=== PATIENT | male | born 1950 | race Caucasian/White ===

== ENCOUNTER → 2016-06-20 | Outpatient (CLI) | payer MEDICARE, OTHER ==
[2016-06-20 13:42] LABS: Anion Gap 11 mmol/L; Blood Urea Nitrogen 15 mg/dL (9-20); Calcium 9.6 mg/dL (8.4-10.2); Carbon Dioxide 26 mmol/L (22-30); Chloride 105 mmol/L (98-107); Glucose 126 mg/dL (74-99); Iron 72 ug/dL (49-181); Magnesium 1.7 mg/dL (1.6-2.3); Non-African American GFR(MDRD) 51 (>60 ml/min/1.73 sqM); Phosphorous 3.7 mg/dL (2.5-4.5); Potassium 4.4 mmol/L (3.5-5.1); Sodium 142 mmol/L (137-145); Uric Acid 6.7 mg/dL (3.5-8.5)
[2016-06-20 13:48] LABS: CH 29.9; CHCM 35.5; HCT 44.3 % (39.0-53.0); HGB 15.3 gm/dL (13.0-17.5); MCH 29.1 pg (25.0-35.0); MCHC 34.5 g/dL (31.0-37.0); MCV 84.3 fL (80.0-100.0); Mean Platelet Volume 6.8; RBC 5.25 m/uL (4.30-5.90); RDW 14.1 % (11.5-15.5); WBC 6.1 k/uL (3.8-10.6)
[2016-06-20 13:52] LABS: % Iron Saturation 22.6 % (20-50); Total Iron Binding Capacity 318 ug/dL (261-462)
[2016-06-21 12:31] LABS: Mis test requested (Non-blood) Urine Total Protein
== END | disposition home or self-care (01) ==
LOC: LABWHC1 12:36
PROVIDERS: ATTEND Nurse Practitioner Family
DX: N18.3 Chronic kidney disease, stage 3 (moderate) (principal); D64.9 Anemia, unspecified; E21.3 Hyperparathyroidism, unspecified; E55.9 Vitamin D deficiency, unspecified; M10.9 Gout, unspecified; N39.0 Urinary tract infection, site not specified; R80.9 Proteinuria, unspecified
CPT/HCPCS: 36415; 80048; 81050; 82306; 82728; 83540; 83550; 83735; 83970; 84100; 84156; 84550; 85027

== ENCOUNTER → 2016-07-25 | Outpatient (CLI) | payer MEDICARE, OTHER ==
[2016-07-25 19:30] LABS: Non-African American GFR(MDRD) 51 (>60 ml/min/1.73 sqM)
--- NOTE | 2016-07-25 22:13 | MR ---
EXAMINATION TYPE: MR brain wo/w mraneck wo/w con DATE OF EXAM: 07/25/2016 9:22 PM COMPARISON: MRI brain April 20, 2016. CT brain April 18, 2016. Carotid ultrasound April 20. HISTORY: HEADACHES, DIZZY, LOSS OF MEMORY, PROSTATE CA 2010 TECHNIQUE: Multiplanar, multisequence images of the brain and brainstem is performed without and with IV contras t, utilizing 20 mL intravenous MultiHance . MRA imaging of the neck focusing on carotid vessels was p erformed without and with IV contrast, 2-D and 3-D reconstructed images are created on MRI scanner an d reviewed. FINDINGS: Diffusion weighted images demonstrate no evidence of a recent infarct or other diffusion ab normality on current study. There is no worrisome extra-axial fluid collection. There is ventricular and sulcal prominence consistent with mild diffuse cerebral atrophy. Degree of ventricular dilatatio n is out of proportion to degree of sulcal prominence and a normal pressure hydrocephalus is not excl uded the ventricular size is not significantly changed from prior exams. 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 There is occasional focus of T2 hyperintensity seen throughout the w chapis matter bilaterally. Less than 6 small lesions are again identified. Lesions are presumed on basi s of product of chronic small vessel ischemic change in patient of this age. Midline structures demonstrate normal morphology. The craniocervical junction appears within normal limits. Post contrast images demonstrate no abnormal enhancement. The dural venous sinuses appear pa tent. The visualized sinuses are clear and the globes are intact. Increased fluid signal bilateral ma stoid air cells is again seen. IMPRESSION: There is mild diffuse cerebral atrophy and chronic small vessel ischemic change with a mi ld hydrocephalus excluded, no significant change from prior study is seen. Infarct inferior medial ri ght cerebellum is redemonstrated now chronic in age. Bilateral mastoid fluid is also redemonstrated. MRA NECK: There is normal three-vessel origin from the aortic arch. The right common carotid artery shows chai l origin from the right brachiocephalic artery. There is no significant focal plaque or stenosis in v isualized portion of common or internal carotid arteries bilaterally. There is patent external caroti d artery without significant stenosis identified. There is no significant plaque or stenosis left common or internal carotid arteries. No significant s tenosis is seen in patent left external carotid artery. Both internal carotid arteries are seen up to level of [place]. There is dominant right vertebral artery. Vertebral arteries are patent to the basilar junction. IMPRESSION: No significant focal stenosis in common or internal carotid arteries bilaterally. Finding s correlate with recent carotid ultrasound.
== END | disposition home or self-care (01) ==
LOC: RADMRIMAIN 18:42
PROVIDERS: ATTEND Psychiatry & Neurology Pain Medicine
DX: G31.9 Degenerative disease of nervous system, unspecified (principal); I67.82 Cerebral ischemia; I63.9 Cerebral infarction, unspecified
CPT/HCPCS: 82565; 70549; 70553; A9577

== ENCOUNTER → 2016-08-08 | Outpatient (CLI) | payer MEDICARE, OTHER ==
--- NOTE | 2016-08-09 09:02 | NM ---
EXAMINATION TYPE: NM DatScan Brain SPECT DATE OF EXAM: 08/08/2016 2:58 PM COMPARISON: NONE HISTORY: Memory loss TECHNIQUE: 10 drops of Lugol's solution was administered 1 hour prior to injection as a thyroid bloc edward agent. After the administration of 4.5 mCi I-123 Ioflupane DaTscan. Images obtained [address] injection. SPECT images of the brain were acquired with axial and coronal reconstructions. FINDINGS: Distribution of radiotracer is within normal limits. IMPRESSION: NORMAL NUCLEAR MEDICINE DATSCAN.
== END | disposition home or self-care (01) ==
LOC: RADNMMAIN 09:57
PROVIDERS: ATTEND Psychiatry & Neurology Neurology
DX: R41.3 Other amnesia (principal)
CPT/HCPCS: 78607; A9584

== ENCOUNTER 2016-10-04 09:12 | Observation (INO) | payer MEDICARE, OTHER ==
--- NOTE | 2016-10-04 09:24 | ED ---
General Adult HPI - General Chief complaint: Chest Pain Stated complaint: chest pain Time Seen by Provider: 10/04/16 09:17 Source: patient, EMS, RN notes reviewed Mode of arrival: EMS Limitations: no limitations - History of Present Illness Initial comments: Patient is a pleasant 65-year-old male presenting to the emergency department complaining of chest discomfort. Onset was around 4 AM. Symptoms lasted around 30 minutes. Symptoms awoke him from sleep. Symptoms have now resolved. Discomfort was sharp in the left chest. No associated dyspnea, nausea, or diaphoresis. Discomfort was severe. Patient has had similar symptoms previously associated with heart attack. - Related Data Home Medications Medication Instructions Recorded Confirmed Aspirin 81 mg PO DAILY 01/12/15 10/04/16 Kennedy-3 Acid Ethyl Esters [Lovaza] 1 cap PO DAILY 01/12/15 10/04/16 Gabapentin 800 mg PO BID 04/18/16 10/04/16 INSULIN LISPRO (For Pump) [humaLOG 0.01 units SQ-PUMP CONTINUOUS 04/18/16 (For Pump)] Previous Rx's Medication Instructions Recorded Atorvastatin [Lipitor] 40 mg PO HS #30 tab 01/17/15 Isosorbide Mononitrate ER [Imdur] 30 mg PO DAILY #30 tab.er.24h 01/17/15 Losartan [Cozaar] 50 mg PO DAILY #30 tab 01/17/15 Metoprolol Tartrate [Lopressor] 25 mg PO DAILY #30 tab 01/17/15 Nitroglycerin Sl Tabs [Nitrostat] 0.4 mg SUBLINGUAL Q5M PRN #25 tab 01/17/15 Prasugrel [Effient] 10 mg PO DAILY #30 tab 01/17/15 Allergies Allergy/AdvReac Type Severity Reaction Status Date / Time No Known Allergies Allergy Verified 10/04/16 09:54 Review of Systems ROS Statement: Those systems with pertinent positive or pertinent negative responses have been documented in the HPI. ROS Other: All systems not noted in ROS Statement are negative. Constitutional: Denies: fever Eyes: Denies: eye pain ENT: Denies: ear pain Respiratory: Denies: cough, dyspnea Cardiovascular: Reports: chest pain Endocrine: Denies: fatigue Gastrointestinal: Denies: abdominal pain Genitourinary: Denies: dysuria Musculoskeletal: Denies: back pain Skin: Denies: rash Neurological: Denies: weakness Past Medical History Past Medical History: Coronary Artery Disease (CAD), Cancer, Chest Pain / Angina , Diabetes Mellitus, Hyperlipidemia, Hypertension, Myocardial Infarction ([place]), Osteoarthritis (OA), Pneumonia Additional Past Medical History / Comment(s): neuropathy, prostate CA-GOLD IMPLANTS,PSORIASES,KIDNEY STONES, FX VERTEBRE(L3-L4-L5-S1)HAS CHRONIC BACK PAIN Last Myocardial Infarction Date:: 2010 History of Any Multi-Drug Resistant Organisms: None Reported Past Surgical History: Heart Catheterization With Stent Additional Past Surgical History / Comment(s): COLONOCOSPY, LUMBAR EPIDURAL INJ , STRESS TEST FEW MONTHS AGO-WNL, total 4 cardiac stents,juventino cataracts Past Anesthesia/Blood Transfusion Reactions: No Reported Reaction Additional Past Anesthesia/Blood Transfusion Reaction / Comment(s): CLAUSTERPHOBIC Date of Last Stent Placement:: 2010 Past Psychological History: No Psychological Hx Reported Additional Psychological History / Comment(s): PT LIVES AT HOME WITH HIS KWAN IS INDEPENDANT WITH HIS OWN CARE. USED TO WORK FOR [employer]. Smoking Status: Former smoker Past Alcohol Use History: None Reported Additional Past Alcohol Use History / Comment(s): USED TO SMOKE CIGARS Past Drug Use History: None Reported - Past Family History Father Family Medical History: Cancer Additional Family Medical History / Comment(s): BLADDER CANCER Mother Family Medical History: Cancer Additional Family Medical History / Comment(s): UTERINE CANCER General Exam Limitations: no limitations General appearance: alert, in no apparent distress Head exam: Present: atraumatic Eye exam: Present: normal appearance, PERRL ENT exam: Present: normal oropharynx Neck exam: Present: normal inspection Respiratory exam: Present: normal lung sounds bilaterally. Absent: chest wall tenderness Cardiovascular Exam: Present: regular rate, normal rhythm Expanded Peripheral pulses: 2+: Radial (R), Radial (L), Dorsalis Pedis (R), Dorsalis Pedis (L) GI/Abdominal exam: Present: soft. Absent: tenderness Extremities exam: Present: normal inspection. Absent: pedal edema, calf tenderness Neurological exam: Present: alert Psychiatric exam: Present: normal affect, normal mood Skin exam: Absent: rash Course Vital Signs 10/04/16 10/04/16 09:19 10:19 Temperature 98.7 F Pulse Rate 90 84 Respiratory 18 18 Rate Blood Pressure 177/97 150/84 O2 Sat by Pulse 97 97 Oximetry EKG Findings - EKG Comments: EKG Findings:: Normal sinus rhythm and 92. Normal intervals. Normal axis. Inferior Q waves. No acute ST change. Shows artifact in V2. Medical Decision Making - Medical Decision Making Patient reexamined and resting comfortably in bed. Patient symptom-free at this time. Patient and family updated on results and plan. Case was discussed in detail with Dr. Gold, who will admit his patient. - Lab Data Result diagrams: 10/04/16 09:30 10/04/16 09:30 Lab Results 10/04/16 10/04/16 10/04/16 Range/Units 09:30 09:30 09:30 WBC 6.8 (3.8-10.6) k/uL RBC 4.25 L (4.30-5.90) m/uL Hgb 12.7 L (13.0-17.5) gm/dL Hct 37.0 L (39.0-53.0) % MCV 86.9 (80.0-100.0) fL MCH 29.9 (25.0-35.0) pg MCHC 34.4 (31.0-37.0) g/dL RDW 14.2 (11.5-15.5) % Plt Count 228 (150-450) k/uL Neutrophils % 82 % Lymphocytes % 7 % Monocytes % 7 % Eosinophils % 2 % Basophils % 1 % Neutrophils # 5.6 (1.3-7.7) k/uL Lymphocytes # 0.5 L (1.0-4.8) k/uL Monocytes # 0.5 (0-1.0) k/uL Eosinophils # 0.1 (0-0.7) k/uL Basophils # 0.0 (0-0.2) k/uL PT (9.0-12.0) sec INR (<1.1) APTT (22.0-30.0) sec Sodium 138 (137-145) mmol/L Potassium 4.6 (3.5-5.1) mmol/L Chloride 105 (98-107) mmol/L Carbon Dioxide 24 (22-30) mmol/L Anion Gap 9 mmol/L BUN 19 (9-20) mg/dL Creatinine 1.48 H (0.66-1.25) mg/dL Est GFR (MDRD) Af Amer 58 (>60 ml/min/1.73 sqM) Est GFR (MDRD) Non-Af 48 (>60 ml/min/1.73 sqM) Glucose 280 H (74-99) mg/dL Calcium 9.4 (8.4-10.2) mg/dL Magnesium 1.6 (1.6-2.3) mg/dL Total Bilirubin 1.2 (0.2-1.3) mg/dL AST 47 (17-59) U/L ALT 76 H (21-72) U/L Alkaline Phosphatase 227 H (38-126) U/L Total Creatine Kinase 77 (55-170) U/L CK-MB (CK-2) 0.5 (0.0-2.4) ng/mL CK-MB (CK-2) Rel Index 0.6 Troponin I <0.012 (0.000-0.034) ng/mL Total Protein 6.2 L (6.3-8.2) g/dL Albumin 3.4 L (3.5-5.0) g/dL 10/04/16 Range/Units 09:30 WBC (3.8-10.6) k/uL RBC (4.30-5.90) m/uL Hgb (13.0-17.5) gm/dL Hct (39.0-53.0) % MCV (80.0-100.0) fL MCH (25.0-35.0) pg MCHC (31.0-37.0) g/dL RDW (11.5-15.5) % Plt Count (150-450) k/uL Neutrophils % % Lymphocytes % % Monocytes % % Eosinophils % % Basophils % % Neutrophils # (1.3-7.7) k/uL Lymphocytes # (1.0-4.8) k/uL Monocytes # (0-1.0) k/uL Eosinophils # (0-0.7) k/uL Basophils # (0-0.2) k/uL PT 10.1 (9.0-12.0) sec INR 1.0 (<1.1) APTT 23.0 (22.0-30.0) sec Sodium (137-145) mmol/L Potassium (3.5-5.1) mmol/L Chloride (98-107) mmol/L Carbon Dioxide (22-30) mmol/L Anion Gap mmol/L BUN (9-20) mg/dL Creatinine (0.66-1.25) mg/dL Est GFR (MDRD) Af Amer (>60 ml/min/1.73 sqM) Est GFR (MDRD) Non-Af (>60 ml/min/1.73 sqM) Glucose (74-99) mg/dL Calcium (8.4-10.2) mg/dL Magnesium (1.6-2.3) mg/dL Total Bilirubin (0.2-1.3) mg/dL AST (17-59) U/L ALT (21-72) U/L Alkaline Phosphatase (38-126) U/L Total Creatine Kinase (55-170) U/L CK-MB (CK-2) (0.0-2.4) ng/mL CK-MB (CK-2) Rel Index Troponin I (0.000-0.034) ng/mL Total Protein (6.3-8.2) g/dL Albumin (3.5-5.0) g/dL - Radiology Data Radiology results: image reviewed (Chest x-ray shows left lower lobe atelectasis versus pneumonia) Disposition Clinical Impression: Unstable angina pectoris Disposition: ADMITTED IP TO THIS HOSP
[2016-10-04 09:47] LABS: Basophils % (A) 1 %; CH 30.7; CHCM 35.4; Eosinophils # (A) 0.1 k/uL (0-0.7); Eosinophils % (A) 2 %; HDW 3.25; HGB 12.7 gm/dL (13.0-17.5); Luc # (Auto) 0.17; Luc % (Auto) 3; Lymphocytes # (A) 0.5 k/uL (1.0-4.8); Lymphocytes % (A) 7 %; MCH 29.9 pg (25.0-35.0); MCHC 34.4 g/dL (31.0-37.0); MCV 86.9 fL (80.0-100.0); Mean Platelet Volume 6.8; Monocytes # (A) 0.5 k/uL (0-1.0); Monocytes % (A) 7 %; Neutrophils # (A) 5.6 k/uL (1.3-7.7); Neutrophils % (A) 82 %; RBC 4.25 m/uL (4.30-5.90); RDW 14.2 % (11.5-15.5); WBC 6.8 k/uL (3.8-10.6); WBC (Perox) 6.78
[2016-10-04 09:56] LABS: Prothrombin Time 10.1 sec (9.0-12.0)
[2016-10-04 10:00] LABS: Calcium 9.4 mg/dL (8.4-10.2); Magnesium 1.6 mg/dL (1.6-2.3); Potassium 4.6 mmol/L (3.5-5.1); Total Bilirubin 1.2 mg/dL (0.2-1.3); Total Protein 6.2 g/dL (6.3-8.2)
[2016-10-04 10:11] LABS: Creatine Kinase 77 U/L (55-170)
--- NOTE | 2016-10-04 10:20 | XR ---
EXAMINATION TYPE: XR chest 2V DATE OF EXAM: 10/04/2016 10:03 AM COMPARISON: 04/18/2016 INDICATION: Chest pain TECHNIQUE: 2 view chest x-ray FINDINGS: The heart size is normal. The pulmonary vasculature is normal. There is streak opacities at the right base. This present previously. Consider scarring. The lateral projection there is increased density in the retrocardiac region appears to be at the lef t base on the frontal view. Clinical correlation for mild left lower lobe atelectasis or pneumonia is recommended. IMPRESSION: 1. Left lower lobe atelectasis or pneumonia. 2. Suspected scarring right base
[2016-10-04 10:24] LABS: Creatine Kinase MB 0.5 ng/mL (0.0-2.4); Troponin I <0.012 ng/mL (0.000-0.034)
[2016-10-04] MEDS ORDERED: NITROGLYCERIN SL TABS 0.4 MG TAB SUBLINGUAL PRN (10:50)
[2016-10-04] MEDS ORDERED: HEPARIN SODIUM,PORCINE 5,000 UNIT/ML 1 ML VIAL IV ONE (10:50)
[2016-10-04] MEDS ORDERED: HEPARIN SODIUM,PORCINE/D5W PMX 25,000 UNIT in DEXTROSE/WATER 1 500ML.BAG IV SCH (11:00)
[2016-10-04 11:58] LABS: Glucose,Whole Blood 306 mg/dL (75-99)
[2016-10-04 14:14] VITALS: BMI 35.4
[2016-10-04] MEDS ORDERED: INSULIN LISPRO (For Pump) 100 UNIT/ML VIAL SQ-PUMP SCH (14:45)
[2016-10-04] MEDS: NITROGLYCERIN OINT 1 INCH/GM PACKET TOPICAL SCH ×2 (17:03→23:16)
[2016-10-04 17:22] LABS: Creatine Kinase 70 U/L (55-170)
[2016-10-04 17:23] LABS: Glucose,Whole Blood 175 mg/dL (75-99)
[2016-10-04 17:35] LABS: Creatine Kinase MB 0.5 ng/mL (0.0-2.4); Troponin I <0.012 ng/mL (0.000-0.034)
[2016-10-04] MEDS: HEPARIN SODIUM,PORCINE 5,000 UNIT/ML 1 ML VIAL IV PRN (18:20)
[2016-10-04 22:01] LABS: Creatine Kinase 60 U/L (55-170)
[2016-10-04 22:12] LABS: Creatine Kinase MB 0.5 ng/mL (0.0-2.4); Troponin I <0.012 ng/mL (0.000-0.034)
[2016-10-04] MEDS: GABAPENTIN 400 MG CAP PO SCH (23:21)
[2016-10-04] MEDS: ATORVASTATIN 40 MG TAB PO SCH (23:22)
[2016-10-04 23:35] LABS: Glucose,Whole Blood 103 mg/dL (75-99)
[2016-10-05] MEDS: NITROGLYCERIN OINT 1 INCH/GM PACKET TOPICAL SCH (01:30)
[2016-10-05] MEDS: HEPARIN SODIUM,PORCINE 5,000 UNIT/ML 1 ML VIAL IV PRN (04:46)
[2016-10-05 07:00] LABS: Glucose,Whole Blood 95 mg/dL (75-99)
[2016-10-05 07:17] LABS: Mean Platelet Volume 6.7
[2016-10-05 07:27] LABS: Cholesterol 166 mg/dL (<200); HDL Cholesterol 40 mg/dL (40-60); Triglycerides 178 mg/dL (<150)
--- NOTE | 2016-10-05 08:55 | US ---
EXAMINATION TYPE: US gallbladder DATE OF EXAM: 10/05/2016 8:04 AM COMPARISON: NONE CLINICAL HISTORY: 65-year-old male with right upper quadrant and chest pain. TECHNIQUE: Multiple sonographic images of the right upper quadrant are obtained. FINDINGS: [employer] NOTES: Patient of large body habitus, with large abdomen and extensive midline bowel gas causing technical limitations. Liver Length: 19.5 cm Gallbladder Wall: 0.4 cm CBD: 0.3 cm Right Kidney: 12.0 x 4.5 x 5.2 cm Pancreas: Obscured by bowel gas Liver: Left lobe not well seen due to bowel gas shadowing. The liver is enlarged with a echogenic an d heterogeneous appearance with far field attenuation. This secondary limits assessment for focal les ion. Gallbladder: Calculi are present. No abnormal gallbladder distention, wall thickening, or pericholecy stic fluid. Evidence for sonographic Gonzalez's sign: No CBD: Only a small portion is visualized showing normal caliber. Right Kidney: No hydronephrosis. IMPRESSION: 1. Technical limitations as above. 2. Hepatomegaly with changes in liver echotexture suggesting hepatic steatosis. Correlate with LFTs, lipid profile, and patient risk factors. 3. Cholelithiasis without ancillary findings of acute cholecystitis.
[2016-10-05] MEDS: GABAPENTIN 400 MG CAP PO SCH ×2 (08:58→21:00)
[2016-10-05] MEDS: ASPIRIN 325 MG TAB PO SCH (08:58)
[2016-10-05] MEDS ORDERED: PNEUMONIA PROTOCOL UTILIZED 1 EACH MISC PO PRN (11:32)
[2016-10-05] MEDS ORDERED: LEVOFLOXACIN 750MG-D5W PMX 750 MG in DEXTROSE/WATER 1 150ML.BAG IVPB STA (11:59)
[2016-10-05] MEDS: ISOSORBIDE MONONITRATE ER 30 MG TAB.ER.24H PO SCH (12:02)
[2016-10-05] MEDS: METOPROLOL TARTRATE 25 MG TAB PO SCH (12:03)
[2016-10-05] MEDS: LOSARTAN 50 MG TAB PO SCH (12:03)
--- NOTE | 2016-10-05 12:12 | P.CRDCN ---
History of Present Illness Consult date: 10/05/16 History of present illness: This is a 65-year-old gentleman with history of a diffuse coronary artery disease and one multiple stent placements comes here because of left-sided chest pain. History had a recent stress test which showed normal perfusion function. Apparently he woke up around 4:00 in the morning and had severe chest pain on the left side of the chest. Any body movements or coughing would aggravate the pain. As long as patient is still, he doesn't have any chest pain. He is having symptoms of bronchitis and cough for several days. His cardiac enzymes are negative. EKG did not reveal any acute changes. Chest x- ray showed findings consistent with a pneumonia on the left side. His pains appear to be pleuritic and probably noncardiac in nature. His liver enzymes and alkaline phosphatase mildly elevated. However, ultrasound of the gallbladder did not reveal any findings of acute cholecystitis. Most probably these are pleuritic in nature and related to pneumonia. No further cardiac testing is suggested. Review of Systems REVIEW OF SYSTEMS: CONSTITUTIONAL:. Patient is doing well. No complaints of fever or chills EYES: Denies diplopia, blurring of vision EARS, NOSE, MOUTH, THROAT: Denies headaches, denies sore throat. CARDIOVASCULAR: As per HPI RESPIRATORY: As per HPI GASTROINTESTINAL: Denies change in appetite, denies abdominal pain, denies diarrhea GENITOURINARY: Denies hematuria, denies infections. MUSKULOSKELETAL: Denies pain, denies swelling. Denies any cramps or claudication INTEGUMENTARY: Denies rash, denies eczema. NEUROLOGICAL: Denies focal weakness, or visual disturbance. Denies any dizziness or syncope PSYCHIATRIC: Denies anxiety, denies depression. HEMATOLOGIC/LYMPHATIC: Denies any bleeding, denies enlarged lymph nodes. Past Medical History Past Medical History: Coronary Artery Disease (CAD), Cancer, Chest Pain / Angina , CVA/TIA, Diabetes Mellitus, Hyperlipidemia, Hypertension, Myocardial Infarction ([place]), Osteoarthritis (OA), Pneumonia Additional Past Medical History / Comment(s): neuropathy, prostate CA-(GOLD IMPLANTS for prostate CA) ,PSORIASES,KIDNEY STONES, FX VERTEBRE(L3-L4-L5-S1)HAS CHRONIC BACK PAIN...1 stent in 2010 and 3 stents in 2014...stroke April 18, 2016 Last Myocardial Infarction Date:: 2010 History of Any Multi-Drug Resistant Organisms: None Reported Past Surgical History: Heart Catheterization With Stent Additional Past Surgical History / Comment(s): COLONOCOSPY, LUMBAR EPIDURAL INJ , STRESS TEST FEW MONTHS AGO-WNL, total 4 cardiac stents (2010 1 stent and 2014 3 stents),juventino cataracts Past Anesthesia/Blood Transfusion Reactions: No Reported Reaction Additional Past Anesthesia/Blood Transfusion Reaction / Comment(s): CLAUSTERPHOBIC Date of Last Stent Placement:: 2010 Past Psychological History: No Psychological Hx Reported Additional Psychological History / Comment(s): PT LIVES AT HOME WITH HIS KWAN IS INDEPENDANT WITH HIS OWN CARE. 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 Smoking Status: Former smoker Past Alcohol Use History: None Reported Additional Past Alcohol Use History / Comment(s): USED TO SMOKE CIGARS Past Drug Use History: None Reported - Past Family History Father Family Medical History: Cancer Additional Family Medical History / Comment(s): BLADDER CANCER Mother Family Medical History: Cancer Additional Family Medical History / Comment(s): UTERINE CANCER Medications and Allergies Home Medications Medication Instructions Recorded Confirmed Type Aspirin 81 mg PO DAILY 01/12/15 10/04/16 History Offerle-3 Acid Ethyl Esters [Lovaza] 1 cap PO DAILY 01/12/15 10/04/16 History Gabapentin 800 mg PO BID 04/18/16 10/04/16 History INSULIN LISPRO (For Pump) [humaLOG 0.01 units SQ-PUMP CONTINUOUS 04/18/16 History (For Pump)] Allergies Allergy/AdvReac Type Severity Reaction Status Date / Time No Known Allergies Allergy Verified 10/04/16 09:54 Physical Exam Vitals: Vital Signs Temp Pulse Pulse Pulse Resp BP Pulse Ox 10/05/16 08:00 97.7 F 86 18 119/79 93 L 10/05/16 04:00 98 F 89 16 151/76 95 10/05/16 00:00 97.8 F 91 16 138/67 97 10/04/16 20:00 97.8 F 86 16 173/84 95 10/04/16 16:00 98.7 F 77 16 148/65 95 10/04/16 12:35 98.8 F 91 16 147/93 93 L Intake and Output 10/04/16 10/05/16 10/05/16 22:59 06:59 14:59 Intake Total 145.188 279.405 Balance 145.188 279.405 Intake: Intake, IV Titration 145.188 279.405 Amount Heparin Sodium,Porcine/ 145.188 279.405 D5w Pmx 25,000 unit In Dextrose/Water 1 500ml. bag @ 8.81 UNITS/KG/HR 19 .98 mls/hr IV .Q24H [facility] Rx#:[id number] Other: Voiding Method Toilet Toilet # Voids 2 0 GENERAL EXAM: Patient is alert and oriented and doesn't appear to be in any acute distress HEENT: Normocephalic. Normal reaction of pupils, equal size, normal range of extraocular motion. No erythema or exudates in the throat. NECK: No masses, no nuchal rigidity. CHEST: No chest wall deformity. LUNGS: Diffuse rhonchi and wheezing HEART: S1 and S2 normal with no audible mumurs or gallops. Regular rhythm, femorals equal on both sides.. ABDOMEN: No hepatosplenomegaly, normal bowel sounds, no guarding or rigidity. SKIN: No rashes CENTRAL NERVOUS SYSTEM: No focal deficits. EXTREMITIES: No cyanosis, clubbing or edema. Results 10/05/16 07:05 10/04/16 09:30 Cardiac Enzymes 10/04/16 10/04/16 Range/Units 16:36 21:09 CK-MB (CK-2) 0.5 0.5 (0.0-2.4) ng/mL Troponin I <0.012 <0.012 (0.000-0.034) ng/mL Coagulation 10/04/16 10/05/16 Range/Units 16:36 00:28 APTT 27.9 34.5 H (22.0-30.0) sec Lipids 10/05/16 Range/Units 06:59 Triglycerides 178 H (<150) mg/dL Cholesterol 166 (<200) mg/dL HDL Cholesterol 40 (40-60) mg/dL CBC 10/05/16 Range/Units 07:05 Plt Count 237 (150-450) k/uL Current Medications Generic Name Dose Route Start Last Admin Trade Name Freq PRN Reason Stop Dose Admin Aspirin 325 mg 10/05/16 09:00 10/05/16 08:58 Aspirin PO 325 mg DAILY [facility] Administration Atorvastatin Calcium 40 mg 10/04/16 21:00 10/04/16 23:22 Lipitor PO 40 mg HS PA Administration Gabapentin 800 mg 10/04/16 21:00 10/05/16 08:58 Neurontin PO 800 mg BID PA Administration Heparin Sodium (Porcine) 0 unit 10/04/16 10:50 10/05/16 04:46 Heparin IV 4,000 unit Q6HR PRN Administration Low PTT Protocol Heparin Sodium/Dextrose 25,000 500 mls @ 19.98 mls/hr 10/04/16 11:00 04:47 unit/ IV Solution IV 14.46 units/kg/hr .Q24H PA 32.8 mls/hr Protocol Titration 8.81 UNITS/KG/HR Levofloxacin 750 mg/ IV 150 mls @ 100 mls/hr 10/05/16 11:59 Solution IVPB 10/05/16 13:28 ONCE STA Insulin Human Lispro 0.01 unit 10/04/16 14:45 10/04/16 18:02 Humalog (For Pump) SQ-PUMP Not Given CONTINUOUS PA Isosorbide Mononitrate 30 mg 10/05/16 09:00 10/05/16 12:02 Imdur PO 30 mg DAILY PA Administration Levofloxacin 750 mg 10/06/16 12:00 Levaquin PO 10/11/16 12:01 Q24H PA Losartan Potassium 50 mg 10/05/16 09:00 10/05/16 12:03 Cozaar PO 50 mg DAILY PA Administration Metoprolol Tartrate 25 mg 10/05/16 09:00 10/05/16 12:03 Lopressor PO 25 mg DAILY PA Administration Miscellaneous Information 1 each 10/05/16 11:32 Pneumonia Protocol Utilized PO ONCE PRN Per Protocol Nitroglycerin 0.4 mg 10/04/16 10:50 Nitrostat SUBLINGUAL Q5M PRN Chest Pain Sodium Chloride 10 ml 10/04/16 21:00 10/05/16 08:57 Saline Flush IV Not Given BID PA Intake and Output 10/04/16 10/05/16 10/05/16 22:59 06:59 14:59 Intake Total 145.188 279.405 Balance 145.188 279.405 Intake: Intake, IV Titration 145.188 279.405 Amount Heparin Sodium,Porcine/ 145.188 279.405 D5w Pmx 25,000 unit In Dextrose/Water 1 500ml. bag @ 8.81 UNITS/KG/HR 19 .98 mls/hr IV .Q24H [facility] Rx#:[id number] Other: Voiding Method Toilet Toilet # Voids 2 0 10/05/16 07:05 EKG Interpretations (text) Sinus rhythm Assessment and Plan (1) Atypical chest pain Status: Acute (2) Status post coronary artery stent placement Status: Acute (3) CAD (coronary artery disease) Status: Acute Plan: He chest pains appear to be muscular skeletal. Chest x-ray shows evidence of left-sided pneumonia. I would suggest that patient have pulmonary evaluation and antibiotic therapy and symptomatic medical treatment. His recent nuclear stress test showed normal perfusion. No further cardiac workup is suggested at this time.
[2016-10-05 12:16] LABS: Glucose,Whole Blood 68 mg/dL (75-99)
[2016-10-05 12:28] LABS: Glucose,Whole Blood 69 mg/dL (75-99)
[2016-10-05 12:32] LABS: Glucose,Whole Blood 113 mg/dL (75-99)
[2016-10-05 13:13] LABS: Hemoglobin A1C 7.8 % (4.2-6.1)
[2016-10-05] MEDS ORDERED: INSULIN PUMP TARGET GLUCOSE 1 EACH MISC MISCELLANE PRN (13:54)
[2016-10-05] MEDS ORDERED: INSPUCOR MISCELLANE PRN (13:54)
[2016-10-05] MEDS ORDERED: INSULIN PUMP BASAL RATES 1 EACH MISC MISCELLANE PRN (13:54)
[2016-10-05] MEDS ORDERED: INSULIN LISPRO (humaLOG) 300 UNIT/3 ML VIAL SQ PRN (13:54)
[2016-10-05] MEDS ORDERED: INSULIN PUMP ACTIVE INSULIN 1 EACH MISC MISCELLANE PRN (13:54)
--- NOTE | 2016-10-05 15:47 | P.HPIM ---
History of Present Illness H&P Date: 10/05/16 Chief Complaint: Chest pain Patient is a 65-year-old male, patient of Dr. Cedric Gold in the outpatient setting, with medical history significant for coronary artery disease with previous heart catheterizations and stent placements, myocardial infarctions, diabetes mellitus insulin-requiring, hyperlipidemia, hypertension, prostate cancer, chronic back pain, psoriasis, CVA, and previous nicotine dependence. Patient presented to the emergency department with complaints of left sternal chest pain. Patient states that he woke up in the middle of the night with a sharp pain that was different from his previous heart attacks. Patient denies associated symptoms. Patient states that the pain lasted approximately 2 hours. Chest x-ray with evidence of left lower lobe atelectasis or pneumonia. EKG on admission with evidence of a normal sinus rhythm with no acute ST-T elevation or depression. ALT and alkaline phosphatase slightly elevated. C-reactive protein elevated at 163.5. Ultrasound of abdomen with evidence of hepatic steatosis and cholelithiasis without findings of acute cholecystitis. Troponin less than 0.012. Patient was admitted to the observation unit on IV heparin will consult to cardiology service for unstable angina. Cardiology service evaluated patient and suggested that patients chest pain to be more pleuritic and probable noncardiac in nature suspect secondary to pneumonia. No further cardiac testing was ordered. Consult has been requested to Dr. Maldonado for pulmonology service for left lower lobe pneumonia. Upon examination, patient is lying in bed. Patient currently is chest pain- free. Patient complains of mild cough. Denies chills, nausea, vomiting, fevers , abdominal pain, or leg swelling. Patient reports good appetite. Past Medical History Past Medical History: Coronary Artery Disease (CAD), Cancer, Chest Pain / Angina , CVA/TIA, Diabetes Mellitus, Hyperlipidemia, Hypertension, Myocardial Infarction (NH), Osteoarthritis (OA), Pneumonia Additional Past Medical History / Comment(s): neuropathy, prostate CA-([employer] for prostate CA) ,PSORIASES,KIDNEY STONES, FX VERTEBRE(L3-L4-L5-S1)HAS CHRONIC BACK PAIN...1 stent in 2010 and 3 stents in 2014...stroke April 18, 2016 Last Myocardial Infarction Date:: 2010 History of Any Multi-Drug Resistant Organisms: None Reported Past Surgical History: Heart Catheterization With Stent Additional Past Surgical History / Comment(s): COLONOCOSPY, LUMBAR EPIDURAL INJ , STRESS TEST FEW MONTHS AGO-WNL, total 4 cardiac stents (2010 1 stent and 2014 3 stents),juventino cataracts Past Anesthesia/Blood Transfusion Reactions: No Reported Reaction Additional Past Anesthesia/Blood Transfusion Reaction / Comment(s): CLAUSTERPHOBIC Date of Last Stent Placement:: 2010 Past Psychological History: No Psychological Hx Reported Additional Psychological History / Comment(s): PT LIVES AT HOME WITH HIS KWAN IS INDEPENDANT WITH HIS OWN CARE. USED TO WORK FOR [employer]. Smoking Status: Former smoker Past Alcohol Use History: None Reported Additional Past Alcohol Use History / Comment(s): USED TO SMOKE CIGARS Past Drug Use History: None Reported - Past Family History Father Family Medical History: Cancer Additional Family Medical History / Comment(s): BLADDER CANCER Mother Family Medical History: Cancer Additional Family Medical History / Comment(s): UTERINE CANCER Medications and Allergies Home Medications Medication Instructions Recorded Confirmed Type Aspirin 81 mg PO DAILY 01/12/15 10/04/16 History Nickerson-3 Acid Ethyl Esters [Lovaza] 1 cap PO DAILY 01/12/15 10/04/16 History Gabapentin 800 mg PO BID 04/18/16 10/04/16 History INSULIN LISPRO (For Pump) [humaLOG 0.01 units SQ-PUMP CONTINUOUS 04/18/16 History (For Pump)] Allergies Allergy/AdvReac Type Severity Reaction Status Date / Time No Known Allergies Allergy Verified 10/04/16 09:54 Physical Exam Vitals: Vital Signs Temp Pulse Pulse Pulse Resp BP Pulse Ox 10/05/16 12:00 97.9 F 78 16 138/80 90 L 10/05/16 08:00 97.7 F 86 18 119/79 93 L 10/05/16 04:00 98 F 89 16 151/76 95 10/05/16 00:00 97.8 F 91 16 138/67 97 10/04/16 20:00 97.8 F 86 16 173/84 95 10/04/16 16:00 98.7 F 77 16 148/65 95 Intake and Output 10/05/16 10/05/16 10/05/16 06:59 14:59 22:59 Intake Total 279.405 240 Balance 279.405 240 Intake: Intake, IV Titration 279.405 Amount Heparin Sodium,Porcine/ 279.405 D5w Pmx 25,000 unit In Dextrose/Water 1 500ml. bag @ 8.81 UNITS/KG/HR 19 .98 mls/hr IV .Q24H PA Rx#:[id number] Oral 240 Other: Voiding Method Toilet Toilet # Voids 0 GENERAL: Pt awake and alert, well-appearing, well-nourished, and in no acute distress. HEAD: Atraumatic, normocephalic. EYES: Pupils equal and round. Sclera anicteric, conjunctiva are normal. ENT: Oropharynx clear without exudates. Moist mucous membranes. Tongue smooth, pink, no lesions, protrudes in midline. NECK:Supple without lymphadenopathy or JVD. LUNGS: Breath sounds diminished to auscultation bilaterally. No wheezes, rales , or rhonchi. HEART: Heart S1, S2, no S3 or S4. Regular rate and rhythm. No murmurs, rubs or gallops. ABDOMEN: Soft, obese, nontender, nondistended, normoactive bowel sounds. No guarding, no rebound. No masses or organomegaly appreciated. EXTREMITIES: 2+ peripheral pulses. No edema. No calf tenderness. NEUROLOGICAL: Pt oriented x 3. No focal deficits. Strength and sensation grossly intact. PSYCH: Normal mood, normal affect. SKIN: Warm, dry, intact. Normal turgor. No rashes or lesions. Results CBC & Chem 7: 10/05/16 07:05 10/04/16 09:30 Labs: Abnormal Lab Results - Last 24 Hours (Table) 10/04/16 10/04/16 10/05/16 Range/Units 17:18 23:24 00:28 APTT 34.5 H (22.0-30.0) sec POC Glucose (mg/dL) 175 H 103 H (75-99) mg/dL Hemoglobin A1c (4.2-6.1) % C-Reactive Protein (<10.0) mg/L Triglycerides (<150) mg/dL 10/05/16 10/05/16 10/05/16 Range/Units 06:59 06:59 10:53 APTT 33.9 H (22.0-30.0) sec POC Glucose (mg/dL) (75-99) mg/dL Hemoglobin A1c 7.8 H (4.2-6.1) % C-Reactive Protein (<10.0) mg/L Triglycerides 178 H (<150) mg/dL 10/05/16 10/05/16 10/05/16 Range/Units 12:04 12:12 12:16 APTT (22.0-30.0) sec POC Glucose (mg/dL) 68 L 69 L (75-99) mg/dL Hemoglobin A1c (4.2-6.1) % C-Reactive Protein 163.5 H (<10.0) mg/L Triglycerides (<150) mg/dL 10/05/16 Range/Units 12:31 APTT (22.0-30.0) sec POC Glucose (mg/dL) 113 H (75-99) mg/dL Hemoglobin A1c (4.2-6.1) % C-Reactive Protein (<10.0) mg/L Triglycerides (<150) mg/dL Chest x-ray: report reviewed Thrombosis Risk Factor Assmnt - DVT/VTE Prophylaxis DVT/VTE Prophylaxis: Pharmacologic Prophylaxis ordered - Choose All That Apply Any of the Below Risk Factors Present?: Yes Each Factor Represents 1 point: Obesity (BMI >25) Other Risk Factors: Yes Each Risk Factor Represents 2 Points: Age 61-74 years Other congenital or acquired thrombophilia - If yes, enter type in comment: No Thrombosis Risk Factor Assessment Total Risk Factor Score: 3 Thrombosis Risk Factor Assessment Level: Moderate Risk Assessment and Plan Plan: Impression and plan: 1. Chest pain, atypical. Troponin negative 1. EKG without evidence of ischemia. Cardiology is following patient. 2. Left lower lobe pneumonia. Patient has been started on pneumonia protocol. Consult requested for pulmonary service, recommendations pending. 3. Chronic renal failure, stage III. 4. Diabetes mellitus, insulin requiring. Hemoglobin A1c 7.8. Patient has own insulin pump. staff educator consult requested. 5. Elevated ALT and alkaline phosphatase, present on admission, suspect secondary to fatty liver. 6. Cholelithiasis without evidence of acute cholecystitis. 7. Coronary artery disease with history of heart catheterization and stent placement. 8. History of CVA. 9. Hyperlipidemia. 10. Hypertension. 11. History of chronic back pain. 12. History of prostate cancer. 13. History of nicotine dependence. Continue to monitor patient. Continue antibiotics for pneumonia. Will obtain sputum and blood cultures. Continue to follow with cardiology and pulmonology service. Home medications have been reviewed and resumed as appropriate. Repeat CBC, BMP in a.m. The above impression and plan have been discussed and directed by Dr. Gold. Jennifer NATION-Nazario acting as scribe for Dr. Gold.
[2016-10-05 16:49] LABS: Glucose,Whole Blood 90 mg/dL (75-99)
[2016-10-05 19:48] VITALS: RESP 18
[2016-10-05 20:08] LABS: Glucose,Whole Blood 115 mg/dL (75-99)
[2016-10-05] MEDS: INSULIN PUMP MEAL BOLUS 1 UNIT MISC MISCELLANE SCH ×2 (20:53→21:02)
[2016-10-05] MEDS: ATORVASTATIN 40 MG TAB PO SCH (21:00)
[2016-10-06 06:52] LABS: Basophils % (A) 1 %; CH 30.8; CHCM 35.3; Eosinophils # (A) 0.2 k/uL (0-0.7); Eosinophils % (A) 2 %; HCT 37.9 % (39.0-53.0); HDW 3.26; HGB 12.7 gm/dL (13.0-17.5); Luc # (Auto) 0.14; Luc % (Auto) 2; Lymphocytes # (A) 0.5 k/uL (1.0-4.8); Lymphocytes % (A) 7 %; MCH 29.3 pg (25.0-35.0); MCHC 33.4 g/dL (31.0-37.0); MCV 87.6 fL (80.0-100.0); Mean Platelet Volume 6.6; Monocytes # (A) 0.4 k/uL (0-1.0); Monocytes % (A) 5 %; Neutrophils # (A) 5.8 k/uL (1.3-7.7); Neutrophils % (A) 83 %; RBC 4.33 m/uL (4.30-5.90); WBC (Perox) 7.01
[2016-10-06 06:58] LABS: Glucose,Whole Blood 82 mg/dL (75-99)
[2016-10-06 07:48] LABS: ALT 51 U/L (21-72); AST 28 U/L (17-59); Alkaline Phosphatase 225 U/L (38-126); Anion Gap 10 mmol/L; Blood Urea Nitrogen 15 mg/dL (9-20); Calcium 9.6 mg/dL (8.4-10.2); Carbon Dioxide 24 mmol/L (22-30); Chloride 105 mmol/L (98-107); Glucose 76 mg/dL (74-99); Non-African American GFR(MDRD) 53 (>60 ml/min/1.73 sqM); Potassium 4.1 mmol/L (3.5-5.1); Sodium 139 mmol/L (137-145); Total Bilirubin 1.1 mg/dL (0.2-1.3); Total Protein 6.6 g/dL (6.3-8.2)
[2016-10-06] MEDS: GABAPENTIN 400 MG CAP PO SCH (08:15)
[2016-10-06] MEDS: LOSARTAN 50 MG TAB PO SCH (08:15)
[2016-10-06] MEDS: METOPROLOL TARTRATE 25 MG TAB PO SCH (08:15)
[2016-10-06] MEDS: ISOSORBIDE MONONITRATE ER 30 MG TAB.ER.24H PO SCH (08:15)
[2016-10-06] MEDS: ASPIRIN 325 MG TAB PO SCH (08:16)
[2016-10-06] MEDS: INSULIN PUMP MEAL BOLUS 1 UNIT MISC MISCELLANE SCH ×2 (08:16→12:43)
[2016-10-06 08:35] VITALS: BP 131/67; PULSE 105; TEMP 98
[2016-10-06] MEDS ORDERED: LEVOFLOXACIN 750 MG TAB PO SCH (12:00)
[2016-10-06 12:16] LABS: Glucose,Whole Blood 176 mg/dL (75-99)
--- NOTE | 2016-10-06 15:35 | CONS ---
DATE OF CONSULTATION: 10/06/2016 This is a very pleasant 65-year-old gentleman who follows with Dr. Gold as his primary care physician. He has a history of coronary artery disease, prostate cancer, CVA, diabetes mellitus, hyperlipidemia, hypertension. He also has a history of smoking cigars for approximately 20 years, but quit many years ago. He had presented here by ambulance on October 04, 2016 with complaints of chest pain. He was seen and evaluated by Cardiology who felt the pain was atypical. His chest x-ray did reveal some left lower lung atelectasis/infiltrate, and we were consulted for the same. He is seen today in consultation on the observation unit. He is awake and alert, in no acute distress. He really had no significant pneumonia-like symptoms. No fever, chills, night sweats. Nonproductive cough. He is maintaining good O2 saturation in the low 90s on room air. He has been afebrile and no leukocytosis. He currently denies any worsening shortness of breath, cough or congestion. He chest discomfort has subsided. He has been initiated on antibiotics in the form of Levaquin along with being initiated on Levaquin. Past medical history includes coronary artery disease, prostate cancer, hyperlipidemia, hypertension, diabetes mellitus. Past surgical history includes cardiac catheterization with previous stent placements, lumbar epidural injection, cataracts, colonoscopy. SOCIAL HISTORY: The patient has a remote history of cigar smoking. Denies excessive alcohol use or illicit drug use. Allergies are no known allergies. HOME MEDICATIONS: Effient 10 mg daily, Lovaza 1 capsule daily, Nitrostat 0.4 mg sublingual p.r.n., Lopressor 25 mg daily, Cozaar 50 mg daily, Imdur 30 mg daily, Humalog insulin, gabapentin 800 mg b.i.d., Lipitor 40 mg at bedtime, aspirin 81 mg daily. REVIEW OF SYSTEMS: A 14-point review of system was conducted; all negative other than as mentioned in the HPI. On physical exam, he is alert and oriented, in no acute distress. Vital signs reveal blood pressure 147/73, heart rate 91, respirations 16, temperature is 98.8. He is 93% O2 saturation on room air. His head is normocephalic. Sclerae are nonicteric. His neck is supple. Trachea midline. His lungs are clear anteriorly. There are some faint crackles in the left posterior base. His heart is regular, S1, S2. His abdomen is soft, nontender. Bowel sounds are present. There is no significant peripheral edema. No clubbing. No cyanosis. Peripheral pulses are intact. INVESTIGATIONS: Chest x-ray does reveal evidence of a left lower lobe atelectasis. Lab results reveal WBC 7.0, hemoglobin 12.7, platelet count 257,000. Sodium 139, potassium 4.1, chloride 105, CO2 of 24, BUN 15, creatinine is 1.34. His medications are reviewed. IMPRESSION: 1. Atypical left-sided chest pain. 2. Atelectasis of the left lung base, possible tracheobronchitis. 3. History of coronary artery disease with previous stent placement. 4. Hyperlipidemia. 5. Hypertension. 6. Diabetes mellitus. 7. Obesity. 8. History of prostate cancer. PLAN: The patient was seen and evaluated by Dr. Maldonado. His chest x-ray and labs were reviewed. We doubt there is any significant pneumonia but would keep Levaquin empirically until he has completed the course. Otherwise, he could be discharged home from the pulmonary standpoint. He could follow up in our office in 1 to 2 weeks' time and we can repeat a chest x-ray then. He and his are both encouraged to call sooner with any recurrence of symptoms or other questions or concerns.
--- NOTE | 2016-10-10 06:52 | DS ---
DATE OF ADMISSION: 10/04/2016 DATE OF DISCHARGE: 10/06/2016 DISCHARGE DIAGNOSES: 1. Atypical chest pain, rule out acute coronary syndrome, most likely musculoskeletal origin. Cardiology recommended no further workup. 2. Left lower lobe pneumonia. Started on antibiotics. 3. Chronic kidney disease stage III. 4. Diabetes mellitus type 2, insulin dependent. Hemoglobin A1c 7.8. 5. Elevated AST, ALT, alkaline phosphatase secondary to fatty liver. 6. Cholelithiasis without evidence of cholecystitis. 7. Coronary artery disease history with cardiac catheterization, stent placement. 8. History of cerebrovascular accident. No residual weakness. 9. Hypertension. 10. Hyperlipidemia. 11. Chronic back pain. 12. History of prostate cancer. 13. Nicotine dependence history. HOSPITAL COURSE: Mr. Paez is a 65-year-old male with known medical history of multiple medical problems and comorbid conditions who follows with Dr. Cedric Gold as an outpatient was admitted to the hospital with complaints of left sternal chest pain and he woke up in the middle of the night with a sharp pain, which is different from previous heart attacks. Patient denied any associated nausea, vomiting and chest x-ray showed left lower lobe atelectasis and pneumonia. The patient was started on antibiotics. Patient was seen by Cardiology and recommended pulmonary consultation as well and follow on treatment for possible pneumonia. The patient has ( ), ( ). Ultrasound of the abdomen showed hepatic steatosis and cholelithiasis without evidence of acute cholecystitis. Troponin x3 are negative. Cardiology recommended no further workup. Otherwise, the patient's symptoms improved. Patient will be discharged home to complete the antibiotic course. Chest pain is resolved now. Otherwise, patient was advised to follow with Pulmonary as an outpatient. Patient is stable for discharge home. DISCHARGE PHYSICAL EXAMINATION: A 65-year-old male lying on the bed, comfortable, awake, alert and oriented x3. Appears to be in no apparently distress. VITALS: Blood pressure is 131/67, pulse 105, respirations 18, temperature afebrile, pulse ox 93% on room air. LABORATORY DATA: Reviewed. Discharge physical examination done. Discharge medications include: 1. Aspirin 81 mg p.o. daily. 2. [place] 3 fatty acid 1 capsule p.o. daily. 3. Atorvastatin 40 mg p.o. at bedtime. 4. Imdur 30 mg p.o. daily. 5. Cozaar 50 mg p.o. daily. 6. Metoprolol 25 mg p.o. daily. 7. Nitroglycerin sublingual tablet 0.4 mg sublingually q.5 minutes p.r.n. for chest pain. 8. Prasugrel 10 mg p.o. daily. 9. Gabapentin 800 mg p.o. b.i.d. 10. Insulin Lispro Humalog pump. 11. Levofloxacin 750 mg p.o. q.24 hours, 5 more tablets. Activity as tolerated. Heart healthy diet and diabetic diet. Follow with Dr. Cedric Gold in 1 to 2 days. Home with self care. Time taken more than 35 minutes including 18 minutes counseling the patient and coordinating care.
== END 2016-10-06 15:40 | disposition home or self-care (01) ==
LOC: EC 09:12 → 3OBS 10:50
PROVIDERS: ADMIT Family Medicine; ATTEND Family Medicine
DX: R07.89 Other chest pain (principal); J18.9 Pneumonia, unspecified organism; I12.9 Hypertensive chronic kidney disease with stage 1 through stage 4 chronic kidney disease, or unspecified chronic kidney disease; E11.22 Type 2 diabetes mellitus with diabetic chronic kidney disease; N18.3 Chronic kidney disease, stage 3 (moderate); K80.20 Calculus of gallbladder without cholecystitis without obstruction; K76.0 Fatty (change of) liver, not elsewhere classified; I25.10 Atherosclerotic heart disease of native coronary artery without angina pectoris; E78.5 Hyperlipidemia, unspecified; G89.29 Other chronic pain; M54.9 Dorsalgia, unspecified; E66.9 Obesity, unspecified; Z68.35 Body mass index [BMI] 35.0-35.9, adult; I25.2 Old myocardial infarction; M19.90 Unspecified osteoarthritis, unspecified site; E11.40 Type 2 diabetes mellitus with diabetic neuropathy, unspecified; Z79.82 Long term (current) use of aspirin; Z79.4 Long term (current) use of insulin; Z79.899 Other long term (current) drug therapy; Z85.46 Personal history of malignant neoplasm of prostate; Z95.5 Presence of coronary angioplasty implant and graft; Z87.891 Personal history of nicotine dependence; Z96.41 Presence of insulin pump (external) (internal); Z86.73 Personal history of transient ischemic attack (TIA), and cerebral infarction without residual deficits
CPT/HCPCS: 99285; 96376; 36415; 93005; 80061; 80053 ×2; 83036; 82550; 82553; 83735; 84484; 85025 ×2; 85049; 85610; 85730 ×2; 86140; 87040; 87502; 71020; 76705; G0378 ×3; J1644 ×3; J1956; 96365; 96366; 96367

== ENCOUNTER → 2016-11-20 | Outpatient (CLI) | payer MEDICARE, OTHER ==
[2016-11-20 13:52] LABS: Anion Gap 9 mmol/L; Blood Urea Nitrogen 17 mg/dL (9-20); Calcium 9.9 mg/dL (8.4-10.2); Carbon Dioxide 29 mmol/L (22-30); Chloride 102 mmol/L (98-107); Glucose 175 mg/dL (74-99); Non-African American GFR(MDRD) 53 (>60 ml/min/1.73 sqM); Potassium 4.9 mmol/L (3.5-5.1); Sodium 140 mmol/L (137-145)
== END | disposition home or self-care (01) ==
LOC: LABWHC1 13:05
PROVIDERS: ATTEND Nurse Practitioner Family
DX: N18.3 Chronic kidney disease, stage 3 (moderate) (principal)
CPT/HCPCS: 36415; 80048

== ENCOUNTER → 2017-02-13 | Outpatient (CLI) | payer MEDICARE, OTHER ==
[2017-02-13 12:18] LABS: CH 29.5; CHCM 35.3; HCT 38.9 % (39.0-53.0); HDW 3.33; MCH 30.3 pg (25.0-35.0); MCHC 36.1 g/dL (31.0-37.0); MCV 83.8 fL (80.0-100.0); RBC 4.64 m/uL (4.30-5.90); RDW 14.5 % (11.5-15.5); WBC 4.9 k/uL (3.8-10.6)
[2017-02-13 12:35] LABS: Hemoglobin A1C 7.7 % (4.2-6.1)
[2017-02-13 12:53] LABS: Anion Gap 10 mmol/L; Blood Urea Nitrogen 18 mg/dL (9-20); Calcium 9.6 mg/dL (8.4-10.2); Carbon Dioxide 27 mmol/L (22-30); Chloride 104 mmol/L (98-107); Cholesterol 164 mg/dL (<200); Glucose 107 mg/dL (74-99); HDL Cholesterol 30 mg/dL (40-60); Iron 78 ug/dL (49-181); Magnesium 1.7 mg/dL (1.6-2.3); Non-African American GFR(MDRD) 51 (>60 ml/min/1.73 sqM); Phosphorous 3.4 mg/dL (2.5-4.5); Potassium 4.5 mmol/L (3.5-5.1); Sodium 141 mmol/L (137-145); Uric Acid 7.3 mg/dL (3.5-8.5)
[2017-02-13 13:05] LABS: % Iron Saturation 26.2 % (20-50); Total Iron Binding Capacity 298 ug/dL (261-462)
[2017-02-13 13:14] LABS: Appearance,Urine Clear (Clear); Bilirubin,Urine Negative (Negative); Glucose,Urine (UA) Negative (Negative); Ketones,Urine Negative (Negative); Leukocyte Esterase,Urine Negative (Negative); Nitrite,Urine Negative (Negative); PH, Urine 6.5 (5.0-8.0); Protein,Urine Negative (Negative); Specific Gravity,Urine 1.016 (1.001-1.035); UA Billing (MACRO vs. MICRO) CHEM
[2017-02-13 13:20] LABS: Prostate Specific Antigen 0.34 ng/mL (0.00-4.00)
[2017-02-13 17:30] LABS: Urine Creatinine 158.1 mg/dL
== END | disposition home or self-care (01) ==
LOC: LABWHC1 11:40
PROVIDERS: ATTEND Nurse Practitioner Family
DX: C61 Malignant neoplasm of prostate (principal); E11.9 Type 2 diabetes mellitus without complications; I10 Essential (primary) hypertension; N39.0 Urinary tract infection, site not specified; R80.9 Proteinuria, unspecified; D63.1 Anemia in chronic kidney disease; E21.3 Hyperparathyroidism, unspecified; E55.9 Vitamin D deficiency, unspecified; M10.9 Gout, unspecified; N18.3 Chronic kidney disease, stage 3 (moderate)
CPT/HCPCS: 36415; 80048; 80061; 81003; 82043; 82306; 82570; 82728; 83036; 83540; 83550; 83735; 83970; 84100; 84153; 84550; 85027

== ENCOUNTER → 2017-03-05 | Outpatient (CLI) | payer MEDICARE, OTHER ==
--- NOTE | 2017-03-05 15:13 | US ---
EXAMINATION TYPE: US kidneys/renal and bladder DATE OF EXAM: 03/05/2017 COMPARISON: US CLINICAL HISTORY: N18.3 Chronic Kidney Disease Stage 3. EXAM MEASUREMENTS: Right Kidney: 12.0 x 5.1 x 5.0 cm Left Kidney: 11.6 x 5.2 x 4.5 cm Right Kidney: No hydronephrosis or masses seen Left Kidney: No hydronephrosis or masses seen Bladder: wnl Bilateral Jets seen: yes There is no evidence for hydronephrosis at this point in time. No nephrolithiasis is seen. No anastasia s are identified. The urinary bladder is anechoic. Bilateral ureteral jets are seen. IMPRESSION: No distinct abnormality seen.
== END | disposition home or self-care (01) ==
LOC: RADUSWWP 14:40
PROVIDERS: ATTEND Internal Medicine Nephrology
DX: N18.3 Chronic kidney disease, stage 3 (moderate) (principal)
CPT/HCPCS: 76770

== ENCOUNTER 2017-03-14 10:31 | Observation (INO) | payer MEDICARE, OTHER ==
--- NOTE | 2017-03-14 10:51 | ED ---
General Adult HPI - General Chief complaint: Syncope Stated complaint: Hypoglycemia Time Seen by Provider: 03/14/17 10:40 Source: patient, family, EMS, RN notes reviewed Mode of arrival: EMS Limitations: no limitations - History of Present Illness Initial comments: Patient is a pleasant 66-year-old male presenting to the emergency department after an unresponsive episode. Patient was at a neurologist office. Patient sat in the chair and started becoming drowsy. Patient then became unresponsive for a minute or 2. Blood sugar was checked at 52. EMS provided some glucose tablets followed by half amp of D50. Blood sugar did improve. Patient does not recall the episode well. Patient states he feels fine at this point with no complaints. No head injury. No chest pain or dyspnea. Patient does have an insulin pump however is unclear how to turn off the pump. - Related Data Home Medications Medication Instructions Recorded Confirmed Aspirin 81 mg PO DAILY 01/12/15 03/14/17 [place]-3 Acid Ethyl Esters [Lovaza] 1 cap PO DAILY 01/12/15 03/14/17 Gabapentin 400 mg PO BID 04/18/16 03/14/17 INSULIN LISPRO (For Pump) [humaLOG 0.01 units SQ-PUMP CONTINUOUS 04/18/16 (For Pump)] Ergocalciferol (Vitamin D2) 50,000 unit PO MO 03/14/17 03/14/17 [Vitamin D2] HYDROcodone/APAP 7.5-325MG [[place] 1 tab PO Q6HR PRN 03/14/17 03/14/17 7.5-325] Primidone [Mysoline] 150 mg PO HS 03/14/17 03/14/17 rOPINIRole HCL [Requip] 1 mg PO TID 03/14/17 03/14/17 Previous Rx's Medication Instructions Recorded Atorvastatin [Lipitor] 40 mg PO HS #30 tab 01/17/15 Isosorbide Mononitrate ER [Imdur] 30 mg PO DAILY #30 tab.er.24h 01/17/15 Losartan [Cozaar] 50 mg PO DAILY #30 tab 01/17/15 Metoprolol Tartrate [Lopressor] 25 mg PO DAILY #30 tab 01/17/15 Nitroglycerin Sl Tabs [Nitrostat] 0.4 mg SUBLINGUAL Q5M PRN #25 tab 01/17/15 Prasugrel [Effient] 10 mg PO DAILY #30 tab 01/17/15 Allergies Allergy/AdvReac Type Severity Reaction Status Date / Time No Known Allergies Allergy Verified 03/14/17 11:48 Review of Systems ROS Statement: Those systems with pertinent positive or pertinent negative responses have been documented in the HPI. ROS Other: All systems not noted in ROS Statement are negative. Constitutional: Denies: fever Eyes: Denies: eye pain ENT: Denies: ear pain Respiratory: Denies: cough Cardiovascular: Denies: chest pain Endocrine: Denies: fatigue Gastrointestinal: Denies: abdominal pain Genitourinary: Denies: dysuria Musculoskeletal: Denies: back pain Skin: Denies: rash Neurological: Denies: weakness Past Medical History Past Medical History: Coronary Artery Disease (CAD), Cancer, Chest Pain / Angina , CVA/TIA, Diabetes Mellitus, Hyperlipidemia, Hypertension, Myocardial Infarction (GA), Osteoarthritis (OA), Pneumonia Additional Past Medical History / Comment(s): neuropathy, prostate CA-(GOLD IMPLANTS for prostate CA) ,PSORIASES,KIDNEY STONES, FX VERTEBRE(L3-L4-L5-S1)HAS CHRONIC BACK PAIN...1 stent in 2010 and 3 stents in 2014...stroke April 18, 2016 Last Myocardial Infarction Date:: 2010 History of Any Multi-Drug Resistant Organisms: None Reported Past Surgical History: Heart Catheterization With Stent Additional Past Surgical History / Comment(s): COLONOCOSPY, LUMBAR EPIDURAL INJ , STRESS TEST FEW MONTHS AGO-WNL, total 4 cardiac stents (2010 1 stent and 2014 3 stents),juventino cataracts Past Anesthesia/Blood Transfusion Reactions: No Reported Reaction Additional Past Anesthesia/Blood Transfusion Reaction / Comment(s): CLAUSTERPHOBIC Date of Last Stent Placement:: 2010 Past Psychological History: No Psychological Hx Reported Smoking Status: Former smoker Past Alcohol Use History: None Reported Past Drug Use History: None Reported - Past Family History Father Family Medical History: Cancer Additional Family Medical History / Comment(s): BLADDER CANCER Mother Family Medical History: Cancer Additional Family Medical History / Comment(s): UTERINE CANCER General Exam Limitations: no limitations General appearance: alert, in no apparent distress Head exam: Present: atraumatic, normocephalic Eye exam: Present: normal appearance, PERRL, EOMI. Absent: nystagmus ENT exam: Present: normal oropharynx Neck exam: Present: normal inspection Respiratory exam: Present: normal lung sounds bilaterally Cardiovascular Exam: Present: regular rate, normal rhythm GI/Abdominal exam: Present: soft. Absent: tenderness Extremities exam: Present: normal inspection, full ROM Neurological exam: Present: alert, CN II-XII intact. Absent: motor sensory deficit Expanded Patient oriented to: Present: person, place. Absent: time ( states normal response for patient.) Speech: Present: fluid speech Cranial nerves: EOM's Intact: Normal, Facial Sensation: Normal Sensory exam: Upper Extremity Light Touch: Normal, Lower Extremity Light Touch: Normal Motor strength exam: RUE: 5, LUE: 5, RLE: 5, LLE: 5 Psychiatric exam: Present: normal affect, normal mood Skin exam: Present: normal color Course Vital Signs 03/14/17 10:33 Temperature 96.9 F L Pulse Rate 55 L Respiratory 16 Rate Blood Pressure 107/55 O2 Sat by Pulse 97 Oximetry - Reevaluation(s) Reevaluation #1: 03/14/17 11:40 Previous EKG reviewed dated October 052016. 03/14/17 11:42 Patient is turned complain of a mild headache. Family is concerned the patient has had some repetitive questioning regarding the episode. EKG Findings - EKG Comments: EKG Findings:: Sinus bradycardia 55. [place] 196. QRS 88. QT 4:30. QTC 411. Left axis. Inferior Q waves with T wave inversion. Medical Decision Making - Medical Decision Making Patient reexamined and resting comfortably in bed. Case was discussed in detail with Dr. Gold, who will admit his patient. Cardiac enzymes will be rechecked. He does request neurology evaluation. Patient has previously seen Dr. Alford. - Lab Data Result diagrams: 03/14/17 10:53 03/14/17 10:53 Lab Results 03/14/17 03/14/17 03/14/17 Range/Units 10:37 10:53 10:53 WBC 5.3 (3.8-10.6) k/uL RBC 4.86 (4.30-5.90) m/uL Hgb 14.5 (13.0-17.5) gm/dL Hct 42.3 (39.0-53.0) % MCV 86.9 (80.0-100.0) fL MCH 29.7 (25.0-35.0) pg MCHC 34.2 (31.0-37.0) g/dL RDW 14.5 (11.5-15.5) % Plt Count 212 (150-450) k/uL Neutrophils % 77 % Lymphocytes % 12 % Monocytes % 7 % Eosinophils % 2 % Basophils % 1 % Neutrophils # 4.1 (1.3-7.7) k/uL Lymphocytes # 0.6 L (1.0-4.8) k/uL Monocytes # 0.4 (0-1.0) k/uL Eosinophils # 0.1 (0-0.7) k/uL Basophils # 0.0 (0-0.2) k/uL PT (9.0-12.0) sec INR (<1.2) APTT (22.0-30.0) sec Sodium (137-145) mmol/L Potassium (3.5-5.1) mmol/L Chloride (98-107) mmol/L Carbon Dioxide (22-30) mmol/L Anion Gap mmol/L BUN (9-20) mg/dL Creatinine (0.66-1.25) mg/dL Est GFR (MDRD) Af Amer (>60 ml/min/1.73 sqM) Est GFR (MDRD) Non-Af (>60 ml/min/1.73 sqM) Glucose (74-99) mg/dL POC Glucose (mg/dL) 140 H (75-99) mg/dL POC Glu [facility] ID Anne Mcgill Calcium (8.4-10.2) mg/dL Total Bilirubin (0.2-1.3) mg/dL AST (17-59) U/L ALT (21-72) U/L Alkaline Phosphatase (38-126) U/L Total Creatine Kinase 53 L (55-170) U/L CK-MB (CK-2) 0.8 (0.0-2.4) ng/mL CK-MB (CK-2) Rel Index 1.5 Troponin I 0.075 H* (0.000-0.034) ng/mL Total Protein (6.3-8.2) g/dL Albumin (3.5-5.0) g/dL 03/14/17 03/14/17 03/14/17 Range/Units 10:53 10:53 11:20 WBC (3.8-10.6) k/uL RBC (4.30-5.90) m/uL Hgb (13.0-17.5) gm/dL Hct (39.0-53.0) % MCV (80.0-100.0) fL MCH (25.0-35.0) pg MCHC (31.0-37.0) g/dL RDW (11.5-15.5) % Plt Count (150-450) k/uL Neutrophils % % Lymphocytes % % Monocytes % % Eosinophils % % Basophils % % Neutrophils # (1.3-7.7) k/uL Lymphocytes # (1.0-4.8) k/uL Monocytes # (0-1.0) k/uL Eosinophils # (0-0.7) k/uL Basophils # (0-0.2) k/uL PT 10.2 (9.0-12.0) sec INR 1.0 (<1.2) APTT 21.5 L (22.0-30.0) sec Sodium 140 (137-145) mmol/L Potassium 3.9 (3.5-5.1) mmol/L Chloride 107 (98-107) mmol/L Carbon Dioxide 24 (22-30) mmol/L Anion Gap 9 mmol/L BUN 14 (9-20) mg/dL Creatinine 1.29 H (0.66-1.25) mg/dL Est GFR (MDRD) Af Amer >60 (>60 ml/min/1.73 sqM) Est GFR (MDRD) Non-Af 56 (>60 ml/min/1.73 sqM) Glucose 114 H (74-99) mg/dL POC Glucose (mg/dL) 123 H (75-99) mg/dL POC Glu [facility] ID PetitprenAlexaNataly Calcium 9.0 (8.4-10.2) mg/dL Total Bilirubin 0.6 (0.2-1.3) mg/dL AST 20 (17-59) U/L ALT 35 (21-72) U/L Alkaline Phosphatase 94 (38-126) U/L Total Creatine Kinase (55-170) U/L CK-MB (CK-2) (0.0-2.4) ng/mL CK-MB (CK-2) Rel Index Troponin I (0.000-0.034) ng/mL Total Protein 6.0 L (6.3-8.2) g/dL Albumin 3.6 (3.5-5.0) g/dL 03/14/17 Range/Units 12:13 WBC (3.8-10.6) k/uL RBC (4.30-5.90) m/uL Hgb (13.0-17.5) gm/dL Hct (39.0-53.0) % MCV (80.0-100.0) fL MCH (25.0-35.0) pg MCHC (31.0-37.0) g/dL RDW (11.5-15.5) % Plt Count (150-450) k/uL Neutrophils % % Lymphocytes % % Monocytes % % Eosinophils % % Basophils % % Neutrophils # (1.3-7.7) k/uL Lymphocytes # (1.0-4.8) k/uL Monocytes # (0-1.0) k/uL Eosinophils # (0-0.7) k/uL Basophils # (0-0.2) k/uL PT (9.0-12.0) sec INR (<1.2) APTT (22.0-30.0) sec Sodium (137-145) mmol/L Potassium (3.5-5.1) mmol/L Chloride (98-107) mmol/L Carbon Dioxide (22-30) mmol/L Anion Gap mmol/L BUN (9-20) mg/dL Creatinine (0.66-1.25) mg/dL Est GFR (MDRD) Af Amer (>60 ml/min/1.73 sqM) Est GFR (MDRD) Non-Af (>60 ml/min/1.73 sqM) Glucose (74-99) mg/dL POC Glucose (mg/dL) 128 H (75-99) mg/dL POC Glu [facility] ID PadmajaAnne sosa Calcium (8.4-10.2) mg/dL Total Bilirubin (0.2-1.3) mg/dL AST (17-59) U/L ALT (21-72) U/L Alkaline Phosphatase (38-126) U/L Total Creatine Kinase (55-170) U/L CK-MB (CK-2) (0.0-2.4) ng/mL CK-MB (CK-2) Rel Index Troponin I (0.000-0.034) ng/mL Total Protein (6.3-8.2) g/dL Albumin (3.5-5.0) g/dL - Radiology Data Radiology results: report reviewed (Computed tomography scan of the brain shows no acute abnormality. Stable ventriculomegaly.), image reviewed (Interstitial changes, likely chronic. Likely atelectasis.) Disposition Clinical Impression: Syncope Disposition: ADMITTED IP TO THIS [facility] Referrals: Cedric Gold DO [Primary Care Provider] - 1-2 days Decision Time: 12:25
[2017-03-14 11:03] LABS: Glucose,Whole Blood 140 mg/dL (75-99)
[2017-03-14 11:05] LABS: Basophils % (A) 1 %; CH 29.9; CHCM 34.5; Eosinophils # (A) 0.1 k/uL (0-0.7); Eosinophils % (A) 2 %; HCT 42.3 % (39.0-53.0); HDW 3.24; HGB 14.5 gm/dL (13.0-17.5); Luc # (Auto) 0.13; Luc % (Auto) 2; Lymphocytes # (A) 0.6 k/uL (1.0-4.8); Lymphocytes % (A) 12 %; MCH 29.7 pg (25.0-35.0); MCHC 34.2 g/dL (31.0-37.0); MCV 86.9 fL (80.0-100.0); Mean Platelet Volume 6.9; Monocytes # (A) 0.4 k/uL (0-1.0); Monocytes % (A) 7 %; Neutrophils # (A) 4.1 k/uL (1.3-7.7); Neutrophils % (A) 77 %; RBC 4.86 m/uL (4.30-5.90); RDW 14.5 % (11.5-15.5); WBC 5.3 k/uL (3.8-10.6); WBC (Perox) 5.67
[2017-03-14 11:18] LABS: AST 20 U/L (17-59); Alkaline Phosphatase 94 U/L (38-126); Anion Gap 9 mmol/L; Blood Urea Nitrogen 14 mg/dL (9-20); Carbon Dioxide 24 mmol/L (22-30); Chloride 107 mmol/L (98-107); Glucose 114 mg/dL (74-99); Non-African American GFR(MDRD) 56 (>60 ml/min/1.73 sqM); Potassium 3.9 mmol/L (3.5-5.1); Sodium 140 mmol/L (137-145); Total Bilirubin 0.6 mg/dL (0.2-1.3)
[2017-03-14 11:20] LABS: Prothrombin Time 10.2 sec (9.0-12.0)
[2017-03-14 11:23] LABS: Partial Thromboplastin Time 21.5 sec (22.0-30.0)
[2017-03-14 11:23] LABS: Glucose,Whole Blood 123 mg/dL (75-99)
--- NOTE | 2017-03-14 11:25 | XR ---
EXAMINATION TYPE: XR chest 2V DATE OF EXAM: 03/14/2017 COMPARISON: 10/04/2016 HISTORY: 66-year-old male with syncope today TECHNIQUE: AP and lateral views FINDINGS: Heart is upper limits of normal in size. Diffuse interstitial prominence has a chronic appearance. St noé atelectasis at the posterior base on the lateral view. No sneha consolidation or significant pl eural effusion. IMPRESSION: Interstitial changes appear largely chronic, possible bronchitis or chronic asthma. Opacity at the po sterior base has a strandy appearance suggesting atelectasis rather than infiltrate. Clinically corre late.
[2017-03-14 11:35] LABS: ALT 35 U/L (21-72)
[2017-03-14 11:39] LABS: Creatine Kinase MB 0.8 ng/mL (0.0-2.4)
[2017-03-14 11:42] LABS: Troponin I 0.075 ng/mL (0.000-0.034)
--- NOTE | 2017-03-14 12:13 | CT ---
EXAMINATION TYPE: CT brain wo con DATE OF EXAM: 03/14/2017 COMPARISON: 04-18-16 HISTORY: Patient poor historian. Patient does not remember event. Patient had syncopal episode with assist to floor. Patient is repetitive. CT DLP: 867.7 mGycm. Automated Exposure Control for Dose Reduction was Utilized. TECHNIQUE: CT scan of the head is performed without contrast. FINDINGS: There is no acute intracranial hemorrhage, mass effect, or midline shift identified. The ventricles are prominent, compatible with age-related atrophy as there is overall proportionate sulc al and prominence. Slight asymmetry of the temporal horns is unchanged from the prior. No transependy mal edema. The globes are intact and the visualized sinuses are clear. Atherosclerosis is seen of th e intracranial vasculature. Fluid is again seen within the right mastoid air cells and to a lesser de gree within the left mastoid air cells. Cerumen is seen impacted within the left external auditory ca nal. IMPRESSION: 1. No acute intracranial hemorrhage, mass effect, or midline shift is seen. 2. Stable ventriculomegaly is thought to relate to cerebral atrophy as there is no transependymal chace ma and proportionate sulcal prominence. 3. Persistent right and new left mastoid air cell fluid. Again clinical correlation is recommended to evaluate for otomastoiditis. Left external auditory canal cerumen impaction is incidentally noted.
[2017-03-14 12:15] LABS: Glucose,Whole Blood 128 mg/dL (75-99)
[2017-03-14] MEDS ORDERED: NALOXONE 0.4 MG/ML 1 ML VIAL IV PRN (12:26)
[2017-03-14] MEDS: SODIUM CHLORIDE 0.9% 1,000 ML IV SCH (13:13)
[2017-03-14 13:42] LABS: Appearance,Urine Clear (Clear); Bilirubin,Urine Negative (Negative); Glucose,Urine (UA) Trace (Negative); Ketones,Urine Negative (Negative); Leukocyte Esterase,Urine Negative (Negative); Nitrite,Urine Negative (Negative); PH, Urine 5.5 (5.0-8.0); Protein,Urine Trace (Negative); Specific Gravity,Urine 1.019 (1.001-1.035); UA Billing (MACRO vs. MICRO) CHEM
[2017-03-14] MEDS ORDERED: HYDROcodone/APAP 7.5-325MG 1 EACH TAB PO PRN (17:50)
[2017-03-14 17:54] LABS: Glucose,Whole Blood 220 mg/dL (75-99)
[2017-03-14] MEDS ORDERED: INSULIN LISPRO (For Pump) 100 UNIT/ML VIAL SQ-PUMP SCH (18:00)
[2017-03-14 18:22] LABS: Creatine Kinase MB 0.8 ng/mL (0.0-2.4)
[2017-03-14 18:24] LABS: Troponin I 0.056 ng/mL (0.000-0.034)
[2017-03-14] MEDS ORDERED: INSULIN LISPRO (humaLOG) 300 UNIT/3 ML VIAL SQ ONE (18:34)
[2017-03-14] MEDS: GABAPENTIN 400 MG CAP PO SCH (20:44)
[2017-03-14 21:00] LABS: Glucose,Whole Blood 177 mg/dL (75-99)
[2017-03-14] MEDS ORDERED: ATORVASTATIN 40 MG TAB PO SCH (21:00)
[2017-03-14] MEDS ORDERED: PRIMIDONE 50 MG TAB PO SCH (21:00)
[2017-03-14] MEDS: INSULIN LISPRO (humaLOG) 300 UNIT/3 ML VIAL SQ SCH (21:57)
[2017-03-14 23:37] LABS: Creatine Kinase MB 0.7 ng/mL (0.0-2.4)
[2017-03-14 23:46] LABS: Troponin I 0.056 ng/mL (0.000-0.034)
[2017-03-15 06:05] LABS: Glucose,Whole Blood 155 mg/dL (75-99)
[2017-03-15] MEDS: INSULIN LISPRO (humaLOG) 300 UNIT/3 ML VIAL SQ SCH ×3 (06:24→17:19)
--- NOTE | 2017-03-15 06:29 | CONS ---
CONSULTATION DATE OF CONSULTATION: 03/14/2017 CHIEF COMPLAINT: Syncope. HISTORY OF PRESENT ILLNESS: Mr. Paez is a pleasant 66-year-old, male, who is being evaluated by the neurology service per the request of Dr. Cedric Gold for a syncopal spell. The patient was at my clinic earlier this morning being seen for a followup visit for his history of transient ischemic attacks and tremors. While in the waiting room, he developed a subacute onset of drowsiness and then he lost consciousness. The patient was laid on the ground and EMS was called. The patient regained consciousness after approximately 1 minute and was somewhat clammy. When EMS arrived, his Accu-Chek was in the low 50s. He was given D 50, but his Accu-Chek remained in the low 50s. The patient does have history of diabetes and has an insulin pump. He was transferred to the emergency room for further workup and management. A CT scan of the brain was done, which showed generalized atrophy and stable ventriculomegaly. His CBC and urinalysis were normal. His comprehensive metabolic profile showed slightly elevated creatinine at 1.29 and mild hyperglycemia at 140. His insulin pump has been disconnected and he is currently on sliding scale insulin on this admission. At the time of my evaluation, he is lying in his bed and appears to be in no acute distress. He is back to his baseline. PAST MEDICAL HISTORY: Diabetes, dyslipidemia, history of transient ischemic attacks, benign tremors, coronary artery disease, angina, hypertension, arthritis, history of , neuropathy, history of prostate cancer, nephrolithiasis, history of lumbar spine vertebral fractures with chronic low back pain, history of coronary artery stent placement, history of ischemic stroke. SOCIAL HISTORY: The patient is a former smoker. Denies any alcohol or drug use. FAMILY HISTORY: Positive for cancer. HOME MEDICATIONS: Reviewed in the chart. ALLERGIES: No known drug allergies. REVIEW OF SYSTEMS: As mentioned above and otherwise negative. PHYSICAL EXAM: Vital signs show a temperature of 97.3, pulse 69, respirations 16, blood pressure 133/72. GENERAL APPEARANCE: The patient is a mildly obese male, who appears to be in no acute distress. HEENT: Normocephalic, atraumatic, no facial asymmetry is seen. NECK: Supple with no masses felt. CARDIOVASCULAR: Regular rate and rhythm. ABDOMEN: Obese, nontender, nondistended. Extremities showed trace edema with no clubbing seen. Neurological exam the patient is alert aware and oriented x3. Speech and language are normal. No lateralizing weakness is seen. Mild postural tremors are noticed. Sensory exam was normal to light touch in all 4 extremities. No facial asymmetry seen on cranial nerve testing. IMPRESSION: 1. Syncopal spell. 2. Hypoglycemic episode. 3. History of ischemic stroke. 4. Benign familial tremors. RECOMMENDATION: The patient's syncopal episode was due to his hypoglycemic event. The patient is back to his baseline. His CT scan of the brain was reviewed and showed no acute abnormalities. I do recommend adjustment to his insulin pump. No further inpatient neurological workup is needed. I will sign off. If you have any further questions, please feel free to contact me. Thank you for allowing me to participate in the care of your patient. If you have any questions, please feel free to contact me. [place] / [place]: [phone] /
[2017-03-15 06:46] LABS: CH 30.8; CHCM 35.4; HCT 40.7 % (39.0-53.0); HDW 3.12; HGB 13.5 gm/dL (13.0-17.5); MCHC 33.2 g/dL (31.0-37.0); MCV 87.5 fL (80.0-100.0); Mean Platelet Volume 7.8; RBC 4.65 m/uL (4.30-5.90); RDW 15.5 % (11.5-15.5); WBC 5.1 k/uL (3.8-10.6)
[2017-03-15 07:00] LABS: Calcium 9.2 mg/dL (8.4-10.2); Potassium 4.5 mmol/L (3.5-5.1)
[2017-03-15] MEDS ORDERED: PANTOPRAZOLE 40 MG TABLET PO SCH (07:30)
[2017-03-15 08:01] LABS: Hemoglobin A1C 6.8 % (4.2-6.1)
--- NOTE | 2017-03-15 08:47 | P.HPIM ---
History of Present Illness H&P Date: 03/15/17 Chief Complaint: Syncope 66-year-old male who presented to the emergency room on 03/14/2017 for syncope. The patient was at his neurologist office for a follow-up appointment for TIA and was sitting in the waiting room. He began to get drowsy and then went unresponsive. EMS was called. His blood sugar was found to be 52. He was given glucose tablets and an amp of D50 and was transferred to the emergency room for evaluation. The patient has a history of coronary artery disease, CVA/TIA, diabetes mellitus with an insulin pump, hyperlipidemia, hypertension, myocardial infarction, osteoarthritis and pneumonia. The patient states he had his insulin pump on yesterday and was unsure how to turn it off. He does not remember if he ate breakfast in the morning or not. His usual blood sugars at home run over 100 and the patient has not had an episode of hypoglycemia this low. In the emergency room a CT of the brain was completed which did not reveal any acute intracranial hemorrhage, mass effect or midline shift. It did show stable ventriculomegaly. A chest x-ray was completed which showed interstitial changes, mostly chronic, with possible bronchitis or chronic asthma. His vital signs have remained stable. The patient is back to his baseline neurological status. He was admitted to the hospital under the care of Dr. Gold. Dr. Alford, neurology, was consulted. He believes his episode of unresponsiveness was due to hypoglycemia and no further intervention is needed. The patient was seen and examined this morning in rounds with Dr. Gold. His insulin pump is currently off and he is utilizing the [facility] sliding scale protocol for insulin. He states he is feeling well and denies any complaints or concerns. He does not remember the events that took place yesterday at the doctor's office and does not remember if he breakfast in the morning. He denies chest pain or pressure. He denies shortness of breath. He maintaining oxygen saturation greater than 95% room air. He is afebrile. His vital signs have been stable. Review of Systems Those systems with pertinent negative or pertinent positive responses have been documented in the HPI. Past Medical History Past Medical History: Coronary Artery Disease (CAD), Cancer, Chest Pain / Angina , CVA/TIA, Diabetes Mellitus, Hyperlipidemia, Hypertension, Myocardial Infarction ([place]), Osteoarthritis (OA), Pneumonia, Renal Disease, Skin Disorder Additional Past Medical History / Comment(s): IDDM type II-has insulin pump, neuropathy bilateral legs, prostate cancer with gold seeds implanted, CVA with R arm/R leg weakness, chronic low back pain, fx vertebrae L3,4,5 and S1 , nephrolithiasis, Chronic renal disease stage III, psoriasis, mild memory problems but much worse after today's event per family at bedside. Last Myocardial Infarction Date:: 2014 History of Any Multi-Drug Resistant Organisms: None Reported Past Surgical History: Heart Catheterization With Stent Additional Past Surgical History / Comment(s): COLONOCOSPY, LUMBAR EPIDURAL INJ , total 4 cardiac stents (2010 1 stent and 2014 3 stents),juventino cataracts/lens implants, colonoscopy, gold seed implants for prostate cancer. Past Anesthesia/Blood Transfusion Reactions: No Reported Reaction Additional Past Anesthesia/Blood Transfusion Reaction / Comment(s): CLAUSTERPHOBIC Date of Last Stent Placement:: 2010 Smoking Status: Former smoker - Past Family History Father Family Medical History: Cancer Additional Family Medical History / Comment(s): FATHER HAD BLADDER CANCER AND OF THIS IN HIS 40'S Mother Family Medical History: Cancer, Dementia Additional Family Medical History / Comment(s): UTERINE CANCER. Mother of dementia at the age of 89yrs. Medications and Allergies Home Medications Medication Instructions Recorded Confirmed Type Aspirin 81 mg PO DAILY 01/12/15 03/14/17 History [place]-3 Acid Ethyl Esters [Lovaza] 1 cap PO DAILY 01/12/15 03/14/17 History Atorvastatin [Lipitor] 40 mg PO HS #30 tab 01/17/15 03/14/17 Rx Isosorbide Mononitrate ER [Imdur] 30 mg PO DAILY #30 tab.er.24h 01/17/15 Rx Losartan [Cozaar] 50 mg PO DAILY #30 tab 01/17/15 03/14/17 Rx Metoprolol Tartrate [Lopressor] 25 mg PO DAILY #30 tab 01/17/15 03/14/17 Rx Nitroglycerin Sl Tabs [Nitrostat] 0.4 mg SUBLINGUAL Q5M PRN #25 tab 01/17/15 Rx Prasugrel [Effient] 10 mg PO DAILY #30 tab 01/17/15 03/14/17 Rx Gabapentin 400 mg PO BID 04/18/16 03/14/17 History INSULIN LISPRO (For Pump) [humaLOG 0.01 units SQ-PUMP CONTINUOUS 04/18/16 History (For Pump)] Ergocalciferol (Vitamin D2) 50,000 unit PO MO 03/14/17 03/14/17 History [Vitamin D2] HYDROcodone/APAP 7.5-325MG [[place] 1 tab PO Q6HR PRN 03/14/17 03/14/17 History 7.5-325] Primidone [Mysoline] 150 mg PO HS 03/14/17 03/14/17 History rOPINIRole HCL [Requip] 1 mg PO TID 03/14/17 03/14/17 History Allergies Allergy/AdvReac Type Severity Reaction Status Date / Time No Known Allergies Allergy Verified 03/14/17 11:48 Physical Exam Vitals: Vital Signs Temp Pulse Pulse Resp BP BP Pulse Ox 03/15/17 04:00 96.8 F L 62 18 126/77 95 03/15/17 00:00 97.2 F L 62 18 122/66 96 03/14/17 20:00 96.9 F L 61 18 136/70 97 03/14/17 16:00 97.3 F L 69 16 133/72 97 03/14/17 13:37 97.8 F 60 18 120/65 99 03/14/17 13:12 98.3 F 59 L 18 114/64 99 03/14/17 12:10 64 19 125/56 98 03/14/17 10:33 96.9 F L 55 L 16 107/55 97 Intake and Output 03/14/17 03/15/17 03/15/17 22:59 06:59 14:59 Intake Total 240 240 240 Balance 240 240 240 Intake: Intake, IV Titration 240 Amount Sodium Chloride 0.9% 1, 240 000 ml @ 20 mls/hr IV . Q24H [facility] Rx#:[id number] Oral 240 240 Other: Voiding Method Toilet Toilet # Voids 2 1 Weight 112.7 kg GENERAL: Alert and oriented. Appears in no acute distress. Pleasant. Obese RESPIRATORY: Lungs clear bilaterally. No use of accessory muscles. Patient maintaining oxygen saturation greater than 92%. CARDIOVASCULAR: Rhythm regular. S1 and S2 noted. No JVD noted. EXTREMITIES: No edema noted. Palpable pedal pulses +2. ABDOMEN: No distention noted. Abdomen soft and round. Normal active bowel sounds auscultated 4 quadrants. No pain or tenderness noted upon palpation. Results CBC & Chem 7: 03/15/17 06:18 03/15/17 06:18 Labs: Abnormal Lab Results - Last 24 Hours (Table) 03/14/17 03/14/17 03/14/17 Range/Units 10:37 10:53 10:53 Lymphocytes # 0.6 L (1.0-4.8) k/uL APTT (22.0-30.0) sec Creatinine (0.66-1.25) mg/dL Glucose (74-99) mg/dL POC Glucose (mg/dL) 140 H (75-99) mg/dL Hemoglobin A1c (4.2-6.1) % Total Creatine Kinase 53 L (55-170) U/L Troponin I 0.075 H* (0.000-0.034) ng/mL Total Protein (6.3-8.2) g/dL Urine Protein (Negative) Urine Glucose (UA) (Negative) 03/14/17 03/14/17 03/14/17 Range/Units 10:53 10:53 11:20 Lymphocytes # (1.0-4.8) k/uL APTT 21.5 L (22.0-30.0) sec Creatinine 1.29 H (0.66-1.25) mg/dL Glucose 114 H (74-99) mg/dL POC Glucose (mg/dL) 123 H (75-99) mg/dL Hemoglobin A1c (4.2-6.1) % Total Creatine Kinase (55-170) U/L Troponin I (0.000-0.034) ng/mL Total Protein 6.0 L (6.3-8.2) g/dL Urine Protein (Negative) Urine Glucose (UA) (Negative) 03/14/17 03/14/17 03/14/17 Range/Units 12:13 13:20 17:32 Lymphocytes # (1.0-4.8) k/uL APTT (22.0-30.0) sec Creatinine (0.66-1.25) mg/dL Glucose (74-99) mg/dL POC Glucose (mg/dL) 128 H (75-99) mg/dL Hemoglobin A1c (4.2-6.1) % Total Creatine Kinase 50 L (55-170) U/L Troponin I 0.056 H* (0.000-0.034) ng/mL Total Protein (6.3-8.2) g/dL Urine Protein Trace H (Negative) Urine Glucose (UA) Trace H (Negative) 03/14/17 03/14/17 03/14/17 Range/Units 17:48 20:58 22:55 Lymphocytes # (1.0-4.8) k/uL APTT (22.0-30.0) sec Creatinine (0.66-1.25) mg/dL Glucose (74-99) mg/dL POC Glucose (mg/dL) 220 H 177 H (75-99) mg/dL Hemoglobin A1c (4.2-6.1) % Total Creatine Kinase 48 L (55-170) U/L Troponin I 0.056 H* (0.000-0.034) ng/mL Total Protein (6.3-8.2) g/dL Urine Protein (Negative) Urine Glucose (UA) (Negative) 03/15/17 03/15/17 03/15/17 Range/Units 06:02 06:18 06:18 Lymphocytes # (1.0-4.8) k/uL APTT (22.0-30.0) sec Creatinine 1.44 H (0.66-1.25) mg/dL Glucose 163 H (74-99) mg/dL POC Glucose (mg/dL) 155 H (75-99) mg/dL Hemoglobin A1c 6.8 H (4.2-6.1) % Total Creatine Kinase (55-170) U/L Troponin I (0.000-0.034) ng/mL Total Protein (6.3-8.2) g/dL Urine Protein (Negative) Urine Glucose (UA) (Negative) Thrombosis Risk Factor Assmnt - Choose All That Apply Any of the Below Risk Factors Present?: Yes Each Factor Represents 1 point: Obesity (BMI >25) Other Risk Factors: Yes Each Risk Factor Represents 2 Points: Age 61-74 years, Malignancy Other congenital or acquired thrombophilia - If yes, enter type in comment: No Thrombosis Risk Factor Assessment Total Risk Factor Score: 5 Thrombosis Risk Factor Assessment Level: High Risk Assessment and Plan Plan: ASSESSMENT: -Syncopal episode, secondary to hypoglycemia -Hypoglycemia, present on admission, likely due to decreased oral intake and infusion of insulin pump. -Diabetes mellitus, type II, insulin-dependent, patient utilizes insulin pump -History of CVA/TIA -History of coronary artery disease with prior stenting -Essential hypertension PLAN: -Neurology on consult. Appreciate recommendations and input -Resume home meds as appropriate -Monitor labs -GI prophylaxis: Protonix 40 mg IV daily -DVT prophylaxis: Heparin 5000 units subcu every 8 hours -Monitor vital signs and address as appropriate -Monitor capillary blood glucose -Continue sliding scale insulin. Continue to hold patient's insulin pump at this time -Anticipate possible discharge later this afternoon. Per Dr. Gold, he will see the patient next week and adjust his insulin pump. The above impression and plan of care have been discussed and directed by signing physician. Jordyn Pablo, nurse practitioner, acting as scribe for signing physician.
[2017-03-15] MEDS: GABAPENTIN 400 MG CAP PO SCH (08:57)
[2017-03-15] MEDS: HEPARIN SODIUM,PORCINE 5,000 UNIT/ML 1 ML VIAL SQ SCH ×3 (08:59→15:34)
[2017-03-15] MEDS ORDERED: METOPROLOL TARTRATE 25 MG TAB PO SCH (09:00)
[2017-03-15] MEDS ORDERED: ISOSORBIDE MONONITRATE ER 30 MG TAB.ER.24H PO SCH (09:00)
[2017-03-15] MEDS ORDERED: LOSARTAN 50 MG TAB PO SCH (09:00)
[2017-03-15] MEDS ORDERED: ASPIRIN 81 MG PO SCH (09:00)
[2017-03-15 11:59] LABS: Glucose,Whole Blood 187 mg/dL (75-99)
[2017-03-15] MEDS: SODIUM CHLORIDE 0.9% 1,000 ML IV SCH (12:55)
[2017-03-15 15:40] VITALS: BP 119/75; PULSE 69; RESP 18; TEMP 96.8
[2017-03-15 16:58] LABS: Glucose,Whole Blood 188 mg/dL (75-99)
[2017-03-18] MEDS ORDERED: ERGOCALCIFEROL 50,000 UNIT CAP PO SCH (12:00)
== END 2017-03-15 17:41 | disposition home or self-care (01) ==
LOC: EC 10:31 → 6SEL 12:26
PROVIDERS: ADMIT Family Medicine; ATTEND Family Medicine
DX: E11.649 Type 2 diabetes mellitus with hypoglycemia without coma (principal); I12.9 Hypertensive chronic kidney disease with stage 1 through stage 4 chronic kidney disease, or unspecified chronic kidney disease; N18.3 Chronic kidney disease, stage 3 (moderate); G25.0 Essential tremor; I25.119 Atherosclerotic heart disease of native coronary artery with unspecified angina pectoris; E11.22 Type 2 diabetes mellitus with diabetic chronic kidney disease; E11.42 Type 2 diabetes mellitus with diabetic polyneuropathy; L40.9 Psoriasis, unspecified; E78.5 Hyperlipidemia, unspecified; M19.90 Unspecified osteoarthritis, unspecified site; Z95.5 Presence of coronary angioplasty implant and graft; Z96.41 Presence of insulin pump (external) (internal); Z79.02 Long term (current) use of antithrombotics/antiplatelets; Z79.82 Long term (current) use of aspirin; Z79.4 Long term (current) use of insulin; Z79.899 Other long term (current) drug therapy; E66.9 Obesity, unspecified; Z68.25 Body mass index [BMI] 25.0-25.9, adult; Z85.46 Personal history of malignant neoplasm of prostate; I25.2 Old myocardial infarction; Z86.73 Personal history of transient ischemic attack (TIA), and cerebral infarction without residual deficits; Z87.891 Personal history of nicotine dependence; Z87.442 Personal history of urinary calculi
CPT/HCPCS: 99285 ×2; 36415; 94760; 93005; 80053; 80048; 83036; 82550; 82553; 84484; 85025; 85027; 85610; 85730; 81003; 71020; 70450; G0378 ×2

== ENCOUNTER → 2017-05-06 | Outpatient (CLI) | payer MEDICARE, OTHER ==
[2017-05-06 11:19] LABS: ALT 38 U/L (21-72); AST 20 U/L (17-59); Alkaline Phosphatase 119 U/L (38-126); Anion Gap 10 mmol/L; Blood Urea Nitrogen 17 mg/dL (9-20); Calcium 10.2 mg/dL (8.4-10.2); Carbon Dioxide 26 mmol/L (22-30); Chloride 105 mmol/L (98-107); Cholesterol 194 mg/dL (<200); Glucose 121 mg/dL (74-99); HDL Cholesterol 44 mg/dL (40-60); Non-African American GFR(MDRD) 51 (>60 ml/min/1.73 sqM); Potassium 4.1 mmol/L (3.5-5.1); Sodium 141 mmol/L (137-145); Total Bilirubin 0.6 mg/dL (0.2-1.3); Total Protein 6.8 g/dL (6.3-8.2)
[2017-05-06 19:04] LABS: Urine Creatinine 248.3 mg/dL
== END | disposition home or self-care (01) ==
LOC: LABWHC1 10:11
PROVIDERS: ATTEND Internal Medicine Endocrinology, Diabetes & Metabolism
DX: E11.65 Type 2 diabetes mellitus with hyperglycemia (principal)
CPT/HCPCS: 36415; 80053; 80061; 82043; 82570; 83036

== ENCOUNTER → 2017-06-28 | Outpatient (CLI) | payer MEDICARE, OTHER ==
[2017-06-28 10:39] LABS: HCT 41.9 % (39.0-53.0); HGB 14.3 gm/dL (13.0-17.5); MCH 28.4 pg (25.0-35.0); MCHC 34.2 g/dL (31.0-37.0); MCV 83.1 fL (80.0-100.0); Mean Platelet Volume 7.9; Platelet Count 228 k/uL (150-450); RBC 5.05 m/uL (4.30-5.90); RDW 14.9 % (11.5-15.5); WBC 6.6 k/uL (3.8-10.6)
--- NOTE | 2017-06-28 10:49 | XR ---
EXAMINATION TYPE: XR chest 2V DATE OF EXAM: 06/28/2017 COMPARISON: 03/14/2017 HISTORY: History of cardiac stents. Shortness of breath and chest pain. TECHNIQUE: Frontal and lateral views of the chest are obtained. FINDINGS: There is no focal air space opacity, pleural effusion, or pneumothorax seen. The cardiac silhouette size is within normal limits. The osseous structures are intact. There is limited inspir ation on the lateral image creating crowding of pulmonary vasculature. Minimal multilevel degenerativ e changes of the thoracic spine are noted as well as mild acromio clavicular arthropathy. Prominent e picardial fat pad is seen over the ventricular apex. IMPRESSION: No acute cardiopulmonary process.
[2017-06-28 10:56] LABS: Albumin 3.9 g/dL (3.5-5.0); Calcium 9.9 mg/dL (8.4-10.2); Potassium 4.4 mmol/L (3.5-5.1); Total Bilirubin 0.7 mg/dL (0.2-1.3); Total Protein 6.3 g/dL (6.3-8.2)
== END | disposition home or self-care (01) ==
LOC: LABWHC1 10:01
PROVIDERS: ATTEND Internal Medicine Cardiovascular Disease
DX: R06.02 Shortness of breath (principal); N18.3 Chronic kidney disease, stage 3 (moderate)
CPT/HCPCS: 36415; 71046; 80053; 83880; 85027

== ENCOUNTER 2017-07-30 13:07 | Inpatient (IN) | payer MEDICARE, OTHER ==
[2017-07-30] MEDS ORDERED: SODIUM CHLORIDE 0.9% 500 ML IV STA (13:10)
[2017-07-30 13:24] LABS: Glucose,Whole Blood 319 mg/dL (75-99)
--- NOTE | 2017-07-30 13:33 | ED ---
General Adult HPI - General Chief complaint: Syncope Stated complaint: Weakness Time Seen by Provider: 07/30/17 13:10 Source: patient, family, EMS, RN notes reviewed, old records reviewed Mode of arrival: EMS Limitations: no limitations - History of Present Illness Initial comments: This is a 66-year-old male to the ER for evaluation. This patient presents today for evaluation regarding unresponsiveness, altered mental state. Patient is on history of CVA, including memory deficits, history of dementia, left- sided facial droop. There is an EMS state patient droop is worse. Patient is unsure regarding symptoms are what happened, patient was found on ground by family who was confused. - Related Data Home Medications Medication Instructions Recorded Confirmed Aspirin 81 mg PO DAILY 01/12/15 07/30/17 [place]-3 Acid Ethyl Esters [Lovaza] 1 cap PO BID 01/12/15 07/30/17 Gabapentin 800 mg PO BID 04/18/16 07/30/17 HYDROcodone/APAP 7.5-325MG [[place] 1 tab PO Q6HR PRN 03/14/17 07/30/17 7.5-325] Primidone [Mysoline] 150 mg PO HS 03/14/17 07/30/17 Atorvastatin Calcium [Lipitor] 80 mg PO HS 07/30/17 07/30/17 Cyclobenzaprine [Flexeril] 10 mg PO HS PRN 07/30/17 07/30/17 Donepezil [Aricept] 5 mg PO HS 07/30/17 07/30/17 Ergocalciferol [Vitamin D2] 50,000 unit PO GUERRA 07/30/17 07/30/17 INSULIN LISPRO (For Pump) [humaLOG 0.01 units SQ-PUMP CONTINUOUS 07/30/17 (For Pump)] Meclizine [Antivert] 25 mg PO TID PRN 07/30/17 07/30/17 Memantine HCl [Namenda] 10 mg PO BID 07/30/17 07/30/17 rOPINIRole HCL [Requip] 0.25 mg PO HS 07/30/17 07/30/17 rOPINIRole HCL [Requip] 0.5 mg PO QAM 07/30/17 07/30/17 Previous Rx's Medication Instructions Recorded Isosorbide Mononitrate ER [Imdur] 30 mg PO DAILY #30 tab.er.24h 01/17/15 Losartan [Cozaar] 50 mg PO DAILY #30 tab 01/17/15 Metoprolol Tartrate [Lopressor] 25 mg PO DAILY #30 tab 01/17/15 Nitroglycerin Sl Tabs [Nitrostat] 0.4 mg SUBLINGUAL Q5M PRN #25 tab 01/17/15 Prasugrel [Effient] 10 mg PO DAILY #30 tab 01/17/15 Allergies Allergy/AdvReac Type Severity Reaction Status Date / Time No Known Allergies Allergy Verified 07/30/17 14:13 Review of Systems ROS Statement: Those systems with pertinent positive or pertinent negative responses have been documented in the HPI. ROS Other: All systems not noted in ROS Statement are negative. Past Medical History Past Medical History: Coronary Artery Disease (CAD), Cancer, Chest Pain / Angina , CVA/TIA, Diabetes Mellitus, Hyperlipidemia, Hypertension, Myocardial Infarction ([place]), Osteoarthritis (OA), Pneumonia, Renal Disease, Skin Disorder Additional Past Medical History / Comment(s): IDDM type II-has insulin pump, neuropathy bilateral legs, prostate cancer with gold seeds implanted, CVA with R arm/R leg weakness, chronic low back pain, fx vertebrae L3,4,5 and S1 , nephrolithiasis, Chronic renal disease stage III, psoriasis, mild memory problems but much worse after today's event per family at bedside. Last Myocardial Infarction Date:: 2014 History of Any Multi-Drug Resistant Organisms: None Reported Past Surgical History: Heart Catheterization With Stent Additional Past Surgical History / Comment(s): COLONOCOSPY, LUMBAR EPIDURAL INJ , total 4 cardiac stents (2010 1 stent and 2014 3 stents),juventino cataracts/lens implants, colonoscopy, gold seed implants for prostate cancer. Past Anesthesia/Blood Transfusion Reactions: No Reported Reaction Additional Past Anesthesia/Blood Transfusion Reaction / Comment(s): CLAUSTERPHOBIC Date of Last Stent Placement:: 2010 Past Psychological History: No Psychological Hx Reported Smoking Status: Former smoker Past Alcohol Use History: None Reported Past Drug Use History: None Reported - Past Family History Father Family Medical History: Cancer Additional Family Medical History / Comment(s): FATHER HAD BLADDER CANCER AND OF THIS IN HIS 40'S Mother Family Medical History: Cancer, Dementia Additional Family Medical History / Comment(s): UTERINE CANCER. Mother of dementia at the age of 89yrs. General Exam - General Exam Comments Initial Comments: NIH of 1, left facial droop Limitations: no limitations General appearance: alert, in no apparent distress Head exam: Present: atraumatic, normocephalic, normal inspection Eye exam: Present: normal appearance, PERRL, EOMI. Absent: scleral icterus, conjunctival injection, periorbital swelling ENT exam: Present: normal exam, mucous membranes moist Neck exam: Present: normal inspection. Absent: tenderness, meningismus, lymphadenopathy Respiratory exam: Present: normal lung sounds bilaterally. Absent: respiratory distress, wheezes, rales, rhonchi, stridor Cardiovascular Exam: Present: regular rate, normal rhythm, normal heart sounds. Absent: systolic murmur, diastolic murmur, rubs, gallop, clicks GI/Abdominal exam: Present: soft, normal bowel sounds. Absent: distended, tenderness, guarding, rebound, rigid Extremities exam: Present: normal inspection, full ROM, normal capillary refill. Absent: tenderness, pedal edema, joint swelling, calf tenderness Back exam: Present: normal inspection Neurological exam: Present: alert, oriented X3, CN II-XII intact Psychiatric exam: Present: normal affect, normal mood Skin exam: Present: warm, dry, intact, normal color. Absent: rash Course Vital Signs 07/30/17 07/30/17 07/30/17 13:09 13:23 13:38 Temperature 97.7 F Pulse Rate 61 61 60 Respiratory 20 20 16 Rate Blood Pressure 176/85 169/85 171/86 O2 Sat by Pulse 95 96 96 Oximetry - Reevaluation(s) Reevaluation #1: 07/30/17 13:38 History is obtained from family states patient was very confused found on floor Reevaluation #2: 07/30/17 14:58 Patient without further syncopal or seizure-like activity here in the ER EKG Findings - EKG Comments: EKG Findings:: Wound was flavored EKG shows normal sinus rhythm rate of 63, [place] 192, QRS 80, QTC 411 Medical Decision Making - Medical Decision Making 66 male the ER for evaluation of syncopal event, seizure, versus CVA. Patient to be admitted for neurological evaluation and treatment, antiepileptics - Lab Data Result diagrams: 07/30/17 13:25 07/30/17 13:25 Lab Results 07/30/17 07/30/17 07/30/17 Range/Units 13:23 13:25 13:25 WBC 6.1 (3.8-10.6) k/uL RBC 4.41 (4.30-5.90) m/uL Hgb 12.3 L (13.0-17.5) gm/dL Hct 37.7 L (39.0-53.0) % MCV 85.6 (80.0-100.0) fL MCH 27.9 (25.0-35.0) pg MCHC 32.7 (31.0-37.0) g/dL RDW 13.3 (11.5-15.5) % Plt Count 263 (150-450) k/uL Neutrophils % 80 % Lymphocytes % 9 % Monocytes % 6 % Eosinophils % 2 % Basophils % 1 % Neutrophils # 4.9 (1.3-7.7) k/uL Lymphocytes # 0.5 L (1.0-4.8) k/uL Monocytes # 0.4 (0-1.0) k/uL Eosinophils # 0.1 (0-0.7) k/uL Basophils # 0.0 (0-0.2) k/uL PT (9.0-12.0) sec INR (<1.2) APTT (22.0-30.0) sec Sodium (137-145) mmol/L Potassium (3.5-5.1) mmol/L Chloride (98-107) mmol/L Carbon Dioxide (22-30) mmol/L Anion Gap mmol/L BUN (9-20) mg/dL Creatinine (0.66-1.25) mg/dL Est GFR (MDRD) Af Amer (>60 ml/min/1.73 sqM) Est GFR (MDRD) Non-Af (>60 ml/min/1.73 sqM) Glucose (74-99) mg/dL POC Glucose (mg/dL) 319 H (75-99) mg/dL POC Glu Home Health Rn ID Evangelina Dueñas Plasma Lactic Acid Abdirizak (0.7-2.0) mmol/L Calcium (8.4-10.2) mg/dL Phosphorus (2.5-4.5) mg/dL Magnesium (1.6-2.3) mg/dL Total Bilirubin (0.2-1.3) mg/dL AST (17-59) U/L ALT (21-72) U/L Alkaline Phosphatase (38-126) U/L Total Creatine Kinase 60 (55-170) U/L CK-MB (CK-2) 0.8 (0.0-2.4) ng/mL CK-MB (CK-2) Rel Index 1.3 Troponin I <0.012 (0.000-0.034) ng/mL Total Protein (6.3-8.2) g/dL Albumin (3.5-5.0) g/dL 07/30/17 07/30/17 07/30/17 Range/Units 13:25 13:25 13:25 WBC (3.8-10.6) k/uL RBC (4.30-5.90) m/uL Hgb (13.0-17.5) gm/dL Hct (39.0-53.0) % MCV (80.0-100.0) fL MCH (25.0-35.0) pg MCHC (31.0-37.0) g/dL RDW (11.5-15.5) % Plt Count (150-450) k/uL Neutrophils % % Lymphocytes % % Monocytes % % Eosinophils % % Basophils % % Neutrophils # (1.3-7.7) k/uL Lymphocytes # (1.0-4.8) k/uL Monocytes # (0-1.0) k/uL Eosinophils # (0-0.7) k/uL Basophils # (0-0.2) k/uL PT 9.5 (9.0-12.0) sec INR 1.0 (<1.2) APTT 18.2 L (22.0-30.0) sec Sodium 136 L (137-145) mmol/L Potassium 5.5 H (3.5-5.1) mmol/L Chloride 100 (98-107) mmol/L Carbon Dioxide 27 (22-30) mmol/L Anion Gap 9 mmol/L BUN 16 (9-20) mg/dL Creatinine 1.40 H (0.66-1.25) mg/dL Est GFR (MDRD) Af Amer >60 (>60 ml/min/1.73 sqM) Est GFR (MDRD) Non-Af 51 (>60 ml/min/1.73 sqM) Glucose 311 H (74-99) mg/dL POC Glucose (mg/dL) (75-99) mg/dL POC Glu Home Health Rn ID Plasma Lactic Acid Abdirizak 1.4 (0.7-2.0) mmol/L Calcium 9.7 (8.4-10.2) mg/dL Phosphorus 3.1 (2.5-4.5) mg/dL Magnesium 1.8 (1.6-2.3) mg/dL Total Bilirubin 0.7 (0.2-1.3) mg/dL AST 17 (17-59) U/L ALT 29 (21-72) U/L Alkaline Phosphatase 190 H (38-126) U/L Total Creatine Kinase (55-170) U/L CK-MB (CK-2) (0.0-2.4) ng/mL CK-MB (CK-2) Rel Index Troponin I (0.000-0.034) ng/mL Total Protein 6.1 L (6.3-8.2) g/dL Albumin 3.5 (3.5-5.0) g/dL - Radiology Data Radiology results: report reviewed (CT brain negative chest x-ray negative), image reviewed Disposition Clinical Impression: CVA (cerebral vascular accident), Syncope, Seizure Disposition: ADMITTED IP TO THIS [facility] Condition: Fair Referrals: Cedric Gold DO [Primary Care Provider] - 1-2 days
[2017-07-30] MEDS ORDERED: levETIRAcetam IV 1,000 MG in SALINE 1 100ML.BAG IVPB STA (13:39)
[2017-07-30 13:54] LABS: Basophils % (A) 1 %; Eosinophils # (A) 0.1 k/uL (0-0.7); Eosinophils % (A) 2 %; HCT 37.7 % (39.0-53.0); HGB 12.3 gm/dL (13.0-17.5); Lymphocytes # (A) 0.5 k/uL (1.0-4.8); Lymphocytes % (A) 9 %; MCH 27.9 pg (25.0-35.0); MCHC 32.7 g/dL (31.0-37.0); MCV 85.6 fL (80.0-100.0); Mean Platelet Volume 7.1; Monocytes # (A) 0.4 k/uL (0-1.0); Monocytes % (A) 6 %; Neutrophils # (A) 4.9 k/uL (1.3-7.7); Neutrophils % (A) 80 %; Platelet Count 263 k/uL (150-450); RBC 4.41 m/uL (4.30-5.90); RDW 13.3 % (11.5-15.5); WBC 6.1 k/uL (3.8-10.6)
[2017-07-30 13:59] LABS: ALT 29 U/L (21-72); AST 17 U/L (17-59); Albumin 3.5 g/dL (3.5-5.0); Alkaline Phosphatase 190 U/L (38-126); Anion Gap 9 mmol/L; Blood Urea Nitrogen 16 mg/dL (9-20); Calcium 9.7 mg/dL (8.4-10.2); Carbon Dioxide 27 mmol/L (22-30); Chloride 100 mmol/L (98-107); Glucose 311 mg/dL (74-99); Magnesium 1.8 mg/dL (1.6-2.3); Phosphorus 3.1 mg/dL (2.5-4.5); Potassium 5.5 mmol/L (3.5-5.1); Sodium 136 mmol/L (137-145); Total Bilirubin 0.7 mg/dL (0.2-1.3); Total Protein 6.1 g/dL (6.3-8.2)
--- NOTE | 2017-07-30 14:16 | XR ---
EXAMINATION TYPE: XR chest 2V DATE OF EXAM: 07/30/2017 COMPARISON: Chest x-ray June 28, 2017 HISTORY: Weakness. TECHNIQUE: Frontal and lateral views of the chest are obtained. FINDINGS: There is chronic parenchymal change with new central vascular congestion slightly more pro minent at level of left hilum. No large pleural effusion or pneumothorax is seen bilaterally. The ca rdiac silhouette size is stable and upper limits of normal. The osseous structures are intact. IMPRESSION: New central vascular congestion on background of chronic parenchymal change felt present . Finding slightly more prominent left hilar level and developing infiltrate at this level is not ent irely excluded. Consider progress two view chest xray.
[2017-07-30 14:17] LABS: Creatine Kinase 60 U/L (55-170)
[2017-07-30 14:27] LABS: Creatine Kinase MB 0.8 ng/mL (0.0-2.4)
[2017-07-30 14:31] LABS: Troponin I <0.012 ng/mL (0.000-0.034)
[2017-07-30 14:37] LABS: Prothrombin Time 9.5 sec (9.0-12.0)
--- NOTE | 2017-07-30 14:38 | CT ---
EXAMINATION TYPE: CT brain wo con DATE OF EXAM: 07/30/2017 COMPARISON: Prior CT brain 03/06/2017 HISTORY: Weakness CT DLP: 1156 mGycm Automated exposure control for dose reduction was used. Helical acquisition brain FINDINGS: Cerebral vascular calcifications are again noted. There is streak artifact due to patient's dental am algam. No hemorrhage or hydrocephalus. No mass effect or midline shift. The calvarium is intact. Para nasal sinuses and mastoid air cells as visualized are well aerated with the exception of the mastoids on the right. There is some inflammatory change. Periventricular white matter shows low attenuation. IMPRESSION: SIMILAR FINDINGS TO PRIOR EXAM, NO ACUTE ABNORMALITIES EVIDENT. MILD INFLAMMATORY CHANGE IN THE MASTO ID AIR CELLS ON THE RIGHT. AGE-RELATED CHANGES OF ATROPHY AND PROBABLE CHRONIC SMALL VESSEL ISCHEMIA.
[2017-07-30 14:49] LABS: Partial Thromboplastin Time 18.2 sec (22.0-30.0)
[2017-07-30] MEDS ORDERED: ASPIRIN 325 MG TAB PO STA (14:54)
[2017-07-30] MEDS ORDERED: INSULIN REGULAR 100 UNIT/ML VIAL SQ ONE (15:28)
[2017-07-30 15:44] LABS: Glucose,Whole Blood 272 mg/dL (75-99)
[2017-07-30 16:24] LABS: Glucose,Whole Blood 237 mg/dL (75-99)
[2017-07-30] MEDS: SODIUM CHLORIDE 0.9% 1,000 ML IV SCH (17:34)
[2017-07-30 17:43] LABS: Appearance,Urine Clear (Clear); Bilirubin,Urine Negative (Negative); Blood,Urine Negative (Negative); Color,Urine Yellow; Glucose,Urine (UA) 3+ (Negative); Ketones,Urine Negative (Negative); Leukocyte Esterase,Urine Negative (Negative); Nitrite,Urine Negative (Negative); PH, Urine 6.5 (5.0-8.0); Protein,Urine Negative (Negative)
[2017-07-30] MEDS ORDERED: MECLIZINE 25 MG TAB PO PRN (18:22)
[2017-07-30] MEDS ORDERED: CYCLOBENZAPRINE 10 MG TAB PO PRN (18:22)
[2017-07-30] MEDS ORDERED: INSULIN LISPRO (For Pump) 100 UNIT/ML VIAL SQ-PUMP SCH (18:30)
[2017-07-30] MEDS: PRIMIDONE 50 MG TAB PO SCH (20:00)
[2017-07-30] MEDS: HYDROcodone/APAP 7.5-325MG 1 EACH TAB PO PRN (20:00)
[2017-07-30] MEDS: GABAPENTIN 400 MG CAP PO SCH (20:01)
[2017-07-30] MEDS: MEMANTINE 10 MG TAB PO SCH (20:01)
[2017-07-30] MEDS: ATORVASTATIN 80 MG TAB PO SCH (20:01)
[2017-07-30] MEDS: DONEPEZIL 5 MG TAB PO SCH (20:02)
[2017-07-30] MEDS: levETIRAcetam IV 1,000 MG in SALINE 1 100ML.BAG IVPB SCH (20:02)
[2017-07-30 20:54] LABS: Glucose,Whole Blood 325 mg/dL (75-99)
[2017-07-30] MEDS: INSULIN ASPART 100 UNIT/ML 1 ML 10 ML VIAL SQ SCH (21:08)
[2017-07-31] MEDS: SODIUM CHLORIDE 0.9% 1,000 ML IV SCH ×3 (02:05→20:53)
[2017-07-31 05:40] LABS: Hemoglobin A1C 7.4 % (4.0-6.0)
[2017-07-31 06:06] LABS: Glucose,Whole Blood 218 mg/dL (75-99)
[2017-07-31 06:36] LABS: Basophils % (A) 1 %; Eosinophils # (A) 0.1 k/uL (0-0.7); Eosinophils % (A) 3 %; HCT 37.2 % (39.0-53.0); HGB 12.5 gm/dL (13.0-17.5); Lymphocytes # (A) 0.6 k/uL (1.0-4.8); Lymphocytes % (A) 12 %; MCH 27.9 pg (25.0-35.0); MCHC 33.5 g/dL (31.0-37.0); MCV 83.4 fL (80.0-100.0); Monocytes # (A) 0.3 k/uL (0-1.0); Monocytes % (A) 6 %; Neutrophils # (A) 3.7 k/uL (1.3-7.7); Neutrophils % (A) 77 %; Platelet Count 254 k/uL (150-450); Poikilocytosis Slight; RBC 4.46 m/uL (4.30-5.90); RDW 13.3 % (11.5-15.5); WBC 4.9 k/uL (3.8-10.6)
[2017-07-31 06:51] LABS: ALT 29 U/L (21-72); AST 16 U/L (17-59); Albumin 3.2 g/dL (3.5-5.0); Alkaline Phosphatase 166 U/L (38-126); Anion Gap 10 mmol/L; Blood Urea Nitrogen 14 mg/dL (9-20); Calcium 9.1 mg/dL (8.4-10.2); Carbon Dioxide 26 mmol/L (22-30); Chloride 103 mmol/L (98-107); Glucose 222 mg/dL (74-99); Potassium 4.4 mmol/L (3.5-5.1); Sodium 139 mmol/L (137-145); Total Bilirubin 0.5 mg/dL (0.2-1.3); Total Protein 5.7 g/dL (6.3-8.2)
[2017-07-31] MEDS: INSULIN ASPART 100 UNIT/ML 1 ML 10 ML VIAL SQ SCH ×2 (06:59→12:28)
[2017-07-31] MEDS: PANTOPRAZOLE 40 MG TABLET PO SCH (07:00)
[2017-07-31] MEDS: GABAPENTIN 400 MG CAP PO SCH ×2 (10:08→20:52)
[2017-07-31] MEDS: levETIRAcetam IV 1,000 MG in SALINE 1 100ML.BAG IVPB SCH ×2 (10:09→20:52)
[2017-07-31] MEDS: ISOSORBIDE MONONITRATE ER 30 MG TAB.ER.24H PO SCH (10:09)
[2017-07-31] MEDS: METOPROLOL TARTRATE 25 MG TAB PO SCH (10:10)
[2017-07-31] MEDS: MEMANTINE 10 MG TAB PO SCH ×2 (10:10→20:53)
[2017-07-31] MEDS: LOSARTAN 50 MG TAB PO SCH (10:10)
[2017-07-31] MEDS: PRASUGREL 10 MG TAB PO SCH (10:11)
[2017-07-31 11:40] VITALS: BMI 34.8
[2017-07-31 11:45] LABS: Glucose,Whole Blood 263 mg/dL (75-99)
[2017-07-31] MEDS: ASPIRIN 325 MG TAB PO SCH (12:02)
--- NOTE | 2017-07-31 12:06 | P.HPIM ---
History of Present Illness H&P Date: 07/31/17 Chief Complaint: Syncope 66-year-old male who presented to the emergency room with a chief complaint of syncope per the patients . The patient states he was laying on the ground playing with his grandkids and the next thing he remembers was his over him saying he "passed out". Patient states he did not feel lightheaded or dizzy. Denies shortness of breath or cough. Denies chest pain or pressure. The patients states she was calling his name multiple times and he was not responding. When he became arousable, she states he was very confused and she noticed he had a left facial drip. She asked him to raise both of his arms and he was unable to hold his arms out straight in front of him. The patient has a history of coronary artery disease with previous stent placement, CVA, diabetes mellitus with an insulin pump, neuropathy to bilateral lower extremities, prostate cancer, hyperlipidemia, hypertension, myocardial infarction, osteoarthritis, chronic kidney disease, and chronic low back pain. Patient is a former cigarette smoker. Chest x-ray: New central vascular congestion on background of chronic parenchymal changes present. Finding slightly more prominent left hilar level and developing infiltrate at this level was not entirely excluded. CT of the brain: No acute abnormalities identified. Mild inflammatory changes in the mastoid air cells on the right. Age-related changes of atrophy and probable chronic small vessel ischemia. Laboratory data: WBC 6.1. Hemoglobin 12.3. Platelet count 263. Sodium 136. Potassium 5.5. BUN 16. Creatinine 1.40. GFR 51. Glucose 311. Magnesium 1.8. Troponins negative 1 Lactic acid: 1.4 Urinalysis reveals: 3+ glucose, but otherwise unremarkable The patient was admitted to the hospital under the care of Dr. Gold. Consultations were placed to neurology. Review of Systems GENERAL: Patient denies fever. Denies chills. EYES: Denies blurred vision. Denies vision changes. Denies eye pain. EARS, NOSE, MOUTH, & THROAT: Positive for left facial droop, which has resolved. Denies headache. Denies sore throat. Denies ear pain. RESPIRATORY: Denies cough. Denies shortness of breath. Denies sputum production. Denies hemoptysis. CARDIOVASCULAR: Denies chest pain or pressure. Denies palpitations. Denies arrhythmias. GASTROINTESTINAL: Denies abdominal pain. Denies diarrhea. Denies constipation. Denies nausea. Denies vomiting. Denies heartburn. Denies blood in the stool. GENITOURINARY: Denies urinary frequency. Denies burning. Denies dysuria. Denies cloudy urine. Denies blood in the urine. MUSCULOSKELETAL: Denies myalgias. Denies joint swelling. Denies decreased range of motion beyond patients baseline. INTEGUMENTARY: Denies pruitis. Denies rash. PSYCHIATRIC: Denies suicidal or homicial ideations. ENDOCRINE: Denies weight change. Denies polydipsia. Denies polyuria. HEMATOLOGIC: Denies bleeding disorders. Past Medical History Past Medical History: Coronary Artery Disease (CAD), Cancer, Chest Pain / Angina , CVA/TIA, Diabetes Mellitus, Hyperlipidemia, Hypertension, Myocardial Infarction ([place]), Osteoarthritis (OA), Pneumonia, Renal Disease, Skin Disorder Additional Past Medical History / Comment(s): lt hand dominant,IDDM type II-has insulin pump-FILLED 07-29-17, neuropathy bilateral legs, prostate cancer with gold seeds implanted, CVA 04/18/16 with R arm/R leg weakness,lt facial droop, chronic low back pain, fx vertebrae L3,4,5 and S1, nephrolithiasis, Chronic renal disease stage III, psoriasis, mild memory problems but much worse after today's event per family at bedside. Last Myocardial Infarction Date:: 2014 History of Any Multi-Drug Resistant Organisms: None Reported Past Surgical History: Heart Catheterization With Stent Additional Past Surgical History / Comment(s): COLONOCOSPY, LUMBAR EPIDURAL INJ , total 4 cardiac stents (2010 1 stent and 2014 3 stents),juventino cataracts/lens implants, colonoscopy, gold seed implants for prostate cancer. Past Anesthesia/Blood Transfusion Reactions: Motion Sickness Additional Past Anesthesia/Blood Transfusion Reaction / Comment(s): CLAUSTERPHOBIC Date of Last Stent Placement:: 2010 Past Psychological History: No Psychological Hx Reported Additional Psychological History / Comment(s): PT LIVES AT HOME WITH HIS KWAN IS INDEPENDANT WITH HIS OWN CARE. USED TO WORK FOR [employer], no home care services, has insulin pump/glucometer Smoking Status: Former smoker Past Alcohol Use History: None Reported Additional Past Alcohol Use History / Comment(s): STARTED SMOKING AROUND AGE 48( 1998) SMOKE A PIPE OR CIGARS 2-3 times a week but quit 04/2016. Past Drug Use History: None Reported - Past Family History Father Family Medical History: Cancer Additional Family Medical History / Comment(s): FATHER HAD BLADDER CANCER AND OF THIS IN HIS 40'S Mother Family Medical History: Cancer, Dementia Additional Family Medical History / Comment(s): UTERINE CANCER. Mother of dementia at the age of 89yrs. Medications and Allergies Home Medications Medication Instructions Recorded Confirmed Type Aspirin 81 mg PO DAILY 01/12/15 07/30/17 History [place]-3 Acid Ethyl Esters [Lovaza] 1 cap PO BID 01/12/15 07/30/17 History Isosorbide Mononitrate ER [Imdur] 30 mg PO DAILY #30 tab.er.24h 01/17/15 Rx Losartan [Cozaar] 50 mg PO DAILY #30 tab 01/17/15 07/30/17 Rx Metoprolol Tartrate [Lopressor] 25 mg PO DAILY #30 tab 01/17/15 07/30/17 Rx Nitroglycerin Sl Tabs [Nitrostat] 0.4 mg SUBLINGUAL Q5M PRN #25 tab 01/17/15 Rx Prasugrel [Effient] 10 mg PO DAILY #30 tab 01/17/15 07/30/17 Rx Gabapentin 800 mg PO BID 04/18/16 07/30/17 History HYDROcodone/APAP 7.5-325MG [[place] 1 tab PO Q6HR PRN 03/14/17 07/30/17 History 7.5-325] Primidone [Mysoline] 150 mg PO HS 03/14/17 07/30/17 History Atorvastatin Calcium [Lipitor] 80 mg PO HS 07/30/17 07/30/17 History Cyclobenzaprine [Flexeril] 10 mg PO HS PRN 07/30/17 07/30/17 History Donepezil [Aricept] 5 mg PO HS 07/30/17 07/30/17 History Ergocalciferol [Vitamin D2] 50,000 unit PO GUERRA 07/30/17 07/30/17 History INSULIN LISPRO (For Pump) [humaLOG 0.01 units SQ-PUMP CONTINUOUS 07/30/17 History (For Pump)] Meclizine [Antivert] 25 mg PO TID PRN 07/30/17 07/30/17 History Memantine HCl [Namenda] 10 mg PO BID 07/30/17 07/30/17 History rOPINIRole HCL [Requip] 0.25 mg PO HS 07/30/17 07/30/17 History rOPINIRole HCL [Requip] 0.5 mg PO QAM 07/30/17 07/30/17 History Allergies Allergy/AdvReac Type Severity Reaction Status Date / Time No Known Allergies Allergy Verified 07/30/17 14:13 Physical Exam Vitals: Vital Signs Temp Pulse Pulse Resp BP BP Pulse Ox 07/31/17 08:00 97.0 F L 70 17 150/90 95 07/31/17 04:00 98.8 F 70 16 144/92 07/31/17 00:00 98.3 F 66 18 138/80 94 L 07/30/17 21:40 95 07/30/17 20:00 98.5 F 64 18 146/86 95 07/30/17 16:57 62 18 07/30/17 15:55 96.9 F L 62 18 142/79 98 07/30/17 15:25 98 F 65 16 144/73 97 07/30/17 13:38 60 16 171/86 96 07/30/17 13:23 61 20 169/85 96 07/30/17 13:09 97.7 F 61 20 176/85 95 Intake and Output 07/30/17 07/31/17 07/31/17 22:59 06:59 14:59 Intake Total 236 240 Output Total 500 Balance 236 -500 240 Intake: Oral 236 240 Output: Urine 500 Other: Voiding Method Urinal Urinal # Voids 1 2 Weight 110.2 kg GENERAL: This is a 66-year-old male in no apparent distress at the time of examination. Pleasant and cooperative. HEENT: Head is atraumatic, normocephalic. Pupils are equal, round, and reactive to light. Sclerae anicteric. Conjunctivae are clear. Mucus membranes of the mouth are moist. Neck is supple. RESPIRATORY: Clear to ausculation. No wheezes, rales, or rhonchi. No use of accessory muscles. Patient maintaining oxygen saturation greater than 92%. No chest wall tenderness is noted on palpation or with deep breathing. CARDIOVASCULAR: Regular rate and rhythm. S1 and S2 noted. No JVD noted. No S3 or S4 noted. GASTROINTESTINAL: Obese. No distention noted. Abdomen soft and round. Normal active bowel sounds auscultated x 4 quadrants. No pain or tenderness noted upon palpation. INTEGUMENTARY: No cyanosis. No jaundice. No rashes noted. No cellulitis noted. EXTREMITIES: 2+ peripheral pulses. No evidence of peripheral edema. No calf tenderness noted. NEUROLOGIC: Cranial nerves II-XII intact. motor strength equal bilaterally. No obvious deficits noted. PSYCHIATRIC: Awake, alert, and oriented X 3. Appropriate affect. Results CBC & Chem 7: 07/31/17 06:03 07/31/17 06:03 Labs: Abnormal Lab Results - Last 24 Hours (Table) 07/30/17 07/30/17 07/30/17 Range/Units 13:23 13:25 13:25 Hgb 12.3 L (13.0-17.5) gm/dL Hct 37.7 L (39.0-53.0) % Lymphocytes # 0.5 L (1.0-4.8) k/uL APTT (22.0-30.0) sec Sodium 136 L (137-145) mmol/L Potassium 5.5 H (3.5-5.1) mmol/L Creatinine 1.40 H (0.66-1.25) mg/dL Glucose 311 H (74-99) mg/dL POC Glucose (mg/dL) 319 H (75-99) mg/dL Hemoglobin A1c (4.0-6.0) % AST (17-59) U/L Alkaline Phosphatase 190 H (38-126) U/L Total Protein 6.1 L (6.3-8.2) g/dL Albumin (3.5-5.0) g/dL Urine Glucose (UA) (Negative) 07/30/17 07/30/17 07/30/17 Range/Units 13:25 13:25 15:36 Hgb (13.0-17.5) gm/dL Hct (39.0-53.0) % Lymphocytes # (1.0-4.8) k/uL APTT 18.2 L (22.0-30.0) sec Sodium (137-145) mmol/L Potassium (3.5-5.1) mmol/L Creatinine (0.66-1.25) mg/dL Glucose (74-99) mg/dL POC Glucose (mg/dL) 272 H (75-99) mg/dL Hemoglobin A1c 7.4 H (4.0-6.0) % AST (17-59) U/L Alkaline Phosphatase (38-126) U/L Total Protein (6.3-8.2) g/dL Albumin (3.5-5.0) g/dL Urine Glucose (UA) (Negative) 07/30/17 07/30/17 07/30/17 Range/Units 16:21 17:26 20:53 Hgb (13.0-17.5) gm/dL Hct (39.0-53.0) % Lymphocytes # (1.0-4.8) k/uL APTT (22.0-30.0) sec Sodium (137-145) mmol/L Potassium (3.5-5.1) mmol/L Creatinine (0.66-1.25) mg/dL Glucose (74-99) mg/dL POC Glucose (mg/dL) 237 H 325 H (75-99) mg/dL Hemoglobin A1c (4.0-6.0) % AST (17-59) U/L Alkaline Phosphatase (38-126) U/L Total Protein (6.3-8.2) g/dL Albumin (3.5-5.0) g/dL Urine Glucose (UA) 3+ H (Negative) 07/31/17 07/31/17 07/31/17 Range/Units 06:03 06:03 06:05 Hgb 12.5 L (13.0-17.5) gm/dL Hct 37.2 L (39.0-53.0) % Lymphocytes # 0.6 L (1.0-4.8) k/uL APTT (22.0-30.0) sec Sodium (137-145) mmol/L Potassium (3.5-5.1) mmol/L Creatinine 1.32 H (0.66-1.25) mg/dL Glucose 222 H (74-99) mg/dL POC Glucose (mg/dL) 218 H (75-99) mg/dL Hemoglobin A1c (4.0-6.0) % AST 16 L (17-59) U/L Alkaline Phosphatase 166 H (38-126) U/L Total Protein 5.7 L (6.3-8.2) g/dL Albumin 3.2 L (3.5-5.0) g/dL Urine Glucose (UA) (Negative) Microbiology - Last 24 Hours (Table) 07/30/17 17:26 Urine Culture - Preliminary Urine,Clean Catch Thrombosis Risk Factor Assmnt - Choose All That Apply Any of the Below Risk Factors Present?: Yes Each Factor Represents 1 point: Obesity (BMI >25) Other Risk Factors: Yes Each Risk Factor Represents 2 Points: Age 61-74 years, Malignancy Other congenital or acquired thrombophilia - If yes, enter type in comment: No Each Risk Factor Represents 5 Points: Stroke (< 1 month) Thrombosis Risk Factor Assessment Total Risk Factor Score: 10 Thrombosis Risk Factor Assessment Level: High Risk Assessment and Plan Plan: ASSESSMENT: Complaints of passing out, confusion, and left facial droop per , rule out seizure versus TIA History of cerebrovascular accident Diabetes mellitus, type II, utilizing insulin pump, hemoglobin A1c 7.4% Hyperglycemia, related to uncontrolled diabetes mellitus Coronary artery disease with previous myocardial infarction and stent placement in 2010 Chronic kidney disease, stage III, GFR 51 Hyperkalemia, resolved Hypertension Hyperlipidemia Osteoarthritis Obesity: BMI 34.9 History of nicotine dependence, in remission, patient quit smoking cigarettes in 2015 PLAN: Neurology on consult. Await further recommendations and input Continue aspirin and effient Await results of EEG staff educator on consult due to hyperglycemia PT/OT consult Home meds as appropriate Monitor labs GI prophylaxis: Protonix 40 mg PO Daily DVT prophylaxis: Venodyne's to bilateral lower extremities Monitor vital signs and address as appropriate Discharge planning: Patient to return home when stable Further recommendations pending patient's course Anticipate discharge home tomorrow if patient remains stable Nurse practitioner note has been reviewed by physician. Signing provider agrees with the documented findings, assessment, and plan of care.
[2017-07-31] MEDS ORDERED: INSULIN PUMP BASAL RATES 1 EACH MISC MISCELLANE PRN (12:52)
[2017-07-31] MEDS ORDERED: INSPUCOR MISCELLANE PRN (12:52)
[2017-07-31] MEDS ORDERED: INSULIN PUMP TARGET GLUCOSE 1 EACH MISC MISCELLANE PRN (12:52)
[2017-07-31] MEDS ORDERED: INSULIN PUMP ACTIVE INSULIN 1 EACH MISC MISCELLANE PRN (12:52)
[2017-07-31] MEDS ORDERED: INSULIN ASPART 100 UNIT/ML 1 ML 10 ML VIAL SQ PRN (12:52)
[2017-07-31 16:55] LABS: Glucose,Whole Blood 471 mg/dL (75-99)
[2017-07-31] MEDS: INSULIN PUMP MEAL BOLUS 1 UNIT MISC MISCELLANE SCH ×2 (17:03→21:21)
[2017-07-31] MEDS: HYDROcodone/APAP 7.5-325MG 1 EACH TAB PO PRN (18:17)
[2017-07-31 18:25] LABS: Glucose,Whole Blood 138 mg/dL (75-99)
--- NOTE | 2017-07-31 18:59 | EEG ---
ELECTROENCEPHALOGRAM REPORT DATE OF SERVICE: 07/31/2017. REASON FOR TESTING: Syncope. DESCRIPTION OF THE PROCEDURE: This EEG was performed using a 21 channel digital electroencephalograph, following international 10-20 system. DESCRIPTION OF THE RECORDING: From the beginning of the tracing, and with patient's eyes closed, the background rhythm was mostly consisting of 7 Hz theta frequency in the posterior occipital leads. No obvious asymmetry is seen. Photic stimulation was performed with a minimal driving response seen. No pathological waves were elicited. The patient does reach stage II of sleep during the tracing and occasional sleep spindles are seen. Hyperventilation was not performed. No epileptiform discharges were seen. His EKG lead showed a regular rate and rhythm. INTERPRETATION: This asleep and awake EEG is abnormal due to the presence of generalized slowing of the background rhythm, mostly in the theta range. This is consistent with mild encephalopathy. No epileptiform discharges were noticed. The absence of epileptiform discharges does not rule out the diagnosis of epilepsy; therefore, clinical correlation is recommended. [place] / SAHIL: [id number] / PASCUAL
[2017-07-31 20:13] LABS: Cholesterol 133 mg/dL (<200); HDL Cholesterol 27 mg/dL (40-60); LDL Cholesterol,Calculated 67 mg/dL (0-99); Triglycerides 197 mg/dL (<150)
[2017-07-31] MEDS: PRIMIDONE 50 MG TAB PO SCH (20:52)
[2017-07-31] MEDS: DONEPEZIL 5 MG TAB PO SCH (20:53)
[2017-07-31] MEDS: ATORVASTATIN 80 MG TAB PO SCH (20:53)
[2017-07-31 21:23] LABS: Glucose,Whole Blood 78 mg/dL (75-99)
[2017-08-01] MEDS: HYDROcodone/APAP 7.5-325MG 1 EACH TAB PO PRN ×2 (02:42→17:41)
[2017-08-01 06:13] LABS: Glucose,Whole Blood 65 mg/dL (75-99)
[2017-08-01 06:26] LABS: Glucose,Whole Blood 87 mg/dL (75-99)
[2017-08-01 06:32] LABS: Basophils % (A) 1 %; Eosinophils # (A) 0.2 k/uL (0-0.7); Eosinophils % (A) 3 %; HCT 39.1 % (39.0-53.0); Lymphocytes # (A) 0.8 k/uL (1.0-4.8); Lymphocytes % (A) 13 %; MCH 28.6 pg (25.0-35.0); MCHC 33.1 g/dL (31.0-37.0); MCV 86.5 fL (80.0-100.0); Mean Platelet Volume 6.8; Monocytes # (A) 0.4 k/uL (0-1.0); Monocytes % (A) 6 %; Neutrophils % (A) 77 %; Platelet Count 256 k/uL (150-450); RBC 4.53 m/uL (4.30-5.90); RDW 13.6 % (11.5-15.5); WBC 6.5 k/uL (3.8-10.6)
[2017-08-01] MEDS: SODIUM CHLORIDE 0.9% 1,000 ML IV SCH (06:33)
[2017-08-01] MEDS: PANTOPRAZOLE 40 MG TABLET PO SCH (06:36)
[2017-08-01 06:42] LABS: ALT 33 U/L (21-72); AST 19 U/L (17-59); Albumin 3.4 g/dL (3.5-5.0); Alkaline Phosphatase 151 U/L (38-126); Anion Gap 10 mmol/L; Blood Urea Nitrogen 16 mg/dL (9-20); Calcium 9.6 mg/dL (8.4-10.2); Carbon Dioxide 26 mmol/L (22-30); Chloride 105 mmol/L (98-107); Glucose 61 mg/dL (74-99); Potassium 4.3 mmol/L (3.5-5.1); Sodium 141 mmol/L (137-145); Total Bilirubin 0.4 mg/dL (0.2-1.3); Total Protein 5.9 g/dL (6.3-8.2)
[2017-08-01 07:56] LABS: Glucose,Whole Blood 169 mg/dL (75-99)
[2017-08-01] MEDS: INSULIN PUMP MEAL BOLUS 1 UNIT MISC MISCELLANE SCH ×4 (08:47→21:29)
[2017-08-01] MEDS: GABAPENTIN 400 MG CAP PO SCH ×2 (09:15→20:54)
[2017-08-01] MEDS: ISOSORBIDE MONONITRATE ER 30 MG TAB.ER.24H PO SCH (09:15)
[2017-08-01] MEDS: ASPIRIN 325 MG TAB PO SCH (09:15)
[2017-08-01] MEDS: METOPROLOL TARTRATE 25 MG TAB PO SCH (09:16)
[2017-08-01] MEDS: LOSARTAN 50 MG TAB PO SCH (09:16)
[2017-08-01] MEDS: PRASUGREL 10 MG TAB PO SCH (09:18)
[2017-08-01] MEDS: MEMANTINE 10 MG TAB PO SCH ×2 (09:18→20:54)
[2017-08-01] MEDS: levETIRAcetam IV 1,000 MG in SALINE 1 100ML.BAG IVPB SCH ×2 (09:19→20:57)
--- NOTE | 2017-08-01 09:25 | US ---
EXAMINATION TYPE: US carotid duplex BILAT DATE OF EXAM: 08/01/2017 COMPARISON: NONE CLINICAL HISTORY: SYNCOPE. EXAM MEASUREMENTS: RIGHT: Peak Systolic Velocity (PSV) cm/sec ----- Right CCA: 68.3 ----- Right ICA: 68.1 ----- Right ECA: 79.1 ICA/CCA ratio: 1.0 RIGHT: End Diastole cm/sec ----- Right CCA: 10.9 ----- Right ICA: 17.9 ----- Right ECA: 4.9 LEFT: Peak Systolic Velocity (PSV) cm/sec ----- Left CCA: 76.4 ----- Left ICA: 93.7 ----- Left ECA: 62.9 ICA/CCA ratio: 1.0 LEFT: End Diastole cm/sec ----- Left CCA: 76.4 ----- Left ICA: 93. ----- Left ECA: 62.9 VERTEBRALS (direction of flow): Right Vertebral: Antegrade Left Vertebral: Antegrade Rhythm: Normal No significant velocity elevations, mild plaque. IMPRESSION: Mild plaque without hemodynamically significant stenosis. Criteria for Assigning % of Stenosis / Diameter reduction (Estimation based on the indirect measurements of the internal carotid artery velocities (ICA PSV). 1. Normal (no stenosis)=ICA PSV < 125 cm/s: ratio < 2.0: ICA EDV<40 cm/s. 2. Less than 50% stenosis=ICA PSV < 125 cm/s: ratio < 2.0: ICA EDV<40 cm/s. 3. 50 to 69% stenosis=ICA PSV of 125 to 230 cm/s: ration 2.0 ? 4.0: ICA EDV 40-100 cm/s. 4. Greater than 70% stenosis to near occlusion= ICA PSV > 230 cm/s: ratio > 4.0: ICA EDV > 100 cm/s. 5. Near occlusion= ICA PSV velocities may be low or undetectable: variable ratio and ICA EDV. 6. Total occlusion=unable to detect flow.
--- NOTE | 2017-08-01 09:39 | CONS ---
CONSULTATION DATE OF CONSULTATION: 07/31/2017 CHIEF COMPLAINT: Syncope. HISTORY OF PRESENT ILLNESS: Mr. Paez is a pleasant 66-year-old male, who is being evaluated today on 07/31/2017 by the neurology service per the request of Dr. Cedric Gold for a syncopal episode. The patient was brought into [facility] Emergency Room after he was found unconscious by his . The patient remembers that he was playing with his grandson who is 1-year-old. The next thing he remembers is his screaming his name and telling him that he had passed out. The patient does not recall feeling lightheaded or having any chest palpitations prior to the episode. No seizure-like activity was described and he did not have any sphincter incontinence or tongue biting. The patient was at his baseline mentally when he regained consciousness according to his . A CT scan of the brain was done on arrival, which showed generalized atrophy and small-vessel ischemic changes, and this was felt to be unchanged when compared to his 03/06/2017 study. His CBC showed mild anemia with a hemoglobin of 12.5. His urinalysis was normal. His comprehensive metabolic profile showed slightly elevated creatinine at 1.32, hyperglycemia at 222, and slightly reduced protein and albumin at 5.7 and 3.2, respectively. I did review his EEG which showed evidence of mild encephalopathy with no epileptiform discharges seen. At the time of my evaluation, the patient is lying in his bed and appears to be in no acute distress. He denies having any recurrent syncopal or presyncopal symptoms since his arrival. PAST MEDICAL HISTORY: Coronary artery disease, angina, transient ischemic attacks, diabetes, dyslipidemia, hypertension, history of myocardial infarction, osteoarthritis, renal disease, neuropathy, history of prostate cancer, history of stroke, chronic low back pain, benign familial tremor, restless legs syndrome, dementia, dyslipidemia. SOCIAL HISTORY: The patient is a former smoker. He denies any alcohol or drug use. FAMILY HISTORY: Positive for cancer and dementia. HOME MEDICATIONS: Reviewed in the chart. ALLERGIES: No known drug allergies. REVIEW OF SYSTEMS: CONSTITUTIONAL: Negative. EYES: Negative. ENT: Negative. CARDIOVASCULAR: As mentioned above. RESPIRATORY: Positive for shortness of breath. NEUROLOGICAL: As mentioned above. GASTROINTESTINAL: Negative. GENITOURINARY: Positive for history of prostate cancer. PSYCHIATRIC: Positive for history of dementia. DERMATOLOGICAL: Negative. ENDOCRINE: Positive for diabetes. MUSCULOSKELETAL: Positive for chronic low back pain and recurrent joint pain. PHYSICAL EXAM: Vital signs show a temperature of 96.9, pulse 65, respiration 18, blood pressure 116/76. GENERAL APPEARANCE: The patient is a well-developed, elderly male who appears to be in no acute distress. HEENT: Normocephalic, atraumatic, no facial asymmetry is seen. Neck is supple with no masses felt. CARDIOVASCULAR: Regular rate and rhythm. ABDOMEN: Nontender, nondistended. Extremities showed no edema or clubbing. NEUROLOGICAL EXAM: The patient is alert, aware and oriented x3. Speech and language are normal. Strength is 5 minus out of 5 on the right and 5 out of 5 on the left. Sensory exam was normal to light touch in all 4 extremities. No pronator drift is seen. No facial asymmetry is noticed on cranial nerve testing. No seizure-like activity is seen. IMPRESSION: 1. Syncopal spell. 2. Mild encephalopathy. 3. Shortness of breath. 4. Anemia. 5. History of ischemic stroke. 6. Chronic pain syndrome. RECOMMENDATION: The patient did suffer a syncopal episode with no seizure-like activity described. I reviewed his CT scan of the brain which showed no acute findings. The patient appears to be at his baseline at this time. His mild right hemiparesis is chronic and due to his old stroke. Continue aspirin daily, which he is on at home. Continue IV hydration as tolerated. It is unclear if he was having shortness of breath at home as well, but he is currently on oxygen supplementation. Given this, and given his extensive cardiac history, I do recommend a pulmonology and cardiology consultation. I will order a carotid Doppler and a fasting lipid panel. Continue neuro checks. I will continue to follow with you. Further recommendations to follow. Thank you, Dr. Gold for allowing me to participate in the care of your patient. If you have any questions, please feel free to contact me. MMODL / IJN: [id number] /
--- NOTE | 2017-08-01 11:08 | P.CRDCN ---
History of Present Illness Consult date: 08/01/17 Requesting physician: Cedric Gold Consult reason: sycope Chief complaint: Syncope History of present illness: This is a 66-year-old gentleman with history of coronary artery disease and multiple stent placements, he follows with Dr. Pickens in the office. Patient also has history of prior CVA, diabetes, hypertension, hyperlipidemia, psoriasis, prostate CA, chronic back pain. History was obtained from the patient and his who is status post bedside. Apparently the patient was lying on the floor in his living room playing with his grandson , his states she was not in the room, but when she returned to the room and found him to be unresponsive with his head back onto the couch. She did attempt to awake him, shortly thereafter, patient did awake. states that he had drooping on one side of his face and was extremely weak in both of his arms. She does state that he was trying to tell her that he did not want the ambulance called, and some of his speech was gibberish. He did not lose bowel or bladder function. CAT scan of the brain was performed which revealed similar findings to prior exam. No acute abnormalities evident. Chest x-ray reveals new central vascular congestion on the background of chronic parenchymal change. Possible infiltrate. EKG shows a normal sinus rhythm with no acute changes. EEG was performed which revealed abnormality consistent with mild encephalopathy. Carotid Doppler study revealed mild plaque without hemodynamically significant stenosis. Blood pressure 142/80 with a heart rate in the 60s to 70s, 95% on room air. White blood cell count 6.5, hemoglobin 13.0 , platelet count 256. Sodium 141, potassium 4.3, BUN 16, creatinine 1.4. Alk phos 151 this morning. Magnesium 1.8. Troponin 0.012. At the time of my examination this morning, patient feels quite sleepy, he denies any dizziness or lightheadedness at present. According to the , patient has had 3 syncopal episodes and does intermittently complain of dizziness and lightheadedness. Past Medical History Past Medical History: Coronary Artery Disease (CAD), Cancer, Chest Pain / Angina , CVA/TIA, Diabetes Mellitus, Hyperlipidemia, Hypertension, Myocardial Infarction ([place]), Osteoarthritis (OA), Pneumonia, Renal Disease, Skin Disorder Additional Past Medical History / Comment(s): lt hand dominant,IDDM type II-has insulin pump-FILLED 07-29-17, neuropathy bilateral legs, prostate cancer with gold seeds implanted, CVA 04/18/16 with R arm/R leg weakness,lt facial droop, chronic low back pain, fx vertebrae L3,4,5 and S1, nephrolithiasis, Chronic renal disease stage III, psoriasis, mild memory problems but much worse after today's event per family at bedside. Last Myocardial Infarction Date:: 2014 History of Any Multi-Drug Resistant Organisms: None Reported Past Surgical History: Heart Catheterization With Stent Additional Past Surgical History / Comment(s): COLONOCOSPY, LUMBAR EPIDURAL INJ , total 4 cardiac stents (2010 1 stent and 2014 3 stents),juventino cataracts/lens implants, colonoscopy, gold seed implants for prostate cancer. Past Anesthesia/Blood Transfusion Reactions: Motion Sickness Additional Past Anesthesia/Blood Transfusion Reaction / Comment(s): CLAUSTERPHOBIC Date of Last Stent Placement:: 2010 Past Psychological History: No Psychological Hx Reported Additional Psychological History / Comment(s): PT LIVES AT HOME WITH HIS KWAN IS INDEPENDANT WITH HIS OWN CARE. USED TO WORK FOR [employer]drives, no home care services, has insulin pump/glucometer Smoking Status: Former smoker Past Alcohol Use History: None Reported Additional Past Alcohol Use History / Comment(s): STARTED SMOKING AROUND AGE 48( 1998) SMOKE A PIPE OR CIGARS 2-3 times a week but quit 04/2016. Past Drug Use History: None Reported - Past Family History Father Family Medical History: Cancer Additional Family Medical History / Comment(s): FATHER HAD BLADDER CANCER AND OF THIS IN HIS 40'S Mother Family Medical History: Cancer, Dementia Additional Family Medical History / Comment(s): UTERINE CANCER. Mother of dementia at the age of 89yrs. Medications and Allergies Home Medications Medication Instructions Recorded Confirmed Type Aspirin 81 mg PO DAILY 01/12/15 07/30/17 History [place]-3 Acid Ethyl Esters [Lovaza] 1 cap PO BID 01/12/15 07/30/17 History Isosorbide Mononitrate ER [Imdur] 30 mg PO DAILY #30 tab.er.24h 01/17/15 Rx Losartan [Cozaar] 50 mg PO DAILY #30 tab 01/17/15 07/30/17 Rx Metoprolol Tartrate [Lopressor] 25 mg PO DAILY #30 tab 01/17/15 07/30/17 Rx Nitroglycerin Sl Tabs [Nitrostat] 0.4 mg SUBLINGUAL Q5M PRN #25 tab 01/17/15 Rx Prasugrel [Effient] 10 mg PO DAILY #30 tab 01/17/15 07/30/17 Rx Gabapentin 800 mg PO BID 04/18/16 07/30/17 History HYDROcodone/APAP 7.5-325MG [[place] 1 tab PO Q6HR PRN 03/14/17 07/30/17 History 7.5-325] Primidone [Mysoline] 150 mg PO HS 03/14/17 07/30/17 History Atorvastatin Calcium [Lipitor] 80 mg PO HS 07/30/17 07/30/17 History Cyclobenzaprine [Flexeril] 10 mg PO HS PRN 07/30/17 07/30/17 History Donepezil [Aricept] 5 mg PO HS 07/30/17 07/30/17 History Ergocalciferol [Vitamin D2] 50,000 unit PO GUERRA 07/30/17 07/30/17 History INSULIN LISPRO (For Pump) [humaLOG 0.01 units SQ-PUMP CONTINUOUS 07/30/17 History (For Pump)] Meclizine [Antivert] 25 mg PO TID PRN 07/30/17 07/30/17 History Memantine HCl [Namenda] 10 mg PO BID 07/30/17 07/30/17 History rOPINIRole HCL [Requip] 0.25 mg PO HS 07/30/17 07/30/17 History rOPINIRole HCL [Requip] 0.5 mg PO QAM 07/30/17 07/30/17 History Allergies Allergy/AdvReac Type Severity Reaction Status Date / Time No Known Allergies Allergy Verified 07/30/17 14:13 Physical Exam Vitals: Vital Signs Temp Pulse Resp BP Pulse Ox 08/01/17 07:44 96.9 F L 69 18 143/85 95 08/01/17 03:01 98.0 F 70 18 146/92 96 08/01/17 03:00 63 16 08/01/17 00:00 98.1 F 63 16 140/80 98 07/31/17 20:00 97.6 F 63 16 132/72 98 07/31/17 16:00 96.9 F L 65 18 116/76 95 07/31/17 11:30 97.6 F 62 20 136/86 94 L Intake and Output 07/31/17 08/01/17 08/01/17 22:59 06:59 14:59 Intake Total 222 120 Balance 222 120 Intake: Oral 222 120 Other: Voiding Method Toilet Toilet Toilet # Voids 3 4 Weight 110.9 kg PHYSICAL EXAMINATION: HEENT: Head is atraumatic, normocephalic. Pupils equal, round. Neck is supple. There is no elevated jugular venous pressure. HEART EXAMINATION: Heart S1, S2 normal. No murmur or gallop heard. CHEST EXAMINATION: Lungs are clear with diminished air entry to bilateral bases , fine crackles noted to the bases as well. ABDOMEN: Soft, obese, nontender. Bowel sounds are heard. No organomegaly noted. EXTREMITIES: 2+ peripheral pulses with no evidence of peripheral edema and no calf tenderness noted. NEUROLOGIC patient is awake, alert and oriented -3. . Results 08/01/17 05:50 08/01/17 05:50 Cardiac Enzymes 08/01/17 Range/Units 05:50 AST 19 (17-59) U/L Lipids 07/31/17 Range/Units 06:03 Triglycerides 197 H (<150) mg/dL Cholesterol 133 (<200) mg/dL HDL Cholesterol 27 L (40-60) mg/dL CBC 08/01/17 Range/Units 05:50 WBC 6.5 (3.8-10.6) k/uL RBC 4.53 (4.30-5.90) m/uL Hgb 13.0 (13.0-17.5) gm/dL Hct 39.1 (39.0-53.0) % Plt Count 256 (150-450) k/uL Comprehensive Metabolic Panel 08/01/17 Range/Units 05:50 Sodium 141 (137-145) mmol/L Potassium 4.3 (3.5-5.1) mmol/L Chloride 105 (98-107) mmol/L Carbon Dioxide 26 (22-30) mmol/L BUN 16 (9-20) mg/dL Creatinine 1.41 H (0.66-1.25) mg/dL Glucose 61 L (74-99) mg/dL Calcium 9.6 (8.4-10.2) mg/dL AST 19 (17-59) U/L ALT 33 (21-72) U/L Alkaline Phosphatase 151 H (38-126) U/L Total Protein 5.9 L (6.3-8.2) g/dL Albumin 3.4 L (3.5-5.0) g/dL Current Medications Generic Name Dose Route Start Last Admin Trade Name Freq PRN Reason Stop Dose Admin Hydrocodone Bitart/Acetaminophen 1 each 07/30/17 18:22 08/01/17 02:42 [place] 7.5-325 PO 1 each Q6HR PRN Administration Pain Aspirin 325 mg 07/31/17 12:00 08/01/17 09:15 Aspirin PO 325 mg DAILY PA Administration Atorvastatin Calcium 80 mg 07/30/17 21:00 07/31/17 20:53 Lipitor PO 80 mg HS PA Administration Cyclobenzaprine HCl 10 mg 07/30/17 18:22 Flexeril PO HS PRN Muscle Spasm Donepezil HCl 5 mg 07/30/17 21:00 07/31/17 20:53 Aricept PO 5 mg HS PA Administration Gabapentin 800 mg 07/30/17 21:00 08/01/17 09:15 Neurontin PO 800 mg BID PA Administration Levetiracetam 1,000 mg/ IV 100 mls @ 400 mls/hr 07/30/17 21:00 08/01/17 09:19 Solution IVPB 400 mls/hr Q12HR PA Administration Sodium Chloride 1,000 mls @ 100 mls/hr 07/30/17 15:00 08/01/17 06:33 Saline 0.9% IV Not Given .Q10H PA Insulin Aspart 0 unit 07/31/17 12:52 Novolog SQ DAILY PRN Insulin Pump Replacement Isosorbide Mononitrate 30 mg 07/31/17 09:00 08/01/17 09:15 Imdur PO 30 mg DAILY PA Administration Losartan Potassium 50 mg 07/31/17 09:00 08/01/17 09:16 Cozaar PO 50 mg DAILY PA Administration Meclizine HCl 25 mg 07/30/17 18:22 Antivert PO TID PRN Vertigo Memantine 10 mg 07/30/17 21:00 08/01/17 09:18 Namenda PO 10 mg BID PA Administration Metoprolol Tartrate 25 mg 07/31/17 09:00 08/01/17 09:16 Lopressor PO 25 mg DAILY PA Administration Miscellaneous Information 1 each 07/31/17 12:52 Insulin Pump Active Insulin MISCELLANE ACHS PRN Blood Sugar - High Protocol Miscellaneous Information 1 each 07/31/17 12:52 Insulin Pump Basal Rates MISCELLANE Q6HR PRN Blood Sugar - High Protocol Miscellaneous Information 0 unit 07/31/17 12:52 Insulin Pump Correction Bolus MISCELLANE ACHS PRN Blood Sugar - High Protocol Miscellaneous Information 0 unit 07/31/17 17:30 08/01/17 08:47 Insulin Pump Meal Bolus MISCELLANE 3 unit ACHS PA Administration Protocol Miscellaneous Information 1 each 07/31/17 12:52 Insulin Pump Target Glucose MISCELLANE ACHS PRN Blood Sugar - High Protocol Pantoprazole Sodium 40 mg 07/31/17 07:30 08/01/17 06:36 Protonix PO 40 mg AC-[id number] PA Administration Prasugrel 10 mg 07/31/17 09:00 08/01/17 09:18 Effient PO 10 mg DAILY PA Administration Primidone 150 mg 07/30/17 21:00 07/31/17 20:52 Mysoline PO 150 mg HS PA Administration Ropinirole HCl 0.25 mg 07/30/17 21:00 07/31/17 20:53 Requip PO 0.25 mg HS PA Administration Ropinirole HCl 0.5 mg 07/31/17 09:00 08/01/17 09:19 Requip PO 0.5 mg QAM PA Administration Intake and Output 07/31/17 08/01/17 08/01/17 22:59 06:59 14:59 Intake Total 222 120 Balance 222 120 Intake: Oral 222 120 Other: Voiding Method Toilet Toilet Toilet # Voids 3 4 Weight 110.9 kg 08/01/17 05:50 08/01/17 05:50 EKG Interpretations (text) EKG shows a normal sinus rhythm with no acute changes. Assessment and Plan Plan: Assessment and plan #1 syncope, rule out cardiac causes. #2 history of CVA, rule out TIA or seizures. #3 hypertension #4 hyperlipidemia #5 prior history of smoking, patient quit smoking in 2016 #6 diabetes #7 known history of coronary artery disease with multiple stent placements #8 chronic kidney disease stage III Plan We will obtain an echocardiogram with Doppler study from the office which the patient had recently. We will also continue to monitor for any tachycardia or bradycardia arrhythmias. Check orthostatics. Further recommendations to follow. DNP note has been reviewed, I agree with a documented findings and plan of care. Patient was seen and examined.
[2017-08-01 12:02] LABS: Glucose,Whole Blood 139 mg/dL (75-99)
[2017-08-01] MEDS ORDERED: RX INFO: IV CONTRAST WAS GIVEN 1 EACH MISC MISCELLANE PRN (13:46)
--- NOTE | 2017-08-01 14:08 | P.CNPUL ---
History of Present Illness Consult date: 08/01/17 Requesting physician: Cedric Gold Reason for consult: dyspnea Chief complaint: Altered mental status History of present illness: This is a pleasant 66-year-old gentleman who follows with Dr. Gold as his primary care physician. He has a history of coronary artery disease, diabetes mellitus, bilateral neuropathy, prostate cancer with gold seeds implanted, CVA and April 2016 with right arm and right leg weakness, chronic low back pain, hyperlipidemia, hypertension, osteoarthritis, renal disease. He presented to the emergency room 07/30/2017 after being found on the ground by his family. They felt his left-sided facial droop was worse. He also has a history of dementia and appeared even more altered than usual. He has been seen and evaluated by neurology who felt the patient had a syncopal episode and mild encephalopathy. Computed tomography scan of the brain revealed no acute findings. He did have some complaints of shortness of breath and we are consulted for the same. He is seen today in consultation on the selective care unit. He is presently awake and alert. He is maintaining O2 saturations in the mid 90s on room air. He has been hemodynamically stable. Afebrile. No leukocytosis. Admission chest x-ray revealed new central vascular congestion on the background of chronic principal changes. There is also some prominent left hilar developing infiltrate. The patient currently denies any shortness of breath, cough or congestion. His family is present and states he does not appear short of breath to them either. Review of Systems All systems: negative Constitutional: Reports fatigue Past Medical History Past Medical History: Coronary Artery Disease (CAD), Cancer, Chest Pain / Angina , CVA/TIA, Diabetes Mellitus, Hyperlipidemia, Hypertension, Myocardial Infarction ([place]), Osteoarthritis (OA), Pneumonia, Renal Disease, Skin Disorder Additional Past Medical History / Comment(s): lt hand dominant,IDDM type II-has insulin pump-FILLED 07-29-17, neuropathy bilateral legs, prostate cancer with gold seeds implanted, CVA 04/18/16 with R arm/R leg weakness,lt facial droop, chronic low back pain, fx vertebrae L3,4,5 and S1, nephrolithiasis, Chronic renal disease stage III, psoriasis, mild memory problems but much worse after today's event per family at bedside. Last Myocardial Infarction Date:: 2014 History of Any Multi-Drug Resistant Organisms: None Reported Past Surgical History: Heart Catheterization With Stent Additional Past Surgical History / Comment(s): COLONOCOSPY, LUMBAR EPIDURAL INJ , total 4 cardiac stents (2010 1 stent and 2014 3 stents),juventino cataracts/lens implants, colonoscopy, gold seed implants for prostate cancer. Past Anesthesia/Blood Transfusion Reactions: Motion Sickness Additional Past Anesthesia/Blood Transfusion Reaction / Comment(s): CLAUSTERPHOBIC Date of Last Stent Placement:: 2010 Past Psychological History: No Psychological Hx Reported Additional Psychological History / Comment(s): PT LIVES AT HOME WITH HIS KWAN IS INDEPENDANT WITH HIS OWN CARE. USED TO WORK FOR [employer]drives, no home care services, has insulin pump/glucometer Smoking Status: Former smoker Past Alcohol Use History: None Reported Additional Past Alcohol Use History / Comment(s): STARTED SMOKING AROUND AGE 48( 1998) SMOKE A PIPE OR CIGARS 2-3 times a week but quit 04/2016. Past Drug Use History: None Reported - Past Family History Father Family Medical History: Cancer Additional Family Medical History / Comment(s): FATHER HAD BLADDER CANCER AND OF THIS IN HIS 40'S Mother Family Medical History: Cancer, Dementia Additional Family Medical History / Comment(s): UTERINE CANCER. Mother of dementia at the age of 89yrs. Medications and Allergies Home Medications Medication Instructions Recorded Confirmed Type Aspirin 81 mg PO DAILY 01/12/15 07/30/17 History [place]-3 Acid Ethyl Esters [Lovaza] 1 cap PO BID 01/12/15 07/30/17 History Isosorbide Mononitrate ER [Imdur] 30 mg PO DAILY #30 tab.er.24h 01/17/15 Rx Losartan [Cozaar] 50 mg PO DAILY #30 tab 01/17/15 07/30/17 Rx Metoprolol Tartrate [Lopressor] 25 mg PO DAILY #30 tab 01/17/15 07/30/17 Rx Nitroglycerin Sl Tabs [Nitrostat] 0.4 mg SUBLINGUAL Q5M PRN #25 tab 01/17/15 Rx Prasugrel [Effient] 10 mg PO DAILY #30 tab 01/17/15 07/30/17 Rx Gabapentin 800 mg PO BID 04/18/16 07/30/17 History HYDROcodone/APAP 7.5-325MG [[place] 1 tab PO Q6HR PRN 03/14/17 07/30/17 History 7.5-325] Primidone [Mysoline] 150 mg PO HS 03/14/17 07/30/17 History Atorvastatin Calcium [Lipitor] 80 mg PO HS 07/30/17 07/30/17 History Cyclobenzaprine [Flexeril] 10 mg PO HS PRN 07/30/17 07/30/17 History Donepezil [Aricept] 5 mg PO HS 07/30/17 07/30/17 History Ergocalciferol [Vitamin D2] 50,000 unit PO GUERRA 07/30/17 07/30/17 History INSULIN LISPRO (For Pump) [humaLOG 0.01 units SQ-PUMP CONTINUOUS 07/30/17 History (For Pump)] Meclizine [Antivert] 25 mg PO TID PRN 07/30/17 07/30/17 History Memantine HCl [Namenda] 10 mg PO BID 07/30/17 07/30/17 History rOPINIRole HCL [Requip] 0.25 mg PO HS 07/30/17 07/30/17 History rOPINIRole HCL [Requip] 0.5 mg PO QAM 07/30/17 07/30/17 History Allergies Allergy/AdvReac Type Severity Reaction Status Date / Time No Known Allergies Allergy Verified 07/30/17 14:13 Physical Exam Vitals: Vital Signs Temp Pulse Resp BP Pulse Ox 08/01/17 11:46 126/80 08/01/17 11:43 117/74 08/01/17 11:18 96.5 F L 61 16 127/78 94 L 08/01/17 07:44 96.9 F L 69 18 143/85 95 08/01/17 03:01 98.0 F 70 18 146/92 96 08/01/17 03:00 63 16 08/01/17 00:00 98.1 F 63 16 140/80 98 07/31/17 20:00 97.6 F 63 16 132/72 98 07/31/17 16:00 96.9 F L 65 18 116/76 95 Intake and Output 07/31/17 08/01/17 08/01/17 22:59 06:59 14:59 Intake Total 222 120 Balance 222 120 Intake: Oral 222 120 Other: Voiding Method Toilet Toilet Toilet # Voids 3 4 Weight 110.9 kg GENERAL EXAM: Alert, active, comfortable in no apparent distress. HEAD: Normocephalic. EYES: Normal reaction of pupils, equal size. NOSE: Clear with pink turbinates. THROAT: No erythema or exudates. NECK: No masses, no JVD. CHEST: No chest wall deformity. LUNGS: Equal air entry with crackles in the bilateral posterior bases. CVS: S1 and S2 normal with no audible murmur, regular rhythm. ABDOMEN: No hepatosplenomegaly, normal bowel sounds, no guarding or rigidity. SPINE: No scoliosis or deformity SKIN: No rashes CENTRAL NERVOUS SYSTEM: No focal deficits, tone is normal in all 4 extremities. EXTREMITIES: There is no peripheral edema. No clubbing, no cyanosis. Peripheral pulses are intact. Results - Laboratory Findings CBC and BMP: 08/01/17 05:50 08/01/17 05:50 PT/INR, D-dimer PT 9.5 sec (9.0-12.0) 07/30/17 13:25 INR 1.0 (<1.2) 07/30/17 13:25 D-Dimer 0.55 mg/L FEU (<0.60) 08/01/17 11:30 Abnormal lab findings: Abnormal Labs 07/30/17 07/30/17 07/30/17 13:23 13:25 13:25 Hgb 12.3 L Hct 37.7 L Lymphocytes # 0.5 L APTT Sodium 136 L Potassium 5.5 H Creatinine 1.40 H Glucose 311 H POC Glucose (mg/dL) 319 H Hemoglobin A1c AST Alkaline Phosphatase 190 H Total Protein 6.1 L Albumin Triglycerides HDL Cholesterol Urine Glucose (UA) 07/30/17 07/30/17 07/30/17 13:25 13:25 15:36 Hgb Hct Lymphocytes # APTT 18.2 L Sodium Potassium Creatinine Glucose POC Glucose (mg/dL) 272 H Hemoglobin A1c 7.4 H AST Alkaline Phosphatase Total Protein Albumin Triglycerides HDL Cholesterol Urine Glucose (UA) 07/30/17 07/30/17 07/30/17 16:21 17:26 20:53 Hgb Hct Lymphocytes # APTT Sodium Potassium Creatinine Glucose POC Glucose (mg/dL) 237 H 325 H Hemoglobin A1c AST Alkaline Phosphatase Total Protein Albumin Triglycerides HDL Cholesterol Urine Glucose (UA) 3+ H 07/31/17 07/31/17 07/31/17 06:03 06:03 06:03 Hgb 12.5 L Hct 37.2 L Lymphocytes # 0.6 L APTT Sodium Potassium Creatinine 1.32 H Glucose 222 H POC Glucose (mg/dL) Hemoglobin A1c AST 16 L Alkaline Phosphatase 166 H Total Protein 5.7 L Albumin 3.2 L Triglycerides 197 H HDL Cholesterol 27 L Urine Glucose (UA) 07/31/17 07/31/17 07/31/17 06:05 11:42 16:39 Hgb Hct Lymphocytes # APTT Sodium Potassium Creatinine Glucose POC Glucose (mg/dL) 218 H 263 H 471 H Hemoglobin A1c AST Alkaline Phosphatase Total Protein Albumin Triglycerides HDL Cholesterol Urine Glucose (UA) 07/31/17 08/01/17 08/01/17 18:16 05:50 05:50 Hgb Hct Lymphocytes # 0.8 L APTT Sodium Potassium Creatinine 1.41 H Glucose 61 L POC Glucose (mg/dL) 138 H Hemoglobin A1c AST Alkaline Phosphatase 151 H Total Protein 5.9 L Albumin 3.4 L Triglycerides HDL Cholesterol Urine Glucose (UA) 08/01/17 08/01/17 08/01/17 06:03 07:54 11:38 Hgb Hct Lymphocytes # APTT Sodium Potassium Creatinine Glucose POC Glucose (mg/dL) 65 L 169 H 139 H Hemoglobin A1c AST Alkaline Phosphatase Total Protein Albumin Triglycerides HDL Cholesterol Urine Glucose (UA) - Diagnostic Findings Chest x-ray: image reviewed Assessment and Plan Assessment: Impression: #1 Syncopal episode of unclear etiology. #2 Dyspnea with suspected pulmonary hypertension. #3 History of chronic tobacco dependence however quit in 2015. #4 Hypertension. #5 Hyperlipidemia. #6 Diabetes mellitus with peripheral neuropathy. #7 Coronary artery disease with previous stent placements. #8 Chronic kidney disease. #9 Previous history of CVA. Plan: The patient was seen and evaluated by Dr. Gaxiola. His chest x-ray and labs were reviewed. We'll go ahead and order a computed tomography scan of the chest to rule out any significant pulmonary hypertension or any other significant abnormalities. No current pulmonary complaints. He does have a significant smoking history. He would benefit from a follow-up in our office for full pulmonary function testing to evaluate for any chronic obstructive pulmonary disease and make recommendations for her maintenance medications if needed. Add bronchodilators as needed. We will continue to follow and make further recommendations based on his clinical status. I, the cosigning physician, performed a history & physical examination of the patient. Lungs sounds have faint crackles in the bilateral posterior bases. Diminished. Maintaining good O2 saturations in the 90s on room air. I discussed the assessment and plan of care with my nurse practitioner, Vidhi Herrera. I attest to the above note as dictated by her. Time with Patient: Greater than 30
--- NOTE | 2017-08-01 15:35 | P.PN ---
Subjective Progress Note Date: 08/01/17 Principal diagnosis: Syncopal episode Is a pleasant 66-year-old male known to our practice being followed by the neurology service for a syncopal episode. He was brought to [facility] emergency room after being found unconscious by his . He denies having any prodromal symptoms. No seizure-like activity was described, and he had no sphincter incontinence or tongue biting. When he regained consciousness there was no confusion. Computed tomography scan of the brain on arrival showed generalized atrophy and small vessel ischemic disease. There was no acute intracranial abnormality. The study was unchanged from his 03/06/2017 study. He did have some renal insufficiency, hyperglycemia and reduce protein and albumin on his initial blood work. His EEG did show evidence of mild encephalopathy and there were no epileptiform discharges. He denies any similar symptoms since his admission. At the time of my exam he is up and walking around his room in no acute distress. He is being evaluated by cardiology and pulmonology for his known history of pulmonary and cardiac diagnoses. Objective - Vital Signs Vital signs: Vital Signs Temp 96.5 F L 08/01/17 11:18 Pulse 61 08/01/17 11:18 Resp 16 08/01/17 11:18 BP 126/80 08/01/17 11:46 Pulse Ox 94 L 08/01/17 11:18 Intake & Output 07/31/17 08/01/17 08/01/17 18:59 06:59 18:59 Intake Total 1484 342 Balance 1484 342 Weight 110.2 kg 110.9 kg Intake: Intake, IV Titration 800 Amount Sodium Chloride 0.9% 1, 800 000 ml @ 100 mls/hr IV . Q10H [facility] Rx#:[id number] Oral 684 342 Other: Voiding Method Toilet Toilet Toilet # Voids 3 4 - Constitutional General appearance: Present: cooperative, no acute distress - EENT Eyes: Present: EOMI, PERRLA. Absent: abnormal pupil, ptosis ENT: Present: hearing grossly normal - Neck Neck: Present: normal ROM. Absent: rigidity - Respiratory Respiratory: negative: prolonged expiration, prolonged inspiration - Cardiovascular Rhythm: regular - Gastrointestinal General gastrointestinal: Absent: distended, tenderness - Neurologic Neurologic Comment(s): He is alert awake and oriented 3. Speech-language are normal. Strength is 5 minus out of 5 on the right and 5 out of 5 on the left. This is from his previous stroke. There is no sensory deficit in any extremity. There is no pronator drift. There is mild left-sided corner of the mouth droop which is been present since his stroke. No seizure-like activities are seen. - Labs CBC & Chem 7: 08/01/17 05:50 08/01/17 05:50 Labs: Abnormal Lab Results - Last 24 Hours (Table) 07/31/17 07/31/17 07/31/17 Range/Units 06:03 16:39 18:16 Lymphocytes # (1.0-4.8) k/uL Creatinine (0.66-1.25) mg/dL Glucose (74-99) mg/dL POC Glucose (mg/dL) 471 H 138 H (75-99) mg/dL Alkaline Phosphatase (38-126) U/L Total Protein (6.3-8.2) g/dL Albumin (3.5-5.0) g/dL Triglycerides 197 H (<150) mg/dL HDL Cholesterol 27 L (40-60) mg/dL 08/01/17 08/01/17 08/01/17 Range/Units 05:50 05:50 06:03 Lymphocytes # 0.8 L (1.0-4.8) k/uL Creatinine 1.41 H (0.66-1.25) mg/dL Glucose 61 L (74-99) mg/dL POC Glucose (mg/dL) 65 L (75-99) mg/dL Alkaline Phosphatase 151 H (38-126) U/L Total Protein 5.9 L (6.3-8.2) g/dL Albumin 3.4 L (3.5-5.0) g/dL Triglycerides (<150) mg/dL HDL Cholesterol (40-60) mg/dL 08/01/17 08/01/17 Range/Units 07:54 11:38 Lymphocytes # (1.0-4.8) k/uL Creatinine (0.66-1.25) mg/dL Glucose (74-99) mg/dL POC Glucose (mg/dL) 169 H 139 H (75-99) mg/dL Alkaline Phosphatase (38-126) U/L Total Protein (6.3-8.2) g/dL Albumin (3.5-5.0) g/dL Triglycerides (<150) mg/dL HDL Cholesterol (40-60) mg/dL Microbiology - Last 24 Hours (Table) 07/30/17 17:26 Urine Culture - Final Urine,Clean Catch Assessment and Plan (1) Acute metabolic encephalopathy Current Visit: Yes Status: Suspected Code(s): G93.41 - METABOLIC ENCEPHALOPATHY SNOMED Code(s): 92346638 (2) Shortness of breath Current Visit: Yes Status: Chronic Code(s): R06.02 - SHORTNESS OF BREATH SNOMED Code(s): 389546078 (3) Anemia Current Visit: Yes Status: Acute Code(s): D64.9 - ANEMIA, UNSPECIFIED SNOMED Code(s): 523205800 (4) History of stroke Current Visit: Yes Status: Chronic Code(s): Z86.73 - PRSNL HX OF TIA (TIA), AND CEREB INFRC W/O RESID DEFICITS SNOMED Code(s): 895104308 (5) Syncope Current Visit: Yes Status: Resolved Code(s): R55 - SYNCOPE AND COLLAPSE SNOMED Code(s): 021541777 (6) PADMINI (acute kidney injury) Current Visit: No Status: Acute Code(s): N17.9 - ACUTE KIDNEY FAILURE, UNSPECIFIED SNOMED Code(s): 00086179 (7) CAD (coronary artery disease) Current Visit: No Status: Chronic Code(s): I25.10 - ATHSCL HEART DISEASE OF [place] CORONARY ARTERY W/O ANG PCTRS SNOMED Code(s): 61221808 (8) Diabetes Current Visit: No Status: Chronic Code(s): E11.9 - TYPE 2 DIABETES MELLITUS WITHOUT COMPLICATIONS SNOMED Code(s): 45704830 (9) HTN (hypertension) Current Visit: No Status: Chronic Code(s): I10 - ESSENTIAL (PRIMARY) HYPERTENSION SNOMED Code(s): 99492151 (10) Hyperlipemia Current Visit: No Status: Chronic Code(s): E78.5 - HYPERLIPIDEMIA, UNSPECIFIED SNOMED Code(s): 14382075 Plan: The patient did have a syncopal episode. As above the CT of the brain showed no acute intracranial abnormalities. He is back to his baseline neurologically at this time. Continue further workup for his shortness of breath and known cardiovascular disease. His carotid Doppler showed no hemodynamically significant stenosis. Continue to control and normalize renal function, hyperglycemia, and anemia. We can be consulted on as-needed basis for any neurological concerns. Otherwise we'll follow him up in outpatient setting. I have performed a history and physical on the above patient. I have reviewed the above note, and agree.
[2017-08-01 17:20] LABS: Glucose,Whole Blood 96 mg/dL (75-99)
--- NOTE | 2017-08-01 17:35 | CT ---
EXAMINATION TYPE: CT chest w con DATE OF EXAM: 08/01/2017 COMPARISON: NONE HISTORY: Pulmonary hypertension. CT DLP: 811 mGycm Automated exposure control for dose reduction was used. CONTRAST: CT scan of the chest is performed with IV Contrast, patient injected with 80 mL of Visipaque 320. FINDINGS: There is an irregular 4 cm low-density area of masslike consolidation in the left lower lobe in the s uperior segment. There is some patchy mild linear density at the lung bases. There is no pleural effu maryjane. Heart size is normal. There is increased soft tissue density in the subcarinal region. There ar e multiple paratracheal lymph nodes that measure up to 2.3 cm. Thoracic aorta is intact. There is queta e atherosclerotic vascular calcification. There are multiple enlarged bilateral bronchial lymph nodes that measure up to 1.5 cm. I see no bony destructive process.. IMPRESSION: There is mediastinal and bronchial adenopathy. There is low density masslike consolidati on in the superior segment left lower lobe. Tumor is possible. Follow-up is recommended. Mild patchy subsegmental atelectasis at the lung bases. Atherosclerotic vascular disease.
--- NOTE | 2017-08-01 19:02 | P.PN ---
Subjective Progress Note Date: 08/01/17 66-year-old male who presented to the emergency room with a chief complaint of syncope per the patients . The patient states he was laying on the ground playing with his grandkids and the next thing he remembers was his over him saying he "passed out". Patient states he did not feel lightheaded or dizzy. Denies shortness of breath or cough. Denies chest pain or pressure. The patients states she was calling his name multiple times and he was not responding. When he became arousable, she states he was very confused and she noticed he had a left facial drip. She asked him to raise both of his arms and he was unable to hold his arms out straight in front of him. The patient has a history of coronary artery disease with previous stent placement, CVA, diabetes mellitus with an insulin pump, neuropathy to bilateral lower extremities, prostate cancer, hyperlipidemia, hypertension, myocardial infarction, osteoarthritis, chronic kidney disease, and chronic low back pain. Patient is a former cigarette smoker. Chest x-ray: New central vascular congestion on background of chronic parenchymal changes present. Finding slightly more prominent left hilar level and developing infiltrate at this level was not entirely excluded. CT of the brain: No acute abnormalities identified. Mild inflammatory changes in the mastoid air cells on the right. Age-related changes of atrophy and probable chronic small vessel ischemia. Laboratory data: WBC 6.1. Hemoglobin 12.3. Platelet count 263. Sodium 136. Potassium 5.5. BUN 16. Creatinine 1.40. GFR 51. Glucose 311. Magnesium 1.8. Troponins negative 1 Lactic acid: 1.4 Urinalysis reveals: 3+ glucose, but otherwise unremarkable The patient was admitted to the hospital under the care of Dr. Gold. Consultations were placed to neurology. 08/01/2017 Patient was evaluated by neurology yesterday. Patient underwent EEG which did not show evidence of seizure activity but did show evidence of mild encephalopathy. Bilateral carotid Doppler was performed revealing mild plaque without hemodynamically significant stenosis. Cardiology and pulmonary were consulted per neurology yesterday. Patient is currently utilizing his own insulin pump. Facial droop has resolved. Remains on Keppra. Vital signs have been stable. BP 143/85. Afebrile. Objective - Vital Signs Vital signs: Vital Signs Temp 96.5 F L 08/01/17 11:18 Pulse 61 08/01/17 11:18 Resp 16 08/01/17 11:18 BP 126/80 08/01/17 11:46 Pulse Ox 94 L 08/01/17 11:18 Intake & Output 07/31/17 08/01/17 08/01/17 18:59 06:59 18:59 Intake Total 1484 120 Balance 1484 120 Weight 110.2 kg 110.9 kg Intake: Intake, IV Titration 800 Amount Sodium Chloride 0.9% 1, 800 000 ml @ 100 mls/hr IV . Q10H [facility] Rx#:[id number] Oral 684 120 Other: Voiding Method Toilet Toilet Toilet # Voids 3 4 - Exam GENERAL: This is a 66-year-old male in no apparent distress at the time of examination. Pleasant and cooperative. HEENT: Head is atraumatic, normocephalic. Pupils are equal, round, and reactive to light. Sclerae anicteric. Conjunctivae are clear. Mucus membranes of the mouth are moist. Neck is supple. RESPIRATORY: Clear to ausculation. No wheezes, rales, or rhonchi. No use of accessory muscles. Patient maintaining oxygen saturation greater than 92%. No chest wall tenderness is noted on palpation or with deep breathing. CARDIOVASCULAR: Regular rate and rhythm. S1 and S2 noted. No JVD noted. No S3 or S4 noted. GASTROINTESTINAL: Obese. No distention noted. Abdomen soft and round. Normal active bowel sounds auscultated x 4 quadrants. No pain or tenderness noted upon palpation. INTEGUMENTARY: No cyanosis. No jaundice. No rashes noted. No cellulitis noted. EXTREMITIES: 2+ peripheral pulses. No evidence of peripheral edema. No calf tenderness noted. NEUROLOGIC: Cranial nerves II-XII intact. motor strength equal bilaterally. No obvious deficits noted. PSYCHIATRIC: Awake, alert, and oriented X 3. Appropriate affect. - Labs CBC & Chem 7: 08/01/17 05:50 08/01/17 05:50 Labs: Abnormal Lab Results - Last 24 Hours (Table) 07/31/17 07/31/17 07/31/17 Range/Units 06:03 16:39 18:16 Lymphocytes # (1.0-4.8) k/uL Creatinine (0.66-1.25) mg/dL Glucose (74-99) mg/dL POC Glucose (mg/dL) 471 H 138 H (75-99) mg/dL Alkaline Phosphatase (38-126) U/L Total Protein (6.3-8.2) g/dL Albumin (3.5-5.0) g/dL Triglycerides 197 H (<150) mg/dL HDL Cholesterol 27 L (40-60) mg/dL 08/01/17 08/01/17 08/01/17 Range/Units 05:50 05:50 06:03 Lymphocytes # 0.8 L (1.0-4.8) k/uL Creatinine 1.41 H (0.66-1.25) mg/dL Glucose 61 L (74-99) mg/dL POC Glucose (mg/dL) 65 L (75-99) mg/dL Alkaline Phosphatase 151 H (38-126) U/L Total Protein 5.9 L (6.3-8.2) g/dL Albumin 3.4 L (3.5-5.0) g/dL Triglycerides (<150) mg/dL HDL Cholesterol (40-60) mg/dL 08/01/17 08/01/17 Range/Units 07:54 11:38 Lymphocytes # (1.0-4.8) k/uL Creatinine (0.66-1.25) mg/dL Glucose (74-99) mg/dL POC Glucose (mg/dL) 169 H 139 H (75-99) mg/dL Alkaline Phosphatase (38-126) U/L Total Protein (6.3-8.2) g/dL Albumin (3.5-5.0) g/dL Triglycerides (<150) mg/dL HDL Cholesterol (40-60) mg/dL Microbiology - Last 24 Hours (Table) 07/30/17 17:26 Urine Culture - Final Urine,Clean Catch Assessment and Plan Plan: ASSESSMENT: Complaints of passing out, confusion, and left facial droop per , syncopal episode per neurology History of cerebrovascular accident Diabetes mellitus, type II, utilizing insulin pump, hemoglobin A1c 7.4% Hyperglycemia, related to uncontrolled diabetes mellitus Coronary artery disease with previous myocardial infarction and stent placement in 2010 Chronic kidney disease, stage III, GFR 51 Hyperkalemia, resolved Hypertension Hyperlipidemia Osteoarthritis Obesity: BMI 34.9 History of nicotine dependence, in remission, patient quit smoking cigarettes in 2015 PLAN: Neurology on consult. Appreciate recommendations and input Cardiology and pulmonary on consult. 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 Signing provider agrees with the documented findings, assessment, and plan of care.
[2017-08-01] MEDS: PRIMIDONE 50 MG TAB PO SCH (20:54)
[2017-08-01] MEDS: ATORVASTATIN 80 MG TAB PO SCH (20:54)
[2017-08-01] MEDS: DONEPEZIL 5 MG TAB PO SCH (20:54)
[2017-08-01 21:46] LABS: Glucose,Whole Blood 181 mg/dL (75-99)
[2017-08-02] MEDS: HYDROcodone/APAP 7.5-325MG 1 EACH TAB PO PRN (01:31)
[2017-08-02 06:15] LABS: Glucose,Whole Blood 200 mg/dL (75-99)
[2017-08-02] MEDS: PANTOPRAZOLE 40 MG TABLET PO SCH (06:58)
[2017-08-02] MEDS: INSULIN PUMP MEAL BOLUS 1 UNIT MISC MISCELLANE SCH ×2 (07:11→12:57)
[2017-08-02] MEDS: INSULIN ASPART 100 UNIT/ML 1 ML 10 ML VIAL SQ SCH ×2 (07:15→12:06)
[2017-08-02] MEDS: levETIRAcetam IV 1,000 MG in SALINE 1 100ML.BAG IVPB SCH (08:02)
[2017-08-02] MEDS: ASPIRIN 325 MG TAB PO SCH (08:03)
[2017-08-02] MEDS: LOSARTAN 50 MG TAB PO SCH (08:03)
[2017-08-02] MEDS: ISOSORBIDE MONONITRATE ER 30 MG TAB.ER.24H PO SCH (08:03)
[2017-08-02] MEDS: METOPROLOL TARTRATE 25 MG TAB PO SCH (08:03)
[2017-08-02] MEDS: GABAPENTIN 400 MG CAP PO SCH (08:03)
[2017-08-02] MEDS: PRASUGREL 10 MG TAB PO SCH (08:03)
[2017-08-02] MEDS: MEMANTINE 10 MG TAB PO SCH (08:03)
[2017-08-02 11:50] LABS: Glucose,Whole Blood 260 mg/dL (75-99)
--- NOTE | 2017-08-02 12:35 | P.PN ---
Subjective Progress Note Date: 08/02/17 Principal diagnosis: Altered mental status of unclear etiology This is a pleasant 66-year-old gentleman who follows with Dr. Gold as his primary care physician. He has a history of coronary artery disease, diabetes mellitus, bilateral neuropathy, prostate cancer with gold seeds implanted, CVA and April 2016 with right arm and right leg weakness, chronic low back pain, hyperlipidemia, hypertension, osteoarthritis, renal disease. He presented to the emergency room 07/30/2017 after being found on the ground by his family. They felt his left-sided facial droop was worse. He also has a history of dementia and appeared even more altered than usual. He has been seen and evaluated by neurology who felt the patient had a syncopal episode and mild encephalopathy. Computed tomography scan of the brain revealed no acute findings. He did have some complaints of shortness of breath and we are consulted for the same. He is seen today in consultation on the selective care unit. He is presently awake and alert. He is maintaining O2 saturations in the mid 90s on room air. He has been hemodynamically stable. Afebrile. No leukocytosis. Admission chest x-ray revealed new central vascular congestion on the background of chronic principal changes. There is also some prominent left hilar developing infiltrate. The patient currently denies any shortness of breath, cough or congestion. His family is present and states he does not appear short of breath to them either. The patient is seen again today 08/02/2017 in follow-up on the regular medical floor. He is awake and alert in no acute distress. He denies any shortness of breath, cough or congestion. No chills or night sweats. Maintaining good O2 saturations in the mid 90s on room air. He's been afebrile. Hemodynamically stable. Carotid Dopplers revealed mild plaque without hemodynamically significant stenosis. He is anxious to go home. The computed tomography scan of the chest yesterday did reveal evidence of mediastinal and bronchial adenopathy. There is a low-density mass like consolidation in the superior segment of the left lower lobe. Objective - Vital Signs Vital signs: Vital Signs Temp 97.8 F 08/02/17 09:08 Pulse 67 08/02/17 09:08 Resp 16 08/02/17 09:08 BP 134/79 08/02/17 09:08 Pulse Ox 96 08/02/17 09:08 Intake & Output 08/01/17 08/02/17 08/02/17 18:59 06:59 18:59 Intake Total 822 340 240 Balance 822 340 240 Weight 109.9 kg Intake: Intake, IV Titration 100 Amount levETIRAcetam IV 1,000 mg 100 In Saline 1 100ml.bag @ 400 mls/hr IVPB Q12HR [facility] Rx#:[id number] Oral 822 240 240 Other: Voiding Method Toilet Toilet Toilet # Voids 2 1 - Exam GENERAL EXAM: Alert, active, comfortable in no apparent distress. HEAD: Normocephalic. EYES: Normal reaction of pupils, equal size. NOSE: Clear with pink turbinates. THROAT: No erythema or exudates. NECK: No masses, no JVD. CHEST: No chest wall deformity. LUNGS: Equal air entry with crackles in the left posterior base. CVS: S1 and S2 normal with no audible murmur, regular rhythm. ABDOMEN: No hepatosplenomegaly, normal bowel sounds, no guarding or rigidity. SPINE: No scoliosis or deformity SKIN: No rashes CENTRAL NERVOUS SYSTEM: No focal deficits, tone is normal in all 4 extremities. EXTREMITIES: There is no peripheral edema. No clubbing, no cyanosis. Peripheral pulses are intact. - Labs CBC & Chem 7: 08/01/17 05:50 08/01/17 05:50 Labs: Abnormal Lab Results - Last 24 Hours (Table) 08/01/17 08/02/17 08/02/17 Range/Units 21:15 06:12 11:32 POC Glucose (mg/dL) 181 H 200 H 260 H (75-99) mg/dL Assessment and Plan Assessment: Impression: #1 Syncopal episode of unclear etiology. #2 Dyspnea with suspected pulmonary hypertension. Chest x-ray revealed some left hilar fullness. Computed tomography scan revealed mediastinal and bronchial adenopathy. There is a low-density masslike consolidation in the superior segment of the left lower lobe. Malignancy is not excluded. #3 History of chronic tobacco dependence however quit in 2016. #4 Hypertension. #5 Hyperlipidemia. #6 Diabetes mellitus with peripheral neuropathy. #7 Coronary artery disease with previous stent placements. #8 Chronic kidney disease. #9 Previous history of CVA. Plan: The patient was seen and evaluated by Dr. Gaxiola. His computed tomography scan was reviewed. There is concern regarding possible malignancy of the masslike consolidation in the superior segment left lower lobe. The patient has no pulmonary complaints. No hemoptysis. He is cleared for discharge from the pulmonary standpoint. We did discuss the need for follow-up in the outpatient setting including PET scan and possible bronchoscopy with biopsy. The patient and his are agreeable for an outpatient workup. He does have a significant smoking history. He would benefit from a follow-up in our office for full pulmonary function testing to evaluate for any chronic obstructive pulmonary disease and make recommendations for her maintenance medications if needed. We will continue to follow and make further recommendations based on his clinical status. I, the cosigning physician, performed a history & physical examination of the patient. Lungs sounds have faint crackles in the bilateral posterior bases, more so on the left. Diminished. Maintaining good O2 saturations in the 90s on room air. I discussed the assessment and plan of care with my nurse practitioner, Vidhi Herrera. I attest to the above note as dictated by her.
--- NOTE | 2017-08-02 13:54 | P.PN ---
Subjective Progress Note Date: 08/02/17 Mr. Paez is a pleasant 66-year-old male who follows regularly with Dr. Pickens in the office. He is seen and examined today on the surgical floor. he denies any symptoms of chest pain, shortness of breath, dizziness, palpitations, nausea, vomiting or diaphoresis. Telemetry tracings have been unremarkable. CT of the chest was done yesterday reveals mediastinal and bronchial adenopathy with low density mass-like consolidation in left lower lobe , follow-up recommended. Pulmonary was consulted and outpatient work-up is recommended. Objective - Vital Signs Vital signs: Vital Signs Temp 97.8 F 08/02/17 09:08 Pulse 67 08/02/17 09:08 Resp 16 08/02/17 09:08 BP 134/79 08/02/17 09:08 Pulse Ox 96 08/02/17 09:08 Intake & Output 08/01/17 08/02/17 08/02/17 18:59 06:59 18:59 Intake Total 822 340 240 Balance 822 340 240 Weight 109.9 kg Intake: Intake, IV Titration 100 Amount levETIRAcetam IV 1,000 mg 100 In Saline 1 100ml.bag @ 400 mls/hr IVPB Q12HR [facility] Rx#:[id number] Oral 822 240 240 Other: Voiding Method Toilet Toilet Toilet # Voids 2 1 - Exam Blood pressure 134/79 heart rate 67 afebrile GENERAL: Well-appearing, well-nourished and in no acute distress. NECK: Supple without JVD or thyromegaly. LUNGS: Breath sounds clear to auscultation bilaterally. Diminished. Respirations equal and unlabored. No wheezes, rales or rhonchi. HEART: Regular rate and rhythm without murmurs, rubs or gallops. S1 and S2 heard. EXTREMITIES: Normal range of motion, no edema. No clubbing or cyanosis. Peripheral pulses intact and strong. - Labs CBC & Chem 7: 08/01/17 05:50 08/01/17 05:50 Labs: Abnormal Lab Results - Last 24 Hours (Table) 08/01/17 08/02/17 08/02/17 Range/Units 21:15 06:12 11:32 POC Glucose (mg/dL) 181 H 200 H 260 H (75-99) mg/dL Assessment and Plan Assessment: ASSESSMENT 1. Syncope, cardiac etiology unlikely at this point. No evidence of arrhythmia. 2. History of CVA 3. Hypertension 4. Dyslipidemia 5. Known history of coronary artery disease with multiple stent placements per Dr. Pickens 6. Diabetes mellitus 7. Chronic kidney disease stage III 8. History of tobacco abuse, quit in 2016 9. Dementia PLAN Telemetry tracings have been unremarkable there is no evidence of arrhythmia. From a cardiac perspective he is stable no further cardiac workup indicated at this time. Continue with medical management. Follow-up appointment with Dr. Pickens in 2-3 weeks after discharge. Nurse Practitioner note has been reviewed, I agree with a documented findings and plan of care. Patient was seen and examined.
[2017-08-02 15:13] VITALS: BP 119/86; PULSE 74; RESP 18; TEMP 97.3
--- NOTE | 2017-08-02 15:55 | DS ---
DISCHARGE SUMMARY DATE OF ADMISSION: 07/30/2017. DISCHARGE DATE: 08/02/2017. ADMISSION DIAGNOSES: 1. Acute syncope with left facial droop, rule out seizure versus transient ischemic attack. 2. History of cerebrovascular accident. 3. Diabetes mellitus type 2. 4. Altered mental status. 5. Hyperglycemia without acidosis and uncontrolled diabetes. 6. Coronary artery disease with previous myocardial infarction. 7. Hyperkalemia. 8. Hypertension. 9. Hyperlipidemia. DISCHARGE DIAGNOSES: 1. Acute syncope, cerebrovascular accident is ruled out, possible transient ischemic attack. 2. Seizure disorder is ruled out. 3. Diabetes mellitus type 2, using insulin pump with uncontrolled, clinically improved now. 4. Coronary artery disease. 5. Hyperkalemia, resolved. 6. Hypertension. 7. Hyperlipidemia. 8. Mediastinitis and bronchial lymphadenopathy. 9. Left lower lobe lung mass. BRIEF HISTORY: This patient this was a 66-year-old male patient who presented to the ED with a complaint of syncope. Most of the history was provided by the patient's , who found the patient lying on the ground. The patient just remembers his telling him that he had passed out. He denied feeling lightheaded or dizzy. According to the patient, when patient was arousable he was very confused. He did have some facial droop and was unable to hold his arm out straight in front of him. PAST MEDICAL HISTORY: 1. Coronary artery disease. 2. History of CVA/TIA. 3. Diabetes mellitus on insulin pump. 4. Hypertension. 5. Hyperlipidemia. 6. Osteoarthritis. 7. Chronic kidney disease stage 3. HOME MEDICATIONS: 1. Aspirin 81 mg daily. 2. Lovaza 1 capsule b.i.d. 3. Imdur 30 mg daily. 4. Losartan 50 mg daily. 5. Metoprolol 25 mg daily. 6. Effient 10 mg daily. 7. Neurontin 800 mg b.i.d. 8. Sterling 1 tab q.6 hours p.r.n. 9. Mysoline 150 mg q.h.s. 10.Lipitor 80 mg q.h.s. 11.Flexeril 10 mg q.h.s. p.r.n. 12.Aricept 5 mg p.o. q.h.s. 13.Vitamin D 50,000 units monthly. 14.Insulin lispro 0.01 units subcu per insulin pump. 15.Antivert 25 mg p.o. t.i.d. 16.Namenda 10 mg b.i.d. 17.Requip 0.25 mg p.o. q.h.s. and 0.5 mg p.o. q.a.m. PHYSICAL EXAMINATION: On admission, patient was alert and oriented to place and person, in no acute distress. Vital signs at the time of admission: Temperature 97.9, pulse 61, respiration 20, blood pressure 176/85, O2 saturation 95%. HEENT: Atraumatic, normocephalic. Pupils equal and reactive to light. Extraocular movements intact. Buccal mucosa moist. NECK: Supple. No goiter or lymphadenopathy. JVD is negative. No carotid bruit heard. LUNGS: Clear to auscultate. No rales, rhonchi, or wheezes. Heart was regular rate and rhythm without any murmurs or gallop rhythm. ABDOMEN: Soft, obese, nontender, nondistended. Bowel sounds positive. EXTREMITIES: No edema or clubbing or cyanosis. Pulses were palpable 2+. NEUROLOGICAL EXAMINATION: Cranial nerves 2-12 grossly intact. No gross motor or sensory deficit. The patient was alert and oriented x2. PSYCHIATRIC EXAMINATION: Patient had an appropriate affect and mood, appropriate judgment. LABS ON ADMISSION: CBC: White blood count of 4.9, hemoglobin 12.5, hematocrit 37.2, and platelet count of 254. Chemical profile: Sodium 139, potassium 4.4, chloride 103, bicarb 26, BUN 14, creatinine 1.3, glucose 222. BRIEF HOSPITAL COURSE: The patient was admitted to telemetry. The patient was started on IV fluids, strict I's and O's, renal and electrolyte monitoring. The patient was started on neuro checks. Neurology consultation was done. Patient was recommended to undergo EEG, which did show encephalopathy but no seizure activity. The patient did have a consult the simulation educator for more for improved hyperglycemia control. Cardiology and also pulmonary consultation was done. Patient had a CT scan done which was unremarkable, but a chest x-ray did show some vascular congestion and also pulmonary hypertension and the patient was seen by Pulmonary. CT scan of the chest was ordered to rule out significant pulmonary hypertension. Patient also underwent carotid Doppler studies and this study was unremarkable. CT of the chest was ordered by Pulmonary Medicine, which did show mediastinal and bronchial adenopathy with masslike consolidation in the superior segment of the left lower lobe, possible tumor. Pulmonary recommended further workup with PET scan as an outpatient and no further workup in the hospital. Cardiology did not feel any need for any cardiology testing and was recommended to continue all current medications. He was then discharged home in a stable condition with a plan to continue all current medications. Follow up with Cardiology and Pulmonary and Neurology Service as an outpatient. DISCHARGE MEDICATIONS: 1. Aspirin 81 mg p.o. daily. 2. Lovaza 1 capsule b.i.d. 3. Imdur 30 mg daily. 4. Losartan 50 mg daily. 5. Metoprolol 50 25 mg daily. 6. Nitroglycerin sublingual 0.4 mg tablet q.5 p.r.n. 7. Effient 10 mg daily. 8. Neurontin 800 mg b.i.d. 9. Sterling 7.5 mg 1 q.6 hours p.r.n. 10.Mysoline 150 mg q.h.s. 11.Requip 0.25 mg q.h.s. 12.Insulin pump per recommendation. 13.Vitamin D2 04527 units p.o. every Saturday. 14.Requip 0.5 mg p.o. q.a.m. and 0.25 mg q.h.s. 15.Namenda 10 mg q.h.s. 16.Flexeril 10 mg q.h.s. p.r.n. 17.Lipitor 80 mg p.o. q.h.s. 18.Aricept 5 mg p.o. q.h.s. 19.Meclizine 25 mg p.o. t.i.d. p.r.n. 20.The patient was started on IV Keppra while in the hospital for suspicion of seizure which was ruled out and will not continue Keppra upon discharge. Further recommendations after patient sees Neurology as an outpatient. MMODL / IJN: [id number] /
== END 2017-08-02 15:50 | disposition home or self-care (01) | DRG 69 ==
LOC: EC 13:07 → 6SEL 14:55 → 3SUR 08-02 08:43
PROVIDERS: ADMIT Family Medicine; ATTEND Family Medicine
DX: G45.9 Transient cerebral ischemic attack, unspecified (principal); J98.51 Mediastinitis; G93.41 Metabolic encephalopathy; N17.9 Acute kidney failure, unspecified; I69.951 Hemiplegia and hemiparesis following unspecified cerebrovascular disease affecting right dominant side; E11.22 Type 2 diabetes mellitus with diabetic chronic kidney disease; E11.42 Type 2 diabetes mellitus with diabetic polyneuropathy; I27.20 Pulmonary hypertension, unspecified; E11.65 Type 2 diabetes mellitus with hyperglycemia; E87.5 Hyperkalemia; F03.90 Unspecified dementia, unspecified severity, without behavioral disturbance, psychotic disturbance, mood disturbance, and anxiety; N18.3 Chronic kidney disease, stage 3 (moderate); D64.9 Anemia, unspecified; E66.9 Obesity, unspecified; E78.5 Hyperlipidemia, unspecified; F17.201 Nicotine dependence, unspecified, in remission; R29.701 NIHSS score 1; F40.240 Claustrophobia; G25.0 Essential tremor; G25.81 Restless legs syndrome; G89.4 Chronic pain syndrome; I12.9 Hypertensive chronic kidney disease with stage 1 through stage 4 chronic kidney disease, or unspecified chronic kidney disease; I25.10 Atherosclerotic heart disease of native coronary artery without angina pectoris; I25.2 Old myocardial infarction; M19.90 Unspecified osteoarthritis, unspecified site; L40.9 Psoriasis, unspecified; M54.5 Low back pain; R06.00 Dyspnea, unspecified; R91.8 Other nonspecific abnormal finding of lung field; R59.0 Localized enlarged lymph nodes; Z68.34 Body mass index [BMI] 34.0-34.9, adult; Z79.4 Long term (current) use of insulin; Z79.82 Long term (current) use of aspirin; Z79.899 Other long term (current) drug therapy; Z96.41 Presence of insulin pump (external) (internal); Z95.5 Presence of coronary angioplasty implant and graft; Z85.46 Personal history of malignant neoplasm of prostate
CPT/HCPCS: 36415; 70450; 71046; 71260; 80053; 80061; 81003; 82550; 82553; 83036; 83605; 83735; 83880; 84100; 84484; 85025; 85379; 85610; 85730; 87086; 93005; 93880; 94760; 95819; 96361; 96374; 99285

== ENCOUNTER 2017-08-09 12:08 | Observation (INO) | payer MEDICARE, OTHER ==
[2017-08-09 12:39] LABS: Glucose,Whole Blood 198 mg/dL (75-99)
[2017-08-09 14:41] LABS: Basophils # (A) 0.1 k/uL (0-0.2); Basophils % (A) 1 %; Eosinophils # (A) 0.1 k/uL (0-0.7); Eosinophils % (A) 2 %; HCT 38.2 % (39.0-53.0); HGB 12.7 gm/dL (13.0-17.5); Lymphocytes # (A) 0.5 k/uL (1.0-4.8); Lymphocytes % (A) 8 %; MCH 28.6 pg (25.0-35.0); MCHC 33.3 g/dL (31.0-37.0); Mean Platelet Volume 7.3; Monocytes # (A) 0.4 k/uL (0-1.0); Monocytes % (A) 6 %; Neutrophils % (A) 82 %; Platelet Count 227 k/uL (150-450); RBC 4.44 m/uL (4.30-5.90)
[2017-08-09 14:48] LABS: ALT 30 U/L (21-72); AST 19 U/L (17-59); Albumin 3.3 g/dL (3.5-5.0); Alkaline Phosphatase 139 U/L (38-126); Anion Gap 13 mmol/L; Blood Urea Nitrogen 14 mg/dL (9-20); Calcium 9.2 mg/dL (8.4-10.2); Carbon Dioxide 25 mmol/L (22-30); Chloride 103 mmol/L (98-107); Glucose 191 mg/dL (74-99); Potassium 4.6 mmol/L (3.5-5.1); Sodium 141 mmol/L (137-145); Total Bilirubin 0.5 mg/dL (0.2-1.3); Total Protein 5.7 g/dL (6.3-8.2)
--- NOTE | 2017-08-09 14:55 | ED ---
General Adult HPI - General Chief complaint: Seizure Stated complaint: Syncope Time Seen by Provider: 08/09/17 13:35 Source: patient, family, EMS, RN notes reviewed, old records reviewed Mode of arrival: EMS Limitations: no limitations - History of Present Illness Initial comments: Chief complaint and history of present illness this is a 66-year-old male brought emergency room and also from his doctor's office. While the doctor's office for follow-up after having had a TIA and seizures one week ago the patient had a seizure in the office. Last approximately 1 minute. Reported to be tonic-clonic by . patient's reports postictal phase of being fatigued afterwards. At this time the patient reports he feels great. No focal or lateralizing findings no headache. This past week patient did well at home. He's been on primidone 50 mg 3 times a day since his last seizure. He has had history of TIAs and CVAs in the past. - Related Data Home Medications Medication Instructions Recorded Confirmed Aspirin 81 mg PO DAILY 01/12/15 08/09/17 [place]-3 Acid Ethyl Esters [Lovaza] 1 cap PO BID 01/12/15 08/09/17 Gabapentin 800 mg PO BID 04/18/16 08/09/17 HYDROcodone/APAP 7.5-325MG [[place] 1 tab PO BID PRN 03/14/17 08/09/17 7.5-325] Primidone [Mysoline] 150 mg PO HS 03/14/17 08/09/17 Atorvastatin Calcium [Lipitor] 80 mg PO HS 07/30/17 08/09/17 Cyclobenzaprine [Flexeril] 10 mg PO HS PRN 07/30/17 08/09/17 Donepezil [Aricept] 5 mg PO HS 07/30/17 08/09/17 Ergocalciferol [Vitamin D2 50,000 unit PO MO 07/30/17 08/09/17 (DRISDOL)] INSULIN LISPRO (For Pump) [humaLOG See Protocol SQ-PUMP CONTINUOUS 07/30/17 (For Pump)] Meclizine [Antivert] 25 mg PO DAILY PRN 07/30/17 08/09/17 Memantine HCl [Namenda] 10 mg PO BID 07/30/17 08/09/17 rOPINIRole HCL [Requip] 0.25 mg PO HS 07/30/17 08/09/17 rOPINIRole HCL [Requip] 0.5 mg PO QAM 07/30/17 08/09/17 Previous Rx's Medication Instructions Recorded Isosorbide Mononitrate ER [Imdur] 30 mg PO DAILY #30 tab.er.24h 01/17/15 Losartan [Cozaar] 50 mg PO DAILY #30 tab 01/17/15 Metoprolol Tartrate [Lopressor] 25 mg PO DAILY #30 tab 01/17/15 Nitroglycerin Sl Tabs [Nitrostat] 0.4 mg SUBLINGUAL Q5M PRN #25 tab 01/17/15 Prasugrel [Effient] 10 mg PO DAILY #30 tab 01/17/15 Allergies Allergy/AdvReac Type Severity Reaction Status Date / Time No Known Allergies Allergy Verified 08/09/17 12:36 Review of Systems ROS Statement: Those systems with pertinent positive or pertinent negative responses have been documented in the HPI. review of systems currently no complaint of visual acuity changes no headache no stiff neck no chest pain or palpitations no shortness of breath no GI/ problems currently no neuro deficits. All systems were reviewed. Past medical problems significant for TIAs, CVAs, angina, diabetes mellitus, hyperlipidemia, hypertension, previous LA, osteoarthritis, pneumonia, chronic renal disease and skin disorder. Patient has an insulin pump. Surgeries colonoscopy at heart catheterization. Seizure disorder recently diagnosed approximately 8 days ago. Currently not a smoker denies drinking. Denies ever having had heavy alcohol use. ROS Other: All systems not noted in ROS Statement are negative. Past Medical History Past Medical History: Coronary Artery Disease (CAD), Cancer, Chest Pain / Angina , CVA/TIA, Diabetes Mellitus, Hyperlipidemia, Hypertension, Myocardial Infarction (LA), Osteoarthritis (OA), Pneumonia, Renal Disease, Skin Disorder Additional Past Medical History / Comment(s): -has insulin pump-FILLED 07-29-17, neuropathy bilateral legs, prostate cancer with gold seeds implanted, CVA with R arm/R leg weakness,lt facial droop, chronic low back pain, fx vertebrae L3,4,5 and S1, nephrolithiasis, Chronic renal disease stage III, psoriasis, mild memory problems Last Myocardial Infarction Date:: 2014 History of Any Multi-Drug Resistant Organisms: None Reported Past Surgical History: Heart Catheterization With Stent Additional Past Surgical History / Comment(s): COLONOCOSPY, LUMBAR EPIDURAL INJ , total 4 cardiac stents (2010 1 stent and 2014 3 stents),juventino cataracts/lens implants, colonoscopy, gold seed implants for prostate cancer. Past Anesthesia/Blood Transfusion Reactions: Motion Sickness Additional Past Anesthesia/Blood Transfusion Reaction / Comment(s): CLAUSTERPHOBIC Date of Last Stent Placement:: 2010 Past Psychological History: No Psychological Hx Reported Smoking Status: Former smoker Past Alcohol Use History: None Reported Past Drug Use History: None Reported - Past Family History Father Family Medical History: Cancer Additional Family Medical History / Comment(s): FATHER HAD BLADDER CANCER AND OF THIS IN HIS 40'S Mother Family Medical History: Cancer, Dementia Additional Family Medical History / Comment(s): UTERINE CANCER. Mother of dementia at the age of 89yrs. General Exam - General Exam Comments Initial Comments: General: The patient is awake and alert, in no distress, and does not appear acutely ill. patient arrived via EMS after having had a seizure lasted 1 minute and his doctor's office. Witnessed by and his . Vital signs shows temperature 97.5 pulse 55 respiratory rate 18 pulse ox 97% on 2 L blood pressure 100/57. The patient is on metoprolol. And multiple other medications. Eye: Pupils are equal, round and reactive to light, extra-ocular movements are intact ; there is normal conjunctiva bilaterally. No signs of icterus. history of cataract surgery as well. Ears, nose, mouth and throat: There are moist mucous membranes and no oral lesions. Neck: The neck is supple, there is no tenderness , no carotid bruit. Thyroid not enlarged. Cardiovascular: bradycardic heart rate, 55. Patient is on metoprolol.. No murmur, rub or gallop is appreciated. Respiratory: Lungs are clear to auscultation, respirations are non-labored, breath sounds are equal. No wheezes, stridor, rales, or rhonchi. Gastrointestinal: Soft, non-distended, non-tender abdomen without masses or organomegaly noted. There is no rebound or guarding present. No CVA tenderness. Bowel sounds are unremarkable. Back: There is no tenderness to palpation in the midline. There is no obvious deformity. No rashes noted. Musculoskeletal: Normal ROM, no tenderness, mild peripheral edema. There is no calf tenderness or swelling. Sensation intact. Pulses equal bilaterally 2+. Neurological: CN II-XII intact, There are no obvious motor or sensory deficits. Coordination appears grossly intact. Speech is normal.no focal or lateralizing findings Skin: Skin is warm and dry and no rashes or lesions are noted. Psychiatric: Cooperative, appropriate mood & affect, normal judgment. Limitations: no limitations Course Vital Signs 08/09/17 08/09/17 08/09/17 12:24 12:57 13:33 Temperature 97.5 F L Pulse Rate 57 L 64 55 L Respiratory 18 18 18 Rate Blood Pressure 97/55 116/54 100/57 O2 Sat by Pulse 94 L 98 97 Oximetry 08/09/17 08/09/17 15:00 15:39 Temperature Pulse Rate 60 55 L Respiratory 18 18 Rate Blood Pressure 105/76 113/65 O2 Sat by Pulse 99 98 Oximetry EKG Findings - EKG Comments: EKG Findings:: EKG was done and reviewed at 1221 showing sinus bradycardia rate 56 evidence of old inferior infarct , age undetermined. Rate 56 [place] interval 204 QRS [address] Erwin Medical Decision Making - Medical Decision Making Patient presents emergency room with his after having had a seizure at his doctor's office. He is there for recheck after having had seizures 10 days ago. at which time he spent 3 days a hospital. He was placed on primidone 50 mg 3 times a day at that time.he sees Dr. barclay vital signs stable. EKG showed bradycardic heart rate of 56. The patient's white count 6 hemoglobin 13 hematocrit 38. Potassium 4.6 BUN 14 creatinine 1.2 GFR greater than 60. Glucose 191. the case discussed Dr. Gusman, on-call for Dr. Gold. Patient be admitted to her service for further evaluation for breakthrough seizures. - Lab Data Result diagrams: 08/09/17 12:57 08/09/17 12:57 Lab Results 08/09/17 08/09/17 08/09/17 Range/Units 12:23 12:57 12:57 WBC 6.0 (3.8-10.6) k/uL RBC 4.44 (4.30-5.90) m/uL Hgb 12.7 L (13.0-17.5) gm/dL Hct 38.2 L (39.0-53.0) % MCV 86.0 (80.0-100.0) fL MCH 28.6 (25.0-35.0) pg MCHC 33.3 (31.0-37.0) g/dL RDW 14.0 (11.5-15.5) % Plt Count 227 (150-450) k/uL Neutrophils % 82 % Lymphocytes % 8 % Monocytes % 6 % Eosinophils % 2 % Basophils % 1 % Neutrophils # 5.0 (1.3-7.7) k/uL Lymphocytes # 0.5 L (1.0-4.8) k/uL Monocytes # 0.4 (0-1.0) k/uL Eosinophils # 0.1 (0-0.7) k/uL Basophils # 0.1 (0-0.2) k/uL Sodium 141 (137-145) mmol/L Potassium 4.6 (3.5-5.1) mmol/L Chloride 103 (98-107) mmol/L Carbon Dioxide 25 (22-30) mmol/L Anion Gap 13 mmol/L BUN 14 (9-20) mg/dL Creatinine 1.20 (0.66-1.25) mg/dL Est GFR (MDRD) Af Amer >60 (>60 ml/min/1.73 sqM) Est GFR (MDRD) Non-Af >60 (>60 ml/min/1.73 sqM) Glucose 191 H (74-99) mg/dL POC Glucose (mg/dL) 198 H (75-99) mg/dL POC Glu Hoe Worker ID Sendy Rodriguez Calcium 9.2 (8.4-10.2) mg/dL Total Bilirubin 0.5 (0.2-1.3) mg/dL AST 19 (17-59) U/L ALT 30 (21-72) U/L Alkaline Phosphatase 139 H (38-126) U/L Total Protein 5.7 L (6.3-8.2) g/dL Albumin 3.3 L (3.5-5.0) g/dL 08/09/17 Range/Units 15:14 WBC (3.8-10.6) k/uL RBC (4.30-5.90) m/uL Hgb (13.0-17.5) gm/dL Hct (39.0-53.0) % MCV (80.0-100.0) fL MCH (25.0-35.0) pg MCHC (31.0-37.0) g/dL RDW (11.5-15.5) % Plt Count (150-450) k/uL Neutrophils % % Lymphocytes % % Monocytes % % Eosinophils % % Basophils % % Neutrophils # (1.3-7.7) k/uL Lymphocytes # (1.0-4.8) k/uL Monocytes # (0-1.0) k/uL Eosinophils # (0-0.7) k/uL Basophils # (0-0.2) k/uL Sodium (137-145) mmol/L Potassium (3.5-5.1) mmol/L Chloride (98-107) mmol/L Carbon Dioxide (22-30) mmol/L Anion Gap mmol/L BUN (9-20) mg/dL Creatinine (0.66-1.25) mg/dL Est GFR (MDRD) Af Amer (>60 ml/min/1.73 sqM) Est GFR (MDRD) Non-Af (>60 ml/min/1.73 sqM) Glucose (74-99) mg/dL POC Glucose (mg/dL) 205 H (75-99) mg/dL POC Glu Hoe Worker ID Keke Lion Calcium (8.4-10.2) mg/dL Total Bilirubin (0.2-1.3) mg/dL AST (17-59) U/L ALT (21-72) U/L Alkaline Phosphatase (38-126) U/L Total Protein (6.3-8.2) g/dL Albumin (3.5-5.0) g/dL Disposition Clinical Impression: Breakthrough seizure Disposition: ADMITTED IP TO THIS HOSP Condition: Fair Instructions: Recurrent Seizures in Adults (ED) Referrals: Cedric Gold DO [Primary Care Provider] - 1-2 days
[2017-08-09 15:21] LABS: Glucose,Whole Blood 205 mg/dL (75-99)
[2017-08-09] MEDS ORDERED: NALOXONE 0.4 MG/ML 1 ML VIAL IV PRN (16:12)
[2017-08-09] MEDS ORDERED: CYCLOBENZAPRINE 10 MG TAB PO PRN (16:17)
[2017-08-09] MEDS ORDERED: MECLIZINE 25 MG TAB PO PRN (16:17)
[2017-08-09] MEDS: INSULIN ASPART 100 UNIT/ML 1 ML 10 ML VIAL SQ SCH ×2 (18:19→21:11)
[2017-08-09] MEDS: SODIUM CHLORIDE 0.9% 1,000 ML IV SCH (18:22)
--- NOTE | 2017-08-09 20:24 | HP ---
HISTORY AND PHYSICAL CHIEF COMPLAINT: Seizure disorder. HISTORY OF PRESENT ILLNESS: This 66-year-old gentleman with a past medical history of multiple medical problems, being followed by Dr. Gold in the outpatient setting, had multiple episodes of syncope. The patient was recently admitted to [facility] with possible seizure versus TIA. Patient also has history of CVA, diabetes mellitus, CAD and myocardial infarction. There is no history of any fever, rigor or chills. No history of headache, loss of consciousness, seizures. PAST MEDICAL HISTORY: 1. History of CAD. 2. History of CVA, TIA. 3. Diabetes mellitus. 4. Hypertension. 5. Hyperlipidemia. 6. History of myocardial infarction. HOME MEDICATIONS: 1. Namenda 10 mg p.o. b.i.d. 2. Aricept 5 mg at bedtime. 3. Requip 0.5 mg each morning and 0.25 mg at bedtime. 4. Mysoline 150 mg at bedtime. 5. Antivert 25 mg daily p.r.n. 6. Drisdol 50,000 p.o. Saturday. 7. Flexeril 10 mg at bedtime p.r.n. 8. Lovaza 1 capsule p.o. b.i.d. 9. Nitrostat 0.4 mg sublingually p.r.n. 10.Lopressor 25 mg p.o. daily. 11.Imdur 30 mg p.o. daily. 12.[place] 7.5 b.i.d. p.r.n. 13.Effient 10 mg p.o. daily. 14.Cozaar 50 mg p.o. daily. 15.Lispro. Accu-Cheks before meals and at bedtime. 16.Gabapentin 800 mg p.o. b.i.d. 17.Lipitor 80 mg at bedtime. 18.Aspirin 81 mg p.o. daily. ALLERGIES: NONE. FAMILY HISTORY: History of bladder cancer in the family. SOCIAL HISTORY: Previous history of smoking. Occasional alcohol intake. REVIEW OF SYSTEMS: ENT: Diminished hearing. Diminished vision. CARDIOVASCULAR SYSTEM: No angina, palpitations. RESPIRATORY SYSTEM: As mentioned earlier. GI: No nausea, vomiting. : No dysuria or retention. NERVOUS SYSTEM: No numbness, weakness. ALLERGY/IMMUNOLOGY: No asthma, hayfever. MUSCULOSKELETAL: As mentioned earlier. HEMATOLOGY/ONCOLOGY: No history of anemia. ENDOCRINE: Diabetes mellitus. CONSTITUTIONAL: As mentioned earlier. DERMATOLOGY: Negative. RHEUMATOLOGY: Negative. PSYCHIATRY: As mentioned earlier. PHYSICAL EXAMINATION: Patient is alert, oriented x3. Pulse 86, blood pressure 142/81, respiration 18, temperature 97.6, pulse ox 96% on 2 L. HEENT: Conjunctivae normal. Oral mucosa moist. NECK: No jugular venous distention. No carotid bruit. No lymph node enlargement. CARDIOVASCULAR SYSTEM: S1, S2 muffled. No S3. No S4. RESPIRATORY SYSTEM: Breath sounds diminished at the bases. A few sac rhonchi. No crackles. ABDOMEN: Soft, non-tender. No mass palpable. LEGS: No edema. No swelling. NERVOUS SYSTEM: Higher functions as mentioned earlier. Moves all 4 limbs. No focal motor or sensory deficit. LYMPHATICS: No lymph node palpable in neck, axillae or groin. SKIN: No ulcer, rash, bleeding. LABS: WBC 6, hemoglobin 12.7. ASSESSMENT: 1. Generalized tonic-clonic seizures for evaluation. 2. Diabetes mellitus, type 2. 3. History of cerebrovascular accident, transient ischemic attack. 4. History of coronary artery disease, stent. 5. Hypertension. 6. Hyperlipidemia. 7. History of myocardial infarction. 8. History of pneumonia. 9. History of diabetes mellitus, type 2, on insulin pump. 10.History of bilateral peripheral neuropathy. 11.History of degenerative joint disease. 12.History of nephrolithiasis. 13.History of chronic kidney disease, stage III. 14.History of claustrophobia. RECOMMENDATIONS AND DISCUSSION: In this 66-year-old gentleman who presented with multiple complex medical issues, we will monitor the patient closely, continue the current medications, continue with symptomatic treatment. I would recommend continuing to monitor. Otherwise, telemetry. Resume the home medications. IV fluids. I would also recommend orthopedic evaluation. The overall prognosis is guarded because of the multiple complex medical issues. Further recommendations to follow. MMODL / IJN: [id number] /
[2017-08-09 20:35] LABS: Glucose,Whole Blood 307 mg/dL (75-99)
[2017-08-09] MEDS: MEMANTINE 10 MG TAB PO SCH (20:58)
[2017-08-09] MEDS: GABAPENTIN 400 MG CAP PO SCH (20:58)
[2017-08-09] MEDS: HEPARIN SODIUM,PORCINE 5,000 UNIT/ML 1 ML VIAL SQ SCH (20:58)
[2017-08-09] MEDS: HYDROcodone/APAP 7.5-325MG 1 EACH TAB PO PRN (21:00)
[2017-08-09] MEDS ORDERED: DONEPEZIL 5 MG TAB PO SCH (21:00)
[2017-08-09] MEDS ORDERED: ATORVASTATIN 80 MG TAB PO SCH (21:00)
[2017-08-09] MEDS ORDERED: PRIMIDONE 50 MG TAB PO SCH (21:00)
[2017-08-10 07:02] LABS: Glucose,Whole Blood 231 mg/dL (75-99)
[2017-08-10] MEDS: HEPARIN SODIUM,PORCINE 5,000 UNIT/ML 1 ML VIAL SQ SCH (07:35)
[2017-08-10] MEDS: MEMANTINE 10 MG TAB PO SCH (07:37)
[2017-08-10] MEDS: GABAPENTIN 400 MG CAP PO SCH (07:37)
[2017-08-10] MEDS: HYDROcodone/APAP 7.5-325MG 1 EACH TAB PO PRN (07:37)
[2017-08-10] MEDS: INSULIN ASPART 100 UNIT/ML 1 ML 10 ML VIAL SQ SCH ×2 (07:38→12:52)
[2017-08-10 07:49] LABS: Basophils # (A) 0.1 k/uL (0-0.2); Basophils % (A) 1 %; Eosinophils # (A) 0.1 k/uL (0-0.7); Eosinophils % (A) 2 %; HCT 38.6 % (39.0-53.0); HGB 12.8 gm/dL (13.0-17.5); Lymphocytes # (A) 0.7 k/uL (1.0-4.8); Lymphocytes % (A) 13 %; MCH 27.9 pg (25.0-35.0); MCHC 33.1 g/dL (31.0-37.0); MCV 84.3 fL (80.0-100.0); Mean Platelet Volume 7.2; Monocytes # (A) 0.4 k/uL (0-1.0); Monocytes % (A) 7 %; Neutrophils # (A) 3.6 k/uL (1.3-7.7); Neutrophils % (A) 74 %; Platelet Count 219 k/uL (150-450); RBC 4.58 m/uL (4.30-5.90); RDW 13.8 % (11.5-15.5); WBC 4.9 k/uL (3.8-10.6)
[2017-08-10 08:23] LABS: Anion Gap 11 mmol/L; Blood Urea Nitrogen 16 mg/dL (9-20); Calcium 9.4 mg/dL (8.4-10.2); Carbon Dioxide 24 mmol/L (22-30); Chloride 103 mmol/L (98-107); Glucose 226 mg/dL (74-99); Potassium 4.6 mmol/L (3.5-5.1); Sodium 138 mmol/L (137-145)
[2017-08-10] MEDS ORDERED: METOPROLOL TARTRATE 25 MG TAB PO SCH (09:00)
[2017-08-10] MEDS ORDERED: ASPIRIN 81 MG PO SCH (09:00)
[2017-08-10] MEDS ORDERED: PRASUGREL 10 MG TAB PO SCH (09:00)
[2017-08-10] MEDS ORDERED: ISOSORBIDE MONONITRATE ER 30 MG TAB.ER.24H PO SCH (09:00)
[2017-08-10] MEDS ORDERED: LOSARTAN 50 MG TAB PO SCH (09:00)
[2017-08-10 11:31] LABS: Glucose,Whole Blood 253 mg/dL (75-99)
[2017-08-10] MEDS ORDERED: ACETAMINOPHEN TAB 325 MG TAB PO PRN (12:01)
--- NOTE | 2017-08-10 15:28 | P.CNNES ---
History of Present Illness Consult date: 08/10/17 Requesting physician: Cedric Gold Reason for Consult: Seizure History of Present Illness: Patient is a pleasant 66-year-old male who is being evaluated by the neurology service on 08/10/2017 per the request of Dr. Cedric Gold for seizures. Patient was seen in the hospital approximately 2 weeks ago with syncopal episode/TIA. Patient had a workup done including a CT of the brain which was negative for any contributing etiology. Patient had an EEG done which was normal. Patient does have history of CVA, diabetes mellitus, CAD, and myocardial infarction. Patient was in the office with Dr. Gold is a follow-up hospital visit, and had a seizure in the office. There were no focal or lateralizing symptoms. Patient denies speech or swallow difficulty. Patient was sent to [facility] for further evaluation. Vitals were stable on admission. There were no critical labs found on admission. At the time of my evaluation, patient is resting comfortably in bed and appears to be in no acute distress. Review of Systems REVIEW OF SYSTEMS: Otherwise unremarkable and noncontributory. Past Medical History Past Medical History: Coronary Artery Disease (CAD), Cancer, Chest Pain / Angina , CVA/TIA, Diabetes Mellitus, Hyperlipidemia, Hypertension, Myocardial Infarction ([place]), Osteoarthritis (OA), Pneumonia, Renal Disease, Skin Disorder Additional Past Medical History / Comment(s): -has insulin pump-FILLED 07-29-17, neuropathy bilateral legs, prostate cancer with gold seeds implanted, CVA with R arm/R leg weakness,lt facial droop, chronic low back pain, fx vertebrae L3,4,5 and S1, nephrolithiasis, Chronic renal disease stage III, psoriasis, mild memory problems Last Myocardial Infarction Date:: 2014 History of Any Multi-Drug Resistant Organisms: None Reported Past Surgical History: Heart Catheterization With Stent Additional Past Surgical History / Comment(s): COLONOCOSPY, LUMBAR EPIDURAL INJ , total 4 cardiac stents (2010 1 stent and 2014 3 stents),juventino cataracts/lens implants, colonoscopy, gold seed implants for prostate cancer. Past Anesthesia/Blood Transfusion Reactions: Motion Sickness Additional Past Anesthesia/Blood Transfusion Reaction / Comment(s): CLAUSTERPHOBIC Date of Last Stent Placement:: 2010 Smoking Status: Former smoker - Past Family History Father Family Medical History: Cancer Additional Family Medical History / Comment(s): FATHER HAD BLADDER CANCER AND OF THIS IN HIS 40'S Mother Family Medical History: Cancer, Dementia Additional Family Medical History / Comment(s): UTERINE CANCER. Mother of dementia at the age of 89yrs. Medications and Allergies Home Medications Medication Instructions Recorded Confirmed Type Aspirin 81 mg PO DAILY 01/12/15 08/09/17 History [place]-3 Acid Ethyl Esters [Lovaza] 1 cap PO BID 01/12/15 08/09/17 History Isosorbide Mononitrate ER [Imdur] 30 mg PO DAILY #30 tab.er.24h 01/17/15 Rx Losartan [Cozaar] 50 mg PO DAILY #30 tab 01/17/15 08/09/17 Rx Metoprolol Tartrate [Lopressor] 25 mg PO DAILY #30 tab 01/17/15 08/09/17 Rx Nitroglycerin Sl Tabs [Nitrostat] 0.4 mg SUBLINGUAL Q5M PRN #25 tab 01/17/15 Rx Prasugrel [Effient] 10 mg PO DAILY #30 tab 01/17/15 08/09/17 Rx Gabapentin 800 mg PO BID 04/18/16 08/09/17 History HYDROcodone/APAP 7.5-325MG [[place] 1 tab PO BID PRN 03/14/17 08/09/17 History 7.5-325] Primidone [Mysoline] 150 mg PO HS 03/14/17 08/09/17 History Atorvastatin Calcium [Lipitor] 80 mg PO HS 07/30/17 08/09/17 History Cyclobenzaprine [Flexeril] 10 mg PO HS PRN 07/30/17 08/09/17 History Donepezil [Aricept] 5 mg PO HS 07/30/17 08/09/17 History Ergocalciferol [Vitamin D2 50,000 unit PO MO 07/30/17 08/09/17 History (DRISDOL)] INSULIN LISPRO (For Pump) [humaLOG See Protocol SQ-PUMP CONTINUOUS 07/30/17 History (For Pump)] Meclizine [Antivert] 25 mg PO DAILY PRN 07/30/17 08/09/17 History Memantine HCl [Namenda] 10 mg PO BID 07/30/17 08/09/17 History rOPINIRole HCL [Requip] 0.25 mg PO HS 07/30/17 08/09/17 History rOPINIRole HCL [Requip] 0.5 mg PO QAM 07/30/17 08/09/17 History Allergies Allergy/AdvReac Type Severity Reaction Status Date / Time No Known Allergies Allergy Verified 08/09/17 12:36 Physical Examination - Vital Signs Vital Signs: Vital Signs Temp Pulse Pulse Pulse Resp BP BP 08/10/17 12:00 97.5 F L 65 18 136/76 08/10/17 08:00 97.9 F 67 16 151/85 08/10/17 04:00 98.0 F 68 16 152/80 08/09/17 23:42 97.5 F L 80 16 132/88 08/09/17 23:08 73 17 08/09/17 20:00 76 17 08/09/17 19:52 98.0 F 77 17 129/64 08/09/17 17:44 97.6 F 67 18 142/81 08/09/17 17:03 98.3 F 65 18 121/69 08/09/17 15:39 55 L 18 113/65 Pulse Ox 08/10/17 12:00 94 L 08/10/17 08:00 93 L 08/10/17 04:00 95 08/09/17 23:42 95 08/09/17 23:08 08/09/17 20:00 08/09/17 19:52 98 08/09/17 17:44 96 08/09/17 17:03 98 08/09/17 15:39 98 Intake and Output 08/10/17 08/10/17 08/10/17 06:59 14:59 22:59 Other: Voiding Method Toilet Toilet Urinal Urinal # Voids 3 PHYSICAL EXAM: GENERAL APPEARANCE: Patient is a well-developed, male who appears to be in no acute distress. HEENT: Normocephalic, atraumatic, no facial asymmetry is seen. Neck is supple with no masses felt. CARDIOVASCULAR: Regular rate and rhythm. ABDOMEN: Nontender, nondistended. EXTREMITIES: Show no edema or clubbing. NEUROLOGICAL EXAM: Patient is awake, alert, and oriented 3. Speech and language are normal. Strength is 5-/5 in right upper extremity and full in all other extremities. Sensory exam to light touch is normal in all 4 extremities. No facial asymmetry is seen on cranial nerve testing. No tremors or seizure- like activity noted. Results - Laboratory Findings CBC and BMP: 08/10/17 06:21 08/10/17 06:21 Abnormal Lab Findings: Abnormal Labs 08/09/17 08/09/17 08/09/17 12:23 12:57 12:57 Hgb 12.7 L Hct 38.2 L Lymphocytes # 0.5 L Glucose 191 H POC Glucose (mg/dL) 198 H Alkaline Phosphatase 139 H Total Protein 5.7 L Albumin 3.3 L 08/09/17 08/09/17 08/10/17 15:14 20:34 06:21 Hgb 12.8 L Hct 38.6 L Lymphocytes # 0.7 L Glucose POC Glucose (mg/dL) 205 H 307 H Alkaline Phosphatase Total Protein Albumin 08/10/17 08/10/17 08/10/17 06:21 07:00 11:29 Hgb Hct Lymphocytes # Glucose 226 H POC Glucose (mg/dL) 231 H 253 H Alkaline Phosphatase Total Protein Albumin Assessment and Plan Plan: Impression: 1. Seizure disorder 2. Diabetes mellitus 3. CAD 4. Hypertension Recommendation: Patient did suffer a witnessed tonic-clonic seizure. After interviewing the patient and the , it sounds as if patient may have had few episodes of seizure activity at home. Patient had an EEG done and results are pending. I don't believe this is his first seizure, so I will place him on antiepileptic medication. I will start him on Trileptal 300 mg twice a day for 7 days and then 600 mg twice a day. He is to follow up in the office for repeat EEG in 2-3 weeks. It will be decided in the office setting whether patient needs a 72 hour EEG done in the home setting. Patient is reminded under [place] law, there is no driving or operating heavy machinery for a period of 6 months of being seizure-free. Patient is stable from a neurological standpoint for discharge. I performed an examination of the patient and discussed the management with the TOOLING MECHANIC. I have reviewed the TOOLING MECHANIC notes and agree with the findings and plan of care.
[2017-08-10 16:12] VITALS: BP 99/57; PULSE 59; RESP 16; TEMP 98
[2017-08-10] MEDS: SODIUM CHLORIDE 0.9% 1,000 ML IV SCH (16:33)
[2017-08-10] MEDS ORDERED: OXcarbazepine 300 MG TAB PO SCH (21:00)
--- NOTE | 2017-08-10 23:16 | DS ---
DISCHARGE SUMMARY DATE OF SERVICE: 08/10/2017. FINAL DIAGNOSES: 1. Generalized tonic-clonic seizures, improved. 2. Diabetes type 2. 3. History of cerebrovascular accident/transient ischemic attack. 4. History of coronary artery disease stent. 5. Hypertension. 6. Hyperlipidemia. 7. History of myocardial infarction. 8. History of pneumonia. 9. History of diabetes mellitus type 2 on insulin pump. 10.Bilateral peripheral neuropathy. 11.History of degenerative joint disease. 12.History of nephrolithiasis. 13.History of chronic kidney stage 3. 14.History of claustrophobia. DISCHARGE DISPOSITION: The patient is being discharged in stable condition with guarded prognosis. HISTORY OF PRESENT ILLNESS: This 63-year-old gentleman admitted with past medical history of multiple complex medical history, admitted with generalized tonic-clonic seizures. The patient was evaluated by Neurology and Neurology started the patient on Trileptal 300 mg twice daily, 7 days and then to be increased to 600 mg p.o. b.i.d. twice a day. So the patient is being discharged in stable with guarded prognosis. PHYSICAL EXAMINATION: Vital signs stable. Cardiovascular: S1, S2. Abdomen soft, nontender. Nervous system: No focal deficits. DISCHARGE ADVICE AND MEDICATIONS: 1. Diet is cardiac diet. 2. Activity limited until followup. 3. Follow up with Dr. Gold in 1 to 2 days. 4. Followup with Dr. Alford in 1 week. MEDICATIONS ARE: 1. Aspirin 81 mg daily. 2. Lipitor 80 mg q.h.s. 3. Flexeril 10 mg q.h.s. p.r.n. 4. Aricept 5 mg q.h.s. 5. Vitamin D2 50,000 daily. 6. Gabapentin 800 mg p.o. b.i.d. 7. [place] 7.5 b.i.d. p.r.n. 8. Insulin scale. 9. Imdur ER 30 mg p.o. daily. 10.Cozaar 50 mg p.o. daily. 11.Antivert 25 mg p.o. daily. 12.Namenda 10 mg p.o. b.i.d. 13.Lopressor 25 mg p.o. daily. 14.Nitrostat 0.4 mg p.r.n. 15.[place]-3 fatty acids 1 p.o. b.i.d. 16.Trileptal 300 mg p.o. b.i.d. to be adjusted in the outpatient setting. 17.Effient 10 mg p.o. daily. 18.Mysoline 150 mg q.h.s. 19.Requip 0.25 mg q.h.s. 20.Requip 0.5 mg q.a.m. Once again, the patient is being discharged in stable condition with guarded prognosis. MMODL / IJN: [id number] /
--- NOTE | 2017-08-11 14:21 | EEG ---
ELECTROENCEPHALOGRAM REPORT DATE OF SERVICE: 08/10/2017. REASON FOR TESTING: Syncope. DESCRIPTION OF THE PROCEDURE: This EEG was performed using a 21 channel digital electroencephalograph, following international 10-20 system. DESCRIPTION OF THE RECORDING: From the beginning of the tracing, with patient's eyes closed, the background rhythm was mostly consisting of 8 Hz alpha frequency in the posterior occipital leads. No obvious asymmetry is seen. Photic stimulation was performed with a minimal driving response seen. No pathological waves were elicited. Hyperventilation was not performed. The patient remains awake throughout the tracing. No epileptiform discharges were seen. Rare lead artifacts are seen. His EKG lead showed a regular rate and rhythm. INTERPRETATION: This awake EEG can be considered within normal limits. There is no asymmetry seen. No epileptiform discharges were noticed. The absence of epileptiform discharges does not rule out the diagnosis of epilepsy, therefore clinical correlation is recommended. MMSTEVIEL / IJRitu: [id number] /
[2017-08-12] MEDS ORDERED: ERGOCALCIFEROL 50,000 UNIT CAP PO SCH (12:00)
== END 2017-08-10 16:33 | disposition home or self-care (01) ==
LOC: EC 12:08 → 3OBS 16:12
PROVIDERS: ADMIT Internal Medicine; ATTEND Internal Medicine
DX: G40.409 Other generalized epilepsy and epileptic syndromes, not intractable, without status epilepticus (principal); E11.22 Type 2 diabetes mellitus with diabetic chronic kidney disease; I12.9 Hypertensive chronic kidney disease with stage 1 through stage 4 chronic kidney disease, or unspecified chronic kidney disease; N18.3 Chronic kidney disease, stage 3 (moderate); E11.42 Type 2 diabetes mellitus with diabetic polyneuropathy; G62.9 Polyneuropathy, unspecified; I69.351 Hemiplegia and hemiparesis following cerebral infarction affecting right dominant side; I69.392 Facial weakness following cerebral infarction; E78.5 Hyperlipidemia, unspecified; I25.2 Old myocardial infarction; M19.90 Unspecified osteoarthritis, unspecified site; I25.10 Atherosclerotic heart disease of native coronary artery without angina pectoris; C61 Malignant neoplasm of prostate; M54.5 Low back pain; G89.29 Other chronic pain; R41.3 Other amnesia; L40.9 Psoriasis, unspecified; F40.240 Claustrophobia; Z79.82 Long term (current) use of aspirin; Z79.899 Other long term (current) drug therapy; Z79.4 Long term (current) use of insulin; Z87.01 Personal history of pneumonia (recurrent); Z96.41 Presence of insulin pump (external) (internal); Z87.442 Personal history of urinary calculi; Z95.5 Presence of coronary angioplasty implant and graft; Z87.891 Personal history of nicotine dependence; Z80.52 Family history of malignant neoplasm of bladder; Z80.49 Family history of malignant neoplasm of other genital organs; Z81.8 Family history of other mental and behavioral disorders
CPT/HCPCS: 99285; 96372 ×2; 36415; 95819; 93005; 80053; 80048; 85025 ×2; G0378 ×2; J1644 ×2

== ENCOUNTER → 2017-08-12 | Outpatient (CLI) | payer MEDICARE, OTHER ==
[2017-08-12 17:00] LABS: Basophils # (A) 0.1 k/uL (0-0.2); Basophils % (A) 1 %; Eosinophils # (A) 0.1 k/uL (0-0.7); Eosinophils % (A) 1 %; HCT 41.8 % (39.0-53.0); HGB 13.7 gm/dL (13.0-17.5); Lymphocytes # (A) 0.8 k/uL (1.0-4.8); Lymphocytes % (A) 10 %; MCH 27.7 pg (25.0-35.0); MCHC 32.9 g/dL (31.0-37.0); MCV 84.1 fL (80.0-100.0); Mean Platelet Volume 6.9; Monocytes # (A) 0.5 k/uL (0-1.0); Monocytes % (A) 7 %; Neutrophils % (A) 79 %; Platelet Count 254 k/uL (150-450); Poikilocytosis Slight; RBC 4.96 m/uL (4.30-5.90); RDW 13.8 % (11.5-15.5); WBC 7.5 k/uL (3.8-10.6)
[2017-08-12 17:10] LABS: ALT 43 U/L (21-72); AST 30 U/L (17-59); Albumin 4.1 g/dL (3.5-5.0); Alkaline Phosphatase 156 U/L (38-126); Anion Gap 11 mmol/L; Blood Urea Nitrogen 16 mg/dL (9-20); Calcium 9.8 mg/dL (8.4-10.2); Carbon Dioxide 30 mmol/L (22-30); Chloride 101 mmol/L (98-107); Glucose 185 mg/dL (74-99); Sodium 142 mmol/L (137-145); Total Bilirubin 0.6 mg/dL (0.2-1.3); Total Protein 6.8 g/dL (6.3-8.2)
== END | disposition home or self-care (01) ==
LOC: LABWHC1 16:21
PROVIDERS: ATTEND Hospitalist
DX: R56.9 Unspecified convulsions (principal)
CPT/HCPCS: 36415; 80053; 85025

== ENCOUNTER 2017-08-22 14:30 | Inpatient (IN) | payer MEDICARE, OTHER ==
[2017-08-22] MEDS ORDERED: PIPERACILLIN-TAZOBACTAM 3.375 GM in DEXTROSE/WATER 1 50ML.BAG IVPB STA (14:36)
[2017-08-22] MEDS ORDERED: ACETAMINOPHEN TAB 500 MG TAB PO STA (14:43)
[2017-08-22 14:45] LABS: Glucose,Whole Blood 107 mg/dL (75-99)
--- NOTE | 2017-08-22 14:50 | ED ---
Altered Mental Status HPI - General Stated Complaint: ADRIANNA Time Seen by Provider: 08/22/17 14:32 Source: patient, EMS Mode of arrival: EMS Limitations: altered mental status - History of Present Illness Initial Comments: 6 years old male came in with a high fever of 102.7 fever chills cough and bringing up some phlegm there is a question of firm mental status change overnight interacted with him he was appropriate for prior when the EMS staff and the nursing staff was speaking with him he was not oriented to time place and person EMS staff noticed that his sugars appropriate to 100 and pulse rate was 1:30 in the history of CVA they found him shaking high fever and tachycardia. He denies any headache no neck stiffness denies any chest pain, he has a shortness of breath, no abdominal pain no frequency urgency dysuria no new neurological deficits - Related Data Home Medications Medication Instructions Recorded Confirmed Aspirin 81 mg PO DAILY 01/12/15 08/22/17 [place]-3 Acid Ethyl Esters [Lovaza] 1 gm PO BID 01/12/15 08/22/17 Gabapentin 800 mg PO BID 04/18/16 08/22/17 HYDROcodone/APAP 7.5-325MG [[place] 1 tab PO TID PRN 03/14/17 08/22/17 7.5-325] Primidone [Mysoline] 150 mg PO HS 03/14/17 08/22/17 Atorvastatin Calcium [Lipitor] 80 mg PO HS 07/30/17 08/22/17 Cyclobenzaprine [Flexeril] 10 mg PO HS PRN 07/30/17 08/22/17 Donepezil [Aricept] 5 mg PO HS 07/30/17 08/22/17 Ergocalciferol [Vitamin D2 50,000 unit PO GUERRA 07/30/17 08/22/17 (DRISDOL)] INSULIN LISPRO (For Pump) [humaLOG See Protocol SQ-PUMP CONTINUOUS 07/30/1702/01 (For Pump)] Meclizine [Antivert] 25 mg PO TID PRN 07/30/17 08/22/17 Memantine HCl [Namenda] 10 mg PO BID 07/30/17 08/22/17 rOPINIRole HCL [Requip] 0.25 mg PO HS 07/30/17 08/22/17 rOPINIRole HCL [Requip] 0.5 mg PO QAM 07/30/17 08/22/17 Previous Rx's Medication Instructions Recorded Isosorbide Mononitrate ER [Imdur] 30 mg PO DAILY #30 tab.er.24h 01/17/15 Losartan [Cozaar] 50 mg PO DAILY #30 tab 01/17/15 Metoprolol Tartrate [Lopressor] 25 mg PO DAILY #30 tab 01/17/15 Nitroglycerin Sl Tabs [Nitrostat] 0.4 mg SUBLINGUAL Q5M PRN #25 tab 01/17/15 Prasugrel [Effient] 10 mg PO DAILY #30 tab 01/17/15 OXcarbazepine [Trileptal] 300 mg PO BID #60 tab 08/10/17 Allergies Allergy/AdvReac Type Severity Reaction Status Date / Time No Known Allergies Allergy Verified 08/22/17 15:25 Review of Systems ROS Statement: Those systems with pertinent positive or pertinent negative responses have been documented in the HPI. ROS Other: All systems not noted in ROS Statement are negative. Past Medical History Past Medical History: Coronary Artery Disease (CAD), Cancer, Chest Pain / Angina , CVA/TIA, Diabetes Mellitus, Hyperlipidemia, Hypertension, Myocardial Infarction ([place]), Osteoarthritis (OA), Pneumonia, Renal Disease, Skin Disorder Additional Past Medical History / Comment(s): -has insulin pump-FILLED 07-29-17, neuropathy bilateral legs, prostate cancer with gold seeds implanted, CVA with R arm/R leg weakness,lt facial droop, chronic low back pain, fx vertebrae L3,4,5 and S1, nephrolithiasis, Chronic renal disease stage III, psoriasis, mild memory problems Last Myocardial Infarction Date:: 2014 History of Any Multi-Drug Resistant Organisms: None Reported Past Surgical History: Heart Catheterization With Stent Additional Past Surgical History / Comment(s): COLONOCOSPY, LUMBAR EPIDURAL INJ , total 4 cardiac stents (2010 1 stent and 2014 3 stents),juventino cataracts/lens implants, colonoscopy, gold seed implants for prostate cancer. Past Anesthesia/Blood Transfusion Reactions: Motion Sickness Additional Past Anesthesia/Blood Transfusion Reaction / Comment(s): CLAUSTERPHOBIC Date of Last Stent Placement:: 2010 Past Psychological History: No Psychological Hx Reported Smoking Status: Former smoker Past Alcohol Use History: None Reported Past Drug Use History: None Reported - Past Family History Father Family Medical History: Cancer Additional Family Medical History / Comment(s): FATHER HAD BLADDER CANCER AND OF THIS IN HIS 40'S Mother Family Medical History: Cancer, Dementia Additional Family Medical History / Comment(s): UTERINE CANCER. Mother of dementia at the age of 89yrs. General Exam Limitations: altered mental status Course Vital Signs 08/22/17 08/22/17 08/22/17 14:43 15:15 15:43 Temperature 102.7 F H 102.1 F H Pulse Rate 130 H 129 H 114 H Respiratory 16 16 20 Rate Blood Pressure 111/63 111/63 O2 Sat by Pulse 92 L 95 95 Oximetry EKG is a sinus tachycardia ventricular rate is 132 TN interval is 156 QRS duration is 80 QT/QTc is 24/477 review of this EKG does not reveal any ST elevation Medical Decision Making - Lab Data Result diagrams: 08/22/17 14:45 08/22/17 14:45 Lab Results 08/22/17 08/22/17 08/22/17 Range/Units 14:41 14:45 14:45 WBC 8.9 (3.8-10.6) k/uL RBC 5.42 (4.30-5.90) m/uL Hgb 15.6 (13.0-17.5) gm/dL Hct 44.3 (39.0-53.0) % MCV 81.8 (80.0-100.0) fL MCH 28.7 (25.0-35.0) pg MCHC 35.1 (31.0-37.0) g/dL RDW 14.7 (11.5-15.5) % Plt Count 219 (150-450) k/uL Neutrophils % 86 % Lymphocytes % 7 % Monocytes % 2 % Eosinophils % 2 % Basophils % 1 % Neutrophils # 7.7 (1.3-7.7) k/uL Lymphocytes # 0.7 L (1.0-4.8) k/uL Monocytes # 0.2 (0-1.0) k/uL Eosinophils # 0.2 (0-0.7) k/uL Basophils # 0.1 (0-0.2) k/uL Poikilocytosis Slight PT (9.0-12.0) sec INR (<1.2) APTT (22.0-30.0) sec Sodium 143 (137-145) mmol/L Potassium 4.8 (3.5-5.1) mmol/L Chloride 104 (98-107) mmol/L Carbon Dioxide 26 (22-30) mmol/L Anion Gap 13 mmol/L BUN 16 (9-20) mg/dL Creatinine 1.20 (0.66-1.25) mg/dL Est GFR (CKD-EPI)AfAm 73 (>60 ml/min/1.73 sqM) Est GFR (CKD-EPI)NonAf 63 (>60 ml/min/1.73 sqM) Glucose 107 H (74-99) mg/dL POC Glucose (mg/dL) 107 H (75-99) mg/dL POC Glu Med Dir CANDACE WeeksEnedina ojeda Plasma Lactic Acid Abdirizak (0.7-2.0) mmol/L Calcium 9.9 (8.4-10.2) mg/dL Total Bilirubin 0.6 (0.2-1.3) mg/dL AST 27 (17-59) U/L ALT 45 (21-72) U/L Alkaline Phosphatase 164 H (38-126) U/L Troponin I (0.000-0.034) ng/mL Total Protein 7.2 (6.3-8.2) g/dL Albumin 4.2 (3.5-5.0) g/dL Urine Color Urine Appearance (Clear) Urine pH (5.0-8.0) Ur Specific [place] (1.001-1.035) Urine Protein (Negative) Urine Glucose (UA) (Negative) Urine Ketones (Negative) Urine Blood (Negative) Urine Nitrite (Negative) Urine Bilirubin (Negative) Urine Urobilinogen (<2.0) mg/dL Ur Leukocyte Esterase (Negative) 08/22/17 08/22/17 08/22/17 Range/Units 14:45 14:45 14:45 WBC (3.8-10.6) k/uL RBC (4.30-5.90) m/uL Hgb (13.0-17.5) gm/dL Hct (39.0-53.0) % MCV (80.0-100.0) fL MCH (25.0-35.0) pg MCHC (31.0-37.0) g/dL RDW (11.5-15.5) % Plt Count (150-450) k/uL Neutrophils % % Lymphocytes % % Monocytes % % Eosinophils % % Basophils % % Neutrophils # (1.3-7.7) k/uL Lymphocytes # (1.0-4.8) k/uL Monocytes # (0-1.0) k/uL Eosinophils # (0-0.7) k/uL Basophils # (0-0.2) k/uL Poikilocytosis PT 9.8 (9.0-12.0) sec INR 1.0 (<1.2) APTT 19.9 L (22.0-30.0) sec Sodium (137-145) mmol/L Potassium (3.5-5.1) mmol/L Chloride (98-107) mmol/L Carbon Dioxide (22-30) mmol/L Anion Gap mmol/L BUN (9-20) mg/dL Creatinine (0.66-1.25) mg/dL Est GFR (CKD-EPI)AfAm (>60 ml/min/1.73 sqM) Est GFR (CKD-EPI)NonAf (>60 ml/min/1.73 sqM) Glucose (74-99) mg/dL POC Glucose (mg/dL) (75-99) mg/dL POC Glu Med Dir ID Plasma Lactic Acid Abdirizak 2.3 H* (0.7-2.0) mmol/L Calcium (8.4-10.2) mg/dL Total Bilirubin (0.2-1.3) mg/dL AST (17-59) U/L ALT (21-72) U/L Alkaline Phosphatase (38-126) U/L Troponin I <0.012 (0.000-0.034) ng/mL Total Protein (6.3-8.2) g/dL Albumin (3.5-5.0) g/dL Urine Color Urine Appearance (Clear) Urine pH (5.0-8.0) Ur Specific [place] (1.001-1.035) Urine Protein (Negative) Urine Glucose (UA) (Negative) Urine Ketones (Negative) Urine Blood (Negative) Urine Nitrite (Negative) Urine Bilirubin (Negative) Urine Urobilinogen (<2.0) mg/dL Ur Leukocyte Esterase (Negative) 08/22/17 Range/Units 15:23 WBC (3.8-10.6) k/uL RBC (4.30-5.90) m/uL Hgb (13.0-17.5) gm/dL Hct (39.0-53.0) % MCV (80.0-100.0) fL MCH (25.0-35.0) pg MCHC (31.0-37.0) g/dL RDW (11.5-15.5) % Plt Count (150-450) k/uL Neutrophils % % Lymphocytes % % Monocytes % % Eosinophils % % Basophils % % Neutrophils # (1.3-7.7) k/uL Lymphocytes # (1.0-4.8) k/uL Monocytes # (0-1.0) k/uL Eosinophils # (0-0.7) k/uL Basophils # (0-0.2) k/uL Poikilocytosis PT (9.0-12.0) sec INR (<1.2) APTT (22.0-30.0) sec Sodium (137-145) mmol/L Potassium (3.5-5.1) mmol/L Chloride (98-107) mmol/L Carbon Dioxide (22-30) mmol/L Anion Gap mmol/L BUN (9-20) mg/dL Creatinine (0.66-1.25) mg/dL Est GFR (CKD-EPI)AfAm (>60 ml/min/1.73 sqM) Est GFR (CKD-EPI)NonAf (>60 ml/min/1.73 sqM) Glucose (74-99) mg/dL POC Glucose (mg/dL) (75-99) mg/dL POC Glu Med Dir ID Plasma Lactic Acid Abdirizak (0.7-2.0) mmol/L Calcium (8.4-10.2) mg/dL Total Bilirubin (0.2-1.3) mg/dL AST (17-59) U/L ALT (21-72) U/L Alkaline Phosphatase (38-126) U/L Troponin I (0.000-0.034) ng/mL Total Protein (6.3-8.2) g/dL Albumin (3.5-5.0) g/dL Urine Color Yellow Urine Appearance Clear (Clear) Urine pH 5.5 (5.0-8.0) Ur Specific [place] 1.014 (1.001-1.035) Urine Protein Negative (Negative) Urine Glucose (UA) Negative (Negative) Urine Ketones Negative (Negative) Urine Blood Negative (Negative) Urine Nitrite Negative (Negative) Urine Bilirubin Negative (Negative) Urine Urobilinogen <2.0 (<2.0) mg/dL Ur Leukocyte Esterase Negative (Negative) Critical Care Time Total Critical Care Time: 30 Critical Care Time: Patient came in with a fever of 103, heart rate was around 132 he had some confusion, he was treated according to the sepsis protocol he was given broad- spectrum antibiotic. She was given 2.5 L of normal saline blood cultures urine cultures were drawn along with a lactate lactate is abnormal consulted infectious disease specialist admit him under Dr. Gold at term in now selective care at this point urine is unremarkable CBC, his metabolic panel is also unremarkable lactate is elevated with the fluid antibiotic resuscitation his heart rate has settled down now he is little over 100 And 132 when he came in, study EKG was done which confirms sinus tachycardia there was no ST elevation troponin was drawn as well which was unremarkable head CT B done since he has a history of CVA and now difficult question of seizure disorder we will consult neurology as well Disposition Clinical Impression: Sepsis, Tachycardia, Fever Disposition: ADMITTED IP TO THIS HOSP Referrals: Cedric Gold DO [Primary Care Provider] - 1-2 days
[2017-08-22 15:04] LABS: Basophils # (A) 0.1 k/uL (0-0.2); Basophils % (A) 1 %; Eosinophils # (A) 0.2 k/uL (0-0.7); Eosinophils % (A) 2 %; HCT 44.3 % (39.0-53.0); HGB 15.6 gm/dL (13.0-17.5); Lymphocytes # (A) 0.7 k/uL (1.0-4.8); Lymphocytes % (A) 7 %; MCH 28.7 pg (25.0-35.0); MCHC 35.1 g/dL (31.0-37.0); MCV 81.8 fL (80.0-100.0); Mean Platelet Volume 6.7; Monocytes # (A) 0.2 k/uL (0-1.0); Monocytes % (A) 2 %; Neutrophils # (A) 7.7 k/uL (1.3-7.7); Neutrophils % (A) 86 %; Platelet Count 219 k/uL (150-450); Poikilocytosis Slight; RBC 5.42 m/uL (4.30-5.90); RDW 14.7 % (11.5-15.5); WBC 8.9 k/uL (3.8-10.6)
[2017-08-22] MEDS: SODIUM CHLORIDE 0.9% 500 ML IV SCH ×5 (15:04→16:44)
[2017-08-22 15:09] LABS: Albumin 4.2 g/dL (3.5-5.0); Calcium 9.9 mg/dL (8.4-10.2); Potassium 4.8 mmol/L (3.5-5.1); Total Bilirubin 0.6 mg/dL (0.2-1.3); Total Protein 7.2 g/dL (6.3-8.2)
[2017-08-22 15:26] LABS: Prothrombin Time 9.8 sec (9.0-12.0)
[2017-08-22 15:30] LABS: Partial Thromboplastin Time 19.9 sec (22.0-30.0)
[2017-08-22] MEDS ORDERED: NALOXONE 0.4 MG/ML 1 ML VIAL IV PRN (15:33)
[2017-08-22] MEDS ORDERED: ONDANSETRON 4 MG/2 ML VIAL IVP PRN (15:33)
[2017-08-22] MEDS ORDERED: MORPHINE SULFATE 4 MG/ML SYRINGE IV PRN (15:33)
[2017-08-22 15:35] LABS: Appearance,Urine Clear (Clear); Bilirubin,Urine Negative (Negative); Blood,Urine Negative (Negative); Color,Urine Yellow; Glucose,Urine (UA) Negative (Negative); Ketones,Urine Negative (Negative); Leukocyte Esterase,Urine Negative (Negative); Nitrite,Urine Negative (Negative); PH, Urine 5.5 (5.0-8.0); Protein,Urine Negative (Negative); Specific Gravity,Urine 1.014 (1.001-1.035); Urobilinogen,Urine <2.0 mg/dL (<2.0)
[2017-08-22] MEDS ORDERED: HYDROcodone/APAP 7.5-325MG 1 EACH TAB PO PRN (15:43)
[2017-08-22] MEDS ORDERED: CYCLOBENZAPRINE 10 MG TAB PO PRN (15:43)
[2017-08-22] MEDS ORDERED: MECLIZINE 25 MG TAB PO PRN (15:43)
[2017-08-22] MEDS ORDERED: NITROGLYCERIN SL TABS 0.4 MG TAB SUBLINGUAL PRN (15:43)
--- NOTE | 2017-08-22 15:44 | XR ---
EXAMINATION TYPE: XR chest 2V DATE OF EXAM: 08/22/2017 COMPARISON: Prior chest x-ray 07/30/[address] 08/01/2017 HISTORY: Fever, cough and shortness of breath TECHNIQUE: Frontal and lateral views of the chest are obtained. FINDINGS: There is no significant interval change. Retrocardiac density, perihilar increased density is again noted. There is no pneumothorax or pleural effusion. Heart size is stable. Mediastinum agai n appears prominent as does the hilar regions. Patient is rotated and there are overlying cardiac jorge ds. IMPRESSION: Mediastinal and hilar adenopathy, there may be retrocardiac mass as noted on prior exam. Follow-up chest CT May benefit. Correlate for possible metastatic disease.
[2017-08-22] MEDS ORDERED: MORPHINE SULFATE 4 MG/ML SYRINGE IVP STA (15:46)
[2017-08-22] MEDS ORDERED: ONDANSETRON 4 MG/2 ML VIAL IVP STA (15:46)
[2017-08-22] MEDS: SODIUM CHLORIDE 0.9% 1,000 ML IV SCH ×2 (16:42→22:12)
--- NOTE | 2017-08-22 16:51 | CT ---
EXAMINATION TYPE: CT brain wo con DATE OF EXAM: 08/22/2017 COMPARISON: 07/30/2017 INDICATION: Altered mental status. DLP: 1171 mGycm, Automated exposure control for dose reduction was used. CONTRAST: None CT of the brain is performed utilizing 3 mm thick sections through the posterior fossa and 3 mm thick sections through the remaining calvarium. Study is performed within 24 hours of arrival to the hosp [facility]. No abnormal hyperdensity is present to suggest an acute intracranial hemorrhage. No mass lesion is evident. No acute infarcts are evident. There is some periventricular white matter hypodensity, likely on the basis of chronic white matter ischemic changes Ventricles and sulci are prominent for the patient age. Paranasal sinuses and mastoid air cells within the [id number] are clear. IMPRESSIONS: 1. Normal CT Brain
[2017-08-22 18:28] LABS: Glucose,Whole Blood 74 mg/dL (75-99)
[2017-08-22] MEDS: ACETAMINOPHEN TAB 325 MG TAB PO PRN (20:14)
[2017-08-22] MEDS ORDERED: LORazepam 2 MG/ML INJ IV STA (20:18)
[2017-08-22] MEDS: OMEGA ACID ETHYL ESTERS PO SCH (20:39)
[2017-08-22] MEDS: DONEPEZIL 5 MG TAB PO SCH (20:41)
[2017-08-22] MEDS: ATORVASTATIN 80 MG TAB PO SCH (20:41)
[2017-08-22] MEDS: PRIMIDONE 50 MG TAB PO SCH (20:42)
[2017-08-22] MEDS: MEMANTINE 5 MG TAB PO SCH (20:42)
[2017-08-22] MEDS: OXcarbazepine 300 MG TAB PO SCH (20:42)
[2017-08-22] MEDS: GABAPENTIN 400 MG CAP PO SCH (20:42)
[2017-08-22 20:48] LABS: Glucose,Whole Blood 131 mg/dL (75-99)
[2017-08-22] MEDS: INSULIN ASPART 100 UNIT/ML 1 ML 10 ML VIAL SQ SCH (20:49)
--- NOTE | 2017-08-22 21:46 | P.CNNES ---
History of Present Illness Consult date: 08/22/17 Reason for Consult: Patient admitted with altered mental status and seizure history. History of Present Illness: This patient is a 66-year-old right-handed white male who was brought into the emergency room today with altered mental status and fever. According to his was at bedside he was noted recently is having a seizure about 2 weeks ago. He was started on Trileptal as primary anticonvulsant treatment. Apparently a week ago his dose was reduced to 300 mg twice a day due to some side effects. Today he was showing signs of increased confusion and sepsis. According to the this afternoon he began having tremors involving his entire body. He was brought into the emergency room where he had a fever and temperature of 102.7. He did not have any signs of headache or meningitis in the ER. Patient was seen in the ER by Dr. Rodriguez. He did order a computed tomography scan of the brain which was done today and is reported normal CT brain. Patient was admitted to hospital for further evaluation. Blood and urine cultures were drawn and are pending at this time. Apparently the patient had new onset of seizure 2 weeks ago and has no previous history of such. It is possible that his tremors may be related to sepsis as well. The patient was examined on the medical floor and is able to answer simple questions. He does have some tremor-like activity involving his left upper extremity. He is able to speak throughout the entire interview and does not appear to be postictal at this time. We have asked for a stat Trileptal level to be done this evening. He is to continue on his current dose of Trileptal 300 mg twice a day. Patient does have a history of stroke and diabetes in the past. His previous stroke left him with some residual right-sided weakness. He has had multiple EEGs done in the past which were normal the most recent being done on 08/10/2017. Patient will have a repeat EEG done tomorrow for further assessment. We did recommend a small dose of Ativan for this patient which did ease up some of his tremulousness. We have discussed this patient's finding in detail with the patient's at bedside. All of her questions were answered. We will continue close monitoring and will need to obtain his EEG tomorrow as well as his Trileptal level to make further adjustments. Neurology is now been consulted for further evaluation and recommendations. Review of Systems Constitutional: Denies chills, Denies fever Eyes: denies blurred vision, denies pain Ears, nose, mouth and throat: Denies headache, Denies sore throat Cardiovascular: Denies chest pain, Denies shortness of breath Respiratory: Denies cough Gastrointestinal: Denies abdominal pain, Denies diarrhea, Denies nausea, Denies vomiting Musculoskeletal: Denies myalgias Integumentary: Denies pruritus, Denies rash Neurological: Denies numbness, Denies weakness Psychiatric: Denies anxiety, Denies depression Endocrine: Denies fatigue, Denies weight change Past Medical History Past Medical History: Coronary Artery Disease (CAD), Cancer, Chest Pain / Angina , CVA/TIA, Diabetes Mellitus, Hyperlipidemia, Hypertension, Myocardial Infarction ([place]), Osteoarthritis (OA), Pneumonia, Renal Disease, Skin Disorder Additional Past Medical History / Comment(s): -has insulin pump-FILLED 07-29-17, neuropathy bilateral legs, prostate cancer 2010 with gold seeds implanted, CVA 04/18/16 with R arm/R leg weakness,lt facial droop, chronic low back pain, fx vertebrae L3,4,5 and S1, nephrolithiasis, Chronic renal disease stage III, psoriasis, mild memory problems, seizure-hospitalized about 1 week ago Last Myocardial Infarction Date:: 2014 History of Any Multi-Drug Resistant Organisms: None Reported Past Surgical History: Heart Catheterization With Stent Additional Past Surgical History / Comment(s): COLONOCOSPY, LUMBAR EPIDURAL INJ , total 4 cardiac stents (2010 1 stent and 2014 3 stents),juventino cataracts/lens implants, colonoscopy, gold seed implants for prostate cancer. Past Anesthesia/Blood Transfusion Reactions: Motion Sickness Additional Past Anesthesia/Blood Transfusion Reaction / Comment(s): CLAUSTERPHOBIC Date of Last Stent Placement:: 2014 Past Psychological History: No Psychological Hx Reported Additional Psychological History / Comment(s): PT LIVES AT HOME WITH HIS KWAN IS INDEPENDANT WITH HIS OWN CARE. USED TO WORK FOR [employer]., no home care services, has insulin pump/glucometer Smoking Status: Former smoker Past Alcohol Use History: None Reported Additional Past Alcohol Use History / Comment(s): STARTED SMOKING AROUND AGE 48( 1998) SMOKE A PIPE OR CIGARS 2-3 times a week but quit 04/2016. Past Drug Use History: None Reported - Past Family History Father Family Medical History: Cancer Additional Family Medical History / Comment(s): FATHER HAD BLADDER CANCER AND OF THIS IN HIS 40'S Mother Family Medical History: Cancer, Dementia Additional Family Medical History / Comment(s): UTERINE CANCER. Mother of dementia at the age of 89yrs. Medications and Allergies Home Medications Medication Instructions Recorded Confirmed Type Aspirin 81 mg PO DAILY 01/12/15 08/22/17 History [place]-3 Acid Ethyl Esters [Lovaza] 1 gm PO BID 01/12/15 08/22/17 History Isosorbide Mononitrate ER [Imdur] 30 mg PO DAILY #30 tab.er.24h 01/17/15 Rx Losartan [Cozaar] 50 mg PO DAILY #30 tab 01/17/15 08/22/17 Rx Metoprolol Tartrate [Lopressor] 25 mg PO DAILY #30 tab 01/17/15 08/22/17 Rx Nitroglycerin Sl Tabs [Nitrostat] 0.4 mg SUBLINGUAL Q5M PRN #25 tab 01/17/1502/01 Rx Prasugrel [Effient] 10 mg PO DAILY #30 tab 01/17/15 08/22/17 Rx Gabapentin 800 mg PO BID 04/18/16 08/22/17 History HYDROcodone/APAP 7.5-325MG [[place] 1 tab PO TID PRN 03/14/17 08/22/17 History 7.5-325] Primidone [Mysoline] 150 mg PO HS 03/14/17 08/22/17 History Atorvastatin Calcium [Lipitor] 80 mg PO HS 07/30/17 08/22/17 History Cyclobenzaprine [Flexeril] 10 mg PO HS PRN 07/30/17 08/22/17 History Donepezil [Aricept] 5 mg PO HS 07/30/17 08/22/17 History Ergocalciferol [Vitamin D2 50,000 unit PO GUERRA 07/30/17 08/22/17 History (DRISDOL)] INSULIN LISPRO (For Pump) [humaLOG See Protocol SQ-PUMP CONTINUOUS 07/30/1702/01 History (For Pump)] Meclizine [Antivert] 25 mg PO TID PRN 07/30/17 08/22/17 History Memantine HCl [Namenda] 10 mg PO BID 07/30/17 08/22/17 History rOPINIRole HCL [Requip] 0.25 mg PO HS 07/30/17 08/22/17 History rOPINIRole HCL [Requip] 0.5 mg PO QAM 07/30/17 08/22/17 History OXcarbazepine [Trileptal] 300 mg PO BID #60 tab 08/10/17 08/22/17 Rx Allergies Allergy/AdvReac Type Severity Reaction Status Date / Time No Known Allergies Allergy Verified 08/22/17 15:25 Physical Examination - Vital Signs Vital Signs: Vital Signs Temp Pulse Pulse Resp BP BP Pulse Ox 08/22/17 18:10 100.2 F H 116 H 20 154/72 95 08/22/17 17:45 101 F H 108 H 16 104/64 95 08/22/17 16:02 114 H 16 157/94 95 08/22/17 15:43 102.1 F H 114 H 20 111/63 95 08/22/17 15:15 129 H 16 111/63 95 08/22/17 14:43 102.7 F H 130 H 16 92 L Intake and Output 08/22/17 08/22/17 08/22/17 06:59 14:59 22:59 Other: # Voids 1 # Bowel Movements 0 Weight 104.326 kg 104.326 kg Patient Weight 08/23/17 06:59 Weight 104.326 kg - Constitutional General appearance: average body habitus, cooperative - EENT EENT: PERRL, mucous membranes moist - Respiratory Respiratory: lungs clear, normal breath sounds - Cardiovascular Cardiovascular: regular rate, normal S1, normal S2 Extremities: no peripheral edema bilaterally - Gastrointestinal Gastrointestinal: normoactive bowel sounds - Integumentary Integumentary: normal - Neurologic Cranial nerve examination: PERRL, EOMI, VFF, V1/V2/V3 grossly intact, face symmetric, tongue midline, intact gag reflex, intact corneal reflex, normal palatal elevation Speech examination: intact Sensorimotor examination: intact Motor examination - right side: 4/5: biceps, triceps, wrist flexion, wrist extension, 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, hip flexors, knee extensors, dorsiflexion, toe extension (EHL) , plantarflexion Motor examination - left side: 4/5: biceps, triceps, wrist flexion, wrist extension, 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, hip flexors, knee extensors, dorsiflexion, toe extension (EHL) , plantarflexion Detailed sensory examination: intact Reflex and gait examination: intact Reflexes: 1+: ankle, bicep, knee, tricep - Musculoskeletal Musculoskeletal: no pain - Psychiatric Psychiatric: mood/affect appropriate, cooperative Results - Laboratory Findings CBC and BMP: 08/22/17 14:45 08/22/17 14:45 Abnormal Lab Findings: Abnormal Labs 08/22/17 08/22/17 08/22/17 14:41 14:45 14:45 Lymphocytes # 0.7 L APTT Glucose 107 H POC Glucose (mg/dL) 107 H Plasma Lactic Acid Abdirizak Alkaline Phosphatase 164 H 08/22/17 08/22/17 08/22/17 14:45 14:45 18:23 Lymphocytes # APTT 19.9 L Glucose POC Glucose (mg/dL) 74 L Plasma Lactic Acid Abdirizak 2.3 H* Alkaline Phosphatase 08/22/17 08/22/17 18:36 20:45 Lymphocytes # APTT Glucose POC Glucose (mg/dL) 131 H Plasma Lactic Acid Abdirizak 2.2 H* Alkaline Phosphatase Assessment and Plan (1) Fever Current Visit: Yes Status: Acute Code(s): R50.9 - FEVER, UNSPECIFIED SNOMED Code(s): 397881314 (2) Sepsis Current Visit: Yes Status: Acute Code(s): A41.9 - SEPSIS, UNSPECIFIED ORGANISM SNOMED Code(s): 89161345 (3) Seizure Current Visit: No Status: Acute Code(s): R56.9 - UNSPECIFIED CONVULSIONS SNOMED Code(s): 86795170 (4) CAD (coronary artery disease) Current Visit: No Status: Chronic Code(s): I25.10 - ATHSCL HEART DISEASE OF [place] CORONARY ARTERY W/O ANG PCTRS SNOMED Code(s): 30932015 Plan: This patient is a 66-year-old male who was admitted to hospital with altered mental status and fever. He was brought into the emergency room where his temperature was 102.7. He was sent for a computed tomography scan of the brain which was normal. He was having twitching mostly involving his upper extremities since late this afternoon. He has a history of seizure disorder and is currently on Trileptal 300 milligrams twice a day. A stat Trileptal level was ordered and is still pending this evening. The patient is able to talk during his in tire examination today even though he is having tremulousness. He is being evaluated for sepsis and fever at this time and is to be seen by infectious disease. We will await their further recommendations. At this time we will obtain a EEG tomorrow and will adjust his Trileptal level as needed. Patient is to be placed on Ativan when necessary for any seizure-like events during this admission. Would recommend seizure precautions for this patient. Case was discussed at length with the patient's at bedside. All of her questions were answered to the best of our ability. We will continue close monitoring of the patient during this admission. His overall prognosis at this time remains guarded. Time with Patient: Greater than 30
[2017-08-23 05:43] LABS: Glucose,Whole Blood 155 mg/dL (75-99)
[2017-08-23] MEDS: SODIUM CHLORIDE 0.9% 1,000 ML IV SCH ×3 (05:59→20:34)
[2017-08-23] MEDS: guaiFENesin 600 MG TABLET.ER PO PRN (06:42)
[2017-08-23] MEDS: INSULIN ASPART 100 UNIT/ML 1 ML 10 ML VIAL SQ SCH ×4 (06:43→20:55)
[2017-08-23 06:51] LABS: Albumin 3.1 g/dL (3.5-5.0); Calcium 8.4 mg/dL (8.4-10.2); Potassium 4.7 mmol/L (3.5-5.1); Total Bilirubin 0.9 mg/dL (0.2-1.3); Total Protein 5.4 g/dL (6.3-8.2)
[2017-08-23 07:06] LABS: Basophils % (A) 0 %; Eosinophils % (A) 0 %; HCT 36.2 % (39.0-53.0); Lymphocytes # (A) 0.5 k/uL (1.0-4.8); Lymphocytes % (A) 4 %; MCH 28.4 pg (25.0-35.0); MCHC 34.2 g/dL (31.0-37.0); MCV 82.9 fL (80.0-100.0); Mean Platelet Volume 7.3; Monocytes # (A) 0.4 k/uL (0-1.0); Monocytes % (A) 4 %; Neutrophils # (A) 9.6 k/uL (1.3-7.7); Neutrophils % (A) 91 %; Platelet Count 201 k/uL (150-450); RBC 4.36 m/uL (4.30-5.90); RDW 14.8 % (11.5-15.5); WBC 10.6 k/uL (3.8-10.6)
[2017-08-23 07:39] LABS: HGB 12.4 gm/dL (13.0-17.5)
[2017-08-23] MEDS: ASPIRIN 81 MG PO SCH (09:50)
[2017-08-23] MEDS: GABAPENTIN 400 MG CAP PO SCH ×2 (09:50→20:55)
[2017-08-23] MEDS: METOPROLOL TARTRATE 25 MG TAB PO SCH (09:51)
[2017-08-23] MEDS: LOSARTAN 50 MG TAB PO SCH (09:51)
[2017-08-23] MEDS: ISOSORBIDE MONONITRATE ER 30 MG TAB.ER.24H PO SCH (09:51)
[2017-08-23] MEDS: OXcarbazepine 300 MG TAB PO SCH ×2 (09:51→20:56)
[2017-08-23] MEDS: MEMANTINE 5 MG TAB PO SCH ×2 (09:51→20:56)
[2017-08-23] MEDS: PRASUGREL 10 MG TAB PO SCH (09:53)
[2017-08-23] MEDS: OMEGA ACID ETHYL ESTERS PO SCH ×2 (09:56→20:56)
[2017-08-23] MEDS: PIPERACILLIN-TAZOBACTAM 3.375 GM in DEXTROSE/WATER 1 50ML.BAG IVPB SCH ×2 (09:56→18:32)
[2017-08-23] MEDS ORDERED: MORPHINE ORAL SOLN 10 MG/5 ML CUP PO PRN (11:14)
[2017-08-23 11:16] LABS: Glucose,Whole Blood 174 mg/dL (75-99)
[2017-08-23] MEDS ORDERED: VANCOMYCIN IV PER PHARMACY 1 EACH MISC MISCELLANE PRN (13:29)
[2017-08-23] MEDS ORDERED: VANCOMYCIN 2,000 MG in SODIUM CHLORIDE 0.9% 500 ML IVPB ONE (14:00)
--- NOTE | 2017-08-23 14:39 | P.HPIM ---
History of Present Illness H&P Date: 08/23/17 Chief Complaint: altered mental status, fever 66-year-old male who presented to the emergency room via EMS for altered mental status and fever. The patient has a history of seizures and takes Trileptal. He was seen by his primary care physician, Dr. Gold, approximately one week ago and his dose of Trileptal was decreased to once a day at that time. Apparently the patient started having tremor-like movements of his entire body and had fevers at home of almost 103. Denies shortness of breath. Denies chest pain or pressure. Denies nausea or vomiting. Denies vision changes. 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 Patient is a former cigarette smoker. Chest x-ray: mediastinal and hilar adenopathy, there may be retrocardiac mass as noted on prior exam. Correlate for possible metastatic disease. The patient did undergo a CT of the chest in July 2017 during hospitalization which revealed mediastinal and bronchial adenopathy. There is low density masslike consolidation in the superior segment left lower lobe. Tumor is possible. the patient was followed by pulmonology during that hospitalization and recommended further workup outpatient including PET scan and possible bronchoscopy. It is unknown if the patient followed up with pulmonology for further workup at this point. CT of the brain: negative for an acute process. EKG: sinus tachycardia. Rate 132. Laboratory data: WBC 8.9. Hemoglobin 15.6. Platelet count 219. sodium 143. Potassium 4.8. BUN 16. Current and 1.20. Glucose 107. Troponin negative 1. lactic acid 2.3 testing for influenza A and B was negative Urinalysis: unremarkable The patient was admitted to the hospital under the care of Dr. Gold. Consultations were placed to neurology, pulmonary, and infectious disease. Review of Systems GENERAL: Positive for fever and chills EYES: Denies blurred vision. Denies vision changes. Denies eye pain. EARS, NOSE, MOUTH, & THROAT: Denies headache. Denies sore throat. Denies ear pain. RESPIRATORY: Denies cough. Denies shortness of breath. Denies sputum production. Denies hemoptysis. CARDIOVASCULAR: Denies chest pain or pressure. Denies palpitations. Denies arrhythmias. GASTROINTESTINAL: Denies abdominal pain. Denies diarrhea. Denies constipation. Denies nausea. Denies vomiting. Denies heartburn. Denies blood in the stool. GENITOURINARY: Denies urinary frequency. Denies burning. Denies dysuria. Denies cloudy urine. Denies blood in the urine. MUSCULOSKELETAL: Denies myalgias. Denies joint swelling. Denies decreased range of motion beyond patients baseline. INTEGUMENTARY: Denies pruitis. Denies rash. PSYCHIATRIC: Denies suicidal or homicial ideations. NEUROLOGICAL: Denies numbness. Positive for seizures. Positive for tremors and spastic movements of right upper arm. ENDOCRINE: Denies weight change. Denies polydipsia. Denies polyuria. HEMATOLOGIC: Denies bleeding disorders. 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 Past Anesthesia/Blood Transfusion Reactions: Motion Sickness Additional Past Anesthesia/Blood Transfusion Reaction / Comment(s): CLAUSTERPHOBIC Date of Last Stent Placement:: 2014 Past Psychological History: No Psychological Hx Reported Additional Psychological History / Comment(s): PT LIVES AT HOME WITH HIS KWAN IS INDEPENDANT WITH HIS OWN CARE. 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 Past Drug Use History: None Reported - Past Family History Father Family Medical History: Cancer Additional Family Medical History / Comment(s): FATHER HAD BLADDER CANCER AND OF THIS IN HIS 40'S Mother Family Medical History: Cancer, Dementia Additional Family Medical History / Comment(s): UTERINE CANCER. Mother of dementia at the age of 89yrs. Medications and Allergies Home Medications Medication Instructions Recorded Confirmed Type Aspirin 81 mg PO DAILY 01/12/15 08/22/17 History [place]-3 Acid Ethyl Esters [Lovaza] 1 gm PO BID 01/12/15 08/22/17 History Isosorbide Mononitrate ER [Imdur] 30 mg PO DAILY #30 tab.er.24h 01/17/15 Rx Losartan [Cozaar] 50 mg PO DAILY #30 tab 01/17/15 08/22/17 Rx Metoprolol Tartrate [Lopressor] 25 mg PO DAILY #30 tab 01/17/15 08/22/17 Rx Nitroglycerin Sl Tabs [Nitrostat] 0.4 mg SUBLINGUAL Q5M PRN #25 tab 01/17/1502/01 Rx Prasugrel [Effient] 10 mg PO DAILY #30 tab 01/17/15 08/22/17 Rx Gabapentin 800 mg PO BID 04/18/16 08/22/17 History HYDROcodone/APAP 7.5-325MG [[place] 1 tab PO TID PRN 03/14/17 08/22/17 History 7.5-325] Primidone [Mysoline] 150 mg PO HS 03/14/17 08/22/17 History Atorvastatin Calcium [Lipitor] 80 mg PO HS 07/30/17 08/22/17 History Cyclobenzaprine [Flexeril] 10 mg PO HS PRN 07/30/17 08/22/17 History Donepezil [Aricept] 5 mg PO HS 07/30/17 08/22/17 History Ergocalciferol [Vitamin D2 50,000 unit PO GUERRA 07/30/17 08/22/17 History (DRISDOL)] INSULIN LISPRO (For Pump) [humaLOG See Protocol SQ-PUMP CONTINUOUS 07/30/1702/01 History (For Pump)] Meclizine [Antivert] 25 mg PO TID PRN 07/30/17 08/22/17 History Memantine HCl [Namenda] 10 mg PO BID 07/30/17 08/22/17 History rOPINIRole HCL [Requip] 0.25 mg PO HS 07/30/17 08/22/17 History rOPINIRole HCL [Requip] 0.5 mg PO QAM 07/30/17 08/22/17 History OXcarbazepine [Trileptal] 300 mg PO BID #60 tab 08/10/17 08/22/17 Rx Allergies Allergy/AdvReac Type Severity Reaction Status Date / Time No Known Allergies Allergy Verified 08/22/17 15:25 Physical Exam Vitals: Vital Signs Temp Pulse Pulse Resp BP BP Pulse Ox 08/23/17 08:15 98 F 95 16 174/80 97 08/23/17 04:00 98.8 F 103 H 20 134/76 93 L 08/23/17 00:00 100.0 F H 120 H 20 135/86 94 L 08/22/17 21:30 98.9 F 111/70 08/22/17 21:00 102.1 F H 08/22/17 20:30 101.0 F H 08/22/17 20:00 102.7 F H 116 H 20 133/69 93 L 08/22/17 18:10 100.2 F H 116 H 20 154/72 95 08/22/17 17:45 101 F H 108 H 16 104/64 95 08/22/17 16:02 114 H 16 157/94 95 08/22/17 15:43 102.1 F H 114 H 20 111/63 95 08/22/17 15:15 129 H 16 111/63 95 08/22/17 14:43 102.7 F H 130 H 16 92 L Intake and Output 08/22/17 08/23/17 08/23/17 22:59 06:59 14:59 Intake Total 1200 240 Balance 1200 240 Intake: Intake, IV Titration 1200 Amount Sodium Chloride 0.9% 1, 1200 000 ml @ 150 mls/hr IV . Q6H40M [facility] Rx#:[id number] Oral 240 Other: Voiding Method Diaper Diaper Incontinent Incontinent # Voids 1 2 # Bowel Movements 0 Weight 104.326 kg 116 kg GENERAL: This is a 66-year-old male who appears lethargic and slightly diaphoretic, but arouses easily to verbal stimuli. HEENT: Head is atraumatic, normocephalic. Pupils are equal, round, and reactive to light. Sclerae anicteric. Conjunctivae are clear. Mucus membranes of the mouth are moist. Neck is supple. RESPIRATORY: Diminished throughout. Rales present to bilateral bases. Patient maintaining oxygen saturation greater than 92% on 4 L nasal cannula. No chest wall tenderness is noted on palpation or with deep breathing. CARDIOVASCULAR: Tachycardic. S1 and S2 noted. No systolic or diastolic murmur auscultated. No JVD noted. No S3 or S4 noted. GASTROINTESTINAL: Obese. No distention noted. Abdomen soft and round. Normal active bowel sounds auscultated x 4 quadrants. No pain or tenderness noted upon palpation. INTEGUMENTARY: No cyanosis. No jaundice. No rashes noted. No cellulitis noted. EXTREMITIES: 1+ peripheral pulses. 1-2+ bilateral lower extremity edema. No calf tenderness noted. NEUROLOGIC: Cranial nerves II-XII intact. residual right-sided weakness secondary to previous CVA. Spastic jerking movements noted to right upper extremity. PSYCHIATRIC: Oriented X 3. Appropriate affect. Intact judgement and insight. Results CBC & Chem 7: 08/23/17 05:53 08/23/17 05:53 Labs: Abnormal Lab Results - Last 24 Hours (Table) 08/22/17 08/22/17 08/22/17 Range/Units 14:41 14:45 14:45 Hgb (13.0-17.5) gm/dL Hct (39.0-53.0) % Neutrophils # (1.3-7.7) k/uL Lymphocytes # 0.7 L (1.0-4.8) k/uL APTT (22.0-30.0) sec Creatinine (0.66-1.25) mg/dL Glucose 107 H (74-99) mg/dL POC Glucose (mg/dL) 107 H (75-99) mg/dL Plasma Lactic Acid Abdirizak (0.7-2.0) mmol/L AST (17-59) U/L Alkaline Phosphatase 164 H (38-126) U/L Total Protein (6.3-8.2) g/dL Albumin (3.5-5.0) g/dL 08/22/17 08/22/17 08/22/17 Range/Units 14:45 14:45 18:23 Hgb (13.0-17.5) gm/dL Hct (39.0-53.0) % Neutrophils # (1.3-7.7) k/uL Lymphocytes # (1.0-4.8) k/uL APTT 19.9 L (22.0-30.0) sec Creatinine (0.66-1.25) mg/dL Glucose (74-99) mg/dL POC Glucose (mg/dL) 74 L (75-99) mg/dL Plasma Lactic Acid Abdirizak 2.3 H* (0.7-2.0) mmol/L AST (17-59) U/L Alkaline Phosphatase (38-126) U/L Total Protein (6.3-8.2) g/dL Albumin (3.5-5.0) g/dL 08/22/17 08/22/17 08/23/17 Range/Units 18:36 20:45 05:40 Hgb (13.0-17.5) gm/dL Hct (39.0-53.0) % Neutrophils # (1.3-7.7) k/uL Lymphocytes # (1.0-4.8) k/uL APTT (22.0-30.0) sec Creatinine (0.66-1.25) mg/dL Glucose (74-99) mg/dL POC Glucose (mg/dL) 131 H 155 H (75-99) mg/dL Plasma Lactic Acid Abdirizak 2.2 H* (0.7-2.0) mmol/L AST (17-59) U/L Alkaline Phosphatase (38-126) U/L Total Protein (6.3-8.2) g/dL Albumin (3.5-5.0) g/dL 08/23/17 08/23/17 Range/Units 05:53 05:53 Hgb 12.4 L D (13.0-17.5) gm/dL Hct 36.2 L (39.0-53.0) % Neutrophils # 9.6 H (1.3-7.7) k/uL Lymphocytes # 0.5 L (1.0-4.8) k/uL APTT (22.0-30.0) sec Creatinine 1.40 H (0.66-1.25) mg/dL Glucose 153 H (74-99) mg/dL POC Glucose (mg/dL) (75-99) mg/dL Plasma Lactic Acid Abdirizak (0.7-2.0) mmol/L AST 16 L (17-59) U/L Alkaline Phosphatase (38-126) U/L Total Protein 5.4 L (6.3-8.2) g/dL Albumin 3.1 L (3.5-5.0) g/dL Microbiology - Last 24 Hours (Table) 08/22/17 15:23 Urine Culture - Preliminary Urine,Catheterized Thrombosis Risk Factor Assmnt - Choose All That Apply Any of the Below Risk Factors Present?: Yes Each Factor Represents 1 point: Medical pt on bed rest Other Risk Factors: Yes Each Risk Factor Represents 2 Points: Age 61-74 years Other congenital or acquired thrombophilia - If yes, enter type in comment: No Thrombosis Risk Factor Assessment Total Risk Factor Score: 3 Thrombosis Risk Factor Assessment Level: Moderate Risk Assessment and Plan Plan: ASSESSMENT: Sepsis, present on admission, source unknown, cultures pending at this time Spastic movements/twitching involving mostly the right upper extremity, rule out seizure activity, may be secondary to sepsis Mediastinal and hilar adenopathy with possible retrocardiac mass, Rule out metastatic disease Diabetes mellitus, type II, utilizing insulin pump at home History of 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 Appreciate recommendations and input EEG ordered. Await results Await results of Trileptal level Maintain seizure precautions Pulmonology on consult. Appreciate recommendations and input Infectious disease on consult. Appreciate recommendations and input Will begin Zosyn every 8 hours until evaluated by infectious disease Tylenol when necessary for fevers Continue IV fluids at 150 mL an hour Obtain hemoglobin A1c Capillary blood glucose accu-checks AC/HS NovoLog sliding scale insulin coverage AC/HS Patient may use his insulin pump once he is more awake and cognitive Await results of cultures Home meds as appropriate Monitor labs GI prophylaxis: Protonix 40 mg PO Daily DVT prophylaxis: Heparin 5000 units subcu every 8 hours Monitor vital signs and address as appropriate Discharge planning: Patient to return home when stable. Patient lives with . Will re-evaluate closer to discharge Further recommendations pending patient's course Nurse practitioner note has been reviewed by physician. Signing provider agrees with the documented findings, assessment, and plan of care.
[2017-08-23] MEDS: ACETAMINOPHEN TAB 325 MG TAB PO PRN (15:20)
[2017-08-23] MEDS: HEPARIN SODIUM,PORCINE 5,000 UNIT/ML 1 ML VIAL SQ SCH (15:21)
[2017-08-23 16:05] LABS: Hemoglobin A1C 7.7 % (4.0-6.0)
[2017-08-23 16:30] LABS: Glucose,Whole Blood 183 mg/dL (75-99)
--- NOTE | 2017-08-23 16:42 | P.CNPUL ---
History of Present Illness Consult date: 08/23/17 Reason for consult: dyspnea, pneumonia History of present illness: I am seeing this 66-year-old female patient regarding fever and concern of a left lung pneumonia. The story is somewhat complicated. The patient was hospitalized approximately a month ago and he apparently had seizure-like activity and he was started on Trileptal. Unfortunately his condition was getting worse and the patient was getting progressively more weak and lethargic and over the past 24 hours started having entire body shakes and fevers with a temperature as high as 103. He was also having some congested cough without any sputum production. For that reason the patient was brought back to the hospital. During this current hospital stay, the patient was already has been evaluated by neurology and the recommendations was to continue the Trileptal an EEG is in progress. From the pulmonary standpoint, I reviewed the chest x-ray and there is left perihilar fullness and left basilar infiltrate. Going back to the previous x-ray and previous CAT scan of the chest from 08/01/2017, the patient had an irregular 4 cm low-density masslike consolidation of the left lower lobe and the superior segment. There was also some patchy medley new density in the left and the right lung base. There was also scattered mediastinal lymphadenopathy. In fact her multiple paratracheal lymph nodes visioning up to 2.3 cm in size. There is also multiple enlarged bilateral bronchial lymph nodes measuring up to 1.5 cm in size. Tumor/malignancy was considered although no further intervention was done and the patient was discharged home antibiotics to be followed up on outpatient basis. In fact he had a follow-up today to see us at the pulmonary clinic on outpatient basis. I reviewed the current chest x-ray and there is obvious changes and left perihilar and the left lower lobe area. For that reason the patient was started on antibiotics pressure with his ongoing fever and currently is on a combination of Zosyn and vancomycin and addition to bronchodilators around the clock. He is less lethargic. His mentation is improved. No focal logical deficits. Normal speech. White cell count is not elevated. He has chronic renal failure with a baseline creatinine of 1.4 which has remained essentially unchanged. Lactic acid level was up at 2.3 at time of admission and currently is down to 1.4. Review of Systems GENERAL: Positive for fever and chills EYES: Denies blurred vision. Denies vision changes. Denies eye pain. EARS, NOSE, MOUTH, & THROAT: Denies headache. Denies sore throat. Denies ear pain. RESPIRATORY: Patient has a congested cough. Denies shortness of breath. Denies sputum production. Denies hemoptysis. CARDIOVASCULAR: Denies chest pain or pressure. Denies palpitations. Denies arrhythmias. GASTROINTESTINAL: Denies abdominal pain. Denies diarrhea. Denies constipation. Denies nausea. Denies vomiting. Denies heartburn. Denies blood in the stool. GENITOURINARY: Denies urinary frequency. Denies burning. Denies dysuria. Denies cloudy urine. Denies blood in the urine. MUSCULOSKELETAL: Denies myalgias. Denies joint swelling. Denies decreased range of motion beyond patients baseline. INTEGUMENTARY: Denies pruitis. Denies rash. PSYCHIATRIC: Denies suicidal or homicial ideations. NEUROLOGICAL: Denies numbness. Positive for seizures. Positive for tremors and spastic movements of right upper arm. ENDOCRINE: Denies weight change. Denies polydipsia. Denies polyuria. HEMATOLOGIC: Denies bleeding disorders. 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 Past Anesthesia/Blood Transfusion Reactions: Motion Sickness Additional Past Anesthesia/Blood Transfusion Reaction / Comment(s): CLAUSTERPHOBIC Date of Last Stent Placement:: 2014 Past Psychological History: No Psychological Hx Reported Additional Psychological History / Comment(s): PT LIVES AT HOME WITH HIS KWAN IS INDEPENDANT WITH HIS OWN CARE. USED TO WORK FOR [employer] no home care services, has insulin pump/glucometer Smoking Status: Former smoker Past Alcohol Use History: None Reported Additional Past Alcohol Use History / Comment(s): STARTED SMOKING AROUND AGE 48( 1998) SMOKE A PIPE OR CIGARS 2-3 times a week but quit 04/2016. Past Drug Use History: None Reported - Past Family History Father Family Medical History: Cancer Additional Family Medical History / Comment(s): FATHER HAD BLADDER CANCER AND OF THIS IN HIS 40'S Mother Family Medical History: Cancer, Dementia Additional Family Medical History / Comment(s): UTERINE CANCER. Mother of dementia at the age of 89yrs. Medications and Allergies Home Medications Medication Instructions Recorded Confirmed Type Aspirin 81 mg PO DAILY 01/12/15 08/22/[address]-3 Acid Ethyl Esters [Lovaza] 1 gm PO BID 01/12/15 08/22/17 History Isosorbide Mononitrate ER [Imdur] 30 mg PO DAILY #30 tab.er.24h 01/17/15 Rx Losartan [Cozaar] 50 mg PO DAILY #30 tab 01/17/15 08/22/17 Rx Metoprolol Tartrate [Lopressor] 25 mg PO DAILY #30 tab 01/17/15 08/22/17 Rx Nitroglycerin Sl Tabs [Nitrostat] 0.4 mg SUBLINGUAL Q5M PRN #25 tab 01/17/1502/01 Rx Prasugrel [Effient] 10 mg PO DAILY #30 tab 01/17/15 08/22/17 Rx Gabapentin 800 mg PO BID 04/18/16 08/22/17 History HYDROcodone/APAP 7.5-325MG [Dixie 1 tab PO TID PRN 03/14/17 08/22/17 History 7.5-325] Primidone [Mysoline] 150 mg PO HS 03/14/17 08/22/17 History Atorvastatin Calcium [Lipitor] 80 mg PO HS 07/30/17 08/22/17 History Cyclobenzaprine [Flexeril] 10 mg PO HS PRN 07/30/17 08/22/17 History Donepezil [Aricept] 5 mg PO HS 07/30/17 08/22/17 History Ergocalciferol [Vitamin D2 50,000 unit PO GUERRA 07/30/17 08/22/17 History (DRISDOL)] INSULIN LISPRO (For Pump) [humaLOG See Protocol SQ-PUMP CONTINUOUS 07/30/1702/01 History (For Pump)] Meclizine [Antivert] 25 mg PO TID PRN 07/30/17 08/22/17 History Memantine HCl [Namenda] 10 mg PO BID 07/30/17 08/22/17 History rOPINIRole HCL [Requip] 0.25 mg PO HS 07/30/17 08/22/17 History rOPINIRole HCL [Requip] 0.5 mg PO QAM 07/30/17 08/22/17 History OXcarbazepine [Trileptal] 300 mg PO BID #60 tab 08/10/17 08/22/17 Rx Allergies Allergy/AdvReac Type Severity Reaction Status Date / Time No Known Allergies Allergy Verified 08/22/17 15:25 Physical Exam Vitals: Vital Signs Temp Pulse Pulse Resp BP BP Pulse Ox 08/23/17 08:15 98 F 95 16 174/80 97 08/23/17 04:00 98.8 F 103 H 20 134/76 93 L 08/23/17 00:00 100.0 F H 120 H 20 135/86 94 L 08/22/17 21:30 98.9 F 111/70 08/22/17 21:00 102.1 F H 08/22/17 20:30 101.0 F H 08/22/17 20:00 102.7 F H 116 H 20 133/69 93 L 08/22/17 18:10 100.2 F H 116 H 20 154/72 95 08/22/17 17:45 101 F H 108 H 16 104/64 95 Intake and Output 08/23/17 08/23/17 08/23/17 06:59 14:59 22:59 Intake Total 1200 480 Output Total 800 Balance 1200 -320 Intake: Intake, IV Titration 1200 Amount Sodium Chloride 0.9% 1, 1200 000 ml @ 150 mls/hr IV . Q6H40M [facility] Rx#:[id number] Oral 480 Output: Urine 800 Other: Voiding Method Diaper Incontinent # Voids 2 Weight 116 kg GENERAL EXAM: Alert, active, comfortable in no apparent distress. HEAD: Normocephalic. EYES: Normal reaction of pupils, equal size. NOSE: Clear with pink turbinates. THROAT: No erythema or exudates. NECK: No masses, no JVD. CHEST: No chest wall deformity. LUNGS: Equal air entry with crackles in the bilateral posterior bases. CVS: S1 and S2 normal with no audible murmur, regular rhythm. ABDOMEN: No hepatosplenomegaly, normal bowel sounds, no guarding or rigidity. SPINE: No scoliosis or deformity SKIN: No rashes CENTRAL NERVOUS SYSTEM: No focal deficits, tone is normal in all 4 extremities. EXTREMITIES: There is no peripheral edema. No clubbing, no cyanosis. Peripheral pulses are intact. Results - Laboratory Findings CBC and BMP: 08/23/17 05:53 08/23/17 05:53 PT/INR, D-dimer PT 9.8 sec (9.0-12.0) 08/22/17 14:45 INR 1.0 (<1.2) 08/22/17 14:45 Abnormal lab findings: Abnormal Labs 08/22/17 08/22/17 08/22/17 14:41 14:45 14:45 Hgb Hct Neutrophils # Lymphocytes # 0.7 L APTT Creatinine Glucose 107 H POC Glucose (mg/dL) 107 H Plasma Lactic Acid Abdirizak AST Alkaline Phosphatase 164 H Total Protein Albumin 08/22/17 08/22/17 08/22/17 14:45 14:45 18:23 Hgb Hct Neutrophils # Lymphocytes # APTT 19.9 L Creatinine Glucose POC Glucose (mg/dL) 74 L Plasma Lactic Acid Abdirizak 2.3 H* AST Alkaline Phosphatase Total Protein Albumin 08/22/17 08/22/17 08/23/17 18:36 20:45 05:40 Hgb Hct Neutrophils # Lymphocytes # APTT Creatinine Glucose POC Glucose (mg/dL) 131 H 155 H Plasma Lactic Acid Abdirizak 2.2 H* AST Alkaline Phosphatase Total Protein Albumin 08/23/17 08/23/17 08/23/17 05:53 05:53 11:10 Hgb 12.4 L D Hct 36.2 L Neutrophils # 9.6 H Lymphocytes # 0.5 L APTT Creatinine 1.40 H Glucose 153 H POC Glucose (mg/dL) 174 H Plasma Lactic Acid Abdirizak AST 16 L Alkaline Phosphatase Total Protein 5.4 L Albumin 3.1 L - Diagnostic Findings Chest x-ray: image reviewed Assessment and Plan Plan: Assessment 1 acute febrile episode with altered mentation, likely infection/septic in nature currently under investigation. Currently hemodynamically stable and the patient is afebrile without any significant leukocytosis. Obviously there is a concern of a left perihilar/lower lobe pneumonia based on the chest x-ray findings 2 recent evaluation for a left lung pneumonia as the patient is a masslike consolidation in the severe several of the left lower lobe in addition to nonspecific mediastinal lymphadenopathy. Malignancy cannot be completely excluded 3 seizure disorder currently on Trileptal 4 hypertension 5 hyperlipidemia 6 diabetes mellitus with peripheral neuropathy 7 chronic renal failure stage III kidney disease 8 coronary artery disease with previous coronary intervention and stenting 9 prostate cancer with previous radiation therapy/brachytherapy/radiation seeds 10 previous history of CVA 11 peripheral neuropathy 12 degenerative disc disease 13 obesity with a BMI of 36.7 Plan Agree on the current antibiotic coverage. Cover the patient accommodation of Zosyn and vancomycin. Monitor fever pattern. Monitor cultures. Monitor the chest x-ray progression. May consider repeating the CAT scan of the chest if no clearing of the left perihilar/lower lobe consolidation. Neurology to complete the workup including a repeat EEG. Recommendations are to continue the Trileptal for now. CAT scan of the brain is negative. Outpatient medication of been all resumed. We'll continue to follow.
--- NOTE | 2017-08-23 16:45 | CONS ---
CONSULTATION DATE OF SERVICE: 08/23/2017 REASON FOR CONSULTATION: Sepsis and bacteremia. HISTORY OF PRESENT ILLNESS: The patient is a 66-year-old male brought into the ER at [facility] yesterday afternoon with the chief complaints of difficulty in breathing and mental status changes. Apparently the patient was noted to have a fever of 102.7 degrees Fahrenheit and the patient had chills and cough. Patient did say his symptoms have been going on for almost a week. Initially they started with mostly a cough that has gradually increased in intensity and is productive of some yellow to brown sputum but no hemoptysis. The patient denies having significant chest pain. Denies any difficulty swallowing. No nausea, no vomiting and no significant URI symptoms. No abdominal pain. No diarrhea. No swelling or redness of his extremities. With these symptoms, the patient was seen in the ER. On presentation he had a fever of 102.7. The patient was tachycardic, heart rate of 116, and tachypneic, breathing around 20 breaths per minute. However no significant hypertension was noticed. Workup in the ER included a CBC; however, his white count was 8.9, repeated 10.6. The patient did have a UA that was negative. Influenza serology was negative. The patient had a chest x- ray which showed mediastinal and hilar adenopathy, maybe a retrocardiac mass as noted on a prior exam. The patient did have blood cultures drawn. He was admitted to the hospital and started on Zosyn. With the blood cultures coming back positive, Infectious Disease was consulted for further recommendations regarding antibiotic therapy. REVIEW OF SYSTEMS: CONSTITUTIONAL: Positive for weakness along with a fever. EYES: No complaint. ENT: No complaint. RESPIRATORY: As per HPI. CARDIOVASCULAR: No complaint. GENITOURINARY: No complaint. GASTROINTESTINAL: No complaint. MUSCULOSKELETAL: No complaint. INTEGUMENTARY: No complaint. PSYCHOLOGICAL: As per HPI. INTEGUMENTARY: No complaint. NEUROLOGICAL: No complaint. PAST MEDICAL HISTORY: 1. Coronary artery disease. 2. CVA, TIA. 3. Diabetes mellitus. 4. Hypertension. 5. Hyperlipidemia. 6. PR. 7. Renal insufficiency. 8. Pneumonia. PAST SURGICAL HISTORY: 1. PTCA with stent. 2. Colonoscopy. 3. Lumbar epidural injections. SOCIAL HISTORY: He did have significant smoking; quit back in April 2016. No drinking or drug use. FAMILY HISTORY: Father with history of bladder cancer. Mother with history of uterine cancer and dementia. ALLERGIES: NO KNOWN DRUG ALLERGIES. CURRENT MEDICATIONS: 1. Requip. 2. Mysoline. 3. Piperacillin tazobactam. 4. Protonix. 5. Trileptal. 6. Zofran. 7. Nitrostat. 8. Narcan. 9. Morphine sulfate. 10.Lopressor. 11.Namenda. 12.Antivert. 13.Imdur. 14.NovoLog. 15.Heparin. 16.Mucinex. 17.Vitamin D2. 18.Aricept. 19.Flexeril. 20.Lipitor. 21.Aspirin. 22.Sunset. 23.Tylenol. PHYSICAL EXAMINATION: Blood pressure is 174/80 with a pulse of 95, temperature of 98. He is 97% on 4 L nasal cannula. General description is an elderly male lying in bed in no distress. No tachypnea or accessory muscle respiration use. HEENT examination shows slight pallor. No scleral icterus. Oral mucosa is dry. No pharyngeal erythema or thrush. NECK: Trachea is central. There is no thyromegaly. LUNGS: Unlabored breathing with some coarse breath sounds in the bases. No wheeze. HEART: S1, S2. Regular rate and rhythm. ABDOMEN: Soft. There is no tenderness. No organomegaly. EXTREMITIES: No edema of feet. SKIN EXAMINATION: No rash or mass palpable. Neurologically patient is awake, alert, oriented x2. Mood and affect normal. LABS: Hemoglobin is 12.4, white count of 10.6, BUN of 17, creatinine 1.40. Lactic acid elevated at 2.2. Electrolytes have been normal. Liver enzymes are normal. Urine was negative. Influenza serology was negative. Chest x-ray with a retrocardiac opacity. DIAGNOSTIC IMPRESSION AND PLAN: Patient admitted to hospital with sepsis in a patient who did have a fever of 102 degrees Fahrenheit. The patient did have a congested cough, bringing up some sputum with evidence of left retrocardiac opacity, likely suspicious for pneumonia, now with evidence of Gram-positive bacteremia. It could be either a streptococcus pneumonia the likely cause of pneumonia or an MRSA community-associated that is not entirely excluded. There is no clear history of any nausea or vomiting or suspicion for an aspiration pneumonia, and the patient has no other clinical focus of infection. His abdomen was soft on clinical examination; no evidence of any cellulitis or joint swelling. The patient did have evidence of lactic acidosis on admission and some borderline kidney function. That will put him at high risk of toxicity from many of the antibiotics being currently considered for treatment of his underlying infection and sepsis. PLAN: 1. Blood cultures will be repeated to make sure there is no evidence of any persistent bacteremia. 2. Vancomycin b.i.d., Pharmacy to dose; target of 15, while watching his kidney function very closely. 3. Zosyn to be continued while waiting for the final ID of this pathogen. 4. Depending upon the clinical response as well as cultures, will adjust the medication further if needed. Thank you for this consultation. Will follow this patient along with you. MMODL / IJN: [id number] /
[2017-08-23 20:47] LABS: Glucose,Whole Blood 200 mg/dL (75-99)
[2017-08-23] MEDS: ATORVASTATIN 80 MG TAB PO SCH (20:55)
[2017-08-23] MEDS: DONEPEZIL 5 MG TAB PO SCH (20:55)
[2017-08-23] MEDS: PRIMIDONE 50 MG TAB PO SCH (20:57)
--- NOTE | 2017-08-23 21:43 | P.PN ---
Subjective Progress Note Date: 08/23/17 This patient is a 66-year-old male who was admitted to Hospital with symptoms of altered mental status and fever. He has a history of underlying seizure disorder for which he has been taking Trileptal. He was having increasing symptoms of tremor and questionable seizure activity yesterday on examination. We have recommended a EEG test to be completed today for further evaluation. His Trileptal level is still pending from the laboratory. He was 6. In seeing severe tremulousness with a high-grade fever at home 103F. He denied any episode of loss of consciousness with these episodes of tremulousness. He underwent a computed tomography scan of the chest in July 2017 which revealed mediastinal adenopathy. He is being evaluated for this by pulmonary medicine and was recommended to have a PET scan done. He did undergo a computed tomography scan of the brain yesterday on admission which was normal with no acute process identified. At this time we would recommend for him to complete his EEG which will be reviewed. He is afebrile today and will continue on current antibiotics. Patient is doing much better today in terms of his alertness and able to follow simple commands. Patient was seen by infectious disease and is being treated for suspicion of pneumonia. Sputum culture revealed gram-positive bacteremia. Patient has been placed on vancomycin with close monitoring of his kidney function. Zosyn is to be continued at this time as well. Overall the patient is showing improvement in his mental status. He has had no further tremors suggesting his initial presentation was a febrile illness producing the tremulousness that was noted yesterday on initial evaluation. Patient underwent a routine EEG today which was reviewed and fails to reveal any evidence for epileptiform discharges. Patient is being evaluated for left lung pneumonia and masslike consolidation and mediastinal lymphadenopathy. Pulmonary medicine has seen the patient and malignancy cannot be completely excluded. Patient has had no witnessed seizure activity since admission to the hospital. His Trileptal level is still pending from the laboratory. We will continue to monitor his progress closely during this admission. Objective - Vital Signs Vital signs: Vital Signs Temp 98 F 08/23/17 08:15 Pulse 95 08/23/17 08:15 Resp 16 08/23/17 08:15 BP 174/80 08/23/17 08:15 Pulse Ox 97 08/23/17 08:15 Intake & Output 08/22/17 08/23/17 08/23/17 18:59 06:59 18:59 Intake Total 1200 480 Output Total 800 Balance 1200 -320 Weight 104.326 kg 116 kg Intake: Intake, IV Titration 1200 Amount Sodium Chloride 0.9% 1, 1200 000 ml @ 150 mls/hr IV . Q6H40M [facility] Rx#:[id number] Oral 480 Output: Urine 800 Other: Voiding Method Diaper Incontinent # Voids 1 2 # Bowel Movements 0 - Exam Physical examination: PHYSICAL EXAMINATION: Patient is resting comfortably in bed. VITAL SIGNS: Blood pressure is [174/80]. Heart rate is [95]. Respiration is [16] . Temperature is [98.0]. HEENT: Head is atraumatic, neck is supple, there were no carotid bruits. CHEST: Lungs are clear to auscultation and percussion. CARDIAC: S1, S2 normal rate and rhythm. There is no murmur. ABDOMEN: Soft and nontender. Bowel sounds are present. EXTREMITIES: There is no pedal edema. Peripheral pulses are present. Neurological examination: Patient's neurological examination is unchanged from yesterday. Patient is more awake and alert today. He is following simple commands. He has no evidence of any body tremors or tremulousness as was noted yesterday. His neurological examination is nonfocal. - Labs CBC & Chem 7: 08/23/17 05:53 08/23/17 05:53 Labs: Abnormal Lab Results - Last 24 Hours (Table) 08/22/17 08/22/17 08/22/17 Range/Units 18:23 18:36 20:45 Hgb (13.0-17.5) gm/dL Hct (39.0-53.0) % Neutrophils # (1.3-7.7) k/uL Lymphocytes # (1.0-4.8) k/uL Creatinine (0.66-1.25) mg/dL Glucose (74-99) mg/dL POC Glucose (mg/dL) 74 L 131 H (75-99) mg/dL Plasma Lactic Acid Abdirizak 2.2 H* (0.7-2.0) mmol/L AST (17-59) U/L Total Protein (6.3-8.2) g/dL Albumin (3.5-5.0) g/dL 08/23/17 08/23/17 08/23/17 Range/Units 05:40 05:53 05:53 Hgb 12.4 L D (13.0-17.5) gm/dL Hct 36.2 L (39.0-53.0) % Neutrophils # 9.6 H (1.3-7.7) k/uL Lymphocytes # 0.5 L (1.0-4.8) k/uL Creatinine 1.40 H (0.66-1.25) mg/dL Glucose 153 H (74-99) mg/dL POC Glucose (mg/dL) 155 H (75-99) mg/dL Plasma Lactic Acid Abdirizak (0.7-2.0) mmol/L AST 16 L (17-59) U/L Total Protein 5.4 L (6.3-8.2) g/dL Albumin 3.1 L (3.5-5.0) g/dL 08/23/17 Range/Units 11:10 Hgb (13.0-17.5) gm/dL Hct (39.0-53.0) % Neutrophils # (1.3-7.7) k/uL Lymphocytes # (1.0-4.8) k/uL Creatinine (0.66-1.25) mg/dL Glucose (74-99) mg/dL POC Glucose (mg/dL) 174 H (75-99) mg/dL Plasma Lactic Acid Abdirizak (0.7-2.0) mmol/L AST (17-59) U/L Total Protein (6.3-8.2) g/dL Albumin (3.5-5.0) g/dL Microbiology - Last 24 Hours (Table) 08/22/17 14:45 Blood Culture Gram Stain - Preliminary Blood 08/22/17 14:45 Blood Culture - Final Blood 08/22/17 15:23 Urine Culture - Preliminary Urine,Catheterized Assessment and Plan (1) Fever Current Visit: Yes Status: Acute Code(s): R50.9 - FEVER, UNSPECIFIED SNOMED Code(s): 111444543 (2) Sepsis Current Visit: Yes Status: Acute Code(s): A41.9 - SEPSIS, UNSPECIFIED ORGANISM SNOMED Code(s): 67454689 (3) Seizure Current Visit: No Status: Acute Code(s): R56.9 - UNSPECIFIED CONVULSIONS SNOMED Code(s): 82511473 (4) CAD (coronary artery disease) Current Visit: No Status: Chronic Code(s): I25.10 - ATHSCL HEART DISEASE OF [place] CORONARY ARTERY W/O ANG PCTRS SNOMED Code(s): 17456910 Plan: This patient is a 66-year-old male admitted with altered mental status and fever. He was found to have evidence of pneumonia and is been treated by infectious disease. He was having evidence of tremors yesterday suggesting possibility of seizures versus septic picture producing tremulousness. He underwent a computed tomography scan of the brain which was negative for any acute changes. He underwent a routine EEG today which is reviewed and is moderately slow with no evidence of any epileptiform discharges. The patient's mental status is much improved today. He has had no further twitching or muscle jerking. We are still awaiting his Trileptal blood level to return from the laboratory. We will continue to follow his progress closely during this admission. His overall prognosis at this time remains guarded.
[2017-08-24] MEDS: LORazepam 2 MG/ML INJ IV PRN (00:29)
[2017-08-24] MEDS: SODIUM CHLORIDE 0.9% 1,000 ML IV SCH ×4 (02:30→20:57)
[2017-08-24] MEDS: VANCOMYCIN 2,000 MG in SODIUM CHLORIDE 0.9% 500 ML IVPB SCH (05:21)
[2017-08-24 05:42] LABS: Glucose,Whole Blood 166 mg/dL (75-99)
[2017-08-24] MEDS: IPRATROPIUM-ALBUTEROL 3 ML NEB INHALATION PRN ×4 (05:50→20:17)
[2017-08-24] MEDS: INSULIN ASPART 100 UNIT/ML 1 ML 10 ML VIAL SQ SCH ×4 (06:38→20:36)
[2017-08-24] MEDS: PANTOPRAZOLE 40 MG TABLET PO SCH (06:39)
[2017-08-24 07:01] LABS: Calcium 8.7 mg/dL (8.4-10.2); Potassium 4.3 mmol/L (3.5-5.1)
[2017-08-24] MEDS: HEPARIN SODIUM,PORCINE 5,000 UNIT/ML 1 ML VIAL SQ SCH ×4 (08:18→23:20)
[2017-08-24] MEDS: ASPIRIN 81 MG PO SCH (08:19)
[2017-08-24] MEDS: PRASUGREL 10 MG TAB PO SCH (08:19)
[2017-08-24] MEDS: LOSARTAN 50 MG TAB PO SCH (08:19)
[2017-08-24] MEDS: ISOSORBIDE MONONITRATE ER 30 MG TAB.ER.24H PO SCH (08:19)
[2017-08-24] MEDS: MEMANTINE 5 MG TAB PO SCH ×2 (08:21→20:38)
[2017-08-24] MEDS: GABAPENTIN 400 MG CAP PO SCH ×2 (08:21→20:38)
[2017-08-24] MEDS: METOPROLOL TARTRATE 25 MG TAB PO SCH (08:22)
[2017-08-24] MEDS: OMEGA ACID ETHYL ESTERS PO SCH ×2 (08:23→20:38)
[2017-08-24] MEDS: OXcarbazepine 300 MG TAB PO SCH ×2 (08:23→20:38)
[2017-08-24] MEDS: PIPERACILLIN-TAZOBACTAM 3.375 GM in DEXTROSE/WATER 1 50ML.BAG IVPB SCH ×4 (08:27→23:20)
--- NOTE | 2017-08-24 11:42 | EEG ---
ELECTROENCEPHALOGRAM REPORT DATE OF EE08/23/2017 ELECTROENCEPHALOGRAPHIC EXAMINATION REPORT: INDICATION FOR EXAMINATION: This patient is a 66-year-old male with history of seizure disorder. Patient admitted now with fever and tremors. EEG to rule out seizure disorder. AGE: 66. EEG FINDINGS: A routine 21-channel awake digital EEG recording was accomplished utilizing the 10-20 international system with bipolar and referential montages. The background activity in the most alert resting state consists of a low to medium amplitude, poorly developed and poorly sustained 5-6 Hz activity over the posterior head regions. This posterior rhythm attenuates minimally to eye opening. There is a small amount of low amplitude 18-20 Hz beta activity seen maximally over the anterior head regions. Muscle and movement artifact was observed on a few occasions during the tracing. Hyperventilation was not performed. Photic stimulation at flash frequencies of 2-30 Hz produced a minimal occipital driving response. No epileptiform discharges were seen. IMPRESSION: This EEG is moderately abnormal in a diffuse fashion due to slowing of the EEG background. The EEG failed to reveal any focal, lateralized, or epileptiform abnormalities. Clinical correlation is recommended. MMODL / IJN: [id number] /
[2017-08-24 11:46] LABS: Glucose,Whole Blood 171 mg/dL (75-99)
--- NOTE | 2017-08-24 12:28 | XR ---
EXAMINATION TYPE: XR chest 1V portable DATE OF EXAM: 08/24/2017 CLINICAL HISTORY: Difficulty breathing progress study. TECHNIQUE: Single AP portable upright view of the chest is obtained. COMPARISON: Chest x-ray from [address] chest August 01, 2017 FINDINGS: There is persistent left infrahilar opacity. There is new right medial basilar opacity. Ab normal thoracic adenopathy noted on recent CT bilateral hilar and subcarinal regions. No large pleura l effusion or pneumothorax is present. Somewhat low lung volumes redemonstrated. Cardiac silhouette s ize is stable and within normal limits. Osseous structures are intact. IMPRESSION: Persistent left perihilar/infrahilar infiltrate. New right medial basilar infiltrate and/ or atelectasis. Background abnormal thoracic adenopathy noted on CT.
--- NOTE | 2017-08-24 15:11 | P.PN ---
Subjective Progress Note Date: 08/24/17 This patient is a 66-year-old male who was admitted to Hospital with symptoms of altered mental status and fever. He has a history of underlying seizure disorder for which he has been taking Trileptal. He was having increasing symptoms of tremor and questionable seizure activity yesterday on examination. We have recommended a EEG test to be completed today for further evaluation. His Trileptal level is still pending from the laboratory. He was 6. In seeing severe tremulousness with a high-grade fever at home 103F. He denied any episode of loss of consciousness with these episodes of tremulousness. He underwent a computed tomography scan of the chest in July 2017 which revealed mediastinal adenopathy. He is being evaluated for this by pulmonary medicine and was recommended to have a PET scan done. He did undergo a computed tomography scan of the brain yesterday on admission which was normal with no acute process identified. At this time we would recommend for him to complete his EEG which will be reviewed. He is afebrile today and will continue on current antibiotics. Patient is doing much better today in terms of his alertness and able to follow simple commands. Patient was seen by infectious disease and is being treated for suspicion of pneumonia. Sputum culture revealed gram-positive bacteremia. Patient has been placed on vancomycin with close monitoring of his kidney function. Zosyn is to be continued at this time as well. Overall the patient is showing improvement in his mental status. He has had no further tremors suggesting his initial presentation was a febrile illness producing the tremulousness that was noted yesterday on initial evaluation. Patient underwent a routine EEG today which was reviewed and fails to reveal any evidence for epileptiform discharges. Patient is being evaluated for left lung pneumonia and masslike consolidation and mediastinal lymphadenopathy. Pulmonary medicine has seen the patient and malignancy cannot be completely excluded. Patient has had no witnessed seizure activity since admission to the hospital. His Trileptal level is still pending from the laboratory. We checked again today with the laboratory and the results are still pending. There is sent out test. Patient apparently was slightly fatigued and tired this afternoon. He did not eat much of his lunch. is at bedside and states he has not had any further tremors or seizure- like activity. We will continue to monitor his progress closely during this admission. Objective - Vital Signs Vital signs: Vital Signs Temp 97.7 F 08/24/17 08:00 Pulse 96 08/24/17 12:07 Resp 18 08/24/17 12:00 BP 130/57 08/24/17 12:00 Pulse Ox 92 L 08/24/17 12:00 Intake & Output 08/23/17 08/24/17 08/24/17 18:59 06:59 18:59 Intake Total 2470 477 Output Total 800 Balance 1670 477 Weight 123 kg Intake: Intake, IV Titration 1750 Amount Piperacillin-Tazobactam 3 50 .375 gm In Dextrose/Water 1 50ml.bag @ 12.5 mls/hr IVPB Q8HR PA Rx#: [id number] Sodium Chloride 0.9% 1, 1200 000 ml @ 150 mls/hr IV . Q6H40M PA Rx#:[id number] Vancomycin 2,000 mg In 500 Sodium Chloride 0.9% 500 ml @ 167 mls/hr IVPB Q24H PA Rx#:[id number] Oral 720 477 Output: Urine 800 Other: Voiding Method Diaper Diaper Urinal Incontinent Incontinent # Voids 3 3 - Exam Physical examination: PHYSICAL EXAMINATION: Patient is resting comfortably in bed. VITAL SIGNS: Blood pressure is [1:30/57]. Heart rate is [84]. Respiration is [18 ]. Temperature is [97.7]. HEENT: Head is atraumatic, neck is supple, there were no carotid bruits. CHEST: Lungs are clear to auscultation and percussion. CARDIAC: S1, S2 normal rate and rhythm. There is no murmur. ABDOMEN: Soft and nontender. Bowel sounds are present. EXTREMITIES: There is no pedal edema. Peripheral pulses are present. Neurological examination: Patient's neurological examination is unchanged from yesterday. Patient is sleeping this afternoon in bed and is not in any acute distress. He is following simple commands. He has no evidence of any body tremors or tremulousness as was noted yesterday. His neurological examination is nonfocal. - Labs CBC & Chem 7: 08/23/17 05:53 08/24/17 05:45 Labs: Abnormal Lab Results - Last 24 Hours (Table) 08/23/17 08/23/17 08/23/17 Range/Units 05:53 16:06 20:41 Creatinine (0.66-1.25) mg/dL Glucose (74-99) mg/dL POC Glucose (mg/dL) 183 H 200 H (75-99) mg/dL Hemoglobin A1c 7.7 H (4.0-6.0) % 08/24/17 08/24/17 08/24/17 Range/Units 05:40 05:45 11:36 Creatinine 1.37 H (0.66-1.25) mg/dL Glucose 160 H (74-99) mg/dL POC Glucose (mg/dL) 166 H 171 H (75-99) mg/dL Hemoglobin A1c (4.0-6.0) % Microbiology - Last 24 Hours (Table) 08/22/17 12:30 Gram Stain - Preliminary Sputum 08/22/17 15:23 Urine Culture - Final Urine,Catheterized 08/22/17 14:45 Blood Culture Gram Stain - Preliminary Blood 08/22/17 14:45 Blood Culture - Final Blood Assessment and Plan (1) Fever Current Visit: Yes Status: Acute Code(s): R50.9 - FEVER, UNSPECIFIED SNOMED Code(s): 357724559 (2) Sepsis Current Visit: Yes Status: Acute Code(s): A41.9 - SEPSIS, UNSPECIFIED ORGANISM SNOMED Code(s): 18262157 (3) Seizure Current Visit: No Status: Acute Code(s): R56.9 - UNSPECIFIED CONVULSIONS SNOMED Code(s): 73275647 (4) CAD (coronary artery disease) Current Visit: No Status: Chronic Code(s): I25.10 - ATHSCL HEART DISEASE OF [place] CORONARY ARTERY W/O ANG PCTRS SNOMED Code(s): 50759956 Plan: This patient is a 66-year-old male admitted with altered mental status and fever. He was found to have evidence of pneumonia and is been treated by infectious disease. He was having evidence of tremors yesterday suggesting possibility of seizures versus septic picture producing tremulousness. He underwent a computed tomography scan of the brain which was negative for any acute changes. He underwent a routine EEG today which is reviewed and is moderately slow with no evidence of any epileptiform discharges. The patient's mental status is much improved today. He has had no further twitching or muscle jerking. We are still awaiting his Trileptal blood level to return from the laboratory. We checked again with the laboratory this morning and it is still pending. Patient has not had any active seizure like events. He is being treated for his pneumonia and pulmonary medicine has been consulted and there recommendations are appreciated. We will continue to follow his progress closely during this admission. His overall prognosis at this time remains guarded.
--- NOTE | 2017-08-24 15:24 | P.PN ---
Subjective Progress Note Date: 08/24/17 On 08/24/2017 the patient is being seen for a follow-up. He has a congested cough. He is also short of breath even at rest. He is bronchospastic and wheezy. The patient had a rough night throughout the night with respiratory distress. His mentation is appropriate however is very shaky and weak and he has lost and coordination. For example is having difficulties holding his nebulizer To continue the breathing treatments. 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 He has increased tremors yet there are no seizure activity noted. I repeated the chest x-ray and there is persistent left perihilar infiltrate along with a new right medial basilar infiltrate/ atelectasis. There is also left hilar prominence. The patient was febrile throughout the night yesterday and currently is afebrile. He is currently on a combination of IV Zosyn and vancomycin. The patient is also on DuoNeb neb last 2 minutes [id number]. We'll go ahead and add Solu-Medrol as the patient was found to be significantly bronchospastic and wheezy on today's evaluation. Objective - Vital Signs Vital signs: Vital Signs Temp 97.7 F 08/24/17 08:00 Pulse 96 08/24/17 12:07 Resp 18 08/24/17 12:00 BP 130/57 08/24/17 12:00 Pulse Ox 92 L 08/24/17 12:00 Intake & Output 08/23/17 08/24/17 08/24/17 18:59 06:59 18:59 Intake Total 2470 477 Output Total 800 Balance 1670 477 Weight 123 kg Intake: Intake, IV Titration 1750 Amount Piperacillin-Tazobactam 3 50 .375 gm In Dextrose/Water 1 50ml.bag @ 12.5 mls/hr IVPB Q8HR PA Rx#: [id number] Sodium Chloride 0.9% 1, 1200 000 ml @ 150 mls/hr IV . Q6H40M PA Rx#:[id number] Vancomycin 2,000 mg In 500 Sodium Chloride 0.9% 500 ml @ 167 mls/hr IVPB Q24H PA Rx#:[id number] Oral 720 477 Output: Urine 800 Other: Voiding Method Diaper Diaper Urinal Incontinent Incontinent # Voids 3 3 - Exam GENERAL EXAM: Alert, active, comfortable in no apparent distress. HEAD: Normocephalic. EYES: Normal reaction of pupils, equal size. NOSE: Clear with pink turbinates. THROAT: No erythema or exudates. NECK: No masses, no JVD. CHEST: No chest wall deformity. LUNGS: Equal air entry with crackles in the bilateral posterior bases. The patient is also bronchospastic and has prolonged expiratory phase of breathing and scattered expiratory wheezes throughout the lung irizarry bilaterally. CVS: S1 and S2 normal with no audible murmur, regular rhythm. ABDOMEN: No hepatosplenomegaly, normal bowel sounds, no guarding or rigidity. SPINE: No scoliosis or deformity SKIN: No rashes CENTRAL NERVOUS SYSTEM: No focal deficits, tone is normal in all 4 extremities. EXTREMITIES: There is no peripheral edema. No clubbing, no cyanosis. Peripheral pulses are intact. - Labs CBC & Chem 7: 08/23/17 05:53 08/24/17 05:45 Labs: Abnormal Lab Results - Last 24 Hours (Table) 08/23/17 08/23/17 08/23/17 Range/Units 05:53 16:06 20:41 Creatinine (0.66-1.25) mg/dL Glucose (74-99) mg/dL POC Glucose (mg/dL) 183 H 200 H (75-99) mg/dL Hemoglobin A1c 7.7 H (4.0-6.0) % 08/24/17 08/24/17 08/24/17 Range/Units 05:40 05:45 11:36 Creatinine 1.37 H (0.66-1.25) mg/dL Glucose 160 H (74-99) mg/dL POC Glucose (mg/dL) 166 H 171 H (75-99) mg/dL Hemoglobin A1c (4.0-6.0) % Microbiology - Last 24 Hours (Table) 08/22/17 12:30 Gram Stain - Preliminary Sputum 08/22/17 15:23 Urine Culture - Final Urine,Catheterized 08/22/17 14:45 Blood Culture Gram Stain - Preliminary Blood 08/22/17 14:45 Blood Culture - Final Blood Assessment and Plan Plan: Assessment 1 acute febrile episode with altered mentation, likely infection/septic in nature currently under investigation. Currently hemodynamically stable and the patient is afebrile without any significant leukocytosis. Obviously there is a concern of a left perihilar/lower lobe pneumonia based on the chest x-ray findings. The chest x-ray from 08/24/2017 shows no major improvement in the left perihilar infiltrate and there is a new right basilar/atelectasis/ pneumonia noted. The patient is afebrile the patient is currently on a combination of Zosyn and vancomycin. He is more bronchospastic and wheezy on today's evaluation. 2 recent evaluation for a left lung pneumonia as the patient is a masslike consolidation in the severe several of the left lower lobe in addition to nonspecific mediastinal lymphadenopathy. Malignancy cannot be completely excluded 3 seizure disorder currently on Trileptal 4 hypertension 5 hyperlipidemia 6 diabetes mellitus with peripheral neuropathy 7 chronic renal failure stage III kidney disease 8 coronary artery disease with previous coronary intervention and stenting 9 prostate cancer with previous radiation therapy/brachytherapy/radiation seeds 10 previous history of CVA 11 peripheral neuropathy 12 degenerative disc disease 13 obesity with a BMI of 36.7 Plan Continue the current antibiotic coverage. Add IV Solu Medrol 60 mg every 6 hours. Continue bronchodilators. Repeat chest x-ray in the morning. Cultures are all negative. We are going to consider repeating the CAT scan of the chest if no improvement in his condition with the next 24-48 hours.
[2017-08-24 16:59] LABS: Glucose,Whole Blood 211 mg/dL (75-99)
[2017-08-24] MEDS: methylPREDNISolone SOD SUCCI 125 MG/2 ML VIAL IV SCH ×2 (18:02→23:22)
[2017-08-24] MEDS: ACETAMINOPHEN TAB 325 MG TAB PO PRN (19:39)
[2017-08-24 20:30] LABS: Glucose,Whole Blood 196 mg/dL (75-99)
[2017-08-24] MEDS: DONEPEZIL 5 MG TAB PO SCH (20:37)
[2017-08-24] MEDS: ATORVASTATIN 80 MG TAB PO SCH (20:37)
[2017-08-24] MEDS: PRIMIDONE 50 MG TAB PO SCH (20:39)
--- NOTE | 2017-08-24 21:22 | P.PN ---
Subjective Progress Note Date: 08/24/17 Principal diagnosis: Left lung pneumonia 66-year-old male who presented to the emergency room via EMS for altered mental status and fever. The patient has a history of seizures and takes Trileptal. He was seen by his primary care physician, Dr. Gold, approximately one week ago and his dose of Trileptal was decreased to once a day at that time. Apparently the patient started having tremor-like movements of his entire body and had fevers at home of almost 103. Denies shortness of breath. Denies chest pain or pressure. Denies nausea or vomiting. Denies vision changes. 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 Patient is a former cigarette smoker. Chest x-ray: mediastinal and hilar adenopathy, there may be retrocardiac mass as noted on prior exam. Correlate for possible metastatic disease. The patient did undergo a CT of the chest in July 2017 during hospitalization which revealed mediastinal and bronchial adenopathy. There is low density masslike consolidation in the superior segment left lower lobe. Tumor is possible. the patient was followed by pulmonology during that hospitalization and recommended further workup outpatient including PET scan and possible bronchoscopy. It is unknown if the patient followed up with pulmonology for further workup at this point. On 08/24/2017 Patient still having congested cough and shortness of breath. No commerce of chest pain. Chest x-ray showed persistent left periHilar and infrahilar infiltrate and new right basilar infiltrate. Patient is being continued on antibiotics no cough vancomycin and Zosyn. Also on IV steroids and breathing treatments. Pulmonary is following. No nausea vomiting or abdominal pain. All other review of systems negative for the above Active Medications Acetaminophen (Tylenol Tab) 650 mg PO Q6HR PRN PRN Reason: Mild Pain or Fever > 100.5 Last Admin: 08/24/17 19:39 Dose: 650 mg Hydrocodone Bitart/Acetaminophen (Sekiu 7.5-325) 1 each PO TID PRN PRN Reason: Pain Albuterol/Ipratropium (Duoneb 0.5 Mg-3 Mg/3 Ml Soln) 3 ml INHALATION RT-Q4H PRN PRN Reason: Shortness Of Breath Last Admin: 08/24/17 20:17 Dose: 3 ml Aspirin (Aspirin) 81 mg PO DAILY [facility] Last Admin: 08/24/17 08:19 Dose: 81 mg Atorvastatin Calcium (Lipitor) 80 mg PO HS [facility] Last Admin: 08/24/17 20:37 Dose: 80 mg Cyclobenzaprine HCl (Flexeril) 10 mg PO HS PRN PRN Reason: Muscle Spasm Donepezil HCl (Aricept) 5 mg PO HS [facility] Last Admin: 08/24/17 20:37 Dose: 5 mg Ergocalciferol (Vitamin D2) 50,000 unit PO GUERRA [facility] Gabapentin (Neurontin) 800 mg PO BID [facility] Last Admin: 08/24/17 20:38 Dose: 800 mg Guaifenesin (Mucinex) 600 mg PO Q12HR PRN PRN Reason: Congestion Last Admin: 08/23/17 06:42 Dose: 600 mg Heparin Sodium (Porcine) (Heparin) 5,000 unit SQ Q8HR [facility] Last Admin: 08/24/17 16:08 Dose: 5,000 unit Sodium Chloride (Saline 0.9%) 1,000 mls @ 150 mls/hr IV .Q6H40M [facility] Last Admin: 08/24/17 20:57 Dose: Not Given Piperacillin/Tazobactam/ (Dextrose 3.375 gm/ IV Solution) 50 mls @ 12.5 mls/hr IVPB Q8HR [facility] Last Admin: 08/24/17 16:07 Dose: 12.5 mls/hr Vancomycin HCl 2,000 mg/ (Sodium Chloride) 500 mls @ 167 mls/hr IVPB Q24H [facility] Last Admin: 08/24/17 05:21 Dose: 167 mls/hr Insulin Aspart (Novolog) 0 unit SQ ACHS PA PRN Reason: Protocol Last Admin: 08/24/17 20:36 Dose: 3 unit Isosorbide Mononitrate (Imdur) 30 mg PO DAILY [facility] Last Admin: 08/24/17 08:19 Dose: 30 mg Lorazepam (Ativan) 0.5 mg IV Q3HR PRN PRN Reason: Anxiety Last Admin: 08/24/17 00:29 Dose: 0.5 mg Losartan Potassium (Cozaar) 50 mg PO DAILY [facility] Last Admin: 08/24/17 08:19 Dose: 50 mg Meclizine HCl (Antivert) 25 mg PO TID PRN PRN Reason: Vertigo Memantine (Namenda) 10 mg PO BID [facility] Last Admin: 08/24/17 20:38 Dose: 10 mg Methylprednisolone Sodium Succinate (Solu-Medrol) 60 mg IV Q6HR [facility] Last Admin: 08/24/17 18:02 Dose: 60 mg Metoprolol Tartrate (Lopressor) 25 mg PO DAILY [facility] Last Admin: 08/24/17 08:22 Dose: 25 mg Morphine Sulfate (Morphine Oral Madhavi 2mg/Ml) 12 mg PO Q4HR PRN PRN Reason: Severe Pain Naloxone HCl (Narcan) 0.2 mg IV Q2M PRN PRN Reason: Opioid Reversal Nitroglycerin (Nitrostat) 0.4 mg SUBLINGUAL Q5M PRN PRN Reason: Chest Pain [place]-3 Acid Ethyl (Esters [Lovaza]) 1 gm PO BID [facility] Last Admin: 08/24/17 20:38 Dose: Not Given Ondansetron HCl (Zofran) 4 mg IVP Q8HR PRN PRN Reason: Nausea And Vomiting Oxcarbazepine (Trileptal) 300 mg PO BID [facility] Last Admin: 08/24/17 20:38 Dose: 300 mg Pantoprazole Sodium (Protonix) 40 mg PO AC-[id number] [facility] Last Admin: 08/24/17 06:39 Dose: 40 mg Prasugrel (Effient) 10 mg PO DAILY [facility] Last Admin: 08/24/17 08:19 Dose: 10 mg Primidone (Mysoline) 150 mg PO [facility] Last Admin: 08/24/17 20:39 Dose: 150 mg Ropinirole HCl (Requip) 0.25 mg PO HS [facility] Last Admin: 08/24/17 20:39 Dose: 0.25 mg Ropinirole HCl (Requip) 0.5 mg PO QAM [facility] Last Admin: 08/24/17 08:22 Dose: 0.5 mg Objective - Vital Signs Vital signs: Vital Signs Temp 98 F 08/24/17 16:00 Pulse 88 08/24/17 20:33 Resp 18 08/24/17 16:00 BP 156/77 08/24/17 16:00 Pulse Ox 95 08/24/17 16:01 Intake & Output 08/24/17 08/24/17 08/25/17 06:59 18:59 07:59 Intake Total 2334 Output Total 850 Balance 1484 Weight 123 kg Intake: Intake, IV Titration 1317 Amount Piperacillin-Tazobactam 3 100 .375 gm In Dextrose/Water 1 50ml.bag @ 12.5 mls/hr IVPB Q8HR PA Rx#: [id number] Sodium Chloride 0.9% 1, 1050 000 ml @ 150 mls/hr IV . Q6H40M PA Rx#:[id number] Vancomycin 2,000 mg In 167 Sodium Chloride 0.9% 500 ml @ 167 mls/hr IVPB Q24H PA Rx#:[id number] Oral 1017 Output: Urine 850 Other: Voiding Method Diaper Urinal Incontinent # Voids 2 - Exam GENERAL: This is a 66-year-old male who appears lethargic but awake and alert and follows commands HEENT eyes reactive to light. Sclerae anicteric. Conjunctivae are clear. Mucus membranes of the mouth are moist. Neck is supple. RESPIRATORY: Diminished throughout. Prolonged expiratory phase and wheezing. Rhonchi present. No chest wall tenderness is noted on palpation or with deep breathing. CARDIOVASCULAR: Tachycardic. S1 and S2 noted. No systolic or diastolic murmur auscultated. No JVD noted. No S3 or S4 noted. GASTROINTESTINAL: Obese. No distention noted. Abdomen soft and round. Normal active bowel sounds auscultated x 4 quadrants. No pain or tenderness noted upon palpation. INTEGUMENTARY: No cyanosis. No jaundice. No rashes noted. No cellulitis noted. EXTREMITIES: 1+ peripheral pulses. 1-2+ bilateral lower extremity edema. No calf tenderness noted. NEUROLOGIC: Cranial nerves II-XII intact. residual right-sided weakness secondary to previous CVA. Spastic jerking movements noted to right upper extremity. PSYCHIATRIC: Could not be assessed completely - Labs CBC & Chem 7: 08/23/17 05:53 08/24/17 05:45 Labs: Abnormal Lab Results - Last 24 Hours (Table) 08/23/17 08/24/17 08/24/17 Range/Units 20:41 05:40 05:45 Creatinine 1.37 H (0.66-1.25) mg/dL Glucose 160 H (74-99) mg/dL POC Glucose (mg/dL) 200 H 166 H (75-99) mg/dL 08/24/17 08/24/17 08/24/17 Range/Units 11:36 16:56 20:22 Creatinine (0.66-1.25) mg/dL Glucose (74-99) mg/dL POC Glucose (mg/dL) 171 H 211 H 196 H (75-99) mg/dL Microbiology - Last 24 Hours (Table) 08/23/17 15:36 Blood Culture - Preliminary Blood No Growth after 24 hours 08/22/17 12:30 Gram Stain - Preliminary Sputum 08/22/17 15:23 Urine Culture - Final Urine,Catheterized 08/22/17 14:45 Blood Culture Gram Stain - Preliminary Blood Assessment and Plan Assessment: Acute febrile illness with possible sepsis likely due to left perihilar infiltrate/pneumonia Acute bronchospasm Sepsis, present on admission, exact source unknown, cultures pending at this time Spastic movements/twitching involving mostly the right upper extremity, rule out seizure activity, may be secondary to sepsis Mediastinal and hilar adenopathy with possible retrocardiac mass, Rule out metastatic disease Diabetes mellitus, type II, utilizing insulin pump at home. HB A1c 7.7 History of CVA in 2016 with residual right-sided weakness Coronary artery disease with previous stent placement 4 Essential hypertension Hyperlipidemia Chronic kidney disease, stage III History of prostate cancer History of nicotine dependence, in remission Obesity: BMI 36.7 PLAN: Patient will be continued on antibiotics in the form of Zosyn and vancomycin. Continue with breathing treatments and IV Solu-Medrol has been added. Continue with Trileptal. Neurology and pulmonary is following. EEG report is pending. We will decrease IV fluids to 75 mL per hour. Continue with the current management. GI and DVT prophylaxis. Follow-up culture reports. Further recommendations based on the clinical course Time with Patient: Greater than 30
[2017-08-25] MEDS: VANCOMYCIN 2,000 MG in SODIUM CHLORIDE 0.9% 500 ML IVPB SCH (05:14)
[2017-08-25 05:57] LABS: Glucose,Whole Blood 266 mg/dL (75-99)
[2017-08-25] MEDS: INSULIN ASPART 100 UNIT/ML 1 ML 10 ML VIAL SQ SCH ×4 (06:19→21:24)
[2017-08-25] MEDS: methylPREDNISolone SOD SUCCI 125 MG/2 ML VIAL IV SCH ×4 (06:20→23:02)
[2017-08-25] MEDS: PANTOPRAZOLE 40 MG TABLET PO SCH (06:22)
[2017-08-25 06:59] LABS: Calcium 9.5 mg/dL (8.4-10.2); Potassium 4.8 mmol/L (3.5-5.1)
--- NOTE | 2017-08-25 07:38 | XR ---
EXAMINATION TYPE: XR chest 1V DATE OF EXAM: 08/25/2017 CLINICAL HISTORY: Difficulty breathing and pneumonia progress study. TECHNIQUE: Single AP portable frontal view of the chest is obtained. COMPARISON: Chest x-ray from one day earlier and older studies FINDINGS: There is persistent left hilar opacity. There is persistent right medial basilar opacity. Abnormal thoracic adenopathy noted on recent CT bilateral hilar and subcarinal regions. No large pleu ral effusion or pneumothorax is present. Somewhat low lung volumes redemonstrated. Cardiac silhouette size is stable and within normal limits. Overlying EKG wires are present. Osseous structures are int act. IMPRESSION: Persistent left perihilar infiltrate. Persistent right medial basilar infiltrate and/or a telectasis. Background abnormal thoracic adenopathy noted. No new infiltrate is present. No significa nt change from one day earlier.
[2017-08-25] MEDS: IPRATROPIUM-ALBUTEROL 3 ML NEB INHALATION PRN ×4 (07:59→19:47)
[2017-08-25] MEDS: HEPARIN SODIUM,PORCINE 5,000 UNIT/ML 1 ML VIAL SQ SCH ×3 (07:59→23:02)
[2017-08-25] MEDS: PIPERACILLIN-TAZOBACTAM 3.375 GM in DEXTROSE/WATER 1 50ML.BAG IVPB SCH ×3 (07:59→23:02)
[2017-08-25] MEDS: GABAPENTIN 400 MG CAP PO SCH ×2 (08:01→21:24)
[2017-08-25] MEDS: ASPIRIN 81 MG PO SCH (08:01)
[2017-08-25] MEDS: ISOSORBIDE MONONITRATE ER 30 MG TAB.ER.24H PO SCH (08:01)
[2017-08-25] MEDS: MEMANTINE 5 MG TAB PO SCH ×2 (08:01→21:25)
[2017-08-25] MEDS: METOPROLOL TARTRATE 25 MG TAB PO SCH (08:02)
[2017-08-25] MEDS: PRASUGREL 10 MG TAB PO SCH (08:02)
[2017-08-25] MEDS: OXcarbazepine 300 MG TAB PO SCH ×2 (08:03→21:25)
[2017-08-25] MEDS: LOSARTAN 50 MG TAB PO SCH (08:03)
[2017-08-25] MEDS: OMEGA ACID ETHYL ESTERS PO SCH ×2 (08:04→21:26)
[2017-08-25] MEDS ORDERED: ERGOCALCIFEROL 50,000 UNIT CAP PO SCH (09:00)
[2017-08-25] MEDS: SODIUM CHLORIDE 0.9% 1,000 ML IV SCH ×2 (12:21→23:02)
[2017-08-25 12:27] LABS: Glucose,Whole Blood 326 mg/dL (75-99)
--- NOTE | 2017-08-25 15:07 | P.PN ---
Subjective Progress Note Date: 08/25/17 On 08/24/2017 the patient is being seen for a follow-up. He has a congested cough. He is also short of breath even at rest. He is bronchospastic and wheezy. The patient had a rough night throughout the night with respiratory distress. His mentation is appropriate however is very shaky and weak and he has lost and coordination. For example is having difficulties holding his nebulizer To continue the breathing treatments. He is also having difficulties in grabbing pediatric assistant send feeding himself. He has increased tremors yet there are no seizure activity noted. I repeated the chest x-ray and there is persistent left perihilar infiltrate along with a new right medial basilar infiltrate/ atelectasis. There is also left hilar prominence. The patient was febrile throughout the night yesterday and currently is afebrile. He is currently on a combination of IV Zosyn and vancomycin. The patient is also on DuoNeb neb last 2 minutes [id number]. We'll go ahead and add Solu-Medrol as the patient was found to be significantly bronchospastic and wheezy on today's evaluation. On 08/25/2017, the patient is much improved compared to yesterday. He looks much more alert and awake and communicating. His tremors have subsided. His strength is improved. He has congested cough with limited amount of sputum production. No hemoptysis no pleurisy. No chest pain. No fever or chills. The blood culture was positive for group D non-enterococcus strep which is sensitive to penicillins. I do have this patient on a combination of Zosyn and vancomycin. The patient is also on DuoNeb the right treatment around-the- clock. The patient on IV Solu-Medrol. The patient has persistent left perihilar infiltrate on today's chest x-ray. There is also persistent right middle basilar infiltrate that needs to be followed up very closely. The patient's white cell count is not elevated. The patient has no leukocytosis. The patient is doing well. All of the electrodes are within normal limits. Creatinine stable at 1.3. Lactic acid level was down to 1.4. Objective - Vital Signs Vital signs: Vital Signs Temp 97.6 F 08/25/17 12:00 Pulse 82 08/25/17 12:00 Resp 18 03/11/18 12:00 BP 133/79 08/25/17 12:00 Pulse Ox 90 L 08/25/17 12:00 Intake & Output 08/24/17 08/25/17 08/25/17 17:59 06:59 18:59 Intake Total 230 Output Total 300 Balance -70 Weight Intake: Intake, IV Titration Amount Piperacillin-Tazobactam 3 .375 gm In Dextrose/Water 1 50ml.bag @ 12.5 mls/hr IVPB Q8HR PA Rx#: [id number] Sodium Chloride 0.9% 1, 000 ml @ 75 mls/hr IV . [id number] PA Rx#:[id number] Vancomycin 2,000 mg In Sodium Chloride 0.9% 500 ml @ 167 mls/hr IVPB Q24H PA Rx#:[id number] Oral 230 Output: Urine 300 Other: Voiding Method Urinal Incontinent # Voids - Exam GENERAL EXAM: Alert, active, comfortable in no apparent distress. HEAD: Normocephalic. EYES: Normal reaction of pupils, equal size. NOSE: Clear with pink turbinates. THROAT: No erythema or exudates. NECK: No masses, no JVD. CHEST: No chest wall deformity. LUNGS: Equal air entry with crackles in the bilateral posterior bases. The patient is also bronchospastic and has prolonged expiratory phase of breathing and scattered expiratory wheezes throughout the lung irizarry bilaterally. CVS: S1 and S2 normal with no audible murmur, regular rhythm. ABDOMEN: No hepatosplenomegaly, normal bowel sounds, no guarding or rigidity. SPINE: No scoliosis or deformity SKIN: No rashes CENTRAL NERVOUS SYSTEM: No focal deficits, tone is normal in all 4 extremities. EXTREMITIES: There is no peripheral edema. No clubbing, no cyanosis. Peripheral pulses are intact. - Labs CBC & Chem 7: 08/23/17 05:53 08/25/17 05:48 Labs: Abnormal Lab Results - Last 24 Hours (Table) 08/24/17 08/24/17 08/25/17 Range/Units 16:56 20:22 05:48 Creatinine 1.30 H (0.66-1.25) mg/dL Glucose 294 H (74-99) mg/dL POC Glucose (mg/dL) 211 H 196 H (75-99) mg/dL 08/25/17 08/25/17 Range/Units 05:50 12:09 Creatinine (0.66-1.25) mg/dL Glucose (74-99) mg/dL POC Glucose (mg/dL) 266 H 326 H (75-99) mg/dL Microbiology - Last 24 Hours (Table) 08/22/17 12:30 Gram Stain - Final Sputum Sputum Culture - Final 08/22/17 14:45 Blood Culture Gram Stain - Final Blood Blood Culture - Final Group D Not Enterococcus 08/23/17 15:36 Blood Culture - Preliminary Blood No Growth after 24 hours Assessment and Plan Plan: Assessment 1 acute sepsis with streptococcal group D, not enterococcal microorganism. Source most probably a pneumonia as the patient has perihilar infiltrate on the left on bibasilar pulmonary infiltration. Fever subsided. Lactic acid normalized. Mental status also improved and the patient is much more alert and awake on today's evaluation. Note that group D streptococcal infection is most commonly associated with endocarditis and other considerations would include urine checked infection, and less likely possibilities would include meningitis and peritonitis and arthritis. Another possibility would be bowel infection with strep bovis association with colon cancer and gastrointestinal malignancies. The lungs are not a common source of this type of an infection. My recommendation is to do an echocardiogram to rule out endocarditis and subsequently patient may need a colonoscopy if this has not been done recently. 2 recent evaluation for a left lung pneumonia as the patient is a masslike consolidation in the severe several of the left lower lobe in addition to nonspecific mediastinal lymphadenopathy. Malignancy cannot be completely excluded 3 seizure disorder currently on Trileptal 4 hypertension 5 hyperlipidemia 6 diabetes mellitus with peripheral neuropathy 7 chronic renal failure stage III kidney disease 8 coronary artery disease with previous coronary intervention and stenting 9 prostate cancer with previous radiation therapy/brachytherapy/radiation seeds 10 previous history of CVA 11 peripheral neuropathy 12 degenerative disc disease 13 obesity with a BMI of 36.7 Plan Continue the current antibiotic coverage. Continue Zosyn and vancomycin. Continue IV Solu-Medrol and taper the patient to prednisone as of tomorrow. Subsequent follow-up with repeated chest x-rays. We'll ultimately need a follow -up CAT scan to further characterize the left perihilar and left lower lobe masslike consolidation. I'm very happy with the patient's progress. As part of further workup for group D non-enterococcal infection, the patient will need in echocardiogram to rule out endocarditis and subsequently a colonoscopy to rule out any gastrointestinal malignancy. Clinically much improved. We'll continue to follow.
[2017-08-25 17:13] LABS: Glucose,Whole Blood 346 mg/dL (75-99)
[2017-08-25 20:53] LABS: Glucose,Whole Blood 343 mg/dL (75-99)
[2017-08-25] MEDS: ATORVASTATIN 80 MG TAB PO SCH (21:24)
[2017-08-25] MEDS: DONEPEZIL 5 MG TAB PO SCH (21:24)
[2017-08-25] MEDS: PRIMIDONE 50 MG TAB PO SCH (21:25)
[2017-08-25] MEDS: guaiFENesin 600 MG TABLET.ER PO PRN (22:06)
[2017-08-25 23:40] LABS: Glucose,Whole Blood 339 mg/dL (75-99)
[2017-08-25] MEDS: LORazepam 2 MG/ML INJ IV PRN (23:48)
--- NOTE | 2017-08-26 00:14 | P.PN ---
Subjective Progress Note Date: 08/25/17 Principal diagnosis: Left lung pneumonia 66-year-old male who presented to the emergency room via EMS for altered mental status and fever. The patient has a history of seizures and takes Trileptal. He was seen by his primary care physician, Dr. Gold, approximately one week ago and his dose of Trileptal was decreased to once a day at that time. Apparently the patient started having tremor-like movements of his entire body and had fevers at home of almost 103. Denies shortness of breath. Denies chest pain or pressure. Denies nausea or vomiting. Denies vision changes. 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 Patient is a former cigarette smoker. Chest x-ray: mediastinal and hilar adenopathy, there may be retrocardiac mass as noted on prior exam. Correlate for possible metastatic disease. The patient did undergo a CT of the chest in July 2017 during hospitalization which revealed mediastinal and bronchial adenopathy. There is low density masslike consolidation in the superior segment left lower lobe. Tumor is possible. the patient was followed by pulmonology during that hospitalization and recommended further workup outpatient including PET scan and possible bronchoscopy. It is unknown if the patient followed up with pulmonology for further workup at this point. On 08/24/2017 Patient still having congested cough and shortness of breath. No commerce of chest pain. Chest x-ray showed persistent left periHilar and infrahilar infiltrate and new right basilar infiltrate. Patient is being continued on antibiotics no cough vancomycin and Zosyn. Also on IV steroids and breathing treatments. Pulmonary is following. No nausea vomiting or abdominal pain. 08/25/2017 Patient is more awake and alert today and is able to communicate. Conduced to have wet cough. No complaints of chest pain. No fever no chills. Ex line blood cultures positive for group D non-enterococcus strep Patient is being continued on Zosyn and vancomycin. Creatinine 1.3 Chest x-ray today showed persistent left hilar infiltrate. Persistent right, basilar, medial infiltrate and atelectasis No other acute overnight issues. Active Medications Acetaminophen (Tylenol Tab) 650 mg PO Q6HR PRN PRN Reason: Mild Pain or Fever > 100.5 Last Admin: 08/24/17 19:39 Dose: 650 mg Hydrocodone Bitart/Acetaminophen ([place] 7.5-325) 1 each PO TID PRN PRN Reason: Pain Albuterol/Ipratropium (Duoneb 0.5 Mg-3 Mg/3 Ml Soln) 3 ml INHALATION RT-Q4H PRN PRN Reason: Shortness Of Breath Last Admin: 08/25/17 19:47 Dose: 3 ml Aspirin (Aspirin) 81 mg PO DAILY [facility] Last Admin: 08/25/17 08:01 Dose: 81 mg Atorvastatin Calcium (Lipitor) 80 mg PO HS [facility] Last Admin: 08/25/17 21:24 Dose: 80 mg Cyclobenzaprine HCl (Flexeril) 10 mg PO HS PRN PRN Reason: Muscle Spasm Donepezil HCl (Aricept) 5 mg PO HS [facility] Last Admin: 08/25/17 21:24 Dose: 5 mg Ergocalciferol (Vitamin D2) 50,000 unit PO GUERRA [facility] Last Admin: 08/25/17 08:03 Dose: 50,000 unit Gabapentin (Neurontin) 800 mg PO BID [facility] Last Admin: 08/25/17 21:24 Dose: 800 mg Guaifenesin (Mucinex) 600 mg PO Q12HR PRN PRN Reason: Congestion Last Admin: 08/25/17 22:06 Dose: 600 mg Heparin Sodium (Porcine) (Heparin) 5,000 unit SQ Q8HR [facility] Last Admin: 08/25/17 23:02 Dose: 5,000 unit Sodium Chloride (Saline 0.9%) 1,000 mls @ 75 mls/hr IV .[id number] [facility] Last Admin: 08/25/17 23:02 Dose: 75 mls/hr Piperacillin/Tazobactam/ (Dextrose 3.375 gm/ IV Solution) 50 mls @ 12.5 mls/hr IVPB Q8HR [facility] Last Admin: 08/25/17 23:02 Dose: 12.5 mls/hr Insulin Aspart (Novolog) 0 unit SQ ACHS PA PRN Reason: Protocol Last Admin: 08/25/17 21:24 Dose: 8 unit Isosorbide Mononitrate (Imdur) 30 mg PO DAILY [facility] Last Admin: 08/25/17 08:01 Dose: 30 mg Lorazepam (Ativan) 0.5 mg IV Q3HR PRN PRN Reason: Anxiety Last Admin: 08/25/17 23:48 Dose: 0.5 mg Losartan Potassium (Cozaar) 50 mg PO DAILY [facility] Last Admin: 08/25/17 08:03 Dose: 50 mg Meclizine HCl (Antivert) 25 mg PO TID PRN PRN Reason: Vertigo Memantine (Namenda) 10 mg PO BID [facility] Last Admin: 08/25/17 21:25 Dose: 10 mg Methylprednisolone Sodium Succinate (Solu-Medrol) 60 mg IV Q6HR [facility] Last Admin: 08/25/17 23:02 Dose: 60 mg Metoprolol Tartrate (Lopressor) 25 mg PO DAILY [facility] Last Admin: 08/25/17 08:02 Dose: 25 mg Morphine Sulfate (Morphine Oral Madhavi 2mg/Ml) 12 mg PO Q4HR PRN PRN Reason: Severe Pain Naloxone HCl (Narcan) 0.2 mg IV Q2M PRN PRN Reason: Opioid Reversal Nitroglycerin (Nitrostat) 0.4 mg SUBLINGUAL Q5M PRN PRN Reason: Chest Pain [place]-3 Acid Ethyl (Esters [Lovaza]) 1 gm PO BID [facility] Last Admin: 08/25/17 21:26 Dose: Not Given Ondansetron HCl (Zofran) 4 mg IVP Q8HR PRN PRN Reason: Nausea And Vomiting Oxcarbazepine (Trileptal) 300 mg PO BID [facility] Last Admin: 08/25/17 21:25 Dose: 300 mg Pantoprazole Sodium (Protonix) 40 mg PO AC-BRKFST [facility] Last Admin: 08/25/17 06:22 Dose: 40 mg Prasugrel (Effient) 10 mg PO DAILY [facility] Last Admin: 08/25/17 08:02 Dose: 10 mg Primidone (Mysoline) 150 mg PO HS [facility] Last Admin: 08/25/17 21:25 Dose: 150 mg Ropinirole HCl (Requip) 0.25 mg PO HS [facility] Last Admin: 08/25/17 21:25 Dose: 0.25 mg Ropinirole HCl (Requip) 0.5 mg PO QAM [facility] Last Admin: 08/25/17 08:02 Dose: 0.5 mg All other review of systems negative for the above Objective - Vital Signs Vital signs: Vital Signs Temp 97.6 F 08/25/17 16:00 Pulse 80 08/25/17 20:02 Resp 18 08/25/17 16:00 BP 132/66 08/25/17 16:00 Pulse Ox 90 L 08/25/17 16:00 Intake & Output 08/25/17 08/25/17 08/26/17 06:59 18:59 06:59 Intake Total 460 Output Total 300 Balance 160 Weight Intake: Intake, IV Titration Amount Piperacillin-Tazobactam 3 .375 gm In Dextrose/Water 1 50ml.bag @ 12.5 mls/hr IVPB Q8HR PA Rx#: [id number] Oral 460 Output: Urine 300 Other: Voiding Method Urinal Incontinent # Voids 3 - Exam GENERAL: This is a 66-year-old male who appears lethargic but awake and alert and follows commands HEENT eyes reactive to light. Sclerae anicteric. Conjunctivae are clear. Mucus membranes of the mouth are moist. Neck is supple. RESPIRATORY: Diminished throughout. Prolonged expiratory phase and wheezing. Rhonchi present. No chest wall tenderness is noted on palpation or with deep breathing. CARDIOVASCULAR: Tachycardic. S1 and S2 noted. No systolic or diastolic murmur auscultated. No JVD noted. No S3 or S4 noted. GASTROINTESTINAL: Obese. No distention noted. Abdomen soft and round. Normal active bowel sounds auscultated x 4 quadrants. No pain or tenderness noted upon palpation. INTEGUMENTARY: No cyanosis. No jaundice. No rashes noted. No cellulitis noted. EXTREMITIES: 1+ peripheral pulses. 1-2+ bilateral lower extremity edema. No calf tenderness noted. NEUROLOGIC: Cranial nerves II-XII intact. residual right-sided weakness secondary to previous CVA. Spastic jerking movements noted to right upper extremity. PSYCHIATRIC: Could not be assessed completely - Labs CBC & Chem 7: 08/23/17 05:53 08/25/17 05:48 Labs: Abnormal Lab Results - Last 24 Hours (Table) 08/25/17 08/25/17 08/25/17 Range/Units 05:48 05:50 12:09 Creatinine 1.30 H (0.66-1.25) mg/dL Glucose 294 H (74-99) mg/dL POC Glucose (mg/dL) 266 H 326 H (75-99) mg/dL 08/25/17 08/25/17 Range/Units 17:08 20:33 Creatinine (0.66-1.25) mg/dL Glucose (74-99) mg/dL POC Glucose (mg/dL) 346 H 343 H (75-99) mg/dL Microbiology - Last 24 Hours (Table) 08/23/17 15:36 Blood Culture - Preliminary Blood No Growth after 48 hours 08/22/17 12:30 Gram Stain - Final Sputum Sputum Culture - Final 08/22/17 14:45 Blood Culture Gram Stain - Final Blood Blood Culture - Final Group D Not Enterococcus Assessment and Plan Assessment: Acute febrile illness with possible sepsis likely due to left perihilar infiltrate/pneumonia Acute bronchospasm Group D enterococcus septicemia Sepsis, present on admission Spastic movements/twitching involving mostly the right upper extremity, rule out seizure activity, may be secondary to sepsis Mediastinal and hilar adenopathy with possible retrocardiac mass, Rule out metastatic disease Diabetes mellitus, type II, utilizing insulin pump at home. HB A1c 7.7 History of CVA in 2016 with residual right-sided weakness Coronary artery disease with previous stent placement 4 Essential hypertension Hyperlipidemia Chronic kidney disease, stage III History of prostate cancer History of nicotine dependence, in remission Obesity: BMI 36.7 PLAN: Patient will be continued on antibiotics in the form of Zosyn and vancomycin. Continue with breathing treatments and IV Solu-Medrol has been added. Continue with Trileptal. Neurology and pulmonary is following. EEG report is pending. CT chest to further evaluate left perihilar infiltrates. And also workup for group D enterococcus bacteremia including 2-D echo and colonoscopy for any GI malignancy. Continue with the current management. GI and DVT prophylaxis. Follow-up culture reports. Further recommendations based on the clinical course Prognosis is guarded with multiple medical problems and comorbid conditions. Time with Patient: Greater than 30
--- NOTE | 2017-08-26 05:14 | PN ---
PROGRESS NOTE DATE OF SERVICE: 08/25/2017. REASON FOR FOLLOWUP: 1. Pneumonia. 2. Positive blood culture. INTERVAL HISTORY: The patient is afebrile. He seems to be breathing more comfortably. He continues to have a cough but not bringing up any sputum. No chest pain. No nausea, no vomiting and no abdominal pain and no diarrhea. EXAMINATION: Blood pressure 132/66 with a pulse of 75, temperature of 97.6. He is 90% on 2 L nasal cannula. General description is an elderly male lying in bed in no distress. Respiratory system unlabored breathing, decreased breath sounds in the bases with no wheeze. Heart S1, S2. Regular rate and rhythm. ABDOMEN: Soft, no tenderness. LABS: BUN of 17, creatinine is 1.30. Blood culture with group D Enterococcus, which is pathogen sensitive. Blood culture repeat has been negative so far. DIAGNOSTIC IMPRESSION AND PLAN: Patient admitted to the hospital with sepsis, mostly respiratory symptoms and likely a component of pneumonia with sputum showing the usual respiratory tomeka. Blood culture with group D Enterococcus and the patient currently with no gastrointestinal symptoms. His urine is negative. We will go ahead and obtain a CT abdominal pelvis with oral contrast tomorrow to make sure no evidence of any GI source. Keep the patient on Zosyn has a to discontinue the vancomycin. MMODL / IJN: [id number] /
[2017-08-26] MEDS: PANTOPRAZOLE 40 MG TABLET PO SCH (06:18)
[2017-08-26] MEDS: methylPREDNISolone SOD SUCCI 125 MG/2 ML VIAL IV SCH ×4 (06:19→23:06)
[2017-08-26] MEDS: IPRATROPIUM-ALBUTEROL 3 ML NEB INHALATION PRN ×5 (06:22→23:56)
[2017-08-26 06:47] LABS: Calcium 9.3 mg/dL (8.4-10.2); Potassium 4.7 mmol/L (3.5-5.1)
[2017-08-26 06:51] LABS: Glucose,Whole Blood 390 mg/dL (75-99)
[2017-08-26] MEDS ORDERED: INSULIN REGULAR BOLUS (FROM DRIP BAG) IV ONE (07:00)
[2017-08-26] MEDS: INSULIN ASPART 100 UNIT/ML 1 ML 10 ML VIAL SQ SCH (07:03)
[2017-08-26] MEDS ORDERED: INSULIN ASPART 100 UNIT/ML 1 ML 10 ML VIAL SQ SCH (07:30)
[2017-08-26] MEDS: INSULIN REGULAR 100 UNIT in SODIUM CHLORIDE 0.9% 100 ML IV SCH (07:57)
[2017-08-26] MEDS: GABAPENTIN 400 MG CAP PO SCH ×2 (08:11→21:17)
[2017-08-26] MEDS: HEPARIN SODIUM,PORCINE 5,000 UNIT/ML 1 ML VIAL SQ SCH ×3 (08:11→23:06)
[2017-08-26] MEDS: ASPIRIN 81 MG PO SCH (08:11)
[2017-08-26] MEDS: LOSARTAN 50 MG TAB PO SCH (08:12)
[2017-08-26] MEDS: ISOSORBIDE MONONITRATE ER 30 MG TAB.ER.24H PO SCH (08:12)
[2017-08-26] MEDS: MEMANTINE 5 MG TAB PO SCH ×2 (08:12→21:17)
[2017-08-26] MEDS: OXcarbazepine 300 MG TAB PO SCH ×2 (08:13→21:17)
[2017-08-26] MEDS: METOPROLOL TARTRATE 25 MG TAB PO SCH (08:13)
[2017-08-26] MEDS: PRASUGREL 10 MG TAB PO SCH (08:13)
[2017-08-26] MEDS: OMEGA ACID ETHYL ESTERS PO SCH ×2 (08:16→21:17)
[2017-08-26 09:06] LABS: Glucose,Whole Blood 305 mg/dL (75-99)
[2017-08-26] MEDS ORDERED: RX INFO: IV CONTRAST WAS GIVEN 1 EACH MISC MISCELLANE PRN (09:33)
--- NOTE | 2017-08-26 09:39 | P.PN ---
Subjective Progress Note Date: 08/26/17 66-year-old male who presented to the emergency room via EMS for altered mental status and fever. The patient has a history of seizures and takes Trileptal. He was seen by his primary care physician, Dr. Gold, approximately one week ago and his dose of Trileptal was decreased to once a day at that time. Apparently the patient started having tremor-like movements of his entire body and had fevers at home of almost 103. Denies shortness of breath. Denies chest pain or pressure. Denies nausea or vomiting. Denies vision changes. 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 Patient is a former cigarette smoker. Chest x-ray: mediastinal and hilar adenopathy, there may be retrocardiac mass as noted on prior exam. Correlate for possible metastatic disease. The patient did undergo a CT of the chest in July 2017 during hospitalization which revealed mediastinal and bronchial adenopathy. There is low density masslike consolidation in the superior segment left lower lobe. Tumor is possible. the patient was followed by pulmonology during that hospitalization and recommended further workup outpatient including PET scan and possible bronchoscopy. It is unknown if the patient followed up with pulmonology for further workup at this point. CT of the brain: negative for an acute process. EKG: sinus tachycardia. Rate 132. Laboratory data: WBC 8.9. Hemoglobin 15.6. Platelet count 219. sodium 143. Potassium 4.8. BUN 16. Current and 1.20. Glucose 107. Troponin negative 1. lactic acid 2.3 testing for influenza A and B was negative Urinalysis: unremarkable The patient was admitted to the hospital under the care of Dr. Gold. Consultations were placed to neurology, pulmonary, and infectious disease. 08/24/2017-Notes per covering provider Patient still having congested cough and shortness of breath. No commerce of chest pain. Chest x-ray showed persistent left periHilar and infrahilar infiltrate and new right basilar infiltrate. Patient is being continued on antibiotics no cough vancomycin and Zosyn. Also on IV steroids and breathing treatments. Pulmonary is following. No nausea vomiting or abdominal pain. 08/25/2017-Notes per covering provider Patient is more awake and alert today and is able to communicate. Conduced to have wet cough. No complaints of chest pain. No fever no chills. Ex line blood cultures positive for group D non-enterococcus strep Patient is being continued on Zosyn and vancomycin. Creatinine 1.3 Chest x-ray today showed persistent left hilar infiltrate. Persistent right, basilar, medial infiltrate and atelectasis No other acute overnight issues. 08/26/2017 Patient seen and examined at the bedside on rounds with Dr. Gold. Patient appears very short of breath this morning. Patient states he was just walking to the bathroom. He does state he gets very short of breath with minimal activity. Infectious disease remains on consult. Blood cultures positive for group D not enterococcus. Repeat cultures are negative thus far. Sputum culture reveals normal respiratory tomeka. Patient was started on IV steroids per pulmonary. His blood sugars have been elevated in the high 300s. Patient to start on an insulin drip this morning. Objective - Vital Signs Vital signs: Vital Signs Temp 98.6 F 08/26/17 04:00 Pulse 103 H 08/26/17 06:30 Resp 18 08/26/17 04:00 BP 148/93 08/26/17 04:00 Pulse Ox 90 L 08/26/17 04:00 Intake & Output 08/25/17 08/26/17 08/26/17 18:59 06:59 18:59 Intake Total 460 600 202.843 Output Total 300 400 100 Balance 160 200 102.843 Weight 112.6 kg Intake: IV 600 0.9+ 600 Intake, IV Titration 22.843 Amount Insulin Regular 100 unit 22.843 In Sodium Chloride 0.9% 100 ml @ Titrate IV .Q0M [facility] Rx#:[id number] Oral 460 180 Output: Urine 300 400 100 Other: Voiding Method Urinal Urinal Incontinent Incontinent # Voids 3 # Bowel Movements 1 - Exam GENERAL: This is a 66-year-old male who appears short of breath at the time of examination. HEENT: Head is atraumatic, normocephalic. Pupils are equal, round, and reactive to light. Sclerae anicteric. Conjunctivae are clear. Mucus membranes of the mouth are moist. Neck is supple. RESPIRATORY: Diminished throughout with mild expiratory wheezing and scattered rhonchi. Rales present to bilateral bases. congested cough present. No sputum production.Patient maintaining oxygen saturation greater than 92% on 2 L nasal cannula. No chest wall tenderness is noted on palpation or with deep breathing. CARDIOVASCULAR: Tachycardic. S1 and S2 noted. No systolic or diastolic murmur auscultated. No JVD noted. No S3 or S4 noted. GASTROINTESTINAL: Obese. No distention noted. Abdomen soft and round. Normal active bowel sounds auscultated x 4 quadrants. No pain or tenderness noted upon palpation. INTEGUMENTARY: No cyanosis. No jaundice. No rashes noted. No cellulitis noted. EXTREMITIES: 1+ peripheral pulses. 1+ bilateral lower extremity edema. No calf tenderness noted. NEUROLOGIC: Cranial nerves II-XII intact. residual right-sided weakness secondary to previous CVA. PSYCHIATRIC: Oriented X 2-3. Appropriate affect. - Labs CBC & Chem 7: 08/23/17 05:53 08/26/17 05:28 Labs: Abnormal Lab Results - Last 24 Hours (Table) 08/25/17 08/25/17 08/25/17 Range/Units 12:09 17:08 20:33 BUN (9-20) mg/dL Creatinine (0.66-1.25) mg/dL Glucose (74-99) mg/dL POC Glucose (mg/dL) 326 H 346 H 343 H (75-99) mg/dL 08/25/17 08/26/17 08/26/17 Range/Units 23:37 05:28 06:14 BUN 24 H (9-20) mg/dL Creatinine 1.35 H (0.66-1.25) mg/dL Glucose 352 H (74-99) mg/dL POC Glucose (mg/dL) 339 H 390 H (75-99) mg/dL 08/26/17 Range/Units 08:37 BUN (9-20) mg/dL Creatinine (0.66-1.25) mg/dL Glucose (74-99) mg/dL POC Glucose (mg/dL) 305 H (75-99) mg/dL Microbiology - Last 24 Hours (Table) 08/23/17 15:36 Blood Culture - Preliminary Blood No Growth after 48 hours 08/22/17 12:30 Gram Stain - Final Sputum Sputum Culture - Final Assessment and Plan Plan: ASSESSMENT: Sepsis, present on admission, with streptococcal group D, not enterococcal microorganism Pneumonia, CXR reveals left perihilar infiltrate and right medial basilar infiltrate and/or alectasis, sputum negative Spastic movements/twitching involving mostly the right upper extremity, EEG negative for seizure activity, may be secondary to sepsis Mediastinal and hilar adenopathy with possible retrocardiac mass, Rule out metastatic disease Diabetes mellitus, type II, utilizing insulin pump at home History of 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 Appreciate recommendations and input Pulmonology on consult. Appreciate recommendations and input Patient to follow with pulmonary regarding possible loeft lower masslike consolidation continue IV steroids. Taper per pulmonary echocardiogram ordered. Await results Infectious disease on consult. Appreciate recommendations and input obtain CT of the abdomen and pelvis with oral contrast per infectious disease recommendations begin insulin drip for hyperglycemia Home meds as appropriate Monitor labs GI prophylaxis: Protonix 40 mg PO Daily DVT prophylaxis: Heparin 5000 units subcu every 8 hours Monitor vital signs and address as appropriate Discharge planning: anticipate ECF versus inpatient rehab at the time of discharge. Will consult Dr. Coyne to evaluate for possible inpatient rehab Further recommendations pending patient's course Nurse practitioner note has been reviewed by physician. Signing provider agrees with the documented findings, assessment, and plan of care.
[2017-08-26 09:52] LABS: Glucose,Whole Blood 326 mg/dL (75-99)
[2017-08-26] MEDS: SODIUM CHLORIDE 0.9% 1,000 ML IV SCH ×4 (09:59→21:25)
[2017-08-26 10:04] LABS: Glucose,Whole Blood 275 mg/dL (75-99)
[2017-08-26] MEDS: PIPERACILLIN-TAZOBACTAM 3.375 GM in DEXTROSE/WATER 1 50ML.BAG IVPB SCH (10:28)
[2017-08-26 10:49] LABS: Glucose,Whole Blood 240 mg/dL (75-99)
--- NOTE | 2017-08-26 11:17 | P.CONS ---
History of Present Illness - Chief Complaint Medical debility - History of Present Illness I had there to see patient for inpatient rehab consultation with regard to medical debility. He was admitted to [facility] August 22 with mental status change fever and sepsis. Seen by Dr. Francisco Almeida for known seizure. Seen by Dr. Reyes for left-sided pneumonia. Head CT negative. chest x-ray with persistent left perihilar and right medial basilar infiltrate. PT and OT prescribed. Previous functional history as elicited from patient and : 66 left-handed white male who is lives in one floor home with . Retired. does cooking, laundry, driving. Patient dependent with standing shower, gait with roller walker. Note that he has not driven for 2 weeks due to recent seizure. History smoking in the remote past but doesn't smoke or drink. Dr. Gold his PMD. Family medical history of cancer in father. Review of Systems Review of systems: ENT: Denies sneezes or discharge. Eyes: Denies discharge or photophobia. Cardiac: Denies chest pain or palpitation. Pulmonary: Mild shortness of breath. Gastrointestinal: Denies nausea, emesis, constipation, diarrhea. Genitourinary: Denies discharge or frequency. Musculoskeletal: Denies muscle or bone aches. Neurologic: Unsteadiness with standing, underlying weakness. Endocrine: Denies shakes or sweats. Oncology: Denies cancers. Dermatologic: Denies rash, itching, pruritus. ALLERGY/immunology: Denies sneezes, rashes. Past Medical History Past Medical History: Coronary Artery Disease (CAD), Cancer, Chest Pain / Angina , CVA/TIA, Diabetes Mellitus, Hyperlipidemia, Hypertension, Myocardial Infarction (VA), Osteoarthritis (OA), Pneumonia, Renal Disease, Skin Disorder Additional Past Medical History / Comment(s): Diabetes mellitus currently on insulin pump, seizure disorder, peripheral neuropathy, prostate cancer treated by radiation therapy, CVA back in April 2016 with right-sided weakness and facial droop, chronic back pain, L3 L4 L5 and S1 lumbosacral disease/fractures, nephrolithiasis, chronic renal failure, hypertension, hyperlipidemia, coronary artery disease Last Myocardial Infarction Date:: 2014 History of Any Multi-Drug Resistant Organisms: None Reported Past Surgical History: Heart Catheterization With Stent Additional Past Surgical History / Comment(s): COLONOCOSPY, LUMBAR EPIDURAL INJ , total 4 cardiac stents (2011 1 stent and 2014 3 stents),juventino cataracts/lens implants, colonoscopy, gold seed implants for prostate cancer. Past Anesthesia/Blood Transfusion Reactions: Motion Sickness Additional Past Anesthesia/Blood Transfusion Reaction / Comm: CLAUSTERPHOBIC Date of Last Stent Placement:: 2014 Past Psychological History: No Psychological Hx Reported Additional Psychological History / Comment(s): PT LIVES AT HOME WITH HIS KWAN IS INDEPENDANT WITH HIS OWN CARE. USED TO WORK FOR [employer] no home care services, has insulin pump/glucometer Smoking Status: Former smoker Past Alcohol Use History: None Reported Additional Past Alcohol Use History / Comment(s): STARTED SMOKING AROUND AGE 48( 1998) SMOKE A PIPE OR CIGARS 2-3 times a week but quit 04/2016. Past Drug Use History: None Reported - Past Family History Father Family Medical History: Cancer Additional Family Medical History / Comment(s): FATHER HAD BLADDER CANCER AND OF THIS IN HIS 40'S Mother Family Medical History: Cancer, Dementia Additional Family Medical History / Comment(s): UTERINE CANCER. Mother of dementia at the age of 89yrs. Medications and Allergies Home Medications Medication Instructions Recorded Confirmed Type Aspirin 81 mg PO DAILY 01/12/15 08/22/17 History [place]-3 Acid Ethyl Esters [Lovaza] 1 gm PO BID 01/12/15 08/22/17 History Isosorbide Mononitrate ER [Imdur] 30 mg PO DAILY #30 tab.er.24h 01/17/15 Rx Losartan [Cozaar] 50 mg PO DAILY #30 tab 01/17/15 08/22/17 Rx Metoprolol Tartrate [Lopressor] 25 mg PO DAILY #30 tab 01/17/15 08/22/17 Rx Nitroglycerin Sl Tabs [Nitrostat] 0.4 mg SUBLINGUAL Q5M PRN #25 tab 01/17/1502/01 Rx Prasugrel [Effient] 10 mg PO DAILY #30 tab 01/17/15 08/22/17 Rx Gabapentin 800 mg PO BID 04/18/16 08/22/17 History HYDROcodone/APAP 7.5-325MG [[place] 1 tab PO TID PRN 03/14/17 08/22/17 History 7.5-325] Primidone [Mysoline] 150 mg PO HS 03/14/17 08/22/17 History Atorvastatin Calcium [Lipitor] 80 mg PO HS 07/30/17 08/22/17 History Cyclobenzaprine [Flexeril] 10 mg PO HS PRN 07/30/17 08/22/17 History Donepezil [Aricept] 5 mg PO HS 07/30/17 08/22/17 History Ergocalciferol [Vitamin D2 50,000 unit PO GUERRA 07/30/17 08/22/17 History (DRISDOL)] INSULIN LISPRO (For Pump) [humaLOG See Protocol SQ-PUMP CONTINUOUS 07/30/1702/01 History (For Pump)] Meclizine [Antivert] 25 mg PO TID PRN 07/30/17 08/22/17 History Memantine HCl [Namenda] 10 mg PO BID 07/30/17 08/22/17 History rOPINIRole HCL [Requip] 0.25 mg PO HS 07/30/17 08/22/17 History rOPINIRole HCL [Requip] 0.5 mg PO QAM 07/30/17 08/22/17 History OXcarbazepine [Trileptal] 300 mg PO BID #60 tab 08/10/17 08/22/17 Rx Allergies Allergy/AdvReac Type Severity Reaction Status Date / Time No Known Allergies Allergy Verified 08/22/17 15:25 Physical Exam Vitals: Vital Signs Temp Pulse Pulse Resp BP Pulse Ox 08/26/17 08:00 96.7 F L 89 18 149/83 90 L 08/26/17 06:30 103 H 08/26/17 06:22 99 08/26/17 04:00 98.6 F 99 18 148/93 90 L 08/26/17 00:00 98.0 F 91 18 141/89 90 L 08/25/17 20:02 80 08/25/17 20:00 98.0 F 99 18 147/79 90 L 08/25/17 19:47 78 08/25/17 16:01 86 08/25/17 16:00 97.6 F 75 18 132/66 90 L 08/25/17 15:46 84 08/25/17 12:00 97.6 F 82 18 133/79 90 L 08/25/17 11:44 88 08/25/17 11:33 86 Intake and Output 08/25/17 08/26/17 08/26/17 22:59 06:59 14:59 Intake Total 230 600 231.409 Output Total 400 100 Balance 230 200 131.409 Intake: IV 600 0.9+ 600 Intake, IV Titration 51.409 Amount Insulin Regular 100 unit 51.409 In Sodium Chloride 0.9% 100 ml @ Titrate IV .Q0M [facility] Rx#:[id number] Oral 230 180 Output: Urine 400 100 Other: Voiding Method Urinal Urinal Incontinent Incontinent # Voids 3 # Bowel Movements 1 Weight 112.6 kg Skin: Good color, texture, turgor. General: Overweight build and comfortable appearance. Head: Normocephalic, atraumatic. Eyes: Symmetric. Pupils equal round. Ears: Symmetric. Hearing within normal limits. Mouth: Clear. Neck: Supple. Carotid without bruit. Cardiac: Regular rate and rhythm. Lungs: Clear anteriorly and posteriorly. Abdomen: Soft active nontender. Overweight. Extremities: Normal tone. Overweight. Neurological: Mental status: Alert, cooperative, pleasant. Cranial nerves: Symmetric facial tone and trapezius. Motor: Active movement all 4 limbs. Sensation: Intact throughout. DTRs: Symmetric and equal throughout. Mobility: Sits and stands with standby to 5% minimal assistance. Results CBC & Chem 7: 08/23/17 05:53 08/26/17 05:28 Labs: Abnormal Lab Results - Last 24 Hours (Table) 08/25/17 08/25/17 08/25/17 Range/Units 12:09 17:08 20:33 BUN (9-20) mg/dL Creatinine (0.66-1.25) mg/dL Glucose (74-99) mg/dL POC Glucose (mg/dL) 326 H 346 H 343 H (75-99) mg/dL 08/25/17 08/26/17 08/26/17 Range/Units 23:37 05:28 06:14 BUN 24 H (9-20) mg/dL Creatinine 1.35 H (0.66-1.25) mg/dL Glucose 352 H (74-99) mg/dL POC Glucose (mg/dL) 339 H 390 H (75-99) mg/dL 08/26/17 08/26/17 08/26/17 Range/Units 08:37 09:30 10:01 BUN (9-20) mg/dL Creatinine (0.66-1.25) mg/dL Glucose (74-99) mg/dL POC Glucose (mg/dL) 305 H 326 H 275 H (75-99) mg/dL 08/26/17 Range/Units 10:33 BUN (9-20) mg/dL Creatinine (0.66-1.25) mg/dL Glucose (74-99) mg/dL POC Glucose (mg/dL) 240 H (75-99) mg/dL Microbiology - Last 24 Hours (Table) 08/23/17 15:36 Blood Culture - Preliminary Blood No Growth after 48 hours 08/22/17 12:30 Gram Stain - Final Sputum Sputum Culture - Final Chest x-ray: report reviewed (Persistent left perihilar and right medial basilar infiltrate.) CT Scan - head: report reviewed (Negative.) Assessment and Plan (1) Sepsis Current Visit: Yes Status: Acute Code(s): A41.9 - SEPSIS, UNSPECIFIED ORGANISM SNOMED Code(s): 16688704 Plan: Impression: 1. Medical debility. 2. Pneumonia with sepsis. 3. Recent seizure disorder. 4. Coronary disease with history of angina and VA. 5. History of stroke. 6. Diabetes. 7. Hypertension. 8. Dyslipidemia. 9. History of cancer. Constant plan: At this time PT and OT ordered. We'll follow therapies with yourself. Hopefully current problem quite quickly and patient would have quick functional return. We will follow closely with yourself.
[2017-08-26] MEDS: IOHEXOL 350 MG/ML 25 ML BOTTLE (ORAL USE) PO PRN ×2 (11:26→12:33)
[2017-08-26 12:09] LABS: Glucose,Whole Blood 172 mg/dL (75-99)
--- NOTE | 2017-08-26 12:37 | ECHOF ---
Referral Reason:possible endocarditis MEASUREMENTS -------- HEIGHT: 182.9 cm WEIGHT: 112.5 kg BP: 148/93 IVSd: 1.3 cm (0.6 - 1.1) LVIDd: 4.2 cm (3.9 - 5.3) LVPWd: 1.5 cm (0.6 - 1.1) IVSs: 1.7 cm LVIDs: 1.8 cm LVPWs: 1.9 cm Ao Diam: 3.3 cm (2.0 - 3.7) AV Cusp: 1.7 cm (1.5 - 2.6) LA Diam: 4.0 cm (2.7 - 3.8) MV EXCURSION: 15.618 mm (> 18.000) MV EF SLOPE: 70 mm/s (70 - 150) EPSS: 0.4 cm MV E Morgan: 0.97 m/s MV DecT: 286 ms MV A Morgan: 0.89 m/s MV E/A Ratio: 1.09 RAP: 5.00 mmHg RVSP: 11.42 mmHg FINDINGS -------- Sinus rhythm. This was a technically difficult study with suboptimal views. The left ventricular size is normal. There is moderate concentric left ventricular hypertrophy. O verall left ventricular systolic function is normal with, an EF between 55 - 60 %. The right ventricle is normal in size and function. The left atrium is normal in size. The right atrium is normal in size. Aortic valve is trileaflet and is mildly thickened. The mitral valve leaflets are mildly thickened. Mild mitral regurgitation is present. Mild tricuspid regurgitation present. The right ventricular systolic pressure, as measured by Doppl er, is 11.42mmHg. Pulmonic valve appears structurally normal. The aortic root size is normal. Normal inferior vena cava with normal inspiratory collapse consistent with estimated right atrial pre ssure of 5 mmHg. The pericardium is normal. CONCLUSIONS -------- 1. Sinus rhythm. 2. This was a technically difficult study with suboptimal views. 3. The left ventricular size is normal. 4. There is moderate concentric left ventricular hypertrophy. 5. Overall left ventricular systolic function is normal with, an EF between 55 - 60 %. 6. The right ventricle is normal in size and function. 7. The left atrium is normal in size. 8. The right atrium is normal in size. 9. Lumason used 10. Aortic valve is trileaflet and is mildly thickened. 11. The mitral valve leaflets are mildly thickened. 12. Mild mitral regurgitation is present. 13. Mild tricuspid regurgitation present. 14. The right ventricular systolic pressure, as measured by Doppler, is 11.42mmHg. 15. Pulmonic valve appears structurally normal. 16. The aortic root size is normal. 17. Normal inferior vena cava with normal inspiratory collapse consistent with estimated right atrial pressure of 5 mmHg. 18. The pericardium is normal. SCIENTIFIC DIVER: Sybil Dove RDCS
--- NOTE | 2017-08-26 14:10 | CT ---
EXAMINATION TYPE: CT abdomen pelvis wo con DATE OF EXAM: 08/26/2017 COMPARISON: Chest 08/01/2017 HISTORY: 66-year-old male Streptococcal group D infection, rule out GI origin. CT DLP: 1214.9 mGycm. Automated exposure control for dose reduction was used. TECHNIQUE: Contiguous axial scanning of the abdomen and pelvis without IV contrast. Coronal and sagit noy reconstructions performed. FINDINGS: Heart normal size without pericardial effusion. Coronary vessel calcifications are present in remarka ble for coronary artery disease. New trace to small pleural effusions and new patchy consolidation in the visualized lower lobes. Noncontrast appearance of the liver, adrenal glands, and atrophic pancreas show no gross abnormality. Hilar splenules are present. There is mild splenomegaly at 15.3 cm craniocaudal, axial image 68. Mild bilateral perinephric fat stranding likely senescent change. Multiple small calculi are present in the nondistended gallbladder. Mild atherosclerotic calcifications within the abdominal aorta. Soft tissue stranding in the subcutaneous fat of the anterior abdomen on either side suggesting subcu taneous injections. No dilated small bowel, free fluid, or free air. No mesenteric or retroperitoneal lymphadenopathy. Oral contrast progressed to the distal third small bowel. There is mild stool burden. No pericolonic inflammatory change. Circumferential bladder wall thickening. Brachytherapy seeds in the prostate gland which measures 4.5 cm wide. No abnormal fluid collection in the pelvis or pelvic lymphadenopathy seen. Bones: Bilateral L5 pars defects with grade 1, nearly grade 2 anterolisthesis at L5-S1. Severe disc/endplate degenerative change and facet arthropathy from L3 through S1 levels. No osseous destructive process. IMPRESSION: 1. New trace to small pleural effusions with patchy infiltrates in the visualized lower lobes suspic ious for pneumonia. 2. No abnormal bowel wall thickening or obstructive changes. 3. Splenomegaly (15.3 cm). Clinically correlate. 4. Circumferential bladder wall thickening could represent cystitis, chronic bladder wall hypertroph y, or posttreatment change. Brachytherapy seeds are present in the prostate. 5. Cholelithiasis. 6. L5 pars defects with grade 1, nearly grade 2 anterolisthesis at L5-S1 along with advanced degener ative changes lower lumbar spine.
--- NOTE | 2017-08-26 14:26 | P.PN ---
Subjective Progress Note Date: 08/26/17 Principal diagnosis: Acute sepsis with Streptococcus group D On 08/24/2017 the patient is being seen for a follow-up. He has a congested cough. He is also short of breath even at rest. He is bronchospastic and wheezy. The patient had a rough night throughout the night with respiratory distress. His mentation is appropriate however is very shaky and weak and he has lost and coordination. For example is having difficulties holding his nebulizer To continue the breathing treatments. 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 He has increased tremors yet there are no seizure activity noted. I repeated the chest x-ray and there is persistent left perihilar infiltrate along with a new right medial basilar infiltrate/ atelectasis. There is also left hilar prominence. The patient was febrile throughout the night yesterday and currently is afebrile. He is currently on a combination of IV Zosyn and vancomycin. The patient is also on DuoNeb neb last 2 minutes [id number]. We'll go ahead and add Solu-Medrol as the patient was found to be significantly bronchospastic and wheezy on today's evaluation. On 08/25/2017, the patient is much improved compared to yesterday. He looks much more alert and awake and communicating. His tremors have subsided. His strength is improved. He has congested cough with limited amount of sputum production. No hemoptysis no pleurisy. No chest pain. No fever or chills. The blood culture was positive for group D non-enterococcus strep which is sensitive to penicillins. I do have this patient on a combination of Zosyn and vancomycin. The patient is also on DuoNeb the right treatment around-the- clock. The patient on IV Solu-Medrol. The patient has persistent left perihilar infiltrate on today's chest x-ray. There is also persistent right middle basilar infiltrate that needs to be followed up very closely. The patient's white cell count is not elevated. The patient has no leukocytosis. The patient is doing well. All of the electrodes are within normal limits. Creatinine stable at 1.3. Lactic acid level was down to 1.4. Patient was reevaluated today on 08/26/2017, feeling much better, breathing a lot easier, he is already ambulating, and he is being considered for rehab. Patient has been on a combination of Zosyn and vancomycin. Patient remains on bronchodilators, still being followed by infectious disease on consultation. Chest x-ray from yesterday showed left perihilar infiltrate and right medial basilar infiltrate and atelectasis. Objective - Vital Signs Vital signs: Vital Signs Temp 96.9 F L 08/26/17 12:00 Pulse 86 08/26/17 12:00 Resp 18 08/26/17 12:00 BP 143/71 08/26/17 12:00 Pulse Ox 91 L 08/26/17 12:00 Intake & Output 08/25/17 08/26/17 08/26/17 18:59 06:59 18:59 Intake Total 460 600 242.317 Output Total 300 400 100 Balance 160 200 142.317 Weight 112.6 kg Intake: IV 600 0.9+ 600 Intake, IV Titration 62.317 Amount Insulin Regular 100 unit 62.317 In Sodium Chloride 0.9% 100 ml @ Titrate IV .Q0M [facility], [facility]–1983 Rx#:[id number] Oral 460 180 Output: Urine 300 400 100 Other: Voiding Method Urinal Urinal Incontinent Incontinent # Voids 3 # Bowel Movements 1 - Exam GENERAL EXAM: Alert, active, comfortable in no apparent distress. HEAD: Normocephalic. EYES: Normal reaction of pupils, equal size. NOSE: Clear with pink turbinates. THROAT: No erythema or exudates. NECK: No masses, no JVD. CHEST: No chest wall deformity. LUNGS: Equal air entry with crackles in the bilateral posterior bases. The patient is also bronchospastic and has prolonged expiratory phase of breathing and scattered expiratory wheezes throughout the lung irizarry bilaterally. CVS: S1 and S2 normal with no audible murmur, regular rhythm. ABDOMEN: No hepatosplenomegaly, normal bowel sounds, no guarding or rigidity. SPINE: No scoliosis or deformity SKIN: No rashes CENTRAL NERVOUS SYSTEM: No focal deficits, tone is normal in all 4 extremities. EXTREMITIES: There is no peripheral edema. No clubbing, no cyanosis. Peripheral pulses are intact. - Labs CBC & Chem 7: 08/23/17 05:53 08/26/17 05:28 Labs: Abnormal Lab Results - Last 24 Hours (Table) 08/25/17 08/25/17 08/25/17 Range/Units 17:08 20:33 23:37 BUN (9-20) mg/dL Creatinine (0.66-1.25) mg/dL Glucose (74-99) mg/dL POC Glucose (mg/dL) 346 H 343 H 339 H (75-99) mg/dL 08/26/17 08/26/17 08/26/17 Range/Units 05:28 06:14 08:37 BUN 24 H (9-20) mg/dL Creatinine 1.35 H (0.66-1.25) mg/dL Glucose 352 H (74-99) mg/dL POC Glucose (mg/dL) 390 H 305 H (75-99) mg/dL 08/26/17 08/26/17 08/26/17 Range/Units 09:30 10:01 10:33 BUN (9-20) mg/dL Creatinine (0.66-1.25) mg/dL Glucose (74-99) mg/dL POC Glucose (mg/dL) 326 H 275 H 240 H (75-99) mg/dL 08/26/17 Range/Units 12:03 BUN (9-20) mg/dL Creatinine (0.66-1.25) mg/dL Glucose (74-99) mg/dL POC Glucose (mg/dL) 172 H (75-99) mg/dL Microbiology - Last 24 Hours (Table) 08/23/17 15:36 Blood Culture - Preliminary Blood No Growth after 48 hours 08/22/17 12:30 Gram Stain - Final Sputum Sputum Culture - Final Assessment and Plan Assessment: 1 acute sepsis with streptococcal group D, not enterococcal microorganism. Source most probably a pneumonia as the patient has perihilar infiltrate on the left on bibasilar pulmonary infiltration. Fever subsided. Lactic acid normalized. Mental status also improved and the patient is much more alert and awake on today's evaluation. Note that group D streptococcal infection is most commonly associated with endocarditis and other considerations would include urine checked infection, and less likely possibilities would include meningitis and peritonitis and arthritis. Another possibility would be bowel infection with strep bovis association with colon cancer and gastrointestinal malignancies. The lungs are not a common source of this type of an infection. My recommendation is to do an echocardiogram to rule out endocarditis and subsequently patient may need a colonoscopy if this has not been done recently. 2 recent evaluation for a left lung pneumonia as the patient is a masslike consolidation in the severe several of the left lower lobe in addition to nonspecific mediastinal lymphadenopathy. Malignancy cannot be completely excluded 3 seizure disorder currently on Trileptal 4 hypertension 5 hyperlipidemia 6 diabetes mellitus with peripheral neuropathy 7 chronic renal failure stage III kidney disease 8 coronary artery disease with previous coronary intervention and stenting 9 prostate cancer with previous radiation therapy/brachytherapy/radiation seeds 10 previous history of CVA 11 peripheral neuropathy 12 degenerative disc disease 13 obesity with a BMI of 36.7 Recommendation: Continue present antibiotics coverage, continue IV Solu-Medrol, switched to prednisone orally and taper, patient is progressing clinically well , agree with rehab referral. Echocardiogram is pending, continue to follow Time with Patient: Less than 30
[2017-08-26 14:50] LABS: Glucose,Whole Blood 174 mg/dL (75-99)
[2017-08-26] MEDS: AMOXIC-POT CLAV 875-125MG 1 EACH TAB PO SCH ×2 (15:08→21:17)
[2017-08-26 17:11] LABS: Glucose,Whole Blood 193 mg/dL (75-99)
[2017-08-26 19:54] LABS: Glucose,Whole Blood 294 mg/dL (75-99)
[2017-08-26 21:15] LABS: Glucose,Whole Blood 291 mg/dL (75-99)
[2017-08-26] MEDS: ATORVASTATIN 80 MG TAB PO SCH (21:17)
[2017-08-26] MEDS: PRIMIDONE 50 MG TAB PO SCH (21:17)
[2017-08-26] MEDS: DONEPEZIL 5 MG TAB PO SCH (21:17)
--- NOTE | 2017-08-26 22:16 | P.PN ---
Subjective Progress Note Date: 08/26/17 This patient is a 66-year-old male who was admitted to Hospital with symptoms of altered mental status and fever. He has a history of underlying seizure disorder for which he has been taking Trileptal. He was having increasing symptoms of tremor and questionable seizure activity yesterday on examination. We have recommended a EEG test to be completed today for further evaluation. His Trileptal level is still pending from the laboratory. He was 6. In seeing severe tremulousness with a high-grade fever at home 103F. He denied any episode of loss of consciousness with these episodes of tremulousness. He underwent a computed tomography scan of the chest in July 2017 which revealed mediastinal adenopathy. He is being evaluated for this by pulmonary medicine and was recommended to have a PET scan done. He did undergo a computed tomography scan of the brain yesterday on admission which was normal with no acute process identified. At this time we would recommend for him to complete his EEG which will be reviewed. He is afebrile today and will continue on current antibiotics. Patient is doing much better today in terms of his alertness and able to follow simple commands. Patient was seen by infectious disease and is being treated for suspicion of pneumonia. Sputum culture revealed gram-positive bacteremia. Patient has been placed on vancomycin with close monitoring of his kidney function. Zosyn is to be continued at this time as well. Overall the patient is showing improvement in his mental status. He has had no further tremors suggesting his initial presentation was a febrile illness producing the tremulousness that was noted yesterday on initial evaluation. Patient underwent a routine EEG today which was reviewed and fails to reveal any evidence for epileptiform discharges. Patient is being evaluated for left lung pneumonia and masslike consolidation and mediastinal lymphadenopathy. Pulmonary medicine has seen the patient and malignancy cannot be completely excluded. Patient has had no witnessed seizure activity since admission to the hospital. His Trileptal level was completed on 08/23/2017 and it does come back therapeutic at 23.3. Patient is to continue on his current dose of Trileptal. As noted his EEG failed to reveal any focal epileptiform discharges. Patient was evaluated for possible inpatient rehab placement by Dr. Coyne. Patient apparently was slightly fatigued and tired this afternoon. He did not eat much of his lunch. is at bedside and states he has not had any further tremors or seizure-like activity. We will continue to monitor his progress closely during this admission. Objective - Vital Signs Vital signs: Vital Signs Temp 96.0 F L 08/26/17 15:47 Pulse 80 08/26/17 15:47 Resp 18 08/26/17 15:47 BP 135/77 08/26/17 15:47 Pulse Ox 95 08/26/17 15:47 Intake & Output 08/25/17 08/26/17 08/26/17 18:59 06:59 18:59 Intake Total 460 600 424.958 Output Total 300 400 100 Balance 160 200 324.958 Weight 112.6 kg Intake: IV 600 160 0.9+ 600 160 Intake, IV Titration 84.958 Amount Insulin Regular 100 unit 84.958 In Sodium Chloride 0.9% 100 ml @ Titrate IV .Q0M [facility] Rx#:[id number] Oral 460 180 Output: Urine 300 400 100 Other: Voiding Method Urinal Urinal Incontinent Incontinent # Voids 3 # Bowel Movements 1 - Exam Physical examination: PHYSICAL EXAMINATION: Patient is resting comfortably in bed. VITAL SIGNS: Blood pressure is [135/77]. Heart rate is [80]. Respiration is [18] . Temperature is [96.0]. HEENT: Head is atraumatic, neck is supple, there were no carotid bruits. CHEST: Lungs are clear to auscultation and percussion. CARDIAC: S1, S2 normal rate and rhythm. There is no murmur. ABDOMEN: Soft and nontender. Bowel sounds are present. EXTREMITIES: There is no pedal edema. Peripheral pulses are present. Neurological examination: Patient's neurological examination is unchanged from yesterday. Patient is more awake today. He is following simple commands. He has no evidence of any body tremors or tremulousness on examination today. His neurological examination is nonfocal. - Labs CBC & Chem 7: 08/23/17 05:53 08/26/17 05:28 Labs: Abnormal Lab Results - Last 24 Hours (Table) 08/25/17 08/25/17 08/26/17 Range/Units 20:33 23:37 05:28 BUN 24 H (9-20) mg/dL Creatinine 1.35 H (0.66-1.25) mg/dL Glucose 352 H (74-99) mg/dL POC Glucose (mg/dL) 343 H 339 H (75-99) mg/dL 08/26/17 08/26/17 08/26/17 Range/Units 06:14 08:37 09:30 BUN (9-20) mg/dL Creatinine (0.66-1.25) mg/dL Glucose (74-99) mg/dL POC Glucose (mg/dL) 390 H 305 H 326 H (75-99) mg/dL 08/26/17 08/26/17 08/26/17 Range/Units 10:01 10:33 12:03 BUN (9-20) mg/dL Creatinine (0.66-1.25) mg/dL Glucose (74-99) mg/dL POC Glucose (mg/dL) 275 H 240 H 172 H (75-99) mg/dL 08/26/17 08/26/17 Range/Units 14:47 16:50 BUN (9-20) mg/dL Creatinine (0.66-1.25) mg/dL Glucose (74-99) mg/dL POC Glucose (mg/dL) 174 H 193 H (75-99) mg/dL Microbiology - Last 24 Hours (Table) 08/23/17 15:36 Blood Culture - Preliminary Blood No Growth after 48 hours Assessment and Plan (1) Fever Current Visit: Yes Status: Acute Code(s): R50.9 - FEVER, UNSPECIFIED SNOMED Code(s): 318479576 (2) Sepsis Current Visit: Yes Status: Acute Code(s): A41.9 - SEPSIS, UNSPECIFIED ORGANISM SNOMED Code(s): 29358931 (3) Seizure Current Visit: No Status: Acute Code(s): R56.9 - UNSPECIFIED CONVULSIONS SNOMED Code(s): 67706085 (4) CAD (coronary artery disease) Current Visit: No Status: Chronic Code(s): I25.10 - ATHSCL HEART DISEASE OF [place] CORONARY ARTERY W/O ANG PCTRS SNOMED Code(s): 09466504 Plan: This patient is a 66-year-old male being evaluated for question of body tremors and history of seizure disorder. Patient is currently on Trileptal. His Trileptal level did come back therapeutic at 23.3. His EEG was moderately slow with no epileptiform discharges seen. Patient is being evaluated for inpatient rehab. He is being followed closely by infectious disease as he has positive blood cultures for group D non-enterococcus strep. We'll await further recommendations from infectious disease. His blood sugars also have been elevated and he may require insulin drip. Neurologically he remains intact. We reviewed the results of his EEG and Trileptal blood levels with the patient and his at bedside today. They're updated on all of his neurological findings. His overall prognosis at this time remains guarded.
[2017-08-26 23:15] LABS: Glucose,Whole Blood 275 mg/dL (75-99)
--- NOTE | 2017-08-26 23:15 | PN ---
PROGRESS NOTE DATE OF SERVICE: 08/26/2017 REASON FOR FOLLOWUP: 1. Pneumonia. 2. Bacteremia. INTERVAL HISTORY: The patient is afebrile. He seems to be breathing slightly comfortably. He did have some cough but not bringing up any sputum. No chest pain. No abdominal pain. No diarrhea. PHYSICAL EXAMINATION: Blood pressure is 135/77 with a pulse of 80, temperature of 96. He is 95% on 3 L nasal cannula. General description is an elderly male lying in bed in no distress. RESPIRATORY SYSTEM: Unlabored breathing with decreased intensity of breath sounds. Occasional wheeze. HEART: S1, S2. Regular rate and rhythm. No loud murmur. ABDOMEN: Soft. No tenderness. LABS: Hemoglobin 12.4, white count 10.6. No BUN or creatinine has been today. DIAGNOSTIC IMPRESSION AND PLAN: Patient admitted to hospital with features suspicious for pneumonia. So far sputum has been negative for any resistant pathogen. Blood culture with group D Not Enterococcus, ampicillin-sensitive negative. CT of abdomen and pelvis was done to rule out any intraabdominal pathology came back negative. In view of no IV access, antibiotic has been transitioned to oral Augmentin. That will be continued while she is continue supportive care. MMODL / IJN: [id number] /
[2017-08-27 01:13] LABS: Glucose,Whole Blood 226 mg/dL (75-99)
[2017-08-27 03:18] LABS: Glucose,Whole Blood 180 mg/dL (75-99)
[2017-08-27] MEDS: IPRATROPIUM-ALBUTEROL 3 ML NEB INHALATION PRN ×5 (03:59→21:25)
[2017-08-27] MEDS: INSULIN REGULAR 100 UNIT in SODIUM CHLORIDE 0.9% 100 ML IV SCH (04:58)
[2017-08-27 05:19] LABS: Glucose,Whole Blood 158 mg/dL (75-99)
[2017-08-27] MEDS: methylPREDNISolone SOD SUCCI 125 MG/2 ML VIAL IV SCH ×3 (06:13→16:57)
[2017-08-27 06:31] LABS: Basophils % (A) 0 %; Eosinophils % (A) 0 %; HCT 33.7 % (39.0-53.0); HGB 11.4 gm/dL (13.0-17.5); Lymphocytes # (A) 0.2 k/uL (1.0-4.8); Lymphocytes % (A) 3 %; MCHC 33.9 g/dL (31.0-37.0); MCV 82.5 fL (80.0-100.0); Monocytes # (A) 0.4 k/uL (0-1.0); Monocytes % (A) 4 %; Neutrophils # (A) 8.8 k/uL (1.3-7.7); Neutrophils % (A) 92 %; Platelet Count 237 k/uL (150-450); RBC 4.09 m/uL (4.30-5.90); RDW 14.5 % (11.5-15.5); WBC 9.5 k/uL (3.8-10.6)
[2017-08-27] MEDS: PANTOPRAZOLE 40 MG TABLET PO SCH (06:52)
[2017-08-27 06:57] LABS: Albumin 3.3 g/dL (3.5-5.0); Calcium 9.4 mg/dL (8.4-10.2); Potassium 4.5 mmol/L (3.5-5.1); Total Bilirubin 0.4 mg/dL (0.2-1.3); Total Protein 5.9 g/dL (6.3-8.2)
[2017-08-27 07:05] LABS: Glucose,Whole Blood 176 mg/dL (75-99)
[2017-08-27] MEDS: LOSARTAN 50 MG TAB PO SCH (08:28)
[2017-08-27] MEDS: AMOXIC-POT CLAV 875-125MG 1 EACH TAB PO SCH ×2 (08:29→21:05)
[2017-08-27] MEDS: PRASUGREL 10 MG TAB PO SCH (08:29)
[2017-08-27] MEDS: ISOSORBIDE MONONITRATE ER 30 MG TAB.ER.24H PO SCH (08:29)
[2017-08-27] MEDS: HEPARIN SODIUM,PORCINE 5,000 UNIT/ML 1 ML VIAL SQ SCH ×2 (08:29→16:56)
[2017-08-27] MEDS: ASPIRIN 81 MG PO SCH (08:29)
[2017-08-27] MEDS: MEMANTINE 5 MG TAB PO SCH ×2 (08:29→21:05)
[2017-08-27] MEDS: GABAPENTIN 400 MG CAP PO SCH ×2 (08:29→21:05)
[2017-08-27] MEDS: OXcarbazepine 300 MG TAB PO SCH ×2 (08:30→21:06)
[2017-08-27] MEDS: METOPROLOL TARTRATE 25 MG TAB PO SCH (08:30)
[2017-08-27] MEDS: OMEGA ACID ETHYL ESTERS PO SCH (08:30)
[2017-08-27] MEDS ORDERED: INSPUCOR MISCELLANE PRN (09:13)
[2017-08-27] MEDS ORDERED: INSULIN PUMP ACTIVE INSULIN 1 EACH MISC MISCELLANE PRN (09:13)
[2017-08-27] MEDS ORDERED: INSULIN ASPART 100 UNIT/ML 1 ML 10 ML VIAL SQ PRN (09:13)
[2017-08-27] MEDS ORDERED: INSULIN PUMP TARGET GLUCOSE 1 EACH MISC MISCELLANE PRN (09:13)
[2017-08-27] MEDS ORDERED: INSULIN PUMP BASAL RATES 1 EACH MISC MISCELLANE PRN (09:13)
--- NOTE | 2017-08-27 09:17 | P.PN ---
Subjective Progress Note Date: 08/27/17 66-year-old male who presented to the emergency room via EMS for altered mental status and fever. The patient has a history of seizures and takes Trileptal. He was seen by his primary care physician, Dr. Gold, approximately one week ago and his dose of Trileptal was decreased to once a day at that time. Apparently the patient started having tremor-like movements of his entire body and had fevers at home of almost 103. Denies shortness of breath. Denies chest pain or pressure. Denies nausea or vomiting. Denies vision changes. 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 Patient is a former cigarette smoker. Chest x-ray: mediastinal and hilar adenopathy, there may be retrocardiac mass as noted on prior exam. Correlate for possible metastatic disease. The patient did undergo a CT of the chest in July 2017 during hospitalization which revealed mediastinal and bronchial adenopathy. There is low density masslike consolidation in the superior segment left lower lobe. Tumor is possible. the patient was followed by pulmonology during that hospitalization and recommended further workup outpatient including PET scan and possible bronchoscopy. It is unknown if the patient followed up with pulmonology for further workup at this point. CT of the brain: negative for an acute process. EKG: sinus tachycardia. Rate 132. Laboratory data: WBC 8.9. Hemoglobin 15.6. Platelet count 219. sodium 143. Potassium 4.8. BUN 16. Current and 1.20. Glucose 107. Troponin negative 1. lactic acid 2.3 testing for influenza A and B was negative Urinalysis: unremarkable The patient was admitted to the hospital under the care of Dr. Gold. Consultations were placed to neurology, pulmonary, and infectious disease. 08/24/2017-Notes per covering provider Patient still having congested cough and shortness of breath. No commerce of chest pain. Chest x-ray showed persistent left periHilar and infrahilar infiltrate and new right basilar infiltrate. Patient is being continued on antibiotics no cough vancomycin and Zosyn. Also on IV steroids and breathing treatments. Pulmonary is following. No nausea vomiting or abdominal pain. 08/25/2017-Notes per covering provider Patient is more awake and alert today and is able to communicate. Conduced to have wet cough. No complaints of chest pain. No fever no chills. Ex line blood cultures positive for group D non-enterococcus strep Patient is being continued on Zosyn and vancomycin. Creatinine 1.3 Chest x-ray today showed persistent left hilar infiltrate. Persistent right, basilar, medial infiltrate and atelectasis No other acute overnight issues. 08/26/2017 Patient seen and examined at the bedside on rounds with Dr. Gold. Patient appears very short of breath this morning. Patient states he was just walking to the bathroom. He does state he gets very short of breath with minimal activity. Infectious disease remains on consult. Blood cultures positive for group D not enterococcus. Repeat cultures are negative thus far. Sputum culture reveals normal respiratory tomeka. Patient was started on IV steroids per pulmonary. His blood sugars have been elevated in the high 300s. Patient to start on an insulin drip this morning. 08/27/2017 Patient seen and examined at the bedside on rounds with Dr. Gold. Patient is awake and alert. Breathing seems less labored today. he remains on 3 L nasal cannula. Patient denies shortness of breath at rest. positive dyspnea upon exertion. No further spastic movements or tremor activity. Trileptal level was within therapeutic range. Patient was started on insulin drip yesterday secondary to hyperglycemia. blood sugars are currently running 158-226. repeat blood cultures are negative at the 72 hour sudha. Patient remains on Augmentin. patient underwent echocardiogram revealing ejection fraction between 55 and 60% , mild mitral regurgitation, mild tricuspid regurgitation, and mildly thickened aortic valve and mitral valve. patient underwent CT of the abdomen and pelvis with oral contrast which revealed new trace to small pleural effusions with patchy infiltrates in the lower lobe suspicious for pneumonia, no abnormal bowel wall thickening or obstructive changes, splenomegaly, circumferential bladder wall thickening could represent cystitis, chronic bladder wall hypertrophy, or posttreatment changes, brachytherapy seeds noted in the prostate , cholelithiasis, L5 pars defects with grade 1, nearly grade 2 anteriolisthesis at L5 to S1 along with advanced degenerative changes of the lower lumbar spine. Dr. Coyne was consulted yesterday for possible inpatient rehab, which is patients first choice. [facility] is patients second choice. Objective - Vital Signs Vital signs: Vital Signs Temp 97.0 F L 08/27/17 04:00 Pulse 92 08/27/17 07:47 Resp 20 08/27/17 04:00 BP 155/83 08/27/17 04:00 Pulse Ox 91 L 08/27/17 07:37 Intake & Output 08/26/17 08/27/17 08/27/17 18:59 06:59 18:59 Intake Total 424.958 184.223 240 Output Total 100 Balance 324.958 184.223 240 Weight 113.2 kg Intake: IV 160 160 0.9+ 160 160 Intake, IV Titration 84.958 24.223 Amount Insulin Regular 100 unit 84.958 24.223 In Sodium Chloride 0.9% 100 ml @ Titrate IV .Q0M [facility] Rx#:[id number] Oral 180 240 Output: Urine 100 Other: Voiding Method Toilet Urinal - Exam GENERAL: This is a 66-year-old male who in no acute distress at the time of examination.pleasant and cooperative HEENT: Head is atraumatic, normocephalic. Pupils are equal, round, and reactive to light. Sclerae anicteric. Conjunctivae are clear. Mucus membranes of the mouth are moist. Neck is supple. RESPIRATORY: Diminished throughout with mild expiratory wheezing. frequent coughing noted. No sputum production.Patient maintaining oxygen saturation greater than 92% on 3 L nasal cannula. No chest wall tenderness is noted on palpation or with deep breathing. CARDIOVASCULAR: S1 and S2 noted. No systolic or diastolic murmur auscultated. No JVD noted. No S3 or S4 noted. GASTROINTESTINAL: Obese. No distention noted. Abdomen soft and round. Normal active bowel sounds auscultated x 4 quadrants. No pain or tenderness noted upon palpation. INTEGUMENTARY: No cyanosis. No jaundice. No rashes noted. No cellulitis noted. EXTREMITIES: 1+ peripheral pulses. 1+ bilateral lower extremity edema. No calf tenderness noted. NEUROLOGIC: Cranial nerves II-XII intact. residual right-sided weakness secondary to previous CVA. PSYCHIATRIC: Oriented X 2-3. Appropriate affect. - Labs CBC & Chem 7: 08/27/17 06:03 08/27/17 06:03 Labs: Abnormal Lab Results - Last 24 Hours (Table) 08/26/17 08/26/17 08/26/17 Range/Units 08:37 09:30 10:01 RBC (4.30-5.90) m/uL Hgb (13.0-17.5) gm/dL Hct (39.0-53.0) % Neutrophils # (1.3-7.7) k/uL Lymphocytes # (1.0-4.8) k/uL BUN (9-20) mg/dL Glucose (74-99) mg/dL POC Glucose (mg/dL) 305 H 326 H 275 H (75-99) mg/dL Total Protein (6.3-8.2) g/dL Albumin (3.5-5.0) g/dL 08/26/17 08/26/17 08/26/17 Range/Units 10:33 12:03 14:47 RBC (4.30-5.90) m/uL Hgb (13.0-17.5) gm/dL Hct (39.0-53.0) % Neutrophils # (1.3-7.7) k/uL Lymphocytes # (1.0-4.8) k/uL BUN (9-20) mg/dL Glucose (74-99) mg/dL POC Glucose (mg/dL) 240 H 172 H 174 H (75-99) mg/dL Total Protein (6.3-8.2) g/dL Albumin (3.5-5.0) g/dL 08/26/17 08/26/17 08/26/17 Range/Units 16:50 19:19 21:14 RBC (4.30-5.90) m/uL Hgb (13.0-17.5) gm/dL Hct (39.0-53.0) % Neutrophils # (1.3-7.7) k/uL Lymphocytes # (1.0-4.8) k/uL BUN (9-20) mg/dL Glucose (74-99) mg/dL POC Glucose (mg/dL) 193 H 294 H 291 H (75-99) mg/dL Total Protein (6.3-8.2) g/dL Albumin (3.5-5.0) g/dL 08/26/17 08/27/17 08/27/17 Range/Units 23:04 01:01 03:05 RBC (4.30-5.90) m/uL Hgb (13.0-17.5) gm/dL Hct (39.0-53.0) % Neutrophils # (1.3-7.7) k/uL Lymphocytes # (1.0-4.8) k/uL BUN (9-20) mg/dL Glucose (74-99) mg/dL POC Glucose (mg/dL) 275 H 226 H 180 H (75-99) mg/dL Total Protein (6.3-8.2) g/dL Albumin (3.5-5.0) g/dL 08/27/17 08/27/17 08/27/17 Range/Units 05:06 06:03 06:03 RBC 4.09 L (4.30-5.90) m/uL Hgb 11.4 L (13.0-17.5) gm/dL Hct 33.7 L (39.0-53.0) % Neutrophils # 8.8 H (1.3-7.7) k/uL Lymphocytes # 0.2 L (1.0-4.8) k/uL BUN 30 H (9-20) mg/dL Glucose 181 H (74-99) mg/dL POC Glucose (mg/dL) 158 H (75-99) mg/dL Total Protein 5.9 L (6.3-8.2) g/dL Albumin 3.3 L (3.5-5.0) g/dL 08/27/17 Range/Units 06:53 RBC (4.30-5.90) m/uL Hgb (13.0-17.5) gm/dL Hct (39.0-53.0) % Neutrophils # (1.3-7.7) k/uL Lymphocytes # (1.0-4.8) k/uL BUN (9-20) mg/dL Glucose (74-99) mg/dL POC Glucose (mg/dL) 176 H (75-99) mg/dL Total Protein (6.3-8.2) g/dL Albumin (3.5-5.0) g/dL Microbiology - Last 24 Hours (Table) 08/26/17 19:08 Gram Stain - Preliminary Sputum Sputum Culture - Preliminary 08/23/17 15:36 Blood Culture - Preliminary Blood No Growth after 72 hours Assessment and Plan Plan: ASSESSMENT: Sepsis, present on admission, with streptococcal group D, not enterococcal microorganism Pneumonia, CXR reveals left perihilar infiltrate and right medial basilar infiltrate and/or alectasis, sputum negative Spastic movements/twitching involving mostly the right upper extremity, EEG negative for seizure activity, may be secondary to sepsis, resolved Mediastinal and hilar adenopathy with possible retrocardiac mass, Rule out metastatic disease Diabetes mellitus, type II, utilizing insulin pump at home History of 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 Appreciate recommendations and input Patient's Trileptal levels were within therapeutic range. continue current dose Pulmonology on consult. Appreciate recommendations and input Await recommendations from pulmonary regarding possible left lower masslike consolidation Continue IV steroids. Taper per pulmonary Infectious disease on consult. Appreciate recommendations and input Continue Augmentin Continue insulin drip. May transition to insulin pump if patients brings up from home today Home meds as appropriate Monitor labs GI prophylaxis: Protonix 40 mg PO Daily DVT prophylaxis: Heparin 5000 units subcu every 8 hours Monitor vital signs and address as appropriate Discharge planning: patient's first choice is like [facility] for inpatient rehab. Second choice is [facility] for subacute rehab Further recommendations pending patient's course Anticipate discharge within the next 48 hours to ECF or inpatient rehab Nurse practitioner note has been reviewed by physician. Signing provider agrees with the documented findings, assessment, and plan of care.
[2017-08-27 09:19] LABS: Glucose,Whole Blood 272 mg/dL (75-99)
[2017-08-27 11:47] LABS: Glucose,Whole Blood 256 mg/dL (75-99)
--- NOTE | 2017-08-27 11:49 | P.PN ---
Subjective Progress Note Date: 08/27/17 Principal diagnosis: Acute sepsis with Streptococcus group D On 08/24/2017 the patient is being seen for a follow-up. He has a congested cough. He is also short of breath even at rest. He is bronchospastic and wheezy. The patient had a rough night throughout the night with respiratory distress. His mentation is appropriate however is very shaky and weak and he has lost and coordination. For example is having difficulties holding his nebulizer To continue the breathing treatments. 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 He has increased tremors yet there are no seizure activity noted. I repeated the chest x-ray and there is persistent left perihilar infiltrate along with a new right medial basilar infiltrate/ atelectasis. There is also left hilar prominence. The patient was febrile throughout the night yesterday and currently is afebrile. He is currently on a combination of IV Zosyn and vancomycin. The patient is also on DuoNeb neb last 2 minutes [id number]. We'll go ahead and add Solu-Medrol as the patient was found to be significantly bronchospastic and wheezy on today's evaluation. On 08/25/2017, the patient is much improved compared to yesterday. He looks much more alert and awake and communicating. His tremors have subsided. His strength is improved. He has congested cough with limited amount of sputum production. No hemoptysis no pleurisy. No chest pain. No fever or chills. The blood culture was positive for group D non-enterococcus strep which is sensitive to penicillins. I do have this patient on a combination of Zosyn and vancomycin. The patient is also on DuoNeb the right treatment around-the- clock. The patient on IV Solu-Medrol. The patient has persistent left perihilar infiltrate on today's chest x-ray. There is also persistent right middle basilar infiltrate that needs to be followed up very closely. The patient's white cell count is not elevated. The patient has no leukocytosis. The patient is doing well. All of the electrodes are within normal limits. Creatinine stable at 1.3. Lactic acid level was down to 1.4. Patient was reevaluated today on 08/26/2017, feeling much better, breathing a lot easier, he is already ambulating, and he is being considered for rehab. Patient has been on a combination of Zosyn and vancomycin. Patient remains on bronchodilators, still being followed by infectious disease on consultation. Chest x-ray from yesterday showed left perihilar infiltrate and right medial basilar infiltrate and atelectasis. The patient is seen again today 08/27/2017 in follow-up in the selective care unit. He is awake and alert in no acute distress. He denies any worsening shortness of breath, cough or congestion. He is dyspneic on minimal exertion. He is afebrile. Maintaining O2 saturations in the 90s on 3 L/m per nasal cannula. White count 9.5. Hemoglobin 11.4. Creatinine 1.20. He remains on IV Solu-Medrol, bronchodilators and Augmentin. Objective - Vital Signs Vital signs: Vital Signs Temp 96.0 F L 08/27/17 08:00 Pulse 84 08/27/17 11:17 Resp 20 08/27/17 08:00 BP 146/44 08/27/17 08:00 Pulse Ox 90 L 08/27/17 08:00 Intake & Output 08/26/17 08/27/17 08/27/17 18:59 06:59 18:59 Intake Total 424.958 184.223 240 Output Total 100 Balance 324.958 184.223 240 Weight 113.2 kg Intake: IV 160 160 0.9+ 160 160 Intake, IV Titration 84.958 24.223 Amount Insulin Regular 100 unit 84.958 24.223 In Sodium Chloride 0.9% 100 ml @ Titrate IV .Q0M [facility] Rx#:[id number] Oral 180 240 Output: Urine 100 Other: Voiding Method Toilet Urinal # Voids 2 - Exam GENERAL EXAM: Obese. Alert, active, comfortable in no apparent distress. HEAD: Normocephalic. EYES: Normal reaction of pupils, equal size. NOSE: Clear with pink turbinates. THROAT: No erythema or exudates. NECK: No masses, no JVD. CHEST: No chest wall deformity. LUNGS: Equal air entry with crackles in the bilateral posterior bases. The patient has prolonged expiratory phase of breathing and scattered expiratory wheezes throughout the lung irizarry bilaterally. CVS: S1 and S2 normal with no audible murmur, regular rhythm. ABDOMEN: No hepatosplenomegaly, normal bowel sounds, no guarding or rigidity. SPINE: No scoliosis or deformity SKIN: No rashes CENTRAL NERVOUS SYSTEM: No focal deficits, tone is normal in all 4 extremities. EXTREMITIES: There is no peripheral edema. No clubbing, no cyanosis. Peripheral pulses are intact. - Labs CBC & Chem 7: 08/27/17 06:03 08/27/17 06:03 Labs: Abnormal Lab Results - Last 24 Hours (Table) 08/26/17 08/26/17 08/26/17 Range/Units 12:03 14:47 16:50 RBC (4.30-5.90) m/uL Hgb (13.0-17.5) gm/dL Hct (39.0-53.0) % Neutrophils # (1.3-7.7) k/uL Lymphocytes # (1.0-4.8) k/uL BUN (9-20) mg/dL Glucose (74-99) mg/dL POC Glucose (mg/dL) 172 H 174 H 193 H (75-99) mg/dL Total Protein (6.3-8.2) g/dL Albumin (3.5-5.0) g/dL 08/26/17 08/26/17 08/26/17 Range/Units 19:19 21:14 23:04 RBC (4.30-5.90) m/uL Hgb (13.0-17.5) gm/dL Hct (39.0-53.0) % Neutrophils # (1.3-7.7) k/uL Lymphocytes # (1.0-4.8) k/uL BUN (9-20) mg/dL Glucose (74-99) mg/dL POC Glucose (mg/dL) 294 H 291 H 275 H (75-99) mg/dL Total Protein (6.3-8.2) g/dL Albumin (3.5-5.0) g/dL 08/27/17 08/27/17 08/27/17 Range/Units 01:01 03:05 05:06 RBC (4.30-5.90) m/uL Hgb (13.0-17.5) gm/dL Hct (39.0-53.0) % Neutrophils # (1.3-7.7) k/uL Lymphocytes # (1.0-4.8) k/uL BUN (9-20) mg/dL Glucose (74-99) mg/dL POC Glucose (mg/dL) 226 H 180 H 158 H (75-99) mg/dL Total Protein (6.3-8.2) g/dL Albumin (3.5-5.0) g/dL 08/27/17 08/27/17 08/27/17 Range/Units 06:03 06:03 06:53 RBC 4.09 L (4.30-5.90) m/uL Hgb 11.4 L (13.0-17.5) gm/dL Hct 33.7 L (39.0-53.0) % Neutrophils # 8.8 H (1.3-7.7) k/uL Lymphocytes # 0.2 L (1.0-4.8) k/uL BUN 30 H (9-20) mg/dL Glucose 181 H (74-99) mg/dL POC Glucose (mg/dL) 176 H (75-99) mg/dL Total Protein 5.9 L (6.3-8.2) g/dL Albumin 3.3 L (3.5-5.0) g/dL 08/27/17 Range/Units 08:58 RBC (4.30-5.90) m/uL Hgb (13.0-17.5) gm/dL Hct (39.0-53.0) % Neutrophils # (1.3-7.7) k/uL Lymphocytes # (1.0-4.8) k/uL BUN (9-20) mg/dL Glucose (74-99) mg/dL POC Glucose (mg/dL) 272 H (75-99) mg/dL Total Protein (6.3-8.2) g/dL Albumin (3.5-5.0) g/dL Microbiology - Last 24 Hours (Table) 08/26/17 19:08 Gram Stain - Preliminary Sputum Sputum Culture - Preliminary 08/23/17 15:36 Blood Culture - Preliminary Blood No Growth after 72 hours Assessment and Plan Assessment: Impression: 1 acute sepsis with streptococcal group D, not enterococcal microorganism. Source most probably a pneumonia as the patient has perihilar infiltrate on the left on bibasilar pulmonary infiltration. Fever subsided. Lactic acid normalized. Mental status also improved and the patient is much more alert and awake on today's evaluation. Note that group D streptococcal infection is most commonly associated with endocarditis and other considerations would include urine checked infection, and less likely possibilities would include meningitis and peritonitis and arthritis. Another possibility would be bowel infection with strep bovis association with colon cancer and gastrointestinal malignancies. The lungs are not a common source of this type of an infection. Echocardiogram did not reveal any evidence of endocarditis. Patient may need a colonoscopy if this has not been done recently. Computed tomography scan of the abdomen revealed no abnormal bowel wall thickening or obstructive changes. 2 recent evaluation for a left lung pneumonia as the patient is a masslike consolidation in the severe several of the left lower lobe in addition to nonspecific mediastinal lymphadenopathy. Malignancy cannot be completely excluded 3 seizure disorder currently on Trileptal 4 hypertension 5 hyperlipidemia 6 diabetes mellitus with peripheral neuropathy 7 chronic renal failure stage III kidney disease 8 coronary artery disease with previous coronary intervention and stenting 9 prostate cancer with previous radiation therapy/brachytherapy/radiation seeds 10 previous history of CVA 11 peripheral neuropathy 12 degenerative disc disease 13 obesity with a BMI of 36.7 Recommendation: The patient was seen and evaluated by Dr. Gaxiola. He is improving from the pulmonary standpoint. Will continue with IV Solu-Medrol for another 24 hours. Continue bronchodilators. Continue antibiotics. We'll increase his activity as tolerated. The plan is for subacute rehabilitation at [facility] versus inpatient rehabilitation at [facility]. We'll continue to follow. I, the cosigning physician, performed a history & physical examination of the patient. Lungs sounds have bilateral end expiratory wheeze. Faint crackles in the posterior bases.. Maintaining good O2 saturations in the 90s on 3 L/m per nasal cannula. I discussed the assessment and plan of care with my nurse practitioner, Vidhi Herrera. I attest to the above note as dictated by her.
[2017-08-27] MEDS: INSULIN PUMP MEAL BOLUS 1 UNIT MISC MISCELLANE SCH ×3 (12:06→21:45)
--- NOTE | 2017-08-27 13:52 | CDI ---
Last Revision, May 2017 Documentation Clarification Form Date: 08/27/17 3613 From: Mitra Torres RN, CCDS Admit Date: 08/22/2017 3:33:00 PM Patient Name: Narayan Paez Visit Number: [id number] ATTENTION: The Clinical Documentation Specialists (CDI) and [facility] Coding Staff appreciate your assistance in clarifying documentation. Please respond to the clarification below the line at the bottom and electronically sign. The CDI & [facility] Coding staff will review the response and follow-up if needed. Please note: Queries are made part of the Legal Health Record. If you have any questions, please contact the author of this message via ITS. Dr. Cedric Gold/ Jo Pablo CNP Altered mental status was documented in the medical record several times and requires further specificity. Patient history/risk factors: Tremor like movements of body at home with fever of 1003, CAD, DM, neuropathy, Hx of CVA with right sided weakness, HTN, CKD Clinical Indicators: 08/22 Neurology progress note: Today he was showing signs of increased confusion and sepsis 08/24 Attending Progress Note: "1 acute febrile episode with altered mentation, likely infection/septic in nature currently under investigation." Labs: Hgb 12.4/11.4, creatinine 1.4/1.37/1.3/1.35/1.2 CXR:"Persistent left perihilar infiltrate. Persistent right medial basilar infiltrate and/or atelectasis. Background abnormal thoracic adenopathy noted. No new infiltrate is present. No significant change from one day earlier." CT Brain:- Blood cultures: + group D streptococcus Treatment: Zosyn 3.375 gm IVPB, IVF Bolus, po Tylenol In your professional opinion, please clarify the etiology of the altered mental status, if known. Encephalopathy (specify Type and Underlying Medical Illness) Dementia (if know, specify Type and if with/without Behavioral Disturbance) Other condition (please specify) Unable to determine Please continue to document in your progress notes and discharge summary in order to capture severity of illness and risk of mortality. Include clinical findings that support your diagnosis. MTDD
--- NOTE | 2017-08-27 15:40 | PN ---
PROGRESS NOTE DATE OF SERVICE: 08/27/2017. REASON FOR FOLLOWUP: 1. Pneumonia. 2. Bacteremia. INTERVAL HISTORY: The patient is afebrile. He is complaining of shortness of breath. He has very minimal cough not bringing up any sputum. No chest pain. No abdominal pain. No diarrhea. EXAMINATION: Blood pressure 129/68 with a pulse of 74. Temperature 96.9. He is 93% on 3 L nasal cannula. General description is an elderly male lying in bed in no distress. Respiratory system: Unlabored breathing with decreased breath sounds in the base, with some occasional wheeze. Heart S1, S2 regular rate and rhythm. No murmur. ABDOMEN: Soft, no tenderness. Extremities: Some trace edema of feet. LABS: Hemoglobin 11.4, white count 9.5 with a BUN of 30, creatinine is 1.20. Blood culture repeat has been negative. Sputum is so far negative. DIAGNOSTIC IMPRESSION AND PLAN: 1. Patient with pneumonia admitted to the hospital with sepsis. Initial sputum was negative for resistant pathogen because of loss of IV antibiotic has been switched to the Augmentin will be continued for another 7 to 10 days. 2. Patient with a positive blood culture with group D Enterococcus. Urine was negative. not show any inflammation. was not clear when the last time the patient did have a colonoscopy. He will benefit from a screening colonoscopy in the outpatient setting to make sure no other source of his bacteremia and no evidence of any malignancy. MMODL / IJN: [id number] /
[2017-08-27 16:48] LABS: Glucose,Whole Blood 296 mg/dL (75-99)
[2017-08-27] MEDS: SODIUM CHLORIDE 0.9% 1,000 ML IV SCH (17:06)
[2017-08-27 20:38] LABS: Glucose,Whole Blood 258 mg/dL (75-99)
[2017-08-27] MEDS: DONEPEZIL 5 MG TAB PO SCH (21:05)
[2017-08-27] MEDS: ATORVASTATIN 80 MG TAB PO SCH (21:05)
[2017-08-27] MEDS: PRIMIDONE 50 MG TAB PO SCH (21:06)
--- NOTE | 2017-08-27 21:46 | P.PN ---
Subjective Progress Note Date: 08/27/17 This patient is a 66-year-old male who was admitted to Hospital with symptoms of altered mental status and fever. He has a history of underlying seizure disorder for which he has been taking Trileptal. He was having increasing symptoms of tremor and questionable seizure activity yesterday on examination. We have recommended a EEG test to be completed today for further evaluation. His Trileptal level is still pending from the laboratory. He was 6. In seeing severe tremulousness with a high-grade fever at home 103F. He denied any episode of loss of consciousness with these episodes of tremulousness. He underwent a computed tomography scan of the chest in July 2017 which revealed mediastinal adenopathy. He is being evaluated for this by pulmonary medicine and was recommended to have a PET scan done. He did undergo a computed tomography scan of the brain yesterday on admission which was normal with no acute process identified. At this time we would recommend for him to complete his EEG which will be reviewed. He is afebrile today and will continue on current antibiotics. Patient is doing much better today in terms of his alertness and able to follow simple commands. Patient was seen by infectious disease and is being treated for suspicion of pneumonia. Sputum culture revealed gram-positive bacteremia. Patient has been placed on vancomycin with close monitoring of his kidney function. Zosyn is to be continued at this time as well. Overall the patient is showing improvement in his mental status. He has had no further tremors suggesting his initial presentation was a febrile illness producing the tremulousness that was noted yesterday on initial evaluation. Patient underwent a routine EEG today which was reviewed and fails to reveal any evidence for epileptiform discharges. Patient is being evaluated for left lung pneumonia and masslike consolidation and mediastinal lymphadenopathy. Pulmonary medicine has seen the patient and malignancy cannot be completely excluded. Patient has had no witnessed seizure activity since admission to the hospital. His Trileptal level was completed on 08/23/2017 and it does come back therapeutic at 23.3. Patient is to continue on his current dose of Trileptal. As noted his EEG failed to reveal any focal epileptiform discharges. Patient was evaluated for possible inpatient rehab placement by Dr. Coyne. Infectious disease continues to follow the patient closely. He has positive blood cultures for group D enterococcus. He is being considered for possible colonoscopy procedure. Patient's breathing has shown slight improvement today. We will continue to monitor his progress closely during this admission. Objective - Vital Signs Vital signs: Vital Signs Temp 97.0 F L 08/27/17 15:41 Pulse 90 08/27/17 17:02 Resp 18 08/27/17 15:41 BP 157/95 08/27/17 15:41 Pulse Ox 96 08/27/17 15:41 Intake & Output 08/26/17 08/27/17 08/27/17 18:59 06:59 18:59 Intake Total 424.958 184.223 840 Output Total 100 Balance 324.958 184.223 840 Weight 113.2 kg Intake: IV 160 160 0.9+ 160 160 Intake, IV Titration 84.958 24.223 Amount Insulin Regular 100 unit 84.958 24.223 In Sodium Chloride 0.9% 100 ml @ Titrate IV .Q0M [facility], [facility] Rx#:[id number] Oral 180 840 Output: Urine 100 Other: Voiding Method Toilet Urinal # Voids 3 - Exam Physical examination: PHYSICAL EXAMINATION: Patient is resting comfortably in bed. VITAL SIGNS: Blood pressure is [157/95]. Heart rate is [77]. Respiration is [18] . Temperature is [97.0]. HEENT: Head is atraumatic, neck is supple, there were no carotid bruits. CHEST: Lungs are clear to auscultation and percussion. CARDIAC: S1, S2 normal rate and rhythm. There is no murmur. ABDOMEN: Soft and nontender. Bowel sounds are present. EXTREMITIES: There is no pedal edema. Peripheral pulses are present. Neurological examination: Patient's neurological examination is unchanged from yesterday. Patient is more awake today. He is following simple commands. He has no evidence of any body tremors or tremulousness on examination today. His neurological examination is nonfocal. - Labs CBC & Chem 7: 08/27/17 06:03 08/27/17 06:03 Labs: Abnormal Lab Results - Last 24 Hours (Table) 08/26/17 08/26/17 08/26/17 Range/Units 19:19 21:14 23:04 RBC (4.30-5.90) m/uL Hgb (13.0-17.5) gm/dL Hct (39.0-53.0) % Neutrophils # (1.3-7.7) k/uL Lymphocytes # (1.0-4.8) k/uL BUN (9-20) mg/dL Glucose (74-99) mg/dL POC Glucose (mg/dL) 294 H 291 H 275 H (75-99) mg/dL Total Protein (6.3-8.2) g/dL Albumin (3.5-5.0) g/dL 08/27/17 08/27/17 08/27/17 Range/Units 01:01 03:05 05:06 RBC (4.30-5.90) m/uL Hgb (13.0-17.5) gm/dL Hct (39.0-53.0) % Neutrophils # (1.3-7.7) k/uL Lymphocytes # (1.0-4.8) k/uL BUN (9-20) mg/dL Glucose (74-99) mg/dL POC Glucose (mg/dL) 226 H 180 H 158 H (75-99) mg/dL Total Protein (6.3-8.2) g/dL Albumin (3.5-5.0) g/dL 08/27/17 08/27/17 08/27/17 Range/Units 06:03 06:03 06:53 RBC 4.09 L (4.30-5.90) m/uL Hgb 11.4 L (13.0-17.5) gm/dL Hct 33.7 L (39.0-53.0) % Neutrophils # 8.8 H (1.3-7.7) k/uL Lymphocytes # 0.2 L (1.0-4.8) k/uL BUN 30 H (9-20) mg/dL Glucose 181 H (74-99) mg/dL POC Glucose (mg/dL) 176 H (75-99) mg/dL Total Protein 5.9 L (6.3-8.2) g/dL Albumin 3.3 L (3.5-5.0) g/dL 08/27/17 08/27/17 08/27/17 Range/Units 08:58 11:41 16:39 RBC (4.30-5.90) m/uL Hgb (13.0-17.5) gm/dL Hct (39.0-53.0) % Neutrophils # (1.3-7.7) k/uL Lymphocytes # (1.0-4.8) k/uL BUN (9-20) mg/dL Glucose (74-99) mg/dL POC Glucose (mg/dL) 272 H 256 H 296 H (75-99) mg/dL Total Protein (6.3-8.2) g/dL Albumin (3.5-5.0) g/dL Microbiology - Last 24 Hours (Table) 08/23/17 15:36 Blood Culture - Preliminary Blood No Growth after 96 hours 08/26/17 19:08 Gram Stain - Preliminary Sputum Sputum Culture - Preliminary Assessment and Plan (1) Fever Current Visit: Yes Status: Acute Code(s): R50.9 - FEVER, UNSPECIFIED SNOMED Code(s): 332364624 (2) Sepsis Current Visit: Yes Status: Acute Code(s): A41.9 - SEPSIS, UNSPECIFIED ORGANISM SNOMED Code(s): 98914559 (3) Seizure Current Visit: No Status: Acute Code(s): R56.9 - UNSPECIFIED CONVULSIONS SNOMED Code(s): 78191142 (4) CAD (coronary artery disease) Current Visit: No Status: Chronic Code(s): I25.10 - ATHSCL HEART DISEASE OF [place] CORONARY ARTERY W/O ANG PCTRS SNOMED Code(s): 37641381 Plan: This patient is a 66-year-old male who is being evaluated for pneumonia and bacteremia. Patient has positive blood cultures for group D enterococcus. Infectious disease is monitoring his condition very closely. Patient has a known history of underlying seizure disorder and is currently on Trileptal. Trileptal level is therapeutic. He has had no further episodes of tremors or seizure-like activity. His routine EEG failed to reveal any seizure focus. Patient is being considered for possible inpatient rehab versus ECF placement. We will await further recommendations from Dr. Coyne. His overall prognosis at this time remains guarded.
[2017-08-28] MEDS: IPRATROPIUM-ALBUTEROL 3 ML NEB INHALATION PRN ×6 (00:13→20:31)
[2017-08-28] MEDS: HEPARIN SODIUM,PORCINE 5,000 UNIT/ML 1 ML VIAL SQ SCH ×3 (00:15→15:00)
[2017-08-28] MEDS: methylPREDNISolone SOD SUCCI 125 MG/2 ML VIAL IV SCH ×3 (00:15→12:18)
[2017-08-28] MEDS: OMEGA ACID ETHYL ESTERS PO SCH ×2 (05:13→08:37)
[2017-08-28 05:55] LABS: Glucose,Whole Blood 206 mg/dL (75-99)
[2017-08-28] MEDS: PANTOPRAZOLE 40 MG TABLET PO SCH (06:21)
[2017-08-28 06:53] LABS: Basophils % (A) 0 %; Eosinophils % (A) 0 %; HCT 35.3 % (39.0-53.0); HGB 11.9 gm/dL (13.0-17.5); Lymphocytes # (A) 0.3 k/uL (1.0-4.8); Lymphocytes % (A) 3 %; MCH 28.3 pg (25.0-35.0); MCHC 33.7 g/dL (31.0-37.0); MCV 83.9 fL (80.0-100.0); Mean Platelet Volume 7.2; Monocytes # (A) 0.4 k/uL (0-1.0); Monocytes % (A) 4 %; Neutrophils # (A) 8.9 k/uL (1.3-7.7); Neutrophils % (A) 91 %; Platelet Count 239 k/uL (150-450); RDW 14.5 % (11.5-15.5); WBC 9.7 k/uL (3.8-10.6)
[2017-08-28 07:00] LABS: Albumin 3.6 g/dL (3.5-5.0); Calcium 9.4 mg/dL (8.4-10.2); Potassium 4.7 mmol/L (3.5-5.1); Total Bilirubin 0.4 mg/dL (0.2-1.3); Total Protein 6.2 g/dL (6.3-8.2)
[2017-08-28] MEDS: INSULIN PUMP MEAL BOLUS 1 UNIT MISC MISCELLANE SCH ×4 (08:29→22:10)
[2017-08-28] MEDS: AMOXIC-POT CLAV 875-125MG 1 EACH TAB PO SCH ×2 (08:35→22:09)
[2017-08-28] MEDS: ASPIRIN 81 MG PO SCH (08:36)
[2017-08-28] MEDS: LOSARTAN 50 MG TAB PO SCH (08:36)
[2017-08-28] MEDS: ISOSORBIDE MONONITRATE ER 30 MG TAB.ER.24H PO SCH (08:36)
[2017-08-28] MEDS: GABAPENTIN 400 MG CAP PO SCH ×2 (08:36→22:10)
[2017-08-28] MEDS: MEMANTINE 10 MG TAB PO SCH ×2 (08:37→22:11)
[2017-08-28] MEDS: METOPROLOL TARTRATE 25 MG TAB PO SCH (08:37)
[2017-08-28] MEDS: PRASUGREL 10 MG TAB PO SCH (08:38)
[2017-08-28] MEDS: OXcarbazepine 300 MG TAB PO SCH ×2 (08:38→22:12)
[2017-08-28 11:50] LABS: Glucose,Whole Blood 193 mg/dL (75-99)
--- NOTE | 2017-08-28 13:56 | PN ---
PROGRESS NOTE DATE OF SERVICE: 08/28/2017 REASON FOR FOLLOWUP: 1. Pneumonia. 2. Bacteremia. INTERVAL HISTORY: The patient is afebrile, he is breathing comfortably on room air. He was able to get up and walk around. Has very minimal cough, which is dry in nature. No abdominal pain. No nausea, vomiting and no diarrhea. PHYSICAL EXAMINATION: Blood pressure is 158/95 with a pulse of 78, temperature of 98.1. He is 95% on 3 L nasal cannula. General description is an elderly male, up in the bed in no distress. RESPIRATORY SYSTEM: Unlabored breathing with decreased breath sounds at the base, no wheeze. HEART: S1, S2. Regular rate and rhythm. ABDOMEN: Soft, no tenderness. LABS: Hemoglobin 11.9, white count of 9.7 with a BUN of 29, creatinine 1.28. Blood culture repeat has been negative. Sputum is so far negative. DIAGNOSTIC IMPRESSION AND PLAN: Patient in the hospital with sepsis, source is likely pneumonia, sputum has been usual respiratory tomeka, likely community-acquired pathogen. Currently on oral Augmentin. Continue for about a week. Should cover his positive blood cultures, the source of that bacteremia is not very clear. The question of possible contamination versus a GI source and may benefit in the outpatient setting with a colonoscopy. All his questions were answered. Continue supportive care. MMODL / IJN: [id number] /
--- NOTE | 2017-08-28 14:04 | P.PN ---
Subjective Progress Note Date: 08/28/17 Principal diagnosis: Acute sepsis with Streptococcus group D On 08/24/2017 the patient is being seen for a follow-up. He has a congested cough. He is also short of breath even at rest. He is bronchospastic and wheezy. The patient had a rough night throughout the night with respiratory distress. His mentation is appropriate however is very shaky and weak and he has lost and coordination. For example is having difficulties holding his nebulizer To continue the breathing treatments. 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 He has increased tremors yet there are no seizure activity noted. I repeated the chest x-ray and there is persistent left perihilar infiltrate along with a new right medial basilar infiltrate/ atelectasis. There is also left hilar prominence. The patient was febrile throughout the night yesterday and currently is afebrile. He is currently on a combination of IV Zosyn and vancomycin. The patient is also on DuoNeb neb last 2 minutes [id number]. We'll go ahead and add Solu-Medrol as the patient was found to be significantly bronchospastic and wheezy on today's evaluation. On 08/25/2017, the patient is much improved compared to yesterday. He looks much more alert and awake and communicating. His tremors have subsided. His strength is improved. He has congested cough with limited amount of sputum production. No hemoptysis no pleurisy. No chest pain. No fever or chills. The blood culture was positive for group D non-enterococcus strep which is sensitive to penicillins. I do have this patient on a combination of Zosyn and vancomycin. The patient is also on DuoNeb the right treatment around-the- clock. The patient on IV Solu-Medrol. The patient has persistent left perihilar infiltrate on today's chest x-ray. There is also persistent right middle basilar infiltrate that needs to be followed up very closely. The patient's white cell count is not elevated. The patient has no leukocytosis. The patient is doing well. All of the electrodes are within normal limits. Creatinine stable at 1.3. Lactic acid level was down to 1.4. Patient was reevaluated today on 08/26/2017, feeling much better, breathing a lot easier, he is already ambulating, and he is being considered for rehab. Patient has been on a combination of Zosyn and vancomycin. Patient remains on bronchodilators, still being followed by infectious disease on consultation. Chest x-ray from yesterday showed left perihilar infiltrate and right medial basilar infiltrate and atelectasis. Reevaluated today on 08/28/2017, continues to do well, patient is being considered for discharge, from our perspective the patient could be discharged, however he will need final clearance by infectious disease on the case, and he was definitely need to have follow-up in our office regarding his abnormal chest x-ray. I read the note by the infectious disease specialist on the case, he already switched him to Augmentin for Streptococcus the infection. And bacteremia. Objective - Vital Signs Vital signs: Vital Signs Temp 98.0 F 08/28/17 12:00 Pulse 68 08/28/17 12:19 Resp 16 08/28/17 12:00 BP 139/75 08/28/17 12:00 Pulse Ox 96 08/28/17 12:00 Intake & Output 08/27/17 08/28/17 08/28/17 18:59 06:59 18:59 Intake Total 840 360 Balance 840 360 Weight 109 kg Intake: Oral 840 360 Other: Voiding Method Toilet Urinal # Voids 3 1 - Exam GENERAL EXAM: Alert, active, comfortable in no apparent distress. HEAD: Normocephalic. EYES: Normal reaction of pupils, equal size. NOSE: Clear with pink turbinates. THROAT: No erythema or exudates. NECK: No masses, no JVD. CHEST: No chest wall deformity. LUNGS: Equal air entry no crackles nor rhonchi no wheezes. CVS: S1 and S2 normal with no audible murmur, regular rhythm. ABDOMEN: No hepatosplenomegaly, normal bowel sounds, no guarding or rigidity. SPINE: No scoliosis or deformity SKIN: No rashes CENTRAL NERVOUS SYSTEM: No focal deficits, tone is normal in all 4 extremities. EXTREMITIES: There is no peripheral edema. No clubbing, no cyanosis. Peripheral pulses are intact. - Labs CBC & Chem 7: 08/28/17 06:20 08/28/17 06:20 Labs: Abnormal Lab Results - Last 24 Hours (Table) 08/27/17 08/27/17 08/28/17 Range/Units 16:39 20:37 05:53 RBC (4.30-5.90) m/uL Hgb (13.0-17.5) gm/dL Hct (39.0-53.0) % Neutrophils # (1.3-7.7) k/uL Lymphocytes # (1.0-4.8) k/uL BUN (9-20) mg/dL Creatinine (0.66-1.25) mg/dL Glucose (74-99) mg/dL POC Glucose (mg/dL) 296 H 258 H 206 H (75-99) mg/dL Total Protein (6.3-8.2) g/dL 08/28/17 08/28/17 08/28/17 Range/Units 06:20 06:20 11:38 RBC 4.20 L (4.30-5.90) m/uL Hgb 11.9 L (13.0-17.5) gm/dL Hct 35.3 L (39.0-53.0) % Neutrophils # 8.9 H (1.3-7.7) k/uL Lymphocytes # 0.3 L (1.0-4.8) k/uL BUN 29 H (9-20) mg/dL Creatinine 1.28 H (0.66-1.25) mg/dL Glucose 224 H (74-99) mg/dL POC Glucose (mg/dL) 193 H (75-99) mg/dL Total Protein 6.2 L (6.3-8.2) g/dL Microbiology - Last 24 Hours (Table) 08/23/17 15:36 Blood Culture - Preliminary Blood No Growth after 96 hours Assessment and Plan Assessment: 1 acute sepsis with streptococcal group D, not enterococcal microorganism. Source most probably a pneumonia as the patient has perihilar infiltrate on the left on bibasilar pulmonary infiltration. Fever subsided. Lactic acid normalized. Mental status also improved and the patient is much more alert and awake on today's evaluation. Note that group D streptococcal infection is most commonly associated with endocarditis and other considerations would include urine checked infection, and less likely possibilities would include meningitis and peritonitis and arthritis. Another possibility would be bowel infection with strep bovis association with colon cancer and gastrointestinal malignancies. The lungs are not a common source of this type of an infection. My recommendation is to do an echocardiogram to rule out endocarditis and subsequently patient may need a colonoscopy if this has not been done recently. 2 recent evaluation for a left lung pneumonia as the patient is a masslike consolidation in the severe several of the left lower lobe in addition to nonspecific mediastinal lymphadenopathy. Malignancy cannot be completely excluded 3 seizure disorder currently on Trileptal 4 hypertension 5 hyperlipidemia 6 diabetes mellitus with peripheral neuropathy 7 chronic renal failure stage III kidney disease 8 coronary artery disease with previous coronary intervention and stenting 9 prostate cancer with previous radiation therapy/brachytherapy/radiation seeds 10 previous history of CVA 11 peripheral neuropathy 12 degenerative disc disease 13 obesity with a BMI of 36.7 Recommendation: Cleared by pulmonary for discharge planning, follow-up with Dr. Reyes on outpatient basis. Time with Patient: Less than 30
[2017-08-28] MEDS: SODIUM CHLORIDE 0.9% 1,000 ML IV SCH (15:00)
--- NOTE | 2017-08-28 17:11 | PN ---
PROGRESS NOTE DATE OF SERVICE: 08/28/2017 I am covering for Dr. Gold. This 66-year-old gentleman with a past medical history of multiple medical problems was admitted with bilateral pneumonia as well as possible sepsis. The patient is still having shortness of breath and the patient also had a fever. The patient's CT scan showed adenopathy. The patient is on broad-spectrum IV antibiotics. Infectious Disease as well as Pulmonary are following the patient closely. The patient still has some cough at this time. Strep D sepsis is suspected. A 2D echo with Doppler was done which shows ejection fraction about 55% to 60% with mild valvular abnormalities. Past medical history reviewed. REVIEW OF SYSTEMS: CARDIOVASCULAR SYSTEM: As mentioned earlier. RESPIRATORY SYSTEM: As mentioned earlier. GI: No nausea, vomiting. : No dysuria or retention. NERVOUS SYSTEM: No numbness, weakness. CURRENT MEDICATIONS: Current medications are reviewed and include: 1. Tylenol 650 q.6 p.r.n. [address] [place] 7.5 t.i.d. p.r.n. 3. DuoNeb q.i.d. and p.r.n. 4. Augmentin 875 mg p.o. b.i.d. 5. Aspirin 81 mg daily. 6. Lipitor 80 mg at bedtime. 7. Flexeril 10 mg at bedtime. 8. Aricept 5 mg at bedtime. 9. Vitamin D2. 10.Neurontin. 11.Mucinex. 12.Heparin. 13.Imdur. 14.Ativan. 15.Cozaar. Namenda. 16.Solu-Medrol 60 IV q.6. 17.Lopressor 25 mg p.o. daily. 18.Insulin pump. PHYSICAL EXAMINATION: Patient is alert, oriented x3. Pulse is 71, blood pressure 152/71, respiration 16, temperature 98.2, pulse ox 93% on 3 L. HEENT: Conjunctivae normal. Oral mucosa moist. NECK: No jugular venous distention. No carotid bruit. No lymph node enlargement. CARDIOVASCULAR SYSTEM: S1, S2 muffled. No S3. No S4. RESPIRATORY SYSTEM: Breath sounds diminished at the bases. A few scattered rhonchi and expiratory wheezing and crackles. ABDOMEN: Soft, nontender. No mass palpable. LEGS: No edema. No swelling. NERVOUS SYSTEM: No focal deficit. LABS: WBC 9.7, hemoglobin 11.9, creatinine 1.28. ASSESSMENT: 1. Multilobar pneumonia with bibasilar and left perihilar areas with acute sepsis, strep group D, not enterococcus bacteremia, and sepsis. 2. Spastic and twitching movements of the right upper extremity. 3. Mediastinal hilar lymphadenopathy on the CT scan. 4. Diabetes mellitus, type 2. 5. History of cerebrovascular accident in 2016. 6. History of coronary artery disease and stent placement. 7. Hypertension. 8. Hyperlipidemia. 9. Chronic kidney disease, stage III. 10.History of prostate cancer. 11.History of nicotine dependence. 12.Obesity with body mass index of 36.7. 13.Metabolic encephalopathy secondary to sepsis and change in mental status, improving. RECOMMENDATIONS AND DISCUSSION: In this 66-year-old gentleman who presented with multiple complex medical issues, we will monitor the patient closely, continue the current medications, continue symptomatic treatment, continue with broad-spectrum IV antibiotics. Continue with the bronchodilators. Otherwise, I would also recommend tapering the steroids today and closely follow with Pulmonary and Infectious Disease. The repeat cultures are negative at this time. The prognosis is guarded. Discussed with the patient, who understands and agrees. Further recommendations to follow. MMODL / IJN: [id number] /
[2017-08-28 17:18] LABS: Glucose,Whole Blood 213 mg/dL (75-99)
[2017-08-28 21:06] LABS: Glucose,Whole Blood 246 mg/dL (75-99)
[2017-08-28] MEDS: ATORVASTATIN 80 MG TAB PO SCH (22:09)
[2017-08-28] MEDS: DONEPEZIL 5 MG TAB PO SCH (22:10)
[2017-08-28] MEDS: PRIMIDONE 50 MG TAB PO SCH (22:12)
[2017-08-29] MEDS: HEPARIN SODIUM,PORCINE 5,000 UNIT/ML 1 ML VIAL SQ SCH ×3 (00:44→15:43)
[2017-08-29] MEDS: methylPREDNISolone SOD SUCCI 40 MG/ML 1 ML VIAL IV SCH ×3 (00:44→15:43)
[2017-08-29] MEDS: OMEGA ACID ETHYL ESTERS PO SCH ×2 (00:45→09:12)
[2017-08-29 05:51] LABS: Glucose,Whole Blood 94 mg/dL (75-99)
[2017-08-29 06:29] LABS: Basophils % (A) 0 %; Eosinophils % (A) 0 %; HCT 35.7 % (39.0-53.0); HGB 12.1 gm/dL (13.0-17.5); Lymphocytes # (A) 0.6 k/uL (1.0-4.8); Lymphocytes % (A) 8 %; MCH 27.9 pg (25.0-35.0); MCHC 33.8 g/dL (31.0-37.0); MCV 82.3 fL (80.0-100.0); Mean Platelet Volume 6.9; Monocytes # (A) 0.4 k/uL (0-1.0); Monocytes % (A) 5 %; Neutrophils # (A) 6.8 k/uL (1.3-7.7); Neutrophils % (A) 85 %; Platelet Count 230 k/uL (150-450); RBC 4.34 m/uL (4.30-5.90); RDW 14.6 % (11.5-15.5)
[2017-08-29] MEDS: PANTOPRAZOLE 40 MG TABLET PO SCH (06:43)
[2017-08-29 06:47] LABS: Albumin 3.4 g/dL (3.5-5.0); Calcium 9.4 mg/dL (8.4-10.2); Total Bilirubin 0.4 mg/dL (0.2-1.3); Total Protein 5.9 g/dL (6.3-8.2)
[2017-08-29] MEDS: IPRATROPIUM-ALBUTEROL 3 ML NEB INHALATION PRN ×2 (08:02→12:05)
[2017-08-29] MEDS: INSULIN PUMP MEAL BOLUS 1 UNIT MISC MISCELLANE SCH ×3 (09:02→17:19)
[2017-08-29] MEDS: ASPIRIN 81 MG PO SCH (09:03)
[2017-08-29] MEDS: ISOSORBIDE MONONITRATE ER 30 MG TAB.ER.24H PO SCH (09:03)
[2017-08-29] MEDS: AMOXIC-POT CLAV 875-125MG 1 EACH TAB PO SCH (09:03)
[2017-08-29] MEDS: GABAPENTIN 400 MG CAP PO SCH (09:03)
[2017-08-29] MEDS: MEMANTINE 10 MG TAB PO SCH (09:04)
[2017-08-29] MEDS: METOPROLOL TARTRATE 25 MG TAB PO SCH (09:04)
[2017-08-29] MEDS: PRASUGREL 10 MG TAB PO SCH (09:05)
[2017-08-29] MEDS: OXcarbazepine 300 MG TAB PO SCH (09:05)
[2017-08-29] MEDS: LOSARTAN 50 MG TAB PO SCH (10:15)
[2017-08-29 11:06] VITALS: RESP 20; TEMP 97.1
--- NOTE | 2017-08-29 11:51 | P.PN ---
Subjective Progress Note Date: 08/29/17 Principal diagnosis: Acute sepsis with Streptococcus group D On 08/24/2017 the patient is being seen for a follow-up. He has a congested cough. He is also short of breath even at rest. He is bronchospastic and wheezy. The patient had a rough night throughout the night with respiratory distress. His mentation is appropriate however is very shaky and weak and he has lost and coordination. For example is having difficulties holding his nebulizer To continue the breathing treatments. 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 He has increased tremors yet there are no seizure activity noted. I repeated the chest x-ray and there is persistent left perihilar infiltrate along with a new right medial basilar infiltrate/ atelectasis. There is also left hilar prominence. The patient was febrile throughout the night yesterday and currently is afebrile. He is currently on a combination of IV Zosyn and vancomycin. The patient is also on DuoNeb neb last 2 minutes [id number]. We'll go ahead and add Solu-Medrol as the patient was found to be significantly bronchospastic and wheezy on today's evaluation. On 08/25/2017, the patient is much improved compared to yesterday. He looks much more alert and awake and communicating. His tremors have subsided. His strength is improved. He has congested cough with limited amount of sputum production. No hemoptysis no pleurisy. No chest pain. No fever or chills. The blood culture was positive for group D non-enterococcus strep which is sensitive to penicillins. I do have this patient on a combination of Zosyn and vancomycin. The patient is also on DuoNeb the right treatment around-the- clock. The patient on IV Solu-Medrol. The patient has persistent left perihilar infiltrate on today's chest x-ray. There is also persistent right middle basilar infiltrate that needs to be followed up very closely. The patient's white cell count is not elevated. The patient has no leukocytosis. The patient is doing well. All of the electrodes are within normal limits. Creatinine stable at 1.3. Lactic acid level was down to 1.4. Patient was reevaluated today on 08/26/2017, feeling much better, breathing a lot easier, he is already ambulating, and he is being considered for rehab. Patient has been on a combination of Zosyn and vancomycin. Patient remains on bronchodilators, still being followed by infectious disease on consultation. Chest x-ray from yesterday showed left perihilar infiltrate and right medial basilar infiltrate and atelectasis. Reevaluated today on 08/28/2017, continues to do well, patient is being considered for discharge, from our perspective the patient could be discharged, however he will need final clearance by infectious disease on the case, and he was definitely need to have follow-up in our office regarding his abnormal chest x-ray. I read the note by the infectious disease specialist on the case, he already switched him to Augmentin for Streptococcus the infection. And bacteremia. Patient was reevaluated today on 08/29/2017, patient continues to do well, O2 saturations are marginal, but the patient is asymptomatic. O2 sat is 88% on room air, hence the patient will likely benefit from having home O2 on discharge. He was cleared for discharge today, patient will need to be kept on oral antibiotics for his streptococcal infection. And I believe he was already cleared by infectious disease to go home on Augmentin or go to a rehab facility on Augmentin. Patient denies any cough no wheezing no shortness of breath no chest pain no fever no chills no hemoptysis. Objective - Vital Signs Vital signs: Vital Signs Temp 97.1 F L 08/29/17 11:04 Pulse 75 08/29/17 11:04 Resp 20 08/29/17 11:04 BP 173/84 08/29/17 11:04 Pulse Ox 91 L 08/29/17 11:04 Intake & Output 08/28/17 08/29/17 08/29/17 18:59 06:59 18:59 Intake Total 600 340 Output Total 100 Balance 600 -100 340 Weight 109.1 kg Intake: IV 100 ferric gluconate 100 Oral 600 240 Output: Urine 100 Other: Voiding Method Toilet Toilet Urinal Urinal # Voids 1 1 - Exam GENERAL EXAM: Alert, active, comfortable in no apparent distress. HEAD: Normocephalic. EYES: Normal reaction of pupils, equal size. NOSE: Clear with pink turbinates. THROAT: No erythema or exudates. NECK: No masses, no JVD. CHEST: No chest wall deformity. LUNGS: Equal air entry no crackles nor rhonchi no wheezes. CVS: S1 and S2 normal with no audible murmur, regular rhythm. ABDOMEN: No hepatosplenomegaly, normal bowel sounds, no guarding or rigidity. SPINE: No scoliosis or deformity SKIN: No rashes CENTRAL NERVOUS SYSTEM: No focal deficits, tone is normal in all 4 extremities. EXTREMITIES: There is no peripheral edema. No clubbing, no cyanosis. Peripheral pulses are intact. - Labs CBC & Chem 7: 08/29/17 05:40 08/29/17 05:40 Labs: Abnormal Lab Results - Last 24 Hours (Table) 08/28/17 08/28/17 08/28/17 Range/Units 11:38 16:25 21:04 Hgb (13.0-17.5) gm/dL Hct (39.0-53.0) % Lymphocytes # (1.0-4.8) k/uL BUN (9-20) mg/dL Glucose (74-99) mg/dL POC Glucose (mg/dL) 193 H 213 H 246 H (75-99) mg/dL ALT (21-72) U/L Total Protein (6.3-8.2) g/dL Albumin (3.5-5.0) g/dL 08/29/17 08/29/17 Range/Units 05:40 05:40 Hgb 12.1 L (13.0-17.5) gm/dL Hct 35.7 L (39.0-53.0) % Lymphocytes # 0.6 L (1.0-4.8) k/uL BUN 29 H (9-20) mg/dL Glucose 101 H (74-99) mg/dL POC Glucose (mg/dL) (75-99) mg/dL ALT 91 H (21-72) U/L Total Protein 5.9 L (6.3-8.2) g/dL Albumin 3.4 L (3.5-5.0) g/dL Microbiology - Last 24 Hours (Table) 08/26/17 19:08 Gram Stain - Final Sputum Sputum Culture - Final 08/23/17 15:36 Blood Culture - Preliminary Blood No Growth after 120 hours Assessment and Plan Assessment: 1 acute sepsis with streptococcal group D, 2 recent evaluation for a left lung pneumonia as the patient is a masslike consolidation in the severe several of the left lower lobe in addition to nonspecific mediastinal lymphadenopathy. Malignancy cannot be completely excluded, but felt to be less likely, granted the patient will need to have follow-up on outpatient basis. 3 seizure disorder currently on Trileptal 4 hypertension 5 hyperlipidemia 6 diabetes mellitus with peripheral neuropathy 7 chronic renal failure stage III kidney disease 8 coronary artery disease with previous coronary intervention and stenting 9 prostate cancer with previous radiation therapy/brachytherapy/radiation seeds 10 previous history of CVA 11 peripheral neuropathy 12 degenerative disc disease 13 obesity with a BMI of 36.7 Recommendation: Cleared by pulmonary for discharge planning, on Augmentin follow -up with Dr. Reyes on outpatient basis. Time with Patient: Less than 30
[2017-08-29 12:14] LABS: Glucose,Whole Blood 78 mg/dL (75-99)
[2017-08-29 13:19] VITALS: BMI 34.4
[2017-08-29] MEDS: SODIUM CHLORIDE 0.9% 1,000 ML IV SCH (15:43)
--- NOTE | 2017-08-29 16:21 | PN ---
PROGRESS NOTE DATE OF SERVICE: 08/29/2017 REASON FOR FOLLOW UP: 1. Pneumonia. 2. Streptococcus bacteremia. INTERVAL HISTORY: The patient is afebrile. He is breathing comfortably. He did have a cough but not bringing up any sputum. No chest pain. No abdominal pain. No diarrhea. PHYSICAL EXAMINATION: Blood pressure 173/84 with a pulse of 75, temperature 97.1. He is 91% on 2 L nasal cannula. General description is an elderly male up in the bed in no distress. RESPIRATORY SYSTEM: Unlabored breathing. Decreased intensity of breath sounds. No wheeze. HEART: S1, S2. Regular rate and rhythm. ABDOMEN: Soft. No tenderness. LABS: Hemoglobin 12.1, white count 8.0, BUN of 29, creatinine 1.25. DIAGNOSTIC IMPRESSION AND PLAN: 1. Patient admitted to hospital with sepsis. Source is likely pneumonia. Patient did show overall improvement. Sputum has been negative for any resistant pathogen. Currently on oral Augmentin. That will continue for about a week to finish a course of therapy. 2. Patient did have a group B not enterococcus bacteremia. Source questionably abdominal. He will benefit from a colonoscopy in the outpatient setting. CT of abdomen and pelvis during this admission was negative. MMODL / IJN: [id number] /
[2017-08-29 16:22] VITALS: BP 138/78; PULSE 69
[2017-08-29 16:45] LABS: Glucose,Whole Blood 97 mg/dL (75-99)
--- NOTE | 2017-08-29 20:08 | P.PN ---
Subjective Progress Note Date: 08/29/17 This patient is a 66-year-old male who was admitted to Hospital with symptoms of altered mental status and fever. He has a history of underlying seizure disorder for which he has been taking Trileptal. He was having increasing symptoms of tremor and questionable seizure activity yesterday on examination. We have recommended a EEG test to be completed today for further evaluation. His Trileptal level is still pending from the laboratory. He was 6. In seeing severe tremulousness with a high-grade fever at home 103F. He denied any episode of loss of consciousness with these episodes of tremulousness. He underwent a computed tomography scan of the chest in July 2017 which revealed mediastinal adenopathy. He is being evaluated for this by pulmonary medicine and was recommended to have a PET scan done. He did undergo a computed tomography scan of the brain yesterday on admission which was normal with no acute process identified. At this time we would recommend for him to complete his EEG which will be reviewed. He is afebrile today and will continue on current antibiotics. Patient is doing much better today in terms of his alertness and able to follow simple commands. Patient was seen by infectious disease and is being treated for suspicion of pneumonia. Sputum culture revealed gram-positive bacteremia. Patient has been placed on vancomycin with close monitoring of his kidney function. Zosyn is to be continued at this time as well. Overall the patient is showing improvement in his mental status. He has had no further tremors suggesting his initial presentation was a febrile illness producing the tremulousness that was noted yesterday on initial evaluation. Patient underwent a routine EEG today which was reviewed and fails to reveal any evidence for epileptiform discharges. Patient is being evaluated for left lung pneumonia and masslike consolidation and mediastinal lymphadenopathy. Pulmonary medicine has seen the patient and malignancy cannot be completely excluded. Patient has had no witnessed seizure activity since admission to the hospital. His Trileptal level was completed on 08/23/2017 and it does come back therapeutic at 23.3. Patient is to continue on his current dose of Trileptal. As noted his EEG failed to reveal any focal epileptiform discharges. Patient was evaluated for possible inpatient rehab placement by Dr. Coyne. Infectious disease continues to follow the patient closely. He has positive blood cultures for group D enterococcus. He is being considered for possible colonoscopy procedure as an outpatient. Patient's breathing has shown slight improvement today. We will continue to monitor his progress closely during this admission. The patient is being considered for discharge home later today. Objective - Vital Signs Vital signs: Vital Signs Temp 97.1 F L 08/29/17 16:00 Pulse 69 08/29/17 16:00 Resp 20 08/29/17 16:00 BP 138/78 08/29/17 16:00 Pulse Ox 95 08/29/17 16:00 Intake & Output 08/28/17 08/29/17 08/29/17 18:59 06:59 18:59 Intake Total 600 940 Output Total 100 Balance 600 -100 940 Weight 109.1 kg 109.1 kg Intake: IV 100 ferric gluconate 100 Oral 600 840 Output: Urine 100 Other: Voiding Method Toilet Toilet Urinal Urinal # Voids 1 1 1 # Bowel Movements 1 - Exam Physical examination: PHYSICAL EXAMINATION: Patient is resting comfortably in bed. VITAL SIGNS: Blood pressure is [138/78]. Heart rate is [69]. Respiration is [18] . Temperature is [97.1]. HEENT: Head is atraumatic, neck is supple, there were no carotid bruits. CHEST: Lungs are clear to auscultation and percussion. CARDIAC: S1, S2 normal rate and rhythm. There is no murmur. ABDOMEN: Soft and nontender. Bowel sounds are present. EXTREMITIES: There is no pedal edema. Peripheral pulses are present. Neurological examination: Patient's neurological examination is unchanged from yesterday. Patient is more awake today. He is following simple commands. He has no evidence of any body tremors or tremulousness on examination today. His neurological examination is nonfocal. - Labs CBC & Chem 7: 08/29/17 05:40 08/29/17 05:40 Labs: Abnormal Lab Results - Last 24 Hours (Table) 08/28/17 08/29/17 08/29/17 Range/Units 21:04 05:40 05:40 Hgb 12.1 L (13.0-17.5) gm/dL Hct 35.7 L (39.0-53.0) % Lymphocytes # 0.6 L (1.0-4.8) k/uL BUN 29 H (9-20) mg/dL Glucose 101 H (74-99) mg/dL POC Glucose (mg/dL) 246 H (75-99) mg/dL ALT 91 H (21-72) U/L Total Protein 5.9 L (6.3-8.2) g/dL Albumin 3.4 L (3.5-5.0) g/dL Microbiology - Last 24 Hours (Table) 08/23/17 15:36 Blood Culture - Final Blood No Growth after 144 hours 08/26/17 19:08 Gram Stain - Final Sputum Sputum Culture - Final Assessment and Plan (1) Fever Status: Acute Code(s): R50.9 - FEVER, UNSPECIFIED SNOMED Code(s): 035097881 (2) Sepsis Status: Acute Code(s): A41.9 - SEPSIS, UNSPECIFIED ORGANISM SNOMED Code(s): 34478287 (3) Seizure Status: Acute Code(s): R56.9 - UNSPECIFIED CONVULSIONS SNOMED Code(s): 83601414 (4) CAD (coronary artery disease) Status: Chronic Code(s): I25.10 - ATHSCL HEART DISEASE OF [place] CORONARY ARTERY W/O ANG PCTRS SNOMED Code(s): 91715503 Plan: This patient is a 66-year-old male who is being evaluated for pneumonia and bacteremia. Patient has positive blood cultures for group D enterococcus. Infectious disease is monitoring his condition very closely. Patient has a known history of underlying seizure disorder and is currently on Trileptal. Trileptal level is therapeutic. He has had no further episodes of tremors or seizure-like activity. His routine EEG failed to reveal any seizure focus. Patient is being considered for possible inpatient rehab versus ECF placement. We will await further recommendations from Dr. Coyne. The patient is being considered for discharge later today. Neurological exam remains unchanged from yesterday. His overall prognosis at this time remains guarded.
--- NOTE | 2017-08-29 21:57 | DS ---
DISCHARGE SUMMARY FINAL DIAGNOSES: 1. Multilobar pneumonia with bibasilar and left perihilar areas with acute sepsis with streptococcus group D, not enterococcus bacteremia, and sepsis. 2. Spastic and twitching movement of the right upper extremity, improved. 3. Mediastinal and hilar lymphadenopathy on the CT scan. 4. Diabetes mellitus, type 2. 5. History of cerebrovascular accident in 2016. 6. History of coronary artery disease and stent placement. 7. Hypertension. 8. Hyperlipidemia. 9. Chronic kidney disease, stage III. 10.History of prostate cancer. 11.History of nicotine dependence. 12.Obesity with body mass index of 36.7. 13.Metabolic encephalopathy secondary to sepsis and change in mental status, improving. DISCHARGE DISPOSITION: The patient will be discharged in stable condition with guarded prognosis. Total time taken 35 minutes. Discharge cleared by multiple consultants. I recommend close followup with Pulmonary as well as Dr. Gold in the outpatient setting. HISTORY OF PRESENT ILLNESS: This 66-year-old gentleman with a past medical history of multiple medical problems was admitted with multilobar pneumonia, treated with antibiotics and bronchodilators. Pulmonary saw the patient. Patient improved significantly. Patient also had mediastinal and hilar lymphadenopathy. Dr. Gaxiola recommended outpatient followup with probably a repeat CT scan once the patient is improved. On exam, vitals are stable. CARDIOVASCULAR SYSTEM: S1, S2 muffled. RESPIRATORY SYSTEM: Diffuse rhonchi. ABDOMEN: Soft. NERVOUS SYSTEM: No focal deficit. DISCHARGE ADVICE AND MEDICATIONS: 1. Diet is cardiac. 2. Activity limited until followup. 3. Follow up with Dr. Gold in 2 to 3 days. 4. Follow up with Dr. Gaxiola as advised. 5. Follow up with Dr. Goldsmith as advised. 6. Home care is also being arranged. 7. Albuterol inhaler 2 puffs q.4 p.r.n. 8. Augmentin 875 mg b.i.d. p.o. b.i.d. for 1 week. 9. Aspirin 81 mg p.o. daily. 10.Lipitor 80 mg at bedtime. 11.Flexeril 10 mg at bedtime p.r.n. 12.Aricept 5 mg at bedtime. 13.Vitamin D2 50,000 p.o. Saturday. 14.Gabapentin 800 mg p.o. b.i.d. 15.Mucinex 600 mg p.o. b.i.d. 16.[place] 7.5 t.i.d. p.r.n. 17.Insulin pump. 18.Imdur ER 30 mg p.o. daily. 19.Cozaar 50 mg p.o. daily. 20.Antivert 25 mg t.i.d. p.r.n. 21.Namenda 10 mg b.i.d. p.r.n. 22.Lopressor 25 mg p.o. daily. 23.Nitrostat 0.4 sublingually p.r.n. 24.[place]-3 fatty acids 1 gram p.o. b.i.d. 25.Trileptal 300 mg p.o. b.i.d. 26.Protonix 40 mg b.i.d. 27.Effient 10 mg p.o. daily. 28.Prednisone taper: 40 mg daily for 3 days; 30 mg daily for 3 days; 20 mg daily for 3 days; 10 mg daily for 3 days; and then discontinue. 29.Mysoline 150 mg at bedtime. 30.Requip 0.25 mg at bedtime. 31.Requip 0.5 mg each morning. Once again, the patient will be discharged in stable condition with guarded prognosis. MMODL / IJN: [id number] /
== END 2017-08-29 18:41 | disposition home health service (06) | DRG 871 ==
LOC: EC 14:30 → 6SEL 15:33
PROVIDERS: ADMIT Family Medicine; ATTEND Family Medicine
DX: A41.81 Sepsis due to Enterococcus (principal); G93.41 Metabolic encephalopathy; E11.22 Type 2 diabetes mellitus with diabetic chronic kidney disease; J18.9 Pneumonia, unspecified organism; E87.2 Acidosis; E11.42 Type 2 diabetes mellitus with diabetic polyneuropathy; N18.3 Chronic kidney disease, stage 3 (moderate); I69.351 Hemiplegia and hemiparesis following cerebral infarction affecting right dominant side; E66.9 Obesity, unspecified; E78.5 Hyperlipidemia, unspecified; F41.9 Anxiety disorder, unspecified; G40.909 Epilepsy, unspecified, not intractable, without status epilepticus; I12.9 Hypertensive chronic kidney disease with stage 1 through stage 4 chronic kidney disease, or unspecified chronic kidney disease; I25.10 Atherosclerotic heart disease of native coronary artery without angina pectoris; I25.2 Old myocardial infarction; J98.01 Acute bronchospasm; R65.20 Severe sepsis without septic shock; Z79.4 Long term (current) use of insulin; Z79.82 Long term (current) use of aspirin; Z79.899 Other long term (current) drug therapy; Z80.52 Family history of malignant neoplasm of bladder; Z85.46 Personal history of malignant neoplasm of prostate; Z87.442 Personal history of urinary calculi; Z87.891 Personal history of nicotine dependence; Z92.3 Personal history of irradiation; Z95.5 Presence of coronary angioplasty implant and graft; Z96.1 Presence of intraocular lens; Z96.41 Presence of insulin pump (external) (internal); R59.0 Localized enlarged lymph nodes
CPT/HCPCS: 36415; 51701; 70450; 71045; 71046; 74176; 80048; 80053; 80183; 81003; 83036; 83605; 84484; 85025; 85610; 85730; 87040; 87070; 87077; 87086; 87186; 87205; 87502; 93005; 93306; 94640; 94760; 95819; 96365; 96366; 96375; 99291

== ENCOUNTER 2017-09-09 10:13 | Emergency (ER) | payer MEDICARE, OTHER ==
[2017-09-09] MEDS ORDERED: SODIUM CHLORIDE 0.9% 1,000 ML IV ONE (10:28)
--- NOTE | 2017-09-09 10:32 | ED ---
Altered Mental Status HPI - General Chief Complaint: Altered Mental Status Stated Complaint: Poss Seizure, Poss Altered Time Seen by Provider: 09/09/17 10:18 Source: patient, EMS Mode of arrival: EMS Limitations: no limitations - History of Present Illness Initial Comments: This 66-year-old white male presents after he apparently had a seizure. This apparently was witnessed per at home. He was brought in via EMS. There apparently was a strong smell of gas at home. He had altered mental status which seemed to improve upon EMS taking him to the ER. He does not remember what happened. He feels fine at this time. She does have a history of seizures. He apparently takes Trileptal and his dose was increased recently but the did not give him the increased dose. There has been no fevers or chills. He was just discharged from the hospital approximately 10-11 days ago after being admitted for pneumonia. He states that his breathing has improved at this time. He denies any current shortness of breath or chest pain. There' s been no fevers or chills. He denies any other complaints or modifying factors. The later does show up and states that she had witnessed the seizure at home. He apparently was unconscious and his eyes rolled back but he did not have any significant twitching. She relates that he was on Trileptal 300 mg twice a day and this was increased to 600 mg twice a day. She felt as though he was experiencing some side effects of the medication including some left leg weakness and Dr. Gold decreased his Trileptal back to 300 twice a day. She is to follow-up with the neurologist this week for further dosing recommendations. She also relates that he is to follow-up with his public relations counselor tomorrow. - Related Data Home Medications Medication Instructions Recorded Confirmed Aspirin 81 mg PO DAILY 01/12/15 09/09/17 Winthrop-3 Acid Ethyl Esters [Lovaza] 1 gm PO BID 01/12/15 09/09/17 Gabapentin 800 mg PO BID 04/18/16 09/09/17 HYDROcodone/APAP 7.5-325MG [Jewett 1 tab PO TID PRN 03/14/17 09/09/17 7.5-325] Primidone [Mysoline] 150 mg PO HS 03/14/17 09/09/17 Atorvastatin Calcium [Lipitor] 80 mg PO HS 07/30/17 09/09/17 Cyclobenzaprine [Flexeril] 10 mg PO HS PRN 07/30/17 09/09/17 Donepezil [Aricept] 5 mg PO HS 07/30/17 09/09/17 Ergocalciferol [Vitamin D2 50,000 unit PO GUERRA 07/30/17 09/09/17 (DRISDOL)] INSULIN LISPRO (For Pump) [humaLOG See Protocol SQ-PUMP CONTINUOUS 07/30/17 (For Pump)] Meclizine [Antivert] 25 mg PO TID PRN 07/30/17 09/09/17 Memantine HCl [Namenda] 10 mg PO BID 07/30/17 09/09/17 rOPINIRole HCL [Requip] 0.25 mg PO HS 07/30/17 09/09/17 rOPINIRole HCL [Requip] 0.5 mg PO QAM 07/30/17 09/09/17 Albuterol Sulfate [Proair Hfa] 2 puff INHALATION RT-QID 09/09/17 09/09/17 Previous Rx's Medication Instructions Recorded Isosorbide Mononitrate ER [Imdur] 30 mg PO DAILY #30 tab.er.24h 01/17/15 Losartan [Cozaar] 50 mg PO DAILY #30 tab 01/17/15 Metoprolol Tartrate [Lopressor] 25 mg PO DAILY #30 tab 01/17/15 Nitroglycerin Sl Tabs [Nitrostat] 0.4 mg SUBLINGUAL Q5M PRN #25 tab 01/17/15 Prasugrel [Effient] 10 mg PO DAILY #30 tab 01/17/15 OXcarbazepine [Trileptal] 300 mg PO BID #60 tab 08/10/17 Pantoprazole [Protonix] 40 mg PO AC-BRKFST #30 tablet.dr 08/29/17 guaiFENesin [Mucinex] 600 mg PO Q12HR PRN tablet.er 08/29/17 Allergies Allergy/AdvReac Type Severity Reaction Status Date / Time No Known Allergies Allergy Verified 09/09/17 11:21 Review of Systems ROS Statement: Those systems with pertinent positive or pertinent negative responses have been documented in the HPI. ROS Other: All systems not noted in ROS Statement are negative. 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 Past Anesthesia/Blood Transfusion Reactions: Motion Sickness Additional Past Anesthesia/Blood Transfusion Reaction / Comment(s): CLAUSTERPHOBIC Date of Last Stent Placement:: 2014 Past Psychological History: No Psychological Hx Reported Smoking Status: Former smoker Past Alcohol Use History: None Reported Past Drug Use History: None Reported - Past Family History Father Family Medical History: Cancer Additional Family Medical History / Comment(s): FATHER HAD BLADDER CANCER AND OF THIS IN HIS 40'S Mother Family Medical History: Cancer, Dementia Additional Family Medical History / Comment(s): UTERINE CANCER. Mother of dementia at the age of 89yrs. General Exam - General Exam Comments Initial Comments: GENERAL: The patient is well nourished and well hydrated. VITAL SIGNS: Heart rate, blood pressure, respiratory rate reviewed as recorded in nurse's notes. EYES: Pupils are round and reactive. Extraocular movements are intact. No conjunctival / lid redness or swelling. ENT: No external evidence of injury, swelling, or ecchymosis. Airway is patent. Throat is clear. NECK: Nontender. No swelling or evidence of injury. No subcutaneous emphysema. Trachea is midline. No thyroid mass. HEART: Regular rate and rhythm. Good peripheral pulses. LUNGS/CHEST: Breath sounds clear and equal bilaterally. No rales, rhonchi, or wheezes. No ecchymosis, subcutaneous emphysema, or tenderness. ABDOMEN: Abdomen soft without tenderness. No palpable masses or organomegaly. No peritoneal signs. No abdominal wall swelling or ecchymosis. EXTREMITIES: No extremity tenderness. Normal muscle tone and function. No thoracolumbar tenderness. NEUROLOGIC: Sensation is grossly intact. Cranial nerve exam reveals face is symmetrical, tongue is midline, speech is clear. SKIN: No abrasions or ecchymosis is noted. No induration or masses noted. PSYCHIATRIC: Alert and oriented. Appropriate behavior and judgment. Limitations: no limitations Course Vital Signs 09/09/17 10:17 Temperature 97.0 F L Pulse Rate 79 Respiratory 16 Rate Blood Pressure 111/55 O2 Sat by Pulse 94 L Oximetry Medical Decision Making - Medical Decision Making The patient was seen and examined. All diagnostics were reviewed. EKG shows a normal sinus rhythm at a rate of 73. There is some minimal T-wave inversions in 3 and aVF. There is no ST elevation. The [place] intervals 184, QRS duration is 84, and the QTc interval is 409. An IV is established and the patient is mildly hydrated. The patient had a chest x-ray which did show some evidence of some left hilar mass versus lymphadenopathy. Old records were reviewed and it appears that this is known per previous computed tomography scan on recent hospital admission. There is no evidence of current pneumonia. His lungs are clear on recheck. There is no current difficulty in breathing or signs of respiratory compromise. The laboratories reviewed and does show a glucose elevated at 218 with a mild anemia and mild renal insufficiency. He is feeling well on recheck and feels well enough to be discharged home. It is not felt as though he would require admission at this time and subsequently discharge. It is felt as though he should have close follow-up with his neurologist in public relations counselor and primary care physician and this is discussed with patient and . - Lab Data Result diagrams: 09/09/17 11:01 09/09/17 10:50 Lab Results 09/09/17 09/09/17 09/09/17 Range/Units 10:50 10:50 10:50 WBC (3.8-10.6) k/uL RBC (4.30-5.90) m/uL Hgb (13.0-17.5) gm/dL Hct (39.0-53.0) % MCV (80.0-100.0) fL MCH (25.0-35.0) pg MCHC (31.0-37.0) g/dL RDW (11.5-15.5) % Plt Count (150-450) k/uL Neutrophils % % Lymphocytes % % Monocytes % % Eosinophils % % Basophils % % Neutrophils # (1.3-7.7) k/uL Lymphocytes # (1.0-4.8) k/uL Monocytes # (0-1.0) k/uL Eosinophils # (0-0.7) k/uL Basophils # (0-0.2) k/uL PT 9.7 (9.0-12.0) sec INR 1.0 (<1.2) APTT 19.0 L (22.0-30.0) sec Carbon Monoxide, Quant (<10.0) % Sodium 142 (137-145) mmol/L Potassium 4.4 (3.5-5.1) mmol/L Chloride 106 (98-107) mmol/L Carbon Dioxide 24 (22-30) mmol/L Anion Gap 12 mmol/L BUN 23 H (9-20) mg/dL Creatinine 1.30 H (0.66-1.25) mg/dL Est GFR (CKD-EPI)AfAm 66 (>60 ml/min/1.73 sqM) Est GFR (CKD-EPI)NonAf 57 (>60 ml/min/1.73 sqM) Glucose 218 H (74-99) mg/dL Calcium 9.3 (8.4-10.2) mg/dL Total Bilirubin 0.7 (0.2-1.3) mg/dL AST 19 (17-59) U/L ALT 47 (21-72) U/L Alkaline Phosphatase 109 (38-126) U/L Total Creatine Kinase 24 L (55-170) U/L CK-MB (CK-2) 0.6 (0.0-2.4) ng/mL CK-MB (CK-2) Rel Index 2.5 Troponin I 0.021 (0.000-0.034) ng/mL Total Protein 5.3 L (6.3-8.2) g/dL Albumin 3.1 L (3.5-5.0) g/dL 09/09/17 09/09/17 Range/Units 10:50 11:01 WBC 8.1 (3.8-10.6) k/uL RBC 4.48 (4.30-5.90) m/uL Hgb 12.2 L (13.0-17.5) gm/dL Hct 38.7 L (39.0-53.0) % MCV 86.3 (80.0-100.0) fL MCH 27.3 (25.0-35.0) pg MCHC 31.6 (31.0-37.0) g/dL RDW 15.5 (11.5-15.5) % Plt Count 207 (150-450) k/uL Neutrophils % 89 % Lymphocytes % 5 % Monocytes % 5 % Eosinophils % 0 % Basophils % 0 % Neutrophils # 7.2 (1.3-7.7) k/uL Lymphocytes # 0.4 L (1.0-4.8) k/uL Monocytes # 0.4 (0-1.0) k/uL Eosinophils # 0.0 (0-0.7) k/uL Basophils # 0.0 (0-0.2) k/uL PT (9.0-12.0) sec INR (<1.2) APTT (22.0-30.0) sec Carbon Monoxide, Quant 3.5 (<10.0) % Sodium (137-145) mmol/L Potassium (3.5-5.1) mmol/L Chloride (98-107) mmol/L Carbon Dioxide (22-30) mmol/L Anion Gap mmol/L BUN (9-20) mg/dL Creatinine (0.66-1.25) mg/dL Est GFR (CKD-EPI)AfAm (>60 ml/min/1.73 sqM) Est GFR (CKD-EPI)NonAf (>60 ml/min/1.73 sqM) Glucose (74-99) mg/dL Calcium (8.4-10.2) mg/dL Total Bilirubin (0.2-1.3) mg/dL AST (17-59) U/L ALT (21-72) U/L Alkaline Phosphatase (38-126) U/L Total Creatine Kinase (55-170) U/L CK-MB (CK-2) (0.0-2.4) ng/mL CK-MB (CK-2) Rel Index Troponin I (0.000-0.034) ng/mL Total Protein (6.3-8.2) g/dL Albumin (3.5-5.0) g/dL Disposition Clinical Impression: Altered mental status, Seizure, Anemia, Renal insufficiency, Hyperglycemia, Lymphadenopathy Disposition: HOME SELF-CARE Condition: Good Instructions: Recurrent Seizures in Adults (ED) Additional Instructions: Please follow-up with your public relations counselor and your neurologist as soon as possible. Referrals: Cedric Gold DO [Primary Care Provider] - 1-2 days Time of Disposition: 12:43
[2017-09-09 11:22] LABS: Prothrombin Time 9.7 sec (9.0-12.0)
[2017-09-09 11:24] LABS: Albumin 3.1 g/dL (3.5-5.0); Calcium 9.3 mg/dL (8.4-10.2); Potassium 4.4 mmol/L (3.5-5.1); Total Bilirubin 0.7 mg/dL (0.2-1.3); Total Protein 5.3 g/dL (6.3-8.2)
[2017-09-09 11:25] LABS: Basophils % (A) 0 %; Eosinophils % (A) 0 %; HCT 38.7 % (39.0-53.0); HGB 12.2 gm/dL (13.0-17.5); Lymphocytes # (A) 0.4 k/uL (1.0-4.8); Lymphocytes % (A) 5 %; MCH 27.3 pg (25.0-35.0); MCHC 31.6 g/dL (31.0-37.0); MCV 86.3 fL (80.0-100.0); Mean Platelet Volume 7.5; Monocytes # (A) 0.4 k/uL (0-1.0); Monocytes % (A) 5 %; Neutrophils # (A) 7.2 k/uL (1.3-7.7); Neutrophils % (A) 89 %; Platelet Count 207 k/uL (150-450); RBC 4.48 m/uL (4.30-5.90); RDW 15.5 % (11.5-15.5); WBC 8.1 k/uL (3.8-10.6)
--- NOTE | 2017-09-09 11:47 | XR ---
EXAMINATION TYPE: XR chest 2V DATE OF EXAM: 09/09/2017 COMPARISON: Chest x-ray August 25, 2017 and older studies. Chest CT August 01, 2017. HISTORY: Altered mental status and weakness. TECHNIQUE: Frontal and lateral views of the chest are obtained. FINDINGS: There is persistent right medial basilar opacity. There is stable left hilar opacity. No n ew focal airspace opacity is evident bilaterally. No large pleural effusion or pneumothorax is seen b ilaterally. The cardiac silhouette size remains within normal limits. The osseous structures are in tact. IMPRESSION: Right medial basilar opacity extending to hilum favors adenopathy with adjacent atelectas is. Left hilar opacity correlates to adenopathy and posterior mid lung mass. Underlying neoplasm susp ected. Consider bronchoscopy or PET/CT to further evaluate.
[2017-09-09 11:53] LABS: Creatine Kinase MB 0.6 ng/mL (0.0-2.4); Troponin I 0.021 ng/mL (0.000-0.034)
[2017-09-09 13:44] VITALS: BP 132/83; PULSE 69; RESP 18; TEMP 97.8
== END 2017-09-09 13:44 | disposition home or self-care (01) ==
LOC: EC 10:13
DX: R41.82 Altered mental status, unspecified (principal); G40.909 Epilepsy, unspecified, not intractable, without status epilepticus; D64.9 Anemia, unspecified; R59.1 Generalized enlarged lymph nodes; I12.9 Hypertensive chronic kidney disease with stage 1 through stage 4 chronic kidney disease, or unspecified chronic kidney disease; N18.9 Chronic kidney disease, unspecified; E11.22 Type 2 diabetes mellitus with diabetic chronic kidney disease; I25.2 Old myocardial infarction; E11.65 Type 2 diabetes mellitus with hyperglycemia; E11.40 Type 2 diabetes mellitus with diabetic neuropathy, unspecified; I25.10 Atherosclerotic heart disease of native coronary artery without angina pectoris; E78.5 Hyperlipidemia, unspecified; M19.90 Unspecified osteoarthritis, unspecified site; Z86.73 Personal history of transient ischemic attack (TIA), and cerebral infarction without residual deficits; Z95.5 Presence of coronary angioplasty implant and graft; Z96.41 Presence of insulin pump (external) (internal); Z79.4 Long term (current) use of insulin; Z79.82 Long term (current) use of aspirin; Z79.899 Other long term (current) drug therapy; Z87.891 Personal history of nicotine dependence
CPT/HCPCS: 36415; 71046; 80053; 82375; 82550; 82553; 84484; 85025; 85610; 85730; 87040; 93005; 99285

== ENCOUNTER → 2017-09-18 | Outpatient (CLI) | payer MEDICARE, OTHER | END | disposition home or self-care (01) | LOC: LABWHC1 09:30 | PROVIDERS: ATTEND Psychiatry & Neurology Pain Medicine | DX: G40.909 Epilepsy, unspecified, not intractable, without status epilepticus (principal) | CPT/HCPCS: 36415; 80183 ==

== ENCOUNTER → 2017-10-22 | Outpatient (CLI) | payer MEDICARE, OTHER ==
--- NOTE | 2017-10-23 07:46 | CT ---
EXAMINATION TYPE: CT chest w con DATE OF EXAM: 10/22/2017 COMPARISON: Chest x-ray October 17, 2017. CT chest October 01, 2017. Older CT August 01, 2017. HISTORY: Recent bilateral pneumonia. CT DLP: 788 mGycm Automated exposure control for dose reduction was used. CONTRAST: CT scan of the chest is performed with IV Contrast, patient injected with 80 mL of Isovue M300. FINDINGS: LUNGS: There is continued but diminishing prominence masslike nodular and linear consolidation at sup erior aspect left lower lobe which is slightly more nodular in the superior aspect axial image 23, th is continues to diminish in size from older CTs. Maximal measurements are 15 x 6 mm on current study axial image 23. There are additional areas of linear and nodular scarring and/or atelectasis in both lower lungs redemonstrated, for reference anterolateral right lung axial image 35 -- 9 x 6 mm area is not significantly changed from last 2 studies. For reference 7 x 5 mm nodular of density just superi or to this axial image 30 is not significant change from prior 2 studies. While findings are favored postinflammatory, consider PET/CT to exclude malignancy. No new suspicious nodules or masses are present. Improving right basilar consolidation is also noted. No pleural effusion or pneumothorax is present bilaterally. Mild central peribronchial wall thickeni ng is noted. MEDIASTINUM: There are persistent abnormal thoracic lymph nodes including bilateral hilar and mediast inal lymph nodes. Multiple enlarged lymph nodes are present, for reference a prevascular lymph node m easures 1.3 x 1.2 cm axial image 22. For reference a right paratracheal lymph node measures 1.6 x 1.3 cm axial image 12. No cardiomegaly is seen. No pericardial effusion is seen. Moderate to severe c oronary artery calcification is present which is noted marker for coronary artery disease. OTHER: Small degree of bilateral gynecomastia is redemonstrated. Dependent small gallstones and gallbladder are again seen. There is splenule in splenic hilum. There is moderate multilevel spurring in the thoracic spine. IMPRESSION: Improving but not resolved bilateral lower lung consolidation with some nodular componen ts that have been present without significant change from August 01, 2017 CT. Persistent thoracic a denopathy. I do favor postinflammatory etiology however given abnormal lymph nodes with persistent no dularity, would advise PET/CT to exclude malignancy.
== END | disposition home or self-care (01) ==
LOC: RADCTMAIN 17:55
PROVIDERS: ATTEND Internal Medicine Critical Care Medicine
DX: J18.1 Lobar pneumonia, unspecified organism (principal)
CPT/HCPCS: 82565; 84520; 71260; 36415 ×2; Q9967

== ENCOUNTER → 2017-10-23 | Outpatient (CLI) | payer MEDICARE, OTHER ==
[2017-10-23 14:49] LABS: HCT 40.1 % (39.0-53.0); HGB 13.5 gm/dL (13.0-17.5); MCH 28.5 pg (25.0-35.0); MCHC 33.5 g/dL (31.0-37.0); Mean Platelet Volume 7.5; Platelet Count 211 k/uL (150-450); RBC 4.72 m/uL (4.30-5.90); RDW 15.6 % (11.5-15.5); WBC 5.9 k/uL (3.8-10.6)
[2017-10-23 14:54] LABS: Appearance,Urine Clear (Clear); Bilirubin,Urine Negative (Negative); Blood,Urine Negative (Negative); Color,Urine Yellow; Glucose,Urine (UA) Negative (Negative); Ketones,Urine Negative (Negative); Leukocyte Esterase,Urine Negative (Negative); Nitrite,Urine Negative (Negative); PH, Urine 5.5 (5.0-8.0); Protein,Urine Trace (Negative); Specific Gravity,Urine 1.025 (1.001-1.035)
[2017-10-23 15:09] LABS: Calcium 9.6 mg/dL (8.4-10.2); Magnesium 1.6 mg/dL (1.6-2.3); Phosphorus 4.5 mg/dL (2.5-4.5); Potassium 4.9 mmol/L (3.5-5.1); Uric Acid 4.5 mg/dL (3.5-8.5)
[2017-10-23 19:12] LABS: Parathyroid Hormone Intact 30.3 pg/mL (14.0-72.0)
[2017-10-23 19:25] LABS: Iron Saturation 23.29 (15.00-50.00)
[2017-10-23 19:35] LABS: Vitamin D 25 Hydroxy 36.1 ng/mL (30.0-100.0)
[2017-10-23 22:14] LABS: Hemoglobin A1C 7.7 % (4.0-6.0)
== END | disposition home or self-care (01) ==
LOC: LABWHC1 14:23
PROVIDERS: ATTEND Nurse Practitioner Family
DX: E11.22 Type 2 diabetes mellitus with diabetic chronic kidney disease (principal); N18.3 Chronic kidney disease, stage 3 (moderate); D64.9 Anemia, unspecified; M10.9 Gout, unspecified
CPT/HCPCS: 36415; 80048; 81003; 82043; 82306; 82570; 82728; 83036; 83540; 83550; 83735; 83970; 84100; 84550; 85027

== ENCOUNTER → 2017-11-06 | Outpatient (CLI) | payer MEDICARE, OTHER ==
--- NOTE | 2017-11-06 09:26 | US ---
EXAMINATION TYPE: US kidneys/renal and bladder DATE OF EXAM: 11/06/2017 COMPARISON: 03/05/2017 CLINICAL HISTORY: N18.3 Chronic kidney stage 3. EXAM MEASUREMENTS: Right Kidney: 12.1 x 5.3 x 6.1 cm Left Kidney: 11.7 x 5.4 x 5.8 cm Post Void Residual Volume: 29.1 mL Pre void volume: 37.8 Right Kidney: No hydronephrosis or masses seen Left Kidney: No hydronephrosis or masses seen Bladder: mildly distended, patient very uncomfortable Bilateral Jets seen: Yes Normal Post Void Residual: No There is no evidence for hydronephrosis at this point in time. No nephrolithiasis is seen. No anastasia s are identified. Bilateral ureteral jets are seen. IMPRESSION: No significant abnormality seen. Urinary bladder is poorly distended.
[2017-11-06 09:53] LABS: HGB 12.8 gm/dL (13.0-17.5); MCHC 34.7 g/dL (31.0-37.0); MCV 83.5 fL (80.0-100.0); Mean Platelet Volume 6.7; Platelet Count 185 k/uL (150-450); Poikilocytosis Slight; RBC 4.42 m/uL (4.30-5.90); WBC 4.6 k/uL (3.8-10.6)
[2017-11-06 10:01] LABS: Appearance,Urine Clear (Clear); Bilirubin,Urine Negative (Negative); Blood,Urine Negative (Negative); Color,Urine Light Yellow; Glucose,Urine (UA) 3+ (Negative); Ketones,Urine Negative (Negative); Leukocyte Esterase,Urine Negative (Negative); Nitrite,Urine Negative (Negative); PH, Urine 5.5 (5.0-8.0); Protein,Urine Negative (Negative); Specific Gravity,Urine 1.008 (1.001-1.035); Urobilinogen,Urine <2.0 mg/dL (<2.0)
[2017-11-06 10:26] LABS: Calcium 9.3 mg/dL (8.4-10.2); Magnesium 1.5 mg/dL (1.6-2.3); Phosphorus 3.5 mg/dL (2.5-4.5); Potassium 4.2 mmol/L (3.5-5.1); Uric Acid 5.9 mg/dL (3.5-8.5)
[2017-11-06 16:15] LABS: Iron Saturation 32.98 (15.00-50.00)
== END | disposition home or self-care (01) ==
LOC: RADUSWWP 08:54
PROVIDERS: ATTEND Internal Medicine Nephrology
DX: N18.3 Chronic kidney disease, stage 3 (moderate) (principal); N39.0 Urinary tract infection, site not specified; R80.9 Proteinuria, unspecified; M10.9 Gout, unspecified; D63.1 Anemia in chronic kidney disease
CPT/HCPCS: 36415; 76770; 80048; 81003; 82043; 82570; 82728; 83540; 83550; 83735; 84100; 84550; 85027

== ENCOUNTER → 2018-01-08 | Outpatient (CLI) | payer MEDICARE, OTHER ==
[2018-01-08 11:40] LABS: Albumin 3.8 g/dL (3.5-5.0); Calcium 9.4 mg/dL (8.4-10.2); Magnesium 1.7 mg/dL (1.6-2.3); Phosphorus 3.8 mg/dL (2.5-4.5); Potassium 4.6 mmol/L (3.5-5.1); Total Bilirubin 0.3 mg/dL (0.2-1.3); Total Protein 5.9 g/dL (6.3-8.2); Uric Acid 6.8 mg/dL (3.5-8.5)
[2018-01-08 12:18] LABS: HCT 38.9 % (39.0-53.0); HGB 13.1 gm/dL (13.0-17.5); MCH 28.6 pg (25.0-35.0); MCHC 33.6 g/dL (31.0-37.0); MCV 85.2 fL (80.0-100.0); Platelet Count 202 k/uL (150-450); Poikilocytosis Slight; RBC 4.57 m/uL (4.30-5.90); RDW 15.5 % (11.5-15.5); WBC 5.6 k/uL (3.8-10.6)
[2018-01-08 14:15] LABS: Appearance,Urine Clear (Clear); Bilirubin,Urine Negative (Negative); Blood,Urine Negative (Negative); Color,Urine Yellow; Glucose,Urine (UA) Negative (Negative); Ketones,Urine Negative (Negative); Leukocyte Esterase,Urine Negative (Negative); Nitrite,Urine Negative (Negative); PH, Urine 6.5 (5.0-8.0); Protein,Urine Trace (Negative); Specific Gravity,Urine 1.021 (1.001-1.035)
[2018-01-08 16:03] LABS: Iron Saturation 19.58 (15.00-50.00)
[2018-01-08 16:20] LABS: Vitamin D 25 Hydroxy 52.4 ng/mL (30.0-100.0)
[2018-01-08 16:30] LABS: Parathyroid Hormone Intact 48.2 pg/mL (14.0-72.0)
[2018-01-08 20:15] LABS: Hemoglobin A1C 6.6 % (4.0-6.0)
== END | disposition home or self-care (01) ==
LOC: LABWHC1 10:23
PROVIDERS: ATTEND Internal Medicine Endocrinology, Diabetes & Metabolism
DX: N39.0 Urinary tract infection, site not specified (principal); R80.9 Proteinuria, unspecified; M10.9 Gout, unspecified; D63.1 Anemia in chronic kidney disease; N18.3 Chronic kidney disease, stage 3 (moderate); E83.42 Hypomagnesemia; E11.65 Type 2 diabetes mellitus with hyperglycemia; E11.22 Type 2 diabetes mellitus with diabetic chronic kidney disease
CPT/HCPCS: 36415; 80053; 80061; 81003; 82043; 82306; 82570; 82728; 83036; 83540; 83550; 83735; 83970; 84100; 84550; 85027

== ENCOUNTER → 2018-01-24 | Outpatient (CLI) | payer MEDICARE, OTHER | END | disposition home or self-care (01) | LOC: LABWHC1 09:56 | PROVIDERS: ATTEND Internal Medicine Endocrinology, Diabetes & Metabolism | DX: E11.65 Type 2 diabetes mellitus with hyperglycemia (principal) | CPT/HCPCS: 36415; 82947; 84681 ==

== ENCOUNTER 2018-02-20 13:31 | Emergency (ER) | payer MEDICARE, OTHER ==
[2018-02-20 13:40] LABS: Glucose,Whole Blood 76 mg/dL (75-99)
--- NOTE | 2018-02-20 13:43 | ED ---
General Adult HPI - General Chief complaint: Syncope Stated complaint: SYNCOPAL EPISODE Time Seen by Provider: 02/20/18 13:37 Source: patient, EMS, RN notes reviewed, old records reviewed Mode of arrival: EMS Limitations: no limitations - History of Present Illness Initial comments: This is a 67-year-old male the ER for evaluation. Patient does say for evaluation of syncope. Patient had syncopal event prior to arrival. Patient is diabetic and insulin therapy. Patient does admit to decreased appetite throughout the day, was sitting down to dinner tonight before he did pass out. Family denies any seizure-like activity, no trauma or injury from fall - Related Data Home Medications Medication Instructions Recorded Confirmed Aspirin 81 mg PO DAILY 01/12/15 02/20/18 Gabapentin 800 mg PO BID 04/18/16 02/20/18 HYDROcodone/APAP 7.5-325MG [[place] 1 tab PO DAILY PRN 03/14/17 02/20/18 7.5-325] Primidone [Mysoline] 150 mg PO HS 03/14/17 02/20/18 Atorvastatin Calcium [Lipitor] 80 mg PO HS 07/30/17 09/30/17 Cyclobenzaprine [Flexeril] 10 mg PO HS PRN 07/30/17 02/20/18 Donepezil [Aricept] 10 mg PO HS 07/30/17 02/20/18 Ergocalciferol [Vitamin D2 50,000 unit PO MO 07/30/17 02/20/18 (DRISDOL)] INSULIN LISPRO (For Pump) [humaLOG See Protocol SQ-PUMP CONTINUOUS 07/30/1712/02 (For Pump)] Meclizine [Antivert] 25 mg PO TID PRN 07/30/17 02/20/18 Memantine HCl [Namenda] 10 mg PO BID 07/30/17 02/20/18 rOPINIRole HCL [Requip] 0.25 mg PO TID 07/30/17 02/20/18 Escitalopram [Lexapro] 10 mg PO DAILY 02/20/18 02/20/18 Lactulose 10 gm PO DAILY PRN 02/20/18 02/20/18 Magnesium Oxide [Mag-Oxide] 400 mg PO DAILY 02/20/18 02/20/18 Torsemide [Demadex] 5 mg PO TUTHSA 02/20/18 02/20/18 Previous Rx's Medication Instructions Recorded Isosorbide Mononitrate ER [Imdur] 30 mg PO DAILY #30 tab.er.24h 01/17/15 Losartan [Cozaar] 50 mg PO DAILY #30 tab 01/17/15 Metoprolol Tartrate [Lopressor] 25 mg PO DAILY #30 tab 01/17/15 Nitroglycerin Sl Tabs [Nitrostat] 0.4 mg SUBLINGUAL Q5M PRN #25 tab 01/17/15 Prasugrel [Effient] 10 mg PO DAILY #30 tab 01/17/15 OXcarbazepine [Trileptal] 300 mg PO BID #60 tab 08/10/17 Allergies Allergy/AdvReac Type Severity Reaction Status Date / Time No Known Allergies Allergy Verified 02/20/18 13:55 Review of Systems ROS Statement: Those systems with pertinent positive or pertinent negative responses have been documented in the HPI. ROS Other: All systems not noted in ROS Statement are negative. 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 Past Anesthesia/Blood Transfusion Reactions: Motion Sickness Additional Past Anesthesia/Blood Transfusion Reaction / Comment(s): CLAUSTERPHOBIC Date of Last Stent Placement:: 2014 Past Psychological History: No Psychological Hx Reported Smoking Status: Former smoker Past Alcohol Use History: None Reported Past Drug Use History: None Reported - Past Family History Father Family Medical History: Cancer Additional Family Medical History / Comment(s): FATHER HAD BLADDER CANCER AND OF THIS IN HIS 40'S Mother Family Medical History: Cancer, Dementia Additional Family Medical History / Comment(s): UTERINE CANCER. Mother of dementia at the age of 89yrs. General Exam Limitations: no limitations General appearance: alert, in no apparent distress Head exam: Present: atraumatic, normocephalic, normal inspection Eye exam: Present: normal appearance, PERRL, EOMI. Absent: scleral icterus, conjunctival injection, periorbital swelling ENT exam: Present: normal exam, mucous membranes moist Neck exam: Present: normal inspection. Absent: tenderness, meningismus, lymphadenopathy Respiratory exam: Present: normal lung sounds bilaterally. Absent: respiratory distress, wheezes, rales, rhonchi, stridor Cardiovascular Exam: Present: regular rate, normal rhythm, normal heart sounds. Absent: systolic murmur, diastolic murmur, rubs, gallop, clicks GI/Abdominal exam: Present: soft, normal bowel sounds. Absent: distended, tenderness, guarding, rebound, rigid Extremities exam: Present: normal inspection, full ROM, normal capillary refill. Absent: tenderness, pedal edema, joint swelling, calf tenderness Back exam: Present: normal inspection Neurological exam: Present: alert, oriented X3, CN II-XII intact Psychiatric exam: Present: normal affect, normal mood Skin exam: Present: warm, dry, intact, normal color. Absent: rash Course Vital Signs 02/20/18 02/20/18 02/20/18 13:33 15:46 16:42 Temperature 97.0 F L 98.0 F Pulse Rate 63 51 L 53 L Respiratory 16 18 18 Rate Blood Pressure 102/60 105/59 119/65 O2 Sat by Pulse 100 96 98 Oximetry 02/20/18 17:19 Temperature 98 F Pulse Rate 56 L Respiratory 18 Rate Blood Pressure 124/58 O2 Sat by Pulse 98 Oximetry EKG Findings - EKG Comments: EKG Findings:: EKG shows sinus bradycardia rate 52, pO2 of 4, QRS 86, QTc 396 Medical Decision Making - Medical Decision Making 67 male having syncopal event at restaurant. Patient hypoglycemic event is on insulin pump. Patient received resuscitated with IV fluid, symptoms improved and resolved. Patient can be discharged home - Lab Data Result diagrams: 02/20/18 14:12 02/20/18 14:12 Lab Results 02/20/18 02/20/18 02/20/18 Range/Units 13:35 14:12 14:12 WBC 8.3 (3.8-10.6) k/uL RBC 4.80 (4.30-5.90) m/uL Hgb 13.6 (13.0-17.5) gm/dL Hct 40.4 (39.0-53.0) % MCV 84.2 (80.0-100.0) fL MCH 28.3 (25.0-35.0) pg MCHC 33.6 (31.0-37.0) g/dL RDW 15.2 (11.5-15.5) % Plt Count 218 (150-450) k/uL Neutrophils % 79 % Lymphocytes % 11 % Monocytes % 6 % Eosinophils % 2 % Basophils % 1 % Neutrophils # 6.6 (1.3-7.7) k/uL Lymphocytes # 0.9 L (1.0-4.8) k/uL Monocytes # 0.5 (0-1.0) k/uL Eosinophils # 0.2 (0-0.7) k/uL Basophils # 0.1 (0-0.2) k/uL PT (9.0-12.0) sec INR (<1.2) APTT (22.0-30.0) sec D-Dimer (<0.60) mg/L FEU Sodium (137-145) mmol/L Potassium (3.5-5.1) mmol/L Chloride (98-107) mmol/L Carbon Dioxide (22-30) mmol/L Anion Gap mmol/L BUN (9-20) mg/dL Creatinine (0.66-1.25) mg/dL Est GFR (CKD-EPI)AfAm (>60 ml/min/1.73 sqM) Est GFR (CKD-EPI)NonAf (>60 ml/min/1.73 sqM) Glucose (74-99) mg/dL POC Glucose (mg/dL) 76 (75-99) mg/dL POC Glu Lease Broker ID WaldoJocelin muñoz Calcium (8.4-10.2) mg/dL Magnesium (1.6-2.3) mg/dL Total Bilirubin (0.2-1.3) mg/dL AST (17-59) U/L ALT (21-72) U/L Alkaline Phosphatase (38-126) U/L Total Creatine Kinase 37 L (55-170) U/L CK-MB (CK-2) 0.7 (0.0-2.4) ng/mL CK-MB (CK-2) Rel Index 1.9 Troponin I <0.012 (0.000-0.034) ng/mL Total Protein (6.3-8.2) g/dL Albumin (3.5-5.0) g/dL Urine Color Urine Appearance (Clear) Urine pH (5.0-8.0) Ur Specific Sargent (1.001-1.035) Urine Protein (Negative) Urine Glucose (UA) (Negative) Urine Ketones (Negative) Urine Blood (Negative) Urine Nitrite (Negative) Urine Bilirubin (Negative) Urine Urobilinogen (<2.0) mg/dL Ur Leukocyte Esterase (Negative) 02/20/18 02/20/18 02/20/18 Range/Units 14:12 14:12 14:54 WBC (3.8-10.6) k/uL RBC (4.30-5.90) m/uL Hgb (13.0-17.5) gm/dL Hct (39.0-53.0) % MCV (80.0-100.0) fL MCH (25.0-35.0) pg MCHC (31.0-37.0) g/dL RDW (11.5-15.5) % Plt Count (150-450) k/uL Neutrophils % % Lymphocytes % % Monocytes % % Eosinophils % % Basophils % % Neutrophils # (1.3-7.7) k/uL Lymphocytes # (1.0-4.8) k/uL Monocytes # (0-1.0) k/uL Eosinophils # (0-0.7) k/uL Basophils # (0-0.2) k/uL PT 9.8 (9.0-12.0) sec INR 1.0 (<1.2) APTT 20.7 L (22.0-30.0) sec D-Dimer 0.26 (<0.60) mg/L FEU Sodium 142 (137-145) mmol/L Potassium 4.2 (3.5-5.1) mmol/L Chloride 107 (98-107) mmol/L Carbon Dioxide 28 (22-30) mmol/L Anion Gap 7 mmol/L BUN 19 (9-20) mg/dL Creatinine 1.42 H (0.66-1.25) mg/dL Est GFR (CKD-EPI)AfAm 59 (>60 ml/min/1.73 sqM) Est GFR (CKD-EPI)NonAf 51 (>60 ml/min/1.73 sqM) Glucose 94 (74-99) mg/dL POC Glucose (mg/dL) 226 H (75-99) mg/dL POC Glu Lease Broker ID Jocelin Alvarado Calcium 9.4 (8.4-10.2) mg/dL Magnesium 1.7 (1.6-2.3) mg/dL Total Bilirubin 0.4 (0.2-1.3) mg/dL AST 21 (17-59) U/L ALT 33 (21-72) U/L Alkaline Phosphatase 110 (38-126) U/L Total Creatine Kinase (55-170) U/L CK-MB (CK-2) (0.0-2.4) ng/mL CK-MB (CK-2) Rel Index Troponin I (0.000-0.034) ng/mL Total Protein 6.1 L (6.3-8.2) g/dL Albumin 3.7 (3.5-5.0) g/dL Urine Color Urine Appearance (Clear) Urine pH (5.0-8.0) Ur Specific Sargent (1.001-1.035) Urine Protein (Negative) Urine Glucose (UA) (Negative) Urine Ketones (Negative) Urine Blood (Negative) Urine Nitrite (Negative) Urine Bilirubin (Negative) Urine Urobilinogen (<2.0) mg/dL Ur Leukocyte Esterase (Negative) 02/20/18 Range/Units 16:40 WBC (3.8-10.6) k/uL RBC (4.30-5.90) m/uL Hgb (13.0-17.5) gm/dL Hct (39.0-53.0) % MCV (80.0-100.0) fL MCH (25.0-35.0) pg MCHC (31.0-37.0) g/dL RDW (11.5-15.5) % Plt Count (150-450) k/uL Neutrophils % % Lymphocytes % % Monocytes % % Eosinophils % % Basophils % % Neutrophils # (1.3-7.7) k/uL Lymphocytes # (1.0-4.8) k/uL Monocytes # (0-1.0) k/uL Eosinophils # (0-0.7) k/uL Basophils # (0-0.2) k/uL PT (9.0-12.0) sec INR (<1.2) APTT (22.0-30.0) sec D-Dimer (<0.60) mg/L FEU Sodium (137-145) mmol/L Potassium (3.5-5.1) mmol/L Chloride (98-107) mmol/L Carbon Dioxide (22-30) mmol/L Anion Gap mmol/L BUN (9-20) mg/dL Creatinine (0.66-1.25) mg/dL Est GFR (CKD-EPI)AfAm (>60 ml/min/1.73 sqM) Est GFR (CKD-EPI)NonAf (>60 ml/min/1.73 sqM) Glucose (74-99) mg/dL POC Glucose (mg/dL) (75-99) mg/dL POC Glu Lease Broker ID Calcium (8.4-10.2) mg/dL Magnesium (1.6-2.3) mg/dL Total Bilirubin (0.2-1.3) mg/dL AST (17-59) U/L ALT (21-72) U/L Alkaline Phosphatase (38-126) U/L Total Creatine Kinase (55-170) U/L CK-MB (CK-2) (0.0-2.4) ng/mL CK-MB (CK-2) Rel Index Troponin I (0.000-0.034) ng/mL Total Protein (6.3-8.2) g/dL Albumin (3.5-5.0) g/dL Urine Color Yellow Urine Appearance Clear (Clear) Urine pH 5.0 (5.0-8.0) Ur Specific Sargent 1.009 (1.001-1.035) Urine Protein Negative (Negative) Urine Glucose (UA) Negative (Negative) Urine Ketones Negative (Negative) Urine Blood Negative (Negative) Urine Nitrite Negative (Negative) Urine Bilirubin Negative (Negative) Urine Urobilinogen <2.0 (<2.0) mg/dL Ur Leukocyte Esterase Negative (Negative) Disposition Clinical Impression: Vasovagal syncope, Hypoglycemia Disposition: HOME SELF-CARE Condition: Good Instructions: Hypoglycemia in a Person with Diabetes (ED) Is patient prescribed a controlled substance at d/c from ED?: No Referrals: Cedric Gold DO [Primary Care Provider] - 1-2 days
[2018-02-20] MEDS ORDERED: SODIUM CHLORIDE 0.9% 1,000 ML IV STA (14:05)
[2018-02-20] MEDS ORDERED: SODIUM CHLORIDE 0.9% 500 ML IV STA (14:05)
[2018-02-20] MEDS ORDERED: DEXTROSE 50%-WATER 50 ML SYRINGE IVP STA (14:19)
[2018-02-20 14:32] LABS: Basophils # (A) 0.1 k/uL (0-0.2); Basophils % (A) 1 %; Eosinophils # (A) 0.2 k/uL (0-0.7); Eosinophils % (A) 2 %; HCT 40.4 % (39.0-53.0); HGB 13.6 gm/dL (13.0-17.5); Lymphocytes # (A) 0.9 k/uL (1.0-4.8); Lymphocytes % (A) 11 %; MCH 28.3 pg (25.0-35.0); MCHC 33.6 g/dL (31.0-37.0); MCV 84.2 fL (80.0-100.0); Mean Platelet Volume 6.9; Monocytes # (A) 0.5 k/uL (0-1.0); Monocytes % (A) 6 %; Neutrophils # (A) 6.6 k/uL (1.3-7.7); Neutrophils % (A) 79 %; Platelet Count 218 k/uL (150-450); RDW 15.2 % (11.5-15.5); WBC 8.3 k/uL (3.8-10.6)
[2018-02-20 14:44] LABS: Albumin 3.7 g/dL (3.5-5.0); Calcium 9.4 mg/dL (8.4-10.2); Magnesium 1.7 mg/dL (1.6-2.3); Potassium 4.2 mmol/L (3.5-5.1); Total Bilirubin 0.4 mg/dL (0.2-1.3); Total Protein 6.1 g/dL (6.3-8.2)
[2018-02-20 15:02] LABS: D-Dimer 0.26 mg/L FEU (<0.60); Prothrombin Time 9.8 sec (9.0-12.0)
[2018-02-20 15:03] LABS: Partial Thromboplastin Time 20.7 sec (22.0-30.0)
[2018-02-20 15:06] LABS: Creatine Kinase 37 U/L (55-170)
[2018-02-20 15:17] LABS: Creatine Kinase MB 0.7 ng/mL (0.0-2.4); Troponin I <0.012 ng/mL (0.000-0.034)
[2018-02-20 15:20] LABS: Glucose,Whole Blood 226 mg/dL (75-99)
[2018-02-20 15:47] VITALS: RESP 18
[2018-02-20 17:20] VITALS: BP 124/58; PULSE 56; TEMP 98
[2018-02-20 17:21] LABS: Appearance,Urine Clear (Clear); Bilirubin,Urine Negative (Negative); Blood,Urine Negative (Negative); Color,Urine Yellow; Glucose,Urine (UA) Negative (Negative); Ketones,Urine Negative (Negative); Leukocyte Esterase,Urine Negative (Negative); Nitrite,Urine Negative (Negative); Protein,Urine Negative (Negative); Specific Gravity,Urine 1.009 (1.001-1.035); Urobilinogen,Urine <2.0 mg/dL (<2.0)
== END 2018-02-20 17:19 | disposition home or self-care (01) ==
LOC: EC 13:31
DX: E11.649 Type 2 diabetes mellitus with hypoglycemia without coma (principal); R55 Syncope and collapse; I25.10 Atherosclerotic heart disease of native coronary artery without angina pectoris; E78.5 Hyperlipidemia, unspecified; I12.9 Hypertensive chronic kidney disease with stage 1 through stage 4 chronic kidney disease, or unspecified chronic kidney disease; E11.22 Type 2 diabetes mellitus with diabetic chronic kidney disease; N18.9 Chronic kidney disease, unspecified; I25.2 Old myocardial infarction; G40.909 Epilepsy, unspecified, not intractable, without status epilepticus; E11.42 Type 2 diabetes mellitus with diabetic polyneuropathy; Z86.73 Personal history of transient ischemic attack (TIA), and cerebral infarction without residual deficits; Z85.46 Personal history of malignant neoplasm of prostate; Z95.5 Presence of coronary angioplasty implant and graft; Z87.891 Personal history of nicotine dependence; Z79.82 Long term (current) use of aspirin; Z79.4 Long term (current) use of insulin; Z79.899 Other long term (current) drug therapy
CPT/HCPCS: 36415; 80053; 81003; 82550; 82553; 83735; 84484; 85025; 85379; 85610; 85730; 93005; 96361; 96374; 99285

== ENCOUNTER → 2018-04-01 | Outpatient (CLI) | payer MEDICARE, OTHER | LOC: LABWHC1 10:13 | PROVIDERS: ATTEND Psychiatry & Neurology Pain Medicine | DX: G40.909 Epilepsy, unspecified, not intractable, without status epilepticus (principal) | CPT/HCPCS: 36415; 80183 ==

== ENCOUNTER → 2018-04-28 | Outpatient (CLI) | payer MEDICARE, OTHER ==
--- NOTE | 2018-04-28 17:08 | CT ---
EXAMINATION TYPE: CT chest w con DATE OF EXAM: 04/28/2018 COMPARISON: 10/22/2017 HISTORY: Pneumonia follow-up. CT DLP: 597.6 mGycm, Automated exposure control for dose reduction was used. CONTRAST: Performed injected with 80 mL of Isovue M300. TECHNIQUE: Axial images were obtained at 5 mm thick sections. Reconstructed images are reviewed on [employer] computer in the coronal plane. FINDINGS: Portion of the thyroid visualized is normal. There are multiple peripheral small nodules. This would include a 0.8 cm nodule along the periphery o f the left upper lobe. Series 4 image 13 a 0.6 cm nodule within the posterior periphery right upper l obe. Series 4 image 16. Some thickening along the posterior left midlung. Series 4 image 24. 0.9 cm n odule right lower lobe. Series 4 image 33. A 0.7 cm Nodule within the right middle lobe. Series 4 harjit ge 36. A 0.7 cm peripheral nodule within the lingula. Series 4 image 39. A 0.6 cm nodule slightly mor e superior. Series 4 image 37. A peripheral right lower lobe nodule measuring 0.6 cm. Series 4 image 41. These nodules are present previously and appear stable. There are are multiple enlarged mediastinal and hilar lymph nodes present. Reference nodules would i nclude a 1.2 cm lymph node at the level of the aortic arch. Image 20. A medial aortopulmonic window l ymph node measuring 1.0 cm. Image 21. Pretracheal lymph node measuring 1.1 cm. Image 22. Right hilar adenopathy measuring 1.2 cm. Image 27. There is also soft tissue density extending through the right infrahilar region through the subcarinal region and into the left infrahilar region as well. This cou ld be related to multiple small confluent lymph nodes. This finding was present previously. The right paratracheal lymph node near the superior mediastinum to the right of the trachea currently measures 2.5 x 1.9 cm which is increased from 1.6 x 1.3 cm. Ascending aorta diameter at the level of the main pulmonary artery is 3.1 cm. The main pulmonary art diego diameter at the bifurcation is 3.[address] sections are obtained through the upper abdomen. Gallstones are present. IMPRESSIONS: 1. Enlarging mediastinal lymphadenopathy. Additional smaller lymphadenopathy and/or soft tissue mass extends through the subcarinal region and into the infrahilar regions bilaterally. Findings appear to be worsening and enlarging comparison study of 10/22/2017. Workup for neoplasm is recommended. Differe ntial diagnosis could include other etiologies such as sarcoidosis, lymphoma, Castleman's disease. A Yellow level critical message alert has been initiated for Monse Reyes via the [facility] Critical Results System on 04/28/2018 5:06 PM. This message alert has been sent to Monse Reyes via the preferences provided by the clinician for the receipt of Radiology Critical Findings. Fixetudeag e ID [id number].
== END ==
LOC: RADCTMAIN 10:55
PROVIDERS: ATTEND Internal Medicine Critical Care Medicine
DX: R59.0 Localized enlarged lymph nodes (principal)
CPT/HCPCS: 82565; 84520; 71260; 36415; Q9967

== ENCOUNTER → 2018-05-10 | Outpatient (CLI) | payer MEDICARE, OTHER ==
--- NOTE | 2018-05-10 14:09 | PE ---
EXAMINATION TYPE: PET CT fusion skull to thigh DATE OF EXAM: 05/10/2018 COMPARISON: Chest CT April 28, 2018 and older CTs HISTORY: Solitary pulmonary nodule , history of prostate cancer with radiation treatment 2010. Rece nt abnormal CT. TECHNIQUE: Following the intravenous administration of 13.81 mCi of F-18 FDG, whole body images are performed from the skull base to the midthigh. Images are reviewed on the computer in the coronal, a xial, and sagittal planes. Reconstructed rotating images are created on independent workstation and reviewed on the computer. A noncontrast CT is performed in conjunction with the PET scan. SCAN: Initial Scan FINDINGS: SKULL BASE AND NECK: No suspicious areas of hypermetabolic uptake are present. CHEST, MEDIASTINUM, AND HILAR REGION: Correlating to most recent CT there are scattered nodules and a reas of nodular consolidation bilaterally including involvement of the periphery. For reference there is 6 mm peripheral right middle lobe nodule axial image 107 not significantly changed from prior monalisa dies that is ametabolic. There is a metabolic 8mm central right lung nodule axial image 102 not signi ficantly changed back through August 01, 2017 CT. There is however suspicious thoracic adenopathy with prominent hypermetabolic lymph nodes seen throug hout the mediastinum. There is hypermetabolic right paratracheal lymph node measuring 1.5 x 1.2 cm ax ial image 72 redemonstrated, max SUV is 4.38. There is hypermetabolic suspect slightly enlarged but i ll-defined prevascular lymph node axial image 89 with max SUV of 3.95. There are additional enlarged slightly hypermetabolic right hilar lymph nodes and slightly more prominent hypermetabolic subcarinal lymph node axial image 101 with max SUV 3.46. Prominent enlarged lymph nodes have been present back through August 01, 2017 CT. ABDOMEN AND PELVIS: No areas of suspicious hypermetabolic uptake in the abdomen or pelvis are clearly seen. OSSEOUS STRUCTURES: No suspicious hypermetabolic uptake is seen in osseous structures. OTHER CT: Visualized brain parenchyma shows ventricular and sulcal prominence consistent with diffuse cerebral atrophy. There is 1.6 cm mucous retention cyst or polyp in the posterior inferior right maxillary sinus. There is mild to moderate calcified plaque at bilateral carotid bulbs. There is coronary artery calcification is seen which is noted marker for coronary artery disease. Small degree of bilateral gynecomastia is present. Dependent small calcified gallstones are seen in gallbladder. Brachytherapy seeds in prostate gland are noted. IMPRESSION: No suspicious hypermetabolic uptake is seen in scattered subcentimeter pulmonary nodules, I see no obvious change in size from initial CT August 01, 2017. There are persistent enlarged mediastinal and right hilar lymph nodes with mild abnormal hypermetabol ic uptake. Given stability from August 01, 2017 postinflammatory etiology would be favored. Cannot entirely exclude neoplasm. Consider sampling and/or continued imaging monitoring.
== END ==
LOC: RADPETMAIN 10:26
PROVIDERS: ATTEND Internal Medicine Critical Care Medicine
DX: R91.1 Solitary pulmonary nodule (principal)
CPT/HCPCS: 78815; A9552

== ENCOUNTER 2018-07-28 15:58 | Emergency (ER) | payer MEDICARE, OTHER ==
[2018-07-28 16:23] VITALS: TEMP 98.6
--- NOTE | 2018-07-28 17:43 | ED ---
General Adult HPI - General Source: patient, family, RN notes reviewed, old records reviewed Mode of arrival: ambulatory Limitations: no limitations <Alexander Weiss - Last Filed: 07/28/18 19:25> <Clay Weeks - Last Filed: 07/28/18 19:32> - General Chief complaint: Extremity Injury, Lower Stated complaint: Rt ankle injury, fall-Dr sent Time Seen by Provider: 07/28/18 17:09 - History of Present Illness Initial comments: 67-year-old male patient with past medical history of coronary artery disease, diabetes, hypertension presents to ED with 1 week of right ankle pain. Pt is on blood thinners. Patient reports that he fell out of bed approximately one week ago while sleeping, suffered a minor trauma to his right ankle. Patient has had right ankle pain since. Patient has continued ambulatory. Patient unsure if he had trauma to head or neck. Patient denies any loss of consciousness. Patient denies any other injuries. Patient denies other complaints. Systemic: Pt denies fatigue, fever/chills, rash. Pt denies weakness, night sweats, weight loss. Neuro: Pt denies headache, visual disturbances, syncope or pre-syncope. HEENT: Pt denies ocular discharge or irritation, otalgia, rhinorrhea, pharyngitis or notable lymphadenopathy. Cardiopulmonary: Pt denies chest pain, SOB, heart palpitations, dyspnea on exertion. Abdominal/GI: Pt denies abdominal pain, n/v/d. : Pt denies dysuria, burning w/ urination, frequency/urgency. Denies new onset urinary or bowel incontinence. MSK: Pt denies loss of strength or function in extremities. Neuro: Pt denies new onset weakness, paresthesias. (Alexander Weiss) - Related Data Home Medications Medication Instructions Recorded Confirmed Aspirin 81 mg PO DAILY 01/12/15 02/20/18 Gabapentin 800 mg PO BID 04/18/16 02/20/18 HYDROcodone/APAP 7.5-325MG [Dixie 1 tab PO DAILY PRN 03/14/17 02/20/18 7.5-325] Primidone [Mysoline] 150 mg PO HS 03/14/17 02/20/18 Atorvastatin Calcium [Lipitor] 80 mg PO HS 07/30/17 09/30/17 Cyclobenzaprine [Flexeril] 10 mg PO HS PRN 07/30/17 02/20/18 Donepezil [Aricept] 10 mg PO HS 07/30/17 02/20/18 Ergocalciferol [Vitamin D2 50,000 unit PO MO 07/30/17 02/20/18 (DRISDOL)] INSULIN LISPRO (For Pump) [humaLOG See Protocol SQ-PUMP CONTINUOUS 07/30/1712/02 (For Pump)] Meclizine [Antivert] 25 mg PO TID PRN 07/30/17 02/20/18 Memantine HCl [Namenda] 10 mg PO BID 07/30/17 02/20/18 rOPINIRole HCL [Requip] 0.25 mg PO TID 07/30/17 02/20/18 Escitalopram [Lexapro] 10 mg PO DAILY 02/20/18 02/20/18 Lactulose 10 gm PO DAILY PRN 02/20/18 02/20/18 Magnesium Oxide [Mag-Oxide] 400 mg PO DAILY 02/20/18 02/20/18 Torsemide [Demadex] 5 mg PO TUTHSA 02/20/18 02/20/18 Previous Rx's Medication Instructions Recorded Isosorbide Mononitrate ER [Imdur] 30 mg PO DAILY #30 tab.er.24h 01/17/15 Losartan [Cozaar] 50 mg PO DAILY #30 tab 01/17/15 Metoprolol Tartrate [Lopressor] 25 mg PO DAILY #30 tab 01/17/15 Nitroglycerin Sl Tabs [Nitrostat] 0.4 mg SUBLINGUAL Q5M PRN #25 tab 01/17/15 Prasugrel [Effient] 10 mg PO DAILY #30 tab 01/17/15 OXcarbazepine [Trileptal] 300 mg PO BID #60 tab 08/10/17 Allergies Allergy/AdvReac Type Severity Reaction Status Date / Time No Known Allergies Allergy Verified 07/28/18 16:20 Review of Systems ROS Other: All systems not noted in ROS Statement are negative. <Alexander Weiss - Last Filed: 07/28/18 19:25> ROS Other: All systems not noted in ROS Statement are negative. <Clay Weeks - Last Filed: 07/28/18 19:32> ROS Statement: Those systems with pertinent positive or pertinent negative responses have been documented in the HPI. 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 Past Anesthesia/Blood Transfusion Reactions: Motion Sickness Additional Past Anesthesia/Blood Transfusion Reaction / Comment(s): CLAUSTERPHOBIC Date of Last Stent Placement:: 2014 Past Psychological History: No Psychological Hx Reported Smoking Status: Former smoker Past Alcohol Use History: None Reported Past Drug Use History: None Reported - Past Family History Father Family Medical History: Cancer Additional Family Medical History / Comment(s): FATHER HAD BLADDER CANCER AND OF THIS IN HIS 40'S Mother Family Medical History: Cancer, Dementia Additional Family Medical History / Comment(s): UTERINE CANCER. Mother of dementia at the age of 89yrs. <Alexander Weiss - Last Filed: 07/28/18 19:25> General Exam Limitations: no limitations <Alexander Weiss - Last Filed: 07/28/18 19:25> <Clay Weeks - Last Filed: 07/28/18 19:32> - General Exam Comments Initial Comments: Constitutional: NAD, AOX3, Pt has pleasant affect. HEENT: NC/AT, trachea midline, neck supple, no lymphadenopathy. Posterior pharynx non erythematous, without exudates. External ears appear normal, without discharge. Mucous membranes moist. Eyes PERRLA, EOM intact. There is no scleral icterus. No pallor noted. Cardiopulmonary: RRR, no murmurs, rubs or gallops, no JVD noted. Lungs CTAB in anterior and posterior irizarry. No peripheral edema. Abdominal exam: Abdomen soft and non-distended. Abdomen non-tender to palpation in all 4 quadrants. Bowel sounds active in LLQ. No hepatosplenomegaly. No ecchymosis Neuro: CN II-XII intact. No nuchal rigidity. MSK: R ankle mildly tender to palpation. No erythema, or ecchymosis. No posterior calf tenderness bilaterally, homans sign negative bilaterally. Posterior tibialis and radial pulse +2 bilaterally. Sensation intact in upper and lower extremities. Full active ROM in upper and lower extremities, 5/5 stregnth. (Alexander Weiss) Course <Alexander Weiss - Last Filed: 07/28/18 19:25> <Clay Weeks - Last Filed: 07/28/18 19:32> Vital Signs 07/28/18 16:20 Temperature 98.6 F Pulse Rate 67 Respiratory 18 Rate Blood Pressure 160/79 O2 Sat by Pulse 94 L Oximetry - Reevaluation(s) Reevaluation #1: 07/28/18 19:32 PA supervision: I proceeded [id number] evaluation the patient did discuss findings with him. Patient does have pain but no evidence of fracture review the imaging. I do agree with the assessment and plan. (Clay Weeks) Medical Decision Making <Alexander Weiss - Last Filed: 07/28/18 19:25> <Clay Weeks - Last Filed: 07/28/18 19:32> - Medical Decision Making 67-year-old male patient with past medical history of coronary artery disease, diabetes, hypertension presents to ED with 1 week of right ankle pain. Pt is on blood thinners. Patient reports that he fell out of bed approximately one week ago while sleeping, suffered a minor trauma to his right ankle. Patient has had right ankle pain since. Patient has continued ambulatory. Patient unsure if he had trauma to head or neck. Patient denies any loss of consciousness. Patient denies any other injuries. Patient denies other complaints. Pt VSS, afebrile. Physical exam displayed: R ankle mildly tender to palpation. No erythema, or ecchymosis. No posterior calf tenderness bilaterally, homans sign negative bilaterally. Posterior tibialis and radial pulse +2 bilaterally. Sensation intact in upper and lower extremities. Full active ROM in upper and lower extremities, 5/5 stregnth. CN II-XII intact. No nuchal rigidity. CT of brain and cervical spine not displaying any acute process. Plain film did not display any acute process. Patient findings explained to patient. Patient placed in a postop walking boot. Patient to follow up with primary care provider tomorrow. Patient to return to ED if new signs symptoms or condition worsens in anyway. Case discussed in depth with Dr. Weeks. (Alexander Weiss) Disposition Is patient prescribed a controlled substance at d/c from ED?: No Time of Disposition: 19:27 <Alexander Weiss - Last Filed: 07/28/18 19:25> <Clay Weeks - Last Filed: 07/28/18 19:32> Clinical Impression: Ankle sprain Disposition: HOME SELF-CARE Condition: Stable Instructions (If sedation given, give patient instructions): Ankle Sprain (ED) Additional Instructions: Patient to adhere to previously discussed treatment plan and will take medication(s) as directed. Patient to follow up with PCP in 1-2 days. Patient to return to ED if symptoms do not improve. Referrals: Cedric Gold DO [Primary Care Provider] - 1-2 days
--- NOTE | 2018-07-28 17:56 | XR ---
PROCEDURE: XR ankle complete RT - 3V DATE AND TIME: 07/28/2018 5:21 PM CLINICAL INDICATION: PHH; Pain TECHNIQUE: Department protocol COMPARISON: None FINDINGS: There is no fracture or malalignment. The soft tissues are unremarkable. IMPRESSION: NO ACUTE PROCESS.
[2018-07-28] MEDS ORDERED: DIPH,PERTUS(ACELL)TETVAC-LF 0.5 ML VIAL IM ONE (18:48)
--- NOTE | 2018-07-28 19:05 | CT ---
EXAMINATION TYPE: CT brain cspine wo con DATE OF EXAM: 07/28/2018 COMPARISON: 09/30/2017 HISTORY: Multiple falls in the past week CT DLP: 1680.3 mGycm Automated exposure control for dose reduction was used. TECHNIQUE: CT scan of the head and cervical spine are performed without contrast. FINDINGS: There is no acute intracranial hemorrhage, mass effect, or midline shift identified. The ventricles and sulci are within normal limits in size. The globes are intact and the visualized sin uses are clear. Cervical spine is visualized in its entirety from C1 through upper thoracic levels and demonstrates s atisfactory alignment without evidence of acute fracture or dislocation. Multilevel moderate marked c ervical spondylosis changes are noted. Prevertebral soft tissue appears within normal limits. The C 1-C2 articulation is unremarkable. Incidental finding: Mild superior mediastinal adenopathy noted. This was noted at the time of PET/CT 05/10/2018. IMPRESSION: 1. There is no acute fracture or dislocation evident in the cervical spine. 2. No acute intracranial hemorrhage, mass effect, or midline shift is seen.
[2018-07-28 19:51] VITALS: BP 178/82; PULSE 64; RESP 16
== END 2018-07-28 19:49 | disposition home or self-care (01) ==
LOC: EC 15:58
DX: S93.401A Sprain of unspecified ligament of right ankle, initial encounter (principal); E78.5 Hyperlipidemia, unspecified; I12.9 Hypertensive chronic kidney disease with stage 1 through stage 4 chronic kidney disease, or unspecified chronic kidney disease; I25.119 Atherosclerotic heart disease of native coronary artery with unspecified angina pectoris; N18.9 Chronic kidney disease, unspecified; E11.22 Type 2 diabetes mellitus with diabetic chronic kidney disease; E11.42 Type 2 diabetes mellitus with diabetic polyneuropathy; G40.909 Epilepsy, unspecified, not intractable, without status epilepticus; M19.90 Unspecified osteoarthritis, unspecified site; I25.2 Old myocardial infarction; Z87.891 Personal history of nicotine dependence; Z79.4 Long term (current) use of insulin; Z79.82 Long term (current) use of aspirin; Z79.899 Other long term (current) drug therapy; Z96.41 Presence of insulin pump (external) (internal); Z85.46 Personal history of malignant neoplasm of prostate; Z95.5 Presence of coronary angioplasty implant and graft; Z92.3 Personal history of irradiation; Z96.0 Presence of urogenital implants; Z86.73 Personal history of transient ischemic attack (TIA), and cerebral infarction without residual deficits; Z23 Encounter for immunization; W06.XXXA Fall from bed, initial encounter; Y92.009 Unspecified place in unspecified non-institutional (private) residence as the place of occurrence of the external cause
CPT/HCPCS: 70450; 72125; 90471; 90715; 99284

== ENCOUNTER → 2018-09-16 | Outpatient (CLI) | payer MEDICARE ==
[2018-09-16 17:11] LABS: Albumin 4.4 g/dL (3.80-4.90); Albumin/Globulin Ratio 2.59 (1.60-3.17); Anion Gap 7.5 mmol/L (4.00-12.00); Calcium 9.5 mg/dL (8.7-10.3); Carbon Dioxide 29.5 mmol/L (21.6-31.8); Globulin 1.7 g/dL (1.6-3.3); LDL Cholesterol,Calculated 86.8 mg/dL (0.0-131.0); Potassium 4.4 mmol/L (3.5-5.5); Total Bilirubin 0.4 mg/dL (0.2-1.2); Total Protein 6.1 g/dL (6.2-8.2); VLDL Calculation 50.2 mg/dL (5.00-40.00)
[2018-09-16 20:30] LABS: Hemoglobin A1C 6.8 % (4.0-6.0)
== END ==
LOC: LABWHC1 11:26
PROVIDERS: ATTEND Internal Medicine Endocrinology, Diabetes & Metabolism
DX: E11.65 Type 2 diabetes mellitus with hyperglycemia (principal)
CPT/HCPCS: 36415; 80053; 80061; 82043; 82570; 83036; 84443

== ENCOUNTER → 2018-10-28 | Outpatient (CLI) | payer MEDICARE ==
--- NOTE | 2018-10-28 13:59 | CT ---
EXAMINATION TYPE: CT chest w con DATE OF EXAM: 10/28/2018 COMPARISON: 04/28/2018 and 10/22/2017 and 08/01/2009 HISTORY: 67-year-old male Cough, pneumonia TECHNIQUE: Contiguous axial scanning of the chest after the administration of 80 mL of Isovue 300. C oronal/sagittal reconstructions performed. CT DLP: 625.3mGycm. Automatic exposure control utilized for a dose reduction. FINDINGS: Heart normal size without pericardial effusion. Extensive coronary vessel calcifications are present. Aorta normal caliber with conventional branching anatomy. Redemonstrated mediastinal, bilateral hilar, bilateral bronchial lymphadenopathy. Lymphadenopathy mikey sures up to 2.5 cm right paratracheal region, 1.3 cm AP window, 1.6 cm and hilum, 2.3 cm subcarinal. While there has been slight overall progression from 08/01/2017, there has been no significant change from 04/28/2018. Some thickening of the central bronchovascular bundles to the lower lobes and scattered nodularity. M uch of the nodularity is located along the fissures and subpleural regions measuring up to 9 mm. No definite new nodules are significant progression in size of nodules. No consolidation or pleural effusion. Visualized upper abdomen shows cholelithiasis and hilar splenules. Bones: Cervical spondylosis. Moderate degenerative disc disease lower thoracic spine. IMPRESSION: 1. Mediastinal and hilar lymphadenopathy measuring up to 2.5 cm. This shows very minimal progression from 08/01/2017 but stable appearance from 04/28/2018. 2. Numerous scattered pulmonary nodules measuring up to 9 mm are unchanged from 10/22/2017. The majorit y of these are located along the fissures or in the subpleural region which corresponds to a perilymp hatic distribution. Sarcoidosis is high in the differential especially given the stable thickening al lois the lower lobe bronchovascular bundles. Consider establishing a diagnosis with transbronchial bio psy of a lymph node. 3. Overall indolent course makes neoplasm less likely. Neoplasm could be fully excluded if a tissue diagnosis was obtained. 4. CAD.
== END | disposition home or self-care (01) ==
LOC: RADCTMAIN 12:29
PROVIDERS: ATTEND Internal Medicine Critical Care Medicine
DX: I25.10 Atherosclerotic heart disease of native coronary artery without angina pectoris (principal); R59.0 Localized enlarged lymph nodes; R91.8 Other nonspecific abnormal finding of lung field
CPT/HCPCS: 82565; 84520; 71260; 36415; Q9967

== ENCOUNTER → 2018-11-21 | Outpatient (CLI) | payer MEDICARE ==
--- NOTE | 2018-11-21 14:53 | XR ---
EXAMINATION TYPE: XR chest 2V DATE OF EXAM: 11/21/2018 COMPARISON: CT chest dated 10/28/2018 HISTORY: Shortness of breath on exertion. Prior CA with cardiac stents. Possible vertebral fracture t hat is chronic and lumbar stenosis. TECHNIQUE: Frontal and lateral views of the chest are obtained. FINDINGS: There is no focal air space opacity, pleural effusion, or pneumothorax seen. The known bhagat bcentimeter multiple bilateral pulmonary nodules and mediastinal adenopathy are better visualized on CT with mediastinal prominence noted on radiograph. The cardiac silhouette size is within normal limi ts. Mild multilevel degenerative changes of the thoracic spine are seen. The osseous structures are intact. IMPRESSION: No acute cardiopulmonary process. Mediastinal prominence relates to the known hilar gunner opathy. The known bilateral subcentimeter pulmonary nodules are better evaluated with CT and not well seen radiographically.
[2018-11-21 15:04] LABS: HCT 44.5 % (39.0-53.0); HGB 14.8 gm/dL (13.0-17.5); MCHC 33.3 g/dL (31.0-37.0); MCV 87.2 fL (80.0-100.0); Mean Platelet Volume 7.1; Platelet Count 229 k/uL (150-450); RBC 5.11 m/uL (4.30-5.90); RDW 14.9 % (11.5-15.5)
[2018-11-21 15:10] LABS: Appearance,Urine Clear (Clear); Bilirubin,Urine Negative (Negative); Blood,Urine Negative (Negative); Color,Urine Yellow; Glucose,Urine (UA) Negative (Negative); Ketones,Urine Negative (Negative); Leukocyte Esterase,Urine Negative (Negative); Nitrite,Urine Negative (Negative); PH, Urine 5.5 (5.0-8.0); Protein,Urine Trace (Negative); Specific Gravity,Urine 1.034 (1.001-1.035)
[2018-11-21 15:13] LABS: INR 0.9 (<1.2); Prothrombin Time 9.7 sec (9.0-12.0)
[2018-11-21 15:15] LABS: Calcium 9.7 mg/dL (8.4-10.2); Potassium 4.9 mmol/L (3.5-5.1)
[2018-11-21 15:44] LABS: Partial Thromboplastin Time 21.1 sec (22.0-30.0)
== END | disposition home or self-care (01) ==
LOC: LABPAT 13:58
PROVIDERS: ATTEND Orthopaedic Surgery Orthopaedic Surgery of the Spine
DX: Z01.818 Encounter for other preprocedural examination (principal); M48.061 Spinal stenosis, lumbar region without neurogenic claudication; R91.8 Other nonspecific abnormal finding of lung field; R59.0 Localized enlarged lymph nodes; Z01.812 Encounter for preprocedural laboratory examination
CPT/HCPCS: 71046; 80048; 81003; 85027; 85610; 85730; 87070

== ENCOUNTER 2018-12-01 10:45 | Inpatient (IN) | payer MEDICARE ==
[~2018-12-01 10:45] MED LIST: BACITRACIN 50,000 UNIT, POLYMYXIN B 500,000 UNIT in SODIUM CHLORIDE 0.9% IRRIGATIO 1,00... IRRIGATION ONE; DEXAMETHASONE SOD PHOSPHATE 10 MG/ML 1 ML VIAL IV ONE; MIDAZOLAM 2 MG/2 ML VIAL IV PRN; ONDANSETRON 4 MG/2 ML VIAL IVP ONE; ceFAZolin 3 GM in SODIUM CHLORIDE 0.9% 100 ML IVPB ONE
[2018-12-01] MEDS ORDERED: LIDOCAINE 1% 20 ML VIAL (10MG/ML) FOR IV START INTRADERMA ONE (12:00)
[2018-12-01] MEDS: LACTATED RINGERS 1,000 ML IV SCH (12:28)
[2018-12-01 12:40] LABS: Glucose,Whole Blood 87 mg/dL (75-99)
[2018-12-01] MEDS ORDERED: MIDAZOLAM 2 MG/2 ML VIAL ONE (13:34)
[2018-12-01] MEDS ORDERED: ROCURONIUM BROMIDE 10 MG/ML 10 ML VIAL IV ONE (13:34)
[2018-12-01] MEDS ORDERED: FUROSEMIDE 10 MG/ML 2 ML VIAL ONE (13:34)
[2018-12-01] MEDS ORDERED: GLYCOPYRROLATE 0.2 MG/ML 2 ML VIAL ONE (13:34)
[2018-12-01] MEDS ORDERED: ePHEDrine SULFATE/0.9% NACL/PF 50 MG/5 ML SYRINGE IV ONE (13:34)
[2018-12-01] MEDS ORDERED: fentaNYL (PF) 50 MCG/ML 2 ML AMP ONE (13:34)
[2018-12-01] MEDS ORDERED: LIDOCAINE 1% INJ 10MG/ML (20 ML MDV) ONE (13:34)
[2018-12-01] MEDS ORDERED: PHENYLEPHRINE-0.9% NACL SYG 1 MG/10 ML SYRINGE ONE (13:34)
[2018-12-01] MEDS ORDERED: HYDROmorphone (PF) 1 MG/ML ONE (13:34)
[2018-12-01] MEDS ORDERED: PROPOFOL 10 MG/ML 20 ML VIAL IV ONE (13:34)
[2018-12-01] MEDS ORDERED: LIDOCAINE 0.5%-EPI 1:200,000 50 ML VIAL SQ ONE (14:34)
[2018-12-01] MEDS ORDERED: THROMBIN (BOVINE) 5,000 UNIT VIAL TOPICAL ONE (15:01)
[2018-12-01] MEDS ORDERED: GELATIN SPONGE,ABSORB (LARGE) 1 EACH SPONGE TOPICAL ONE (15:02)
[2018-12-01 16:08] LABS: Glucose,Whole Blood 95 mg/dL (75-99)
[2018-12-01] MEDS ORDERED: LACTATED RINGERS 1,000 ML IV ONE ×2 (16:44→18:16)
[2018-12-01] MEDS ORDERED: MAGNESIUM HYDROXIDE 2,400 MG/10 ML CUP PO PRN (18:43)
[2018-12-01] MEDS ORDERED: HYDROmorphone 0.5 MG/0.5 ML SYRINGE IVP PRN (18:43)
[2018-12-01] MEDS ORDERED: BENZOCAINE/MENTHOL LOZENG 1 EACH LOZENGE MUCOUS MEM PRN (18:43)
[2018-12-01] MEDS ORDERED: HYDROcodone/APAP 5-325MG 1 EACH TAB PO PRN (18:44)
[2018-12-01] MEDS ORDERED: ONDANSETRON 4 MG/2 ML VIAL IVP PRN (18:44)
[2018-12-01] MEDS ORDERED: CYCLOBENZAPRINE 10 MG TAB PO PRN (18:46)
[2018-12-01] MEDS ORDERED: FUROSEMIDE 10 MG TAB PO PRN (18:46)
[2018-12-01] MEDS ORDERED: MECLIZINE 25 MG TAB PO PRN (18:46)
[2018-12-01] MEDS ORDERED: NITROGLYCERIN SL TABS 0.4 MG TAB SUBLINGUAL PRN (18:46)
[2018-12-01] MEDS ORDERED: LACTULOSE 20 GM/30 ML CUP PO PRN (18:46)
[2018-12-01] MEDS ORDERED: INSULIN LISPRO (For Pump) 100 UNIT/ML VIAL SQ-PUMP SCH (19:00)
[2018-12-01] MEDS ORDERED: ERGOCALCIFEROL 50,000 UNIT CAP PO SCH (19:00)
--- NOTE | 2018-12-01 19:05 | P.OP ---
Date of Procedure: 12/01/18 Preoperative Diagnosis: Spondylolisthesis L5-S1, spinal stenosis L3 4 L4 5 L5-S1, degenerative disc disease L3 4 L4 5 L5-S1, lower extremity radiculopathy, low back pain, lower extremity weakness, Postoperative Diagnosis: Same Anesthesia: GETA Pathology: none sent Condition: stable Disposition: PACU Description of Procedure: DESCRIPTION OF PROCEDURE(S): BRIEF OPERATIVE NOTE Preoperative Diagnosis: Spondylolisthesis L5-S1, spinal stenosis L3 4 L4 5 L5- S1, degenerative disc disease L3 4 L4 5 L5-S1, lower extremity radiculopathy, low back pain, lower extremity weakness Postoperative Diagnosis: Procedure: Laminectomy and decompression with bilateral foraminotomy L3 4 L4 5 L5-S1 Minimally invasive Posterior lateral decompression and fusion L3 4 L4 5 L5-S1 Minimally invasive Transforaminal lumbar interbody fusion for a 360 fusion L4 5 L5-S1 Discectomy for decompression L4 5 L5-S1 Placement of interbody graft L4 5 L5-S1 Reduction of spondylolisthesis L5-S1 Local autogenous bone grafting Harvesting of bone marrow aspirate from the pedicle and vertebral body of L 3 Use of Cell Saver Use of bone graft extenders Surgeon: Dr. Black Director Television: David Martinez is present throughout the entire the case persistence during positioning, dissection, exposure, visualization, and all crucial elements of the case as well as closure. Anesthesia: General anesthesia Estimated blood loss: Approximately 300 mL with 126 given back through Cell Saver Complications: None apparent Components implanted: K2M minimally invasive [place] pedicle screw system with use of 8 screws measuring 6.5 mm diameter with 2 rods and 2 Aleucian PEEK as well as one large Ostroamp and sponge and 15 mL of DBX bone fibers to supplemental local autogenous bone graft cages Disposition: To recovery room in good stable condition. OPERATIVE INDICATIONS The patient has had long-standing issues in their lower back and lower extremities. He has multiple medical issues including diabetes hypertension history of stroke with renal disease and residual right sided weakness. The patient was having worsening symptoms in his back and having decreased ability to mobilize and ambulate. He was having worsening mobility and was having more problems with regular ambulation and had use of walkers for assistance. He had been found to have severe disc degeneration with spondylolisthesis and spinal stenosis at his lumbar spine which were well with his low back and lower show any symptoms. He is not having any benefit despite aggressive conservative treatment. The patient has been through conservative treatment. We discussed various treatment options including surgery, and the patient wishes to proceed with surgery We discussed the risk, patient's alternatives and benefits of surgery including but not limited to, risk of bleeding risk of infection, risk of need for further surgery, risk of decreased, loss of motion, muscle function, malunion nonunion, hardware failure, nerve damage, paralysis, heart attack, blindness and . OPERATIVE SUMMARY After discussing all the risks, patient alternatives and benefits at length, the patient elected to proceed with surgical intervention, signed informed consent, and presented for their procedure. The patient was seen and examined in the preoperative holding area and the surgical site was marked. The patient was given antibiotics and brought to the operating room. The patient was sedated and intubated by anesthesia in standard fashion. The patient was positioned on to the operating room table in a prone position on the appropriate frame which was well-padded and well molded. We were careful to pad any bony prominences and pressure points. We were careful to maintain the patient's cervical spine and good neutral alignment and position throughout. The patient was prepped and draped in a normal standard fashion. An appropriate timeout and keystone protocol performed. We were able to proceed with the surgery. The local wound area was infiltrated with local anesthetic. I was able utilize C-arm guidance to establish appropriate position over the pedicles bilaterally at the appropriate levels at L3 L4 L5 and S1. With the appropriate levels confirmed was able to make small stab incisions over the appropriate pedicle sites bilaterally. Utilizing C-arm in his house able to establish a Jamshidi needle over the lateral aspect of the pedicle and advanced the trocar into the pedicle being careful not to breech superiorly inferiorly medially or laterally. Position was confirmed regularly with AP and lateral images on C-arm. I was able to establish the trocar into the pedicle appropriately into the posterior aspect of the vertebral body bilaterally at the appropriate levels at L3 L4 L5 and S1 bilaterally. This was done at each of the pedicle positions and each of the vertebrae. At L3 on the right specifically I was able to withdraw approximately 25 mL of bone marrow aspirate to be used and supplementation for the bone autograft and allograft. I was able place the guidewire into the trocar and into the vertebral body appropriately under C-arm guidance. Dissection was taken down over the wire to the appropriate starting position for the screw placed. The appropriate length screw was chosen, threaded over the guidewire and screwed appropriately into the pedicle and vertebral body under C-arm guidance in excellent alignment and position with good bony purchase. This is done at each of the screw sites at the appropriate levels bilaterally at L3 4 5 and S1. With the screws intact I extended the incision to connect the screw hole sites on the left side. I dissected down to establish access over the pars and lamina to the base of the spinous process. I was able to expose the facet joint. The capsule the facet was taken down and showed some facet arthrosis at the joint. I was able to use a combination of curettes and Kerrison rongeurs and a high- speed drill to take down the facet joint and do a facetectomy. Partial laminectomy was also performed. I was able get excellent foraminal decompression and central decompression with undermining across midline to perform a laminectomy centrally and contralaterally. As able get good central decompression. The ligamentum flavum was taken down to further decompress centrally and at bilateral neural foramen. I was able to expose the disc space and visualize the traversing nerve root. Note was made of some disc protrusion at the level causing further compression of the nerve root. I was able to establish a annulotomy at the appropriate level protecting soft tissue and neural structures. Note was made of some disc desiccation at the disc. I performed a complete discectomy with accommodation of curettes and rasps and scrapers. He had severe disc degeneration and essentially complete disc height loss and I was able to open up the space appropriately. There was very little disc material remaining at the inner body space. I was able to create space and prepare the endplates appropriately. I was able get good endplate preparation at the disc space. I sized for the appropriate size interbody spacer protecting the soft tissue and neural structures. The wound was copiously irrigated and suctioned dry. There is no evidence of any dural tear or leak. I was able to pack the disc space with local autogenous bone graft as well as a small amount of bone graft which was also placed into the interbody cage itself. Protecting the soft tissue structures and neural structures I was able place the interbody cage in good alignment and good position with good fit and fill at the interbody space. His issues was confirmed with C-arm guidance. This was done first at L5-S1 and then at L4 5. At L3 4 I decided to forego the interbody placement. I was able to perform a laminectomy decompression with foraminotomy at L3 4. I was still able perform posterior lateral fusion at L3 4. Good hemostasis maintained. There is no evidence of any dural tear or leak. The wound was irrigated and suctioned dry. With the hardware intact, intraoperative C-arm imaging was again taken which showed good alignment and position of the hardware at the appropriate levels from L3 to S1. We were then able to measure, contour and place the rods and appropriate hardware bilaterally. I was able to place capcrews, tighten them down, and torque them with the torque screwdriver appropriately. I had good reduction of the listhesis of L 5 S1. With this intact I was able to place the local autogenous bone graft with additional bone graft enhancer as necessary into the posterior lateral gutters over the decorticated transverse processes. The remainder of the bone graft was placed over the facet joint on the contralateral side after taking down the facet joint capsule. With the bone graft intact, a stable construct, and good decompression at the appropriate levels, we were able to proceed with closure. Good hemostasis was maintained. There is no evidence of dural tear or leak. The fascia was closed for a watertight closure. he subcuticular tissue was closed with absorbable suture. The wound was cleaned and dried and dressed with the appropriate dressing. The drapes were broken down. The patient was gently rolled back onto their hospital bed being careful to maintain their cervical spine and good neutral alignment and position. They were woken up by anesthesia, extubated, and brought to the recovery room in good stable condition. The patient will be admitted to the hospital for appropriate postoperative care, medical management and monitoring. We will continue to follow them closely about the postoperative course.
[2018-12-01] MEDS: HYDROmorphone 0.5 MG/0.5 ML SYRINGE IVP PRN ×4 (19:15→19:55)
[2018-12-01 19:28] LABS: Glucose,Whole Blood 78 mg/dL (75-99)
[2018-12-01 20:26] LABS: Glucose,Whole Blood 79 mg/dL (75-99)
--- NOTE | 2018-12-01 22:24 | FL ---
EXAMINATION TYPE: FL guidance operating room, XR lumbar spine 1V DATE OF EXAM: 12/01/2018 CLINICAL HISTORY: Low back pain. TECHNIQUE: Fluoroscopy. X-ray lumbar spine one view. COMPARISON: None. FINDINGS: Fluoroscopic guidance was provided during minimally invasive low back surgical procedure p erformed by Dr. Black. A total of 2 minutes 30 seconds of fluoroscopic time was utilized during the procedure and 4 spot intraoperative images are acquired. Intraoperative images acquired show placement of bilateral intrapedicular screws and rods from L3 thr ough S1 level. IMPRESSION: As Above.
[2018-12-01] MEDS: INSULIN ASPART (NovoLOG) 100 UNIT/ML VIAL SQ SCH (23:23)
[2018-12-01] MEDS: DONEPEZIL 10 MG TAB PO SCH (23:26)
[2018-12-01] MEDS: GABAPENTIN 400 MG CAP PO SCH (23:26)
[2018-12-01] MEDS: MEMANTINE 10 MG TAB PO SCH (23:26)
[2018-12-01] MEDS: ATORVASTATIN 80 MG TAB PO SCH (23:28)
[2018-12-01] MEDS: PRIMIDONE 250 MG TAB PO SCH (23:28)
[2018-12-01] MEDS: SODIUM CHLORIDE 0.9% 1,000 ML IV SCH (23:28)
[2018-12-01] MEDS: OXcarbazepine 300 MG TAB PO SCH (23:29)
[2018-12-01 23:32] LABS: Glucose,Whole Blood 84 mg/dL (75-99)
[2018-12-02] MEDS: HYDROmorphone 1 MG/ML 1 ML SYRINGE IVP PRN ×5 (00:52→22:03)
[2018-12-02] MEDS: ceFAZolin 3 GM in SODIUM CHLORIDE 0.9% 100 ML IVPB SCH ×2 (01:15→07:40)
[2018-12-02] MEDS: LACTATED RINGERS 1,000 ML IV SCH (02:01)
[2018-12-02 02:19] LABS: Glucose,Whole Blood 128 mg/dL (75-99)
[2018-12-02] MEDS: HYDROcodone/APAP 7.5-325MG 1 EACH TAB PO PRN ×3 (03:24→14:56)
[2018-12-02 07:12] LABS: Glucose,Whole Blood 195 mg/dL (75-99)
[2018-12-02] MEDS: ISOSORBIDE MONONITRATE ER 30 MG TAB.ER.24H PO SCH (07:39)
[2018-12-02] MEDS: SENNOSIDES-DOCUSATE SODIUM 1 EACH TAB PO SCH (07:39)
[2018-12-02] MEDS: PRASUGREL 10 MG TAB PO SCH (07:39)
[2018-12-02] MEDS: LOSARTAN 50 MG TAB PO SCH (07:39)
[2018-12-02] MEDS: MEMANTINE 10 MG TAB PO SCH ×2 (07:40→22:03)
[2018-12-02] MEDS: ASPIRIN 81 MG PO SCH (07:40)
[2018-12-02] MEDS: GABAPENTIN 400 MG CAP PO SCH ×2 (07:40→22:03)
[2018-12-02] MEDS: METOPROLOL TARTRATE 25 MG TAB PO SCH (07:40)
[2018-12-02] MEDS: INSULIN ASPART (NovoLOG) 100 UNIT/ML VIAL SQ SCH ×4 (07:40→20:39)
[2018-12-02] MEDS: MAGNESIUM OXIDE 400 MG TAB PO SCH (07:40)
[2018-12-02] MEDS: OXcarbazepine 300 MG TAB PO SCH ×2 (07:41→22:03)
[2018-12-02] MEDS: ESCITALOPRAM 10 MG TAB PO SCH (07:41)
[2018-12-02 07:59] LABS: Basophils % (A) 0 %; Eosinophils % (A) 0 %; HCT 38.8 % (39.0-53.0); HGB 12.8 gm/dL (13.0-17.5); Lymphocytes # (A) 0.4 k/uL (1.0-4.8); Lymphocytes % (A) 4 %; MCH 28.6 pg (25.0-35.0); MCV 86.5 fL (80.0-100.0); Mean Platelet Volume 7.8; Monocytes # (A) 0.6 k/uL (0-1.0); Monocytes % (A) 6 %; Neutrophils # (A) 8.6 k/uL (1.3-7.7); Neutrophils % (A) 89 %; Platelet Count 169 k/uL (150-450); RBC 4.48 m/uL (4.30-5.90); RDW 15.7 % (11.5-15.5); WBC 9.6 k/uL (3.8-10.6)
[2018-12-02 08:12] LABS: Calcium 8.4 mg/dL (8.4-10.2); Potassium 5.5 mmol/L (3.5-5.1)
[2018-12-02 12:10] LABS: Glucose,Whole Blood 273 mg/dL (75-99)
--- NOTE | 2018-12-02 12:30 | P.PN ---
Progress Note - Text Progress Note Date: 12/02/18 Orthopedic Spine Patient is a pleasant 68-year-old male who is seen and examined at the bedside following posterior lateral decompression and fusion performed yesterday. Patient states they are doing ok postsurgically. He has been able to transfer to the bedside chair with the assistance of therapy. He is currently eating. He does continue to have pain at the surgical sites. He is also experienced some pain in the right lower extremity. He has not been performing any active ambulation postoperatively. Currently does not complain of nausea, vomiting, fever, or chills. Patient states pain has been adequately controlled. Hernandez catheter continues to be intact. He did have some increased postoperative bleeding over the evening which was controlled with reinforcement of dressing. Patient has a history of hypertension, hyperlipidemia, diabetes type 1, unsteady gait, and prostate cancer. Physical Exam Lumbar Fusion: Status post surgical day number 1 Patient is awake, alert, and oriented 3 Vital signs stable Good chest excursion with deep inspiration and expiration Dorsiflexion, plantarflexion, and extensor hallucis longus positive sustained bilaterally No signs or symptoms of DVT; no calf pain; pneumatic cuffs intact bilateral lower extremities Dressing is is removed during physical examination Incision sites do not show any evidence of significant erythema, no sign of purulent discharge, and no sign of infection Dressing is reapplied with nonstick Telfa and Tegaderm Hernandez catheter intact Neurovascularly intact bilaterally lower extremities Assessment: L3-4, L4-5, and L5-S1 minimally invasive posterior lateral decompression and fusion with transforaminal lumbar interbody fusion at L4-5 and L5-S1 Low back pain Right lower extremity radiculopathy Lumbar and lumbosacral degenerative disc disease L5-S1 spondylolisthesis History of hypertension, hyperlipidemia, diabetes type 1, unsteady gait, and prostate cancer Plan: 1. Ambulate as tolerated; work with Physical Therapy to increase mobilization 2. Continue pain control with IV and oral medications 3. Dressing changed to Telfa and Tegaderm 4. We will plan to discontinue Hernandez catheter day 5. Patient may use a cooling machine with pad at his lumbar spine for comfort support as needed 6. Medical management can continue to manage patient for patient's other medical conditions including hypertension, hyperlipidemia, and diabetes type 1. 7. We will continue to follow the patient closely; we discussed based on the patient's progress over the last couple days, we'll plan for discharge home or a plan for discharge to a rehabilitation facility prior to returning home postoperatively 8. Patient can follow-up with David Ray PA-C or Dr. Jersey Black at [facility] in 2-3 weeks following discharge
[2018-12-02 15:29] LABS: Hemoglobin A1C 7.4 % (4.0-6.0)
[2018-12-02 16:46] LABS: Glucose,Whole Blood 341 mg/dL (75-99)
[2018-12-02 20:21] LABS: Glucose,Whole Blood 306 mg/dL (75-99)
[2018-12-02] MEDS: SODIUM CHLORIDE 0.9% 1,000 ML IV SCH ×3 (20:40→22:10)
[2018-12-02] MEDS: INSULIN DETEMIR (LEVEMIR) 100 UNIT/ML SYR SQ SCH (21:50)
[2018-12-02 21:58] LABS: Glucose,Whole Blood 295 mg/dL (75-99)
[2018-12-02] MEDS: ATORVASTATIN 80 MG TAB PO SCH (22:03)
[2018-12-02] MEDS: PRIMIDONE 250 MG TAB PO SCH (22:03)
[2018-12-02] MEDS: DONEPEZIL 10 MG TAB PO SCH (22:03)
--- NOTE | 2018-12-02 23:13 | CONS ---
CONSULTATION DATE OF SERVICE: 12/02/2018 I am covering for Dr. Gold. REASON FOR CONSULTATION: Advice regarding hypertension and hyperlipidemia requested by Dr. Black. HISTORY OF PRESENT ILLNESS: This 68-year-old gentleman with a past medical history of CVA, TIA, diabetes, hypertension, myocardial infarction, history of pneumonia, history of diabetes on insulin pump, being followed by Dr. Gold in the outpatient setting underwent laminectomy decompression, bilateral foraminectomy L3-4, L4-5, L5-S1 by Dr. Black. The patient is complaining of some pain. Otherwise, there is no history of fever, rigors or chills. No history of headache, loss of consciousness, chest pain, palpitations at this time. PAST MEDICAL HISTORY: CAD, history of chest pain, CVA, TIA, diabetes type 2, hypertension, hyperlipidemia, myocardial infarction, DJD, history pneumonia, history of insulin pump. MEDICATIONS: Prior to admission include home medications are: 1. Requip 0.5 mg p.o. b.i.d. 2. Demadex 5 mg daily p.r.n. 3. Mysoline 250 mg q.h.s. 4. Effient 10 mg p.o. daily. 5. Trileptal 300 mg p.o. b.i.d. 6. Nitrostat 0.4 mg p.r.n. 7. Lopressor 25 mg p.o. daily. 8. Namenda 10 mg p.o. b.i.d. 9. Antivert 25 mg p.o. t.i.d. p.r.n. 10.Magnesium oxide 400 mg p.o. daily. 11.Cozaar 50 mg p.o. daily. 12.Lactulose 10 mg p.o. daily p.r.n. 13.Lispro scale. 14.Crawford 7.5 p.o. b.i.d. 15.Gabapentin 400 mg p.o. b.i.d. 16.Lexapro 10 mg p.o. daily. 17.Drisdol 50,000 p.o. Saturday. 18.Aricept 10 mg p.o. q.h.s. 19.Flexeril 10 mg p.o. q.h.s. p.r.n. 20.Lipitor 80 mg q.h.s. 21.Aspirin 81 mg p.o. daily. ALLERGIES: None. FAMILY HISTORY: History of cancer in the family. SOCIAL HISTORY: Previous history of smoking. No history of current smoking. No alcohol intake. REVIEW OF SYSTEMS: ENT: No diminished vision. No diminished hearing. Cardiovascular: No angina or palpitations. Respiration: No cough or hemoptysis. GI no nausea or vomiting. no dysuria. Nervous System: As mentioned earlier. ALLERGIES/IMMUNOLOGY: No asthma or hayfever. MUSCULOSKELETAL: As mentioned earlier. HEMATOLOGY/ONCOLOGY: No history of anemia. ENDOCRINE: Diabetes. CONSTITUTIONAL: As mentioned earlier. DERMATOLOGY: Negative. RHEUMATOLOGY: Negative. PSYCHIATRY: As mentioned earlier. PHYSICAL EXAMINATION: Alert and oriented x3. The pulse is 90, blood pressure 122/78, respirations 18, temperature 97.4, pulse ox 94% on 2 L. HEENT: Conjunctivae normal. Oral mucosa moist. NECK is no jugular venous distention. No carotid bruit. No lymph node enlargement. CARDIOVASCULAR: S1, S2 muffled. RESPIRATORY: Breath sounds diminished in the bases. No rhonchi. No crackles. ABDOMEN: Soft, nontender. No mass palpable. Legs are no edema. No swelling. NERVOUS SYSTEM: Higher functions as mentioned earlier. Moves all 4 limbs. No focal motor or sensory deficits. LYMPHATICS: No lymph nodes palpable in the neck, axillae or groin. SKIN: No ulcer, rash or bleeding. JOINTS: No active deforming arthropathy. BACK: Status post surgery. LAB INVESTIGATION: At this time shows WBC 9.2, hemoglobin 12.8, sodium 130, potassium 5.2, creatinine is 1.94. Hemoglobin 7.4. ASSESSMENT: 1. Status post laminectomy decompression, bilateral foraminectomy, L3-4, L4-5, L5-S1 for severe spondylolisthesis and spinal stenosis. 2. Mild hyperkalemia. 3. Increased creatinine with chronic kidney stage 3 possibly. 4. Diabetes mellitus type 2 on insulin pump. 5. History of coronary artery disease/stent. 6. History of cerebrovascular accident/ transient ischemic attack. 7. Hypertension. 8. Hyperlipidemia. 9. History of myocardial infarction. 10.History of degenerative joint disease. 11.History of insulin pump. 12.History of seizure disorder. 13.History of peripheral neuropathy. 14.History of prostate cancer with radiation. 15.History of CVI. 16.History of degenerative joint disease. 17.History of hypertension. 18.History of motion sickness. 19.History of claustrophobia. 20.FULL CODE. RECOMMENDATIONS AND DISCUSSION: In this 68-year-old gentleman who presented with multiple complex medical issues. We will monitor the patient closely, continue the current medications, management and symptomatic treatment. Otherwise, resume the home medications. We will repeat potassium tomorrow. Low-potassium diet and if the potassium is elevated, Kayexalate may be given. Otherwise pain medications. DVT prophylaxis. Incentive spirometry. We will follow the patient closely. The prognosis guarded and I would also recommend the patient to follow with Dr. Cedric Gold in the outpatient setting after discharge. We will follow the patient closely with you. Thank you Dr. Black for the consultation. MMSTEVIEL / PRITIN: [id number] /
[2018-12-03] MEDS: HYDROcodone/APAP 7.5-325MG 1 EACH TAB PO PRN (01:54)
[2018-12-03] MEDS: LACTATED RINGERS 1,000 ML IV SCH (02:34)
[2018-12-03] MEDS: HYDROmorphone 1 MG/ML 1 ML SYRINGE IVP PRN ×4 (04:09→21:08)
[2018-12-03 07:00] LABS: Glucose,Whole Blood 303 mg/dL (75-99)
[2018-12-03] MEDS: SENNOSIDES-DOCUSATE SODIUM 1 EACH TAB PO SCH (07:20)
[2018-12-03] MEDS: MEMANTINE 10 MG TAB PO SCH ×2 (07:20→21:09)
[2018-12-03] MEDS: INSULIN ASPART (NovoLOG) 100 UNIT/ML VIAL SQ SCH ×6 (07:20→21:10)
[2018-12-03] MEDS: GABAPENTIN 400 MG CAP PO SCH ×2 (07:20→21:09)
[2018-12-03] MEDS: LOSARTAN 50 MG TAB PO SCH (07:20)
[2018-12-03] MEDS: OXcarbazepine 300 MG TAB PO SCH ×2 (07:21→21:09)
[2018-12-03] MEDS: MAGNESIUM OXIDE 400 MG TAB PO SCH (07:21)
[2018-12-03] MEDS: METOPROLOL TARTRATE 25 MG TAB PO SCH (07:21)
[2018-12-03] MEDS: ISOSORBIDE MONONITRATE ER 30 MG TAB.ER.24H PO SCH (07:21)
[2018-12-03] MEDS: PRASUGREL 10 MG TAB PO SCH (07:21)
[2018-12-03] MEDS: ESCITALOPRAM 10 MG TAB PO SCH (07:21)
[2018-12-03] MEDS: ASPIRIN 81 MG PO SCH (07:21)
[2018-12-03 08:37] LABS: Calcium 8.6 mg/dL (8.4-10.2); Potassium 4.7 mmol/L (3.5-5.1)
[2018-12-03 11:23] LABS: Glucose,Whole Blood 299 mg/dL (75-99)
[2018-12-03] MEDS ORDERED: INSULIN NPH 300 UNIT/3 ML VIAL SQ SCH (12:30)
--- NOTE | 2018-12-03 13:48 | P.PN ---
Progress Note - Text Progress Note Date: 12/03/18 Orthopedic Spine: Patient is a pleasant 68-year-old male who is seen and examined at the bedside following posterior lateral decompression and fusion performed yesterday. Patient states they are doing ok postsurgically. He continues to progress slowly postoperatively. He has been able to transfer to the bedside chair with the assistance of therapy. He has not been able to ambulate. He is requiring 4 person assist. He does continue to have pain at the surgical sites. He is also experienced some pain in the right lower extremity. He has not been performing any active ambulation postoperatively. Currently does not complain of nausea, vomiting, fever, or chills. Patient states pain has been adequately controlled. Hernandez catheter has been discontinued. He is been eating and voiding without difficulty. Patient has a history of hypertension, hyperlipidemia, diabetes type 1, unsteady gait, and prostate cancer. He has been seen by case management. We'll plan for discharge to [facility] rehabilitation facility at the time of discharge. Physical Exam Lumbar Fusion: Status post surgical day number 2 Patient is awake, alert, and oriented 3 Vital signs stable Good chest excursion with deep inspiration and expiration Abdomen is soft nontender Dorsiflexion, plantarflexion, and extensor hallucis longus positive sustained bilaterally No signs or symptoms of DVT; no calf pain; pneumatic cuffs intact bilateral lower extremities Dressing with nonstick Telfa and Tegaderm is intact Hernandez catheter has been discontinued Neurovascularly intact bilaterally lower extremities Assessment: L3-4, L4-5, and L5-S1 minimally invasive posterior lateral decompression and fusion with transforaminal lumbar interbody fusion at L4-5 and L5-S1 Low back pain Right lower extremity radiculopathy Lumbar and lumbosacral degenerative disc disease L5-S1 spondylolisthesis History of hypertension, hyperlipidemia, diabetes type 1, unsteady gait, and prostate cancer Plan: 1. Ambulate as tolerated; work with Physical Therapy to increase mobilization 2. Continue pain control with IV and oral medications 3. Dressing to remain intact with Telfa and Tegaderm 4. Patient may use a cooling machine with pad at his lumbar spine for comfort support as needed 5. He is encouraged to use his incentive spirometer 6. Medical management can continue to manage patient for patient's other medica l conditions including hypertension, hyperlipidemia, and diabetes type 1. 7. We will continue to follow the patient closely; patient has been progressing slowly postoperatively and we will plan for discharge to [facility] at the time of discharge most likely in the next 2-3 days 8. Patient can follow-up with David Ray PA-C or Dr. Jersey Black at [facility] in 2-3 weeks following discharge
[2018-12-03 16:17] LABS: Glucose,Whole Blood 286 mg/dL (75-99)
--- NOTE | 2018-12-03 18:13 | PN ---
PROGRESS NOTE DATE OF SERVICE: 12/03/2018. This 68-year-old gentleman who was admitted after back surgery is being closely monitored. The patient is slightly drowsy. Patient complains of generalized weakness and tiredness. PT/OT evaluated the patient for possibly ECF rehab. No chest pain. No palpitations. No fever. Orthopedics surgery is following the patient closely. PHYSICAL EXAM: Alert and oriented x3. Pulse 90, blood pressure 173/92, respirations 16, temperature 97.4, pulse ox 97% on 2 L. HEENT is conjunctivae normal. Neck is no jugular venous distention. CARDIOVASCULAR: S1, S2 muffled. RESPIRATIONS: Breath sounds diminished in the bases. Bilateral scattered rhonchi and crackles. ABDOMEN is soft, nontender. No mass palpable. LEGS: No edema. No swelling. BACK: Status post surgery. LAB STUDIES: Sodium 138. Creatinine is 1.59. ASSESSMENT: 1. Status post laminectomy decompression, bilateral foraminotomy L3-4, L4-5, L5-S1 for severe spondylosis and spinal stenosis. 2. Mild hyperkalemia. 3. Increased creatinine with chronic kidney stage 3 possibly. 4. Diabetes type 2 on Insulin pump. 5. History of coronary artery disease/ stent. 6. History of cerebrovascular accident, transient ischemic attack. 7. Hypertension. 8. Hyperlipidemia. 9. History of myocardial infarction. 10.History of degenerative joint disease. 11.History of insulin pump. 12.History of seizure disorder. 13.History of peripheral neuropathy. 14.History of prostate cancer with radiation. 15.History of cerebrovascular accident. 16.History of degenerative joint disease. 17.History of hypertension. 18.History of motion sickness. 19.History of claustrophobia. 20.FULL CODE. RECOMMENDATIONS AND DISCUSSION: Recommend to continue current medications, continue with monitoring, management and symptomatic treatment. Otherwise, at this time, we will monitor the patient closely. I would recommend long-acting insulin plus mealtime insulin plus scale because the feels like the patient is unable to manage the insulin pump at this time. We will continue to monitor. PT/OT evaluation, possible ECF rehab. Otherwise continue closely with Orthopedic surgery. Further recommendations to follow. MMODL / IJN: [id number] /
[2018-12-03 20:13] LABS: Glucose,Whole Blood 262 mg/dL (75-99)
[2018-12-03] MEDS: DONEPEZIL 10 MG TAB PO SCH (21:09)
[2018-12-03] MEDS: ATORVASTATIN 80 MG TAB PO SCH (21:09)
[2018-12-03] MEDS: INSULIN DETEMIR (LEVEMIR) 100 UNIT/ML SYR SQ SCH (21:09)
[2018-12-03] MEDS: PRIMIDONE 250 MG TAB PO SCH (21:10)
[2018-12-03] MEDS: SODIUM CHLORIDE 0.9% 1,000 ML IV SCH (21:10)
[2018-12-04] MEDS: SODIUM CHLORIDE 0.9% 1,000 ML IV SCH ×2 (01:36→17:05)
[2018-12-04] MEDS: HYDROmorphone 1 MG/ML 1 ML SYRINGE IVP PRN ×2 (01:37→05:58)
[2018-12-04] MEDS: HYDROcodone/APAP 7.5-325MG 1 EACH TAB PO PRN ×5 (03:45→23:30)
[2018-12-04] MEDS: LACTATED RINGERS 1,000 ML IV SCH (04:16)
[2018-12-04 06:53] LABS: Glucose,Whole Blood 209 mg/dL (75-99)
[2018-12-04] MEDS: GABAPENTIN 400 MG CAP PO SCH ×2 (07:19→21:09)
[2018-12-04] MEDS: PRASUGREL 10 MG TAB PO SCH (07:19)
[2018-12-04] MEDS: ASPIRIN 81 MG PO SCH (07:20)
[2018-12-04] MEDS: METOPROLOL TARTRATE 25 MG TAB PO SCH (07:20)
[2018-12-04] MEDS: MEMANTINE 10 MG TAB PO SCH ×2 (07:20→21:10)
[2018-12-04] MEDS: LOSARTAN 50 MG TAB PO SCH (07:20)
[2018-12-04] MEDS: MAGNESIUM OXIDE 400 MG TAB PO SCH (07:21)
[2018-12-04] MEDS: SENNOSIDES-DOCUSATE SODIUM 1 EACH TAB PO SCH (07:21)
[2018-12-04] MEDS: OXcarbazepine 300 MG TAB PO SCH ×2 (07:22→21:10)
[2018-12-04] MEDS: ESCITALOPRAM 10 MG TAB PO SCH (07:22)
[2018-12-04] MEDS: ISOSORBIDE MONONITRATE ER 30 MG TAB.ER.24H PO SCH (07:24)
[2018-12-04] MEDS: INSULIN ASPART (NovoLOG) 100 UNIT/ML VIAL SQ SCH ×7 (07:24→21:09)
--- NOTE | 2018-12-04 08:43 | P.PN ---
Progress Note - Text Progress Note Date: 12/04/18 Postoperative day #3 Patient is seen and examined today at bedside. The patient has some pain around the surgical site as expected but he says that his coming along somewhat. Pain is being controlled with medication. He denies nausea or vomiting. He says he is having great difficulty moving around. He has not yet had a bowel movement. He says he is passing gas. He denies any abdominal pain. He is tolerating his oral diet. He says he did get up with physical therapy yesterday. Physical Exam Afebrile with stable vital signs Abdomen is soft nontender. Chest has good excursion deep and space expiration The incision site is clean he had initial bloody drainage but this seems to be slowing down quite well. There is no active bleeding today.. No erythema there is no purulence. Extremities have not had neurologic change from prior to surgery. he has sustained dorsal flexion plantar flexion and EHL intact. Calves and thighs were soft nontender without evidence of DVT. Assessment/Plan Postoperative day #3 status post decompression and fusion L3 4 L4 5 L5-S1 for his spinal stenosis with degenerative disc disease and lower extremity radiculopathy and weakness Patient is progressing somewhat slowlyas expected from the surgery. he is having very difficult time preoperatively where he had very limited ambulation and severe deconditioning. Certainly this is affecting his recovery as he is doing quite slowly now. I tried to encourage him to perform further movement even while in bed with his arms and legs as I think this can help him in his overall energy level and motivation to move. We will continue to increase the patient's mobilization with therapy. ho pefully he will continue to mobilize and start to try to sit up on his own which she is still not yet doing. He should have his stool softeners for his encourage bowel movements We will continue pain control with oral or IV medications. We'll continue to follow patient closely. Hopefully he'll be okay for [facility] or [facility].
[2018-12-04 11:36] LABS: Glucose,Whole Blood 217 mg/dL (75-99)
--- NOTE | 2018-12-04 13:26 | PN ---
PROGRESS NOTE DATE OF SERVICE: 12/04/2018 This 68-year-old gentleman who was admitted after laminectomy and decompression, still has lot of pain. Patient also has significant difficulties in walking. Patient also slightly drowsy as well. PT, OT evaluating the patient, possible ECF rehab is also considered. Blood sugars are slightly elevated. No chest pain. No palpitations. No fever. PHYSICAL EXAMINATION: On exam, alert and oriented x3 the pulse is 98, blood pressure 190/123, improved to 141/81, respiration 20, temperature 97.9, pulse ox 97% on room air. HEENT: Conjunctivae nonicteric. NECK: No jugular venous distention. CARDIOVASCULAR: S1, S2 muffled. RESPIRATORY: Breath sounds diminished at the bases. A few scattered rhonchi and crackles. ABDOMEN: Soft, nontender. No mass palpable. LEGS: No edema. NERVOUS SYSTEM: Mild diffuse weakness. EXAMINATION OF BACK: Status post surgery. LAB INVESTIGATIONS: Accu-Cheks noted. Otherwise, WBC 9.6, hemoglobin 12.8, sodium 135, potassium 4.7. Creatinine is 1.59. ASSESSMENT: 1. Status post laminectomy and decompression, bilateral foraminotomy L3-4, L4-5, L5-S1 for severe spondylosis and spinal stenosis. 2. Mild hyperkalemia. 3. Increased creatinine with chronic kidney stage 3 possibly. 4. Diabetes type 2 on insulin pump. 5. History of coronary artery disease, stent. 6. History of cerebrovascular accident, transient ischemic attack. 7. Hypertension. 8. Hyperlipidemia. 9. History of myocardial infarction. 10.History of degenerative joint disease. 11.History of insulin pump. 12.History of seizure disorder. 13.History of peripheral neuropathy. 14.History of prostate cancer with radiation. 15.History of cerebrovascular accident. 16.History of degenerative joint disease. 17.History of hypertension. 18.History of motion sickness. 19.History of claustrophobia. 20.FULL CODE. RECOMMENDATIONS AND DISCUSSION: Recommend to continue the current medications, continue with monitoring and symptomatic treatment. Otherwise at this time I would recommend continue with incentive spirometry. Increase Lantus to 30 units at night and continue to monitor. Otherwise PT, OT evaluation and possibly ECF rehab. Closely follow with Orthopedic Surgery. Further recommendations to follow. MMODL / IJN: [id number] /
[2018-12-04 14:20] VITALS: BMI 37.3
[2018-12-04 16:31] LABS: Glucose,Whole Blood 214 mg/dL (75-99)
[2018-12-04 19:46] LABS: Glucose,Whole Blood 244 mg/dL (75-99)
[2018-12-04] MEDS ORDERED: INSULIN DETEMIR (LEVEMIR) 100 UNIT/ML SYR SQ SCH (21:00)
[2018-12-04] MEDS: ATORVASTATIN 80 MG TAB PO SCH (21:09)
[2018-12-04] MEDS: DONEPEZIL 10 MG TAB PO SCH (21:09)
[2018-12-04] MEDS: PRIMIDONE 250 MG TAB PO SCH (21:10)
[2018-12-05] MEDS: HYDROcodone/APAP 7.5-325MG 1 EACH TAB PO PRN ×2 (03:21→08:00)
[2018-12-05] MEDS: SODIUM CHLORIDE 0.9% 1,000 ML IV SCH (03:47)
[2018-12-05] MEDS: LACTATED RINGERS 1,000 ML IV SCH (04:59)
[2018-12-05 06:57] LABS: Glucose,Whole Blood 182 mg/dL (75-99)
[2018-12-05] MEDS: INSULIN ASPART (NovoLOG) 100 UNIT/ML VIAL SQ SCH ×7 (07:57→21:03)
[2018-12-05] MEDS: PRASUGREL 10 MG TAB PO SCH (07:58)
[2018-12-05] MEDS: OXcarbazepine 300 MG TAB PO SCH ×2 (07:59→21:07)
[2018-12-05] MEDS: MEMANTINE 10 MG TAB PO SCH ×2 (07:59→21:06)
[2018-12-05] MEDS: ASPIRIN 81 MG PO SCH (07:59)
[2018-12-05] MEDS: MAGNESIUM OXIDE 400 MG TAB PO SCH (07:59)
[2018-12-05] MEDS: METOPROLOL TARTRATE 25 MG TAB PO SCH ×2 (08:00→21:06)
[2018-12-05] MEDS: SENNOSIDES-DOCUSATE SODIUM 1 EACH TAB PO SCH (08:00)
[2018-12-05] MEDS: GABAPENTIN 400 MG CAP PO SCH ×2 (08:00→21:06)
[2018-12-05] MEDS: ESCITALOPRAM 10 MG TAB PO SCH (08:00)
[2018-12-05] MEDS: LOSARTAN 50 MG TAB PO SCH (08:00)
[2018-12-05] MEDS: ISOSORBIDE MONONITRATE ER 30 MG TAB.ER.24H PO SCH (08:03)
--- NOTE | 2018-12-05 08:34 | P.PN ---
Progress Note - Text Progress Note Date: 12/05/18 Orthopedic Spine: Patient is a pleasant 68-year-old male who is seen and examined at the bedside following posterior lateral decompression and fusion performed Saturday. Patient states they are doing ok postsurgically. He continues to progress significantly slowly postoperatively. He has been able to transfer to the bedside chair with the assistance of therapy. He still has not been able to ambulate. He is requiring 4 person assist. He does continue to have pain at the surgical sites. He continues to require IV and oral pain medications. He states his pain ranges from 5/10 up to 8/10. He has not been performing any active ambulation postoperatively. Currently does not complain of nausea, vomiting, fever, or chills. Patient states pain has been adequately controlled. Hernandez catheter has been discontinued. He is been eating and voiding without difficulty. Patient has a history of hypertension, hyperlipidemia, diabetes type 1, unsteady gait, and prostate cancer. He has been seen by case management. We'll plan for discharge to [facility] rehabilitation facility at the time of discharge. Physical Exam Lumbar Fusion: Status post surgical day number 4 Patient is awake, alert, and oriented 3 Vital signs stable Good chest excursion with deep inspiration and expiration Abdomen is soft nontender Dorsiflexion, plantarflexion, and extensor hallucis longus positive sustained bilaterally No signs or symptoms of DVT; no calf pain; pneumatic cuffs intact bilateral lower extremities Dressing is removed during physical examination; no active drainage; no obvious sign of infection; no dehiscence Dressing is reapplied with nonstick Telfa and Tegaderm is intact Hernandez catheter has been discontinued Neurovascularly intact bilaterally lower extremities Assessment: L3-4, L4-5, and L5-S1 minimally invasive posterior lateral decompression and fusion with transforaminal lumbar interbody fusion at L4-5 and L5-S1 Low back pain Right lower extremity radiculopathy Lumbar and lumbosacral degenerative disc disease L5-S1 spondylolisthesis History of hypertension, hyperlipidemia, diabetes type 1, unsteady gait, and prostate cancer Deconditioning Plan: 1. Ambulate as tolerated; work with Physical Therapy to increase mobilization 2. Continue pain control with IV and oral medications; we'll plan to wean the patient off of IV pain medications in anticipation for discharge to rehabilitation as early as tomorrow, 12/06/2018 3. Dressing has been removed and replaced with Telfa and Tegaderm 4. Patient may use a cooling machine with pad at his lumbar spine for comfort support as needed 5. He is encouraged to continue using his incentive spirometer 6. Medical management can continue to manage patient for patient's other medical conditions including hypertension, hyperlipidemia, and diabetes type 1; patient will need clearance from medical standpoint prior to discharge 7. We will continue to follow the patient closely; patient has been progressing slowly postoperatively and we will plan for discharge to [facility] at the time of discharge most likely 12/06/2018, or 12/08/2018 8. Patient can follow-up with David Ray PA-C or Dr. Jersey Black at [facility] in 2-3 weeks following discharge
[2018-12-05 11:44] LABS: Glucose,Whole Blood 261 mg/dL (75-99)
[2018-12-05] MEDS ORDERED: hydrALAZINE HCL 20 MG/ML 1 ML VIAL IVP PRN (13:01)
[2018-12-05] MEDS: HEPARIN SODIUM,PORCINE 5,000 UNIT/ML 1 ML VIAL SQ SCH ×2 (13:20→21:10)
--- NOTE | 2018-12-05 14:05 | PN ---
PROGRESS NOTE DATE OF SERVICE: 12/05/2018 This 68-year-old gentleman who was admitted after laminectomy and decompression, also has significant gait dysfunction. Patient also has severe pain also. The patient also has some change in mental status. Patient is slightly more confused at this time, especially towards the evening according to the staff. Orthopedics is following the patient closely. PAST MEDICAL HISTORY: Reviewed. REVIEW OF SYSTEMS: CARDIOVASCULAR SYSTEM: No angina. RESPIRATORY SYSTEM: Occasional cough. GI: No nausea. : No dysuria. NERVOUS SYSTEM: No numbness or weakness. MEDICATIONS: Current medications are reviewed include medications are: 1. Wickett 5 mg q.4 p.r.n. 2. Wickett 7.5 q.4 p.r.n. 3. Aspirin 81 mg daily. 4. Lipitor. 5. Cepacol. 6. Flexeril 10 mg p.r.n. 7. Aricept 10 mg p.o. q.h.s. 8. Lexapro 10 mg daily. 9. Lasix 10 mg p.o. daily. 10.Neurontin 400 mg p.o. b.i.d. 11.Dilaudid p.r.n. 0.5 and 1 mg. 12.NovoLog scale. 13.Levemir 35 units subcu q.h.s. 14.Imdur. 15.Cephulac. 16.Cozaar. 17.Milk of magnesia. 18.Magnesium oxide. 19.Antivert. 20.Namenda. 21.Lopressor 25 mg. 22.Nitrostat 0.4 sublingual p.r.n. 23.Zofran 4 mg p.r.n. 24.Trileptal 300 mg p.o. b.i.d. 25.Effient 10 mg p.o. daily. 26.Mysoline 250 mg q.h.s. 27.Requip 0.5 mg b.i.d. 28.Senokot S one p.o. daily. PHYSICAL EXAMINATION: Patient is arousable, oriented x3. Pulse is 80, blood pressure is 195/100, respiration 18, temperature 97.8, pulse ox 94% on 2 L. HEENT: Conjunctivae normal. Oral mucosa moist. Neck is no jugular venous distention. No carotid bruit. No lymph node enlargement. CARDIOVASCULAR: S1, S2 muffled. RESPIRATORY: Breath sounds diminished at the bases. A few rhonchi. No crackles. ABDOMEN: Soft, nontender. LEGS: No edema. No swelling. NERVOUS SYSTEM: No focal deficits. EXAMINATION OF THE BACK: Status post surgery. LAB INVESTIGATIONS: Lab investigations are at this time shows Accu-Cheks 182, 261. Creatinine is 1.59. Other labs are reviewed. ASSESSMENT: 1. Status post laminectomy and decompression, bilateral foraminotomy, L3-4, L4-5, L5- S1 for severe spondylosis and spinal stenosis. 2. Mild hyperkalemia. 3. Increased creatinine with chronic kidney disease stage 3 possibly. 4. Diabetes mellitus type 2 was on insulin pump, currently on insulin. The patient unable to self manage at this time. 5. Change in mental status possible acute delirium, medication induced, multifactorial. 6. History of coronary artery disease, stent. 7. History of cerebrovascular accident, transient ischemic attack. 8. Hypertension. 9. Hyperlipidemia. 10.History of myocardial infarction. 11.History of degenerative joint disease. 12.History of seizure disorder. 13.History of peripheral neuropathy. 14.History of prostate cancer with radiation. 15.History of cerebrovascular accident. 16.History of degenerative joint disease. 17.History of hypertension. 18.History of motion sickness. 19.History of claustrophobia. 20.FULL CODE. RECOMMENDATIONS AND DISCUSSION: In this 68-year-old gentleman who presented with multiple complex medical issues, we will monitor the patient closely. Continue the current medications, continue symptomatic treatment. At this time I recommend hold the pain medications. Otherwise, I would recommend resume the rest of medications and DVT prophylaxis. Closely follow with Orthopedic Surgery. Incentive spirometry. Possible ECF rehab. Guarded prognosis. Further recommendations to follow. See orders for details. MMODL / IJN: [id number] /
[2018-12-05] MEDS: ACETAMINOPHEN TAB 325 MG TAB PO PRN ×2 (14:24→21:10)
[2018-12-05] MEDS: cloNIDine HCL 0.1 MG TAB PO PRN (14:52)
[2018-12-05 17:06] LABS: Glucose,Whole Blood 213 mg/dL (75-99)
[2018-12-05 20:34] LABS: Glucose,Whole Blood 196 mg/dL (75-99)
[2018-12-05] MEDS: INSULIN DETEMIR (LEVEMIR) 100 UNIT/ML SYR SQ SCH (21:04)
[2018-12-05] MEDS: DONEPEZIL 10 MG TAB PO SCH (21:06)
[2018-12-05] MEDS: ATORVASTATIN 80 MG TAB PO SCH (21:06)
[2018-12-05] MEDS: PRIMIDONE 250 MG TAB PO SCH (21:07)
[2018-12-06] MEDS: cloNIDine HCL 0.1 MG TAB PO PRN ×3 (02:11→20:39)
[2018-12-06] MEDS: ACETAMINOPHEN TAB 325 MG TAB PO PRN ×3 (02:11→18:57)
[2018-12-06 06:44] LABS: Glucose,Whole Blood 152 mg/dL (75-99)
[2018-12-06] MEDS: INSULIN ASPART (NovoLOG) 100 UNIT/ML VIAL SQ SCH ×7 (07:02→20:38)
[2018-12-06 07:29] LABS: Basophils % (A) 1 %; Eosinophils # (A) 0.1 k/uL (0-0.7); Eosinophils % (A) 2 %; HCT 35.3 % (39.0-53.0); HGB 11.7 gm/dL (13.0-17.5); Lymphocytes # (A) 0.4 k/uL (1.0-4.8); Lymphocytes % (A) 6 %; MCH 28.5 pg (25.0-35.0); MCHC 33.1 g/dL (31.0-37.0); Monocytes # (A) 0.5 k/uL (0-1.0); Monocytes % (A) 8 %; Neutrophils # (A) 5.1 k/uL (1.3-7.7); Neutrophils % (A) 80 %; Platelet Count 229 k/uL (150-450); RBC 4.11 m/uL (4.30-5.90); RDW 14.9 % (11.5-15.5); WBC 6.3 k/uL (3.8-10.6)
[2018-12-06] MEDS: HEPARIN SODIUM,PORCINE 5,000 UNIT/ML 1 ML VIAL SQ SCH ×2 (07:33→20:39)
[2018-12-06 07:34] LABS: Calcium 9.3 mg/dL (8.4-10.2); Potassium 4.2 mmol/L (3.5-5.1)
[2018-12-06] MEDS: MEMANTINE 10 MG TAB PO SCH ×2 (07:34→20:39)
[2018-12-06] MEDS: GABAPENTIN 400 MG CAP PO SCH ×2 (07:34→20:39)
[2018-12-06] MEDS: SENNOSIDES-DOCUSATE SODIUM 1 EACH TAB PO SCH (07:34)
[2018-12-06] MEDS: MAGNESIUM OXIDE 400 MG TAB PO SCH (07:34)
[2018-12-06] MEDS: ASPIRIN 81 MG PO SCH (07:34)
[2018-12-06] MEDS: LOSARTAN 50 MG TAB PO SCH (07:34)
[2018-12-06] MEDS: ISOSORBIDE MONONITRATE ER 30 MG TAB.ER.24H PO SCH (07:34)
[2018-12-06] MEDS: OXcarbazepine 300 MG TAB PO SCH ×2 (07:35→20:40)
[2018-12-06] MEDS: PRASUGREL 10 MG TAB PO SCH (07:35)
[2018-12-06] MEDS: METOPROLOL TARTRATE 25 MG TAB PO SCH ×2 (07:35→20:39)
[2018-12-06] MEDS: ESCITALOPRAM 10 MG TAB PO SCH (07:35)
--- NOTE | 2018-12-06 11:25 | P.PN ---
Progress Note - Text Progress Note Date: 12/06/18 Orthopedic Spine: Patient is a pleasant 68-year-old male who is seen and examined at the bedside following posterior lateral decompression and fusion performed Saturday. Patient states they are doing ok postsurgically. He continues to progress significantly slowly postoperatively. He has been able to transfer to the bedside chair with the assistance of therapy. He still has not been able to ambulate. He is requiring 4 person assist. He does continue to have pain at the surgical sites. He continues to be significantly drowsy. IV narcotics have been discontinued. Oral narcotics are currently on hold. Currently patient is using Tylenol for pain control. He is also experiencing some delirium. He states his pain ranges from 5/10 up to 8/10. He has not been performing any active ambulation postoperatively. Currently does not complain of nausea, vomiting, fever, or chills. Patient states pain has been adequately controlled. Hernandez catheter has been discontinued. He is been eating and voiding without difficulty. Patient has a history of hypertension, hyperlipidemia, diabetes type 1, unsteady gait, and prostate cancer. He has been seen by case management. We'll plan for discharge to [facility] at the time of discharge. Physical Exam Lumbar Fusion: Status post surgical day number 5 Patient is significantly drowsy and difficult to keep engage in conversation Vital signs stable Good chest excursion with deep inspiration and expiration Abdomen is soft nontender Dorsiflexion, plantarflexion, and extensor hallucis longus positive sustained bilaterally No signs or symptoms of DVT; no calf pain; pneumatic cuffs intact bilateral lower extremities Dressing is removed during physical examination; no active drainage; no obvious sign of infection; no dehiscence Dressing is reapplied with nonstick Telfa and Tegaderm is intact Hernandez catheter has been discontinued Neurovascularly intact bilaterally lower extremities Assessment: L3-4, L4-5, and L5-S1 minimally invasive posterior lateral decompression and fusion with transforaminal lumbar interbody fusion at L4-5 and L5-S1 Low back pain Right lower extremity radiculopathy Lumbar and lumbosacral degenerative disc disease L5-S1 spondylolisthesis History of hypertension, hyperlipidemia, diabetes type 1, unsteady gait, and prostate cancer Deconditioning Delirium Difficult to arouse; lethargy Plan: 1. Ambulate as tolerated; work with Physical Therapy to increase mobilization 2. Continue pain control with Tylenol; currently discontinued IV narcotic pain medications per oral pain medications on hold due to his lethargic state and delirium 3. Dressing to remain intact with with Telfa and Tegaderm 4. Patient may use a cooling machine with pad at his lumbar spine for comfort support as needed 5. He is again encouraged to continue using his incentive spirometer 6. Medical management can continue to manage patient for patient's other medical conditions including delirium, hypertension, hyperlipidemia, and diabetes type 1; patient will need clearance from medical standpoint prior to discharge 7. We will continue to follow the patient closely; patient needs to progress sl owly postoperatively. Since being seen and examined yesterday he has been experiencing some delirium. He is also significantly lethargic and difficult to arouse. We have discontinued some of his narcotic pain medications and her holding his oral pain medications. He will need rehabilitation at discharge. We will plan to discharge to [facility] at the time of discharge most likely 12/08/2018, once cleared by medicine 8. Patient can follow-up with David Ray PA-C or Dr. Jersey Black at [facility] in 2-3 weeks following discharge
[2018-12-06 11:30] LABS: Glucose,Whole Blood 188 mg/dL (75-99)
[2018-12-06] MEDS: LACTULOSE 20 GM/30 ML CUP PO SCH ×2 (12:18→22:19)
--- NOTE | 2018-12-06 16:03 | PN ---
PROGRESS NOTE DATE OF SERVICE: 12/06/2018. This 68-year-old gentleman who was admitted after laminectomy decompression is being closely monitored. No chest pain. No palpitations. No fever. The patient is extremely drowsy at this time. The pain medication has been downgraded to Tylenol. PT/OT evaluation, possible ECF rehab. EXAM: Alert and oriented x2. Pulse 74, blood pressure 136/88, respirations 16, temperature 98.9, pulse ox 98% on room air. HEENT is conjunctivae are normal. NECK: No jugular venous distention. CARDIOVASCULAR: S1, S2 muffled. RESPIRATIONS: Breath sounds diminished in the bases. A few scattered rhonchi and crackles. ABDOMEN is soft, nontender. LEGS are no edema. No swelling. CENTRAL NERVOUS SYSTEM: No focal deficits. BACK: Status post surgery. LABS: WBC 6.2, hemoglobin 11.7, glucose 151, 188. ASSESSMENT: 1. Status post laminectomy decompression, bilateral foraminotomies, L3-4, L4-5, L5-S1 with severe spondylosis and spinal stenosis. 2. Mild hyperkalemia. 3. Increased creatinine with chronic kidney stage 3 possibly. 4. Diabetes type 2 on insulin pump, currently on insulin. The patient unable to self manage at this time. 5. Change in mental status with possible acute delirium, medication induced, multifactorial. 6. History of coronary artery disease/ stent. 7. History of cerebrovascular accident, transient ischemic attack. 8. Hypertension. 9. History of hyperlipidemia. 10.History of myocardial infarction. 11.History of degenerative joint disease. 12.History of seizure disorder. 13.History of peripheral neuropathy. 14.Prostate cancer with radiation. 15.History of cerebrovascular accident. 16.History of degenerative joint disease. 17.History of hypertension. 18.History of motion sickness. 19.History of claustrophobia. 20.Constipation. 21.FULL CODE. RECOMMENDATIONS AND DISCUSSION: Recommend to continue current medications, management and symptomatic treatment. Otherwise, at this time, I recommend lactulose and also cut down the narcotics at this time. We will continue to monitor. We will also check Neurontin levels at this time. Avoid IV pain medications. Closely follow with surgery. Further recommendations to follow. MMODL / IJN: [id number] /
[2018-12-06] MEDS: MULTIVITAMINS, THERA 1 EACH TAB PO SCH (16:05)
[2018-12-06 16:34] LABS: Glucose,Whole Blood 126 mg/dL (75-99)
[2018-12-06 20:24] LABS: Glucose,Whole Blood 167 mg/dL (75-99)
[2018-12-06] MEDS: ATORVASTATIN 80 MG TAB PO SCH (20:39)
[2018-12-06] MEDS: INSULIN DETEMIR (LEVEMIR) 100 UNIT/ML SYR SQ SCH (20:39)
[2018-12-06] MEDS: DONEPEZIL 10 MG TAB PO SCH (20:39)
[2018-12-06] MEDS: PRIMIDONE 250 MG TAB PO SCH (20:40)
[2018-12-07] MEDS: ACETAMINOPHEN TAB 325 MG TAB PO PRN ×2 (01:26→18:56)
[2018-12-07] MEDS: cloNIDine HCL 0.1 MG TAB PO PRN ×2 (04:06→18:56)
[2018-12-07 06:41] LABS: Glucose,Whole Blood 189 mg/dL (75-99)
[2018-12-07] MEDS: INSULIN ASPART (NovoLOG) 100 UNIT/ML VIAL SQ SCH ×7 (07:36→20:35)
[2018-12-07] MEDS: ASPIRIN 81 MG PO SCH (07:36)
[2018-12-07] MEDS: PRASUGREL 10 MG TAB PO SCH (07:37)
[2018-12-07] MEDS: ISOSORBIDE MONONITRATE ER 30 MG TAB.ER.24H PO SCH (07:37)
[2018-12-07] MEDS: MULTIVITAMINS, THERA 1 EACH TAB PO SCH (07:37)
[2018-12-07] MEDS: GABAPENTIN 400 MG CAP PO SCH (07:37)
[2018-12-07] MEDS: MAGNESIUM OXIDE 400 MG TAB PO SCH (07:37)
[2018-12-07] MEDS: METOPROLOL TARTRATE 25 MG TAB PO SCH ×2 (07:37→20:32)
[2018-12-07] MEDS: SENNOSIDES-DOCUSATE SODIUM 1 EACH TAB PO SCH (07:38)
[2018-12-07] MEDS: THIAMINE 100 MG TAB PO SCH (07:38)
[2018-12-07] MEDS: HEPARIN SODIUM,PORCINE 5,000 UNIT/ML 1 ML VIAL SQ SCH ×2 (07:38→20:35)
[2018-12-07] MEDS: MEMANTINE 10 MG TAB PO SCH ×2 (07:38→20:32)
[2018-12-07] MEDS: LOSARTAN 50 MG TAB PO SCH (07:38)
[2018-12-07] MEDS: FOLIC ACID 1 MG TAB PO SCH (07:38)
[2018-12-07] MEDS: OXcarbazepine 300 MG TAB PO SCH ×2 (07:39→20:32)
--- NOTE | 2018-12-07 09:34 | P.PN ---
Progress Note - Text Progress Note Date: 12/07/18 Postoperative day #6 Patient is seen and examined today at bedside. The patient has some pain around the surgical site as expected. Pain is being controlled with medication. He still gets quite tired when taking his medications and medicine service is looking into this. He feels that his back and his legs are doing better since his surgery and he has made some progress but he is still quite limited in his overall ability to mobilize. Physical Exam Afebrile with stable vital signs Abdomen is soft nontender. Chest has good excursion deep and space expiration The incision site is clean dry and intact. No erythema there is no purulence. There is no active drainage. Appears to be healing appropriately. Extremities have not had neurologic change from prior to surgery. He has improved motion in his lower extremities with sustained dorsal flexion plantar flexion the EHL intact. Calves and thighs were soft nontender without evidence of DVT. Assessment/Plan Postoperative day #6 status post minimally invasive decompression fusion L3 4 L4 5 L5-S1 for his spinal stenosis with lower extremity radiculopathy and back pain Generalized Deconditioning Patient is progressing somewhat slowly from the surgery. This is primarily due to his overall status with generalized deconditioning. Patient has a number of medical issues which are being followed closely with medicine service and he may need some adjustment of his medicine to make him less groggy after his medications. I think this could have some benefit for his mobilization and ability to participate in and therapy We will continue to increase the patient's mobilization with therapy. He should be okay for transfer to [facility] or rehab tomorrow. We will continue pain control with oral or IV medications. We'll continue to follow patient closely.
[2018-12-07 11:49] LABS: Glucose,Whole Blood 221 mg/dL (75-99)
[2018-12-07 16:54] LABS: Glucose,Whole Blood 134 mg/dL (75-99)
[2018-12-07 20:12] LABS: Glucose,Whole Blood 243 mg/dL (75-99)
--- NOTE | 2018-12-07 20:28 | PN ---
PROGRESS NOTE DATE OF SERVICE: 12/07/2018. This 68-year-old gentleman with a past medical history of multiple medical problems, admitted after laminectomy. The patient is still complaining of some back pain. Patient still has some change in mental status. The patient on multiple medications also as outpatient also. No chest pain. No palpitations. No fever. EXAM: Alert and oriented x2. Pulse 75. Blood pressure 130/70. Respiration 18, temperature 98.2, pulse ox 98% on 2 L. HEENT: Conjunctivae normal. NECK: No jugular venous distention. CARDIOVASCULAR: S1, S2 muffled. RESPIRATORY: Breath sounds diminished in the bases. Scattered rhonchi and crackles. ABDOMEN is soft. Nontender. LEGS: No edema. No swelling. CENTRAL NERVOUS SYSTEM: No focal deficits. LAB STUDIES: WBC 6.5, hemoglobin 11.7. Accu-Cheks 221. Creatinine is 1.11. ASSESSMENT: 1. Status post laminectomy decompression, bilateral foraminotomies, L3-4, L4-5, L5-S1 for severe spondylosis and spinal stenosis. 2. Mild hyperkalemia improved. 3. Increased creatinine with chronic kidney stage 3, possibly as a baseline. 4. Diabetes type 2 on insulin pump, currently on insulin. The patient unable to self medicated at this time. 5. Change in mental status possible acute delirium, medication induced multifactorial improving. 6. History of coronary artery disease stent. 7. History of cerebrovascular accident, transient ischemic attack. 8. Hypertension. 9. History of hyperlipidemia. 10.History of myocardial infarction. 11.History of degenerative joint disease. 12.History of seizure disorder. 13.History of peripheral neuropathy. 14.History of prostate cancer with radiation. 15.History of cerebrovascular accident. 16.History of degenerative joint disease. 17.History of hypertension. 18.History of motion sickness. 19.History of claustrophobia. 20.History of constipation. 21.FULL CODE. RECOMMENDATIONS AND DISCUSSION: In this 68-year-old gentleman who presented with multiple medical problems, we will monitor the patient closely. Continue the current medications, management and symptomatic treatment. Otherwise, at this time, I would recommend to adjust medications. PT/OT evaluation, possible ECF rehab. Discussed with the family. Further recommendations to follow. MMODL / IJN: [id number] /
[2018-12-07] MEDS: GABAPENTIN 100 MG CAP PO SCH (20:32)
[2018-12-07] MEDS: PRIMIDONE 250 MG TAB PO SCH (20:32)
[2018-12-07] MEDS: DONEPEZIL 10 MG TAB PO SCH (20:32)
[2018-12-07] MEDS: ATORVASTATIN 80 MG TAB PO SCH (20:32)
[2018-12-07] MEDS: INSULIN DETEMIR (LEVEMIR) 100 UNIT/ML SYR SQ SCH (20:44)
[2018-12-08] MEDS: ACETAMINOPHEN TAB 325 MG TAB PO PRN ×2 (00:23→05:28)
[2018-12-08] MEDS: cloNIDine HCL 0.1 MG TAB PO PRN ×2 (00:24→05:28)
[2018-12-08 06:58] LABS: Glucose,Whole Blood 151 mg/dL (75-99)
[2018-12-08] MEDS: PRASUGREL 10 MG TAB PO SCH (07:35)
[2018-12-08] MEDS: LOSARTAN 50 MG TAB PO SCH (07:35)
[2018-12-08] MEDS: ISOSORBIDE MONONITRATE ER 30 MG TAB.ER.24H PO SCH (07:37)
[2018-12-08] MEDS: MEMANTINE 10 MG TAB PO SCH (07:37)
[2018-12-08] MEDS: GABAPENTIN 100 MG CAP PO SCH (07:37)
[2018-12-08] MEDS: METOPROLOL TARTRATE 25 MG TAB PO SCH (07:37)
[2018-12-08] MEDS: MAGNESIUM OXIDE 400 MG TAB PO SCH (07:38)
[2018-12-08] MEDS: OXcarbazepine 300 MG TAB PO SCH (07:38)
[2018-12-08] MEDS: SENNOSIDES-DOCUSATE SODIUM 1 EACH TAB PO SCH (07:38)
[2018-12-08] MEDS: ASPIRIN 81 MG PO SCH (07:38)
[2018-12-08] MEDS: INSULIN ASPART (NovoLOG) 100 UNIT/ML VIAL SQ SCH ×4 (07:43→11:49)
[2018-12-08] MEDS: HEPARIN SODIUM,PORCINE 5,000 UNIT/ML 1 ML VIAL SQ SCH (07:44)
[2018-12-08 07:56] VITALS: BP 177/92; PULSE 80; RESP 16; TEMP 98.6
--- NOTE | 2018-12-08 08:49 | P.DS ---
Providers Date of admission: 12/01/18 11:18 Expected date of discharge: 12/08/18 Attending physician: Turner Black Consults: 12/01/18 18:44 Consult Physician Routine Consulting Provider: Evangelina Tripp Consult Reason/Comments: Medical management Do you want consulting provider notified?: Yes Primary care physician: Cedric Gold - Discharge Diagnosis(es) (1) Low back pain Current Visit: Yes Status: Acute (2) Radiculopathy with lower extremity symptoms Current Visit: Yes Status: Acute (3) Lumbar degenerative disc disease Current Visit: Yes Status: Acute (4) Lower extremity weakness Current Visit: Yes Status: Acute (5) Muscular deconditioning Current Visit: Yes Status: Acute (6) Diabetes mellitus type 1 Current Visit: Yes Status: Acute (7) History of prostate cancer Current Visit: Yes Status: Acute (8) Unsteady gait Current Visit: Yes Status: Acute (9) S/P lumbar fusion Current Visit: Yes Status: Acute (10) HTN (hypertension) Current Visit: No Status: Chronic (11) Hyperlipemia Current Visit: No Status: Chronic Hospital Course: This is a pleasant 68-year-old male who presented with lumbar spinal canal stenosis and degenerative disc disease at L3-4, L4-5, and L5-S1, low back pain with lower extremity radiculopathy and weakness, and L5-S1 spondylolisthesis who failed outpatient conservative therapy. He was admitted for an L3-4, L4-5, and L5-S1 minimally invasive posterior lateral decompression and fusion. Patient has been progressing significantly slowly postoperatively. He is known have significant deconditioning prior to surgical intervention. During his admission he has been experiencing some delirium and lethargy postoperatively. His IV and oral narcotic pain medications have been discontinued and his gabapentin dosing has been reduced. He has had some improvement in his alertness and orientation but does continue to fall sleep rather easily with conversation. Patient does feel he is ready for discharge today. He is eager to be discharged from the hospital. His pain continues to be present most significantly in the surgical sites but is controlled. He has been receiving Tylenol 650 mg 1 tab every 6 hours for pain control. He continues to be seen and examined by medicine who have been monitoring his medications. Patient does have a significant medical history which includes hypertension, hyperlipidemia, diabetes type 1, unsteady gait, and prostate cancer. Patient will be cleared for discharge once cleared by medicine. Condition on day of discharge is stable. Patient will be discharged to [facility]. Patient was cleared preoperatively for surgery by Dr. Gold. Patient currently denies any nausea, vomiting, fever, or chills. Patient is eating and voiding freely without difficulty. He has been able to have a bowel movement. Dressing remains clean, dry, intact at the surgical sites. Patient does not have to have a dressing intact over the surgical sites at this time. He may shower without a dressing intact. Patient should keep Steri-Strips intact and allow them to fall off naturally. Patient should refrain from driving until at least after their first follow-up appointment in the office. Patient should avoid excessive bending, lifting, and twisting; no lifting greater than 10 pounds. Given his difficulty with some delirium and lethargy postoperatively, narcotic pain medications have been discontinued. Pain has been controlled with Tylenol 650 mg. We will not plan to prescribe any narcotic pain medications at discharge. Given his significant medical history, we'll plan for medicine to complete his med rec prior to discharge to [facility]. Patient is clear for discharge from an orthopedic spine standpoint once cleared by medicine. Physical Exam on day of discharge: Status post surgical day number 7 Patient is more alert this morning and is able to actively engage in conversation Vital signs stable Good chest excursion with deep inspiration and expiration Abdomen is soft nontender Dorsiflexion, plantarflexion, and extensor hallucis longus positive sustained bilaterally No signs or symptoms of DVT; no calf pain; pneumatic cuffs intact bilateral lower extremities Dressing is clean, dry, and intact; no active drainage; no obvious sign of infection; no dehiscence Dressing remains intact with nonstick Telfa and Tegaderm is intact Hernandez catheter has been discontinued Neurovascularly intact bilaterally lower extremities Procedures: L3-4, L4-5, and L5-S1 minimally invasive posterior lateral decompression and fusion Patient Condition at Discharge: Stable Plan - Discharge Summary Discharge Rx Participant: No New Discharge Prescriptions: No Action Aspirin 81 mg PO DAILY Isosorbide Mononitrate ER [Imdur] 30 mg PO DAILY #30 tab.er.24h Losartan [Cozaar] 50 mg PO DAILY #30 tab Metoprolol Tartrate [Lopressor] 25 mg PO DAILY #30 tab Nitroglycerin Sl Tabs [Nitrostat] 0.4 mg SUBLINGUAL Q5M PRN #25 tab PRN Reason: Chest Pain Prasugrel [Effient] 10 mg PO DAILY #30 tab Gabapentin 400 mg PO BID rOPINIRole HCL [Requip] 0.5 mg PO BID INSULIN LISPRO (For Pump) [humaLOG (For Pump)] See Protocol SQ-PUMP CONTINUOUS Ergocalciferol [Vitamin D2 (DRISDOL)] 50,000 unit PO MO Memantine HCl [Namenda] 10 mg PO BID Cyclobenzaprine [Flexeril] 10 mg PO HS PRN PRN Reason: Muscle Spasm Atorvastatin Calcium [Lipitor] 80 mg PO HS Meclizine [Antivert] 25 mg PO TID PRN PRN Reason: Vertigo OXcarbazepine [Trileptal] 300 mg PO BID #60 tab Escitalopram [Lexapro] 10 mg PO DAILY Lactulose 10 gm PO DAILY PRN PRN Reason: Constipation Torsemide [Demadex] 5 mg PO DAILY PRN PRN Reason: Edema HYDROcodone/APAP 7.5-325MG [Whiting 7.5-325] 1 tab PO BID Magnesium Oxide 400 mg PO DAILY Primidone [Mysoline] 250 mg PO HS Donepezil HCl [Aricept] 10 mg PO HS Discharge Medication List Aspirin 81 mg PO DAILY 01/12/15 [History] Isosorbide Mononitrate ER [Imdur] 30 mg PO DAILY #30 tab.er.24h 01/17/15 [Rx] Losartan [Cozaar] 50 mg PO DAILY #30 tab 01/17/15 [Rx] Metoprolol Tartrate [Lopressor] 25 mg PO DAILY #30 tab 01/17/15 [Rx] Nitroglycerin Sl Tabs [Nitrostat] 0.4 mg SUBLINGUAL Q5M PRN #25 tab 01/17/15 [Rx] Prasugrel [Effient] 10 mg PO DAILY #30 tab 01/17/15 [Rx] Gabapentin 400 mg PO BID 04/18/16 [History] Atorvastatin Calcium [Lipitor] 80 mg PO HS 07/30/17 [History] Cyclobenzaprine [Flexeril] 10 mg PO HS PRN 07/30/17 [History] Ergocalciferol [Vitamin D2 (DRISDOL)] 50,000 unit PO MO 07/30/17 [History] INSULIN LISPRO (For Pump) [humaLOG (For Pump)] See Protocol SQ-PUMP CONTINUOUS 07/30/17 [History] Meclizine [Antivert] 25 mg PO TID PRN 07/30/17 [History] Memantine HCl [Namenda] 10 mg PO BID 07/30/17 [History] rOPINIRole HCL [Requip] 0.5 mg PO BID 07/30/17 [History] OXcarbazepine [Trileptal] 300 mg PO BID #60 tab 08/10/17 [Rx] Escitalopram [Lexapro] 10 mg PO DAILY 02/20/18 [History] Lactulose 10 gm PO DAILY PRN 02/20/18 [History] Torsemide [Demadex] 5 mg PO DAILY PRN 02/20/18 [History] HYDROcodone/APAP 7.5-325MG [Whiting 7.5-325] 1 tab PO BID 11/20/18 [History] Donepezil HCl [Aricept] 10 mg PO HS 12/01/18 [History] Magnesium Oxide 400 mg PO DAILY 12/01/18 [History] Primidone [Mysoline] 250 mg PO HS 12/01/18 [History] Follow up Appointment(s)/Referral(s): Cedric Gold DO [Primary Care Provider] - 1 Week David Ray PAC [PHYSICIAN MEDICAL PRACTICE ADMINISTRATOR] - 2 Weeks (Patient may follow-up with David Ray PA-C or Dr. Jersey Black at [facility] in 2-3 weeks following discharge. ) Activity/Diet/Wound Care/Special Instructions: 1. Patient may shower with with incision uncovered 2. Patient may use dry dressing over incision for comfort 3. Patient should keep Steri-Strips intact and allow them to fall off naturally. 4. Patient should refrain from driving until at least after their first follow- up appointment in the office. 5. Patient should avoid excessive bending, twisting, and lifting; no lifting greater than 10 pounds 6. Take medications as prescribed 7. Do not soak in tub Discharge Disposition: TRANSFER TO SNF/ECF
[2018-12-08 11:29] LABS: Glucose,Whole Blood 179 mg/dL (75-99)
[2018-12-08] MEDS: MULTIVITAMINS, THERA 1 EACH TAB PO SCH (11:45)
[2018-12-08] MEDS: FOLIC ACID 1 MG TAB PO SCH (11:46)
[2018-12-08] MEDS: THIAMINE 100 MG TAB PO SCH (11:46)
--- NOTE | 2018-12-08 12:08 | PN ---
PROGRESS NOTE DATE OF SERVICE: 12/08/2018 This 68-year-old gentleman with a past medical history of multiple medical problems had laminectomy and decompression. The patient postoperatively had significant issues with sedation. The patient is on multiple medication also. In the outpatient setting, Dr. Gold is following the patient as a primary physician and also patient is also seeing Dr. Alford for neurology issues and adjustment of medications. The patient also had multiple lab abnormalities, which is stable at this time. Another issue was diabetes mellitus, which the patient is being managed by pump at home, but apparently the patient is unable to manage it and the patient's family helps him to manage the diabetes. We started the patient on long-acting and short-acting boluses with some control which needs to be continued at the [facility] at this time. PAST MEDICAL HISTORY: Reviewed. REVIEW OF SYSTEMS: CARDIOVASCULAR SYSTEM: No angina. RESPIRATORY SYSTEM: As mentioned earlier. GI: As mentioned earlier. : No dysuria. NERVOUS SYSTEM: No numbness or weakness. MEDICATIONS: Current medications are reviewed and include: Tylenol, [place], aspirin, Lipitor, Cepacol, Catapres, Flexeril, Aricept, vitamin D2, folic acid, Lasix, Neurontin, heparin, Apresoline, Dilaudid, NovoLog. Levemir, Imdur, Cephulac, milk of magnesia, Antivert, Namenda, Lopressor, multivitamins, Zofran, Trileptal, Effient, Mysoline, Requip, Senokot-S, vitamin B1. The doses are reviewed. PHYSICAL EXAM: The patient is alert and oriented x3. Pulse 80, blood pressure 177/92, respirations 16, temperature 98.6, pulse ox 94% on room air. HEENT: Conjunctivae normal. Oral mucosa moist. NECK: No jugular venous distention. No carotid bruit. No lymph node enlargement. CARDIOVASCULAR: S1, S2 muffled. RESPIRATORY: Breath sounds diminished at the bases. A few scattered rhonchi and crackles. ABDOMEN: Soft, nontender. EXAMINATION OF BACK: Status post surgery. LEGS: No edema, no swelling. NERVOUS SYSTEM: Higher functions as mentioned earlier. Moves all 4 limbs. No focal deficits. LYMPHATICS: No lymphadenopathy of the neck, axillae or groin. SKIN: No ulcer, rash or bleeding. JOINTS: No active deforming arthropathy. LABS: The labs are WBC 6.3, hemoglobin 11.7. ASSESSMENT: 1. Status post laminectomy and decompression, bilateral foraminotomy, L3-4, L4- 5, L5- S1 for severe spondylosis and spinal stenosis. 2. Mild hyperkalemia, improved. 3. Increased creatinine with chronic kidney disease stage , possible as a baseline. 4. Diabetes mellitus type 2 on insulin pump, currently on insulin. The patient unable to self medicate and monitor at this time. 5. Change in mental status, possible acute delirium, medication induced, multifactorial improved. 6. History of coronary artery disease/stent. 7. History of cerebrovascular accident, transient ischemic attack. 8. Hypertension. 9. Hyperlipidemia. 10.History of myocardial infarction. 11.History of degenerative joint disease. 12.History of seizure disorder. 13.History of peripheral neuropathy. 14.History of prostate cancer with radiation. 15.History of cerebrovascular accident. 16.History of degenerative joint disease. 17.History hypertension. 18.History of motion sickness. 19.History of claustrophobia. 20.History of constipation. 21.FULL CODE. RECOMMENDATION: In this 68-year-old gentleman who presented with multiple complex medical issues. I would recommend to continue current medication. I would recommend close follow up with Dr. Gold after discharge from [facility]. The following medications are recommended in the F. Medications are: 1. Antivert 25 mg p.o. t.i.d. p.r.n. 2. Aspirin 81 mg p.o. daily. 3. Demadex 5 mg p.o. daily p.r.n. 4. Flexeril 10 mg q.h.s. p.r.n., hold if the patient drowsy. 5. Lactulose 10 grams daily p.r.n. 6. Lipitor 80 mg q.h.s. 7. Magnesium oxide 400 mg p.o. daily. 8. Namenda 10 mg p.o. b.i.d. 9. Vitamin D2; 50,000 p.o. Saturday. 10.Aricept 10 mg q.h.s. 11.Cozaar 50 mg p.o. daily. 12.Effient 10 mg p.o. daily. 13.Folic acid 1 mg p.o. daily. 14.Heparin 5,000 subcu b.i.d. until the patient is more ambulant. 15.Imdur 30 mg p.o. daily. 16.Levemir 35 units subcu q.h.s., to be adjusted according to the blood sugar . 17.Lopressor 25 mg p.o. b.i.d. 18.Milk of magnesia 2.4 grams daily p.r.n. 19.Multivitamins 1 p.o. daily. 20.Mysoline 250 mg p.o. q.h.s. 21.Neurontin 200 mg p.o. b.i.d. 22.Nitrostat 0.4 sublingual q.5 p.r.n. for pain. 23.[place] 5 mg q.4 p.r.n., hold if the patient is even slightly drowsy. 24.Accu-Cheks a.c. and at bedtime, NovoLog scale to be continued. 25.NovoLog 5 units a.c. t.i.d., hold if Accu-Cheks less than 120 plus scale. 26.Requip 0.5 mg p.o. b.i.d., hold if the patient drowsy. 27.Senokot-S 1 p.o. daily. 28.Trileptal 300 mg p.o. b.i.d., hold if the patient drowsy. 29.Tylenol 650 q.6 p.r.n. 30.Vitamin B1, 100 mg p.o. daily. [place] / PRITIN: [id number] / MTDD
--- NOTE | 2018-12-08 13:15 | CDI ---
Documentation Clarification Form Date: 12/08/2018 12:19:46 PM From: Barbra Hernandez RN CCDS Admit Date: 12/01/2018 11:18:00 AM Patient Name: Narayan Paez Visit Number: [id number] Discharge Date: ATTENTION: The Clinical Documentation Specialists (CDI) and [facility] Coding Staff appreciate your assistance in clarifying documentation. Please respond to the clarification below the line at the bottom and electronically sign. The CDI & [facility] Coding staff will review the response and follow-up if needed. Please note: Queries are made part of the Legal Health Record. If you have any questions, please contact the author of this message via ITS. Dr. Evangelina Tripp MD Delirium and Lethargy postoperatively, narcotic pain medications have been discontinued. In the Discharge Summary. History/Risk Factors: 68 year old male presents to [facility] for elective spinal surgery. Medical history of CAD, TIA, DM2; HTN , Clinical Indicators: Per the medical record the patient also has some change in mental status. Vital Signs: 177/88 77 98% 20 96% 2L Other Clinical Indicators: Treatment: Iv pain mediations were discontinued and Gabapentin has been reduced. Then Narcotic pain medications were discontinued and Tylenol was used as pain control. In your professional opinion, can you further specify the diagnosis oAcute Toxic Encephalopathy due to pain medications? oOther, please specify oUnable to determine (Last Revision: September 2017) None. see progress note MTDD
== END 2018-12-08 14:56 | DRG 454 ==
LOC: 2ORMAIN 11:18 → 4SSUR 19:05
PROVIDERS: ADMIT Orthopaedic Surgery Orthopaedic Surgery of the Spine; ATTEND Orthopaedic Surgery Orthopaedic Surgery of the Spine
PROC: 0SG0071 Fusion of Lumbar Vertebral Joint with Autologous Tissue Substitute, Posterior Approach, Posterior Column, Open Approach (ICD-10-PCS; 2018-12-01)
PROC: 0ST20ZZ Resection of Lumbar Vertebral Disc, Open Approach (ICD-10-PCS; 2018-12-01)
PROC: 0ST40ZZ Resection of Lumbosacral Disc, Open Approach (ICD-10-PCS; 2018-12-01)
PROC: 0SG30AJ Fusion of Lumbosacral Joint with Interbody Fusion Device, Posterior Approach, Anterior Column, Open Approach (ICD-10-PCS; 2018-12-01)
PROC: 0SG3071 Fusion of Lumbosacral Joint with Autologous Tissue Substitute, Posterior Approach, Posterior Column, Open Approach (ICD-10-PCS; 2018-12-01)
PROC: 00NY0ZZ Release Lumbar Spinal Cord, Open Approach (ICD-10-PCS; 2018-12-01)
PROC: 07DS3ZZ Extraction of Vertebral Bone Marrow, Percutaneous Approach (ICD-10-PCS; 2018-12-01)
PROC: 30233N0 Transfusion of Autologous Red Blood Cells into Peripheral Vein, Percutaneous Approach (ICD-10-PCS; 2018-12-01)
PROC: 0SG00AJ Fusion of Lumbar Vertebral Joint with Interbody Fusion Device, Posterior Approach, Anterior Column, Open Approach (ICD-10-PCS; principal; 2018-12-01 12:30)
DX: M48.061 Spinal stenosis, lumbar region without neurogenic claudication (principal); I69.351 Hemiplegia and hemiparesis following cerebral infarction affecting right dominant side; E10.22 Type 1 diabetes mellitus with diabetic chronic kidney disease; E10.42 Type 1 diabetes mellitus with diabetic polyneuropathy; M41.9 Scoliosis, unspecified; E87.5 Hyperkalemia; M51.16 Intervertebral disc disorders with radiculopathy, lumbar region; M43.17 Spondylolisthesis, lumbosacral region; M51.17 Intervertebral disc disorders with radiculopathy, lumbosacral region; M43.16 Spondylolisthesis, lumbar region; E78.5 Hyperlipidemia, unspecified; F40.240 Claustrophobia; G40.909 Epilepsy, unspecified, not intractable, without status epilepticus; I12.9 Hypertensive chronic kidney disease with stage 1 through stage 4 chronic kidney disease, or unspecified chronic kidney disease; I25.10 Atherosclerotic heart disease of native coronary artery without angina pectoris; I25.2 Old myocardial infarction; K59.00 Constipation, unspecified; N18.3 Chronic kidney disease, stage 3 (moderate); R26.81 Unsteadiness on feet; E78.00 Pure hypercholesterolemia, unspecified; R41.0 Disorientation, unspecified; T50.905A Adverse effect of unspecified drugs, medicaments and biological substances, initial encounter; E66.9 Obesity, unspecified; Z68.37 Body mass index [BMI] 37.0-37.9, adult; Z96.41 Presence of insulin pump (external) (internal); Z92.3 Personal history of irradiation; Z79.4 Long term (current) use of insulin; Z79.82 Long term (current) use of aspirin; Z79.899 Other long term (current) drug therapy; Z85.46 Personal history of malignant neoplasm of prostate; Z87.01 Personal history of pneumonia (recurrent); Z87.891 Personal history of nicotine dependence; Z95.5 Presence of coronary angioplasty implant and graft; Z80.9 Family history of malignant neoplasm, unspecified; Z83.3 Family history of diabetes mellitus; Z82.49 Family history of ischemic heart disease and other diseases of the circulatory system
CPT/HCPCS: 72020; 80048; 80171; 80183; 83036; 85025; 86850; 86900; 86901

== ENCOUNTER 2019-01-06 13:14 | Inpatient (IN) | payer MEDICARE ==
--- NOTE | 2019-01-06 13:23 | ED ---
Syncope HPI - General Stated Complaint: poss STEMI Time Seen by Provider: 01/06/19 13:14 Source: patient, RN notes reviewed - History of Present Illness Initial Comments: This is a 68-year-old male history of multiple medical issues including a recent back surgery with rehab who states he was eating lunch and then began to feel lightheaded with some visual changes and he passed out and awoke when the Ambulance was there he apparently became very diaphoretic pale unresponsive he denies any chest pain or palpitations or other symptoms. He did have an adequate Accu-Chek per paramedics. He was given IV fluids son in route he does feel improved he states. No other modifying factors at this time MD Complaint: almost passed out - Related Data Home Medications Medication Instructions Recorded Confirmed Aspirin 81 mg PO DAILY 01/12/15 01/06/19 Atorvastatin Calcium [Lipitor] 80 mg PO HS 07/30/17 01/06/19 Ergocalciferol [Vitamin D2 50,000 unit PO MO 07/30/17 01/06/19 (DRISDOL)] Memantine HCl [Namenda] 10 mg PO BID 07/30/17 01/06/19 Lactulose 10 gm PO DAILY PRN 02/20/18 01/06/19 Torsemide [Demadex] 5 mg PO DAILY PRN 02/20/18 01/06/19 Magnesium Oxide 400 mg PO DAILY 12/01/18 01/06/19 Escitalopram [Lexapro] 10 mg PO DAILY 01/06/19 01/06/19 Folic Acid 1 mg PO DAILY@1500 01/06/19 01/06/19 Gabapentin [Neurontin] 400 mg PO BID 01/06/19 01/06/19 HYDROcodone/APAP 5-325MG [[place] 1 tab PO Q4HR PRN 01/06/19 01/06/19 5-325] INSULIN LISPRO (For Pump) [humaLOG See Protocol SQ-PUMP CONTINUOUS 01/06/19 01/06/19 (For Pump)] Thiamine [Vitamin B-1] 100 mg PO DAILY@1500 01/06/19 01/06/19 rOPINIRole HCL [Requip] 0.25 mg PO BID 01/06/19 01/06/19 Previous Rx's Medication Instructions Recorded Isosorbide Mononitrate ER [Imdur] 30 mg PO DAILY #30 tab.er.24h 01/17/15 Losartan [Cozaar] 50 mg PO DAILY #30 tab 01/17/15 Nitroglycerin Sl Tabs [Nitrostat] 0.4 mg SUBLINGUAL Q5M PRN #25 tab 01/17/15 Prasugrel [Effient] 10 mg PO DAILY #30 tab 01/17/15 Donepezil [Aricept] 10 mg PO HS tab 12/08/18 Metoprolol Tartrate [Lopressor] 25 mg PO BID tab 12/08/18 OXcarbazepine [Trileptal] 300 mg PO BID #10 tab 12/08/18 Primidone [Mysoline] 250 mg PO HS #5 tab 12/08/18 Allergies Allergy/AdvReac Type Severity Reaction Status Date / Time No Known Allergies Allergy Verified 01/06/19 13:55 Review of Systems ROS Statement: Those systems with pertinent positive or pertinent negative responses have been documented in the HPI. ROS Other: All systems not noted in ROS Statement are negative. 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 Past Anesthesia/Blood Transfusion Reactions: Motion Sickness Additional Past Anesthesia/Blood Transfusion Reaction / Comment(s): CLAUSTERPHOBIC Date of Last Stent Placement:: 2014 Past Psychological History: No Psychological Hx Reported Additional Psychological History / Comment(s): PT LIVES AT HOME WITH HIS KWAN IS INDEPENDANT WITH HIS OWN CARE. USED TO WORK FOR [employer]., no home care services, has insulin pump/glucometer Smoking Status: Former smoker Past Alcohol Use History: None Reported Additional Past Alcohol Use History / Comment(s): STARTED SMOKING AROUND AGE 48(1998) SMOKE A PIPE OR CIGARS 2-3 times a week but quit 04/2016. Past Drug Use History: None Reported - Past Family History Father Family Medical History: Cancer Additional Family Medical History / Comment(s): FATHER HAD BLADDER CANCER AND OF THIS IN HIS 40'S Mother Family Medical History: Cancer, Dementia Additional Family Medical History / Comment(s): UTERINE CANCER. Mother of dementia at the age of 89yrs. General Exam - General Exam Comments Initial Comments: This is a well-developed well-nourished awake alert oriented 3 male General appearance: alert, in no apparent distress Head exam: Present: atraumatic, normocephalic, normal inspection Eye exam: Present: normal appearance, PERRL, EOMI. Absent: scleral icterus, conjunctival injection, periorbital swelling ENT exam: Present: normal exam, mucous membranes moist Neck exam: Present: normal inspection. Absent: tenderness, meningismus, lymphadenopathy Respiratory exam: Present: normal lung sounds bilaterally. Absent: respiratory distress, wheezes, rales, rhonchi, stridor Cardiovascular Exam: Present: regular rate, normal rhythm, normal heart sounds. Absent: systolic murmur, diastolic murmur, rubs, gallop, clicks GI/Abdominal exam: Present: soft, normal bowel sounds. Absent: distended, tenderness, guarding, rebound, rigid Extremities exam: Present: normal inspection, full ROM, normal capillary refill. Absent: tenderness, pedal edema, joint swelling, calf tenderness Back exam: Present: normal inspection Neurological exam: Present: alert, oriented X3, CN II-XII intact Psychiatric exam: Present: normal affect, normal mood Skin exam: Present: warm, dry, intact, pallor. Absent: rash Course Vital Signs 01/06/19 01/06/19 01/06/19 13:30 14:30 15:57 Temperature 98.1 F Pulse Rate 59 L 69 71 Respiratory 16 18 18 Rate Blood Pressure 126/60 128/68 148/77 O2 Sat by Pulse 96 98 98 Oximetry - Reevaluation(s) Reevaluation #1: 01/06/19 16:42 Reevaluation patient reveals in the awake alert oriented history he does not have any recall of the events prior to his arrival here. Per family he did have the episode he became pale and somewhat diaphoretic and unresponsive. EKG Findings - EKG Results: EKG: interpreted by GAUDENCIO, sinus rhythm (Says bradycardia 19042 QRS latter day 86 QT since QTC of/400 nonspecific inferior changes.) Medical Decision Making - Medical Decision Making The patient will be admitted for evaluation syncope. She demonstrates no evidence of neurological deficits. - Lab Data Result diagrams: 01/06/19 14:10 01/06/19 13:20 Lab Results 01/06/19 01/06/19 01/06/19 Range/Units 13:20 13:20 13:42 WBC (3.8-10.6) k/uL RBC (4.30-5.90) m/uL Hgb (13.0-17.5) gm/dL Hct (39.0-53.0) % MCV (80.0-100.0) fL MCH (25.0-35.0) pg MCHC (31.0-37.0) g/dL RDW (11.5-15.5) % Plt Count (150-450) k/uL Neutrophils % % Lymphocytes % % Monocytes % % Eosinophils % % Basophils % % Neutrophils # (1.3-7.7) k/uL Lymphocytes # (1.0-4.8) k/uL Monocytes # (0-1.0) k/uL Eosinophils # (0-0.7) k/uL Basophils # (0-0.2) k/uL Sodium 139 (137-145) mmol/L Potassium 4.4 (3.5-5.1) mmol/L Chloride 107 (98-107) mmol/L Carbon Dioxide 23 (22-30) mmol/L Anion Gap 9 mmol/L BUN 19 (9-20) mg/dL Creatinine 1.17 (0.66-1.25) mg/dL Est GFR (CKD-EPI)AfAm 74 (>60 ml/min/1.73 sqM) Est GFR (CKD-EPI)NonAf 64 (>60 ml/min/1.73 sqM) Glucose 139 H (74-99) mg/dL POC Glucose (mg/dL) 140 H (75-99) mg/dL POC Glu Sap Hana Architect ID Calcium 9.3 (8.4-10.2) mg/dL Magnesium 1.8 (1.6-2.3) mg/dL Total Bilirubin 0.5 (0.2-1.3) mg/dL AST 32 (17-59) U/L ALT 32 (21-72) U/L Alkaline Phosphatase 154 H (38-126) U/L Creatine Kinase 50 L (55-170) U/L Troponin I <0.012 (0.000-0.034) ng/mL NT-Pro-B Natriuret Pep pg/mL Total Protein 6.3 (6.3-8.2) g/dL Albumin 3.9 (3.5-5.0) g/dL 01/06/19 01/06/19 Range/Units 14:08 14:10 WBC 7.7 (3.8-10.6) k/uL RBC 4.26 L (4.30-5.90) m/uL Hgb 12.5 L (13.0-17.5) gm/dL Hct 37.0 L (39.0-53.0) % MCV 86.8 (80.0-100.0) fL MCH 29.2 (25.0-35.0) pg MCHC 33.7 (31.0-37.0) g/dL RDW 15.3 (11.5-15.5) % Plt Count 178 (150-450) k/uL Neutrophils % 85 % Lymphocytes % 6 % Monocytes % 6 % Eosinophils % 1 % Basophils % 0 % Neutrophils # 6.6 (1.3-7.7) k/uL Lymphocytes # 0.4 L (1.0-4.8) k/uL Monocytes # 0.5 (0-1.0) k/uL Eosinophils # 0.1 (0-0.7) k/uL Basophils # 0.0 (0-0.2) k/uL Sodium (137-145) mmol/L Potassium (3.5-5.1) mmol/L Chloride (98-107) mmol/L Carbon Dioxide (22-30) mmol/L Anion Gap mmol/L BUN (9-20) mg/dL Creatinine (0.66-1.25) mg/dL Est GFR (CKD-EPI)AfAm (>60 ml/min/1.73 sqM) Est GFR (CKD-EPI)NonAf (>60 ml/min/1.73 sqM) Glucose (74-99) mg/dL POC Glucose (mg/dL) (75-99) mg/dL POC Glu Sap Hana Architect ID Calcium (8.4-10.2) mg/dL Magnesium (1.6-2.3) mg/dL Total Bilirubin (0.2-1.3) mg/dL AST (17-59) U/L ALT (21-72) U/L Alkaline Phosphatase (38-126) U/L Creatine Kinase (55-170) U/L Troponin I (0.000-0.034) ng/mL NT-Pro-B Natriuret Pep 100 pg/mL Total Protein (6.3-8.2) g/dL Albumin (3.5-5.0) g/dL - Radiology Data Radiology results: report reviewed (I did review the imaging and report no acute findings.), image reviewed Disposition Clinical Impression: Syncope Disposition: ADMITTED IP TO THIS [facility] Condition: Fair Referrals: Cedric Gold DO [Primary Care Provider] - 1-2 days
[2019-01-06 13:43] LABS: Glucose,Whole Blood 140 mg/dL (75-99)
[2019-01-06 14:15] LABS: Albumin 3.9 g/dL (3.5-5.0); Calcium 9.3 mg/dL (8.4-10.2); Magnesium 1.8 mg/dL (1.6-2.3); Potassium 4.4 mmol/L (3.5-5.1); Total Bilirubin 0.5 mg/dL (0.2-1.3); Total Protein 6.3 g/dL (6.3-8.2)
--- NOTE | 2019-01-06 14:30 | XR ---
EXAMINATION TYPE: XR chest 1V portable DATE OF EXAM: 01/06/2019 Comparison: 09/30/2017 Clinical History: 68-year-old male with pain Findings: Heart mildly enlarged. Mild interstitial prominence. No consolidation or sizable effusion. Impression: 1. Mild cardiomegaly. 2. Chronic-appearing changes, possible bronchitis/asthma. No acute process otherwise seen.
[2019-01-06 15:01] LABS: Basophils % (A) 0 %; Eosinophils # (A) 0.1 k/uL (0-0.7); Eosinophils % (A) 1 %; HGB 12.5 gm/dL (13.0-17.5); Lymphocytes # (A) 0.4 k/uL (1.0-4.8); Lymphocytes % (A) 6 %; MCH 29.2 pg (25.0-35.0); MCHC 33.7 g/dL (31.0-37.0); MCV 86.8 fL (80.0-100.0); Mean Platelet Volume 6.9; Monocytes # (A) 0.5 k/uL (0-1.0); Monocytes % (A) 6 %; Neutrophils # (A) 6.6 k/uL (1.3-7.7); Neutrophils % (A) 85 %; Platelet Count 178 k/uL (150-450); RBC 4.26 m/uL (4.30-5.90); RDW 15.3 % (11.5-15.5); WBC 7.7 k/uL (3.8-10.6)
[2019-01-06] MEDS ORDERED: NALOXONE 0.4 MG/ML 1 ML VIAL IV PRN (16:45)
[2019-01-06] MEDS ORDERED: HYDROcodone/APAP 5-325MG 1 EACH TAB PO PRN (16:48)
[2019-01-06] MEDS ORDERED: NITROGLYCERIN SL TABS 0.4 MG TAB SUBLINGUAL PRN (16:48)
[2019-01-06] MEDS ORDERED: LACTULOSE 20 GM/30 ML CUP PO PRN (16:48)
[2019-01-06] MEDS ORDERED: TORSEMIDE 20 MG TAB PO PRN (16:48)
[2019-01-06] MEDS: INSULIN ASPART (NovoLOG) 100 UNIT/ML VIAL SQ SCH ×2 (17:50→22:44)
[2019-01-06 17:51] LABS: Glucose,Whole Blood 207 mg/dL (75-99)
--- NOTE | 2019-01-06 19:16 | P.CNNES ---
History of Present Illness Consult date: 01/06/19 Requesting physician: Clay Weeks Reason for Consult: Syncope Chief complaint: Possible seizure History of Present Illness: This is a 68 LH male h/o vascular dementia and possible seizure disorder who sees Dr. Dozier in outpatient neurology. In fact, he had an outpatient follow- up appointment with him today, but earlier in the day he had an episode when he suddenly felt warm and then lost consciousness. Family saw that his eyes were open but was staring blankly into space. He did not have any tonic-clonic or myoclonic activity, tongue biting or post-ictal confusion. He did have urinary i ncontinence. He has had numerous episodes of syncope vs seizure worked up in the past with MRI Brain and EEG. He is on 3 AEDs (OXC 300mg po bid, GBP 400mg po bid, primidone 250mg po qhs), though it is unclear if all of them are primarily used for seizure prevention. states that his OXC was once dosed at 600mg po bid that caused side effects, so it was gradually lowered to 300mg po bid. There were other recent adjustments of his other meds such as metoprolol and ropinirole as well. states that he did have tonic-clonic activity in the past, but not recently. He has urinary incontinence with some but not all of his episodes. He denies antecedent visual, auditory, olfactory, gustatory or visceral aura or prodrome. No tan vu. No repetitive behavior suspicious for automatism. He had one EEG back in 09/2017 that was obtained in the setting of AMS and was read as normal. He denies any current side effects with his AED regimen. He did recently undergo back surgery. Family recalls the surgeon putting in 8 screws at L3, L4 and L5. Patient c/o posterolateral numbness in the RLE. He did follow up with his surgeon who reportedly told him a nerve might have been touched during surgery and that he should expect the RLE neuro symptoms to resolve eventually. No other postoperative complications. Otherwise, the surgery itself was a huge success as his pain went from 12/10 to 0/10. Review of Systems I have performed a 14-point organ ROS with patient; pertinents are as per HPI. 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 Past Anesthesia/Blood Transfusion Reactions: Motion Sickness Additional Past Anesthesia/Blood Transfusion Reaction / Comment(s): CLAUSTERPHOBIC Date of Last Stent Placement:: 2014 Past Psychological History: No Psychological Hx Reported Additional Psychological History / Comment(s): PT LIVES AT HOME WITH HIS KWAN IS INDEPENDANT WITH HIS OWN CARE. USED TO WORK FOR [employer] no home care services, has insulin pump/glucometer Smoking Status: Former smoker Past Alcohol Use History: None Reported Additional Past Alcohol Use History / Comment(s): STARTED SMOKING AROUND AGE 48(1998) SMOKE A PIPE OR CIGARS 2-3 times a week but quit 04/2016. Past Drug Use History: None Reported - Past Family History Father Family Medical History: Cancer Additional Family Medical History / Comment(s): FATHER HAD BLADDER CANCER AND OF THIS IN HIS 40'S Mother Family Medical History: Cancer, Dementia Additional Family Medical History / Comment(s): UTERINE CANCER. Mother of dementia at the age of 89yrs. Medications and Allergies Home Medications Medication Instructions Recorded Confirmed Type Aspirin 81 mg PO DAILY 01/12/15 01/06/19 History Isosorbide Mononitrate ER [Imdur] 30 mg PO DAILY #30 tab.er.24h 01/17/15 01/06/19 Rx Losartan [Cozaar] 50 mg PO DAILY #30 tab 01/17/15 01/06/19 Rx Nitroglycerin Sl Tabs [Nitrostat] 0.4 mg SUBLINGUAL Q5M PRN #25 tab 01/17/15 01/06/19 Rx Prasugrel [Effient] 10 mg PO DAILY #30 tab 01/17/15 01/06/19 Rx Atorvastatin Calcium [Lipitor] 80 mg PO HS 07/30/17 01/06/19 History Ergocalciferol [Vitamin D2 50,000 unit PO MO 07/30/17 01/06/19 History (DRISDOL)] Memantine HCl [Namenda] 10 mg PO BID 07/30/17 01/06/19 History Lactulose 10 gm PO DAILY PRN 02/20/18 01/06/19 History Torsemide [Demadex] 5 mg PO DAILY PRN 02/20/18 01/06/19 History Magnesium Oxide 400 mg PO DAILY 12/01/18 01/06/19 History Donepezil [Aricept] 10 mg PO HS tab 12/08/18 01/06/19 Rx Metoprolol Tartrate [Lopressor] 25 mg PO BID tab 12/08/18 01/06/19 Rx OXcarbazepine [Trileptal] 300 mg PO BID #10 tab 12/08/18 01/06/19 Rx Primidone [Mysoline] 250 mg PO HS #5 tab 12/08/18 01/06/19 Rx Escitalopram [Lexapro] 10 mg PO DAILY 01/06/19 01/06/19 History Folic Acid 1 mg PO DAILY@1500 01/06/19 01/06/19 History Gabapentin [Neurontin] 400 mg PO BID 01/06/19 01/06/19 History HYDROcodone/APAP 5-325MG [[place] 1 tab PO Q4HR PRN 01/06/19 01/06/19 History 5-325] INSULIN LISPRO (For Pump) [humaLOG See Protocol SQ-PUMP CONTINUOUS 01/06/19 01/06/19 History (For Pump)] Thiamine [Vitamin B-1] 100 mg PO DAILY@1500 01/06/19 01/06/19 History rOPINIRole HCL [Requip] 0.25 mg PO BID 01/06/19 01/06/19 History Allergies Allergy/AdvReac Type Severity Reaction Status Date / Time No Known Allergies Allergy Verified 01/06/19 13:55 Physical Examination - Vital Signs Vital Signs: Vital Signs Temp Pulse Resp BP Pulse Ox 01/06/19 18:43 74 19 109/54 97 01/06/19 15:57 71 18 148/77 98 01/06/19 14:30 69 18 128/68 98 01/06/19 13:30 98.1 F 59 L 16 126/60 96 Intake and Output 01/06/19 01/06/19 01/06/19 06:59 14:59 22:59 Other: Weight 99.79 kg Gen NAD Pleasant and cooperative HEENT NCAT Sclera without icterus O/P clear Neck Supple No carotid bruit Cor RRR no m/r/g Lungs CTAB Abd Soft NTND +BS Ext Warm to touch No edema Neuro MS A+Ox2 Normal fluency Able to follow all commands Some perseveration with phonemic but not semantic paraphasia no echolalia or echopraxia, word salad or neologism CN PERRL VFF no APD EOMI no nystagmus or KATIE No facial asymmetry Masseter's symmetric Hearing intact to normal voice bilaterally Speech not dysarthric Equal elevation of palate Tongue midline Sym shrug and SCM bilaterally Motor Normal bulk/tone No pronator or tremors Strength 5/5 sym throughout Sens Diminished to posterior RLE to LT/temp SLR negative bilaterally No neglect or extinction Coord No dysmetria on FTN bilaterally Some sensory ataxia on HTS on the right DTRs 2+/4 sym throughout Toes downgoing bilaterally No clonus at achilles Gait Deferred Results - Laboratory Findings CBC and BMP: 01/06/19 14:10 01/06/19 13:20 Abnormal Lab Findings: Abnormal Labs 01/06/19 01/06/19 01/06/19 13:20 13:42 14:10 RBC 4.26 L Hgb 12.5 L Hct 37.0 L Lymphocytes # 0.4 L Glucose 139 H POC Glucose (mg/dL) 140 H Alkaline Phosphatase 154 H Creatine Kinase 50 L 01/06/19 17:45 RBC Hgb Hct Lymphocytes # Glucose POC Glucose (mg/dL) 207 H Alkaline Phosphatase Creatine Kinase - Diagnostic Findings Additional findings: EEG 10/02/17. No EPD. CT Head and C-spine wo ru 07/28/18. Nil acute. No ICH. No bony fracture. I have reviewed neuroimages myself. Assessment and Plan Assessment: Syncopal episode with elements concerning for complex partial seizure Vascular dementia, which can confound overall clinical symptoms/picture RLE numbness s/p lumbar surgery Plan: -Send AED levels -Check EEG -Patient reportedly already had MRI Brain as outpatient as part of his seizure work-up; will not repeat -CT Head wo cont from 07/2018 reviewed -Seizure precautions -He does not drive. Same common sense applies to engaging in any activity that may endanger patient and/or others should he have recurrent seizure activity. Patient voices understanding -Follow up with surgery for post-op care of his lumbar spine and other neuro concerns related to the above -d/w patient and family in detail. All questions answered. Thank you for this consultation. Please call with ?. Time with Patient: Greater than 30 (Time spent in direct patient care, greater than 50% of which was spent in [id number] counseling and coordination of care: 70 minutes.)
[2019-01-06 20:46] LABS: Appearance,Urine Clear (Clear); Bilirubin,Urine Negative (Negative); Blood,Urine Negative (Negative); Color,Urine Yellow; Glucose,Urine (UA) Negative (Negative); Ketones,Urine Negative (Negative); Leukocyte Esterase,Urine Negative (Negative); Nitrite,Urine Negative (Negative); PH, Urine 5.5 (5.0-8.0); Protein,Urine Negative (Negative); Specific Gravity,Urine 1.027 (1.001-1.035); Urobilinogen,Urine <2.0 mg/dL (<2.0)
[2019-01-06 22:00] LABS: Glucose,Whole Blood 136 mg/dL (75-99)
[2019-01-06] MEDS: METOPROLOL TARTRATE 25 MG TAB PO SCH (22:13)
[2019-01-06] MEDS: ATORVASTATIN 80 MG TAB PO SCH (22:13)
[2019-01-06] MEDS: MEMANTINE 5 MG TAB PO SCH (22:14)
[2019-01-06] MEDS: DONEPEZIL 10 MG TAB PO SCH (22:14)
[2019-01-06] MEDS: OXcarbazepine 300 MG TAB PO SCH (22:14)
[2019-01-06] MEDS: GABAPENTIN 400 MG CAP PO SCH (22:14)
[2019-01-06] MEDS: PRIMIDONE 250 MG TAB PO SCH (22:15)
[2019-01-06] MEDS: SODIUM CHLORIDE 0.9% 1,000 ML IV SCH (22:44)
[2019-01-07 06:37] LABS: Glucose,Whole Blood 163 mg/dL (75-99)
[2019-01-07] MEDS: INSULIN ASPART (NovoLOG) 100 UNIT/ML VIAL SQ SCH ×4 (06:46→21:50)
[2019-01-07 07:46] LABS: Basophils % (A) 0 %; Eosinophils # (A) 0.1 k/uL (0-0.7); Eosinophils % (A) 1 %; HCT 37.3 % (39.0-53.0); HGB 12.4 gm/dL (13.0-17.5); Lymphocytes # (A) 0.6 k/uL (1.0-4.8); Lymphocytes % (A) 9 %; MCH 29.1 pg (25.0-35.0); MCHC 33.2 g/dL (31.0-37.0); MCV 87.9 fL (80.0-100.0); Mean Platelet Volume 7.1; Monocytes # (A) 0.4 k/uL (0-1.0); Monocytes % (A) 6 %; Neutrophils # (A) 4.8 k/uL (1.3-7.7); Neutrophils % (A) 81 %; Platelet Count 179 k/uL (150-450); RBC 4.25 m/uL (4.30-5.90); RDW 15.1 % (11.5-15.5)
[2019-01-07 07:54] LABS: Calcium 9.3 mg/dL (8.4-10.2); Potassium 4.4 mmol/L (3.5-5.1)
[2019-01-07] MEDS: MEMANTINE 5 MG TAB PO SCH ×2 (08:35→20:37)
[2019-01-07] MEDS: LOSARTAN 50 MG TAB PO SCH (08:35)
[2019-01-07] MEDS: ASPIRIN 81 MG PO SCH (08:35)
[2019-01-07] MEDS: MAGNESIUM OXIDE 400 MG TAB PO SCH (08:35)
[2019-01-07] MEDS: GABAPENTIN 400 MG CAP PO SCH ×2 (08:35→20:38)
[2019-01-07] MEDS: ISOSORBIDE MONONITRATE ER 30 MG TAB.ER.24H PO SCH (08:35)
[2019-01-07] MEDS: THIAMINE 100 MG TAB PO SCH (08:35)
[2019-01-07] MEDS: METOPROLOL TARTRATE 25 MG TAB PO SCH ×2 (08:35→20:37)
[2019-01-07] MEDS: PRASUGREL 10 MG TAB PO SCH (08:35)
[2019-01-07] MEDS: OXcarbazepine 300 MG TAB PO SCH ×2 (08:35→20:38)
[2019-01-07] MEDS: ESCITALOPRAM 10 MG TAB PO SCH (08:35)
[2019-01-07] MEDS: FOLIC ACID 1 MG TAB PO SCH (08:35)
--- NOTE | 2019-01-07 10:30 | P.PN ---
Subjective Progress Note Date: 01/07/19 Principal diagnosis: Syncope, possible seizure No acute events O/N. Cardiology consult. No recurrent syncopal episode. EEG and TTE pending. Patient without new neuro c/o. Objective - Vital Signs Vital signs: Vital Signs Temp 98.1 F 01/07/19 08:30 Pulse 83 01/07/19 08:30 Resp 16 01/07/19 08:30 BP 152/94 01/07/19 08:30 Pulse Ox 94 L 01/07/19 08:30 Intake & Output 01/06/19 01/07/19 01/07/19 18:59 06:59 18:59 Intake Total 800 360 Balance 800 360 Weight 99.79 kg 112.7 kg Intake: Oral 800 360 Other: Voiding Method Toilet # Voids 1 - Exam Gen NAD Pleasant and cooperative MS A+Ox2 Normal fluency Able to follow all commands CN PERRL VFF no APD EOMI no nystagmus or KATIE No facial asymmetry Masseter's symmetric Hearing intact to normal voice bilaterally Speech not dysarthric Equal elevation of palate Tongue midline Sym shrug and SCM bilaterally Motor Normal bulk/tone No pronator or tremors Strength 5/5 sym throughout Sens Diminished to posterior RLE to LT/temp SLR negative bilaterally Coord Sensory ataxia on HTS on the right DTRs 2+/4 sym throughout Gait Deferred - Labs CBC & Chem 7: 01/07/19 07:02 01/07/19 07:02 Labs: Abnormal Lab Results - Last 24 Hours (Table) 01/06/19 01/06/19 01/06/19 Range/Units 13:20 13:42 14:10 RBC 4.26 L (4.30-5.90) m/uL Hgb 12.5 L (13.0-17.5) gm/dL Hct 37.0 L (39.0-53.0) % Lymphocytes # 0.4 L (1.0-4.8) k/uL Glucose 139 H (74-99) mg/dL POC Glucose (mg/dL) 140 H (75-99) mg/dL Alkaline Phosphatase 154 H (38-126) U/L Creatine Kinase 50 L (55-170) U/L 01/06/19 01/06/19 01/07/19 Range/Units 17:45 21:59 06:36 RBC (4.30-5.90) m/uL Hgb (13.0-17.5) gm/dL Hct (39.0-53.0) % Lymphocytes # (1.0-4.8) k/uL Glucose (74-99) mg/dL POC Glucose (mg/dL) 207 H 136 H 163 H (75-99) mg/dL Alkaline Phosphatase (38-126) U/L Creatine Kinase (55-170) U/L 01/07/19 01/07/19 Range/Units 07:02 07:02 RBC 4.25 L (4.30-5.90) m/uL Hgb 12.4 L (13.0-17.5) gm/dL Hct 37.3 L (39.0-53.0) % Lymphocytes # 0.6 L (1.0-4.8) k/uL Glucose 158 H (74-99) mg/dL POC Glucose (mg/dL) (75-99) mg/dL Alkaline Phosphatase (38-126) U/L Creatine Kinase (55-170) U/L Assessment and Plan Assessment: Syncopal episode with elements concerning for complex partial seizure Vascular dementia, which can confound overall clinical symptoms/picture RLE numbness s/p lumbar surgery Plan: -AED levels sent and are pending -Check EEG that will be done later today -Patient reportedly already had MRI Brain as outpatient as part of his seizure work-up; will not repeat -CT Head wo cont from 07/2018 reviewed -Seizure precautions -He does not drive. Same common sense applies to engaging in any activity that may endanger patient and/or others should he have recurrent seizure activity. Patient voices understanding -Follow up with surgery for post-op care of his lumbar spine and other neuro concerns related to the above -d/w patient in detail. All questions answered. Thank you again for this consultation. Please call with ?. Time with Patient: Less than 30 (Time spent in direct patient care, greater than 50% of which was spent in [id number] counseling and coordination of care: 25 minutes)
--- NOTE | 2019-01-07 10:31 | CONS ---
CONSULTATION CHIEF COMPLAINT: Syncope. Narayan is a 68-year-old gentleman with history of coronary artery disease, status post prior multivessel angioplasty, CVA, hypertension, dyslipidemia, diabetes, chronic back pain and CA prostate, who presents to hospital having had transient loss of consciousness. The patient states that he was sitting in a chair, became unresponsive and it is unclear if he also had seizures. The patient carries a history of seizure disorder and is on medications for the same. His daughter found that he was unresponsive, called EMS. By then he woke up and did not have any further episodes of loss of consciousness. At the time of my evaluation this morning, he is appearing comfortable at rest and did not have any further syncopal event and did not have significant tachy or bradyarrhythmias. PAST MEDICAL HISTORY: Significant for diabetes, neuropathy, chronic back pain, insulin-requiring diabetes, CAD, cataract surgery, colonoscopy, CA prostate. MEDICATIONS: Medications include aspirin, Lovaza, Imdur, Cozaar, Lopressor, Effient, hydrocodone, Mysoline, Lipitor, Flexeril, Aricept, insulin, Antivert, Namenda, and Requip. ALLERGIES: There are no known drug allergies. FAMILY HISTORY: Family history is negative for premature coronary artery disease. SOCIAL HISTORY: Social history is negative for current smoking, EtOH abuse, or drug abuse. REVIEW OF SYSTEMS: HEENT is unremarkable. CARDIAC: As described above. RESPIRATORY: As described above. GI: Negative. GENITOURINARY: Negative. ALLERGY/IMMUNOLOGY: Negative. SKIN: Negative. MUSCULOSKELETAL: Significant for arthritis. PSYCHOSOCIAL: Negative. ENDOCRINE: Negative. DERM: Negative. CONSTITUTIONAL: Negative. ONCOLOGICAL: Negative. GL ACCOUNTANT: Significant for syncope. PHYSICAL EXAMINATION: On exam, comfortable at rest. Vital signs are stable. There is no jugular venous distention. Carotid upstroke is normal. There is no bruit. Chest exam reveals good air entry bilaterally. Heart exam reveals first and second heart sounds. No gallop. Abdomen is soft, nontender. Examination of extremities did not reveal any edema. Peripheral pulses are palpable. GL ACCOUNTANT exam did not reveal focal neurological deficits. LABS: Labs showed that the hemoglobin is 12.4, potassium is 4.4. Creatinine is 1.2. EKG shows sinus bradycardia. ASSESSMENT: 1. Syncope probably due to underlying seizure disorder. 2. Coronary artery disease, status post prior multivessel angioplasty. 3. Hypertension. 4. Dyslipidemia. 5. Diabetes. PLAN: I will obtain a 2D echo to evaluate his LV function. Watch him on telemetry to rule out significant tachybrady arrhythmias. No further cardiac workup is needed at this time. [place] / SAHIL: [id number] /
[2019-01-07] MEDS: SODIUM CHLORIDE 0.9% 1,000 ML IV SCH (10:51)
[2019-01-07 12:04] LABS: Glucose,Whole Blood 225 mg/dL (75-99)
--- NOTE | 2019-01-07 16:13 | EEG ---
ELECTROENCEPHALOGRAM REPORT DATE OF TESTING: January 07, 2019. CLINICAL PROBLEM: Recurrent episodes of syncope versus seizure. The patient is on multiple anticonvulsants. MEDICATIONS: Demadex, thiamin, Requip, primidone, oxcarbazepine, gabapentin, Effient, metoprolol, Aricept, Namenda, Cozaar, lactulose, insulin, acetaminophen, Lexapro, vitamin D, isosorbide dinitrate, atorvastatin, aspirin. TYPE OF RECORDING: Bedside tracing using the 10-20 international electrode placement system. No sedation was given prior to the beginning of this recording. FINDINGS: At the beginning of this recording, there is generalized delta slowing. Shortly thereafter, there is spontaneous self arousal followed by appearance of a symmetric alpha rhythm posteriorly that attenuates on eye opening and returns upon eye closure. There are scattered EKG as well as EMG artifacts. Photic stimulation elicits a symmetric driving response. Hyperventilation is not performed in this recording. No definitive sleep architecture is seen. There is no background asymmetry, ictal, or interictal patterns appreciated. IMPRESSION: This is a normal awake/drowsy electroencephalogram without background asymmetry or epileptiform discharges. Clinical correlation is advised. [place] / PRITIN: [id number] / MTDD
[2019-01-07 16:56] LABS: Glucose,Whole Blood 163 mg/dL (75-99)
[2019-01-07] MEDS ORDERED: ACETAMINOPHEN TAB 500 MG TAB PO PRN (20:35)
[2019-01-07] MEDS: PRIMIDONE 250 MG TAB PO SCH (20:36)
[2019-01-07] MEDS: ATORVASTATIN 80 MG TAB PO SCH (20:36)
[2019-01-07] MEDS: DONEPEZIL 10 MG TAB PO SCH (20:37)
[2019-01-07 20:45] LABS: Glucose,Whole Blood 217 mg/dL (75-99)
--- NOTE | 2019-01-07 22:11 | P.HPIM ---
History of Present Illness H&P Date: 01/07/19 Mr. Hernandez is a pleasant 68-year-old white male who was admitted to the hospital after developing a syncopal episode he states his with family and daughter after dinner where they saw him sitting in a chair and apparently syncopal episode. He was out for approximately 2 minutes with the family called 911 and is subsequently transported to the hospital patient states she was very tired afterwards and developed urinary incontinence during this episode. He's had multiple problems with syncope in the past she's had seizure problems in the past seen by Dr. Alford of neurology. He's had previous CVA. Currently he denies any shortness of breath or chest pains denies any palpitations denies any dizziness. He's been having multiple orthopedic problems stemming from his lower extremities and his previous back surgery which included a stay at inpatient rehab. Review of Systems GENERAL: Patient denies fever. Denies chills. EYES: Denies blurred vision. Denies vision changes. Denies eye pain. EARS, NOSE, MOUTH, & THROAT: Denies headache. Denies sore throat. Denies ear pain. RESPIRATORY: Denies cough. Denies shortness of breath. Denies sputum production. Denies hemoptysis. CARDIOVASCULAR: Denies chest pain or pressure. Denies palpitations. Denies ar rhythmias. GASTROINTESTINAL: Denies abdominal pain. Denies diarrhea. Denies constipation. Denies nausea. Denies vomiting. Denies heartburn. Denies blood in the stool. GENITOURINARY: Denies urinary frequency. Denies burning. Denies dysuria. Denies cloudy urine. Denies blood in the urine. MUSCULOSKELETAL: Denies myalgias. Denies joint swelling. Denies decreased range of motion beyond patients baseline. INTEGUMENTARY: Denies pruitis. Denies rash. PSYCHIATRIC: Denies suicidal or homicial ideations. ENDOCRINE: Denies weight change. Denies polydipsia. Denies polyuria. HEMATOLOGIC: Denies bleeding disorders. Past Medical History Past Medical History: Coronary Artery Disease (CAD), Cancer, Chest Pain / Angina, CVA/TIA, Dementia, Diabetes Mellitus, Hyperlipidemia, Hypertension, Myocardial Infarction (AR), Osteoarthritis (OA), Pneumonia, Renal Disease, Skin Disorder Additional Past Medical History / Comment(s): Diabetes mellitus currently on insulin pump, seizure disorder, peripheral neuropathy, prostate cancer treated by radiation therapy, CVA back in April 2016 with right-sided weakness and facial droop, chronic back pain, L3 L4 L5 and S1 lumbosacral disease/fractures, nephrolithiasis, chronic renal failure, hypertension, hyperlipidemia, coronary artery disease Last Myocardial Infarction Date:: 2014 History of Any Multi-Drug Resistant Organisms: None Reported Past Surgical History: Back Surgery, Heart Catheterization With Stent Additional Past Surgical History / Comment(s): COLONOCOSPY, LUMBAR EPIDURAL INJ, total 4 cardiac stents (2010 1 stent and 2014 3 stents),juventino cataracts/lens implants, colonoscopy, gold seed implants for prostate cancer. back surgery (11/2018) Past Anesthesia/Blood Transfusion Reactions: Motion Sickness Additional Past Anesthesia/Blood Transfusion Reaction / Comment(s): CLAUSTERPHOBIC Date of Last Stent Placement:: 2014 Past Psychological History: No Psychological Hx Reported, Depression Additional Psychological History / Comment(s): PT LIVES AT HOME WITH HIS KWAN IS INDEPENDANT WITH HIS OWN CARE. USED TO WORK FOR [employer] no home care services, has insulin pump/glucometer Smoking Status: Former smoker Past Alcohol Use History: None Reported Additional Past Alcohol Use History / Comment(s): STARTED SMOKING AROUND AGE 48(1998) SMOKE A PIPE OR CIGARS 2-3 times a week but quit 04/2016. Past Drug Use History: None Reported - Past Family History Father Family Medical History: Cancer Additional Family Medical History / Comment(s): FATHER HAD BLADDER CANCER AND OF THIS IN HIS 40'S Mother Family Medical History: Cancer, Dementia Additional Family Medical History / Comment(s): UTERINE CANCER. Mother of dementia at the age of 89yrs. Medications and Allergies Home Medications Medication Instructions Recorded Confirmed Type Aspirin 81 mg PO DAILY 01/12/15 01/06/19 History Isosorbide Mononitrate ER [Imdur] 30 mg PO DAILY #30 tab.er.24h 01/17/15 01/06/19 Rx Losartan [Cozaar] 50 mg PO DAILY #30 tab 01/17/15 01/06/19 Rx Nitroglycerin Sl Tabs [Nitrostat] 0.4 mg SUBLINGUAL Q5M PRN #25 tab 01/17/15 01/06/19 Rx Prasugrel [Effient] 10 mg PO DAILY #30 tab 01/17/15 01/06/19 Rx Atorvastatin Calcium [Lipitor] 80 mg PO HS 07/30/17 01/06/19 History Ergocalciferol [Vitamin D2 50,000 unit PO MO 07/30/17 01/06/19 History (DRISDOL)] Memantine HCl [Namenda] 10 mg PO BID 07/30/17 01/06/19 History Lactulose 10 gm PO DAILY PRN 02/20/18 01/06/19 History Torsemide [Demadex] 5 mg PO DAILY PRN 02/20/18 01/06/19 History Magnesium Oxide 400 mg PO DAILY 12/01/18 01/06/19 History Donepezil [Aricept] 10 mg PO HS tab 12/08/18 01/06/19 Rx Metoprolol Tartrate [Lopressor] 25 mg PO BID tab 12/08/18 01/06/19 Rx OXcarbazepine [Trileptal] 300 mg PO BID #10 tab 12/08/18 01/06/19 Rx Primidone [Mysoline] 250 mg PO HS #5 tab 12/08/18 01/06/19 Rx Escitalopram [Lexapro] 10 mg PO DAILY 01/06/19 01/06/19 History Folic Acid 1 mg PO DAILY@1500 01/06/19 01/06/19 History Gabapentin [Neurontin] 400 mg PO BID 01/06/19 01/06/19 History HYDROcodone/APAP 5-325MG [[place] 1 tab PO Q4HR PRN 01/06/19 01/06/19 History 5-325] INSULIN LISPRO (For Pump) [humaLOG See Protocol SQ-PUMP CONTINUOUS 01/06/19 01/06/19 History (For Pump)] Thiamine [Vitamin B-1] 100 mg PO DAILY@1500 01/06/19 01/06/19 History rOPINIRole HCL [Requip] 0.25 mg PO BID 01/06/19 01/06/19 History Allergies Allergy/AdvReac Type Severity Reaction Status Date / Time No Known Allergies Allergy Verified 01/06/19 13:55 Physical Exam Osteopathic Statement: *. No significant issues noted on an osteopathic structural exam other than those noted in the History and Physical/Consult. Vitals: Vital Signs Temp Pulse Resp BP Pulse Ox 01/07/19 15:11 97.9 F 61 20 120/72 97 01/07/19 12:00 60 20 120/77 97 01/07/19 08:30 98.1 F 83 16 152/94 94 L 01/07/19 03:48 62 17 01/07/19 03:46 62 17 145/80 95 01/07/19 00:00 65 18 01/06/19 23:58 65 18 180/80 98 Intake and Output 01/07/19 01/07/19 01/07/19 06:59 14:59 22:59 Intake Total 400 720 360 Balance 400 720 360 Intake: Oral 400 720 360 Other: Voiding Method Toilet # Voids 1 2 Weight 112.7 kg GENERAL: This is a -year-old in no apparent distress at the time of examination. Pleasant and cooperative. HEENT: Head is atraumatic, normocephalic. Pupils are equal, round, and reactive to light. Sclerae anicteric. Conjunctivae are clear. Mucus membranes of the mouth are moist. Neck is supple. RESPIRATORY: Clear to auscultation. No wheezes, rales, or rhonchi. No use of accessory muscles. Patient maintaining oxygen saturation greater than 92%. No chest wall tenderness is noted on palpation or with deep breathing. CARDIOVASCULAR: Regular rate and rhythm. S1 and S2 noted. No systolic or diastolic murmur auscultated. No JVD noted. No S3 or S4 noted. GASTROINTESTINAL: No distention noted. Abdomen soft and round. Normal active bowel sounds auscultated x 4 quadrants. No pain or tenderness noted upon palpa tion. INTEGUMENTARY: No cyanosis. No jaundice. No rashes noted. No cellulitis noted. EXTREMITIES: 2+ peripheral pulses. No evidence of peripheral edema. No calf tenderness noted. NEUROLOGIC: Cranial nerves II-XII intact. PSYCHIATRIC: Awake, alert, and oriented X 3. Appropriate affect. Intact judgem ent and insight. Results CBC & Chem 7: 01/07/19 07:02 01/07/19 07:02 Labs: Abnormal Lab Results - Last 24 Hours (Table) 01/06/19 01/07/19 01/07/19 Range/Units 21:59 06:36 07:02 RBC 4.25 L (4.30-5.90) m/uL Hgb 12.4 L (13.0-17.5) gm/dL Hct 37.3 L (39.0-53.0) % Lymphocytes # 0.6 L (1.0-4.8) k/uL Glucose (74-99) mg/dL POC Glucose (mg/dL) 136 H 163 H (75-99) mg/dL 01/07/19 01/07/19 01/07/19 Range/Units 07:02 11:57 16:53 RBC (4.30-5.90) m/uL Hgb (13.0-17.5) gm/dL Hct (39.0-53.0) % Lymphocytes # (1.0-4.8) k/uL Glucose 158 H (74-99) mg/dL POC Glucose (mg/dL) 225 H 163 H (75-99) mg/dL 01/07/19 Range/Units 20:44 RBC (4.30-5.90) m/uL Hgb (13.0-17.5) gm/dL Hct (39.0-53.0) % Lymphocytes # (1.0-4.8) k/uL Glucose (74-99) mg/dL POC Glucose (mg/dL) 217 H (75-99) mg/dL Thrombosis Risk Factor Assmnt - Choose All That Apply Each Factor Represents 1 point: History of prior major surgery (<1month) Each Risk Factor Represents 2 Points: Age 61-74 years, Major surgery Each Risk Factor Represents 5 Points: Major surgery lasting over 3 hours Thrombosis Risk Factor Assessment Total Risk Factor Score: 10 Thrombosis Risk Factor Assessment Level: High Risk Assessment and Plan (1) Syncope Current Visit: Yes Status: Acute Code(s): R55 - SYNCOPE AND COLLAPSE SNOMED Code(s): 734833056 (2) Altered mental status Current Visit: No Status: Acute Code(s): R41.82 - ALTERED MENTAL STATUS, UNSPECIFIED SNOMED Code(s): 302269518 (3) Breakthrough seizure Current Visit: No Status: Acute Code(s): G40.919 - EPILEPSY, UNSP, INTRACTABLE, WITHOUT STATUS EPILEPTICUS SNOMED Code(s): 659395892 (4) CVA (cerebral vascular accident) Current Visit: No Status: Chronic Code(s): I63.9 - CEREBRAL INFARCTION, UNSPECIFIED SNOMED Code(s): 528676165 (5) CAD (coronary artery disease) Current Visit: No Status: Chronic Code(s): I25.10 - ATHSCL HEART DISEASE OF [place] CORONARY ARTERY W/O ANG PCTRS SNOMED Code(s): 68642575 (6) Diabetes Current Visit: No Status: Chronic Code(s): E11.9 - TYPE 2 DIABETES MELLITUS WITHOUT COMPLICATIONS SNOMED Code(s): 90901339 (7) HTN (hypertension) Current Visit: No Status: Chronic Code(s): I10 - ESSENTIAL (PRIMARY) HYPERTENSION SNOMED Code(s): 92558356 (8) Hyperlipemia Current Visit: No Status: Chronic Code(s): E78.5 - HYPERLIPIDEMIA, UNSPECIFIED SNOMED Code(s): 54791283 Plan: Patient will be admitted to the hospital also spine nerve neurology Dr. Callejas on the case. Full seizure workup. The workup in progress continue to follow patient's cardiovascular diabetes treatment.
[2019-01-08 06:19] LABS: Glucose,Whole Blood 172 mg/dL (75-99)
[2019-01-08] MEDS: INSULIN ASPART (NovoLOG) 100 UNIT/ML VIAL SQ SCH ×2 (06:53→12:16)
[2019-01-08 08:16] VITALS: RESP 20; TEMP 97.9
[2019-01-08] MEDS: FOLIC ACID 1 MG TAB PO SCH (09:11)
[2019-01-08] MEDS: MEMANTINE 5 MG TAB PO SCH (09:11)
[2019-01-08] MEDS: PRASUGREL 10 MG TAB PO SCH (09:11)
[2019-01-08] MEDS: OXcarbazepine 300 MG TAB PO SCH (09:12)
[2019-01-08] MEDS: ESCITALOPRAM 10 MG TAB PO SCH (09:12)
[2019-01-08] MEDS: LOSARTAN 50 MG TAB PO SCH (09:12)
[2019-01-08] MEDS: GABAPENTIN 400 MG CAP PO SCH (09:12)
[2019-01-08] MEDS: ISOSORBIDE MONONITRATE ER 30 MG TAB.ER.24H PO SCH (09:12)
[2019-01-08] MEDS: MAGNESIUM OXIDE 400 MG TAB PO SCH (09:12)
[2019-01-08] MEDS: THIAMINE 100 MG TAB PO SCH (09:12)
[2019-01-08] MEDS: ASPIRIN 81 MG PO SCH (09:12)
[2019-01-08] MEDS: METOPROLOL TARTRATE 25 MG TAB PO SCH (09:12)
--- NOTE | 2019-01-08 11:17 | ECHOF ---
Referral Reason:syncope MEASUREMENTS -------- HEIGHT: 177.8 cm WEIGHT: 112.5 kg BP: 145/80 RVIDd: 3.8 cm (< 3.3) IVSd: 1.6 cm (0.6 - 1.1) LVIDd: 3.8 cm (3.9 - 5.3) LVPWd: 1.5 cm (0.6 - 1.1) IVSs: 2.1 cm LVIDs: 2.0 cm LVPWs: 2.1 cm LAESV Index (A-L): 13.91 ml/m Ao Diam: 3.3 cm (2.0 - 3.7) AV Cusp: 1.4 cm (1.5 - 2.6) LA Diam: 3.8 cm (2.7 - 3.8) MV EXCURSION: 11.714 mm (> 18.000) MV EF SLOPE: 69 mm/s (70 - 150) EPSS: 0.6 cm MV E Omrgan: 0.94 m/s MV DecT: 201 ms MV A Morgan: 0.84 m/s MV E/A Ratio: 1.12 RAP: 5.00 mmHg RVSP: 11.33 mmHg FINDINGS -------- Sinus rhythm. This was a technically difficult study with suboptimal apical views. The left ventricular size is normal. There is moderate concentric left ventricular hypertrophy. O verall left ventricular systolic function is normal with, an EF between 55 - 60 %. The diastolic fi lling pattern is normal for the age of the patient 15.73. The right ventricle is normal in size. Normal LA size by volume 22+/-6 ml/m2. The right atrial size is normal. 5.0mg of Lumason was utilized for enhancement of images Interatrial and interventricular septum intact. There is mild aortic valve sclerosis. There is no evidence of aortic regurgitation. There is no e vidence of aortic stenosis. No mitral regurgitation. Mild tricuspid regurgitation present. There is no evidence of pulmonary hypertension. The right v entricular systolic pressure, as measured by Doppler, is 11.33mmHg. There is no pulmonic regurgitation present. The aortic root size is normal. IVC Not well visulized. Echo free space represents a pericardial fat pad. There is no pericardial effusion. CONCLUSIONS -------- 1. Sinus rhythm. 2. This was a technically difficult study with suboptimal apical views. 3. The left ventricular size is normal. 4. There is moderate concentric left ventricular hypertrophy. 5. Overall left ventricular systolic function is normal with, an EF between 55 - 60 %. 6. The diastolic filling pattern is normal for the age of the patient 15.73 7. The right ventricle is normal in size. 8. Normal LA size by volume 22+/-6 ml/m2. 9. The right atrial size is normal. 10. 5.0mg of Lumason was utilized for enhancement of images 11. Interatrial and interventricular septum intact. 12. There is mild aortic valve sclerosis. 13. There is no evidence of aortic regurgitation. 14. There is no evidence of aortic stenosis. 15. No mitral regurgitation. 16. Mild tricuspid regurgitation present. 17. There is no evidence of pulmonary hypertension. 18. The right ventricular systolic pressure, as measured by Doppler, is 11.33mmHg. 19. There is no pulmonic regurgitation present. 20. The aortic root size is normal. 21. IVC Not well visulized. 22. Echo free space represents a pericardial fat pad. 23. There is no pericardial effusion. FLOOR POLISHER: Laura Xie [facility]
[2019-01-08 12:01] VITALS: BP 143/82; PULSE 64
[2019-01-08 12:30] LABS: Glucose,Whole Blood 185 mg/dL (75-99)
--- NOTE | 2019-01-08 15:00 | P.PN ---
Subjective Progress Note Date: 01/08/19 This is a 60-year-old gentleman with known history of coronary artery disease status post multivessel angioplasty, CVA, hypertension, hyperlipidemia, diabetes, chronic back pain, cancer the prostate, who presents to the hospital after having a transient loss of consciousness. His daughter found him to be unresponsive and for this reason EMS was called. The patient was seen in consultation yesterday by Dr. Mendoza. Echocardiogram with Doppler study was performed which revealed a normal left ventricular systolic function. Blood pressure 142/80 with a heart rate in the 60s, 90% on room air. No tachycardia or bradycardia arrhythmias have been noted on the monitor. Objective - Vital Signs Vital signs: Vital Signs Temp 97.9 F 01/08/19 08:00 Pulse 64 01/08/19 11:56 Resp 20 01/08/19 11:56 BP 143/82 01/08/19 11:56 Pulse Ox 98 01/08/19 11:56 Intake & Output 01/07/19 01/08/19 01/08/19 18:59 06:59 18:59 Intake Total 1080 300 200 Balance 1080 300 200 Weight 110.9 kg Intake: Oral 1080 300 200 Other: # Voids 2 3 1 - Exam PHYSICAL EXAMINATION: GENERAL: 80-year-old gentleman in no acute distress at the time of my examination HEENT: Head is atraumatic, normocephalic. Pupils equal, round. Sclera anicteric. Conjunctiva are clear. Mucous membranes of the mouth are moist. Neck is supple. There is no elevated jugular venous pressure.] bruit is heard. HEART EXAMINATION: Heart S1, S2 normal. No murmur or gallop heard. CHEST EXAMINATION: Lungs are clear to auscultation and precussion. No chest wall tenderness is noted on palpation or with deep breathing. ABDOMEN: Soft, nontender. Bowel sounds are heard. No organomegaly noted. EXTREMITIES: 2+ peripheral pulses with no evidence of peripheral edema and no calf tenderness noted. NEUROLOGIC patient is awake, alert and oriented 3 . . - Labs CBC & Chem 7: 01/07/19 07:02 01/07/19 07:02 Labs: Abnormal Lab Results - Last 24 Hours (Table) 01/07/19 01/07/19 01/08/19 Range/Units 16:53 20:44 06:17 POC Glucose (mg/dL) 163 H 217 H 172 H (75-99) mg/dL 01/08/19 Range/Units 12:05 POC Glucose (mg/dL) 185 H (75-99) mg/dL Assessment and Plan Plan: Assessment and plan #1 syncope, likely secondary to underlying seizure disorder. No evidence of any tachycardia or bradycardia arrhythmias. #2 coronary artery disease with prior multivessel stenting #3 hyperlipidemia #4 hypertension #5 diabetes Echo cardiac gram with Doppler study was performed which revealed a normal left ventricular systolic function. From cardiology's perspective, if no difficulty in neurologic results to suggest syncope remain recommend patient have an event monitor on discharge. DNP note has been reviewed, I agree with a documented findings and plan of care. Patient was seen and examined.
--- NOTE | 2019-01-08 22:16 | P.DS ---
Providers Date of admission: 01/06/19 16:45 Expected date of discharge: 01/08/19 Attending physician: Cedric Gold Consults: 01/06/19 16:46 Consult Physician Routine Consulting Provider: Omkar Mendoza Consult Reason/Comments: Syncope Do you want consulting provider notified?: Yes 01/06/19 16:47 Consult Physician Routine Consulting Provider: Shae Callejas Consult Reason/Comments: Syncope Do you want consulting provider notified?: Yes Primary care physician: Cedric Gold - Discharge Diagnosis(es) (1) Syncope Status: Acute (2) Altered mental status Status: Acute (3) Breakthrough seizure Status: Acute (4) CVA (cerebral vascular accident) Status: Chronic (5) CAD (coronary artery disease) Status: Chronic (6) Diabetes Status: Chronic (7) HTN (hypertension) Status: Chronic (8) Hyperlipemia Status: Chronic Hospital Course: Status post 68-year-old white male who is admitted for partial complex seizure breakthrough. He currently follows with Dr. Alford for this condition. He was admitted and worked up by neurology. 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 He'll continue his home medications as outlined follow-ups as outlined Patient Condition at Discharge: Stable Plan - Discharge Summary Discharge Rx Participant: No New Discharge Prescriptions: Continue Aspirin 81 mg PO DAILY Isosorbide Mononitrate ER [Imdur] 30 mg PO DAILY #30 tab.er.24h Losartan [Cozaar] 50 mg PO DAILY #30 tab Nitroglycerin Sl Tabs [Nitrostat] 0.4 mg SUBLINGUAL Q5M PRN #25 tab PRN Reason: Chest Pain Prasugrel [Effient] 10 mg PO DAILY #30 tab Ergocalciferol [Vitamin D2 (DRISDOL)] 50,000 unit PO MO Memantine HCl [Namenda] 10 mg PO BID Atorvastatin Calcium [Lipitor] 80 mg PO HS Lactulose 10 gm PO DAILY PRN PRN Reason: Constipation Torsemide [Demadex] 5 mg PO DAILY PRN PRN Reason: Edema Magnesium Oxide 400 mg PO DAILY Donepezil [Aricept] 10 mg PO HS tab Metoprolol Tartrate [Lopressor] 25 mg PO BID tab Primidone [Mysoline] 250 mg PO HS #5 tab OXcarbazepine [Trileptal] 300 mg PO BID #10 tab INSULIN LISPRO (For Pump) [humaLOG (For Pump)] See Protocol SQ-PUMP CONTINUO US rOPINIRole HCL [Requip] 0.25 mg PO BID Thiamine [Vitamin B-1] 100 mg PO DAILY@1500 HYDROcodone/APAP 5-325MG [[place] 5-325] 1 tab PO Q4HR PRN PRN Reason: Moderate Pain Gabapentin [Neurontin] 400 mg PO BID Escitalopram [Lexapro] 10 mg PO DAILY Folic Acid 1 mg PO DAILY@1500 Discharge Medication List Aspirin 81 mg PO DAILY 01/12/15 [History] Isosorbide Mononitrate ER [Imdur] 30 mg PO DAILY #30 tab.er.24h 01/17/15 [Rx] Losartan [Cozaar] 50 mg PO DAILY #30 tab 01/17/15 [Rx] Nitroglycerin Sl Tabs [Nitrostat] 0.4 mg SUBLINGUAL Q5M PRN #25 tab 01/17/15 [Rx] Prasugrel [Effient] 10 mg PO DAILY #30 tab 01/17/15 [Rx] Atorvastatin Calcium [Lipitor] 80 mg PO HS 07/30/17 [History] Ergocalciferol [Vitamin D2 (DRISDOL)] 50,000 unit PO MO 07/30/17 [History] Memantine HCl [Namenda] 10 mg PO BID 07/30/17 [History] Lactulose 10 gm PO DAILY PRN 02/20/18 [History] Torsemide [Demadex] 5 mg PO DAILY PRN 02/20/18 [History] Magnesium Oxide 400 mg PO DAILY 12/01/18 [History] Donepezil [Aricept] 10 mg PO HS tab 12/08/18 [Rx] Metoprolol Tartrate [Lopressor] 25 mg PO BID tab 12/08/18 [Rx] OXcarbazepine [Trileptal] 300 mg PO BID #10 tab 12/08/18 [Rx] Primidone [Mysoline] 250 mg PO HS #5 tab 12/08/18 [Rx] Escitalopram [Lexapro] 10 mg PO DAILY 01/06/19 [History] Folic Acid 1 mg PO DAILY@1500 01/06/19 [History] Gabapentin [Neurontin] 400 mg PO BID 01/06/19 [History] HYDROcodone/APAP 5-325MG [[place] 5-325] 1 tab PO Q4HR PRN 01/06/19 [History] INSULIN LISPRO (For Pump) [humaLOG (For Pump)] See Protocol SQ-PUMP CONTINUOUS 01/06/19 [History] Thiamine [Vitamin B-1] 100 mg PO DAILY@1500 01/06/19 [History] rOPINIRole HCL [Requip] 0.25 mg PO BID 01/06/19 [History] Follow up Appointment(s)/Referral(s): Turner Black DO [Doctor of Osteopathic Medicine] - 01/27/19 1:45 pm (Please keep previous follow up appointment with Dr. Black.) Cedric Gold DO [Primary Care Provider] - 01/15/19 10:40 am [facility], [NON-STAFF] - Glo Alford MD [Family Provider] - 01/16/19 3:30 pm Mili Russo MD [STAFF PHYSICIAN] - 3 Days Mary Pickens MD [STAFF PHYSICIAN] - 01/19/19 4:00 pm Patient Instructions/Handouts: Heart Healthy Diet (DC), Syncope (DC), Epilepsy (DC) Activity/Diet/Wound Care/Special Instructions: Neurology and cardiology cleared for discharge. EEG sent to PCP and Dr. Alford. Seizure precautions No driving Discharge Disposition: HOME WITH HOME HEALTH SERVICES
[2019-01-12] MEDS ORDERED: ERGOCALCIFEROL 50,000 UNIT CAP PO SCH (09:00)
== END 2019-01-08 13:33 | disposition home health service (06) | DRG 101 ==
LOC: EC 13:14 → 3SCARD 16:45
PROVIDERS: ADMIT Family Medicine; ATTEND Family Medicine
DX: G40.209 Localization-related (focal) (partial) symptomatic epilepsy and epileptic syndromes with complex partial seizures, not intractable, without status epilepticus (principal); E11.42 Type 2 diabetes mellitus with diabetic polyneuropathy; F01.50 Vascular dementia, unspecified severity, without behavioral disturbance, psychotic disturbance, mood disturbance, and anxiety; E78.5 Hyperlipidemia, unspecified; I12.9 Hypertensive chronic kidney disease with stage 1 through stage 4 chronic kidney disease, or unspecified chronic kidney disease; I25.10 Atherosclerotic heart disease of native coronary artery without angina pectoris; I25.2 Old myocardial infarction; R32 Unspecified urinary incontinence; G89.29 Other chronic pain; M19.90 Unspecified osteoarthritis, unspecified site; M54.9 Dorsalgia, unspecified; R20.0 Anesthesia of skin; Z79.02 Long term (current) use of antithrombotics/antiplatelets; Z79.4 Long term (current) use of insulin; Z79.82 Long term (current) use of aspirin; Z79.899 Other long term (current) drug therapy; Z96.41 Presence of insulin pump (external) (internal); Z95.5 Presence of coronary angioplasty implant and graft; Z87.891 Personal history of nicotine dependence; Z87.442 Personal history of urinary calculi; Z86.73 Personal history of transient ischemic attack (TIA), and cerebral infarction without residual deficits; Z85.46 Personal history of malignant neoplasm of prostate; Z98.42 Cataract extraction status, left eye; Z98.41 Cataract extraction status, right eye; Z96.1 Presence of intraocular lens; Z80.52 Family history of malignant neoplasm of bladder; Z82.0 Family history of epilepsy and other diseases of the nervous system
CPT/HCPCS: 36415; 71045; 80048; 80053; 80183; 80188; 81003; 82550; 83735; 83880; 84484; 85025; 93005; 93306; 95819; 99285

== ENCOUNTER 2019-04-06 08:53 | Day surgery (SDC) | payer MEDICARE ==
[~2019-04-06 08:53] MED LIST changes: -BACITRACIN 50,000 UNIT, POLYMYXIN B 500,000 UNIT in SODIUM CHLORIDE 0.9% IRRIGATIO 1,00... IRRIGATION ONE; -DEXAMETHASONE SOD PHOSPHATE 10 MG/ML 1 ML VIAL IV ONE; -MIDAZOLAM 2 MG/2 ML VIAL IV PRN; -ONDANSETRON 4 MG/2 ML VIAL IVP ONE; +SODIUM CHLORIDE 0.9% 1,000 ML IV SCH; -ceFAZolin 3 GM in SODIUM CHLORIDE 0.9% 100 ML IVPB ONE
[2019-04-06 09:29] LABS: Glucose,Whole Blood 109 mg/dL (75-99)
[2019-04-06 09:31] VITALS: RESP 16; TEMP 97.9
[2019-04-06] MEDS ORDERED: SODIUM CHLORIDE 0.9% 500 ML 500 ML IV ONE (09:40)
[2019-04-06 11:01] VITALS: BP 132/87; PULSE 62
--- NOTE | 2019-04-06 18:28 | P.PCN ---
Preoperative Diagnosis: Diagnosis Recurrent syncope Twelve-lead ECG shows sinus rhythm normal RI narrow QRS normal ST segments and T waves no epsilon waves Tilt table test per protocol Baseline blood pressure 127/61 mmHg pulse rate in the 50s Patient was tilted upright at an angle of 70. Patient's blood pressure remained stable for the next 12-14 minutes. He remained asymptomatic. He was unable to tolerate standing because of the back surgeries had before He cannot stand for a prolonged period of time Impression Normal twelve-lead ECG Normal heart rate and blood pressure response to upright tilting for 12 minutes Patient cannot stand for longer than 12 minutes on the tilt table
== END 2019-04-06 11:17 | disposition home or self-care (01) ==
LOC: CATHEP 08:53
PROVIDERS: ATTEND Internal Medicine Clinical Cardiac Electrophysiology
DX: R55 Syncope and collapse (principal)
CPT/HCPCS: 93660

== ENCOUNTER 2019-04-30 09:33 | Emergency (ER) | payer MEDICARE ==
[2019-04-30] MEDS ORDERED: SODIUM CHLORIDE 0.9% 500 ML 500 ML IV STA (10:10)
[2019-04-30 10:15] LABS: Glucose,Whole Blood 82 mg/dL (75-99)
[2019-04-30] MEDS ORDERED: ASPIRIN 81 MG PO STA (10:20)
--- NOTE | 2019-04-30 10:20 | ED ---
General Adult HPI - General Chief complaint: Neuro Symptoms/Deficit Stated complaint: L Side Weakness Time Seen by Provider: 04/30/19 09:42 Source: patient, family Mode of arrival: wheelchair Limitations: no limitations - History of Present Illness Initial comments: Dictation was produced using [employer] dictation software. please excuse any grammatical, word or spelling errors. Chief Complaint: 68-year-old male brought in by for concerns of strokelike symptoms. History of Present Illness: A 68-year-old male he has past medical history of CVA, dyslipidemia and diabetes. Is brought in by for approximately 20 h ours of strokelike symptoms. Patient was observed to have left upper stranding weakness and left lower extremity weakness since yesterday at approximately 3 PM. Patient has a history of stroke prompting to bring patient to the emergency department today. Patient states that yesterday and today he felt like her left leg is weaker than usual. Patient has history of stroke with residual right-sided facial droop. Patient has at baseline intermittent episodes of altered mental status. He had an episode yesterday. Patient denies any numbness to her paresthesias to the extremities. reports that patient is currently at baseline. The ROS documented in this emergency department record has been reviewed and confirmed by me. Those systems with pertinent positive or negative responses have been documented in the HPI. All other systems are other negative and/or noncontributory. PHYSICAL EXAM: General Impression: Alert and oriented x3, not in acute distress HEENT: Normocephalic atraumatic, extra-ocular movements intact, pupils equal and reactive to light bilaterally, mucous membranes moist. Cardiovascular: Heart regular rate and rhythm, S1&S2 audible, no murmurs, rubs or gallops Chest: Lungs clear to auscultation bilaterally, no rhonchi, no wheeze, no rales Abdomen: Bowel sounds present, abdomen soft, non-tender, non-distended, no organomegaly Musculoskeletal: Pulses present and equal in all extremities, no peripheral edema Motor: no focal deficits noted Neurological: CN II-XII grossly intact, no focal motor or sensory deficits noted, no ataxia, no aphasia, no dysarthria Skin: Intact with no visualized rashes Psych: Normal affect and mood ED course: 68-year-old male with multiple comorbidities presents today with ongoing strokelike symptoms that appear to be episodic since yesterday at approximately 3 PM. Patient has history of stroke with residual right-sided facial droop. NIH upon initial arrival was 14 facial droop however patient chronically has his. His delta NIH is 0. Patient is not a candidate for TPA given duration of symptoms and normal delta NIH. Our facility. Patient was given aspirin for concerns of transient ischemic attack. Vital signs upon arrival are within acceptable limits.Laboratory evaluation obtained. CBC, coag panel, metabolic panel is unremarkable. Chest x-ray is not acute. Computed tomography scan of the brain shows findings suggestive of hydrocephalus or history was obtained from the patient and family member. He has been showing signs of ataxia, urinary incontinence and confusion. Local presentation is con [facility] for normal pressure hydrocephalus. Discussed with family these findings. We'll plan outpatient strip to [facility] for neurosurgical evaluation. Discussed patient case Dr. [facility] was willing to accept ER to ER transfer. EKG interpretation: Ventricular rate 60, normal sinus rhythm,. Interval 90, care is 86, QTC 408. No PA prolongation, no QTC prolongation, no ST or T-wave changes noted. EKG compared to 04/06/2019 showing no changes. Overall, this EKG is unremarkable - Related Data Home Medications Medication Instructions Recorded Confirmed Aspirin 81 mg PO DAILY 01/12/15 04/06/19 Atorvastatin Calcium [Lipitor] 80 mg PO HS 07/30/17 04/06/19 Ergocalciferol [Vitamin D2 50,000 unit PO MO 07/30/17 04/06/19 (DRISDOL)] Memantine HCl [Namenda] 10 mg PO BID 07/30/17 04/06/19 Lactulose 10 gm PO DAILY PRN 02/20/18 04/06/19 Torsemide [Demadex] 5 mg PO DAILY PRN 02/20/18 04/06/19 Magnesium Oxide 400 mg PO DAILY 12/01/18 04/06/19 Escitalopram [Lexapro] 10 mg PO QAM 01/06/19 04/06/19 Folic Acid 1 mg PO DAILY@1500 01/06/19 04/06/19 Gabapentin [Neurontin] 400 mg PO BID 01/06/19 04/06/19 HYDROcodone/APAP 5-325MG [[place] 1 tab PO Q4HR PRN 01/06/19 04/06/19 5-325] INSULIN LISPRO (For Pump) [humaLOG See Protocol SQ-PUMP CONTINUOUS 01/06/19 04/06/19 (For Pump)] Thiamine [Vitamin B-1] 100 mg PO DAILY@1500 01/06/19 04/06/19 rOPINIRole HCL [Requip] 0.25 mg PO BID 01/06/19 04/06/19 Isosorbide Mononitrate ER [Imdur] 30 mg PO QAM 04/02/19 04/06/19 Losartan [Cozaar] 50 mg PO QAM 04/02/19 04/06/19 Prasugrel [Effient] 10 mg PO QAM 04/02/19 04/06/19 Previous Rx's Medication Instructions Recorded Nitroglycerin Sl Tabs [Nitrostat] 0.4 mg SUBLINGUAL Q5M PRN #25 tab 01/17/15 Donepezil [Aricept] 10 mg PO HS tab 12/08/18 Metoprolol Tartrate [Lopressor] 25 mg PO BID tab 12/08/18 OXcarbazepine [Trileptal] 300 mg PO BID #10 tab 12/08/18 Primidone [Mysoline] 250 mg PO HS #5 tab 12/08/18 Allergies Allergy/AdvReac Type Severity Reaction Status Date / Time No Known Allergies Allergy Verified 04/30/19 09:36 Review of Systems ROS Statement: Those systems with pertinent positive or pertinent negative responses have been documented in the HPI. ROS Other: All systems not noted in ROS Statement are negative. Past Medical History Past Medical History: Coronary Artery Disease (CAD), Cancer, Chest Pain / Angina, CVA/TIA, Dementia, Diabetes Mellitus, Hyperlipidemia, Hypertension, Myocardial Infarction ([place]), Osteoarthritis (OA), Pneumonia, Renal Disease, Skin Disorder Additional Past Medical History / Comment(s): SEE DR BLEVINS'S NOTE FOR CARDIAC HX. HX OF SYNCOPAL EPISODES OF UNKNOWN CAUSE. Diabetes mellitus currently on insulin pump. SHORT TERM MEMORY LOSS. 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 COLONOCOSPY, LUMBAR EPIDURAL INJ, total 4 cardiac stents (2010 1 stent and 2014 3 stents),ju[place]ino cataracts/lens implants, colonoscopy, gold seed implants for prostate cancer. back surgery (11/2018) Past Anesthesia/Blood Transfusion Reactions: Motion Sickness Additional Past Anesthesia/Blood Transfusion Reaction / Comment(s): CLAUSTROPHOBIC Date of Last Stent Placement:: 2014 Past Psychological History: No Psychological Hx Reported, Depression Smoking Status: Former smoker Past Alcohol Use History: None Reported Past Drug Use History: None Reported - Past Family History Father Family Medical History: Cancer Additional Family Medical History / Comment(s): FATHER HAD BLADDER CANCER AND OF THIS IN HIS 40'S Mother Family Medical History: Cancer, Dementia Additional Family Medical History / Comment(s): UTERINE CANCER. Mother of dementia at the age of 89yrs. General Exam Limitations: no limitations Course Vital Signs 04/30/19 04/30/19 09:36 09:50 Temperature 97.9 F 98.2 F Pulse Rate 58 L 60 Respiratory 18 18 Rate Blood Pressure 120/84 130/97 O2 Sat by Pulse 96 97 Oximetry Medical Decision Making - Lab Data Result diagrams: 04/30/19 10:10 04/30/19 10:10 Lab Results 04/30/19 04/30/19 04/30/19 Range/Units 10:10 10:10 10:10 WBC 6.5 (3.8-10.6) k/uL RBC 4.89 (4.30-5.90) m/uL Hgb 14.6 (13.0-17.5) gm/dL Hct 43.4 (39.0-53.0) % MCV 88.7 (80.0-100.0) fL MCH 29.8 (25.0-35.0) pg MCHC 33.6 (31.0-37.0) g/dL RDW 14.7 (11.5-15.5) % Plt Count 224 (150-450) k/uL Neutrophils % 76 % Lymphocytes % 10 % Monocytes % 7 % Eosinophils % 2 % Basophils % 2 % Neutrophils # 4.9 (1.3-7.7) k/uL Lymphocytes # 0.6 L (1.0-4.8) k/uL Monocytes # 0.5 (0-1.0) k/uL Eosinophils # 0.1 (0-0.7) k/uL Basophils # 0.2 (0-0.2) k/uL PT 9.9 (9.0-12.0) sec INR 0.9 (<1.2) APTT 24.3 (22.0-30.0) sec Sodium 142 (137-145) mmol/L Potassium 4.4 (3.5-5.1) mmol/L Chloride 105 (98-107) mmol/L Carbon Dioxide 29 (22-30) mmol/L Anion Gap 8 mmol/L BUN 15 (9-20) mg/dL Creatinine 1.55 H (0.66-1.25) mg/dL Est GFR (CKD-EPI)AfAm 52 (>60 ml/min/1.73 sqM) Est GFR (CKD-EPI)NonAf 45 (>60 ml/min/1.73 sqM) Glucose 82 (74-99) mg/dL POC Glucose (mg/dL) (75-99) mg/dL POC Glu Occupancy Specialist ID Calcium 9.8 (8.4-10.2) mg/dL Total Bilirubin 0.4 (0.2-1.3) mg/dL AST 25 (17-59) U/L ALT 34 (21-72) U/L Alkaline Phosphatase 158 H (38-126) U/L Troponin I (0.000-0.034) ng/mL Total Protein 7.0 (6.3-8.2) g/dL Albumin 4.2 (3.5-5.0) g/dL 04/30/19 04/30/19 Range/Units 10:10 10:14 WBC (3.8-10.6) k/uL RBC (4.30-5.90) m/uL Hgb (13.0-17.5) gm/dL Hct (39.0-53.0) % MCV (80.0-100.0) fL MCH (25.0-35.0) pg MCHC (31.0-37.0) g/dL RDW (11.5-15.5) % Plt Count (150-450) k/uL Neutrophils % % Lymphocytes % % Monocytes % % Eosinophils % % Basophils % % Neutrophils # (1.3-7.7) k/uL Lymphocytes # (1.0-4.8) k/uL Monocytes # (0-1.0) k/uL Eosinophils # (0-0.7) k/uL Basophils # (0-0.2) k/uL PT (9.0-12.0) sec INR (<1.2) APTT (22.0-30.0) sec Sodium (137-145) mmol/L Potassium (3.5-5.1) mmol/L Chloride (98-107) mmol/L Carbon Dioxide (22-30) mmol/L Anion Gap mmol/L BUN (9-20) mg/dL Creatinine (0.66-1.25) mg/dL Est GFR (CKD-EPI)AfAm (>60 ml/min/1.73 sqM) Est GFR (CKD-EPI)NonAf (>60 ml/min/1.73 sqM) Glucose (74-99) mg/dL POC Glucose (mg/dL) 82 (75-99) mg/dL POC Glu Occupancy Specialist ID Daniel Brower Calcium (8.4-10.2) mg/dL Total Bilirubin (0.2-1.3) mg/dL AST (17-59) U/L ALT (21-72) U/L Alkaline Phosphatase (38-126) U/L Troponin I <0.012 (0.000-0.034) ng/mL Total Protein (6.3-8.2) g/dL Albumin (3.5-5.0) g/dL Disposition Clinical Impression: Hydrocephalus Disposition: OTHER INSTITUTION NOT DEFINED Condition: Good Referrals: Cedric Gold DO [Primary Care Provider] - 1-2 days Time of Disposition: 11:27 - Out of Hospital Transfer - Req. Specs Out of Hospital Transfer - Requested Specifics: Other Emergency Center ([facility])
[2019-04-30 10:33] LABS: Basophils # (A) 0.2 k/uL (0-0.2); Basophils % (A) 2 %; Eosinophils # (A) 0.1 k/uL (0-0.7); Eosinophils % (A) 2 %; HCT 43.4 % (39.0-53.0); HGB 14.6 gm/dL (13.0-17.5); Lymphocytes # (A) 0.6 k/uL (1.0-4.8); Lymphocytes % (A) 10 %; MCH 29.8 pg (25.0-35.0); MCHC 33.6 g/dL (31.0-37.0); MCV 88.7 fL (80.0-100.0); Mean Platelet Volume 7.2; Monocytes # (A) 0.5 k/uL (0-1.0); Monocytes % (A) 7 %; Neutrophils # (A) 4.9 k/uL (1.3-7.7); Neutrophils % (A) 76 %; Platelet Count 224 k/uL (150-450); RBC 4.89 m/uL (4.30-5.90); RDW 14.7 % (11.5-15.5); WBC 6.5 k/uL (3.8-10.6)
[2019-04-30 10:44] LABS: INR 0.9 (<1.2); Partial Thromboplastin Time 24.3 sec (22.0-30.0); Prothrombin Time 9.9 sec (9.0-12.0)
[2019-04-30 10:49] LABS: Albumin 4.2 g/dL (3.5-5.0); Calcium 9.8 mg/dL (8.4-10.2); Potassium 4.4 mmol/L (3.5-5.1); Total Bilirubin 0.4 mg/dL (0.2-1.3)
--- NOTE | 2019-04-30 11:13 | CT ---
EXAMINATION TYPE: CT brain wo con DATE OF EXAM: 04/30/2019 COMPARISON: 07/28/2018 HISTORY: Lt sided weakness CT DLP: 1091.4 mGycm Automated exposure control for dose reduction was used. FINDINGS: There is moderate to severe central dilation of the ventricular system somewhat out of proportion to the sulci overlying the convexities. Findings compatible degenerative change with the possibility of normal pressure hydrocephalus or hydrocephalus. Low-attenuation in the periventricular white matter i s nonspecific. Ventricular size stable relative to prior exam. No midline shift. More focal area of low attenuation in the right superior parietal white matter sugg estive of an area of ischemia likely remote. No midline shift or mass effect. Intracranial atherosclerotic changes noted. Calvarium intact. Changes of chronic sinusitis and mastoiditis IMPRESSION: 1. Degenerative change with greater central component. This raises the possibility of hydrocephalus o r normal pressure. 2. Nonspecific changes most typical remote ischemia. If there is concern for acute ischemia correlate with MRI as clinically warranted.
--- NOTE | 2019-04-30 11:19 | XR ---
EXAMINATION TYPE: XR chest 2V DATE OF EXAM: 04/30/2019 COMPARISON: 01/06/19 HISTORY: Shortness of breath TECHNIQUE: Frontal and lateral views of the chest are obtained. FINDINGS: Scattered senescent parenchymal changes noted. Hyperinflation compatible with COPD. No evidence for infiltrate. No evidence for atelectasis. Heart size is stable. Mediastinal structures are stable and grossly unremarkable. No evidence for hilar prominence. Degenerative changes dorsal spine. IMPRESSION: 1. No evidence for acute pulmonary disease.
[2019-04-30 12:31] VITALS: BP 136/92; PULSE 59; RESP 18; TEMP 98.2
== END 2019-04-30 12:29 | disposition other institution (70) ==
LOC: EC 09:33
DX: G91.9 Hydrocephalus, unspecified (principal); I69.392 Facial weakness following cerebral infarction; R27.0 Ataxia, unspecified; R32 Unspecified urinary incontinence; E78.5 Hyperlipidemia, unspecified; F32.9 Major depressive disorder, single episode, unspecified; I25.119 Atherosclerotic heart disease of native coronary artery with unspecified angina pectoris; I25.2 Old myocardial infarction; M19.90 Unspecified osteoarthritis, unspecified site; G89.29 Other chronic pain; I12.9 Hypertensive chronic kidney disease with stage 1 through stage 4 chronic kidney disease, or unspecified chronic kidney disease; E11.22 Type 2 diabetes mellitus with diabetic chronic kidney disease; E11.40 Type 2 diabetes mellitus with diabetic neuropathy, unspecified; R29.714 NIHSS score 14; N18.9 Chronic kidney disease, unspecified; Z96.41 Presence of insulin pump (external) (internal); Z79.4 Long term (current) use of insulin; Z79.82 Long term (current) use of aspirin; Z85.46 Personal history of malignant neoplasm of prostate; Z95.5 Presence of coronary angioplasty implant and graft; Z92.3 Personal history of irradiation; Z87.891 Personal history of nicotine dependence
CPT/HCPCS: 36415; 70450; 71046; 80053; 84484; 85025; 85610; 85730; 93005; 96360; 99285

== ENCOUNTER → 2019-08-04 | Outpatient (CLI) | payer MEDICARE ==
[2019-08-04 16:42] LABS: African American GFR (CKD) 54.7 (60.0-200.0); Albumin 4.2 g/dL (3.80-4.90); Albumin/Globulin Ratio 2.33 (1.60-3.17); Anion Gap 7.1 mmol/L (4.00-12.00); BUN/Creat Ratio 14.67 Ratio (12.00-20.00); Calcium 9.7 mg/dL (8.7-10.3); Carbon Dioxide 28.9 mmol/L (21.6-31.8); Chol/HDL Ratio 4.92; Globulin 1.8 g/dL (1.6-3.3); LDL Cholesterol,Calculated 83.2 mg/dL (0.0-131.0); Non-African American GFR(CKD) 47.2 (60.0-200.0); Potassium 4.4 mmol/L (3.5-5.5); Total Bilirubin 0.5 mg/dL (0.2-1.2); VLDL Calculation 61.8 mg/dL (5.00-40.00)
[2019-08-04 18:32] LABS: Microalbumin Creatinine Ratio <30 mg/g Creat (0-30); Urine Creatinine 107.4 mg/dL
== END | disposition home or self-care (01) ==
LOC: LABWHC1 09:57
PROVIDERS: ATTEND Internal Medicine Endocrinology, Diabetes & Metabolism
DX: E11.65 Type 2 diabetes mellitus with hyperglycemia (principal)
CPT/HCPCS: 36415; 80053; 80061; 82043; 82570; 83036; 84443

== ENCOUNTER → 2019-12-10 | Outpatient (CLI) | payer MEDICARE ==
[2019-12-10 12:32] LABS: HCT 41.7 % (39.0-53.0); MCH 31.2 pg (25.0-35.0); MCHC 33.6 g/dL (31.0-37.0); MCV 92.7 fL (80.0-100.0); Mean Platelet Volume 7.6; Platelet Count 225 k/uL (150-450); WBC 6.6 k/uL (3.8-10.6)
[2019-12-10 18:49] LABS: Ferritin 56.2 ng/mL (22.0-322.0)
[2019-12-10 18:55] LABS: % Iron Saturation 24.83 (15.00-50.00); African American GFR (CKD) 54.3 (60.0-200.0); Albumin 4.1 g/dL (3.80-4.90); Albumin/Globulin Ratio 1.95 (1.60-3.17); Anion Gap 7.2 mmol/L (4.00-12.00); BUN/Creat Ratio 10.67 Ratio (12.00-20.00); Calcium 9.2 mg/dL (8.7-10.3); Carbon Dioxide 31.8 mmol/L (21.6-31.8); Globulin 2.1 g/dL (1.6-3.3); Magnesium 1.7 mg/dL (1.5-2.4); Non-African American GFR(CKD) 46.8 (60.0-200.0); Phosphorus 2.9 mg/dL (2.4-5.1); Potassium 4.7 mmol/L (3.5-5.5); Total Bilirubin 0.4 mg/dL (0.3-1.2); Total Protein 6.2 g/dL (6.2-8.2)
== END | disposition home or self-care (01) ==
LOC: LABWHC1 11:28
PROVIDERS: ATTEND Internal Medicine Nephrology
DX: N39.0 Urinary tract infection, site not specified (principal); D63.1 Anemia in chronic kidney disease; N18.3 Chronic kidney disease, stage 3 (moderate); N25.81 Secondary hyperparathyroidism of renal origin; E55.9 Vitamin D deficiency, unspecified; M10.9 Gout, unspecified; R80.9 Proteinuria, unspecified
CPT/HCPCS: 36415; 80053; 82306; 82728; 83540; 83550; 83735; 83970; 84100; 84550; 85027

== ENCOUNTER → 2020-03-29 | Outpatient (CLI) | payer MEDICARE ==
[2020-03-29 21:59] LABS: Hemoglobin A1C 8.1 % (4.0-6.0)
[2020-03-29 22:43] LABS: Albumin 4.2 g/dL (3.80-4.90); Albumin/Globulin Ratio 2.1 (1.60-3.17); Anion Gap 12.4 mmol/L (4.00-12.00); BUN/Creat Ratio 12.86 Ratio (12.00-20.00); Calcium 9.4 mg/dL (8.7-10.3); Carbon Dioxide 25.6 mmol/L (21.6-31.8); Chol/HDL Ratio 4.95; LDL Cholesterol,Calculated 85.4 mg/dL (0.0-131.0); Non-African American GFR(CKD) 50.9 (60.0-200.0); Potassium 4.6 mmol/L (3.5-5.5); Total Bilirubin 0.4 mg/dL (0.3-1.2); Total Protein 6.2 g/dL (6.2-8.2); VLDL Calculation 68.6 mg/dL (5.00-40.00)
== END | disposition home or self-care (01) ==
LOC: LABWHC1 10:16
PROVIDERS: ATTEND Internal Medicine Endocrinology, Diabetes & Metabolism
DX: E11.65 Type 2 diabetes mellitus with hyperglycemia (principal); Z51.81 Encounter for therapeutic drug level monitoring
CPT/HCPCS: 36415; 80053; 80061; 83036; 84443

== ENCOUNTER → 2020-03-30 | Outpatient (CLI) | payer MEDICARE ==
[2020-03-30 20:59] LABS: Urine Creatinine 123.2 mg/dL
== END | disposition home or self-care (01) ==
LOC: LABWHC1 10:50
PROVIDERS: ATTEND Internal Medicine Endocrinology, Diabetes & Metabolism
DX: E11.65 Type 2 diabetes mellitus with hyperglycemia (principal)
CPT/HCPCS: 82043; 82570

== ENCOUNTER 2020-06-13 18:39 | Observation (INO) | payer MEDICARE ==
--- NOTE | 2020-06-13 19:20 | ED ---
General Adult HPI - General Chief complaint: Weakness Stated complaint: weakness Time Seen by Provider: 06/13/20 18:51 Source: patient, EMS Mode of arrival: EMS Limitations: physical limitation - History of Present Illness Initial comments: Dictation was produced using [employer] dictation software. please excuse any grammatical, word or spelling errors. This patient was cared for during a federal and state declared state of emergency secondary to Covid 19 Chief Complaint: 69-year-old male with multiple comorbidities presents after gen eralized weakness and fall History of Present Illness: Recently 9-year-old male who has multiple co morbidities. His list of medical comorbidities and close heart attack, myocardial infarction, dementia, dyslipidemia, CVA, dementia. Patient states that today he experienced sudden onset weakness upon waking. Patient states he fell down day. Denies any loss of consciousness. He does not have any pain from the fall. He fell approximately 7 AM. Patient states he tried to get around the house however he was feeling so weak that he was able to his activities of daily living. Lives at home with his . His was not strong enough to take care of him. Patient has any fever or chills or night sweats. No other complaints at this time The ROS documented in this emergency department record has been reviewed and confirmed by me. Those systems with pertinent positive or negative responses have been documented in the HPI. All other systems are other negative and/or noncontributory. PHYSICAL EXAM: General Impression: Alert and oriented x3, not in acute distress HEENT: Normocephalic atraumatic, extra-ocular movements intact, pupils equal and reactive to light bilaterally, mucous membranes moist. Cardiovascular: Heart regular rate and rhythm Chest: Able to complete full sentences, no retractions, no tachypnea Abdomen: abdomen soft, non-tender, non-distended, no organomegaly Musculoskeletal: Pulses present and equal in all extremities, 2+ pitting edema bilaterally Motor: no focal deficits noted Neurological: CN II-XII grossly intact, no focal motor or sensory deficits noted Skin: Intact with no visualized rashes Psych: Normal affect and mood ED course: 69-year-old male presents with generalized weakness and fall at 7 AM this morning. Vital signs upon arrival are within acceptable limits. Laboratory evaluation obtained. CBC unremarkable. Coag panel is negative. Metabolic panel is within acceptable limits. Cardiac enzymes negative. Urinalysis is negative. CT scan of the brain and C-spine shows no acute processes. We attempted to ambulate patient at bedside however he was so weak that he was unable to do so. Pending rapid coronavirus test. Patient be admitted with consultation to physical therapy. Pending discussion with EM. EKG interpretation: Ventricular rate 71, normal sinus rhythm,. Interval 90, QRS 82, QTC 402. No LA prolongation, no QTC prolongation, no ST or T-wave changes noted. EKG compared to 04/30/2019 showing no changes. Overall, this EKG is unremarkable - Related Data Home Medications Medication Instructions Recorded Confirmed Aspirin 81 mg PO DAILY 01/12/15 06/13/20 Atorvastatin Calcium [Lipitor] 80 mg PO HS 07/30/17 06/13/20 Memantine HCl [Namenda] 10 mg PO BID 07/30/17 06/13/20 Torsemide [Demadex] 5 mg PO DAILY PRN 02/20/18 06/13/20 Magnesium Oxide 400 mg PO DAILY 12/01/18 06/13/20 Escitalopram [Lexapro] 10 mg PO DAILY 01/06/19 06/13/20 Folic Acid 1 mg PO DAILY@1500 01/06/19 06/13/20 Gabapentin [Neurontin] 400 mg PO BID 01/06/19 06/13/20 INSULIN LISPRO (For Pump) [humaLOG 0.01 units SQ-PUMP CONTINUOUS 01/06/19 06/13/20 (For Pump)] Thiamine [Vitamin B-1] 100 mg PO DAILY@1500 01/06/19 06/13/20 rOPINIRole HCL [Requip] 0.25 mg PO BID 01/06/19 06/13/20 Isosorbide Mononitrate ER [Imdur] 30 mg PO DAILY 04/02/19 06/13/20 Losartan [Cozaar] 50 mg PO DIRECTED 04/02/19 06/13/20 Prasugrel [Effient] 10 mg PO DAILY 04/02/19 06/13/20 Cholecalciferol (Vitamin D3) 125 mcg PO MOWEFR 06/13/20 06/13/20 [Vitamin D3] Fenofibrate Nanocrystallized 145 mg PO HS 06/13/20 06/13/20 [Fenofibrate] Multivitamins, Thera [Multivitamin 1 tab PO DAILY@1500 06/13/20 06/13/20 (formulary)] Nitroglycerin Sl Tabs [Nitrostat] 0.4 mg SL Q5M PRN 06/13/20 06/13/20 Primidone [Mysoline] 125 mg PO DAILY@1400 06/13/20 06/13/20 amLODIPine [Norvasc] 5 mg PO DAILY 06/13/20 06/13/20 Previous Rx's Medication Instructions Recorded Donepezil [Aricept] 10 mg PO HS tab 12/08/18 Metoprolol Tartrate [Lopressor] 25 mg PO BID tab 12/08/18 OXcarbazepine [Trileptal] 300 mg PO BID #10 tab 12/08/18 Primidone [Mysoline] 250 mg PO HS #5 tab 12/08/18 Allergies Allergy/AdvReac Type Severity Reaction Status Date / Time No Known Allergies Allergy Verified 06/13/20 20:02 Review of Systems ROS Statement: Those systems with pertinent positive or pertinent negative responses have been documented in the HPI. ROS Other: All systems not noted in ROS Statement are negative. Past Medical History Past Medical History: Coronary Artery Disease (CAD), Cancer, Chest Pain / Angina, CVA/TIA, Dementia, Diabetes Mellitus, Hyperlipidemia, Hypertension, Myocardial Infarction ([place]), Osteoarthritis (OA), Pneumonia, Renal Disease, Skin Disorder Additional Past Medical History / Comment(s): SEE DR BLEVINS'S NOTE FOR CARDIAC HX. HX OF SYNCOPAL EPISODES OF UNKNOWN CAUSE. Diabetes mellitus currently on insulin pump. SHORT TERM MEMORY LOSS. 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 COLONOCOSPY, LUMBAR EPIDURAL INJ, total 4 cardiac stents (2010 1 stent and 2014 3 stents),[place] cataracts/lens implants, colonoscopy, gold seed implants for prostate cancer. back surgery (11/2018) Past Anesthesia/Blood Transfusion Reactions: Motion Sickness Additional Past Anesthesia/Blood Transfusion Reaction / Comment(s): CLAUSTROPHOBIC Date of Last Stent Placement:: 2014 Past Psychological History: No Psychological Hx Reported, Depression Past Alcohol Use History: None Reported Past Drug Use History: None Reported - Past Family History Father Family Medical History: Cancer Additional Family Medical History / Comment(s): FATHER HAD BLADDER CANCER AND OF THIS IN HIS 40'S Mother Family Medical History: Cancer, Dementia Additional Family Medical History / Comment(s): UTERINE CANCER. Mother of dementia at the age of 89yrs. General Exam Limitations: physical limitation Course Vital Signs 06/13/20 06/13/20 06/13/20 18:43 18:44 19:00 Temperature 98.1 F Pulse Rate 71 Respiratory 18 Rate Blood Pressure 140/82 140/82 O2 Sat by Pulse 95 95 Oximetry 06/13/20 06/13/20 06/13/20 19:30 20:00 20:30 Temperature Pulse Rate 66 64 65 Respiratory 20 20 Rate Blood Pressure 131/62 143/74 157/96 O2 Sat by Pulse 95 96 95 Oximetry Medical Decision Making - Lab Data Result diagrams: 06/13/20 19:32 06/13/20 19:32 Lab Results 06/13/20 06/13/20 06/13/20 Range/Units 19:32 19:32 19:32 WBC 5.2 (3.8-10.6) k/uL RBC 4.82 (4.30-5.90) m/uL Hgb 15.3 (13.0-17.5) gm/dL Hct 43.4 (39.0-53.0) % MCV 90.1 (80.0-100.0) fL MCH 31.8 (25.0-35.0) pg MCHC 35.3 (31.0-37.0) g/dL RDW 14.8 (11.5-15.5) % Plt Count 222 (150-450) k/uL MPV 7.7 Neutrophils % 70 % Lymphocytes % 14 % Monocytes % 7 % Eosinophils % 3 % Basophils % 1 % Neutrophils # 3.7 (1.3-7.7) k/uL Lymphocytes # 0.7 L (1.0-4.8) k/uL Monocytes # 0.4 (0-1.0) k/uL Eosinophils # 0.1 (0-0.7) k/uL Basophils # 0.1 (0-0.2) k/uL PT 10.2 (9.0-12.0) sec INR 1.0 (<1.2) APTT 24.9 (22.0-30.0) sec Sodium (137-145) mmol/L Potassium (3.5-5.1) mmol/L Chloride (98-107) mmol/L Carbon Dioxide (22-30) mmol/L Anion Gap mmol/L BUN (9-20) mg/dL Creatinine (0.66-1.25) mg/dL Est GFR (CKD-EPI)AfAm (>60 ml/min/1.73 sqM) Est GFR (CKD-EPI)NonAf (>60 ml/min/1.73 sqM) Glucose (74-99) mg/dL Plasma Lactic Acid [place] (0.7-2.0) mmol/L Calcium (8.4-10.2) mg/dL Magnesium (1.6-2.3) mg/dL Creatine Kinase (55-170) U/L Troponin I (0.000-0.034) ng/mL TSH (0.465-4.680) mIU/L Urine Color Yellow Urine Appearance Clear (Clear) Urine pH 5.5 (5.0-8.0) Ur Specific [place] 1.017 (1.001-1.035) Urine Protein Negative (Negative) Urine Glucose (UA) Negative (Negative) Urine Ketones Negative (Negative) Urine Blood Negative (Negative) Urine Nitrite Negative (Negative) Urine Bilirubin Negative (Negative) Urine Urobilinogen <2.0 (<2.0) mg/dL Ur Leukocyte Esterase Negative (Negative) 06/13/20 06/13/20 06/13/20 Range/Units 19:32 19:32 19:32 WBC (3.8-10.6) k/uL RBC (4.30-5.90) m/uL Hgb (13.0-17.5) gm/dL Hct (39.0-53.0) % MCV (80.0-100.0) fL MCH (25.0-35.0) pg MCHC (31.0-37.0) g/dL RDW (11.5-15.5) % Plt Count (150-450) k/uL MPV Neutrophils % % Lymphocytes % % Monocytes % % Eosinophils % % Basophils % % Neutrophils # (1.3-7.7) k/uL Lymphocytes # (1.0-4.8) k/uL Monocytes # (0-1.0) k/uL Eosinophils # (0-0.7) k/uL Basophils # (0-0.2) k/uL PT (9.0-12.0) sec INR (<1.2) APTT (22.0-30.0) sec Sodium 140 (137-145) mmol/L Potassium 4.6 (3.5-5.1) mmol/L Chloride 107 (98-107) mmol/L Carbon Dioxide 28 (22-30) mmol/L Anion Gap 5 mmol/L BUN 21 H (9-20) mg/dL Creatinine 1.78 H (0.66-1.25) mg/dL Est GFR (CKD-EPI)AfAm 44 (>60 ml/min/1.73 sqM) Est GFR (CKD-EPI)NonAf 38 (>60 ml/min/1.73 sqM) Glucose 151 H (74-99) mg/dL Plasma Lactic Acid Abdirizak 1.5 (0.7-2.0) mmol/L Calcium 10.2 (8.4-10.2) mg/dL Magnesium 1.9 (1.6-2.3) mg/dL Creatine Kinase 67 (55-170) U/L Troponin I <0.012 (0.000-0.034) ng/mL TSH 2.380 (0.465-4.680) mIU/L Urine Color Urine Appearance (Clear) Urine pH (5.0-8.0) Ur Specific [place] (1.001-1.035) Urine Protein (Negative) Urine Glucose (UA) (Negative) Urine Ketones (Negative) Urine Blood (Negative) Urine Nitrite (Negative) Urine Bilirubin (Negative) Urine Urobilinogen (<2.0) mg/dL Ur Leukocyte Esterase (Negative) Disposition Clinical Impression: Weakness Disposition: ADMITTED IP TO THIS [facility] Condition: Fair Referrals: Cedric Gold DO [Primary Care Provider] - 1-2 days Decision Time: 22:29
[2020-06-13 19:43] LABS: Basophils # (A) 0.1 k/uL (0-0.2); Basophils % (A) 1 %; Eosinophils # (A) 0.1 k/uL (0-0.7); Eosinophils % (A) 3 %; HCT 43.4 % (39.0-53.0); HGB 15.3 gm/dL (13.0-17.5); Lymphocytes # (A) 0.7 k/uL (1.0-4.8); Lymphocytes % (A) 14 %; MCH 31.8 pg (25.0-35.0); MCHC 35.3 g/dL (31.0-37.0); MCV 90.1 fL (80.0-100.0); Mean Platelet Volume 7.7; Monocytes # (A) 0.4 k/uL (0-1.0); Monocytes % (A) 7 %; Neutrophils # (A) 3.7 k/uL (1.3-7.7); Neutrophils % (A) 70 %; Platelet Count 222 k/uL (150-450); RBC 4.82 m/uL (4.30-5.90); RDW 14.8 % (11.5-15.5); WBC 5.2 k/uL (3.8-10.6)
[2020-06-13 19:50] LABS: Partial Thromboplastin Time 24.9 sec (22.0-30.0); Prothrombin Time 10.2 sec (9.0-12.0)
[2020-06-13 19:51] LABS: Calcium 10.2 mg/dL (8.4-10.2); Magnesium 1.9 mg/dL (1.6-2.3); Potassium 4.6 mmol/L (3.5-5.1)
--- NOTE | 2020-06-13 20:08 | CT ---
EXAMINATION TYPE: CT brain cspine wo con DATE OF EXAM: 06/13/2020 COMPARISON: 07/28/2018 HISTORY: fall CT DLP: 1684 mGycm Automated exposure control for dose reduction was used. There is cerebral cortical atrophy. There is no mass effect nor midline shift. There is no sign of in tracranial hemorrhage. Calvarium is intact. There is mucosal thickening right maxillary sinus. Cervical vertebra have normal alignment. There is degenerative disc space narrowing throughout the ce rvical spine with spurring of the endplates. Facet joints are intact. No evidence of a fracture. Skul l base is intact. There is normal aeration of the mastoid sinuses. IMPRESSION: Cerebral atrophy. No acute intracranial abnormality. No change compared to old exam. Multilevel cervical spondylotic changes. No fracture. No change compared to old exam.
[2020-06-13] MEDS ORDERED: SODIUM CHLORIDE 0.9% 1,000 ML IV STA (20:59)
[2020-06-13 21:26] LABS: Appearance,Urine Clear (Clear); Bilirubin,Urine Negative (Negative); Blood,Urine Negative (Negative); Color,Urine Yellow; Glucose,Urine (UA) Negative (Negative); Ketones,Urine Negative (Negative); Leukocyte Esterase,Urine Negative (Negative); Nitrite,Urine Negative (Negative); PH, Urine 5.5 (5.0-8.0); Protein,Urine Negative (Negative); Specific Gravity,Urine 1.017 (1.001-1.035); Urobilinogen,Urine <2.0 mg/dL (<2.0)
[2020-06-13] MEDS ORDERED: ONDANSETRON 4 MG/2 ML VIAL IVP PRN (22:22)
[2020-06-13] MEDS ORDERED: ACETAMINOPHEN TAB 325 MG TAB PO PRN (22:22)
[2020-06-13] MEDS ORDERED: NALOXONE 0.4 MG/ML 1 ML VIAL IV PRN (22:22)
[2020-06-14] MEDS: SODIUM CHLORIDE 0.9% 1,000 ML IV SCH (02:38)
[2020-06-14 10:39] LABS: Glucose,Whole Blood 106 mg/dL (75-99)
[2020-06-14 11:47] LABS: Glucose,Whole Blood 92 mg/dL (75-99)
[2020-06-14] MEDS ORDERED: INSULIN LISPRO 100 UNIT/ML SQ SCH (12:30)
[2020-06-14] MEDS ORDERED: HYDROcodone/APAP 5-325MG 1 EACH TAB PO PRN (13:00)
[2020-06-14] MEDS ORDERED: ALPRAZolam 0.25 MG TAB PO PRN (13:00)
--- NOTE | 2020-06-14 13:29 | HP ---
HISTORY AND PHYSICAL I am covering for Dr. Gold. CHIEF COMPLAINTS: Weakness. HISTORY OF PRESENT ILLNESS: This 69-year-old gentleman with a past medical history of multiple medical problems including CAD, CVA, TIA, dementia, diabetes mellitus, hypertension, hyperlipidemia, being followed by Dr. Gold in the outpatient setting was admitted with complaints of weakness. The weakness started on the day of , according to him. The patient was walking, but the patient was unable to even walk with a walker and the patient had multiple falls and patient was taken to [facility] and admitted for further evaluation and treatment. PT, OT evaluated the patient. The patient also had acute renal failure with creatinine elevated up to 1.78. Blood sugars elevated up to 151 also. The COVID-19 is negative. There is no history of any fever, rigors. No history of headache, loss of consciousness or seizures at this time. PAST MEDICAL HISTORY: CAD, CVA, TIA, dementia, diabetes mellitus type 2, hypertension, hyperlipidemia, myocardial infarction, DJD. MEDICATIONS: Medications prior to admission include home medications are: 1. Requip. 2. Norvasc. 3. Demadex. 4. Vitamin B1. 5. Mysoline. 6. Effient. 7. Trileptal. 8. Nitrostat. 9. Multivitamins. 10.Lopressor. 11.Namenda. 12.Magnesium oxide. 13.Cozaar. 14.Imdur. 15.Insulin pump. 16.Neurontin. 17.Folic acid. 18.Fenofibrate. 19.Lexapro. 20.Aricept. 21.Vitamin D3. 22.Lipitor. 23.Aspirin. ALLERGIES: None. FAMILY HISTORY: History of bladder cancer. SOCIAL HISTORY: Previous history of smoking. No history of current smoking or alcohol intake. REVIEW OF SYSTEMS: ENT: Diminished hearing and diminished vision. CARDIOVASCULAR SYSTEM: No angina or palpitations. RESPIRATORY SYSTEM: As mentioned earlier. GI: As mentioned earlier. : As mentioned earlier. NERVOUS SYSTEM: As mentioned earlier. ALLERGY/IMMUNOLOGY: No asthma or hayfever. MUSCULOSKELETAL: As mentioned earlier. HEMATOLOGY: No history of anemia. ENDOCRINE: Diabetes mellitus. CONSTITUTIONAL: As mentioned earlier. DERMATOLOGY: Negative. RHEUMATOLOGY: Negative. PSYCHIATRY: As mentioned earlier. PHYSICAL EXAMINATION: The patient is alert and oriented x3. Pulse is 76, blood pressure 160/95 with a temperature 97.4, pulse ox 96% on room air. HEENT: Conjunctivae normal. NECK: No jugular venous distention. CARDIOVASCULAR: S1, S2 muffled. RESPIRATORY: Breath sounds diminished at the bases. A few scattered rhonchi and crackles. ABDOMEN: Soft, obese, nontender. No mass palpable. LEGS: No edema, no swelling. NERVOUS SYSTEM: Higher functions as mentioned earlier. Moves all 4 limbs. No focal motor or sensory deficits. LYMPHATICS: No lymphadenopathy of the neck, axillae or groin. SKIN: No ulcer, rash or bleeding. JOINTS: No active deforming arthropathy. LABS: WBC 5.2, hemoglobin 15.3, sodium 140, potassium 4.6, creatinine is 1.78. ASSESSMENT: 1. Acute renal failure with prerenal acute renal failure with acute tubular necrosis. 2. Severe weakness, multifactorial. 3. Gait dysfunction. 4. History of falls. 5. History of coronary artery disease. 6. History of cerebrovascular accident, transient ischemic attack. 7. Dementia. 8. Diabetes mellitus type 2. 9. Hypertension. 10.Hyperlipidemia. 11.Insulin pump. 12.History of myocardial infarction. 13.History of degenerative joint disease. 14.History of pneumonia. 15.History of kidney disease. 16.History of syncopal episodes. 17.History of seizure disorder. 18.History of peripheral neuropathy. 19.History of prostate cancer. 20.History of cerebrovascular accident with right-sided weakness. 21.History of back surgery. 22.History of coronary artery disease, stent. 23.History of claustrophobia. 24.History of depression. 25.Obesity with body mass index of 36.4. 26.FULL CODE. RECOMMENDATIONS AND DISCUSSION: This 69-year-old gentleman who presented with multiple medical problems at this time I recommend to continue the current medications and symptomatic treatment. I would recommend cautious IV hydration. I would also recommend a chest x-ray to assess the fluid electrolyte balance at this time. Avoid nephrotoxic medications. PT, OT evaluation, possible ECF rehab. Because of multiple complex medical issues and extreme weakness, I would strongly recommend and anticipate more than 2 nights hospital stay in order for the patient to improve at this time, so I would recommend inpatient admission rather than observation. Prognosis guarded. Discussed with the patient. Further recommendations to follow. A copy of dictation forwarded to Dr. Gold who is the primary physician. MMODL / IJN: [id number] /
--- NOTE | 2020-06-14 13:34 | XR ---
EXAMINATION TYPE: XR chest 1V portable DATE OF EXAM: 06/14/2020 COMPARISON: 04/30/2019 INDICATION: CHF TECHNIQUE: Single frontal view of the chest is obtained. FINDINGS: The heart size is normal. The pulmonary vasculature is normal. There is mild infrahilar infiltrates. Findings are nonspecific. Atypical pulmonary edema could be con sidered. Consider infectious etiologies within the differential such as atypical pneumonia. IMPRESSION: 1. Mild infrahilar infiltrates bilaterally. Atypical pulmonary edema and infection could be considere d
[2020-06-14] MEDS: HEPARIN SODIUM,PORCINE 5,000 UNIT/ML 1 ML VIAL SQ SCH ×2 (14:00→19:46)
[2020-06-14] MEDS: THIAMINE 100 MG TAB PO SCH (14:56)
[2020-06-14] MEDS: FOLIC ACID 1 MG TAB PO SCH (14:56)
[2020-06-14] MEDS: ASPIRIN 81 MG PO SCH (14:56)
[2020-06-14] MEDS: amLODIPine 5 MG TAB PO SCH (14:56)
[2020-06-14 17:14] LABS: Glucose,Whole Blood 142 mg/dL (75-99)
[2020-06-14] MEDS: ATORVASTATIN 80 MG TAB PO SCH (19:45)
[2020-06-14] MEDS: DONEPEZIL 10 MG TAB PO SCH (19:45)
[2020-06-14] MEDS: GABAPENTIN 400 MG CAP PO SCH (19:45)
[2020-06-14] MEDS: ISOSORBIDE MONONITRATE ER 30 MG TAB.ER.24H PO SCH (19:46)
[2020-06-14] MEDS: METOPROLOL TARTRATE 25 MG TAB PO SCH (19:46)
[2020-06-14] MEDS: ESCITALOPRAM 10 MG TAB PO SCH (19:47)
[2020-06-14] MEDS: MEMANTINE 10 MG TAB PO SCH (19:47)
[2020-06-14] MEDS: PRIMIDONE 250 MG TAB PO SCH (19:47)
[2020-06-14] MEDS: FENOFIBRATE 160 MG TAB PO SCH (19:47)
[2020-06-14] MEDS: OXcarbazepine 300 MG TAB PO SCH (19:47)
[2020-06-14 19:54] LABS: Glucose,Whole Blood 148 mg/dL (75-99)
[2020-06-14] MEDS ORDERED: TORSEMIDE 20 MG TAB PO PRN (21:00)
[2020-06-14] MEDS ORDERED: LOSARTAN 50 MG TAB PO SCH (21:00)
[2020-06-15] MEDS: SODIUM CHLORIDE 0.9% 1,000 ML IV SCH ×2 (00:36→12:25)
[2020-06-15 05:38] LABS: Basophils # (A) 0.1 k/uL (0-0.2); Basophils % (A) 1 %; Eosinophils # (A) 0.1 k/uL (0-0.7); Eosinophils % (A) 2 %; HCT 40.3 % (39.0-53.0); HGB 13.6 gm/dL (13.0-17.5); Lymphocytes # (A) 0.7 k/uL (1.0-4.8); Lymphocytes % (A) 15 %; MCHC 33.8 g/dL (31.0-37.0); MCV 91.6 fL (80.0-100.0); Mean Platelet Volume 7.7; Monocytes # (A) 0.3 k/uL (0-1.0); Monocytes % (A) 7 %; Neutrophils # (A) 3.2 k/uL (1.3-7.7); Neutrophils % (A) 71 %; Platelet Count 200 k/uL (150-450); RDW 14.6 % (11.5-15.5); WBC 4.5 k/uL (3.8-10.6)
[2020-06-15 07:01] LABS: Glucose,Whole Blood 71 mg/dL (75-99)
[2020-06-15] MEDS: PANTOPRAZOLE 40 MG TABLET PO SCH (08:29)
[2020-06-15] MEDS: amLODIPine 5 MG TAB PO SCH (08:29)
[2020-06-15] MEDS: HEPARIN SODIUM,PORCINE 5,000 UNIT/ML 1 ML VIAL SQ SCH ×2 (08:30→20:04)
[2020-06-15] MEDS: ASPIRIN 81 MG PO SCH (08:30)
[2020-06-15] MEDS: GABAPENTIN 400 MG CAP PO SCH ×2 (08:30→20:06)
[2020-06-15] MEDS: MEMANTINE 10 MG TAB PO SCH ×2 (08:31→20:04)
[2020-06-15] MEDS: METOPROLOL TARTRATE 25 MG TAB PO SCH ×2 (08:31→20:05)
[2020-06-15] MEDS: MAGNESIUM OXIDE 400 MG TAB PO SCH (08:31)
[2020-06-15] MEDS: PRASUGREL 10 MG TAB PO SCH (08:32)
[2020-06-15] MEDS: OXcarbazepine 300 MG TAB PO SCH ×2 (08:32→20:04)
[2020-06-15] MEDS ORDERED: INSULIN PUMP BASAL RATES 1 EACH MISC MISCELLANE PRN (08:44)
[2020-06-15] MEDS ORDERED: INSULIN ASPART (NovoLOG) 100 UNIT/ML VIAL SQ PRN (08:44)
[2020-06-15] MEDS ORDERED: INSPUCOR MISCELLANE PRN (08:44)
[2020-06-15] MEDS ORDERED: INSULIN PUMP ACTIVE INSULIN 1 EACH MISC MISCELLANE PRN (08:44)
[2020-06-15] MEDS ORDERED: INSULIN PUMP TARGET GLUCOSE 1 EACH MISC MISCELLANE PRN (08:44)
[2020-06-15] MEDS ORDERED: CHOLECALCIFEROL 1,000 UNIT TAB PO SCH (09:00)
[2020-06-15 09:53] LABS: African American GFR (CKD) 43.5 (60.0-200.0); Anion Gap 13.4 mmol/L (4.00-12.00); BUN/Creat Ratio 11.67 Ratio (12.00-20.00); Carbon Dioxide 21.6 mmol/L (21.6-31.8); Non-African American GFR(CKD) 37.6 (60.0-200.0)
[2020-06-15 11:37] LABS: Glucose,Whole Blood 123 mg/dL (75-99)
[2020-06-15] MEDS ORDERED: MULTIVITAMINS, THERA 1 EACH TAB PO SCH (15:00)
[2020-06-15] MEDS: INSULIN PUMP MEAL BOLUS 1 UNIT MISC MISCELLANE SCH ×3 (16:11→21:46)
[2020-06-15] MEDS: FOLIC ACID 1 MG TAB PO SCH (16:18)
[2020-06-15] MEDS: THIAMINE 100 MG TAB PO SCH (16:18)
[2020-06-15 16:47] LABS: Glucose,Whole Blood 91 mg/dL (75-99)
[2020-06-15] MEDS: PRIMIDONE 250 MG TAB PO SCH (20:04)
[2020-06-15] MEDS: ISOSORBIDE MONONITRATE ER 30 MG TAB.ER.24H PO SCH (20:04)
[2020-06-15] MEDS: ESCITALOPRAM 10 MG TAB PO SCH (20:04)
[2020-06-15] MEDS: FENOFIBRATE 160 MG TAB PO SCH (20:04)
[2020-06-15] MEDS: ATORVASTATIN 80 MG TAB PO SCH (20:05)
[2020-06-15] MEDS: DONEPEZIL 10 MG TAB PO SCH (20:05)
[2020-06-15 20:13] LABS: Glucose,Whole Blood 108 mg/dL (75-99)
--- NOTE | 2020-06-16 00:53 | P.PN ---
Subjective Progress Note Date: 06/15/20 This is a 69 year old male who was recently admitted due to increasing weakness with unsteady gait and multiple falls and is being closely monitored. Patient was also found to have acute renal failure and current creatinine is elevated and is maintained on gentle IV hydration. Will repeat am labs. PT/OT to evaluate the patient for possible ECF placement. Case management and social work following and currently working on authorization from insurance for [facility]. Currently patient denies any chest pain, shortness of breath, or palpitations. Patient is afebrile. No reports of nausea or vomiting and patient is tolerating diet. Objective - Vital Signs Vital signs: Vital Signs Temp 97.8 F 06/15/20 08:00 Pulse 69 06/15/20 10:33 Resp 16 06/15/20 08:00 BP 147/92 06/15/20 10:33 Pulse Ox 94 L 06/15/20 08:00 Intake & Output 06/14/20 06/15/20 06/15/20 18:59 06:59 18:59 Intake Total 380 236 Balance 380 236 Intake: Oral 380 236 Other: Voiding Method Toilet # Voids 2 1 # Bowel Movements 1 2 - Exam Gen: This is a 69-year-old male sitting up in bed awake, alert and oriented 3. Temp is 97.8F, pulse is 75, respirations are 16, blood pressure is 117/65, oxygen saturation is 94% on room air. HEENT: Head is atraumatic, normocephalic. Pupils equal, round. Sclerae is anicteric. NECK: Supple. No JVD. No lymphadenopathy. No thyromegaly. LUNGS: Diminished breath sounds bilaterally with some scattered rhonchi noted No intercostal retractions. HEART: S1, S2 are muffled ABDOMEN: Soft. Obese. Bowel sounds are present. No masses. No tenderness. EXTREMITIES: No pedal edema. No calf tenderness. NEUROLOGICAL: Patient is awake, alert and oriented x3. Cranial nerves 2 through 12 are grossly intact. diffusely weak - Labs CBC & Chem 7: 06/15/20 04:47 06/15/20 04:47 Labs: Abnormal Lab Results - Last 24 Hours (Table) 06/14/20 06/14/20 06/15/20 Range/Units 17:11 19:42 04:47 Lymphocytes # 0.7 L (1.0-4.8) k/uL Anion Gap (4.00-12.00) mmol/L Creatinine (0.6-1.5) mg/dL Est GFR (CKD-EPI)AfAm (60.0-200.0) Est GFR (CKD-EPI)NonAf (60.0-200.0) BUN/Creatinine Ratio (12.00-20.00) Ratio POC Glucose (mg/dL) 142 H 148 H (75-99) mg/dL 06/15/20 06/15/20 06/15/20 Range/Units 04:47 07:00 11:35 Lymphocytes # (1.0-4.8) k/uL Anion Gap 13.40 H (4.00-12.00) mmol/L Creatinine 1.8 H (0.6-1.5) mg/dL Est GFR (CKD-EPI)AfAm 43.5 L (60.0-200.0) Est GFR (CKD-EPI)NonAf 37.6 L (60.0-200.0) BUN/Creatinine Ratio 11.67 L (12.00-20.00) Ratio POC Glucose (mg/dL) 71 L 123 H (75-99) mg/dL Assessment and Plan Assessment: Acute renal failure with prerenal acute renal failure with acute tubular necrosis Severe weakness, multifactorial Gait dysfunction History of falls history of coronary artery disease with stents history of CVA, TIA Dementia Diabetes mellitus type 2 Hypertension Hyperlipidemia Insulin pump History of myocardial infarction history of degenerative joint disease history of pneumonia History of kidney disease history of syncopal episodes history of seizure disorder History of peripheral neuropathy History of prostate cancer history of CVA with right-sided weakness history back surgery history of claustrophobia History of depression Obesity with a body mass index of 36.4 Full code Recommendations and discussion: Recommend continue current medications, management, and symptomatic treatment. PT/OT to evaluate the patient for possible ECF rehab as patient continues to be weak and has sustained multiple falls. Case management and social work following and awaiting authorization to an accepting facility. Will continue with gentle IV hydration and repeat am labs and creatinine is elevated. Continue to monitor accuchecks with meals and at bedtime. Patient has insulin pump. Due to multiple complex medical issues, prognosis is guarded. Further recommendations to follow. Possible discharge in 24 hours.
[2020-06-16] MEDS: SODIUM CHLORIDE 0.9% 1,000 ML IV SCH (02:34)
[2020-06-16 06:24] LABS: Basophils % (A) 1 %; Eosinophils # (A) 0.1 k/uL (0-0.7); Eosinophils % (A) 2 %; HCT 37.8 % (39.0-53.0); Lymphocytes # (A) 0.6 k/uL (1.0-4.8); Lymphocytes % (A) 14 %; MCH 31.1 pg (25.0-35.0); MCHC 34.4 g/dL (31.0-37.0); MCV 90.6 fL (80.0-100.0); Mean Platelet Volume 7.8; Monocytes # (A) 0.4 k/uL (0-1.0); Monocytes % (A) 8 %; Neutrophils # (A) 3.2 k/uL (1.3-7.7); Neutrophils % (A) 72 %; Platelet Count 195 k/uL (150-450); RBC 4.17 m/uL (4.30-5.90); RDW 14.7 % (11.5-15.5); WBC 4.4 k/uL (3.8-10.6)
[2020-06-16 07:11] LABS: Glucose,Whole Blood 77 mg/dL (75-99)
[2020-06-16] MEDS: PANTOPRAZOLE 40 MG TABLET PO SCH (07:32)
[2020-06-16] MEDS: INSULIN PUMP MEAL BOLUS 1 UNIT MISC MISCELLANE SCH (07:35)
[2020-06-16] MEDS: OXcarbazepine 300 MG TAB PO SCH (08:19)
[2020-06-16] MEDS: ASPIRIN 81 MG PO SCH (08:19)
[2020-06-16] MEDS: PRASUGREL 10 MG TAB PO SCH (08:20)
[2020-06-16] MEDS: GABAPENTIN 400 MG CAP PO SCH (08:20)
[2020-06-16] MEDS: METOPROLOL TARTRATE 25 MG TAB PO SCH (08:20)
[2020-06-16] MEDS: MEMANTINE 10 MG TAB PO SCH (08:21)
[2020-06-16] MEDS: amLODIPine 5 MG TAB PO SCH (08:21)
[2020-06-16] MEDS: HEPARIN SODIUM,PORCINE 5,000 UNIT/ML 1 ML VIAL SQ SCH (08:21)
[2020-06-16] MEDS: MAGNESIUM OXIDE 400 MG TAB PO SCH (08:22)
[2020-06-16 09:04] VITALS: TEMP 97.4
[2020-06-16 09:05] VITALS: BP 114/71; PULSE 69; RESP 16
[2020-06-16 10:07] LABS: African American GFR (CKD) 46.7 (60.0-200.0); Anion Gap 4.8 mmol/L (4.00-12.00); BUN/Creat Ratio 12.35 Ratio (12.00-20.00); Calcium 8.8 mg/dL (8.7-10.3); Carbon Dioxide 28.2 mmol/L (21.6-31.8); Non-African American GFR(CKD) 40.3 (60.0-200.0); Potassium 3.8 mmol/L (3.5-5.5)
[2020-06-16 13:05] LABS: Glucose,Whole Blood 92 mg/dL (75-99)
--- NOTE | 2020-06-16 13:07 | P.DS ---
Providers Date of admission: 06/14/20 14:21 Expected date of discharge: 06/16/20 Attending physician: Kim Gusman MD Consults: 06/15/20 11:27 Consult Physician Routine Consulting Provider: Cecile Olivares Consult Reason/Comments: renal insufficency Do you want consulting provider notified?: Yes Primary care physician: eCdric Gold Hospital Course: Final diagnosis Acute renal failure with prerenal acute renal failure with acute tubular necrosis Severe weakness, multifactorial Gait dysfunction History of falls history of coronary artery disease with stents history of CVA, TIA Dementia Diabetes mellitus type 2 Hypertension Hyperlipidemia Insulin pump History of myocardial infarction history of degenerative joint disease history of pneumonia History of kidney disease history of syncopal episodes history of seizure disorder History of peripheral neuropathy History of prostate cancer history of CVA with right-sided weakness history back surgery history of claustrophobia History of depression Obesity with a body mass index of 36.4 Full code Discharge disposition Patient is being discharged in a stable condition with guarded prognosis to [facility] for continued PT/OT therapy. Patient will follow-up with Dr. Gold in the outpatient setting upon discharge. Total time taken is greater than 35 minutes. Hospital course This is a 69-year-old male who was recently admitted with weakness and acute renal failure and was being closely monitored. Patient was seen and evaluated by physical therapy and will be continuing PT/OT therapy at [facility]. Patient does have a history of diabetes and will continue with sliding scale. Continue to monitor blood sugar before meals and at bedtime. Patient provided prescriptions for repeat labs to monitor kidney functions. Current creatinine is 1.7. Currently no reports of chest pain, shortness of breath, or palpitations. Patient is afebrile. No reports of nausea or vomiting and patient is tolerating diet. Patient will be going to [facility] today. On exam vital signs are stable. Temp is 97.4F, pulse is 69, respirations are 16, blood pressure is 114/71, oxygen saturation is 98% on room air. Cardio S1, S2 are muffled. Respiratory system shows diminished breath sounds at the bases with no wheezing or rhonchi noted. Abdomen is soft and obese, and nontender. Nervous system shows diffuse weakness. Please refer to medication reconciliation sheet for a list of medications. Patient Condition at Discharge: Fair Plan - Discharge Summary New Discharge Prescriptions: New INSULIN ASPART (NovoLOG) [NovoLOG (formulary)] 0 unit SQ ACHS #3 vial Pantoprazole [Protonix] 40 mg PO AC-BRKFST tablet.dr Continue Aspirin 81 mg PO DAILY Memantine HCl [Namenda] 10 mg PO BID Atorvastatin Calcium [Lipitor] 80 mg PO HS Torsemide [Demadex] 5 mg PO DAILY PRN PRN Reason: Edema Magnesium Oxide 400 mg PO DAILY Donepezil [Aricept] 10 mg PO HS tab Metoprolol Tartrate [Lopressor] 25 mg PO BID tab Primidone [Mysoline] 250 mg PO HS #5 tab OXcarbazepine [Trileptal] 300 mg PO BID #10 tab rOPINIRole HCL [Requip] 0.25 mg PO BID Thiamine [Vitamin B-1] 100 mg PO DAILY@1500 Escitalopram [Lexapro] 10 mg PO DAILY Folic Acid 1 mg PO DAILY@1500 Prasugrel [Effient] 10 mg PO DAILY Isosorbide Mononitrate ER [Imdur] 30 mg PO DAILY amLODIPine [Norvasc] 5 mg PO DAILY Cholecalciferol (Vitamin D3) [Vitamin D3] 125 mcg PO MOWEFR Fenofibrate Nanocrystallized [Fenofibrate] 145 mg PO HS Multivitamins, Thera [Multivitamin (formulary)] 1 tab PO DAILY@1500 Nitroglycerin Sl Tabs [Nitrostat] 0.4 mg SL Q5M PRN PRN Reason: Chest Pain Gabapentin [Neurontin] 400 mg PO BID #10 cap Discontinued INSULIN LISPRO (For Pump) [humaLOG (For Pump)] 0.01 units SQ-PUMP CONTINUOUS Losartan [Cozaar] 50 mg PO DIRECTED Primidone [Mysoline] 125 mg PO DAILY@1400 Discharge Medication List Aspirin 81 mg PO DAILY 01/12/15 [History] Atorvastatin Calcium [Lipitor] 80 mg PO HS 07/30/17 [History] Memantine HCl [Namenda] 10 mg PO BID 07/30/17 [History] Torsemide [Demadex] 5 mg PO DAILY PRN 02/20/18 [History] Magnesium Oxide 400 mg PO DAILY 12/01/18 [History] Donepezil [Aricept] 10 mg PO HS tab 12/08/18 [Rx] Metoprolol Tartrate [Lopressor] 25 mg PO BID tab 12/08/18 [Rx] OXcarbazepine [Trileptal] 300 mg PO BID #10 tab 12/08/18 [Rx] Primidone [Mysoline] 250 mg PO HS #5 tab 12/08/18 [Rx] Escitalopram [Lexapro] 10 mg PO DAILY 01/06/19 [History] Folic Acid 1 mg PO DAILY@1500 01/06/19 [History] Thiamine [Vitamin B-1] 100 mg PO DAILY@1500 01/06/19 [History] rOPINIRole HCL [Requip] 0.25 mg PO BID 01/06/19 [History] Isosorbide Mononitrate ER [Imdur] 30 mg PO DAILY 04/02/19 [History] Prasugrel [Effient] 10 mg PO DAILY 04/02/19 [History] Cholecalciferol (Vitamin D3) [Vitamin D3] 125 mcg PO MOWEFR 06/13/20 [History] Fenofibrate Nanocrystallized [Fenofibrate] 145 mg PO HS 06/13/20 [History] Multivitamins, Thera [Multivitamin (formulary)] 1 tab PO DAILY@1500 06/13/20 [History] Nitroglycerin Sl Tabs [Nitrostat] 0.4 mg SL Q5M PRN 06/13/20 [History] amLODIPine [Norvasc] 5 mg PO DAILY 06/13/20 [History] Gabapentin [Neurontin] 400 mg PO BID #10 cap 06/16/20 [Rx] INSULIN ASPART (NovoLOG) [NovoLOG (formulary)] 0 unit SQ ACHS #3 vial 06/16/20 [Rx] Pantoprazole [Protonix] 40 mg PO AC-BRKFST tablet. 06/16/20 [Rx] Follow up Appointment(s)/Referral(s): Cedric Gold DO [Primary Care Provider] - 1-2 days (office is closed for the holidays.patient will have to call and schedule own appt.) [facility], [NON-STAFF] - 1-2 Days Ambulatory/Diagnostic Orders: Basic Metabolic Panel [LAB.AMB] Time Frame: 3 Days, Location: None Selected Activity/Diet/Wound Care/Special Instructions: Patient is going to [facility] as tolerated Continue with current consistent carb heart healthy diet Continue to monitor blood sugars before meals and at bedtime and treat accordingly with sliding scale NovoLog sliding scale 0-150 equals 0 units 151-200 equals 2 units 201-250 equals 4 units 251-300 equals 6 units 301-350 equals 8 units 351-400 equals 10 units Please notify provider if blood sugar is 400 or above Repeat BMP lab in 2-3 days to monitor creatinine Discharge Disposition: TRANSFER TO SNF/ECF
--- NOTE | 2020-06-16 19:35 | CONS ---
CONSULTATION REASON FOR CONSULT: Renal failure. HISTORY OF PRESENT ILLNESS: Patient is a 69-year-old male with history of chronic kidney disease, NKF stage III, with baseline creatinine about 1.5 to 1.4 mg/dL secondary to nephrosclerosis. The patient was admitted to the hospital with complaints of increasing shortness of breath, increased weakness. His blood pressure was not significantly low. Heart rate was about 110 per minute. There was evidence of orthostatic hypotension. At home, patient was not on JJ inhibitors or angiotensin receptor blockers. He was maintained on a small dose of Demadex. The patient denies any significant chest pains. Chest x-ray showed normal pulmonary vasculature. The patient was maintained on IV fluids. Serum creatinine staying at about 1.8 to 1.7 mg/dL. PAST MEDICAL HISTORY: CKD, hypertension, type 2 diabetes, hyperlipidemia, history of CVA, TIA, dementia, coronary artery disease, degenerative joint disease. PAST SURGICAL HISTORY: Cardiac catheterization, coronary stent placement, colonoscopy, seed implants for prostate cancer, cataract surgery. SOCIAL HISTORY: Negative for smoking, drug abuse or alcohol abuse. MEDICATIONS: Medications prior to admission included Trileptal, Lopressor, Aricept, Mysoline, Norvasc, Nitrostat, fenofibrate, vitamin D3, Lipitor, Namenda, Demadex, Lexapro, folic acid, Neurontin, Requip, Imdur, Cozaar, vitamin B1, aspirin. PHYSICAL EXAMINATION: Patient is comfortable, awake. He is not in any acute distress. He states overall he is feeling slightly better. Blood pressure was 114/71, heart rate 69 per minute. He is afebrile. EXAMINATION OF THE HEART: S1 and S2. EXAMINATION OF LUNGS: Bilateral breath sounds are heard. ABDOMEN: Soft, non-tender. Examination of lower extremities shows trace edema bilaterally. [employer] P[employer]IATRICIAN exam is grossly intact. LABS: Sodium 141, potassium 3.8, chloride 108. CO2 is 28, BUN 21, creatinine 1.7. ASSESSMENT: 1. Acute kidney injury, most likely related to underlying hypovolemia, postural hypotension. Chest x-ray does not show any significant evidence of CHF. The patient did receive IV fluids post admission. He is currently being considered for discharge to rehab. He is not on any nephrotoxic medications. We will hold off on his diuretics for now but consider restarting the diuretics depending on volume status as outpatient in the next 2 to 3 days. 2. Chronic kidney disease, stage III. Baseline creatinine 1.4 to 1.5 mg/dL secondary to nephrosclerosis. 3. Coronary artery disease with history of coronary stents. 4. History of cerebrovascular accident/transient ischemic attack. 5. History of dementia. PLAN: Hold diuretics for now. Encourage increased oral intake. Monitor blood pressure as outpatient. The patient did receive IV fluids. Monitor closely for volume status. Follow up as outpatient for CKD in 2 to 3 weeks. MMODL / IJN: [id number] /
== END 2020-06-16 14:11 ==
LOC: EC 18:39 → 5NMEDONC 22:22 → OBSVTOIN 06-14 14:21 → INTOOBSV 06-14 14:21 → UNDODISIN 06-16 14:11
PROVIDERS: ADMIT Internal Medicine; ATTEND Internal Medicine
DX: N17.0 Acute kidney failure with tubular necrosis (principal); R53.1 Weakness; R26.9 Unspecified abnormalities of gait and mobility; Z91.81 History of falling; Z20.828 Contact with and (suspected) exposure to other viral communicable diseases; I25.10 Atherosclerotic heart disease of native coronary artery without angina pectoris; I12.9 Hypertensive chronic kidney disease with stage 1 through stage 4 chronic kidney disease, or unspecified chronic kidney disease; E11.22 Type 2 diabetes mellitus with diabetic chronic kidney disease; N18.30 Chronic kidney disease, stage 3 unspecified; E11.42 Type 2 diabetes mellitus with diabetic polyneuropathy; Z79.4 Long term (current) use of insulin; Z96.41 Presence of insulin pump (external) (internal); Z87.891 Personal history of nicotine dependence; Z95.5 Presence of coronary angioplasty implant and graft; F03.90 Unspecified dementia, unspecified severity, without behavioral disturbance, psychotic disturbance, mood disturbance, and anxiety; I95.1 Orthostatic hypotension; E78.5 Hyperlipidemia, unspecified; I25.2 Old myocardial infarction; M19.90 Unspecified osteoarthritis, unspecified site; Z87.01 Personal history of pneumonia (recurrent); Z86.79 Personal history of other diseases of the circulatory system; G40.909 Epilepsy, unspecified, not intractable, without status epilepticus; Z85.46 Personal history of malignant neoplasm of prostate; I69.351 Hemiplegia and hemiparesis following cerebral infarction affecting right dominant side; I69.392 Facial weakness following cerebral infarction; Z98.890 Other specified postprocedural states; F40.240 Claustrophobia; F32.9 Major depressive disorder, single episode, unspecified; E66.9 Obesity, unspecified; Z68.36 Body mass index [BMI] 36.0-36.9, adult; Z92.3 Personal history of irradiation; Z87.442 Personal history of urinary calculi; R29.6 Repeated falls; Z80.52 Family history of malignant neoplasm of bladder; Z98.42 Cataract extraction status, left eye; Z98.41 Cataract extraction status, right eye; Z96.1 Presence of intraocular lens; Z79.82 Long term (current) use of aspirin; Z79.899 Other long term (current) drug therapy; Z79.02 Long term (current) use of antithrombotics/antiplatelets
CPT/HCPCS: 96372 ×3; 96360; 99285; 36415; 93005; 97530 ×2; 97162; 97535 ×2; 97166; 80048 ×3; 82550; 83605; 83735; 84443; 84484; 85025 ×3; 85610; 85730; 81003; 87635; 71045; 72125; 70450; G0378 ×4; J1644 ×3

== ENCOUNTER 2020-07-03 09:35 | Inpatient (IN) | payer MEDICARE ==
[2020-07-03 10:27] LABS: Basophils # (A) 0.2 k/uL (0-0.2); Basophils % (A) 3 %; Eosinophils % (A) 1 %; HCT 38.4 % (39.0-53.0); HGB 13.3 gm/dL (13.0-17.5); Lymphocytes # (A) 0.2 k/uL (1.0-4.8); Lymphocytes % (A) 3 %; MCH 30.5 pg (25.0-35.0); MCHC 34.7 g/dL (31.0-37.0); Mean Platelet Volume 7.7; Monocytes # (A) 0.4 k/uL (0-1.0); Monocytes % (A) 7 %; Neutrophils # (A) 4.8 k/uL (1.3-7.7); Neutrophils % (A) 86 %; Platelet Count 234 k/uL (150-450); RBC 4.36 m/uL (4.30-5.90); RDW 14.2 % (11.5-15.5); WBC 5.5 k/uL (3.8-10.6)
[2020-07-03 10:41] LABS: Albumin 3.7 g/dL (3.5-5.0); Calcium 9.5 mg/dL (8.4-10.2); Total Bilirubin 0.7 mg/dL (0.2-1.3); Total Protein 6.8 g/dL (6.3-8.2)
[2020-07-03] MEDS ORDERED: DEXAMETHASONE SOD PHOSPHATE 4 MG/ML 1 ML VIAL IV STA (10:45)
[2020-07-03 10:57] LABS: D-Dimer 0.46 mg/L FEU (<0.60); Prothrombin Time 10.3 sec (9.0-12.0)
--- NOTE | 2020-07-03 10:57 | XR ---
EXAMINATION TYPE: XR chest 1V portable DATE OF EXAM: 07/03/2020 COMPARISON: Chest x-ray 06/14/2020 HISTORY: Covid positive, shortness of breath TECHNIQUE: Single frontal view of the chest is obtained. FINDINGS: Patient is rotated. There are overlying leads present. No evident pneumothorax or pleural effusion. Cardiac mediastinal silhouette is stable. Right hemidiaphragm remains elevated. Some minima l patchy densities present towards the lung bases. IMPRESSION: Possible atelectasis, correlate for pneumonia
[2020-07-03 10:58] LABS: Partial Thromboplastin Time 19.5 sec (22.0-30.0)
[2020-07-03 10:59] LABS: C Reactive Protein 178.7 mg/L (<10.0); Magnesium 1.8 mg/dL (1.6-2.3); Potassium 4.8 mmol/L (3.5-5.1)
[2020-07-03] MEDS ORDERED: SODIUM CHLORIDE 0.9% 500 ML 500 ML IV ONE (11:33)
[2020-07-03] MEDS ORDERED: ACETAMINOPHEN TAB 325 MG TAB PO STA (11:33)
--- NOTE | 2020-07-03 11:50 | ED ---
SOB HPI - General Chief Complaint: Shortness of Breath Stated Complaint: +covid, SOB Time Seen by Provider: 07/03/20 09:43 Source: patient, EMS Mode of arrival: EMS Limitations: no limitations - History of Present Illness Initial Comments: 69-year-old male history of chronic kidney disease, chronic weakness and inability to ambulate who is currently at [facility], and has been recently diagnosed with Covid 19 infection. Patient states he has been weak for quite some time but it has worsened since his covid diagnosis. pt caretakers at [facility] state he is usually on 2l but needed 4L and was 89% on his 2L of oxygen appearing more short of breath than usual with high fevers. pt states he does feel short of breath, dneies leg swelling, nausea, vomiting, abdominal pain, chest pain. patient has no additional stated complaints. - Related Data Home Medications Medication Instructions Recorded Confirmed Aspirin 81 mg PO DAILY@169901/12/15 07/03/20 Atorvastatin Calcium [Lipitor] 80 mg PO HS@209907/30/17 07/03/20 Torsemide [Demadex] 5 mg PO DAILY PRN 02/20/18 07/03/20 Magnesium Oxide 400 mg PO DAILY@169912/01/18 07/03/20 Escitalopram [Lexapro] 10 mg PO DAILY@209901/06/19 07/03/20 Folic Acid 1 mg PO DAILY@169901/06/19 07/03/20 Thiamine [Vitamin B-1] 100 mg PO DAILY@169901/06/19 07/03/20 rOPINIRole HCL [Requip] 0.25 mg PO BID@0800,169901/06/19 07/03/20 Isosorbide Mononitrate ER [Imdur] 30 mg PO HS@209904/02/19 07/03/20 Prasugrel [Effient] 10 mg PO DAILY@0800 04/02/19 07/03/20 Cholecalciferol (Vitamin D3) 125 mcg PO MOWEFR@169906/13/20 07/03/20 [Vitamin D3 (5000 units)] Fenofibrate Nanocrystallized 145 mg PO HS@209906/13/20 07/03/20 [Fenofibrate] Multivitamins, Thera [Multivitamin 1 tab PO DAILY@169906/13/20 07/03/20 (formulary)] Nitroglycerin Sl Tabs [Nitrostat] 0.4 mg SL Q5M PRN 06/13/20 07/03/20 amLODIPine [Norvasc] 5 mg PO DAILY 06/13/20 07/03/20 Acetaminophen [Tylenol] 650 mg PO Q4H PRN 07/03/20 07/03/20 Ascorbic Acid [Vitamin C] 1,000 mg PO DAILY@169907/03/20 07/03/20 Donepezil [Aricept] 10 mg PO HS@209907/03/20 07/03/20 Enoxaparin [Lovenox] 40 mg SQ DAILY@169907/03/20 07/03/20 Gabapentin [Neurontin] 400 mg PO BID@0800,209907/03/20 07/03/20 Glucerna Shake 1 can PO PC-TID PRN 07/03/20 07/03/20 INSULIN ASPART (NovoLOG) [NovoLOG See Protocol SQ ACHS 07/03/20 07/03/20 (formulary)] Insulin Glargine [Lantus] 10 unit SQ HS@209907/03/20 07/03/20 Ipratropium/Albuter 20-100Mcg 1 puff INHALATION Q6H 07/03/20 07/03/20 [Combivent Respimat 20-100Mcg Inhaler] Magnesium Hydroxide [Milk of 7,200 mg PO DAILY PRN 07/03/20 07/03/20 Magnesia Concentrate] Memantine [Namenda] 10 mg PO BID@0800,169907/03/20 07/03/20 Metoprolol Tartrate [Lopressor] 25 mg PO BID@0800,169907/03/20 07/03/20 Na Phos,M-B/Na Phos,Di-Ba [Fleet 133 ml RECTAL DAILY PRN 07/03/20 07/03/20 Adult] Nystatin 100,000Unit/gm Cream 1 applic TOPICAL Q6H 07/03/20 07/03/20 [Mycostatin Cream] OXcarbazepine [Trileptal] 300 mg PO BID@0800,169907/03/20 07/03/20 Pantoprazole [Protonix] 40 mg PO AC-BRKFST@0600 07/03/20 07/03/20 Primidone [Mysoline] 125 mg PO DAILY@1400 07/03/20 07/03/20 Primidone [Mysoline] 250 mg PO HS@2100 07/03/20 07/03/20 Zinc Sulfate 220 mg PO DAILY@1700 07/03/20 07/03/20 bisacodyL [Dulcolax] 10 mg RECTAL DAILY PRN 07/03/20 07/03/20 guaiFENesin [guaiFENesin Oral 200 mg PO Q4H PRN 07/03/20 07/03/20 Solution] Allergies Allergy/AdvReac Type Severity Reaction Status Date / Time No Known Allergies Allergy Verified 07/03/20 10:29 Review of Systems ROS Statement: Those systems with pertinent positive or pertinent negative responses have been documented in the HPI. ROS Other: All systems not noted in ROS Statement are negative. Past Medical History Past Medical History: Coronary Artery Disease (CAD), Cancer, Chest Pain / Angina, CVA/TIA, Dementia, Diabetes Mellitus, Hyperlipidemia, Hypertension, Myocardial Infarction ([place]), Osteoarthritis (OA), Pneumonia, Renal Disease, Skin Disorder Additional Past Medical History / Comment(s): SEE DR BLEVINS'S NOTE FOR CARDIAC HX. HX OF SYNCOPAL EPISODES OF UNKNOWN CAUSE. Diabetes mellitus currently on insulin pump. SHORT TERM MEMORY LOSS. 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 COLONOCOSPY, LUMBAR EPIDURAL INJ, total 4 cardiac stents (2010 1 stent and 2014 3 stents),juventino cataracts/lens implants, colonoscopy, gold seed implants for prostate cancer. back surgery (11/2018) Past Anesthesia/Blood Transfusion Reactions: Motion Sickness Additional Past Anesthesia/Blood Transfusion Reaction / Comment(s): CLAUSTROPHOBIC Date of Last Stent Placement:: 2014 Past Psychological History: No Psychological Hx Reported, Depression Smoking Status: Current some day smoker Past Alcohol Use History: None Reported Past Drug Use History: None Reported - Past Family History Father Family Medical History: Cancer Additional Family Medical History / Comment(s): FATHER HAD BLADDER CANCER AND OF THIS IN HIS 40'S Mother Family Medical History: Cancer, Dementia Additional Family Medical History / Comment(s): UTERINE CANCER. Mother of dementia at the age of 89yrs. General Exam - General Exam Comments Initial Comments: General: The patient is awake and alert, in no distress Eye: Pupils are equal, round and reactive to light, extra-ocular movements are intact. No nystagmus. There is normal conjunctiva bilaterally. No signs of icterus. Ears, nose, mouth and throat: There are moist mucous membranes and no oral lesions. Neck: The neck is supple, there is no tenderness or JVD. Cardiovascular: There is a regular rate and rhythm. No murmur, rub or gallop is appreciated. Respiratory: Respirations are mildly-labored, breath sounds are equal. No wheezes, stridor, rales, or rhonchi. Gastrointestinal:Soft, non-distended, non-tender abdomen without masses or organomegaly noted. There is no rebound or guarding present. Musculoskeletal: Normal ROM, no tenderness. Strength 5/5. Sensation intact. Radial and DP pulses equal bilaterally 2+. Neurological: A&O x 3. CN II-XII intact grossly, There are no obvious motor or sensory deficits. Coordination appears grossly intact. Speech is normal. Skin: Skin is warm and dry and no rashes or lesions are noted. No LE edema. Psychiatric: Cooperative, appropriate mood & affect, normal judgment. Limitations: no limitations Course Vital Signs 07/03/20 07/03/20 09:42 10:24 Temperature 99.8 F H 99.8 F H Pulse Rate 90 93 Respiratory 18 20 Rate Blood Pressure 135/95 150/98 O2 Sat by Pulse 97 95 Oximetry Medical Decision Making - Medical Decision Making Labs reveal significantly elevated CRP. Pt oxygen low on baseline of 2L. pt 95% on 3L. Given patient dexmethasone, rocephin and azithromycin. pt will be admitted for respiratory status monitoring as his respirations are mildly labored. Dimer (-). EKG no specific findings. pt admitted to Dr. Carty. - Lab Data Result diagrams: 07/03/20 10:18 07/03/20 10:18 Lab Results 07/03/20 07/03/20 07/03/20 Range/Units 10:18 10:18 10:18 WBC 5.5 (3.8-10.6) k/uL RBC 4.36 (4.30-5.90) m/uL Hgb 13.3 (13.0-17.5) gm/dL Hct 38.4 L (39.0-53.0) % MCV 88.0 (80.0-100.0) fL MCH 30.5 (25.0-35.0) pg MCHC 34.7 (31.0-37.0) g/dL RDW 14.2 (11.5-15.5) % Plt Count 234 (150-450) k/uL MPV 7.7 Neutrophils % 86 % Lymphocytes % 3 % Monocytes % 7 % Eosinophils % 1 % Basophils % 3 % Neutrophils # 4.8 (1.3-7.7) k/uL Lymphocytes # 0.2 L (1.0-4.8) k/uL Monocytes # 0.4 (0-1.0) k/uL Eosinophils # 0.0 (0-0.7) k/uL Basophils # 0.2 (0-0.2) k/uL PT 10.3 (9.0-12.0) sec INR 1.0 (<1.2) APTT 19.5 L (22.0-30.0) sec D-Dimer 0.46 (<0.60) mg/L FEU Sodium 137 (137-145) mmol/L Potassium 4.8 (3.5-5.1) mmol/L Chloride 104 (98-107) mmol/L Carbon Dioxide 26 (22-30) mmol/L Anion Gap 7 mmol/L BUN 23 H (9-20) mg/dL Creatinine 1.52 H (0.66-1.25) mg/dL Est GFR (CKD-EPI)AfAm 54 (>60 ml/min/1.73 sqM) Est GFR (CKD-EPI)NonAf 46 (>60 ml/min/1.73 sqM) Glucose 202 H (74-99) mg/dL Plasma Lactic Acid Abdirizak (0.7-2.0) mmol/L Calcium 9.5 (8.4-10.2) mg/dL Magnesium 1.8 (1.6-2.3) mg/dL Total Bilirubin 0.7 (0.2-1.3) mg/dL AST 38 (17-59) U/L ALT 24 (4-49) U/L Alkaline Phosphatase 60 (38-126) U/L Lactate Dehydrogenase 704 H (313-618) U/L Troponin I (0.000-0.034) ng/mL C-Reactive Protein 178.7 H (<10.0) mg/L NT-Pro-B Natriuret Pep pg/mL Total Protein 6.8 (6.3-8.2) g/dL Albumin 3.7 (3.5-5.0) g/dL 07/03/20 07/03/20 07/03/20 Range/Units 10:18 10:18 10:18 WBC (3.8-10.6) k/uL RBC (4.30-5.90) m/uL Hgb (13.0-17.5) gm/dL Hct (39.0-53.0) % MCV (80.0-100.0) fL MCH (25.0-35.0) pg MCHC (31.0-37.0) g/dL RDW (11.5-15.5) % Plt Count (150-450) k/uL MPV Neutrophils % % Lymphocytes % % Monocytes % % Eosinophils % % Basophils % % Neutrophils # (1.3-7.7) k/uL Lymphocytes # (1.0-4.8) k/uL Monocytes # (0-1.0) k/uL Eosinophils # (0-0.7) k/uL Basophils # (0-0.2) k/uL PT (9.0-12.0) sec INR (<1.2) APTT (22.0-30.0) sec D-Dimer (<0.60) mg/L FEU Sodium (137-145) mmol/L Potassium (3.5-5.1) mmol/L Chloride (98-107) mmol/L Carbon Dioxide (22-30) mmol/L Anion Gap mmol/L BUN (9-20) mg/dL Creatinine (0.66-1.25) mg/dL Est GFR (CKD-EPI)AfAm (>60 ml/min/1.73 sqM) Est GFR (CKD-EPI)NonAf (>60 ml/min/1.73 sqM) Glucose (74-99) mg/dL Plasma Lactic Acid Abdirizak 1.1 (0.7-2.0) mmol/L Calcium (8.4-10.2) mg/dL Magnesium (1.6-2.3) mg/dL Total Bilirubin (0.2-1.3) mg/dL AST (17-59) U/L ALT (4-49) U/L Alkaline Phosphatase (38-126) U/L Lactate Dehydrogenase (313-618) U/L Troponin I <0.012 (0.000-0.034) ng/mL C-Reactive Protein (<10.0) mg/L NT-Pro-B Natriuret Pep 130 pg/mL Total Protein (6.3-8.2) g/dL Albumin (3.5-5.0) g/dL Disposition Clinical Impression: COVID-19, Dyspnea, Cough Disposition: ADMITTED IP TO THIS [facility] Condition: Stable Is patient prescribed a controlled substance at d/c from ED?: No Referrals: Karsten Avalos DO [Primary Care Provider] - 1-2 days Time of Disposition: 11:31 Decision to Admit Reason: Admit from EC Decision Date: 07/03/20 Decision Time: 11:31
[2020-07-03] MEDS ORDERED: AZITHROMYCIN 500 MG in SODIUM CHLORIDE 0.9% 250 ML IVPB STA (11:55)
[2020-07-03] MEDS ORDERED: NALOXONE 0.4 MG/ML 1 ML VIAL IV PRN (11:55)
[2020-07-03] MEDS: SODIUM CHLORIDE 0.9% 1,000 ML IV SCH (12:29)
[2020-07-03] MEDS ORDERED: NA PHOS,M-B/NA PHOS,DI-BA 133 ML ENEMA RECTAL PRN (13:25)
[2020-07-03] MEDS ORDERED: MAGNESIUM HYDROXIDE 2,400 MG/10 ML CUP PO PRN (13:25)
[2020-07-03] MEDS ORDERED: NON FORMULARY DRUG (Glucerna Shake 1 CAN Liquid) PO PRN (13:25)
[2020-07-03] MEDS: PRIMIDONE 250 MG TAB PO SCH ×2 (14:26→21:21)
[2020-07-03] MEDS: NYSTATIN 100,000UNIT/GM CREAM 30 GM TUBE TOPICAL SCH ×2 (14:26→21:21)
--- NOTE | 2020-07-03 14:55 | P.HPIM ---
History of Present Illness 69-year-old male history of chronic kidney disease, chronic weakness and inability to ambulate who is currently at [facility], and has been recently diagnosed with Covid 19 infection. Patient states he has been weak for quite some time but it has worsened since his covid diagnosis. pt caretakers at [facility] state he is usually on 2l but needed 4L and was 89% on his 2L of oxygen appearing more short of breath than usual with high fevers. pt states he does feel short of breath, dneies leg swelling, nausea, vomiting, abdominal pain, chest pain. patient has no additional stated complaints. Patient says he has symptoms for about 14 days and he was diagnosed with Covid for about 14 years ago although patient is alert and oriented 3 patient does have dementia and not a reliable historian. Patient had 1 positive Covid tests in the hospital of this month. was complaining of generalized tiredness and weakness does have low-grade fever. Review of Systems REVIEW OF SYSTEMS: CONSTITUTIONAL: As mentioned in HPI HEENT: No recent visual problems or hearing problems. Denied any sore throat. CARDIOVASCULAR: No chest pain, orthopnea, PND, no palpitations, no syncope. PULMONARY: no hemoptysis. GASTROINTESTINAL: No diarrhea, no nausea, no vomiting, no abdominal pain. NEUROLOGICAL: No headaches, no weakness, no numbness. HEMATOLOGICAL: Denies any bleeding or petechiae. GENITOURINARY: Denies any burning micturition, frequency, or urgency. MUSCULOSKELETAL/RHEUMATOLOGICAL: Denies any joint pain, swelling, or any muscle pain. ENDOCRINE: Denies any polyuria or polydipsia. The rest of the 14-point review of systems is negative. Past Medical History Past Medical History: Coronary Artery Disease (CAD), Cancer, Chest Pain / Angina, CVA/TIA, Dementia, Diabetes Mellitus, Hyperlipidemia, Hypertension, Myocardial Infarction ([place]), Osteoarthritis (OA), Pneumonia, Renal Disease, Skin Disorder Additional Past Medical History / Comment(s): SEE DR BLEVINS'S NOTE FOR CARDIAC HX. HX OF SYNCOPAL EPISODES OF UNKNOWN CAUSE. Diabetes mellitus currently on insulin pump. SHORT TERM MEMORY LOSS. 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 COLONOCOSPY, LUMBAR EPIDURAL INJ, total 4 cardiac stents (2010 1 stent and 2014 3 stents),juventino cataracts/lens implants, colonoscopy, gold seed implants for prostate cancer. back surgery (11/2018) Past Anesthesia/Blood Transfusion Reactions: Motion Sickness Additional Past Anesthesia/Blood Transfusion Reaction / Comment(s): CLAUSTROPHOBIC Date of Last Stent Placement:: 2014 Past Psychological History: No Psychological Hx Reported, Depression Additional Psychological History / Comment(s): PT LIVES AT HOME WITH HIS KWAN IS INDEPENDANT WITH HIS OWN CARE. USED TO WORK FOR [employer]. SHORT TERM MEMORY LOSS. USES A WALKER. Smoking Status: Former smoker Past Alcohol Use History: None Reported Additional Past Alcohol Use History / Comment(s): STARTED SMOKING AROUND AGE 48(1998) SMOKE A PIPE OR CIGARS 2-3 times a week but quit 04/2016. Past Drug Use History: None Reported - Past Family History Father Family Medical History: Cancer Additional Family Medical History / Comment(s): FATHER HAD BLADDER CANCER AND OF THIS IN HIS 40'S Mother Family Medical History: Cancer, Dementia Additional Family Medical History / Comment(s): UTERINE CANCER. Mother of dementia at the age of 89yrs. Medications and Allergies Home Medications Medication Instructions Recorded Confirmed Type Aspirin 81 mg PO DAILY@169901/12/15 07/03/20 History Atorvastatin Calcium [Lipitor] 80 mg PO HS@209907/30/17 07/03/20 History Torsemide [Demadex] 5 mg PO DAILY PRN 02/20/18 07/03/20 History Magnesium Oxide 400 mg PO DAILY@169912/01/18 07/03/20 History Escitalopram [Lexapro] 10 mg PO DAILY@209901/06/19 07/03/20 History Folic Acid 1 mg PO DAILY@169901/06/19 07/03/20 History Thiamine [Vitamin B-1] 100 mg PO DAILY@169901/06/19 07/03/20 History rOPINIRole HCL [Requip] 0.25 mg PO BID@00,1700 01/06/19 07/03/20 History Isosorbide Mononitrate ER [Imdur] 30 mg PO HS@209904/02/19 07/03/20 History Prasugrel [Effient] 10 mg PO DAILY@0800 04/02/19 07/03/20 History Cholecalciferol (Vitamin D3) 125 mcg PO MOWEFR@169906/13/20 07/03/20 History [Vitamin D3 (5000 units)] Fenofibrate Nanocrystallized 145 mg PO HS@209906/13/20 07/03/20 History [Fenofibrate] Multivitamins, Thera [Multivitamin 1 tab PO DAILY@0 06/13/20 07/03/20 History (formulary)] Nitroglycerin Sl Tabs [Nitrostat] 0.4 mg SL Q5M PRN 06/13/20 07/03/20 History amLODIPine [Norvasc] 5 mg PO DAILY 06/13/20 07/03/20 History Acetaminophen [Tylenol] 650 mg PO Q4H PRN 07/03/20 07/03/20 History Ascorbic Acid [Vitamin C] 1,000 mg PO DAILY@0 07/03/20 07/03/20 History Donepezil [Aricept] 10 mg PO HS@209907/03/20 07/03/20 History Enoxaparin [Lovenox] 40 mg SQ DAILY@169907/03/20 07/03/20 History Gabapentin [Neurontin] 400 mg PO BID@0800,209907/03/20 07/03/20 History Glucerna Shake 1 can PO PC-TID PRN 07/03/20 07/03/20 History INSULIN ASPART (NovoLOG) [NovoLOG See Protocol SQ ACHS 07/03/20 07/03/20 History (formulary)] Insulin Glargine [Lantus] 10 unit SQ HS@209907/03/20 07/03/20 History Ipratropium/Albuter 20-100Mcg 1 puff INHALATION Q6H 07/03/20 07/03/20 History [Combivent Respimat 20-100Mcg Inhaler] Magnesium Hydroxide [Milk of 7,200 mg PO DAILY PRN 07/03/20 07/03/20 History Magnesia Concentrate] Memantine [Namenda] 10 mg PO BID@0800,1700 07/03/20 07/03/20 History Metoprolol Tartrate [Lopressor] 25 mg PO BID@0800,1700 07/03/20 07/03/20 History Na Phos,M-B/Na Phos,Di-Ba [Fleet 133 ml RECTAL DAILY PRN 07/03/20 07/03/20 History Adult] Nystatin 100,000Unit/gm Cream 1 applic TOPICAL Q6H 07/03/20 07/03/20 History [Mycostatin Cream] OXcarbazepine [Trileptal] 300 mg PO BID@0800,1700 07/03/20 07/03/20 History Pantoprazole [Protonix] 40 mg PO AC-BRKFST@0600 07/03/20 07/03/20 History Primidone [Mysoline] 125 mg PO DAILY@1400 07/03/20 07/03/20 History Primidone [Mysoline] 250 mg PO HS@2100 07/03/20 07/03/20 History Zinc Sulfate 220 mg PO DAILY@1700 07/03/20 07/03/20 History bisacodyL [Dulcolax] 10 mg RECTAL DAILY PRN 07/03/20 07/03/20 History guaiFENesin [guaiFENesin Oral 200 mg PO Q4H PRN 07/03/20 07/03/20 History Solution] Allergies Allergy/AdvReac Type Severity Reaction Status Date / Time No Known Allergies Allergy Verified 07/03/20 10:29 Physical Exam Vitals: Vital Signs Temp Pulse Resp BP Pulse Ox 07/03/20 14:02 21 07/03/20 12:35 99.8 F H 98 21 162/91 96 07/03/20 12:21 98 21 162/91 96 07/03/20 10:24 99.8 F H 93 20 150/98 95 07/03/20 09:42 99.8 F H 90 18 135/95 97 Intake and Output 07/02/20 07/03/20 07/03/20 22:59 06:59 14:59 Other: Voiding Method External Catheter Weight 124.738 kg PHYSICAL EXAMINATION: GENERAL: The patient is alert and oriented x3, not in any acute distress. Obese HEENT: Pupils are round and equally reacting to light. EOMI. No scleral icterus. No conjunctival pallor. Normocephalic, atraumatic. No pharyngeal erythema. No thyromegaly. CARDIOVASCULAR: S1 and S2 present. No murmurs, rubs, or gallops. PULMONARY: Chest is clear to auscultation, no wheezing or crackles. ABDOMEN: Soft, nontender, nondistended, normoactive bowel sounds. No palpable organomegaly. MUSCULOSKELETAL: No joint swelling or deformity. EXTREMITIES: No cyanosis, clubbing, or pedal edema. NEUROLOGICAL: Gross neurological examination did not reveal any focal deficits. SKIN: No rashes. Note: Because of COVID 19 isolation, some of the history and physical exam findings are indirect and obtained from nursing staff, and other physician examinations to avoid unnecessary contact with the patient. Results CBC & Chem 7: 07/03/20 10:18 07/03/20 10:18 Labs: Abnormal Lab Results - Last 24 Hours (Table) 07/03/20 07/03/20 07/03/20 Range/Units 10:18 10:18 10:18 Hct 38.4 L (39.0-53.0) % Lymphocytes # 0.2 L (1.0-4.8) k/uL APTT 19.5 L (22.0-30.0) sec BUN 23 H (9-20) mg/dL Creatinine 1.52 H (0.66-1.25) mg/dL Glucose 202 H (74-99) mg/dL Lactate Dehydrogenase 704 H (313-618) U/L C-Reactive Protein 178.7 H (<10.0) mg/L Thrombosis Risk Factor Assmnt - Choose All That Apply Any of the Below Risk Factors Present?: Yes Each Factor Represents 1 point: Obesity (BMI >25), Serious lung disease incl. pneumonia (< 1month) Each Risk Factor Represents 2 Points: Age 61-74 years Other congenital or acquired thrombophilia - If yes, enter type in comment: No Thrombosis Risk Factor Assessment Total Risk Factor Score: 4 Thrombosis Risk Factor Assessment Level: Moderate Risk Assessment and Plan Plan: -Acute hypoxic respiratory failure secondary to over and 19 pneumonia: Patient was started on Decadron, zinc supplementation. Patient received the Rocephin and is otherwise there is no evidence of bacterial pneumonia at this time. Pulmonology was consulted. -Chronic kidney disease stage 3 -COPD without any significant excessive patient is non-or seizure disorder for which patient is on Trileptal which will be continued -Hypertension -Type 2 diabetes mellitus with a diabetic peripheral neuropathy -Coronary artery disease with stenting in the past -Prostate cancer status post radiation therapy in the past -Several vascular accident in the past leading to generalized medical labile 80 and vascular dementia. -Coronary artery disease -Hyperlipidemia DVT prophylaxis was percutaneous heparin considering his chronic kidney disease better to avoid Lovenox. GI prophylaxis with Protonix
[2020-07-03] MEDS: IPRATROPIUM-ALBUTEROL 3 ML NEB INHALATION SCH ×2 (15:15→21:06)
[2020-07-03] MEDS: MAGNESIUM OXIDE 400 MG TAB PO SCH (16:18)
[2020-07-03] MEDS: ZINC SULFATE 220 MG CAP PO SCH (16:18)
[2020-07-03] MEDS: THIAMINE 100 MG TAB PO SCH (16:18)
[2020-07-03] MEDS: METOPROLOL TARTRATE 25 MG TAB PO SCH (16:18)
[2020-07-03] MEDS: OXcarbazepine 300 MG TAB PO SCH (16:19)
[2020-07-03] MEDS: ASCORBIC ACID 500 MG TAB PO SCH (16:19)
[2020-07-03] MEDS: MULTIVITAMINS, THERA 1 EACH TAB PO SCH (16:19)
[2020-07-03] MEDS: dexAMETHasone 2 MG TAB PO SCH (16:19)
[2020-07-03] MEDS: ASPIRIN 81 MG PO SCH (16:19)
[2020-07-03] MEDS: FOLIC ACID 1 MG TAB PO SCH (16:19)
[2020-07-03] MEDS: HEPARIN SODIUM,PORCINE 5,000 UNIT/ML 1 ML VIAL SQ SCH ×2 (16:19→23:16)
[2020-07-03] MEDS: MEMANTINE 10 MG TAB PO SCH (16:19)
[2020-07-03 16:46] LABS: Glucose,Whole Blood 284 mg/dL (75-99)
[2020-07-03] MEDS ORDERED: ENOXAPARIN 40 MG/0.4 ML SYRINGE SQ SCH (17:00)
[2020-07-03] MEDS: INSULIN ASPART (NovoLOG) 100 UNIT/ML VIAL SQ SCH ×2 (17:06→21:21)
[2020-07-03 17:21] LABS: Ferritin 140.3 ng/mL (22.0-322.0)
[2020-07-03] MEDS ORDERED: INSULIN DETEMIR (LEVEMIR) 100 UNIT/ML SYR SQ SCH (21:00)
[2020-07-03 21:12] LABS: Glucose,Whole Blood 323 mg/dL (75-99)
[2020-07-03] MEDS: ISOSORBIDE MONONITRATE ER 30 MG TAB.ER.24H PO SCH (21:20)
[2020-07-03] MEDS: GABAPENTIN 100 MG CAP PO SCH (21:20)
[2020-07-03] MEDS: ATORVASTATIN 80 MG TAB PO SCH (21:20)
[2020-07-03] MEDS: DONEPEZIL 10 MG TAB PO SCH (21:20)
[2020-07-03] MEDS: FENOFIBRATE 160 MG TAB PO SCH (21:20)
[2020-07-03] MEDS: ESCITALOPRAM 10 MG TAB PO SCH (21:21)
[2020-07-04] MEDS: NYSTATIN 100,000UNIT/GM CREAM 30 GM TUBE TOPICAL SCH ×5 (01:54→23:23)
[2020-07-04] MEDS: ALBUTEROL HFA INHALER INHALATION SCH ×4 (02:54→20:32)
[2020-07-04] MEDS: PANTOPRAZOLE 40 MG TABLET PO SCH (06:07)
[2020-07-04] MEDS: SODIUM CHLORIDE 0.9% 1,000 ML IV SCH ×2 (06:08→15:45)
[2020-07-04 07:00] LABS: Glucose,Whole Blood 258 mg/dL (75-99)
[2020-07-04] MEDS: INSULIN ASPART (NovoLOG) 100 UNIT/ML VIAL SQ SCH ×4 (07:53→21:04)
[2020-07-04] MEDS: HEPARIN SODIUM,PORCINE 5,000 UNIT/ML 1 ML VIAL SQ SCH ×3 (07:57→23:14)
[2020-07-04] MEDS: GABAPENTIN 100 MG CAP PO SCH ×2 (07:58→21:02)
[2020-07-04] MEDS: METOPROLOL TARTRATE 25 MG TAB PO SCH ×2 (07:58→17:22)
[2020-07-04] MEDS: amLODIPine 5 MG TAB PO SCH (07:58)
[2020-07-04] MEDS: OXcarbazepine 300 MG TAB PO SCH ×2 (07:58→17:18)
[2020-07-04] MEDS: MEMANTINE 10 MG TAB PO SCH ×2 (07:59→17:22)
[2020-07-04] MEDS: PRASUGREL 10 MG TAB PO SCH (07:59)
[2020-07-04] MEDS: dexAMETHasone 2 MG TAB PO SCH (07:59)
[2020-07-04 11:28] LABS: Glucose,Whole Blood 252 mg/dL (75-99)
[2020-07-04] MEDS ORDERED: REMDESIVIR 200 MG in SODIUM CHLORIDE 0.9% 250 ML IVPB ONE (12:00)
--- NOTE | 2020-07-04 14:57 | P.CNPUL ---
History of Present Illness Consult date: 07/04/20 Reason for consult: dyspnea History of present illness: 69-year-old male patient is very well-known to me. He is a [place] [facility] resident. I took care of him for pneumonia and mediastinal lymphadenopathy and he ultimately improved many years back. He is currently at [facility]. He was brought in for hypoxemia. He is usually on room air oxygen and he required 4 L and he was weaned down to 2 L. His coronavirus was positive on 06/27/[facility]. He was running low-grade fever. His pro-calcitonin level is 0.5 and his blood cultures positive for coagulase-negative staph. LDH is 704, CRP is at 178 and the creatinine is at 1.52. He is currently on Decadron. No nausea. No vomiting. No abdominal pain. No altered mentation. No chest pain. Based on those symptoms, the patient came into the hospital and he was admitted for further treatment. Note that he is currently comfortable sitting up on a chair. No altered mentation. 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 Review of Systems Constitutional: Reports fatigue, Reports fever, Reports lethargy, Reports weakness Eyes: bilateral decreased vision, denies as per HPI, denies blurred vision, denies bulging eye, denies diplopia, denies discharge, denies dry eye, denies irritation, denies itching, denies pain, denies photophobia, denies loss of peripheral vision, denies loss of vision, denies tunnel vision/blind spots Ears: bilateral: decreased hearing, deny: ear discharge, earache, tinnitus Ears, nose, mouth and throat: Denies headache, Denies sore throat Breasts: absent: as per HPI, gynecomastia Cardiovascular: Reports decreased exercise tolerance, Reports dyspnea on exertion Respiratory: Reports dyspnea Gastrointestinal: Reports as per HPI Genitourinary: Reports decreased libido Musculoskeletal: Reports as per HPI Musculoskeletal: absent: ankle pain, ankle stiffness, ankle swelling Integumentary: Reports as per HPI Neurological: Reports as per HPI, Reports memory loss, Reports weakness Psychiatric: Reports as per HPI Endocrine: Reports as per HPI Hematologic/Lymphatic: Reports as per HPI Allergic/Immunologic: Reports as per HPI Past Medical History Past Medical History: Coronary Artery Disease (CAD), Cancer, Chest Pain / Angina, CVA/TIA, Dementia, Diabetes Mellitus, Hyperlipidemia, Hypertension, Myocardial Infarction (CT), Osteoarthritis (OA), Pneumonia, Renal Disease, Skin Disorder Additional Past Medical History / Comment(s): SEE DR BLEVINS'S NOTE FOR CARDIAC HX. HX OF SYNCOPAL EPISODES OF UNKNOWN CAUSE. Diabetes mellitus currently on insulin pump. SHORT TERM MEMORY LOSS. 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 COLONOCOSPY, LUMBAR EPIDURAL INJ, total 4 cardiac stents (2010 1 stent and 2014 3 stents),juventino cataracts/lens implants, colonoscopy, gold seed implants for prostate cancer. back surgery (11/2018) Past Anesthesia/Blood Transfusion Reactions: Motion Sickness Additional Past Anesthesia/Blood Transfusion Reaction / Comment(s): CLAUSTROPHOBIC Date of Last Stent Placement:: 2014 Past Psychological History: No Psychological Hx Reported, Depression Additional Psychological History / Comment(s): PT LIVES AT HOME WITH HIS KWAN IS INDEPENDANT WITH HIS OWN CARE. 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 SHORT TERM MEMORY LOSS. USES A WALKER. Smoking Status: Former smoker Past Alcohol Use History: None Reported Additional Past Alcohol Use History / Comment(s): STARTED SMOKING AROUND AGE 48(1998) SMOKE A PIPE OR CIGARS 2-3 times a week but quit 04/2016. Past Drug Use History: None Reported - Past Family History Father Family Medical History: Cancer Additional Family Medical History / Comment(s): FATHER HAD BLADDER CANCER AND OF THIS IN HIS 40'S Mother Family Medical History: Cancer, Dementia Additional Family Medical History / Comment(s): UTERINE CANCER. Mother of dementia at the age of 89yrs. Medications and Allergies Home Medications Medication Instructions Recorded Confirmed Type Aspirin 81 mg PO DAILY@1700 01/12/15 07/03/20 History Atorvastatin Calcium [Lipitor] 80 mg PO HS@2100 07/30/17 07/03/20 History Torsemide [Demadex] 5 mg PO DAILY PRN 02/20/18 07/03/20 History Magnesium Oxide 400 mg PO DAILY@169912/01/18 07/03/20 History Escitalopram [Lexapro] 10 mg PO DAILY@209901/06/19 07/03/20 History Folic Acid 1 mg PO DAILY@169901/06/19 07/03/20 History Thiamine [Vitamin B-1] 100 mg PO DAILY@169901/06/19 07/03/20 History rOPINIRole HCL [Requip] 0.25 mg PO BID@0800,169901/06/19 07/03/20 History Isosorbide Mononitrate ER [Imdur] 30 mg PO HS@209904/02/19 07/03/20 History Prasugrel [Effient] 10 mg PO DAILY@79904/02/19 07/03/20 History Cholecalciferol (Vitamin D3) 125 mcg PO MOWEFR@169906/13/20 07/03/20 History [Vitamin D3 (5000 units)] Fenofibrate Nanocrystallized 145 mg PO HS@209906/13/20 07/03/20 History [Fenofibrate] Multivitamins, Thera [Multivitamin 1 tab PO DAILY@169906/13/20 07/03/20 History (formulary)] Nitroglycerin Sl Tabs [Nitrostat] 0.4 mg SL Q5M PRN 06/13/20 07/03/20 History amLODIPine [Norvasc] 5 mg PO DAILY 06/13/20 07/03/20 History Acetaminophen [Tylenol] 650 mg PO Q4H PRN 07/03/20 07/03/20 History Ascorbic Acid [Vitamin C] 1,000 mg PO DAILY@169907/03/20 07/03/20 History Donepezil [Aricept] 10 mg PO HS@209907/03/20 07/03/20 History Enoxaparin [Lovenox] 40 mg SQ DAILY@169907/03/20 07/03/20 History Gabapentin [Neurontin] 400 mg PO BID@0800,209907/03/20 07/03/20 History Glucerna Shake 1 can PO PC-TID PRN 07/03/20 07/03/20 History INSULIN ASPART (NovoLOG) [NovoLOG See Protocol SQ ACHS 07/03/20 07/03/20 History (formulary)] Insulin Glargine [Lantus] 10 unit SQ HS@2100 07/03/20 07/03/20 History Ipratropium/Albuter 20-100Mcg 1 puff INHALATION Q6H 07/03/20 07/03/20 History [Combivent Respimat 20-100Mcg Inhaler] Magnesium Hydroxide [Milk of 7,200 mg PO DAILY PRN 07/03/20 07/03/20 History Magnesia Concentrate] Memantine [Namenda] 10 mg PO BID@0800,1700 07/03/20 07/03/20 History Metoprolol Tartrate [Lopressor] 25 mg PO BID@0800,1700 07/03/20 07/03/20 History Na Phos,M-B/Na Phos,Di-Ba [Fleet 133 ml RECTAL DAILY PRN 07/03/20 07/03/20 History Adult] Nystatin 100,000Unit/gm Cream 1 applic TOPICAL Q6H 07/03/20 07/03/20 History [Mycostatin Cream] OXcarbazepine [Trileptal] 300 mg PO BID@0800,1700 07/03/20 07/03/20 History Pantoprazole [Protonix] 40 mg PO AC-BRKFST@0600 07/03/20 07/03/20 History Primidone [Mysoline] 125 mg PO DAILY@1400 07/03/20 07/03/20 History Primidone [Mysoline] 250 mg PO HS@2100 07/03/20 07/03/20 History Zinc Sulfate 220 mg PO DAILY@1700 07/03/20 07/03/20 History bisacodyL [Dulcolax] 10 mg RECTAL DAILY PRN 07/03/20 07/03/20 History guaiFENesin [guaiFENesin Oral 200 mg PO Q4H PRN 07/03/20 07/03/20 History Solution] Allergies Allergy/AdvReac Type Severity Reaction Status Date / Time No Known Allergies Allergy Verified 07/03/20 10:29 Physical Exam Vitals: Vital Signs Temp Pulse Pulse Resp BP BP BP 07/04/20 10:00 98.5 F 77 18 151/77 01/18/21 07:45 18 07/04/20 05:48 97.5 F L 71 18 145/70 07/04/20 02:49 98.2 F 84 17 135/69 07/03/20 22:30 97.7 F 81 18 149/86 07/03/20 19:35 76 22 07/03/20 17:40 98.2 F 76 22 158/83 07/03/20 14:02 21 07/03/20 14:00 99.1 F 99 24 176/91 07/03/20 12:35 99.8 F H 98 21 162/91 07/03/20 12:21 98 21 162/91 Pulse Ox 07/04/20 10:00 92 L 07/04/20 07:45 07/04/20 05:48 96 07/04/20 02:49 95 07/03/20 22:30 94 L 07/03/20 19:35 07/03/20 17:40 95 07/03/20 14:02 07/03/20 14:00 92 L 07/03/20 12:35 96 07/03/20 12:21 96 Intake and Output 07/03/20 07/04/20 07/04/20 22:59 06:59 14:59 Output Total 600 Balance -600 Output: Urine 600 Other: Voiding Method External Catheter # Voids 200 Gen. appearance the patient is awake, comfortable not in distress sitting up on a chair. He is currently on 3 L of oxygen by nasal cannula. Head exam was generally normal. There was no scleral icterus or corneal arcus. Mucous membranes were moist. Neck was supple and without jugular venous distension, thyromegaly, or carotid bruits. Carotids were easily palpable bilaterally. There was no adenopathy. Lungs sounds are diminished otherwise clear. Few crackles in lung bases. Cardiac exam revealed the PMI to be normally situated and sized. The rhythm was regular and no extrasystoles were noted during several minutes of auscultation. The first and second heart sounds were normal and physiologic splitting of the second heart sound was noted. There were no murmurs, rubs, clicks, or gallops. Abdominal exam revealed normal bowel sounds. The abdomen was soft, non-tender, and without masses, organomegaly, or appreciable enlargement of the abdominal aorta. Examination of the extremities revealed easily palpable radial, femoral and pedal pulses. There was no cyanosis, clubbing or edema. Examination of the skin revealed no evidence of significant rashes, suspicious appearing nevi or other concerning lesions. Results - Laboratory Findings CBC and BMP: 07/03/20 10:18 07/03/20 10:18 PT/INR, D-dimer PT 10.3 sec (9.0-12.0) 07/03/20 10:18 INR 1.0 (<1.2) 07/03/20 10:18 D-Dimer 0.46 mg/L FEU (<0.60) 07/03/20 10:18 Abnormal lab findings: Abnormal Labs 07/03/20 07/03/20 07/03/20 10:18 10:18 10:18 Hct 38.4 L Lymphocytes # 0.2 L APTT 19.5 L BUN 23 H Creatinine 1.52 H Glucose 202 H POC Glucose (mg/dL) Lactate Dehydrogenase 704 H C-Reactive Protein 178.7 H Procalcitonin 07/03/20 07/03/20 07/03/20 10:18 16:39 21:10 Hct Lymphocytes # APTT BUN Creatinine Glucose POC Glucose (mg/dL) 284 H 323 H Lactate Dehydrogenase C-Reactive Protein Procalcitonin 0.25 H 07/04/20 07/04/20 06:59 11:26 Hct Lymphocytes # APTT BUN Creatinine Glucose POC Glucose (mg/dL) 258 H 252 H Lactate Dehydrogenase C-Reactive Protein Procalcitonin - Diagnostic Findings Chest x-ray: image reviewed Assessment and Plan Plan: 1 acute COVID19 related infection/pneumonia, inflammatory markers are mildly elevated with an LDH of 704, CRP of 178 and a pro-calcitonin level of 0.25. D- dimer is low at 0.4. 2 coagulase-negative staph in the blood, likely a contaminant rather than true infection.. Troponin is minimally elevated 0.25 3 previous history of mediastinal lymphadenopathy. Bronchoscopy was done in the past. Findings were positive for rhinovirus otherwise no other positive cultures were identified. 4. Shortness of breath secondary to above. Patient also has a component of COPD exacerbation, bronchospasm wheezing improved considerably with a combination of antibiotics bronchodilators and steroids. The patient remains on oral Decadron 5. Hypertention, hyperlipidemia 6. Diabetes mellitus with peripheral neuropathy 7 Chronic renal failure, stage III kidney disease 8 Coronary artery disease with previous coronary intervention and stenting 9 Prostate cancer with previous radiation therapy/brachii therapy/radiation seeds 10. Previous history of CVA 11 Degenerative disc disease or graft 12. Obesity with a BMI of 35.6 kg/m 13 seizure disorder Plan Continue Decadron 6 mg by mouth daily Initiated Remdesivir per protocol Monitor inflammatory markers Monitor blood cultures Monitor fever pattern Monitor oxygenation and gradually wean down the FiO2 as tolerated Continue using the rest of the vitamin supplements including vitamin C and vitamin D All medications have been resumed including Effient and aspirin.
[2020-07-04] MEDS: PRIMIDONE 250 MG TAB PO SCH ×2 (15:45→21:06)
[2020-07-04] MEDS ORDERED: Magnesium Replacement Protocol 1 EACH MISC MISCELLANE PRN (16:36)
[2020-07-04 16:38] LABS: Glucose,Whole Blood 396 mg/dL (75-99)
--- NOTE | 2020-07-04 16:44 | P.PN ---
Subjective Progress Note Date: 07/04/20 This is 69-year-old gentleman from [facility] rehab admitted with acute hypoxic respiratory failure secondary to both acute covid-19 pneumonia and acute COPD exacerbation, and multiple other medical issues. Maintained on Remdesivir, Decadron, zinc, vitamin C, vitamin D. Calcitonin level of 0.25. Hyperglycemic, blood sugars in the 200s. No new labs today. Preliminary blood cultures reporting coagulase-negative staph. Denies nausea vomiting or diarrhea. No abdominal pain. Denies chest pain, palpitations. Afebrile, maintaining O2 sats in the 90s on 2 L nasal cannula. Reports dry cough. Objective - Vital Signs Vital signs: Vital Signs Temp 98.7 F 07/04/20 14:00 Pulse 88 07/04/20 14:00 Resp 19 07/04/20 14:00 BP 154/82 07/04/20 14:00 Pulse Ox 94 L 07/04/20 14:00 Intake & Output 07/03/20 07/04/20 07/04/20 18:59 06:59 18:59 Output Total 600 Balance -600 Weight 124.738 kg Output: Urine 600 Other: Voiding Method External Catheter External Catheter # Voids 200 # Bowel Movements 1 - Exam PHYSICAL EXAMINATION: GENERAL: The patient is sitting up in chair, alert and oriented x3, not in any acute distress. HEENT: Pupils are round and equally reacting to light. EOMI. No scleral icterus. No conjunctival pallor. Normocephalic, atraumatic. No pharyngeal erythema. No thyromegaly. CARDIOVASCULAR: S1 and S2 present. No murmurs, rubs, or gallops. PULMONARY: Bilateral bases diminished, congested with scattered rhonchi with occasional fine bibasilar crackles ABDOMEN: Soft, nontender, nondistended, normoactive bowel sounds. No palpable organomegaly. MUSCULOSKELETAL: No joint swelling or deformity. EXTREMITIES: No cyanosis, clubbing, or pedal edema. NEUROLOGICAL: Gross neurological examination did not reveal any focal deficits. SKIN: Warm and dry, No rashes. - Labs CBC & Chem 7: 07/03/20 10:18 07/03/20 10:18 Labs: Abnormal Lab Results - Last 24 Hours (Table) 07/03/20 07/03/20 07/03/20 Range/Units 10:18 16:39 21:10 POC Glucose (mg/dL) 284 H 323 H (75-99) mg/dL Procalcitonin 0.25 H (0.02-0.09) ng/mL 07/04/20 07/04/20 Range/Units 06:59 11:26 POC Glucose (mg/dL) 258 H 252 H (75-99) mg/dL Procalcitonin (0.02-0.09) ng/mL Microbiology - Last 24 Hours (Table) 07/03/20 10:18 Blood Culture Gram Stain - Preliminary Blood Blood Culture - Preliminary Coagulase Negative Staph 07/03/20 10:18 Blood Culture - Final Blood Assessment and Plan Assessment: -Acute Covid 19 pneumonia -Acute COPD exacerbation -Acute hypoxic respiratory failure secondary to the above -Positive blood cultures with coagulase-negative staph, suspect contamination -Mild elevated troponin -Chronic kidney disease stage 3 -Hypertension -Type 2 diabetes mellitus -Diabetic peripheral neuropathy secondary to the above -Coronary artery disease with history of stenting -Prostate cancer status post radiation therapy, radiation seeds -History of CVA -Generalized medical debility -Vascular dementia. -Seizure disorder -Hyperlipidemia -History of mediastinal lymphadenopathy -Degenerative disc disease -Morbid Obesity, BMI 39.5 Plan: Continue on current medication regime ,monitoring and symptomatic treatment. Maintain Covid regimine including Remdesivir. Close monitoring of Accu-Cheks, Levemir dose increased .PT/OT. Increase ambulation. Close monitoring of renal function, electrolytes with Labs ordered for a.m. The impression and plan of care has been dictated as directed. : I performed a history and examination of this patient, discussed the same with the dictator. I agree with the dictator's note ,documented as a scribe. Any additional findings or plans will be noted.
[2020-07-04] MEDS ORDERED: CHOLECALCIFEROL 1,000 UNIT TAB PO SCH (17:00)
[2020-07-04] MEDS: ASCORBIC ACID 500 MG TAB PO SCH (17:16)
[2020-07-04] MEDS: MULTIVITAMINS, THERA 1 EACH TAB PO SCH (17:17)
[2020-07-04] MEDS: FOLIC ACID 1 MG TAB PO SCH (17:17)
[2020-07-04] MEDS: THIAMINE 100 MG TAB PO SCH (17:17)
[2020-07-04] MEDS: ZINC SULFATE 220 MG CAP PO SCH (17:17)
[2020-07-04] MEDS: ASPIRIN 81 MG PO SCH (17:17)
[2020-07-04] MEDS: MAGNESIUM OXIDE 400 MG TAB PO SCH (17:22)
[2020-07-04] MEDS: guaiFENesin SYRUP 100MG/5ML 200 MG/10 ML CUP PO PRN ×2 (17:25→21:09)
[2020-07-04] MEDS: ACETAMINOPHEN TAB 325 MG TAB PO PRN (17:25)
[2020-07-04 20:46] LABS: Glucose,Whole Blood 289 mg/dL (75-99)
[2020-07-04] MEDS ORDERED: INSULIN DETEMIR (LEVEMIR) 100 UNIT/ML SYR SQ SCH ×2 (21:00)
[2020-07-04] MEDS: DONEPEZIL 10 MG TAB PO SCH (21:02)
[2020-07-04] MEDS: FENOFIBRATE 160 MG TAB PO SCH (21:02)
[2020-07-04] MEDS: ISOSORBIDE MONONITRATE ER 30 MG TAB.ER.24H PO SCH (21:03)
[2020-07-04] MEDS: ESCITALOPRAM 10 MG TAB PO SCH (21:03)
[2020-07-04] MEDS: ATORVASTATIN 80 MG TAB PO SCH (21:03)
[2020-07-04] MEDS: INSULIN DETEMIR (LEVEMIR) 100 UNIT/ML SYR SQ SCH (21:04)
[2020-07-04] MEDS ORDERED: ONDANSETRON 4 MG/2 ML VIAL IVP PRN (23:51)
[2020-07-05] MEDS: ALBUTEROL HFA INHALER INHALATION SCH ×4 (02:40→19:56)
[2020-07-05] MEDS: guaiFENesin SYRUP 100MG/5ML 200 MG/10 ML CUP PO PRN ×2 (02:44→21:20)
[2020-07-05] MEDS: ACETAMINOPHEN TAB 325 MG TAB PO PRN (02:52)
[2020-07-05] MEDS: SODIUM CHLORIDE 0.9% 1,000 ML IV SCH ×2 (04:07→18:05)
[2020-07-05] MEDS: PANTOPRAZOLE 40 MG TABLET PO SCH (06:06)
[2020-07-05 07:07] LABS: Glucose,Whole Blood 110 mg/dL (75-99)
[2020-07-05] MEDS: INSULIN ASPART (NovoLOG) 100 UNIT/ML VIAL SQ SCH ×4 (07:20→20:59)
[2020-07-05] MEDS: dexAMETHasone 2 MG TAB PO SCH (07:42)
[2020-07-05] MEDS: HEPARIN SODIUM,PORCINE 5,000 UNIT/ML 1 ML VIAL SQ SCH ×2 (07:42→16:46)
[2020-07-05] MEDS: amLODIPine 5 MG TAB PO SCH (07:43)
[2020-07-05] MEDS: MEMANTINE 10 MG TAB PO SCH ×2 (07:43→18:05)
[2020-07-05] MEDS: METOPROLOL TARTRATE 25 MG TAB PO SCH ×2 (07:43→18:05)
[2020-07-05] MEDS: GABAPENTIN 100 MG CAP PO SCH ×2 (07:44→21:01)
[2020-07-05] MEDS: OXcarbazepine 300 MG TAB PO SCH ×2 (07:44→18:05)
[2020-07-05] MEDS: PRASUGREL 10 MG TAB PO SCH (07:44)
[2020-07-05] MEDS: NYSTATIN 100,000UNIT/GM CREAM 30 GM TUBE TOPICAL SCH ×3 (07:45→21:01)
--- NOTE | 2020-07-05 11:41 | P.PN ---
Subjective Progress Note Date: 07/05/20 69-year-old male patient is very well-known to me. He is a [facility] reside nt. I took care of him for pneumonia and mediastinal lymphadenopathy and he ultimately improved many years back. He is currently at [facility]. He was brought in for hypoxemia. He is usually on room air oxygen and he required 4 L and he was weaned down to 2 L. His coronavirus was positive on 06/27/2020 at the [facility]. He was running low-grade fever. His pro-calcitonin level is 0.5 and his blood cultures positive for coagulase-negative staph. LDH is 704, CRP is at 178 and the creatinine is at 1.52. He is currently on Decadron. No nausea. No vomiting. No abdominal pain. No altered mentation. No chest pain. Based on those symptoms, the patient came into the hospital and he was admitted for further treatment. Note that he is currently comfortable sitting up on a chair. No altered mentation. 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 Today's evaluation of 07/05/2020, the patient is feeling better. He is less short of breath compared to yesterday. He was weaned down the FiO2 and the patient is currently on room air oxygen with a pulse is 93%. He was given Remdesivir first dose yesterday he tolerated it well without any side effects. He is currently afebrile. He is hemodynamically stable. No other significant events otherwise over the past 24 hours. Despite some limited improvement in his shortness of breath, he is having increased cough. He was In a padded throughout the night. He was taken off and he was placed on room air oxygen. I think he felt better with him being on oxygen. Nevertheless, despite that, his pulse ox remained above 90%. Objective - Vital Signs Vital signs: Vital Signs Temp 98.6 F 07/05/20 10:48 Pulse 87 07/05/20 10:48 Resp 20 07/05/20 10:48 BP 80/46 07/05/20 10:48 Pulse Ox 93 L 07/05/20 10:48 Intake & Output 07/04/20 07/05/20 07/05/20 18:59 06:59 18:59 Output Total 600 Balance -600 Output: Urine 600 Other: Voiding Method External Catheter # Bowel Movements 1 - Exam Gen. appearance the patient is awake, comfortable not in distress sitting up on a chair. He is currently on RA Head exam was generally normal. There was no scleral icterus or corneal arcus. Mucous membranes were moist. Neck was supple and without jugular venous distension, thyromegaly, or carotid bruits. Carotids were easily palpable bilaterally. There was no adenopathy. Lungs sounds are diminished otherwise clear. Few crackles in lung bases. Cardiac exam revealed the PMI to be normally situated and sized. The rhythm was regular and no extrasystoles were noted during several minutes of auscultation. The first and second heart sounds were normal and physiologic splitting of the second heart sound was noted. There were no murmurs, rubs, clicks, or gallops. Abdominal exam revealed normal bowel sounds. The abdomen was soft, non-tender, and without masses, organomegaly, or appreciable enlargement of the abdominal aorta. Examination of the extremities revealed easily palpable radial, femoral and pedal pulses. There was no cyanosis, clubbing or edema. Examination of the skin revealed no evidence of significant rashes, suspicious appearing nevi or other concerning lesions. - Labs CBC & Chem 7: 07/03/20 10:18 07/03/20 10:18 Labs: Abnormal Lab Results - Last 24 Hours (Table) 07/04/20 07/04/20 07/05/20 Range/Units 16:37 20:45 07:03 POC Glucose (mg/dL) 396 H 289 H 110 H (75-99) mg/dL Microbiology - Last 24 Hours (Table) 07/03/20 10:18 Blood Culture Gram Stain - Preliminary Blood Blood Culture - Preliminary Coagulase Negative Staph Assessment and Plan Plan: 1 acute COVID19 related infection/pneumonia, inflammatory markers are mildly elevated with an LDH of 704, CRP of 178 and a pro-calcitonin level of 0.25. D- dimer is low at 0.4. 2 coagulase-negative staph in the blood, likely a contaminant rather than true infection.. Troponin is minimally elevated 0.25 3 previous history of mediastinal lymphadenopathy. Bronchoscopy was done in the past. Findings were positive for rhinovirus otherwise no other positive cultures were identified. 4. Shortness of breath secondary to above. Patient also has a component of COPD exacerbation, bronchospasm wheezing improved considerably with a combination of antibiotics bronchodilators and steroids. The patient remains on oral Decadron 5. Hypertention, hyperlipidemia 6. Diabetes mellitus with peripheral neuropathy 7 Chronic renal failure, stage III kidney disease 8 Coronary artery disease with previous coronary intervention and stenting 9 Prostate cancer with previous radiation therapy/brachii therapy/radiation seeds 10. Previous history of CVA 11 Degenerative disc disease or graft 12. Obesity with a BMI of 35.6 kg/m 13 seizure disorder Plan Continue Decadron 6 mg by mouth daily Initiated Remdesivir per protocol and the patient received a forced those yeste rday Monitor inflammatory markers Monitor blood cultures Monitor fever pattern Monitor oxygenation and gradually wean down the FiO2 as tolerated and patient is currently on room air oxygen Continue using the rest of the vitamin supplements including vitamin C and vitamin D All medications have been resumed including Effient and aspirin. Repeat electrolytes and monitor the renal function tomorrow
[2020-07-05 11:57] LABS: Glucose,Whole Blood 178 mg/dL (75-99)
--- NOTE | 2020-07-05 13:50 | P.PN ---
Subjective Progress Note Date: 07/05/20 This is 69-year-old gentleman from [facility] rehab admitted with acute hypoxic respiratory failure secondary to both acute covid-19 pneumonia and acute COPD exacerbation, and multiple other medical issues. Maintained on Remdesivir, Decadron, zinc, vitamin C, vitamin D. Calcitonin level of 0.25. Hyperglycemic, blood sugars in the 200s. No new labs today. Preliminary blood cultures reporting coagulase-negative staph. Denies nausea vomiting or diarrhea. No abdominal pain. Denies chest pain, palpitations. Afebrile, maintaining O2 sats in the 90s on 2 L nasal cannula. Reports dry cough. 07/05/2020 Continues on Remdesivir, Decadron, zinc, vitamin C, vitamin D. 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 Currently complains of congested, nonproductive cough. Maintaining O2 sats in the 90s on 2 L nasal cannula. Afebrile, T-max 99.1. Levemir insulin dose increased yesterday, blood sugars improved this morning. Objective - Vital Signs Vital signs: Vital Signs Temp 98.6 F 07/05/20 10:48 Pulse 87 07/05/20 10:48 Resp 20 07/05/20 10:48 BP 80/46 07/05/20 10:48 Pulse Ox 93 L 07/05/20 10:48 Intake & Output 07/04/20 07/05/20 07/05/20 18:59 06:59 18:59 Output Total 600 Balance -600 Output: Urine 600 Other: Voiding Method External Catheter # Bowel Movements 1 - Exam PHYSICAL EXAMINATION: GENERAL:sitting up in chair, alert and oriented x3, not in any acute distress. HEENT: Pupils are round and equally reacting to light. EOMI. No scleral icterus. No conjunctival pallor. Normocephalic, atraumatic. No pharyngeal erythema. No thyromegaly. CARDIOVASCULAR: S1 and S2 present. No murmurs, rubs, or gallops. PULMONARY: Bilateral bases diminished, congested with occasional fine bibasilar crackles ABDOMEN: Soft, nontender, nondistended, normoactive bowel sounds. No palpable organomegaly. EXTREMITIES: No cyanosis, clubbing, or pedal edema. NEUROLOGICAL: Gross neurological examination did not reveal any focal deficits. SKIN: Warm and dry, No rashes. - Labs CBC & Chem 7: 07/03/20 10:18 07/03/20 10:18 Labs: Abnormal Lab Results - Last 24 Hours (Table) 07/04/20 07/04/20 07/05/20 Range/Units 16:37 20:45 07:03 POC Glucose (mg/dL) 396 H 289 H 110 H (75-99) mg/dL 07/05/20 Range/Units 11:53 POC Glucose (mg/dL) 178 H (75-99) mg/dL Microbiology - Last 24 Hours (Table) 07/03/20 10:18 Blood Culture Gram Stain - Preliminary Blood Blood Culture - Preliminary Coagulase Negative Staph Assessment and Plan Assessment: -Acute Covid 19 pneumonia -Acute COPD exacerbation -Acute hypoxic respiratory failure secondary to the above -Positive blood cultures with coagulase-negative staph, suspect contamination -Mild elevated troponin -Chronic kidney disease stage 3 -Hypertension -Type 2 diabetes mellitus -Diabetic peripheral neuropathy secondary to the above -Coronary artery disease with history of stenting -Prostate cancer status post radiation therapy, radiation seeds -History of CVA -Generalized medical debility -Vascular dementia. -Seizure disorder -Hyperlipidemia -History of mediastinal lymphadenopathy -Degenerative disc disease -Morbid Obesity, BMI 39.5 -Hypomagnesemia Plan: Continue on current medication regime ,monitoring and symptomatic treatment. Continue Covid regimine including Remdesivir. Increase ambulation. Maintain close monitoring of Accu-Cheks. Close monitoring of renal function, electrolytes, labs ordered for a.m. The impression and plan of care has been dictated as directed. : I performed a history and examination of this patient, discussed the same with the dictator. I agree with the dictator's note ,documented as a scribe. Any additional findings or plans will be noted.
[2020-07-05] MEDS: REMDESIVIR 100 MG in SODIUM CHLORIDE 0.9% 250 ML IVPB SCH (14:48)
[2020-07-05] MEDS: ASPIRIN 81 MG PO SCH (16:45)
[2020-07-05] MEDS: MAGNESIUM OXIDE 400 MG TAB PO SCH (16:45)
[2020-07-05] MEDS: ASCORBIC ACID 500 MG TAB PO SCH (16:46)
[2020-07-05] MEDS: THIAMINE 100 MG TAB PO SCH (16:46)
[2020-07-05] MEDS: FOLIC ACID 1 MG TAB PO SCH (16:47)
[2020-07-05] MEDS: PRIMIDONE 250 MG TAB PO SCH ×2 (16:47→21:01)
[2020-07-05] MEDS: MULTIVITAMINS, THERA 1 EACH TAB PO SCH (16:48)
[2020-07-05] MEDS: ZINC SULFATE 220 MG CAP PO SCH (16:51)
[2020-07-05 17:30] LABS: Glucose,Whole Blood 283 mg/dL (75-99)
[2020-07-05 20:43] LABS: Glucose,Whole Blood 237 mg/dL (75-99)
[2020-07-05] MEDS: INSULIN DETEMIR (LEVEMIR) 100 UNIT/ML SYR SQ SCH (20:59)
[2020-07-05] MEDS: ATORVASTATIN 80 MG TAB PO SCH (21:00)
[2020-07-05] MEDS: FENOFIBRATE 160 MG TAB PO SCH (21:00)
[2020-07-05] MEDS: DONEPEZIL 10 MG TAB PO SCH (21:00)
[2020-07-05] MEDS: ISOSORBIDE MONONITRATE ER 30 MG TAB.ER.24H PO SCH (21:00)
[2020-07-05] MEDS: ESCITALOPRAM 10 MG TAB PO SCH (21:01)
[2020-07-06] MEDS: NYSTATIN 100,000UNIT/GM CREAM 30 GM TUBE TOPICAL SCH ×4 (00:03→20:14)
[2020-07-06] MEDS: HEPARIN SODIUM,PORCINE 5,000 UNIT/ML 1 ML VIAL SQ SCH ×3 (00:04→17:55)
[2020-07-06] MEDS: ALBUTEROL HFA INHALER INHALATION SCH ×4 (01:15→20:00)
[2020-07-06] MEDS: PANTOPRAZOLE 40 MG TABLET PO SCH (05:46)
[2020-07-06] MEDS: SODIUM CHLORIDE 0.9% 1,000 ML IV SCH ×2 (06:03→21:18)
[2020-07-06 06:52] LABS: Glucose,Whole Blood 180 mg/dL (75-99)
[2020-07-06] MEDS: PRASUGREL 10 MG TAB PO SCH (08:11)
[2020-07-06] MEDS: dexAMETHasone 2 MG TAB PO SCH (08:11)
[2020-07-06] MEDS: INSULIN ASPART (NovoLOG) 100 UNIT/ML VIAL SQ SCH ×4 (08:11→21:14)
[2020-07-06] MEDS: MEMANTINE 10 MG TAB PO SCH ×2 (08:13→17:53)
[2020-07-06] MEDS: GABAPENTIN 100 MG CAP PO SCH ×2 (08:13→20:13)
[2020-07-06] MEDS: amLODIPine 5 MG TAB PO SCH (08:13)
[2020-07-06] MEDS: OXcarbazepine 300 MG TAB PO SCH ×2 (08:13→17:54)
[2020-07-06] MEDS: METOPROLOL TARTRATE 25 MG TAB PO SCH ×2 (08:13→17:53)
--- NOTE | 2020-07-06 10:03 | XR ---
EXAMINATION TYPE: XR chest 1V portable DATE OF EXAM: 07/06/2020 COMPARISON: 07/03/2020 INDICATION: Covid TECHNIQUE: Single frontal view of the chest is obtained. FINDINGS: The heart size is normal. The pulmonary vasculature is normal. Minimal subsegmental infiltrate is present within the left lower lobe. This is similar to prior exam IMPRESSION: 1. Mild left lower lobe infiltrate can be compatible with atypical pneumonia.
[2020-07-06 11:35] LABS: African American GFR (CKD) 50.2 (60.0-200.0); Albumin/Globulin Ratio 2.35 (1.60-3.17); Anion Gap 9.6 mmol/L (4.00-12.00); BUN/Creat Ratio 19.38 Ratio (12.00-20.00); C Reactive Protein 10.3 mg/dL (0.0-0.8); Calcium 9.3 mg/dL (8.7-10.3); Carbon Dioxide 28.4 mmol/L (21.6-31.8); Globulin 1.7 g/dL (1.6-3.3); Non-African American GFR(CKD) 43.3 (60.0-200.0); Potassium 4.3 mmol/L (3.5-5.5); Total Bilirubin 0.3 mg/dL (0.3-1.2); Total Protein 5.7 g/dL (6.2-8.2)
[2020-07-06 11:37] LABS: Glucose,Whole Blood 249 mg/dL (75-99)
--- NOTE | 2020-07-06 11:59 | P.PN ---
Subjective Progress Note Date: 07/06/20 69-year-old male patient is very well-known to me. 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 I took care of him for pneumonia and mediastinal lymphadenopathy and he ultimately improved many years back. He is currently at [facility]. He was brought in for hypoxemia. He is usually on room air oxygen and he required 4 L and he was weaned down to 2 L. His coronavirus was positive on 06/27/2020 at the custodial. He was running low-grade fever. His pro-calcitonin level is 0.5 and his blood cultures positive for coagulase-negative staph. LDH is 704, CRP is at 178 and the creatinine is at 1.52. He is currently on Decadron. No nausea. No vomiting. No abdominal pain. No altered mentation. No chest pain. Based on those symptoms, the patient came into the hospital and he was admitted for further treatment. Note that he is currently comfortable sitting up on a chair. No altered mentation. 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 Today's evaluation of 07/05/2020, the patient is feeling better. He is less short of breath compared to yesterday. He was weaned down the FiO2 and the patient is currently on room air oxygen with a pulse is 93%. He was given Remdesivir first dose yesterday he tolerated it well without any side effects. He is currently afebrile. He is hemodynamically stable. No other significant events otherwise over the past 24 hours. Despite some limited improvement in his shortness of breath, he is having increased cough. He was In a padded throughout the night. He was taken off and he was placed on room air oxygen. I think he felt better with him being on oxygen. Nevertheless, despite that, his pulse ox remained above 90%. 07/06/2020, the patient is doing very well. He is laying down comfortably in bed on 2 L of oxygen by nasal cannula. He remains on Decadron. He has been also on Remdesivir and I think he is on his third day of treatment. No chest pain. No shortness of breath. The blood culture came back positive for staph epidermidis. The patient's CRP has dropped considerably compared to baseline.He has chronic kidney failure and the creatinine is at 1.6. D-dimer is at 0.37. Rest of the blood work and electrolytes are all within normal limits. Repeat c hest x-ray showed normal heart, normal pulmonary vasculature, minimal subsegmental infiltrate in the left lower lobe. Objective - Vital Signs Vital signs: Vital Signs Temp 97.6 F 07/06/20 09:27 Pulse 72 07/06/20 09:27 Resp 18 07/06/20 09:27 BP 145/81 07/06/20 09:27 Pulse Ox 94 L 07/06/20 09:27 Intake & Output 07/05/20 07/06/20 07/06/20 18:59 06:59 18:59 Intake Total 200 Balance 200 Intake: Oral 200 Other: Voiding Method External Catheter # Voids 3 3 # Bowel Movements 1 - Exam Gen. appearance the patient is awake, comfortable not in distress sitting up on a chair. He is currently on RA Head exam was generally normal. There was no scleral icterus or corneal arcus. Mucous membranes were moist. Neck was supple and without jugular venous distension, thyromegaly, or carotid bruits. Carotids were easily palpable bilaterally. There was no adenopathy. Lungs sounds are diminished otherwise clear. Few crackles in lung bases. Cardiac exam revealed the PMI to be normally situated and sized. The rhythm was regular and no extrasystoles were noted during several minutes of auscultation. The first and second heart sounds were normal and physiologic splitting of the second heart sound was noted. There were no murmurs, rubs, clicks, or gallops. Abdominal exam revealed normal bowel sounds. The abdomen was soft, non-tender, and without masses, organomegaly, or appreciable enlargement of the abdominal aorta. Examination of the extremities revealed easily palpable radial, femoral and pedal pulses. There was no cyanosis, clubbing or edema. Examination of the skin revealed no evidence of significant rashes, suspicious appearing nevi or other concerning lesions. - Labs CBC & Chem 7: 07/03/20 10:18 07/06/20 05:56 Labs: Abnormal Lab Results - Last 24 Hours (Table) 07/05/20 07/05/20 07/05/20 Range/Units 11:53 17:22 20:39 BUN (9.0-27.0) mg/dL Creatinine (0.6-1.5) mg/dL Est GFR (CKD-EPI)AfAm (60.0-200.0) Est GFR (CKD-EPI)NonAf (60.0-200.0) Glucose (70-110) mg/dL POC Glucose (mg/dL) 178 H 283 H 237 H (75-99) mg/dL C-Reactive Protein (0.0-0.8) mg/dL Total Protein (6.2-8.2) g/dL 07/06/20 07/06/20 07/06/20 Range/Units 05:56 06:50 11:35 BUN 31.0 H (9.0-27.0) mg/dL Creatinine 1.6 H (0.6-1.5) mg/dL Est GFR (CKD-EPI)AfAm 50.2 L (60.0-200.0) Est GFR (CKD-EPI)NonAf 43.3 L (60.0-200.0) Glucose 180 H (70-110) mg/dL POC Glucose (mg/dL) 180 H 249 H (75-99) mg/dL C-Reactive Protein 10.3 H (0.0-0.8) mg/dL Total Protein 5.7 L (6.2-8.2) g/dL Microbiology - Last 24 Hours (Table) 07/03/20 10:18 Blood Culture Gram Stain - Final Blood Blood Culture - Final Staphylococcus epidermidis Assessment and Plan Plan: 1 acute COVID19 related infection/pneumonia, inflammatory markers are mildly elevated and based on today's CRP, the levels of dropped significantly while being on treatment with anti-inflammatory and antiviral agents. 2 coagulase-negative staph in the blood, likely a contaminant rather than true infection.. The patient's blood culture came back positive for staph epidermidis, likely contaminant 3 previous history of mediastinal lymphadenopathy. Bronchoscopy was done in the past. Findings were positive for rhinovirus otherwise no other positive cultures were identified. 4. Shortness of breath secondary to above. Patient also has a component of COPD exacerbation, bronchospasm wheezing improved considerably with a combination of antibiotics bronchodilators and steroids. The patient remains on oral Decadron and Remdesivir 5. Hypertention, hyperlipidemia 6. Diabetes mellitus with peripheral neuropathy 7 Chronic renal failure, stage III kidney disease 8 Coronary artery disease with previous coronary intervention and stenting 9 Prostate cancer with previous radiation therapy/brachii therapy/radiation seeds 10. Previous history of CVA 11 Degenerative disc disease or graft 12. 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 Repeat electrolytes and monitor the renal function tomorrow, creatinine stable at 1.6
[2020-07-06] MEDS: PRIMIDONE 250 MG TAB PO SCH ×2 (12:28→20:14)
[2020-07-06] MEDS: REMDESIVIR 100 MG in SODIUM CHLORIDE 0.9% 250 ML IVPB SCH (12:29)
--- NOTE | 2020-07-06 14:51 | P.PN ---
Subjective Progress Note Date: 07/06/20 This is 69-year-old gentleman from [facility] rehab admitted with acute hypoxic respiratory failure secondary to both acute covid-19 pneumonia and acute COPD exacerbation, and multiple other medical issues. Maintained on Remdesivir, Decadron, zinc, vitamin C, vitamin D. Calcitonin level of 0.25. Hyperglycemic, blood sugars in the 200s. No new labs today. Preliminary blood cultures reporting coagulase-negative staph. Denies nausea vomiting or diarrhea. No abdominal pain. Denies chest pain, palpitations. Afebrile, maintaining O2 sats in the 90s on 2 L nasal cannula. Reports dry cough. 07/05/2020 Continues on Remdesivir, Decadron, zinc, vitamin C, vitamin D. 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 Currently complains of congested, nonproductive cough. Maintaining O2 sats in the 90s on 2 L nasal cannula. Afebrile, T-max 99.1. Levemir insulin dose increased yesterday, blood sugars improved this morning. 07/06/2020 maintained on Covid regimen including Remdesevir, day 3. Afebrile, T-max 99. Final Blood culture reporting Staphylococcus epidermidis.Labs pending. Maintaining O2 sats in the 90s on room air. Chest x-ray recently completed, results pending. Blood sugars better controlled this morning. Ambulating to and from bathroom with walker, tolerating exertion well. Objective - Vital Signs Vital signs: Vital Signs Temp 98.1 F 07/06/20 05:35 Pulse 76 07/06/20 05:35 Resp 16 07/06/20 05:35 BP 139/74 07/06/20 05:35 Pulse Ox 95 07/06/20 05:35 Intake & Output 07/05/20 07/06/20 07/06/20 18:59 06:59 18:59 Intake Total 200 Balance 200 Intake: Oral 200 Other: Voiding Method External Catheter # Voids 3 3 # Bowel Movements 1 - Exam PHYSICAL EXAMINATION: GENERAL:sitting up in chair, alert and oriented x3, not in any acute distress. HEENT: Pupils are round and equally reacting to light. EOMI. No conjunctival pallor. Normocephalic, atraumatic. CARDIOVASCULAR: S1 and S2 present. No murmurs, rubs, or gallops. PULMONARY: Bilateral bases diminished, congested with occasional fine bibasilar crackles. ABDOMEN: Soft, nontender, nondistended, normoactive bowel sounds. No palpable organomegaly. EXTREMITIES: No cyanosis, clubbing, or pedal edema. NEUROLOGICAL: Gross neurological examination did not reveal any focal deficits. SKIN: Warm and dry, No rashes. - Labs CBC & Chem 7: 07/03/20 10:18 07/06/20 05:56 Labs: Abnormal Lab Results - Last 24 Hours (Table) 07/05/20 07/05/20 07/05/20 Range/Units 11:53 17:22 20:39 POC Glucose (mg/dL) 178 H 283 H 237 H (75-99) mg/dL 07/06/20 Range/Units 06:50 POC Glucose (mg/dL) 180 H (75-99) mg/dL Microbiology - Last 24 Hours (Table) 07/03/20 10:18 Blood Culture Gram Stain - Final Blood Blood Culture - Final Staphylococcus epidermidis Assessment and Plan Assessment: -Acute Covid 19 pneumonia -Acute COPD exacerbation -Acute hypoxic respiratory failure secondary to the above -Positive blood cultures with Staphylococcus epidermidis, suspect contamination -Mild elevated troponin -Chronic kidney disease stage 3 -Hypertension -Type 2 diabetes mellitus -Diabetic peripheral neuropathy secondary to the above -Coronary artery disease with history of stenting -Prostate cancer status post radiation therapy, radiation seeds -History of CVA -Generalized medical debility -Vascular dementia. -Seizure disorder -Hyperlipidemia -History of mediastinal lymphadenopathy -Degenerative disc disease -Morbid Obesity, BMI 39.5 -Hypomagnesemia Plan: Continue on current medication regime ,monitoring and symptomatic treatmen t. Labs pending. Covid regimine including Remdesivir. PT/OT .Continue increasing ambulation as tolerated. Possibly discharge tomorrow back to [facility] subacute rehab after completing fourth bag of Remdesevir, pending final DC recommendations and clearance from pulmonary. The impression and plan of care has been dictated as directed. : I performed a history and examination of this patient, discussed the same with the dictator. I agree with the dictator's note ,documented as a scribe. Any additional findings or plans will be noted.
[2020-07-06 17:01] LABS: Glucose,Whole Blood 314 mg/dL (75-99)
[2020-07-06] MEDS: FOLIC ACID 1 MG TAB PO SCH (17:53)
[2020-07-06] MEDS: CHOLECALCIFEROL 25 MCG (1000 IU) TABLET PO SCH (17:54)
[2020-07-06] MEDS: MAGNESIUM OXIDE 400 MG TAB PO SCH (17:54)
[2020-07-06] MEDS: ASPIRIN 81 MG PO SCH (17:54)
[2020-07-06] MEDS: ASCORBIC ACID 500 MG TAB PO SCH (17:54)
[2020-07-06] MEDS: ZINC SULFATE 220 MG CAP PO SCH (17:58)
[2020-07-06] MEDS: THIAMINE 100 MG TAB PO SCH (17:58)
[2020-07-06] MEDS: MULTIVITAMINS, THERA 1 EACH TAB PO SCH (17:58)
[2020-07-06] MEDS: INSULIN DETEMIR (LEVEMIR) 100 UNIT/ML SYR SQ SCH (20:13)
[2020-07-06] MEDS: ATORVASTATIN 80 MG TAB PO SCH (20:14)
[2020-07-06] MEDS: DONEPEZIL 10 MG TAB PO SCH (20:14)
[2020-07-06] MEDS: ISOSORBIDE MONONITRATE ER 30 MG TAB.ER.24H PO SCH (20:14)
[2020-07-06] MEDS: FENOFIBRATE 160 MG TAB PO SCH (20:14)
[2020-07-06 20:57] LABS: Glucose,Whole Blood 291 mg/dL (75-99)
[2020-07-06] MEDS: guaiFENesin SYRUP 100MG/5ML 200 MG/10 ML CUP PO PRN (21:17)
[2020-07-06] MEDS: ESCITALOPRAM 10 MG TAB PO SCH (21:17)
[2020-07-07] MEDS: HEPARIN SODIUM,PORCINE 5,000 UNIT/ML 1 ML VIAL SQ SCH ×3 (00:22→16:26)
[2020-07-07] MEDS: NYSTATIN 100,000UNIT/GM CREAM 30 GM TUBE TOPICAL SCH ×4 (00:23→21:37)
[2020-07-07] MEDS: ALBUTEROL HFA INHALER INHALATION SCH ×5 (01:49→19:45)
[2020-07-07] MEDS: PANTOPRAZOLE 40 MG TABLET PO SCH (05:10)
[2020-07-07 06:59] LABS: Glucose,Whole Blood 174 mg/dL (75-99)
[2020-07-07] MEDS: INSULIN ASPART (NovoLOG) 100 UNIT/ML VIAL SQ SCH ×4 (07:22→21:29)
[2020-07-07] MEDS: GABAPENTIN 100 MG CAP PO SCH ×2 (07:22→21:27)
[2020-07-07] MEDS: MEMANTINE 10 MG TAB PO SCH ×2 (07:23→16:26)
[2020-07-07] MEDS: PRASUGREL 10 MG TAB PO SCH (07:23)
[2020-07-07] MEDS: METOPROLOL TARTRATE 25 MG TAB PO SCH ×2 (07:24→16:26)
[2020-07-07] MEDS: dexAMETHasone 2 MG TAB PO SCH (07:24)
[2020-07-07] MEDS: amLODIPine 5 MG TAB PO SCH (07:24)
[2020-07-07] MEDS: OXcarbazepine 300 MG TAB PO SCH ×2 (07:26→16:27)
--- NOTE | 2020-07-07 09:08 | P.PN ---
Subjective Progress Note Date: 07/07/20 This is 69-year-old gentleman from [facility] rehab admitted with acute hypoxic respiratory failure secondary to both acute covid-19 pneumonia and acute COPD exacerbation, and multiple other medical issues. Maintained on Remdesivir, Decadron, zinc, vitamin C, vitamin D. Calcitonin level of 0.25. Hyperglycemic, blood sugars in the 200s. No new labs today. Preliminary blood cultures reporting coagulase-negative staph. Denies nausea vomiting or diarrhea. No abdominal pain. Denies chest pain, palpitations. Afebrile, maintaining O2 sats in the 90s on 2 L nasal cannula. Reports dry cough. 07/05/2020 Continues on Remdesivir, Decadron, zinc, vitamin C, vitamin D. 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 Currently complains of congested, nonproductive cough. Maintaining O2 sats in the 90s on 2 L nasal cannula. Afebrile, T-max 99.1. Levemir insulin dose increased yesterday, blood sugars improved this morning. 07/06/2020 maintained on Covid regimen including Remdesevir, day 3. Afebrile, T-max 99. Final Blood culture reporting Staphylococcus epidermidis.Labs pending. Maintaining O2 sats in the 90s on room air. Chest x-ray recently completed, results pending. Blood sugars better controlled this morning. Ambulating to and from bathroom with walker, tolerating exertion well. 07/07/20 Remdesevir's last dose tomorrow. Maintaining O2 sats in the mid to high 90s on 2 L nasal cannula. Afebrile, normal WBC. Recent creatinine 1.6. Denies chest pain, palpitations or shortness of breath. Tolerating diet with no nausea or vomiting or diarrhea. Positive bowel movement yesterday. Objective - Vital Signs Vital signs: Vital Signs Temp 98.1 F 07/07/20 05:30 Pulse 96 07/07/20 05:30 Resp 17 07/07/20 05:30 BP 128/71 07/07/20 05:30 Pulse Ox 96 07/07/20 05:30 Intake & Output 07/06/20 07/07/20 07/07/20 18:59 06:59 18:59 Intake Total 1075 Balance 1075 Intake: Intake, IV Titration 675 Amount Remdesivir 100 mg In 250 Sodium Chloride 0.9% 250 ml @ 250 mls/hr IVPB Q24H PA Rx#:[id number] Sodium Chloride 0.9% 1, 425 000 ml @ 75 mls/hr IV . [id number] PA Rx#:[id number] Oral 400 Other: Voiding Method Bedside Commode Bedside Commode # Voids 3 2 - Exam PHYSICAL EXAMINATION: GENERAL:sitting up in bed, alert and oriented x3, not in any acute distress. HEENT: Pupils are round and equally reacting to light. EOMI. No conjunctival pallor. Normocephalic, atraumatic. CARDIOVASCULAR: S1 and S2 present. No murmurs, rubs, or gallops. PULMONARY: Bilateral bases diminished, congested with slight bibasilar crackles. ABDOMEN: Soft, nontender, nondistended, normoactive bowel sounds. No palpable organomegaly. EXTREMITIES: No cyanosis, clubbing, or pedal edema. NEUROLOGICAL: Gross neurological examination did not reveal any focal deficits. SKIN: Warm and dry, No rashes. - Labs CBC & Chem 7: 07/03/20 10:18 07/06/20 05:56 Labs: Abnormal Lab Results - Last 24 Hours (Table) 07/06/20 07/06/20 07/06/20 Range/Units 05:56 11:35 16:58 BUN 31.0 H (9.0-27.0) mg/dL Creatinine 1.6 H (0.6-1.5) mg/dL Est GFR (CKD-EPI)AfAm 50.2 L (60.0-200.0) Est GFR (CKD-EPI)NonAf 43.3 L (60.0-200.0) Glucose 180 H (70-110) mg/dL POC Glucose (mg/dL) 249 H 314 H (75-99) mg/dL C-Reactive Protein 10.3 H (0.0-0.8) mg/dL Total Protein 5.7 L (6.2-8.2) g/dL 07/06/20 07/07/20 Range/Units 20:56 06:57 BUN (9.0-27.0) mg/dL Creatinine (0.6-1.5) mg/dL Est GFR (CKD-EPI)AfAm (60.0-200.0) Est GFR (CKD-EPI)NonAf (60.0-200.0) Glucose (70-110) mg/dL POC Glucose (mg/dL) 291 H 174 H (75-99) mg/dL C-Reactive Protein (0.0-0.8) mg/dL Total Protein (6.2-8.2) g/dL Assessment and Plan Assessment: -Acute Covid 19 pneumonia -Acute COPD exacerbation -Acute hypoxic respiratory failure secondary to the above -Positive blood cultures with Staphylococcus epidermidis, suspect contamination -Mild elevated troponin -Chronic kidney disease stage 3 -Hypertension -Type 2 diabetes mellitus -Diabetic peripheral neuropathy secondary to the above -Coronary artery disease with history of stenting -Prostate cancer status post radiation therapy, radiation seeds -History of CVA -Generalized medical debility -Vascular dementia. -Seizure disorder -Hyperlipidemia -History of mediastinal lymphadenopathy -Degenerative disc disease -Morbid Obesity, BMI 39.5 -Hypomagnesemia Plan: Continue on current medication regime ,monitoring and symptomatic treatment. Significant clinical improvement , completing final dose of Remdesivir tomorrow. Discharge planning in progress for tomorrow to [facility] subacute rehab pending final DC recommendations and clearance from pulmonary. The impression and plan of care has been dictated as directed. : I performed a history and examination of this patient, discussed the same with the dictator. I agree with the dictator's note ,documented as a scribe. Any additional findings or plans will be noted.
[2020-07-07] MEDS: SODIUM CHLORIDE 0.9% 1,000 ML IV SCH ×2 (11:38→23:59)
[2020-07-07 11:39] LABS: Glucose,Whole Blood 213 mg/dL (75-99)
[2020-07-07] MEDS: REMDESIVIR 100 MG in SODIUM CHLORIDE 0.9% 250 ML IVPB SCH (11:52)
--- NOTE | 2020-07-07 12:11 | P.PN ---
Subjective Progress Note Date: 07/07/20 69-year-old male patient is very well-known to me. He is a halfway resident. I took care of him for pneumonia and mediastinal lymphadenopathy and he ultimately improved many years back. He is currently at [facility]. He was brought in for hypoxemia. He is usually on room air oxygen and he required 4 L and he was weaned down to 2 L. His coronavirus was positive on 06/27/2020 at the halfway. He was running low-grade fever. His pro-calcitonin level is 0.5 and his blood cultures positive for coagulase-negative staph. LDH is 704, CRP is at 178 and the creatinine is at 1.52. He is currently on Decadron. No nausea. No vomiting. No abdominal pain. No altered mentation. No chest pain. Based on those symptoms, the patient came into the hospital and he was admitted for further treatment. Note that he is currently comfortable sitting up on a chair. No altered mentation. 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 Today's evaluation of 07/05/2020, the patient is feeling better. He is less short of breath compared to yesterday. He was weaned down the FiO2 and the patient is currently on room air oxygen with a pulse is 93%. He was given Remdesivir first dose yesterday he tolerated it well without any side effects. He is currently afebrile. He is hemodynamically stable. No other significant events otherwise over the past 24 hours. Despite some limited improvement in his shortness of breath, he is having increased cough. He was In a padded throughout the night. He was taken off and he was placed on room air oxygen. I think he felt better with him being on oxygen. Nevertheless, despite that, his pulse ox remained above 90%. 07/06/2020, the patient is doing very well. He is laying down comfortably in b ed on 2 L of oxygen by nasal cannula. He remains on Decadron. He has been also on Remdesivir and I think he is on his third day of treatment. No chest pain. No shortness of breath. The blood culture came back positive for staph epidermidis. The patient's CRP has dropped considerably compared to baseline.He has chronic kidney failure and the creatinine is at 1.6. D-dimer is at 0.37. Rest of the blood work and electrolytes are all within normal limits. Repeat chest x-ray showed normal heart, normal pulmonary vasculature, minimal subsegmental infiltrate in the left lower lobe. On 07/07/2020 patient seen in follow-up on medical floor, he is resting comfortably in bed, he is in no acute distress, etc. liters of oxygen his pulse ox is 90-96%, his been afebrile, still has shortness of breath with exertion, but no distress at rest. Denies chest pain, palpitations, nausea vomiting or d iarrhea, last d-dimer from yesterday was 0.37, and LDH were improving, with 10.3 and 161 respectively, renal profile was 1.6, BUN of 31, electrolytes were within normal limits Objective - Vital Signs Vital signs: Vital Signs Temp 97.9 F 07/07/20 09:30 Pulse 72 07/07/20 09:30 Resp 18 07/07/20 09:30 BP 147/74 07/07/20 09:30 Pulse Ox 90 L 07/07/20 09:30 Intake & Output 07/06/20 07/07/20 07/07/20 18:59 06:59 18:59 Intake Total 1075 Balance 1075 Intake: Intake, IV Titration 675 Amount Remdesivir 100 mg In 250 Sodium Chloride 0.9% 250 ml @ 250 mls/hr IVPB Q24H PA Rx#:[id number] Sodium Chloride 0.9% 1, 425 000 ml @ 75 mls/hr IV . [id number] PA Rx#:[id number] Oral 400 Other: Voiding Method Bedside Commode Bedside Commode # Voids 3 2 - Exam GENERAL EXAM: Alert, pleasant, 69-year-old white male oxygen pulse ox of 90-96% comfortable in no apparent distress. HEAD: Normocephalic/atraumatic. EYES: Normal reaction of pupils, equal size. Conjunctiva pink, sclera white. NOSE: Clear with pink turbinates. THROAT: No erythema or exudates. NECK: No masses, no JVD, no thyroid enlargement, no adenopathy. CHEST: No chest wall deformity. Symmetrical expansion. LUNGS: Equal air entry with no crackles, wheeze, rhonchi or dullness. CVS: Regular rate and rhythm, normal S1 and S2, no gallops, no murmurs, no rubs ABDOMEN: Soft, nontender. No hepatosplenomegaly, normal bowel sounds, no guarding or rigidity. EXTREMITIES: No clubbing, no edema, no cyanosis, 2+ pulses and upper and lower extremities. MUSCULOSKELETAL: Muscle strength and tone normal. SPINE: No scoliosis or deformity SKIN: No rashes CENTRAL NERVOUS SYSTEM: Alert and oriented -3. No focal deficits, tone is normal in all 4 extremities. PSYCHIATRIC: Alert and oriented -3. Appropriate affect. Intact judgment and insight. - Labs CBC & Chem 7: 07/03/20 10:18 07/06/20 05:56 Labs: Abnormal Lab Results - Last 24 Hours (Table) 07/06/20 07/06/20 07/07/20 Range/Units 16:58 20:56 06:57 POC Glucose (mg/dL) 314 H 291 H 174 H (75-99) mg/dL 07/07/20 Range/Units 11:38 POC Glucose (mg/dL) 213 H (75-99) mg/dL Assessment and Plan Plan: Assessment: 1 acute COVID19 related infection/pneumonia, inflammatory markers are mildly elevated and based on today's CRP, the levels of dropped significantly while being on treatment with anti-inflammatory and antiviral agents. 2 coagulase-negative staph in the blood, likely a contaminant rather than true infection.. The patient's blood culture came back positive for staph epidermidis, likely contaminant 3 previous history of mediastinal lymphadenopathy. Bronchoscopy was done in the past. Findings were positive for rhinovirus otherwise no other positive cultures were identified. 4. Shortness of breath secondary to above. Patient also has a component of COPD exacerbation, bronchospasm wheezing improved considerably with a combination of antibiotics bronchodilators and steroids. The patient remains on oral Decadron and Remdesivir 5. Hypertention, hyperlipidemia 6. Diabetes mellitus with peripheral neuropathy 7 Chronic renal failure, stage III kidney disease 8 Coronary artery disease with previous coronary intervention and stenting 9 Prostate cancer with previous radiation therapy/brachii therapy/radiation seeds 10. Previous history of CVA 11 Degenerative disc disease or graft 12. Obesity with a BMI of 35.6 kg/m 13 seizure disorder Plan: Continue current medical treatment, patient is on day 4 of Remdesivir, continue Decadron, inflammatory markers are improving, oxygenation seems to be stable on 2 L of oxygen, encourage the patient to deep breathe and cough, to sit up in the chair, increase activity as tolerated, we'll continue to follow the patient, monitor his oxygenation and febrile pattern, monitor inflammatory markers and d- dimer. I performed a history & physical examination of the patient and discussed their management with my nurse practitioner, Shelby Delgado. I reviewed the nurse practitioner's note and agree with the documented findings and plan of care. Lung sounds are positive for diminished breath sounds. The findings and the impression was discussed with the patient. I attest to the documentation by the nurse practitioner. Time with Patient: Less than 30
[2020-07-07 14:57] LABS: HCT 35.8 % (39.0-53.0); HGB 12.7 gm/dL (13.0-17.5); MCH 31.6 pg (25.0-35.0); MCHC 35.5 g/dL (31.0-37.0); Mean Platelet Volume 7.5; Platelet Count 219 k/uL (150-450); RBC 4.02 m/uL (4.30-5.90); RDW 14.1 % (11.5-15.5); WBC 4.7 k/uL (3.8-10.6)
[2020-07-07] MEDS: MULTIVITAMINS, THERA 1 EACH TAB PO SCH (16:26)
[2020-07-07] MEDS: ASPIRIN 81 MG PO SCH (16:26)
[2020-07-07] MEDS: ASCORBIC ACID 500 MG TAB PO SCH (16:26)
[2020-07-07] MEDS: ZINC SULFATE 220 MG CAP PO SCH (16:27)
[2020-07-07] MEDS: THIAMINE 100 MG TAB PO SCH (16:27)
[2020-07-07] MEDS: PRIMIDONE 250 MG TAB PO SCH ×2 (16:27→21:28)
[2020-07-07] MEDS: MAGNESIUM OXIDE 400 MG TAB PO SCH (16:27)
[2020-07-07] MEDS: FOLIC ACID 1 MG TAB PO SCH (16:27)
[2020-07-07 16:47] LABS: Glucose,Whole Blood 246 mg/dL (75-99)
[2020-07-07 20:44] LABS: Glucose,Whole Blood 241 mg/dL (75-99)
[2020-07-07] MEDS: ISOSORBIDE MONONITRATE ER 30 MG TAB.ER.24H PO SCH (21:27)
[2020-07-07] MEDS: FENOFIBRATE 160 MG TAB PO SCH (21:27)
[2020-07-07] MEDS: DONEPEZIL 10 MG TAB PO SCH (21:27)
[2020-07-07] MEDS: ATORVASTATIN 80 MG TAB PO SCH (21:27)
[2020-07-07] MEDS: ESCITALOPRAM 10 MG TAB PO SCH (21:28)
[2020-07-07] MEDS: INSULIN DETEMIR (LEVEMIR) 100 UNIT/ML SYR SQ SCH (21:29)
[2020-07-08] MEDS: NYSTATIN 100,000UNIT/GM CREAM 30 GM TUBE TOPICAL SCH ×3 (02:07→16:44)
[2020-07-08] MEDS: HEPARIN SODIUM,PORCINE 5,000 UNIT/ML 1 ML VIAL SQ SCH ×3 (02:07→16:44)
[2020-07-08] MEDS: ALBUTEROL HFA INHALER INHALATION SCH ×3 (02:35→11:19)
[2020-07-08] MEDS: PANTOPRAZOLE 40 MG TABLET PO SCH (05:47)
[2020-07-08 06:45] LABS: Basophils % (A) 0 %; Eosinophils % (A) 1 %; HCT 36.4 % (39.0-53.0); HGB 12.2 gm/dL (13.0-17.5); Lymphocytes # (A) 0.4 k/uL (1.0-4.8); Lymphocytes % (A) 7 %; MCH 29.6 pg (25.0-35.0); MCHC 33.5 g/dL (31.0-37.0); MCV 88.3 fL (80.0-100.0); Mean Platelet Volume 7.8; Monocytes # (A) 0.3 k/uL (0-1.0); Monocytes % (A) 6 %; Neutrophils # (A) 4.5 k/uL (1.3-7.7); Neutrophils % (A) 85 %; Platelet Count 228 k/uL (150-450); RBC 4.13 m/uL (4.30-5.90); WBC 5.3 k/uL (3.8-10.6)
[2020-07-08 06:59] LABS: Glucose,Whole Blood 160 mg/dL (75-99)
--- NOTE | 2020-07-08 07:23 | XR ---
EXAMINATION TYPE: XR chest 1V portable DATE OF EXAM: 07/08/2020 COMPARISON: 07/06/2020 HISTORY: Shortness of breath TECHNIQUE: Single frontal view of the chest is obtained. FINDINGS: Patchy bilateral areas of infiltrate are seen. Nodular appearing density in the left upper lobe measuring 1.2 cm. Pleural thickening or tiny right effusion with no pneumothorax. Heart size no rmal. IMPRESSION: 1. Stable bilateral areas of patchy infiltrate. 1.2 cm nodule in the left upper lobe. Consider CT [facility].
[2020-07-08] MEDS: INSULIN ASPART (NovoLOG) 100 UNIT/ML VIAL SQ SCH ×3 (08:10→17:06)
[2020-07-08] MEDS: METOPROLOL TARTRATE 25 MG TAB PO SCH ×2 (08:11→16:46)
[2020-07-08] MEDS: dexAMETHasone 2 MG TAB PO SCH (08:11)
[2020-07-08] MEDS: PRASUGREL 10 MG TAB PO SCH (08:11)
[2020-07-08] MEDS: OXcarbazepine 300 MG TAB PO SCH ×2 (08:11→16:46)
[2020-07-08] MEDS: amLODIPine 5 MG TAB PO SCH (08:11)
[2020-07-08] MEDS: MEMANTINE 10 MG TAB PO SCH ×2 (08:12→16:45)
[2020-07-08] MEDS: GABAPENTIN 100 MG CAP PO SCH (08:12)
[2020-07-08 09:49] VITALS: RESP 22
[2020-07-08 10:13] VITALS: BMI 39.4
--- NOTE | 2020-07-08 10:25 | P.DS ---
Providers Date of admission: 07/03/20 11:55 Expected date of discharge: 07/08/20 Attending physician: Cedric Gold Consults: 07/03/20 13:52 Consult Physician Routine Consulting Provider: Clay Maldonado Reason/Comments: Covid positive, difficulty in breathing Do you want consulting provider notified?: Yes Primary care physician: [facility] Course: Final Diagnoses: -Acute Covid 19 pneumonia -Acute COPD exacerbation -Acute hypoxic respiratory failure secondary to the above -Positive blood cultures with Staphylococcus epidermidis, suspect contamination -Mild elevated troponin -Chronic kidney disease stage 3 -Hypertension -Type 2 diabetes mellitus -Diabetic peripheral neuropathy secondary to the above -Coronary artery disease with history of stenting -Prostate cancer status post radiation therapy, radiation seeds -History of CVA -Generalized medical debility -Vascular dementia. -Seizure disorder -Hyperlipidemia -History of mediastinal lymphadenopathy -Degenerative disc disease -Morbid Obesity, BMI 39.5 -Hypomagnesemia Hospital course:This is 69-year-old gentleman from [facility] rehab admitted with acute hypoxic respiratory failure secondary to both acute covid-19 pneumonia and acute COPD exacerbation, and multiple other medical issues. Maintained on Remdesivir, Decadron, zinc, vitamin C, vitamin D. Calcitonin level of 0.25. Hyperglycemic, blood sugars in the 200s. No new labs today. Preliminary blood cultures reporting coagulase-negative staph. Denies nausea vomiting or diarrhea. No abdominal pain. Denies chest pain, palpitations. Afebrile, maintaining O2 sats in the 90s on 2 L nasal cannula. Reports dry cough. 07/05/2020 Continues on Remdesivir, Decadron, zinc, vitamin C, vitamin D. Sleep interrupted cutter v groove hours at around 0200 related to increased coughing. Currently complains of congested, nonproductive cough. Maintaining O2 sats in the 90s on 2 L nasal cannula. Afebrile, T-max 99.1. Levemir insulin dose increased yesterday, blood sugars improved this morning. 07/06/2020 maintained on Covid regimen including Remdesevir, day 3. Afebrile, T-max 99. Final Blood culture reporting Staphylococcus epidermidis.Labs pending. Maintaining O2 sats in the 90s on room air. Chest x-ray recently completed, results pending. Blood sugars better controlled this morning. Ambulating to and from bathroom with walker, tolerating exertion well. 07/07/20 Remdesevir's last dose tomorrow. Maintaining O2 sats in the mid to high 90s on 2 L nasal cannula. Afebrile, normal WBC. Recent creatinine 1.6. Denies chest pain, palpitations or shortness of breath. Tolerating diet with no nausea or vomiting or diarrhea. Positive bowel movement yesterday. Significant clinical improvement. Patient will be discharged back to [facility] subacute rehab today, in a stable condition with guarded prognosis ,after completing last dose of Remdesevir, pending final DC recommendations and clearance from pulmonary. The impression and plan of care has been dictated as directed. : I performed a history and examination of this patient, discussed the same with the dictator. I agree with the dictator's note ,documented as a scribe. Any additional findings or plans will be noted. Patient Condition at Discharge: Stable Plan - Discharge Summary Discharge Rx Participant: No New Discharge Prescriptions: New Gabapentin [Neurontin] 200 mg PO BID@0800,2100 #12 cap Albuterol Inhaler [Ventolin Hfa Inhaler] 2 puff INHALATION Q4H PRN #1 puff PRN Reason: Shortness Of Breath dexAMETHasone [Hexadrol] 6 mg PO DAILY 5 Days #15 tab Continue Aspirin 81 mg PO DAILY@1700 Atorvastatin Calcium [Lipitor] 80 mg PO HS@2100 Torsemide [Demadex] 5 mg PO DAILY PRN PRN Reason: Edema Magnesium Oxide 400 mg PO DAILY@1700 rOPINIRole HCL [Requip] 0.25 mg PO BID@0800,1700 Thiamine [Vitamin B-1] 100 mg PO DAILY@1700 Escitalopram [Lexapro] 10 mg PO DAILY@2100 Folic Acid 1 mg PO DAILY@1700 Prasugrel [Effient] 10 mg PO DAILY@0800 Isosorbide Mononitrate ER [Imdur] 30 mg PO HS@2100 amLODIPine [Norvasc] 5 mg PO DAILY Cholecalciferol (Vitamin D3) [Vitamin D3 (5000 Iu)] 125 mcg PO MOWEFR@1700 Fenofibrate Nanocrystallized [Fenofibrate] 145 mg PO HS@2100 Multivitamins, Thera [Multivitamin (formulary)] 1 tab PO DAILY@1700 Nitroglycerin Sl Tabs [Nitrostat] 0.4 mg SL Q5M PRN PRN Reason: Chest Pain Magnesium Hydroxide [Milk of Magnesia Concentrate] 7,200 mg PO DAILY PRN PRN Reason: Constipation bisacodyL [Dulcolax] 10 mg RECTAL DAILY PRN PRN Reason: Constipation Na Phos,M-B/Na Phos,Di-Ba [Fleet Adult] 133 ml RECTAL DAILY PRN PRN Reason: Constipation Acetaminophen [Tylenol] 650 mg PO Q4H PRN PRN Reason: Fever And/ Or Pain Nystatin 100,000Unit/gm Cream [Mycostatin Cream] 1 applic TOPICAL Q6H INSULIN ASPART (NovoLOG) [NovoLOG (formulary)] See Protocol SQ ACHS Ipratropium/Albuter 20-100Mcg [Combivent Respimat 20-100Mcg Inhaler] 1 puff INHALATION Q6H Glucerna Shake 1 can PO PC-TID PRN PRN Reason: IF LESS THAN 50% MEAL EATEN OXcarbazepine [Trileptal] 300 mg PO BID@0800,1700 Metoprolol Tartrate [Lopressor] 25 mg PO BID@0800,1700 Memantine [Namenda] 10 mg PO BID@0800,1700 Zinc Sulfate 220 mg PO DAILY@1700 Primidone [Mysoline] 250 mg PO HS@2100 Primidone [Mysoline] 125 mg PO DAILY@1400 Pantoprazole [Protonix] 40 mg PO AC-BRKFST@0600 Enoxaparin [Lovenox] 40 mg SQ DAILY@1700 Ascorbic Acid [Vitamin C] 1,000 mg PO DAILY@1700 Donepezil [Aricept] 10 mg PO HS@2100 guaiFENesin [guaiFENesin Oral Solution] 200 mg PO Q4H PRN PRN Reason: Cough Changed Insulin Glargine [Lantus] 25 unit SQ HS@2100 #0 Discontinued Gabapentin [Neurontin] 400 mg PO BID@0800,2100 Discharge Medication List Aspirin 81 mg PO DAILY@1700 01/12/15 [History] Atorvastatin Calcium [Lipitor] 80 mg PO HS@2100 07/30/17 [History] Torsemide [Demadex] 5 mg PO DAILY PRN 02/20/18 [History] Magnesium Oxide 400 mg PO DAILY@1700 12/01/18 [History] Escitalopram [Lexapro] 10 mg PO DAILY@209901/06/19 [History] Folic Acid 1 mg PO DAILY@169901/06/19 [History] Thiamine [Vitamin B-1] 100 mg PO DAILY@169901/06/19 [History] rOPINIRole HCL [Requip] 0.25 mg PO BID@0800,169901/06/19 [History] Isosorbide Mononitrate ER [Imdur] 30 mg PO HS@209904/02/19 [History] Prasugrel [Effient] 10 mg PO DAILY@79904/02/19 [History] Cholecalciferol (Vitamin D3) [Vitamin D3 (5000 Iu)] 125 mcg PO MOWEFR@169906/13/20 [History] Fenofibrate Nanocrystallized [Fenofibrate] 145 mg PO HS@209906/13/20 [History] Multivitamins, Thera [Multivitamin (formulary)] 1 tab PO DAILY@169906/13/20 [History] Nitroglycerin Sl Tabs [Nitrostat] 0.4 mg SL Q5M PRN 06/13/20 [History] amLODIPine [Norvasc] 5 mg PO DAILY 06/13/20 [History] Acetaminophen [Tylenol] 650 mg PO Q4H PRN 07/03/20 [History] Ascorbic Acid [Vitamin C] 1,000 mg PO DAILY@169907/03/20 [History] Donepezil [Aricept] 10 mg PO HS@209907/03/20 [History] Enoxaparin [Lovenox] 40 mg SQ DAILY@169907/03/20 [History] Glucerna Shake 1 can PO PC-TID PRN 07/03/20 [History] INSULIN ASPART (NovoLOG) [NovoLOG (formulary)] See Protocol SQ ACHS 07/03/20 [History] Ipratropium/Albuter 20-100Mcg [Combivent Respimat 20-100Mcg Inhaler] 1 puff INHALATION Q6H 07/03/20 [History] Magnesium Hydroxide [Milk of Magnesia Concentrate] 7,200 mg PO DAILY PRN 07/03/20 [History] Memantine [Namenda] 10 mg PO BID@0800,169907/03/20 [History] Metoprolol Tartrate [Lopressor] 25 mg PO BID@0800,1700 07/03/20 [History] Na Phos,M-B/Na Phos,Di-Ba [Fleet Adult] 133 ml RECTAL DAILY PRN 07/03/20 [H istory] Nystatin 100,000Unit/gm Cream [Mycostatin Cream] 1 applic TOPICAL Q6H 07/03/20 [History] OXcarbazepine [Trileptal] 300 mg PO BID@0800,1700 07/03/20 [History] Pantoprazole [Protonix] 40 mg PO AC-BRKFST@0600 07/03/20 [History] Primidone [Mysoline] 125 mg PO DAILY@1400 07/03/20 [History] Primidone [Mysoline] 250 mg PO HS@2100 07/03/20 [History] Zinc Sulfate 220 mg PO DAILY@17007/03/20 [History] bisacodyL [Dulcolax] 10 mg RECTAL DAILY PRN 07/03/20 [History] guaiFENesin [guaiFENesin Oral Solution] 200 mg PO Q4H PRN 07/03/20 [History] Albuterol Inhaler [Ventolin Hfa Inhaler] 2 puff INHALATION Q4H PRN #1 puff 07/07/20 [Rx] Gabapentin [Neurontin] 200 mg PO BID@0800,2100 #12 cap 07/07/20 [Rx] Insulin Glargine [Lantus] 25 unit SQ HS@2100 #0 07/08/20 [Rx] dexAMETHasone [Hexadrol] 6 mg PO DAILY 5 Days #15 tab 07/08/20 [Rx] Follow up Appointment(s)/Referral(s): Karsten Avalos DO [Primary Care Provider] - 3 Days Tato Milton, [NON-STAFF] - As Needed Activity/Diet/Wound Care/Special Instructions: Tato cbc,bmp in 3 days 2lNC O2
[2020-07-08 10:54] LABS: Anion Gap 21.3 mmol/L (4.00-12.00); BUN/Creat Ratio 16.43 Ratio (12.00-20.00); C Reactive Protein 7.8 mg/dL (0.0-0.8); Carbon Dioxide 27.7 mmol/L (21.6-31.8); Non-African American GFR(CKD) 50.9 (60.0-200.0)
[2020-07-08 11:35] LABS: Glucose,Whole Blood 218 mg/dL (75-99)
[2020-07-08] MEDS: REMDESIVIR 100 MG in SODIUM CHLORIDE 0.9% 250 ML IVPB SCH (11:52)
--- NOTE | 2020-07-08 13:22 | P.PN ---
Subjective Progress Note Date: 07/08/20 69-year-old male patient is very well-known to me. He is a [facility] resident. I took care of him for pneumonia and mediastinal lymphadenopathy and he ultimately improved many years back. He is currently at [facility]. He was brought in for hypoxemia. He is usually on room air oxygen and he required 4 L and he was weaned down to 2 L. His coronavirus was positive on 06/27/2020 at the [facility]. He was running low-grade fever. His pro-calcitonin level is 0.5 and his blood cultures positive for coagulase-negative staph. LDH is 704, CRP is at 178 and the creatinine is at 1.52. He is currently on Decadron. No nausea. No vomiting. No abdominal pain. No altered mentation. No chest pain. Based on those symptoms, the patient came into the hospital and he was admitted for further treatment. Note that he is currently comfortable sitting up on a chair. No altered mentation. 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 Today's evaluation of 07/05/2020, the patient is feeling better. He is less short of breath compared to yesterday. He was weaned down the FiO2 and the patient is currently on room air oxygen with a pulse is 93%. He was given Remdesivir first dose yesterday he tolerated it well without any side effects. He is currently afebrile. He is hemodynamically stable. No other significant events otherwise over the past 24 hours. Despite some limited improvement in his shortness of breath, he is having increased cough. He was In a padded throughout the night. He was taken off and he was placed on room air oxygen. I think he felt better with him being on oxygen. Nevertheless, despite that, his pulse ox remained above 90%. 07/06/2020, the patient is doing very well. He is laying down comfortably in b ed on 2 L of oxygen by nasal cannula. He remains on Decadron. He has been also on Remdesivir and I think he is on his third day of treatment. No chest pain. No shortness of breath. The blood culture came back positive for staph epidermidis. The patient's CRP has dropped considerably compared to baseline.He has chronic kidney failure and the creatinine is at 1.6. D-dimer is at 0.37. Rest of the blood work and electrolytes are all within normal limits. Repeat chest x-ray showed normal heart, normal pulmonary vasculature, minimal subsegmental infiltrate in the left lower lobe. On 07/07/2020 patient seen in follow-up on medical floor, he is resting comfortably in bed, he is in no acute distress, etc. liters of oxygen his pulse ox is 90-96%, his been afebrile, still has shortness of breath with exertion, but no distress at rest. Denies chest pain, palpitations, nausea vomiting or d iarrhea, last d-dimer from yesterday was 0.37, and LDH were improving, with 10.3 and 161 respectively, renal profile was 1.6, BUN of 31, electrolytes were within normal limits On 07/08/2020 patient seen in follow-up on medical floor. Pulse ox is 95%, vital signs have been stable, his been afebrile, no worsening dyspnea, he is breathing easier, doing better, today's chest x-ray has been reviewed showing patchy bilateral areas of infiltrates, and nodular density in the left upper lobe. He's had no nausea vomiting or diarrhea, no cognitive chest pain or palpitations. Patient will receive his last dose of Remdesivir today and discharge is planned for [facility] subacute rehab today Objective - Vital Signs Vital signs: Vital Signs Temp 98.7 F 07/08/20 09:25 Pulse 77 07/08/20 09:25 Resp 22 07/08/20 09:25 BP 172/79 07/08/20 09:25 Pulse Ox 95 07/08/20 09:25 Intake & Output 07/07/20 07/08/20 07/08/20 18:59 06:59 18:59 Intake Total 1690 Output Total 600 Balance -600 1690 Weight 124.738 kg Intake: Intake, IV Titration 1050 Amount Sodium Chloride 0.9% 1, 1050 000 ml @ 75 mls/hr IV . [id number] PA Rx#:[id number] Oral 640 Output: Urine 600 Other: Voiding Method External Catheter Diaper # Voids 3 - Exam GENERAL EXAM: Alert, pleasant, 69-year-old white male oxygen pulse ox of 95-96% on 2 L comfortable in no apparent distress. HEAD: Normocephalic/atraumatic. EYES: Normal reaction of pupils, equal size. Conjunctiva pink, sclera white. NOSE: Clear with pink turbinates. THROAT: No erythema or exudates. NECK: No masses, no JVD, no thyroid enlargement, no adenopathy. CHEST: No chest wall deformity. Symmetrical expansion. LUNGS: Equal air entry with no crackles, wheeze, rhonchi or dullness. CVS: Regular rate and rhythm, normal S1 and S2, no gallops, no murmurs, no rubs ABDOMEN: Soft, nontender. No hepatosplenomegaly, normal bowel sounds, no guarding or rigidity. EXTREMITIES: No clubbing, no edema, no cyanosis, 2+ pulses and upper and lower extremities. MUSCULOSKELETAL: Muscle strength and tone normal. SPINE: No scoliosis or deformity SKIN: No rashes CENTRAL NERVOUS SYSTEM: Alert and oriented -3. No focal deficits, tone is normal in all 4 extremities. PSYCHIATRIC: Alert and oriented -3. Appropriate affect. Intact judgment and insight. - Labs CBC & Chem 7: 07/08/20 06:27 07/08/20 06:27 Labs: Abnormal Lab Results - Last 24 Hours (Table) 07/07/20 07/07/20 07/07/20 Range/Units 14:24 16:45 20:42 RBC 4.02 L (4.30-5.90) m/uL Hgb 12.7 L (13.0-17.5) gm/dL Hct 35.8 L (39.0-53.0) % Lymphocytes # (1.0-4.8) k/uL Chloride (96-109) mmol/L Anion Gap (4.00-12.00) mmol/L Est GFR (CKD-EPI)AfAm (60.0-200.0) Est GFR (CKD-EPI)NonAf (60.0-200.0) Glucose (70-110) mg/dL POC Glucose (mg/dL) 246 H 241 H (75-99) mg/dL C-Reactive Protein (0.0-0.8) mg/dL 07/08/20 07/08/20 07/08/20 Range/Units 06:27 06:27 06:53 RBC 4.13 L (4.30-5.90) m/uL Hgb 12.2 L (13.0-17.5) gm/dL Hct 36.4 L (39.0-53.0) % Lymphocytes # 0.4 L (1.0-4.8) k/uL Chloride 88 L (96-109) mmol/L Anion Gap 21.30 H (4.00-12.00) mmol/L Est GFR (CKD-EPI)AfAm 59.0 L (60.0-200.0) Est GFR (CKD-EPI)NonAf 50.9 L (60.0-200.0) Glucose 158 H (70-110) mg/dL POC Glucose (mg/dL) 160 H (75-99) mg/dL C-Reactive Protein 7.8 H (0.0-0.8) mg/dL 07/08/20 Range/Units 11:32 RBC (4.30-5.90) m/uL Hgb (13.0-17.5) gm/dL Hct (39.0-53.0) % Lymphocytes # (1.0-4.8) k/uL Chloride (96-109) mmol/L Anion Gap (4.00-12.00) mmol/L Est GFR (CKD-EPI)AfAm (60.0-200.0) Est GFR (CKD-EPI)NonAf (60.0-200.0) Glucose (70-110) mg/dL POC Glucose (mg/dL) 218 H (75-99) mg/dL C-Reactive Protein (0.0-0.8) mg/dL Assessment and Plan Plan: Assessment: 1 acute COVID19 related infection/pneumonia, inflammatory markers are mildly elevated and based on today's CRP, the levels of dropped significantly while being on treatment with anti-inflammatory and antiviral agents. 2 coagulase-negative staph in the blood, likely a contaminant rather than true infection.. The patient's blood culture came back positive for staph epidermidis, likely contaminant 3 previous history of mediastinal lymphadenopathy. Bronchoscopy was done in the past. Findings were positive for rhinovirus otherwise no other positive cultures were identified. 4. Shortness of breath secondary to above. Patient also has a component of COPD exacerbation, bronchospasm wheezing improved considerably with a combination of antibiotics bronchodilators and steroids. The patient remains on oral Decadron and Remdesivir 5. Hypertention, hyperlipidemia 6. Diabetes mellitus with peripheral neuropathy 7 Chronic renal failure, stage III kidney disease 8 Coronary artery disease with previous coronary intervention and stenting 9 Prostate cancer with previous radiation therapy/brachii therapy/radiation seeds 10. Previous history of CVA 11 Degenerative disc disease or graft 12. Obesity with a BMI of 35.6 kg/m 13 seizure disorder Plan: Clinically patient remains stable, continues to improve, no worsening dyspnea, patient is on room air, no fever or chills, no cough, breathing comfortably, he is receiving his last dose of Remdesivir today continues on oral Decadron, no acute events overnight, discharge planning is in progress for transfer to [facility] today I performed a history & physical examination of the patient and discussed their management with my nurse practitioner, Shelby Delgado. I reviewed the nurse practitioner's note and agree with the documented findings and plan of care. Lung sounds are positive for diminished breath sounds. The findings and the impression was discussed with the patient. I attest to the documentation by the nurse practitioner. Time with Patient: Less than 30
[2020-07-08 14:46] VITALS: BP 160/79; PULSE 78; TEMP 98.8
[2020-07-08 16:28] LABS: Glucose,Whole Blood 292 mg/dL (75-99)
[2020-07-08] MEDS: PRIMIDONE 250 MG TAB PO SCH (16:44)
[2020-07-08] MEDS: MAGNESIUM OXIDE 400 MG TAB PO SCH (16:45)
[2020-07-08] MEDS: ASCORBIC ACID 500 MG TAB PO SCH (16:45)
[2020-07-08] MEDS: FOLIC ACID 1 MG TAB PO SCH (16:45)
[2020-07-08] MEDS: ASPIRIN 81 MG PO SCH (16:45)
[2020-07-08] MEDS: CHOLECALCIFEROL 25 MCG (1000 IU) TABLET PO SCH (16:45)
[2020-07-08] MEDS: THIAMINE 100 MG TAB PO SCH (16:46)
[2020-07-08] MEDS: ZINC SULFATE 220 MG CAP PO SCH (16:46)
[2020-07-08] MEDS: MULTIVITAMINS, THERA 1 EACH TAB PO SCH (16:46)
== END 2020-07-08 18:22 | DRG 177 ==
LOC: EC 09:35 → 4SSUR 11:55
PROVIDERS: ADMIT Family Medicine; ATTEND Family Medicine
PROC: XW033E5 Introduction of Remdesivir Anti-infective into Peripheral Vein, Percutaneous Approach, New Technology Group 5 (ICD-10-PCS; principal; 2020-07-03)
DX: U07.1 COVID-19 (principal); J12.82 Pneumonia due to coronavirus disease 2019; J96.01 Acute respiratory failure with hypoxia; J44.0 Chronic obstructive pulmonary disease with (acute) lower respiratory infection; J44.1 Chronic obstructive pulmonary disease with (acute) exacerbation; E11.22 Type 2 diabetes mellitus with diabetic chronic kidney disease; I12.9 Hypertensive chronic kidney disease with stage 1 through stage 4 chronic kidney disease, or unspecified chronic kidney disease; N18.30 Chronic kidney disease, stage 3 unspecified; E11.42 Type 2 diabetes mellitus with diabetic polyneuropathy; C61 Malignant neoplasm of prostate; E11.65 Type 2 diabetes mellitus with hyperglycemia; G40.909 Epilepsy, unspecified, not intractable, without status epilepticus; F40.240 Claustrophobia; E66.01 Morbid (severe) obesity due to excess calories; E83.42 Hypomagnesemia; E78.5 Hyperlipidemia, unspecified; F17.200 Nicotine dependence, unspecified, uncomplicated; Z96.41 Presence of insulin pump (external) (internal); F01.50 Vascular dementia, unspecified severity, without behavioral disturbance, psychotic disturbance, mood disturbance, and anxiety; M19.90 Unspecified osteoarthritis, unspecified site; R79.82 Elevated C-reactive protein (CRP); G89.29 Other chronic pain; M54.9 Dorsalgia, unspecified; I25.119 Atherosclerotic heart disease of native coronary artery with unspecified angina pectoris; Z96.1 Presence of intraocular lens; L98.9 Disorder of the skin and subcutaneous tissue, unspecified; R53.81 Other malaise; Z79.02 Long term (current) use of antithrombotics/antiplatelets; Z68.39 Body mass index [BMI] 39.0-39.9, adult; Z79.82 Long term (current) use of aspirin; I25.2 Old myocardial infarction; Z79.4 Long term (current) use of insulin; Z95.5 Presence of coronary angioplasty implant and graft; Z92.3 Personal history of irradiation; Z87.442 Personal history of urinary calculi; Z79.899 Other long term (current) drug therapy; Z87.01 Personal history of pneumonia (recurrent); Z98.42 Cataract extraction status, left eye; Z98.41 Cataract extraction status, right eye; Z98.890 Other specified postprocedural states; I69.392 Facial weakness following cerebral infarction; Z80.52 Family history of malignant neoplasm of bladder; Z81.8 Family history of other mental and behavioral disorders; Z80.8 Family history of malignant neoplasm of other organs or systems
CPT/HCPCS: 36415; 71045; 80048; 80053; 82272; 82728; 83605; 83615; 83735; 83880; 84145; 84484; 85025; 85027; 85379; 85610; 85730; 86140; 87040; 87077; 87186; 93005; 94640; 94760; 96374; 96375; 99285

== ENCOUNTER → 2020-09-15 | Outpatient (CLI) | payer MEDICARE ==
[2020-09-15 19:37] LABS: Basophils # (A) 0.06 X 10*3/uL (0.00-0.10); Basophils % (A) 0.9 %; Eosinophils # (A) 0.17 X 10*3/uL (0.04-0.35); Eosinophils % (A) 2.6 %; HCT 46.3 % (39.6-50.0); HGB 14.5 g/dL (13.0-17.0); Lymphocytes % (A) 12.4 %; MCH 29.6 pg (27.0-32.0); MCHC 31.3 g/dL (32.0-37.0); MCV 94.5 fL (80.0-97.0); Mean Platelet Volume 10.5 fL (9.5-12.2); Monocytes # (A) 0.59 X 10*3/uL (0.20-1.00); Monocytes % (A) 9.1 %; Neutrophils # (A) 4.79 X 10*3/uL (1.80-7.70); Neutrophils % (A) 74.4 %; Platelet Count 306 X 10*3/uL (140-440); RDW 15.8 % (11.5-14.5); WBC 6.45 X 10*3/uL (4.50-10.00)
[2020-09-16 08:43] LABS: African American GFR (CKD) 43.5 (60.0-200.0); Albumin 4.7 g/dL (3.80-4.90); Albumin/Globulin Ratio 2.14 (1.60-3.17); Anion Gap 12.2 mmol/L (4.00-12.00); BUN/Creat Ratio 11.67 Ratio (12.00-20.00); Calcium 10.4 mg/dL (8.7-10.3); Carbon Dioxide 26.8 mmol/L (21.6-31.8); Globulin 2.2 g/dL (1.6-3.3); Non-African American GFR(CKD) 37.6 (60.0-200.0); Potassium 4.9 mmol/L (3.5-5.5); Total Protein 6.9 g/dL (6.2-8.2)
[2020-09-16 20:04] LABS: Total Bilirubin 0.4 mg/dL (0.3-1.2)
== END | disposition home or self-care (01) ==
LOC: LABWHC1 09:18
PROVIDERS: ATTEND Psychiatry & Neurology Pain Medicine
DX: G83.84 Todd's paralysis (postepileptic) (principal)
CPT/HCPCS: 36415; 80053; 85025

== ENCOUNTER → 2020-12-21 | Outpatient (CLI) | payer MEDICARE ==
[2020-12-21 17:56] LABS: Hemoglobin A1C 7.5 % (4.0-6.0)
[2020-12-21 19:36] LABS: African American GFR (CKD) 46.3 (60.0-200.0); Albumin 4.3 g/dL (3.80-4.90); Albumin/Globulin Ratio 1.95 (1.60-3.17); Anion Gap 7.7 mmol/L (4.00-12.00); BUN/Creat Ratio 11.76 Ratio (12.00-20.00); Calcium 9.2 mg/dL (8.7-10.3); Carbon Dioxide 27.3 mmol/L (21.6-31.8); Chol/HDL Ratio 4.78; Globulin 2.2 g/dL (1.6-3.3); LDL Cholesterol,Calculated 129.4 mg/dL (0.0-131.0); Potassium 4.6 mmol/L (3.5-5.5); Total Bilirubin 0.4 mg/dL (0.3-1.2); Total Protein 6.5 g/dL (6.2-8.2); VLDL Calculation 40.6 mg/dL (5.00-40.00)
== END | disposition home or self-care (01) ==
LOC: LABWHC1 09:46
PROVIDERS: ATTEND Internal Medicine Endocrinology, Diabetes & Metabolism
DX: E11.65 Type 2 diabetes mellitus with hyperglycemia (principal)
CPT/HCPCS: 36415; 80053; 80061; 82043; 82570; 83036; 84443

== ENCOUNTER 2021-01-27 06:43 | Day surgery (SDC) | payer MEDICARE ==
[2021-01-24 11:26] VITALS: BMI 36.6
[~2021-01-27 06:43] MED LIST changes: +LACTATED RINGERS 1,000 ML IV SCH; +LIDOCAINE 1% (10MG/ML) FOR IV START INTRADERMA PRN; -SODIUM CHLORIDE 0.9% 1,000 ML IV SCH
[2021-01-27] MEDS ORDERED: LACTATED RINGERS 1,000 ML IV ONE (07:11)
[2021-01-27 07:12] VITALS: TEMP 97.8
[2021-01-27 07:21] LABS: Glucose,Whole Blood 63 mg/dL (75-99)
[2021-01-27] MEDS ORDERED: LIDOCAINE 1% INJ 10MG/ML (20 ML MDV) ONE (07:30)
[2021-01-27] MEDS ORDERED: PROPOFOL 10 MG/ML 20 ML VIAL IV ONE (07:30)
[2021-01-27] MEDS ORDERED: DEXTROSE 50% SYRINGE 50 ML IVP ONE ×2 (07:35)
--- NOTE | 2021-01-27 07:39 | P.HPIHPCON ---
History of Present Illness H&P Date: 01/27/21 70-year-old male presents today for screening colonoscopy. He states he has had colonoscopy previously doesn't recall when that was. Denies any blood in his stool. Denies any family members with colon cancer. Denies any abdominal pain or concerns with his bowel function. Consent for Procedure: I have explained the operation/procedure to the patient, including the risks, benefits, side effects, alternative therapies (including not receiving the proposed treatment or service), the likelihood of the patient achieving his/her goals, and potential recuperation problems for the procedure/sedation/analgesia, as well as any blood products, if indicated. I also explained to the patient the risks, benefits and side effects of the alternatives, as well as the risks related to not receiving the proposed procedure, care, treatment, or services. - Review of Systems All systems: negative Past Medical History Past Medical History: Coronary Artery Disease (CAD), Cancer, Chest Pain / Angina, CVA/TIA, Dementia, Diabetes Mellitus, Hyperlipidemia, Hypertension, Myocardial Infarction ([place]), Osteoarthritis (OA), Pneumonia, Renal Disease, Skin Disorder Additional Past Medical History / Comment(s): SEE DR BLEVINS'S NOTE FOR CARDIAC HX. HX OF SYNCOPAL EPISODES OF UNKNOWN CAUSE. Diabetes mellitus currently on insulin pump. SHORT TERM MEMORY LOSS. 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 COLONOCOSPY, LUMBAR EPIDURAL INJ, total 4 cardiac stents (2010 1 stent and 2014 3 stents),juventino cataracts/lens implants, colonoscopy, gold seed implants for prostate cancer. back surgery (11/2018) Past Anesthesia/Blood Transfusion Reactions: Motion Sickness Additional Past Anesthesia/Blood Transfusion Reaction / Comment(s): CLAUSTROPHOBIC Date of Last Stent Placement:: 2014 Smoking Status: Former smoker - Past Family History Father Family Medical History: Cancer Additional Family Medical History / Comment(s): FATHER HAD BLADDER CANCER AND OF THIS IN HIS 40'S Mother Family Medical History: Cancer, Dementia Additional Family Medical History / Comment(s): UTERINE CANCER. Mother of dementia at the age of 89yrs. Medications and Allergies Home Medications Medication Instructions Recorded Confirmed Type Aspirin 81 mg PO DAILY@0 01/12/15 01/24/21 History Atorvastatin Calcium [Lipitor] 80 mg PO HS@209907/30/17 01/24/21 History Torsemide [Demadex] 5 mg PO DAILY PRN 02/20/18 01/24/21 History Magnesium Oxide 400 mg PO DAILY@169912/01/18 01/24/21 History Escitalopram [Lexapro] 10 mg PO DAILY@0800 01/06/19 01/24/21 History Thiamine [Vitamin B-1] 100 mg PO DAILY@169901/06/19 01/24/21 History rOPINIRole HCL [Requip] 0.25 mg PO BID@0800,0 01/06/19 01/24/21 History Isosorbide Mononitrate ER [Imdur] 30 mg PO HS@0804/02/19 01/24/21 History Prasugrel [Effient] 10 mg PO DAILY@0800 04/02/19 01/24/21 History Fenofibrate Nanocrystallized 145 mg PO HS@209906/13/20 01/24/21 History [Fenofibrate] Nitroglycerin Sl Tabs [Nitrostat] 0.4 mg SL Q5M PRN 06/13/20 01/24/21 History amLODIPine [Norvasc] 5 mg PO DAILY 06/13/20 01/24/21 History Acetaminophen [Tylenol] 650 mg PO Q4H PRN 07/03/20 01/24/21 History Ascorbic Acid [Vitamin C] 1,000 mg PO DAILY@0 07/03/20 01/24/21 History Donepezil [Aricept] 10 mg PO HS@209907/03/20 01/24/21 History Ipratropium/Albuter 20-100Mcg 1 puff INHALATION Q6H 07/03/20 01/24/21 History [Combivent Respimat 20-100Mcg Inhaler] Memantine [Namenda] 10 mg PO BID@0800,1700 07/03/20 01/24/21 History Metoprolol Tartrate [Lopressor] 25 mg PO BID@0800,1700 07/03/20 01/24/21 History Nystatin 100,000Unit/gm Cream 1 applic TOPICAL Q6H 07/03/20 01/24/21 History [Mycostatin Cream] OXcarbazepine [Trileptal] 300 mg PO BID@0800,1700 07/03/20 01/24/21 History Pantoprazole [Protonix] 40 mg PO DAILY@2100 07/03/20 01/24/21 History Primidone [Mysoline] 125 mg PO DAILY@1400 07/03/20 01/24/21 History Primidone [Mysoline] 250 mg PO HS@2100 07/03/20 01/24/21 History Gabapentin [Neurontin] 400 mg PO BID 01/24/21 01/24/21 History INSULIN LISPRO (For Pump) [humaLOG 0.01 units SQ-PUMP CONTINUOUS 01/24/21 01/24/21 History (For Pump)] Losartan [Cozaar] 50 mg PO DAILY 01/24/21 01/24/21 History Allergies Allergy/AdvReac Type Severity Reaction Status Date / Time No Known Allergies Allergy Verified 01/24/21 11:07 Surgical - Exam Osteopathic Statement: *. No significant issues noted on an osteopathic structural exam other than those noted in the History and Physical/Consult. Vital Signs Temp Pulse Resp BP Pulse Ox 97.8 F 79 18 191/91 98 01/27/21 07:10 01/27/21 07:10 01/27/21 07:10 01/27/21 07:10 01/27/21 07:10 - General no distress - Eyes normal ocular movement - Neck trachea midline - Respiratory normal respiratory effort - Abdomen Abdomen: soft, non tender Results - Labs Abnormal Lab Results - Last 24 Hours (Table) 01/27/21 Range/Units 07:20 POC Glucose (mg/dL) 63 L (75-99) mg/dL Assessment and Plan Plan: Plan for screening colonoscopy. Risks, benefits and alternatives were provided to the patient. He did provide consent. Recommendations to be made after procedure.
--- NOTE | 2021-01-27 08:22 | P.PCN ---
Date of Procedure: 01/27/21 Preoperative Diagnosis: Screening Postoperative Diagnosis: Colon polyps Procedure(s) Performed: Colonoscopy with hot snare polypectomy Anesthesia: MAC Surgeon: Damian Shaffer Pathology: other (Cecal polyp 2, ascending colon polyp x2, transverse colon polyp) Condition: stable Disposition: same day Indications for Procedure: 70-year-old male presents for screening colonoscopy. He has not had a colonoscopy many years. Denies any blood in his stool. No family history of colon cancer. Risks, benefits and alternatives were provided to the patient. He did provide consent prior to attending the endoscopy suite Operative Findings: Cecal polyp 2 Ascending colon polyp 2 Transverse colon polyp Description of Procedure: The patient was brought into the endoscopy suite and placed in left lateral decubitus position. Adequate sedation was achieved using conscious sedation. A digital rectal exam was performed and mild internal hemorrhoids were palpated. An endoscope was then placed in the rectum and advanced to the cecum as identified by landmarks including the appendiceal orifice and the ileocecal valve. The prep was good. The colonoscope was then slowly withdrawn, examining for any mucosal abnormalities. The cecum, ascending, transverse, descending and sigmoid colon were visualized adequately. 2 polyps were noted in the cecum. These are removed with hot snare polypectomy. 2 additional polyps were noted in the ascending colon. These were also removed with hot snare polypectomy. A pedunculated polyp was noted in the transverse colon. This was removed with hot snare polypectomy. Hemostasis was noted to be maintained. Retroflexion was performed in the rectum and internal hemorrhoids were visible. Excess air was removed, the colonoscope withdrawn and the procedure terminated. The patient was then transferred to the recovery unit in stable condition. Repeat colonoscopy should be performed in 3 years. I would recommend that the patient holds his antiplatelet medication for 2 additional days.
[2021-01-27 08:25] LABS: Glucose,Whole Blood 71 mg/dL (75-99)
[2021-01-27 08:36] VITALS: RESP 16
[2021-01-27 08:55] LABS: Glucose,Whole Blood 62 mg/dL (75-99)
[2021-01-27 09:10] VITALS: BP 164/98; PULSE 64
[2021-01-27 09:26] LABS: Glucose,Whole Blood 76 mg/dL (75-99)
== END 2021-01-27 09:40 | disposition home or self-care (01) ==
LOC: ORWHC2ENDO 06:43
PROVIDERS: ATTEND Surgery
DX: Z12.11 Encounter for screening for malignant neoplasm of colon (principal); D12.0 Benign neoplasm of cecum; D12.2 Benign neoplasm of ascending colon; D12.3 Benign neoplasm of transverse colon; I25.10 Atherosclerotic heart disease of native coronary artery without angina pectoris; I25.2 Old myocardial infarction; I10 Essential (primary) hypertension; E78.5 Hyperlipidemia, unspecified; E11.9 Type 2 diabetes mellitus without complications; F17.200 Nicotine dependence, unspecified, uncomplicated; F03.90 Unspecified dementia, unspecified severity, without behavioral disturbance, psychotic disturbance, mood disturbance, and anxiety
CPT/HCPCS: 45380; 45385; 88305; J2001; J2704

== ENCOUNTER 2021-03-11 14:52 | Inpatient (IN) | payer MEDICARE ==
[2021-03-11] MEDS ORDERED: HYDROmorphone 0.5 MG/0.5 ML SYRINGE IVP STA (15:46)
--- NOTE | 2021-03-11 15:57 | ED ---
Fall HPI - General Chief Complaint: Fall Stated Complaint: fall Time Seen by Provider: 03/11/21 15:00 Source: patient, EMS Mode of arrival: EMS - History of Present Illness Initial Comments: 70-year-old male with a history of CVA with left hemiparesis who fell twice in the last day states he fell last night and this morning states he could not get himself up due to weakness on the left side worse than usual he struck his head against the nightstand possibly twice she is not sure exactly. Up and some 6/10 pain some slight neck pain no other new deficits no fevers chills nausea vomiting sweats. He was brought in by EMS for evaluation MD Complaint: fall - Related Data Home Medications Medication Instructions Recorded Confirmed Aspirin 81 mg PO DAILY 01/12/15 03/11/21 Atorvastatin Calcium [Lipitor] 80 mg PO HS 07/30/17 03/11/21 Torsemide [Demadex] 5 mg PO DAILY PRN 02/20/18 03/11/21 Magnesium Oxide 400 mg PO DAILY 12/01/18 03/11/21 Escitalopram [Lexapro] 10 mg PO DAILY 01/06/19 03/11/21 Thiamine [Vitamin B-1] 100 mg PO DAILY@1200 01/06/19 03/11/21 rOPINIRole HCL [Requip] 0.25 mg PO BID 01/06/19 03/11/21 Isosorbide Mononitrate ER [Imdur] 30 mg PO DAILY 04/02/19 03/11/21 Prasugrel [Effient] 10 mg PO DAILY 04/02/19 03/11/21 Fenofibrate Nanocrystallized 145 mg PO HS 06/13/20 03/11/21 [Fenofibrate] Nitroglycerin Sl Tabs [Nitrostat] 0.4 mg SL Q5M PRN 06/13/20 03/11/21 amLODIPine [Norvasc] 5 mg PO DAILY 06/13/20 03/11/21 Ascorbic Acid [Vitamin C] 1,000 mg PO DAILY@1200 07/03/20 03/11/21 Donepezil [Aricept] 10 mg PO HS@2100 07/03/20 03/11/21 Metoprolol Tartrate [Lopressor] 25 mg PO BID 07/03/20 03/11/21 OXcarbazepine [Trileptal] 300 mg PO BID 07/03/20 03/11/21 Pantoprazole [Protonix] 40 mg PO HS 07/03/20 03/11/21 Primidone [Mysoline] 125 mg PO DAILY@1400 07/03/20 03/11/21 Primidone [Mysoline] 250 mg PO HS@2100 07/03/20 03/11/21 Gabapentin [Neurontin] 400 mg PO BID 01/24/21 03/11/21 INSULIN LISPRO (For Pump) [humaLOG 0.01 units SQ-PUMP CONTINUOUS 01/24/21 03/11/21 (For Pump)] Dapagliflozin Propanediol [Farxiga] 5 mg PO DAILY 03/11/21 03/11/21 Ergocalciferol [Vitamin D2 (1250 1,250 mcg PO Q30D 03/11/21 03/11/21 Mcg = 15355 Iu)] Folic Acid 1 mg PO DAILY@1200 03/11/21 03/11/21 Memantine [Namenda] 10 mg PO BID 03/11/21 03/11/21 Multivitamins, Thera [Multivitamin 1 tab PO DAILY@1200 03/11/21 03/11/21 (formulary)] Allergies Allergy/AdvReac Type Severity Reaction Status Date / Time No Known Allergies Allergy Verified 03/11/21 15:03 Review of Systems ROS Statement: Those systems with pertinent positive or pertinent negative responses have been documented in the HPI. ROS Other: All systems not noted in ROS Statement are negative. Past Medical History Past Medical History: Coronary Artery Disease (CAD), Cancer, Chest Pain / Angina, CVA/TIA, Dementia, Diabetes Mellitus, Hyperlipidemia, Hypertension, Myocardial Infarction (OR), Osteoarthritis (OA), Pneumonia, Renal Disease, Skin Disorder Additional Past Medical History / Comment(s): SEE DR BLEVINS'S NOTE FOR CARDIAC HX. HX OF SYNCOPAL EPISODES OF UNKNOWN CAUSE. Diabetes mellitus currently on insulin pump. SHORT TERM MEMORY LOSS. seizure disorder, peripheral neuropathy, prostate cancer treated by radiation therapy, CVA back in April 2016 with right-sided weakness and facial droop, chronic back pain, L3 L4 L5 and S1 lumbosacral disease/fractures, nephrolithiasis, chronic renal failure, hy pertension, hyperlipidemia, coronary artery disease Last Myocardial Infarction Date:: 2014 History of Any Multi-Drug Resistant Organisms: None Reported Past Surgical History: Back Surgery, Heart Catheterization With Stent Additional Past Surgical History / Comment(s): COMPETENT TO SIGN SURGICAL CONS ENT. COLONOCOSPY, LUMBAR EPIDURAL INJ, total 4 cardiac stents (2010 1 stent and 2014 3 stents),juventino cataracts/lens implants, colonoscopy, gold seed implants for prostate cancer. back surgery (11/2018) Past Anesthesia/Blood Transfusion Reactions: Motion Sickness Additional Past Anesthesia/Blood Transfusion Reaction / Comment(s): CLAUSTROPHOBIC Date of Last Stent Placement:: 2014 Past Psychological History: No Psychological Hx Reported, Depression Smoking Status: Former smoker Past Alcohol Use History: None Reported Past Drug Use History: None Reported - Past Family History Father Family Medical History: Cancer Additional Family Medical History / Comment(s): FATHER HAD BLADDER CANCER AND OF THIS IN HIS 40'S Mother Family Medical History: Cancer, Dementia Additional Family Medical History / Comment(s): UTERINE CANCER. Mother of dementia at the age of 89yrs. General Exam - General Exam Comments Initial Comments: This is a well-developed well-nourished awake alert oriented 3 male [place] Coma Scale of 15 Limitations: no limitations General appearance: alert, in no apparent distress Head exam: Present: other (Examination of scalp reveals no evidence of a traumatic injury at this time he does have a skin fold across the lower occipital scalp no step-off no crepitation) Eye exam: Present: normal appearance, PERRL, EOMI. Absent: scleral icterus, conjunctival injection, periorbital swelling ENT exam: Present: mucous membranes dry Neck exam: Present: normal inspection, tenderness (7. Bruits auscultated no spinous process tenderness), other Respiratory exam: Present: normal lung sounds bilaterally. Absent: respiratory distress, wheezes, rales, rhonchi, stridor Cardiovascular Exam: Present: regular rate, normal rhythm, normal heart sounds. Absent: systolic murmur, diastolic murmur, rubs, gallop, clicks GI/Abdominal exam: Present: soft, normal bowel sounds. Absent: distended, tenderness, guarding, rebound, rigid Extremities exam: Present: normal inspection, normal capillary refill. Absent: full ROM, tenderness, pedal edema, joint swelling, calf tenderness Back exam: Present: normal inspection Neurological exam: Present: alert, oriented X3, motor sensory deficit, other (Left hemiparesis the patient states normal for him) Psychiatric exam: Present: normal affect, normal mood Skin exam: Present: warm, dry, intact, normal color. Absent: rash Course Vital Signs 03/11/21 14:54 Temperature 98.7 F Pulse Rate 62 Respiratory 18 Rate Blood Pressure 103/68 O2 Sat by Pulse 96 Oximetry Medical Decision Making - Medical Decision Making I did discuss findings with patient and his . Patient's did indicate to his left leg is weaker than normal. Unclear whether this actually occurred likely last night or yesterday. Patient is not a candidate for intervention at this time he will be admitted for inpatient evaluation and treatment. I did discuss case the desk a covering for Dr. Tripp. - Lab Data Result diagrams: 03/11/21 15:48 03/11/21 15:48 Lab Results 03/11/21 03/11/21 03/11/21 Range/Units 15:48 15:48 15:48 WBC 6.8 (3.8-10.6) k/uL RBC 4.93 (4.30-5.90) m/uL Hgb 14.7 (13.0-17.5) gm/dL Hct 44.5 (39.0-53.0) % MCV 90.3 (80.0-100.0) fL MCH 29.8 (25.0-35.0) pg MCHC 33.0 (31.0-37.0) g/dL RDW 14.5 (11.5-15.5) % Plt Count 243 (150-450) k/uL MPV 8.1 Neutrophils % 79 % Lymphocytes % 9 % Monocytes % 7 % Eosinophils % 2 % Basophils % 1 % Neutrophils # 5.4 (1.3-7.7) k/uL Lymphocytes # 0.6 L (1.0-4.8) k/uL Monocytes # 0.5 (0-1.0) k/uL Eosinophils # 0.1 (0-0.7) k/uL Basophils # 0.1 (0-0.2) k/uL Sodium 137 (137-145) mmol/L Potassium 5.0 (3.5-5.1) mmol/L Chloride 105 (98-107) mmol/L Carbon Dioxide 25 (22-30) mmol/L Anion Gap 7 mmol/L BUN 24 H (9-20) mg/dL Creatinine 1.87 H (0.66-1.25) mg/dL Est GFR (CKD-EPI)AfAm 41 (>60 ml/min/1.73 sqM) Est GFR (CKD-EPI)NonAf 36 (>60 ml/min/1.73 sqM) Glucose 84 (74-99) mg/dL Calcium 9.3 (8.4-10.2) mg/dL Magnesium 2.2 (1.6-2.3) mg/dL Total Bilirubin 0.7 (0.2-1.3) mg/dL AST 40 (17-59) U/L ALT 22 (4-49) U/L Alkaline Phosphatase 72 (38-126) U/L Creatine Kinase 154 (55-170) U/L Troponin I <0.012 (0.000-0.034) ng/mL Total Protein 7.0 (6.3-8.2) g/dL Albumin 4.1 (3.5-5.0) g/dL Urine Color Urine Appearance (Clear) Urine pH (5.0-8.0) Ur Specific [place] (1.001-1.035) Urine Protein (Negative) Urine Glucose (UA) (Negative) Urine Ketones (Negative) Urine Blood (Negative) Urine Nitrite (Negative) Urine Bilirubin (Negative) Urine Urobilinogen (<2.0) mg/dL Ur Leukocyte Esterase (Negative) 03/11/21 Range/Units 16:48 WBC (3.8-10.6) k/uL RBC (4.30-5.90) m/uL Hgb (13.0-17.5) gm/dL Hct (39.0-53.0) % MCV (80.0-100.0) fL MCH (25.0-35.0) pg MCHC (31.0-37.0) g/dL RDW (11.5-15.5) % Plt Count (150-450) k/uL MPV Neutrophils % % Lymphocytes % % Monocytes % % Eosinophils % % Basophils % % Neutrophils # (1.3-7.7) k/uL Lymphocytes # (1.0-4.8) k/uL Monocytes # (0-1.0) k/uL Eosinophils # (0-0.7) k/uL Basophils # (0-0.2) k/uL Sodium (137-145) mmol/L Potassium (3.5-5.1) mmol/L Chloride (98-107) mmol/L Carbon Dioxide (22-30) mmol/L Anion Gap mmol/L BUN (9-20) mg/dL Creatinine (0.66-1.25) mg/dL Est GFR (CKD-EPI)AfAm (>60 ml/min/1.73 sqM) Est GFR (CKD-EPI)NonAf (>60 ml/min/1.73 sqM) Glucose (74-99) mg/dL Calcium (8.4-10.2) mg/dL Magnesium (1.6-2.3) mg/dL Total Bilirubin (0.2-1.3) mg/dL AST (17-59) U/L ALT (4-49) U/L Alkaline Phosphatase (38-126) U/L Creatine Kinase (55-170) U/L Troponin I (0.000-0.034) ng/mL Total Protein (6.3-8.2) g/dL Albumin (3.5-5.0) g/dL Urine Color Yellow Urine Appearance Clear (Clear) Urine pH 5.0 (5.0-8.0) Ur Specific [place] 1.016 (1.001-1.035) Urine Protein Negative (Negative) Urine Glucose (UA) 4+ H (Negative) Urine Ketones Negative (Negative) Urine Blood Negative (Negative) Urine Nitrite Negative (Negative) Urine Bilirubin Negative (Negative) Urine Urobilinogen <2.0 (<2.0) mg/dL Ur Leukocyte Esterase Negative (Negative) - EKG Data -: EKG Interpreted by Me EKG shows normal: sinus rhythm EKG Comments: Sinus rhythm of 60. Interval 200 QRS duration 84 daily since QTC 412/412 old inferior changes no acute ST-T wave elevation - Radiology Data Radiology results: report reviewed ((Reviewed no acute findings.), image reviewed Disposition Clinical Impression: Fall, CVA (cerebral vascular accident), Dehydration Disposition: ADMITTED IP TO THIS [facility] Condition: Fair Referrals: Cedric Gold DO [Primary Care Provider] - 1-2 days
[2021-03-11 16:18] LABS: Basophils # (A) 0.1 k/uL (0-0.2); Basophils % (A) 1 %; Eosinophils # (A) 0.1 k/uL (0-0.7); Eosinophils % (A) 2 %; HCT 44.5 % (39.0-53.0); HGB 14.7 gm/dL (13.0-17.5); Lymphocytes # (A) 0.6 k/uL (1.0-4.8); Lymphocytes % (A) 9 %; MCH 29.8 pg (25.0-35.0); MCV 90.3 fL (80.0-100.0); Mean Platelet Volume 8.1; Monocytes # (A) 0.5 k/uL (0-1.0); Monocytes % (A) 7 %; Neutrophils # (A) 5.4 k/uL (1.3-7.7); Neutrophils % (A) 79 %; Platelet Count 243 k/uL (150-450); RBC 4.93 m/uL (4.30-5.90); RDW 14.5 % (11.5-15.5); WBC 6.8 k/uL (3.8-10.6)
[2021-03-11 16:22] LABS: Albumin 4.1 g/dL (3.5-5.0); Calcium 9.3 mg/dL (8.4-10.2); Magnesium 2.2 mg/dL (1.6-2.3); Total Bilirubin 0.7 mg/dL (0.2-1.3)
--- NOTE | 2021-03-11 16:30 | CT ---
EXAMINATION TYPE: CT brain cspine wo con DATE OF EXAM: 03/11/2021 COMPARISON: 06/13/2020 HISTORY: h/o fall and lac on head CT DLP: 1531.3 mGycm Automated exposure control for dose reduction was used. Images obtained of the brain and cervical spine without contrast. There is cerebral cortical atrophy. There is no mass effect nor midline shift. There is no sign of in tracranial hemorrhage. Calvarium is intact. There is normal aeration of the mastoid sinuses. The cervical vertebra have normal alignment. There is multilevel degenerative disc space narrowing an d spurring of the endplates. There is multilevel hypertrophic facet arthropathy. Prevertebral soft ti ssues appear intact. IMPRESSION: Cerebral atrophy. No acute intracranial abnormality. Cervical multilevel spondylotic changes. No fracture. Brain and cervical spine not changed compared to old exam.
--- NOTE | 2021-03-11 16:31 | XR ---
EXAMINATION TYPE: XR humerus LT DATE OF EXAM: 03/11/2021 COMPARISON: NONE HISTORY: Fall. Pain. TECHNIQUE: 2 views FINDINGS: Glenohumeral joint is intact. Elbow joint is intact. There is some spurring of the medial h umeral condyle. I see no fracture nor dislocation. IMPRESSION: No acute abnormality of the left humerus.
--- NOTE | 2021-03-11 16:34 | XR ---
EXAMINATION TYPE: XR chest 1V portable DATE OF EXAM: 03/11/2021 COMPARISON: 07/08/2020 HISTORY: Short of breath TECHNIQUE: Single view FINDINGS: Heart and mediastinum are normal. Lungs are clear. Diaphragm is normal. Bony thorax is inta ct. IMPRESSION: Normal chest. There is clearing of the pulmonary infiltrates compared to old exam. There is clearing of the left upper lobe nodule.
[2021-03-11 16:51] LABS: Appearance,Urine Clear (Clear); Bilirubin,Urine Negative (Negative); Blood,Urine Negative (Negative); Color,Urine Yellow; Glucose,Urine (UA) 4+ (Negative); Ketones,Urine Negative (Negative); Leukocyte Esterase,Urine Negative (Negative); Nitrite,Urine Negative (Negative); Protein,Urine Negative (Negative); Specific Gravity,Urine 1.016 (1.001-1.035); Urobilinogen,Urine <2.0 mg/dL (<2.0)
[2021-03-11] MEDS ORDERED: SODIUM CHLORIDE 0.9% 500 ML 500 ML IV STA (17:30)
[2021-03-11] MEDS ORDERED: NITROGLYCERIN SL TABS 0.4 MG TAB SUBLINGUAL PRN (18:18)
[2021-03-11] MEDS ORDERED: FUROSEMIDE 10 MG TAB PO PRN (18:18)
[2021-03-11 18:35] LABS: Glucose,Whole Blood 66 mg/dL (75-99)
[2021-03-11 20:42] LABS: Glucose,Whole Blood 143 mg/dL (75-99)
[2021-03-11] MEDS: PRIMIDONE 250 MG TAB PO SCH (21:05)
[2021-03-11] MEDS: PANTOPRAZOLE 40 MG TABLET PO SCH (21:05)
[2021-03-11] MEDS: OXcarbazepine 300 MG TAB PO SCH (21:05)
[2021-03-11] MEDS: SODIUM CHLORIDE 0.9% 1,000 ML IV SCH (21:05)
[2021-03-12 06:21] LABS: Glucose,Whole Blood 139 mg/dL (75-99)
[2021-03-12] MEDS: SODIUM CHLORIDE 0.9% 1,000 ML IV SCH ×2 (06:27→19:30)
[2021-03-12] MEDS: INSULIN ASPART (NovoLOG) 100 UNIT/ML VIAL SQ SCH ×4 (06:27→20:49)
[2021-03-12] MEDS: PRASUGREL 10 MG TAB PO SCH (07:53)
[2021-03-12] MEDS: OXcarbazepine 300 MG TAB PO SCH ×2 (07:53→21:20)
[2021-03-12] MEDS: ASPIRIN 325 MG TAB PO SCH (07:53)
[2021-03-12 09:16] LABS: Chol/HDL Ratio 5.98; LDL Cholesterol,Calculated 138.2 mg/dL (0.0-131.0); VLDL Calculation 65.8 mg/dL (5.00-40.00)
--- NOTE | 2021-03-12 11:35 | US ---
EXAMINATION TYPE: US carotid duplex BILAT DATE OF EXAM: 03/12/2021 COMPARISON: US dated 08/01/2017 CLINICAL HISTORY: cva. EXAM MEASUREMENTS: RIGHT: Peak Systolic Velocity (PSV) cm/sec ----- Right CCA: 86.0 ----- Right ICA: 78.1 ----- Right ECA: 113.8 ICA/CCA ratio: 0.9 RIGHT: End Diastole cm/sec ----- Right CCA: 11.6 ----- Right ICA: 12.9 ----- Right ECA: 0.0 LEFT: Peak Systolic Velocity (PSV) cm/sec ----- Left CCA: 86.7 ----- Left ICA: 173.2 ----- Left ECA: 81.2 ICA/CCA ratio: 2.0 LEFT: End Diastole cm/sec ----- Left CCA: 15.3 ----- Left ICA: 37.2 ----- Left ECA: 7.6 VERTEBRALS (direction of flow): Right Vertebral: Antegrade Left Vertebral: Antegrade Rhythm: Normal Shadowing plaque at left bulb with elevated velocities. IMPRESSION: 1. No significant right internal carotid artery or common carotid artery stenosis. 2. Findings consistent with a moderate 50-69% stenosis of the proximal left internal carotid artery s econdary to calcified plaque formation. Criteria for Assigning % of Stenosis / Diameter reduction (Estimation based on the indirect measurements of the internal carotid artery velocities (ICA PSV). 1. Normal (no stenosis)=ICA PSV < 125 cm/s: ratio < 2.0: ICA EDV<40 cm/s. 2. Less than 50% stenosis=ICA PSV < 125 cm/s: ratio < 2.0: ICA EDV<40 cm/s. 3. 50 to 69% stenosis=ICA PSV of 125 to 230 cm/s: ration 2.0 ? 4.0: ICA EDV 40-100 cm/s. 4. Greater than 70% stenosis to near occlusion= ICA PSV > 230 cm/s: ratio > 4.0: ICA EDV > 100 cm/s. 5. Near occlusion= ICA PSV velocities may be low or undetectable: variable ratio and ICA EDV. 6. Total occlusion=unable to detect flow.
[2021-03-12 11:40] LABS: Glucose,Whole Blood 155 mg/dL (75-99)
[2021-03-12] MEDS: THIAMINE 100 MG TAB PO SCH (12:12)
[2021-03-12] MEDS: MULTIVITAMINS, THERA 1 EACH TAB PO SCH (12:12)
[2021-03-12] MEDS: PRIMIDONE 250 MG TAB PO SCH ×2 (15:01→21:21)
[2021-03-12] MEDS ORDERED: INSULIN LISPRO (For Pump) 100 UNIT/ML VIAL SQ-PUMP SCH (16:00)
--- NOTE | 2021-03-12 16:01 | P.CNNES ---
History of Present Illness Consult date: 03/12/21 Requesting physician: Clay Weeks Reason for Consult: History of CVA, left leg weakness History of Present Illness: This is a tele-neurology consultation performed today on 03/12/2021. Tele- neurology time spent from 10 AM to 10:35 AM. Patient is a 70-year-old male came to the hospital by ambulance yesterday at 2:52 PM. Patient states that he was sitting in the chair, had an urge to get up to go to the bathroom and he fell because his left leg gave out. He thinks he may have passed out for a second. He denies any dizziness, lightheadedness or any spinning sensation before the fall. He did lose control of bowels and bladder. No diarrhea. As per EMS flow sheet, when they arrived, patient was laying on the floor with his head on the bottom part of end table. Patient was alert and oriented 4 with intact airway. Pupils were equal and reacting. Weakness is noted to the left arm and left leg. It was reported patient had history of stroke, heart attack and diabetes. He was getting up from the couch when he fell because of his leg weakness and hit his head. mentioned that he lost consciousness for about 10 seconds. Patient denied any head neck or back pain. No nausea vomiting dizziness. Patient's blood test shows blood pressure 107/69, pulse rate 60, saturation 96%, blood sugar 102. Vital signs on arrival blood pressure 103/68, pulse is 62, temperature 98.7. Blood test shows normal CBC, electrolytes, BUN is 24, creatinine 1.87. Hepatic panel normal. Troponin negative. UA is negative and rice virus PCR negative. Computed tomography scan of head showed cerebral atrophy, no acute intracranial abnormality. CT of the cervical spine showed cervical multilevel spondylotic changes. No fracture. X-ray of the humerus showed no fracture. Chest x-ray normal chest. EKG with normal sinus rhythm. Patient states that he is noticing left leg weakness since he has been in the [facility]. He could not lift his left leg off the bed while in the ER. He denies any weakness of the arms, no slurred speech, no facial droop or visual problems. He uses walker at home for last 2 years, as he cannot balance himself. She follows up with Dr. Dozier office. Patient does take aspirin 81 mg, Lipitor 80 mg, Demadex, Lexapro 10 mg, Requip 0.25 mg twice a day, Effient 10 mg daily, Imdur, amlodipine 5 mg, fenofibrate 145 mg daily at bedtime, primidone 125 mg in the morning and 250 mg at bedtime, Trileptal 300 mg twice a day, metoprolol 25 mg twice a day Protonix, donepezil 10 mg, insulin, gabapentin 400 mg twice a day, vitamin D, folic acid, Namenda 10 mg twice a day, multivitamin, Farsiga. Patient has been seen by Dr. Callejas with neurology on 01/06/2019 for syncopal spell with elements concerning for complex partial seizure, vascular dementia, right lower extremity numbness status post lumbar surgery. Patient had an EEG done on 01/07/2019, which was normal. On review of records, it appears patient had an acute infarct involving the inferior medial right cerebellar hemisphere with minimal extension to the right inferior vermis noted, on MRI of brain from 04/20/2016. There is mild possible hydrocephalus. Patient states he has history of 4 strokes in the past. He states the first one involved the right side, that occurred "long time ago". His second one affected his left side. He states that he uses walker at home for last 2 years, as he cannot balance self. Review of Systems As above in detail. Denies any chest pain shortness of breath wheezing or cough. Denies any abdominal pain, nausea vomiting diarrhea. She did have a blackout and loss control of bowels and bladder. It was a formed stool. All other review of systems reviewed and noncontributory. Past Medical History Past Medical History: Coronary Artery Disease (CAD), Cancer, Chest Pain / Angina, CVA/TIA, Dementia, Diabetes Mellitus, Hyperlipidemia, Hypertension, Myocardial Infarction ([place]), Osteoarthritis ([place]), Pneumonia, Renal Disease, Skin Disorder Additional Past Medical History / Comment(s): SEE DR BLEVINS'S NOTE FOR CARDIAC HX. HX OF SYNCOPAL EPISODES OF UNKNOWN CAUSE. Diabetes mellitus currently on insulin pump. SHORT TERM MEMORY LOSS. 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 COLONOCOSPY, LUMBAR EPIDURAL INJ, total 4 cardiac stents (2010 1 stent and 2014 3 stents),juventino cataracts/lens implants, colonoscopy, gold seed implants for prostate cancer. back surgery (11/2018) Past Anesthesia/Blood Transfusion Reactions: Motion Sickness Additional Past Anesthesia/Blood Transfusion Reaction / Comment(s): CLAUSTROPHOBIC Date of Last Stent Placement:: 2014 Past Psychological History: No Psychological Hx Reported, Depression Additional Psychological History / Comment(s): PT LIVES AT HOME WITH HIS KWAN IS INDEPENDANT WITH HIS OWN CARE. USED TO WORK FOR [employer]. SHORT TERM MEMORY LOSS. USES A WALKER. Smoking Status: Former smoker Past Alcohol Use History: None Reported Additional Past Alcohol Use History / Comment(s): STARTED SMOKING AROUND AGE 48(1998) SMOKE A PIPE OR CIGARS 2-3 times a week but quit 04/2016. Past Drug Use History: None Reported - Past Family History Father Family Medical History: Cancer Additional Family Medical History / Comment(s): FATHER HAD BLADDER CANCER AND OF THIS IN HIS 40'S Mother Family Medical History: Cancer, Dementia Additional Family Medical History / Comment(s): UTERINE CANCER. Mother of dementia at the age of 89yrs. Medications and Allergies Home Medications Medication Instructions Recorded Confirmed Type Aspirin 81 mg PO DAILY 01/12/15 03/11/21 History Atorvastatin Calcium [Lipitor] 80 mg PO HS 07/30/17 03/11/21 History Torsemide [Demadex] 5 mg PO DAILY PRN 02/20/18 03/11/21 History Magnesium Oxide 400 mg PO DAILY 12/01/18 03/11/21 History Escitalopram [Lexapro] 10 mg PO DAILY 01/06/19 03/11/21 History Thiamine [Vitamin B-1] 100 mg PO DAILY@1200 01/06/19 03/11/21 History rOPINIRole HCL [Requip] 0.25 mg PO BID 01/06/19 03/11/21 History Isosorbide Mononitrate ER [Imdur] 30 mg PO DAILY 04/02/19 03/11/21 History Prasugrel [Effient] 10 mg PO DAILY 04/02/19 03/11/21 History Fenofibrate Nanocrystallized 145 mg PO HS 06/13/20 03/11/21 History [Fenofibrate] Nitroglycerin Sl Tabs [Nitrostat] 0.4 mg SL Q5M PRN 06/13/20 03/11/21 History amLODIPine [Norvasc] 5 mg PO DAILY 06/13/20 03/11/21 History Ascorbic Acid [Vitamin C] 1,000 mg PO DAILY@1200 07/03/20 03/11/21 History Donepezil [Aricept] 10 mg PO HS@2100 07/03/20 03/11/21 History Metoprolol Tartrate [Lopressor] 25 mg PO BID 07/03/20 03/11/21 History OXcarbazepine [Trileptal] 300 mg PO BID 07/03/20 03/11/21 History Pantoprazole [Protonix] 40 mg PO HS 07/03/20 03/11/21 History Primidone [Mysoline] 125 mg PO DAILY@1400 07/03/20 03/11/21 History Primidone [Mysoline] 250 mg PO HS@2100 07/03/20 03/11/21 History Gabapentin [Neurontin] 400 mg PO BID 01/24/21 03/11/21 History INSULIN LISPRO (For Pump) [humaLOG 0.01 units SQ-PUMP CONTINUOUS 01/24/21 03/11/21 History (For Pump)] Dapagliflozin Propanediol [Farxiga] 5 mg PO DAILY 03/11/21 03/11/21 History Ergocalciferol [Vitamin D2 (1250 1,250 mcg PO Q30D 03/11/21 03/11/21 History Mcg = 71056 Iu)] Folic Acid 1 mg PO DAILY@1200 03/11/21 03/11/21 History Memantine [Namenda] 10 mg PO BID 03/11/21 03/11/21 History Multivitamins, Thera [Multivitamin 1 tab PO DAILY@1200 03/11/21 03/11/21 History (formulary)] Allergies Allergy/AdvReac Type Severity Reaction Status Date / Time No Known Allergies Allergy Verified 03/11/21 15:03 Physical Examination - Vital Signs Vital Signs: Vital Signs Temp Pulse Pulse Resp BP BP Pulse Ox 03/12/21 07:50 98.4 F 91 18 168/85 94 L 03/12/21 04:00 97.7 F 76 18 151/75 96 03/12/21 02:00 67 16 03/12/21 00:00 98.1 F 68 17 118/69 93 L 03/11/21 20:00 97.7 F 66 18 123/68 94 L 03/11/21 14:54 98.7 F 62 18 103/68 96 Intake and Output 03/11/21 03/12/21 03/12/21 22:59 06:59 14:59 Intake Total 600 240 Balance 600 240 Intake: Intake, IV Titration 600 Amount Sodium Chloride 0.9% 1, 600 000 ml @ 100 mls/hr IV . Q10H [facility] Rx#:[id number] Oral 240 Other: Voiding Method Diaper Diaper Incontinent Incontinent # Voids 3 Weight 116.12 kg Patient is an elderly male, in no acute distress. Patient is alert awake oriented to time place and person. Speech and language functions are normal. Patient can name all objects, repetition is intact. No aphasia or dysarthria. Attention, concentration and fund of knowledge is adequate. Detailed cognitive function testing deferred. On cranial examination, pupils are round and reacting to light, visual irizarry are full on confrontation, extraocular muscles are intact with mild nystagmus on end gaze bilaterally. Patient has slightly droopy right corner of the mouth. His tongue protrudes to the midline. Palatal elevation and sensation normal, hearing and shoulder shrug normal, facial sensation normal. On muscle strength testing, there is no pronator drift and the strength is normal in arms distally and proximally. In the lower limbs, left leg is much weaker. Hip flexion 3+ right, 1-2 on the left hip flexion. Ankle is 5 on the right, 2 left. Deep tendon reflexes are symmetric, 1 in the upper limbs, 1 in the lower limbs and plantars downgoing. Sensory to touch is equal with no neglect. Cerebellar function showed mild shakiness for [id number] testing on the left. No ataxia on the right side. Patient cannot perform [id number] testing with his left leg. Normal with the right leg. Tone and bulk of muscles normal. Gait not checked, as left leg is very weak in is fall risk. On general examination, there is no carotid bruit or murmur, S1-S2 audible. Abdomen is soft nontender. Chest is clear. Mild peripheral edema present. Results - Laboratory Findings CBC and BMP: 03/11/21 15:48 03/11/21 15:48 Abnormal Lab Findings: Abnormal Labs 03/11/21 03/11/21 03/11/21 15:48 15:48 15:48 Lymphocytes # 0.6 L BUN 24 H Creatinine 1.87 H POC Glucose (mg/dL) Triglycerides 329.0 H Cholesterol 245 H LDL Cholesterol, Calc 138.2 H VLDL Cholesterol, Calc 65.80 H Urine Glucose (UA) 03/11/21 03/11/21 03/11/21 16:48 18:33 20:40 Lymphocytes # BUN Creatinine POC Glucose (mg/dL) 66 L 143 H Triglycerides Cholesterol LDL Cholesterol, Calc VLDL Cholesterol, Calc Urine Glucose (UA) 4+ H 03/12/21 06:19 Lymphocytes # BUN Creatinine POC Glucose (mg/dL) 139 H Triglycerides Cholesterol LDL Cholesterol, Calc VLDL Cholesterol, Calc Urine Glucose (UA) Assessment and Plan Assessment: * Possible CVA, with acute onset of left leg weakness. Patient has very minimal left facial asymmetry. * History of right cerebellar stroke April 2016. * History of possible seizure disorder, on oxcarbazepine. * CAD * Diabetes * Hypertension * Hyperlipidemia * Osteoarthritis * Mild renal insufficiency Plan: * Patient probably has presented with an acute weakness of left leg, rule out acute stroke. We will check MRI of the brain to confirm stroke. * 2-D echo with bubble study, rule out PFO. * Carotid Doppler to rule out carotid stenosis. * Lipid panel with cholesterol 245, LDL 138.2, HDL 41 and triglycerides 329. Patient is already on high dose Lipitor 80 mg daily. Lipids are not controlled. Consider switching to newrr agents. * Continue aspirin, Effient 10 mg daily. * Dr. Edin Maldonado Will resume neurology service from the morning. Time with Patient: Greater than 30
[2021-03-12 16:23] LABS: Glucose,Whole Blood 155 mg/dL (75-99)
--- NOTE | 2021-03-12 18:22 | HP ---
HISTORY AND PHYSICAL I am covering for Dr. Gold. DATE OF SERVICE: 03/12/2021. CHIEF COMPLAINTS: Fall and weakness. HISTORY OF PRESENT ILLNESS: This 70-year-old gentleman with a past medical history of multiple medical problems, including CAD, history of CVA, TIA, dementia, diabetes mellitus, hypertension, hyperlipidemia, history of myocardial infarction, history of DJD, history of back surgery, being followed by Dr. Gold in the outpatient setting, had a fall a few days ago. The patient hit the back of his head. Currently the patient is complaining of weakness. The family also noted left-sided weakness, and the patient came to [facility] and was admitted for further evaluation and treatment. The creatinine was found to be around 1.87. Cholesterol was 245. Neural workup is underway, including a neurology consultation. Carotid Doppler was done which showed moderate 50% to 69% stenosis of the proximal left internal carotid artery and possible plaque formation. Otherwise, CT scan of the brain which I reviewed personally showed cerebral atrophy and cervical multilevel spondylotic changes. There is no history of any fever, rigor or chills at this time. PAST MEDICAL HISTORY: History of CAD, history of chest pain, CVA, TIA, dementia, diabetes mellitus, hypertension, hyperlipidemia. MEDICATIONS: Home medications are Requip, Norvasc, Demadex, vitamin B1, Mysoline, Effient, Protonix, Trileptal, Nitrostat, multivitamin, Lopressor, Namenda, magnesium oxide, Imdur, Neurontin, fenofibrate, Lexapro, vitamin D2, Aricept, Farxiga, Lipitor, aspirin, vitamin C. Doses are reviewed. ALLERGIES: NONE. FAMILY HISTORY: History of bladder cancer in the family. SOCIAL HISTORY: Previous history of smoking. No current smoking or alcohol intake. REVIEW OF SYSTEMS: ENT: Diminished hearing. Diminished vision. CARDIOVASCULAR SYSTEM: No angina, palpitations. RESPIRATORY SYSTEM: No cough, hemoptysis. GI: No nausea, vomiting, diarrhea. : No dysuria. NERVOUS SYSTEM: As mentioned earlier. ALLERGY/IMMUNOLOGY: No asthma or hay fever. MUSCULOSKELETAL: As mentioned earlier. HEMATOLOGY/ONCOLOGY: No history of anemia. ENDOCRINE: As mentioned earlier. CONSTITUTIONAL: As mentioned earlier. DERMATOLOGY: Negative. RHEUMATOLOGY: Negative. PSYCHIATRY: As mentioned earlier. PHYSICAL EXAMINATION: Patient alert and oriented x2. Pulse is 81, blood pressure 130/70, respirations 16, temperature 98.2, pulse ox 92% on room air. HEENT: Conjunctivae normal. Oral mucosa moist. NECK: No jugular venous distention. No carotid bruit. No lymph node enlargement. CARDIOVASCULAR: S1, S2 muffled. RESPIRATION: Breath sounds diminished at the bases. A few scattered rhonchi and crackles. ABDOMEN: Soft, obese, non-tender. No mass palpable. LEGS: No edema. No swelling. NERVOUS SYSTEM: Higher functions as mentioned earlier. Cranial nerves 2 through 12 grossly intact. Otherwise, minimal weakness of the left side. Reflexes are diminished. Gait not tested. SKIN: No ulcer, rash, bleeding. JOINTS: No active deforming arthropathy. LYMPHATICS: No lymph node palpable in neck, axillae or groin. LABS: CBC within normal limits. Lymphocytes 0.6 and creatinine is 1.87. Glucose noted and LDL noted. ASSESSMENT: 1. Weakness on the left side, possible acute stroke. 2. Gait dysfunction. 3. History of recent falls. 4. Increased creatinine, possibly chronic kidney disease, stage 3. 5. Mild lymphopenia. 6. Hyperlipidemia. 7. History of coronary artery disease. 8. History of cerebrovascular accident, transient ischemic attack. 9. Dementia. 10.Diabetes mellitus, type 2. 11.Hypertension. 12.Hyperlipidemia. 13.History of myocardial infarction. 14.History of pneumonia. 15.History of syncopal episodes of unknown cause. 16.History of degenerative joint disease. 17.History of back surgery. 18.History of coronary artery disease, stent. 19.Depression. 20.Obesity with body mass index of 36.7. 21.FULL CODE. RECOMMENDATIONS AND DISCUSSION: In this 70-year-old gentleman who presented with multiple complex medical issues, we will monitor the patient closely, continue the current medications, continue symptomatic treatment. Antiplatelet agents. Otherwise complete neurovascular workup, neurology consultation. PT/OT evaluation. The prognosis is guarded because of multiple complex medical issues. Further recommendations to follow. See orders for further details. DVT prophylaxis. Home medications will be continued when they are reconciled. A copy of this dictation is being forwarded to Dr. Gold, who is the primary physician. Dr. Gold will follow tomorrow. MMODL / IJN: [id number] / [facility]
[2021-03-12 20:31] LABS: Glucose,Whole Blood 159 mg/dL (75-99)
[2021-03-12 20:35] LABS: Glucose,Whole Blood 173 mg/dL (75-99)
[2021-03-12] MEDS: ATORVASTATIN 80 MG TAB PO SCH (20:48)
[2021-03-12] MEDS: HEPARIN SODIUM,PORCINE/PF 5,000 UNIT/0.5 ML SYRINGE SQ SCH (20:48)
[2021-03-12] MEDS: MEMANTINE 10 MG TAB PO SCH (20:48)
[2021-03-12] MEDS: METOPROLOL TARTRATE 25 MG TAB PO SCH (20:48)
[2021-03-12] MEDS: FENOFIBRATE 160 MG TAB PO SCH (20:48)
[2021-03-12] MEDS: GABAPENTIN 400 MG CAP PO SCH (20:48)
[2021-03-12] MEDS: PANTOPRAZOLE 40 MG TABLET PO SCH (20:48)
[2021-03-12] MEDS: DONEPEZIL 10 MG TAB PO SCH (20:48)
[2021-03-13] MEDS: SODIUM CHLORIDE 0.9% 1,000 ML IV SCH ×2 (00:15→20:19)
[2021-03-13 06:18] LABS: Glucose,Whole Blood 109 mg/dL (75-99)
[2021-03-13] MEDS: INSULIN ASPART (NovoLOG) 100 UNIT/ML VIAL SQ SCH ×4 (06:29→20:20)
[2021-03-13 07:52] LABS: Basophils % (A) 1 %; Eosinophils # (A) 0.1 k/uL (0-0.7); Eosinophils % (A) 2 %; HCT 40.4 % (39.0-53.0); HGB 13.8 gm/dL (13.0-17.5); Lymphocytes # (A) 0.5 k/uL (1.0-4.8); Lymphocytes % (A) 11 %; MCH 30.1 pg (25.0-35.0); MCHC 34.1 g/dL (31.0-37.0); MCV 88.2 fL (80.0-100.0); Monocytes # (A) 0.3 k/uL (0-1.0); Monocytes % (A) 8 %; Neutrophils # (A) 3.4 k/uL (1.3-7.7); Neutrophils % (A) 76 %; Platelet Count 241 k/uL (150-450); RBC 4.59 m/uL (4.30-5.90); WBC 4.5 k/uL (3.8-10.6)
[2021-03-13 07:59] LABS: Calcium 9.4 mg/dL (8.4-10.2); Potassium 4.4 mmol/L (3.5-5.1)
[2021-03-13] MEDS: amLODIPine 5 MG TAB PO SCH (09:24)
[2021-03-13] MEDS: ASPIRIN 325 MG TAB PO SCH (09:24)
[2021-03-13] MEDS: ESCITALOPRAM 10 MG TAB PO SCH (09:24)
[2021-03-13] MEDS: GABAPENTIN 400 MG CAP PO SCH ×2 (09:24→20:21)
[2021-03-13] MEDS: MEMANTINE 10 MG TAB PO SCH ×2 (09:24→20:22)
[2021-03-13] MEDS: METOPROLOL TARTRATE 25 MG TAB PO SCH ×2 (09:24→20:22)
[2021-03-13] MEDS: MAGNESIUM OXIDE 400 MG TAB PO SCH (09:24)
[2021-03-13] MEDS: PRASUGREL 10 MG TAB PO SCH (09:24)
[2021-03-13] MEDS: ISOSORBIDE MONONITRATE ER 30 MG TAB.ER.24H PO SCH (09:24)
[2021-03-13] MEDS: OXcarbazepine 300 MG TAB PO SCH ×2 (09:25→20:22)
[2021-03-13] MEDS: HEPARIN SODIUM,PORCINE/PF 5,000 UNIT/0.5 ML SYRINGE SQ SCH ×2 (09:25→20:21)
[2021-03-13 11:21] LABS: Glucose,Whole Blood 164 mg/dL (75-99)
[2021-03-13 12:04] LABS: Glucose,Whole Blood 153 mg/dL (75-99)
--- NOTE | 2021-03-13 12:05 | P.GSCN ---
History of Present Illness Consult date: 03/13/21 Reason for Consult: carotid stenosis Requesting physician: Edin Maldonado History of present illness: This is a 70-year-old male who presented to the emergency department yesterday with complaints of left lower extremity weakness causing a fall. Has a past medical history of coronary artery disease, syncope, CVA with residual left- sided weakness, dementia, diabetes mellitus, hyperlipidemia, hypertension, and chronic kidney disease. Patient states he's had for previous strokes with unknown cause. States last stroke was in 2016. He is currently on aspirin and Effient. Patient states that Dr. Dr. Pickens has his rawhide trimmer and has been following his carotid arteries. He has also followed up with neurology in the past regarding syncope and fall. According to neurology is no history of syncopal spells were concerning for complex partial seizure, vascular dementia, and right lower extremity numbness was status post lumbar surgery. Patient states he went to get up after sitting on the couch watching television and his left leg gave out and he fell he thinks he may have passed out, he denied any dizziness or visual changes prior to his fall. He did have loss of control of his bowels and bladder. When EMS arrived there was documented left upper and lower extremity weakness, patient states the weakness is greater than it has been in the past. His left lower extremity still remains weak and he is unable to raise it off the bed. He does use a walker at home. He currently denies any dizziness, blurred vision, visual changes, speech deficits difficulty swallowing, right-sided weakness, does state that left upper extremity weakness has improved however still has left lower extremity weakness. He denies any chest pain, shortness of breath, fevers, chills, abdominal pain, nausea, or vomiting. The patient underwent a carotid ultrasound that showed moderate stenosis of the proximal left ICA, therefore vascular surgery was consulted. CT of brain and spine states no acute intracranial abnormality. Cervical multilevel spondylotic changes. No fracture. Brain and cervical spine no hal nge compared to old exam. Carotid duplex: Right ICA PSV 78, ICA/CCA ratio 0.9. Left ICA PSV 173, ICA/CCA ratio 2.0. Impression states no significant right ICA or common carotid artery stenosis, findings consistent with a moderate 50-69% stenosis of the proximal left internal carotid artery secondary to calcified plaque formation. Review of Systems A 14 point review of systems was completed all pertinent positives and negatives as stated in the HPI. Past Medical History Past Medical History: Coronary Artery Disease (CAD), Cancer, Chest Pain / Angina, CVA/TIA, Dementia, Diabetes Mellitus, Hyperlipidemia, Hypertension, Myocardial Infarction ([place]), Osteoarthritis (OA), Pneumonia, Renal Disease, Skin Disorder Additional Past Medical History / Comment(s): SEE DR BLEVINS'S NOTE FOR CARDIAC HX. HX OF SYNCOPAL EPISODES OF UNKNOWN CAUSE. Diabetes mellitus currently on insulin pump. SHORT TERM MEMORY LOSS. seizure disorder, peripheral neuropathy, prostate cancer treated by radiation therapy, CVA back in April 2016 with right-sided weakness and facial droop, chronic back pain, L3 L4 L5 and S1 l umbosacral disease/fractures, nephrolithiasis, chronic renal failure, hypertension, hyperlipidemia, coronary artery disease Last Myocardial Infarction Date:: 2014 History of Any Multi-Drug Resistant Organisms: None Reported Past Surgical History: Back Surgery, Heart Catheterization With Stent Additional Past Surgical History / Comment(s): COMPETENT TO SIGN SURGICAL CONSENT. COLONOCOSPY, LUMBAR EPIDURAL INJ, total 4 cardiac stents (2010 1 stent and 2014 3 stents),juventino cataracts/lens implants, colonoscopy, gold seed implants for prostate cancer. back surgery (11/2018) Past Anesthesia/Blood Transfusion Reactions: Motion Sickness Additional Past Anesthesia/Blood Transfusion Reaction / Comm: CLAUSTROPHOBIC Date of Last Stent Placement:: 2014 Past Psychological History: No Psychological Hx Reported, Depression Additional Psychological History / Comment(s): PT LIVES AT HOME WITH HIS KWAN IS INDEPENDANT WITH HIS OWN CARE. USED TO WORK FOR better. [employer]. SHORT TERM MEMORY LOSS. USES A WALKER. Smoking Status: Former smoker Past Alcohol Use History: None Reported Additional Past Alcohol Use History / Comment(s): STARTED SMOKING AROUND AGE 48(1998) SMOKE A PIPE OR CIGARS 2-3 times a week but quit 04/2016. Past Drug Use History: None Reported - Past Family History Father Family Medical History: Cancer Additional Family Medical History / Comment(s): FATHER HAD BLADDER CANCER AND OF THIS IN HIS 40'S Mother Family Medical History: Cancer, Dementia Additional Family Medical History / Comment(s): UTERINE CANCER. Mother of dementia at the age of 89yrs. Medications and Allergies Home Medications Medication Instructions Recorded Confirmed Type Aspirin 81 mg PO DAILY 01/12/15 03/11/21 History Atorvastatin Calcium [Lipitor] 80 mg PO HS 07/30/17 03/11/21 History Torsemide [Demadex] 5 mg PO DAILY PRN 02/20/18 03/11/21 History Magnesium Oxide 400 mg PO DAILY 12/01/18 03/11/21 History Escitalopram [Lexapro] 10 mg PO DAILY 01/06/19 03/11/21 History Thiamine [Vitamin B-1] 100 mg PO DAILY@1200 01/06/19 03/11/21 History rOPINIRole HCL [Requip] 0.25 mg PO BID 01/06/19 03/11/21 History Isosorbide Mononitrate ER [Imdur] 30 mg PO DAILY 04/02/19 03/11/21 History Prasugrel [Effient] 10 mg PO DAILY 04/02/19 03/11/21 History Fenofibrate Nanocrystallized 145 mg PO HS 06/13/20 03/11/21 History [Fenofibrate] Nitroglycerin Sl Tabs [Nitrostat] 0.4 mg SL Q5M PRN 06/13/20 03/11/21 History amLODIPine [Norvasc] 5 mg PO DAILY 06/13/20 03/11/21 History Ascorbic Acid [Vitamin C] 1,000 mg PO DAILY@1200 07/03/20 03/11/21 History Donepezil [Aricept] 10 mg PO HS@2100 07/03/20 03/11/21 History Metoprolol Tartrate [Lopressor] 25 mg PO BID 07/03/20 03/11/21 History OXcarbazepine [Trileptal] 300 mg PO BID 07/03/20 03/11/21 History Pantoprazole [Protonix] 40 mg PO HS 07/03/20 03/11/21 History Primidone [Mysoline] 125 mg PO DAILY@1400 07/03/20 03/11/21 History Primidone [Mysoline] 250 mg PO HS@2100 07/03/20 03/11/21 History Gabapentin [Neurontin] 400 mg PO BID 01/24/21 03/11/21 History INSULIN LISPRO (For Pump) [humaLOG 0.01 units SQ-PUMP CONTINUOUS 01/24/21 03/11/21 History (For Pump)] Dapagliflozin Propanediol [Farxiga] 5 mg PO DAILY 03/11/21 03/11/21 History Ergocalciferol [Vitamin D2 (1250 1,250 mcg PO Q30D 03/11/21 03/11/21 History Mcg = 01251 Iu)] Folic Acid 1 mg PO DAILY@1200 03/11/21 03/11/21 History Memantine [Namenda] 10 mg PO BID 03/11/21 03/11/21 History Multivitamins, Thera [Multivitamin 1 tab PO DAILY@1200 03/11/21 03/11/21 History (formulary)] Allergies Allergy/AdvReac Type Severity Reaction Status Date / Time No Known Allergies Allergy Verified 03/11/21 15:03 Surgical - Exam Vital Signs Temp Pulse Resp BP Pulse Ox 98.7 F 62 18 103/68 96 03/11/21 14:54 03/11/21 14:54 03/11/21 14:54 03/11/21 14:54 03/11/21 14:54 General appearance: The patient is alert, oriented, appears in no acute distress. HET: Head is normocephalic and atraumatic. Pupils are equal and reactive. Neck: Supple without lymphadenopathy. Trachea midline. No audible carotid bruit Heart: S1 S2. Regular rate and rhythm. Lungs: Clear to auscultation. Abdomen: Soft, nontender, nondistended. Extremities: Normal skin color and turgor. No cyanosis, rash, ulceration, clubbing, or edema. Neurological: Patient is alert and oriented 3. Mild facial asymmetry, tongue mildly deviated to the right. Speech is fluent, patient answers questions appropriately and follows commands. Right upper and lower extremities strength intact 5/5. Left upper extremity with mild weakness, 4/5. Left lower extremity with significant weakness, unable to lift leg off the bed. Results - Labs 03/13/21 07:23 03/13/21 07:23 Abnormal Lab Results - Last 24 Hours (Table) 03/11/21 03/12/21 03/12/21 Range/Units 15:48 11:38 16:21 Lymphocytes # (1.0-4.8) k/uL BUN (9-20) mg/dL Creatinine (0.66-1.25) mg/dL Glucose (74-99) mg/dL POC Glucose (mg/dL) 155 H 155 H (75-99) mg/dL Hemoglobin A1c 6.7 H (4.0-6.0) % 03/12/21 03/12/21 03/13/21 Range/Units 20:29 20:33 06:17 Lymphocytes # (1.0-4.8) k/uL BUN (9-20) mg/dL Creatinine (0.66-1.25) mg/dL Glucose (74-99) mg/dL POC Glucose (mg/dL) 159 H 173 H 109 H (75-99) mg/dL Hemoglobin A1c (4.0-6.0) % 03/13/21 03/13/21 Range/Units 07:23 07:23 Lymphocytes # 0.5 L (1.0-4.8) k/uL BUN 21 H (9-20) mg/dL Creatinine 1.69 H (0.66-1.25) mg/dL Glucose 125 H (74-99) mg/dL POC Glucose (mg/dL) (75-99) mg/dL Hemoglobin A1c (4.0-6.0) % Diabetes panel 03/11/21 03/13/21 Range/Units 15:48 07:23 Sodium 138 (137-145) mmol/L Potassium 4.4 (3.5-5.1) mmol/L Chloride 107 (98-107) mmol/L Carbon Dioxide 23 (22-30) mmol/L BUN 21 H (9-20) mg/dL Creatinine 1.69 H (0.66-1.25) mg/dL Glucose 125 H (74-99) mg/dL Hemoglobin A1c 6.7 H (4.0-6.0) % Calcium 9.4 (8.4-10.2) mg/dL Calcium panel 03/13/21 Range/Units 07:23 Calcium 9.4 (8.4-10.2) mg/dL Pituitary panel 03/13/21 Range/Units 07:23 Sodium 138 (137-145) mmol/L Potassium 4.4 (3.5-5.1) mmol/L Chloride 107 (98-107) mmol/L Carbon Dioxide 23 (22-30) mmol/L BUN 21 H (9-20) mg/dL Creatinine 1.69 H (0.66-1.25) mg/dL Glucose 125 H (74-99) mg/dL Calcium 9.4 (8.4-10.2) mg/dL Adrenal panel 03/13/21 Range/Units 07:23 Sodium 138 (137-145) mmol/L Potassium 4.4 (3.5-5.1) mmol/L Chloride 107 (98-107) mmol/L Carbon Dioxide 23 (22-30) mmol/L BUN 21 H (9-20) mg/dL Creatinine 1.69 H (0.66-1.25) mg/dL Glucose 125 H (74-99) mg/dL Calcium 9.4 (8.4-10.2) mg/dL - Imaging Comments: CT of brain and spine states no acute intracranial abnormality. Cervical multilevel spondylotic changes. No fracture. Brain and cervical spine no change compared to old exam. Carotid duplex: Right ICA PSV 78, ICA/CCA ratio 0.9. Left ICA PSV 173, ICA/CCA ratio 2.0. Impression states no significant right ICA or common carotid artery stenosis, findings consistent with a moderate 50-69% stenosis of the proximal left internal carotid artery secondary to calcified plaque formation. Assessment and Plan Assessment: 1. Left ICA stenosis, 50-69% per carotid duplex 2. Left-sided weakness 3. Previous history of CVA with residual left-sided weakness 4. History of coronary artery disease status post stenting 5. History of diabetes mellitus 6. History of chronic kidney disease 7. History of hypertension and hyperlipidemia Plan: 1. Continue aspirin, statin, and Effient 2. Carotid duplex reviewed 3. Await MRI results 4. Await recommendations from neurology 5. Monitor kidney function, consider CT angiogram of head and neck 6. Further recommendations to follow Thank you for this consultation, and allowing us take part in the plan of care of your patient during his hospital stay. The impression and plan of care has been dictated as directed. Dr. Hernandez I performed a history and examination of this patient, discussed the same with the dictator. I agree with the dictator's note ,documented as a scribe. Any additional findings or plans will be noted.
--- NOTE | 2021-03-13 12:06 | ECHOF ---
Referral Reason:CVA MEASUREMENTS -------- HEIGHT: 177.8 cm WEIGHT: 78.9 kg BP: 161/87 RVIDd: 3.4 cm (< 3.3) IVSd: 1.4 cm (0.6 - 1.1) LVIDd: 4.5 cm (3.9 - 5.3) LVPWd: 1.3 cm (0.6 - 1.1) IVSs: 1.8 cm LVIDs: 3.2 cm LVPWs: 1.7 cm LA Diam: 3.9 cm (2.7 - 3.8) Ao Diam: 3.3 cm (2.0 - 3.7) AV Cusp: 1.8 cm (1.5 - 2.6) MV EXCURSION: 18.395 mm (> 18.000) MV EF SLOPE: 63 mm/s (70 - 150) EPSS: 0.7 cm MV E Morgan: 1.14 m/s MV DecT: 226 ms MV A Morgan: 1.14 m/s MV E/A Ratio: 1.00 FINDINGS -------- Sinus rhythm. This was a technically adequate study. The left ventricular size is normal. There is moderate concentric left ventricular hypertrophy. O verall left ventricular systolic function is normal with, an EF between 60 - 65 %. The right ventricle is mildly enlarged. The left atrium is normal in size. The right atrium is normal in size. Contrast study was performed with 2 iv injections of 8 ccs of agitated normal saline, at rest, and wi th cough. Poor acustic respond not able to determine any shunt The aortic valve is trileaflet, and appears structurally normal. No aortic stenosis or regurgitation. The mitral valve is normal. The tricuspid valve appears structurally normal. Unable to estimate RVSP due to inadequate TR jet s pectral doppler profile. There is no pulmonic regurgitation present. The aortic root size is normal. Normal inferior vena cava with normal inspiratory collapse consistent with estimated right atrial pre ssure of 5 mmHg. There is no pericardial effusion. CONCLUSIONS -------- 1. The left ventricular size is normal. 2. There is moderate concentric left ventricular hypertrophy. 3. Overall left ventricular systolic function is normal with, an EF between 60 - 65 %. 4. The right ventricle is mildly enlarged. 5. Contrast study was performed with 2 iv injections of 8 ccs of agitated normal saline, at rest, and with cough. 6. Poor acustic respond not able to determine any shunt 7. The aortic valve is trileaflet, and appears structurally normal. No aortic stenosis or regurgitati on. 8. There is no pericardial effusion. [facility] MANAGER: Paulina Arriola RDCS
[2021-03-13] MEDS: FOLIC ACID 1 MG TAB PO SCH (13:17)
[2021-03-13] MEDS: ASCORBIC ACID 500 MG TAB PO SCH (13:17)
[2021-03-13] MEDS: MULTIVITAMINS, THERA 1 EACH TAB PO SCH (13:17)
[2021-03-13] MEDS: PRIMIDONE 250 MG TAB PO SCH ×2 (13:17→20:21)
[2021-03-13] MEDS: THIAMINE 100 MG TAB PO SCH (13:19)
--- NOTE | 2021-03-13 14:32 | MR ---
EXAMINATION TYPE: MR brain wo con DATE OF EXAM: 03/13/2021 COMPARISON: CT brain 2 days ago. MRI brain April 20, 2016 HISTORY: Probable CVA, left leg weakness acute onset. TECHNIQUE: Multiplanar, multisequence imaging of the brain and brainstem is performed without IV cont rast. FINDINGS: Diffusion weighted images demonstrate a 13 x 5 mm ovoid area of increased signal on diffusion-weighte d images and diminished signal on ADC mapping that shows T2 hyperintensity consistent with evolving a cute infarct just off the midline in the right parietal occipital region image 324 series 408. Background mild to moderate ventricular and sulcal prominence. Background areas of T2 hyperintensity throughout the white matter progressed from 2016 MRI. Focal area of encephalomalacia inferior medial right occipital lobe noted. Midline structures demonstrate normal morphology. The craniocervical junction appears within normal limits. There is new loss of normal flow void right vertebral artery. Patchy increased fluid signal b ilateral mastoid air cells redemonstrated. The visualized sinuses are clear and the globes are intact . IMPRESSION: 1. Evolving acute 13 x 5 mm infarct high right parietal occipital region just off the midline. 2. Mild to moderate diffuse cerebral atrophy and chronic small vessel ischemic change along with old inferior medial right cerebellar infarct. 3. New loss of flow void distal right vertebral artery consistent with acute thrombus and/or markedly slow flow. Correlate clinically. 4. Retained fluid bilateral mastoid air cells favored over recurrent mastoiditis, correlate clinicall y.
--- NOTE | 2021-03-13 14:40 | P.PN ---
Subjective Progress Note Date: 03/13/21 Objective - Vital Signs Vital signs: Vital Signs Temp 98.3 F 03/13/21 08:00 Pulse 79 03/13/21 12:00 Resp 20 03/13/21 04:08 BP 145/77 03/13/21 12:00 Pulse Ox 94 L 03/13/21 12:00 Intake & Output 03/12/21 03/13/21 03/13/21 18:59 06:59 18:59 Intake Total 1140 660 Balance 1140 660 Weight 79 kg Intake: Oral 1140 660 Other: Voiding Method Diaper Diaper Diaper Incontinent Incontinent Incontinent # Voids 1 3 1 # Bowel Movements 1 1 - Exam PHYSICAL EXAMINATION: GENERAL:sitting up in bed, alert and oriented x3, not in any acute distress. HEENT: Pupils are round and equally reacting to light. EOMI. No conjunctival pallor. Normocephalic, atraumatic. CARDIOVASCULAR: S1 and S2 present. No murmurs, rubs, or gallops. PULMONARY:CTA, Bilateral bases diminished ABDOMEN: Soft, nontender, nondistended, normoactive bowel sounds. No palpable organomegaly. EXTREMITIES: No cyanosis, clubbing, or pedal edema. NEUROLOGICAL: Gross neurological examination did not reveal any focal deficits. Lifting legs off the bed. SKIN: Warm and dry, No rashes. - Labs CBC & Chem 7: 03/13/21 07:23 03/13/21 07:23 Labs: Abnormal Lab Results - Last 24 Hours (Table) 03/11/21 03/12/21 03/12/21 Range/Units 15:48 16:21 20:29 Lymphocytes # (1.0-4.8) k/uL BUN (9-20) mg/dL Creatinine (0.66-1.25) mg/dL Glucose (74-99) mg/dL POC Glucose (mg/dL) 155 H 159 H (75-99) mg/dL Hemoglobin A1c 6.7 H (4.0-6.0) % 03/12/21 03/13/21 03/13/21 Range/Units 20:33 06:17 07:23 Lymphocytes # 0.5 L (1.0-4.8) k/uL BUN (9-20) mg/dL Creatinine (0.66-1.25) mg/dL Glucose (74-99) mg/dL POC Glucose (mg/dL) 173 H 109 H (75-99) mg/dL Hemoglobin A1c (4.0-6.0) % 03/13/21 03/13/21 03/13/21 Range/Units 07:23 11:19 11:50 Lymphocytes # (1.0-4.8) k/uL BUN 21 H (9-20) mg/dL Creatinine 1.69 H (0.66-1.25) mg/dL Glucose 125 H (74-99) mg/dL POC Glucose (mg/dL) 164 H 153 H (75-99) mg/dL Hemoglobin A1c (4.0-6.0) % Assessment and Plan Assessment: -Possible Acute CVA with left-leg weakness, in a patient with history of right cerebellar stroke April 2016 -Left ICA stenosis, 50-69% reported per carotid duplex -COPD -Acute on Chronic kidney disease stage 3 -Hypertension -Type 2 diabetes mellitus -Diabetic peripheral neuropathy secondary to the above -Coronary artery disease with history of stenting -Prostate cancer status post radiation therapy, radiation seeds -Generalized medical debility -Vascular dementia. -Seizure disorder -Hyperlipidemia -History of mediastinal lymphadenopathy -Degenerative disc disease Plan: Continue on current medication regime ,monitoring and symptomatic treatment. .Neurology workup in progress. echo with bubble study & Brain MRI pending. Continue on aspirin, statin, Effient .Vascular consult in place regarding carotid stenosis. PT OT with potential for MATHEW at discharge. Close monitoring of renal function, with repeat labs ordered for a.m. The impression and plan of care has been dictated as directed. : I performed a history and examination of this patient, discussed the same with the dictator. I agree with the dictator's note ,documented as a scribe. Any additional findings or plans will be noted.
[2021-03-13 16:30] LABS: Glucose,Whole Blood 196 mg/dL (75-99)
[2021-03-13] MEDS: CYANOCOBALAMIN 500 MCG TAB PO SCH (17:48)
[2021-03-13] MEDS ORDERED: TICAGRELOR 90 MG TAB PO STA (18:00)
--- NOTE | 2021-03-13 18:03 | P.PN ---
Subjective Progress Note Date: 03/13/21 I am seeing the patient for the first time for neurological management. Please refer to Dr. Guaman's note for further details. He stated he has weakness over the entire left lower extremity with numbness. H e denies of any visual disturbance, difficulty getting his words out, slurring of his speech. He is accompanied with his and his brother. His stated he had old stroke that affected the left side but not as drastic as this. He follows-up with Dr. Alford's team for his neurological management. He is on ASA and Effient at home. Per his he was on ASA and short term Plavix but not sure who change it to Effient (neurology or cardiology). Objective - Vital Signs Vital signs: Vital Signs Temp 98.3 F 03/13/21 08:00 Pulse 79 03/13/21 12:00 Resp 20 03/13/21 04:08 BP 145/77 03/13/21 12:00 Pulse Ox 94 L 03/13/21 12:00 Intake & Output 03/12/21 03/13/21 03/13/21 18:59 06:59 18:59 Intake Total 1140 660 Balance 1140 660 Weight 79 kg Intake: Oral 1140 660 Other: Voiding Method Diaper Diaper Diaper Incontinent Incontinent Incontinent # Voids 1 3 1 # Bowel Movements 1 1 - Exam Patient is an elderly male, in no acute distress. NEUROLOGICAL EXAMINATION: Patient is alert awake oriented to time place and person. Speech and language functions are normal. Patient can name all objects, repetition is intact. No aphasia or dysarthria. Attention, concentration and fund of knowledge is adequate. Detailed cognitive function testing deferred. On cranial examination, pupils are round and reacting to light, visual irizarry are full on confrontation, extraocular muscles are intact with mild nystagmus on end gaze bilaterally. Patient has slightly droopy right corner of the mouth. His tongue protrudes to the midline. Palatal elevation and sensation normal, hearing and shoulder shrug normal, facial sensation normal. Gait is deferred. On muscle strength testing, The left upper extremity is 4+ to 5- and bilateral hand textile engineer is right is 5- while left is 4+. The left lower extremity proximaly is 1 to ?2 and flicker of movement over the left toe and 2nd digits. Otherwise 0/5 over the left lower extremity. The Rigth is 5/5. Tone and bulk of muscles normal. Patient has resting tremor of the right hand. Sensory to touch is equal with no neglect. Deep tendon reflexes are symmetric, 1 in the upper limbs, 1 in the lower limbs Plantars are mute. WORK-UP: MRI Brain is reported as evolving acute 13 x 5 mm infarct high right parietal occipital region just off the midline. Mild to moderate diffuse cerebral atrophy and chronic small vessel ischemic change along with old inferior median right cerebellar infarct. Of flow-void distal right vertebral artery consistent with acute thrombus and/or marked slow flow. Correlate clinically. Retained fluid bilateral mastoid air cells favored over recurrent mastoiditis Carotid duplex was reported as no significant right internal carotid artery or common carotid artery stenosis. Finding consistent with a moderate 50-69 stenosis of the proximal left internal carotid artery secondary to calcified plaque formation. 2-D echo was reported as left ventricular size is normal. Moderate concentric left ventricular hypertrophy. Ejection fraction of 60-65%. Contrast study was performed of agitated normal saline at rest and with cough. Poor acustic respond not able to determine any shunt. Hemoglobin A1c 6.7. Triglycerides 329, cholesterol is 245, LDLs 138 and HDL 41. Vitamin B-12 307. - Labs CBC & Chem 7: 03/13/21 07:23 03/13/21 07:23 Labs: Abnormal Lab Results - Last 24 Hours (Table) 03/11/21 03/12/21 03/12/21 Range/Units 15:48 20:29 20:33 Lymphocytes # (1.0-4.8) k/uL BUN (9-20) mg/dL Creatinine (0.66-1.25) mg/dL Glucose (74-99) mg/dL POC Glucose (mg/dL) 159 H 173 H (75-99) mg/dL Hemoglobin A1c 6.7 H (4.0-6.0) % 03/13/21 03/13/21 03/13/21 Range/Units 06:17 07:23 07:23 Lymphocytes # 0.5 L (1.0-4.8) k/uL BUN 21 H (9-20) mg/dL Creatinine 1.69 H (0.66-1.25) mg/dL Glucose 125 H (74-99) mg/dL POC Glucose (mg/dL) 109 H (75-99) mg/dL Hemoglobin A1c (4.0-6.0) % 03/13/21 03/13/21 03/13/21 Range/Units 11:19 11:50 16:29 Lymphocytes # (1.0-4.8) k/uL BUN (9-20) mg/dL Creatinine (0.66-1.25) mg/dL Glucose (74-99) mg/dL POC Glucose (mg/dL) 164 H 153 H 196 H (75-99) mg/dL Hemoglobin A1c (4.0-6.0) % Assessment and Plan Assessment: * acute ischemic stroke with left leg weakness and complaint of numbness (on MRI Brain reported as infarct over right parietal/occipital but I feel more parietal region). Patient has very minimal left facial asymmetry. Stroke seems embolic. 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 * History of Parkinson's disease * CAD * Diabetes * Hypertension * Hyperlipidemia * Osteoarthritis * Mild renal insufficiency Plan: * Ordered CT angiography of the head and neck. * Vascular surgery team is consulted. * Patient is already on high dose Lipitor 80 mg daily. Lipids are not controlled. Consider switching to newer agents. On fenofibrate 160mg qhs. * Because of his acute stroke, will continue his home dose of ASA 325mg daily but will stop Effient 10 mg daily and instead will load patient with Brilinta 180mg loading dose and then 90mg 1 tab bid. * Ordered an event monitor (recommend 30 days) and patient to follow-up with cardiology as outpatient. * Patient was notified that to consider a TURNER (especially with multiple strokes) and for now he said he will think about out and will let me know tomorrow if he want to proceed. * As above low vitamin B12 of 307 start the patient on vitamin B12 1000 g daily * We'll defer the rest of the medical management to the primary team. * Upon discharge the patient is to follow up with a neurologist within 1-2 weeks (He follows-up with Dr. Alford). For DVT prophylaxis on subq heparin. The plan is discussed with the patient and his who is at bedside Edin Maldonado MD Neuro-hospitalist Time with Patient: Less than 30
[2021-03-13 19:36] LABS: Glucose,Whole Blood 208 mg/dL (75-99)
[2021-03-13] MEDS: PANTOPRAZOLE 40 MG TABLET PO SCH (20:21)
[2021-03-13] MEDS: ATORVASTATIN 80 MG TAB PO SCH (20:22)
[2021-03-13] MEDS: FENOFIBRATE 160 MG TAB PO SCH (20:22)
[2021-03-13] MEDS: DONEPEZIL 10 MG TAB PO SCH (20:23)
--- NOTE | 2021-03-14 00:51 | CT ---
EXAMINATION TYPE: CT angio head neck DATE OF EXAM: 03/14/2021 COMPARISON: HISTORY: stroke. Carotid stenosis and ?vertebral thrombus. no prior CTA on PACS. prior brain w/o and MRI. CT DLP: 768 mGycm Automated exposure control for dose reduction was used. CONTRAST: Performed with IV Contrast, patient injected with 65ml mL of Isovue 370. There are 3-D post processed images. Images obtained from the aortic arch to the vertex of the brain with IV contrast. There is normal branching pattern of the great vessels on the aortic arch. There is arterial flow in both subclavian arteries. There is arterial flow in the common internal and external carotid arteries bilaterally. There is calcified plaque formation at the carotid artery bifurcations. There is estima jing 25% stenosis at the origin of the left internal carotid artery. There is estimated similar 25% st enosis origin of the right internal carotid artery. There is arterial flow in both vertebral arteries . Contrast density is lower in the right vertebral artery. I do not see any significant stenotic lesi on of the vertebral arteries. The lumen of the right vertebral artery is not optimally opacified. There is arterial flow in the vertebrobasilar artery system. There is arterial flow in the anterior m iddle and posterior cerebral arteries. I see no mass effect. There is no evidence of intracranial ane urysm or neovascularity. I do not see evidence of hemodynamic stenosis within the brain. There is nor mal enhancement of the venous sinuses. IMPRESSION: There is plaque formation at the carotid artery bifurcations and estimated 25% stenosis at the origin s of both internal carotid arteries. No evidence of carotid dissection. No significant intracranial angiographic abnormality. There is decreased contrast in the right vertebral artery which is suboptimally visualized. It is not clear if this is related to proximal stenosis. The possibility of a right vertebral dissection shoul d be also considered.
--- NOTE | 2021-03-14 05:55 | P.CONS ---
History of Present Illness - Chief Complaint Gait disturbance, left hemiparesthesias - History of Present Illness I had the opportunity to see patient for inpatient rehab consultation with regard to gait disturbance. [facility] and found to have left leg weakness. Seen by neurology, Dr. curry was working up stroke. Seen by Dr. Hernandez for vascular and recommending outpatient workup. Initial head CT demonstrates only atrophy. C-spine CT with spondylosis. Left humerus x-ray demonstrates per at medial humeral condyle. Chest x-ray negative, resolved left upper lobe infiltrate. Carotid Doppler done. Brain MRI demonstrates right parietal attenuation, occlusion partial of right vertebral, diffuse atrophy and mastoiditis. Has started therapies. PT re ports minimal moderate assistance for bed mobility and transfer and minimal assistance for gait 20 feet with roller walker. OT reports supervision for upper dressing, maximal assistance for lower dressing and toileting and moderate assistance for bathing and toilet transfer. Speech therapy reports [facility] . Recall 09/19. Previous functional history as elicited from patient: 70-year-old left-handed white male who is lives in one form with . Both are retired. does cooking, laundry, driving. is assisted patient with sitdown shower, dressing and gait with [address] Gold. Denies tobacco or alcohol. Review of Systems Review of systems: ENT: Denies sneezes or discharge. Eyes: Denies discharge or photophobia. Cardiac: Denies chest pain or palpitation. Pulmonary: Denies cough or shortness of breath. Gastrointestinal: Denies nausea, emesis, constipation, diarrhea. Genitourinary: Denies discharge or frequency. Musculoskeletal: Denies muscle or bone aches. Neurologic: Left leg weakness. Endocrine: Denies shakes or sweats. Oncology: Denies cancers. Dermatologic: Denies rash, itching, pruritus. ALLERGY/immunology: Denies sneezes, rashes. Past Medical History Past Medical History: Coronary Artery Disease (CAD), Cancer, Chest Pain / Angina, CVA/TIA, Dementia, Diabetes Mellitus, Hyperlipidemia, Hypertension, Myocardial Infarction (CT), Osteoarthritis (OA), Pneumonia, Renal Disease, Skin Disorder Additional Past Medical History / Comment(s): SEE DR BLEVINS'S NOTE FOR CARDIAC HX. HX OF SYNCOPAL EPISODES OF UNKNOWN CAUSE. Diabetes mellitus currently on insulin pump. SHORT TERM MEMORY LOSS. 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 COLONOCOSPY, LUMBAR EPIDURAL INJ, total 4 cardiac stents (2010 1 stent and 2014 3 stents),juventino cataracts/lens implants, colonoscopy, gold seed implants for prostate cancer. back surgery (11/2018) Past Anesthesia/Blood Transfusion Reactions: Motion Sickness Additional Past Anesthesia/Blood Transfusion Reaction / Comm: CLAUSTROPHOBIC Date of Last Stent Placement:: 2014 Past Psychological History: No Psychological Hx Reported, Depression Additional Psychological History / Comment(s): PT LIVES AT HOME WITH HIS KWAN IS INDEPENDANT WITH HIS OWN CARE. 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 SHORT TERM MEMORY LOSS. USES A WALKER. Smoking Status: Former smoker Past Alcohol Use History: None Reported Additional Past Alcohol Use History / Comment(s): STARTED SMOKING AROUND AGE 48(1998) SMOKE A PIPE OR CIGARS 2-3 times a week but quit 04/2016. Past Drug Use History: None Reported - Past Family History Father Family Medical History: Cancer Additional Family Medical History / Comment(s): FATHER HAD BLADDER CANCER AND OF THIS IN HIS 40'S Mother Family Medical History: Cancer, Dementia Additional Family Medical History / Comment(s): UTERINE CANCER. Mother of dementia at the age of 89yrs. Medications and Allergies Home Medications Medication Instructions Recorded Confirmed Type Aspirin 81 mg PO DAILY 01/12/15 03/11/21 History Atorvastatin Calcium [Lipitor] 80 mg PO HS 07/30/17 03/11/21 History Torsemide [Demadex] 5 mg PO DAILY PRN 02/20/18 03/11/21 History Magnesium Oxide 400 mg PO DAILY 12/01/18 03/11/21 History Escitalopram [Lexapro] 10 mg PO DAILY 01/06/19 03/11/21 History Thiamine [Vitamin B-1] 100 mg PO DAILY@1200 07/23/19 09/25/21 History rOPINIRole HCL [Requip] 0.25 mg PO BID 01/06/19 03/11/21 History Isosorbide Mononitrate ER [Imdur] 30 mg PO DAILY 04/02/19 03/11/21 History Prasugrel [Effient] 10 mg PO DAILY 04/02/19 03/11/21 History Fenofibrate Nanocrystallized 145 mg PO HS 06/13/20 03/11/21 History [Fenofibrate] Nitroglycerin Sl Tabs [Nitrostat] 0.4 mg SL Q5M PRN 06/13/20 03/11/21 History amLODIPine [Norvasc] 5 mg PO DAILY 06/13/20 03/11/21 History Ascorbic Acid [Vitamin C] 1,000 mg PO DAILY@1200 07/03/20 03/11/21 History Donepezil [Aricept] 10 mg PO HS@2100 07/03/20 03/11/21 History Metoprolol Tartrate [Lopressor] 25 mg PO BID 07/03/20 03/11/21 History OXcarbazepine [Trileptal] 300 mg PO BID 07/03/20 03/11/21 History Pantoprazole [Protonix] 40 mg PO HS 07/03/20 03/11/21 History Primidone [Mysoline] 125 mg PO DAILY@1400 07/03/20 03/11/21 History Primidone [Mysoline] 250 mg PO HS@2100 07/03/20 03/11/21 History Gabapentin [Neurontin] 400 mg PO BID 01/24/21 03/11/21 History INSULIN LISPRO (For Pump) [humaLOG 0.01 units SQ-PUMP CONTINUOUS 01/24/2103/11 History (For Pump)] Dapagliflozin Propanediol [Farxiga] 5 mg PO DAILY 03/11/21 03/11/21 History Ergocalciferol [Vitamin D2 (1250 1,250 mcg PO Q30D 03/11/21 03/11/21 History Mcg = 56801 Iu)] Folic Acid 1 mg PO DAILY@1200 03/11/21 03/11/21 History Memantine [Namenda] 10 mg PO BID 03/11/21 03/11/21 History Multivitamins, Thera [Multivitamin 1 tab PO DAILY@1200 03/11/21 03/11/21 History (formulary)] Allergies Allergy/AdvReac Type Severity Reaction Status Date / Time No Known Allergies Allergy Verified 03/11/21 15:03 Physical Exam Vitals: Vital Signs Temp Pulse Resp BP Pulse Ox 03/14/21 00:15 97.6 F 67 20 131/77 95 03/13/21 19:45 97.9 F 66 20 119/67 97 03/13/21 16:00 79 122/77 94 L 03/13/21 12:00 79 145/77 94 L 03/13/21 08:00 98.3 F 74 157/85 93 L Intake and Output 03/13/21 03/13/21 03/14/21 14:59 22:59 06:59 Intake Total 660 120 Balance 660 120 Intake: Oral 660 120 Other: Voiding Method Diaper Diaper Incontinent Incontinent # Voids 1 1 # Bowel Movements 1 Weight 70 kg Skin: Atrophic, intact. General: Thin build and comfortable appearance. Head: Normocephalic, atraumatic. Eyes: Symmetric. Pupils equal round. Ears: Symmetric. Hearing within normal limits. Mouth: Clear. Neck: Supple. Carotid without bruit. Cardiac: Regular rate and rhythm. Lungs: Clear anteriorly and posteriorly. Abdomen: Soft active nontender. Extremities: Normal tone. Neurological: Mental status: Alert, cooperative, pleasant. Cranial nerves: Symmetric facial tone and trapezius. Motor: Normal strength and isolation both arms and right leg. Left leg poor voluntary movement. Sensation: Intact throughout. DTRs: Symmetric and equal throughout. Mobility: Sits with moderate physical assistance. Results CBC & Chem 7: 03/13/21 07:23 03/13/21 07:23 Labs: Abnormal Lab Results - Last 24 Hours (Table) 03/13/21 03/13/21 03/13/21 Range/Units 06:17 07:23 07:23 Lymphocytes # 0.5 L (1.0-4.8) k/uL BUN 21 H (9-20) mg/dL Creatinine 1.69 H (0.66-1.25) mg/dL Glucose 125 H (74-99) mg/dL POC Glucose (mg/dL) 109 H (75-99) mg/dL 03/13/21 03/13/21 03/13/21 Range/Units 11:19 11:50 16:29 Lymphocytes # (1.0-4.8) k/uL BUN (9-20) mg/dL Creatinine (0.66-1.25) mg/dL Glucose (74-99) mg/dL POC Glucose (mg/dL) 164 H 153 H 196 H (75-99) mg/dL 03/13/21 Range/Units 19:33 Lymphocytes # (1.0-4.8) k/uL BUN (9-20) mg/dL Creatinine (0.66-1.25) mg/dL Glucose (74-99) mg/dL POC Glucose (mg/dL) 208 H (75-99) mg/dL Assessment and Plan (1) CVA (cerebral vascular accident) Current Visit: Yes Status: Chronic Code(s): I63.9 - CEREBRAL INFARCTION, UNSPECIFIED SNOMED Code(s): 841479036 (2) Breakthrough seizure Current Visit: No Status: Acute Code(s): G40.919 - EPILEPSY, UNSP, INTRACTABLE, WITHOUT STATUS EPILEPTICUS SNOMED Code(s): 027948690 Plan: Impression: 1. Gait disturbance with left leg weakness, stroke versus breakthrough seizure. 2. Coronary artery disease and history of angina and CT. 3. Hypertension. 4. Dyslipidemia. 5. Diabetes. 6. Chronic kidney disease. 7. History of stroke and Dementia. 8. Osteoarthritis. 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 Safety concerns noted. If this is a stroke, left leg weakness should persist. If its of breakthrough seizure, left leg weakness should resolve. We will follow with yourself. Rehab unit currently full.
[2021-03-14 06:21] LABS: Glucose,Whole Blood 142 mg/dL (75-99)
[2021-03-14] MEDS: INSULIN ASPART (NovoLOG) 100 UNIT/ML VIAL SQ SCH ×4 (07:11→21:02)
[2021-03-14 07:36] LABS: Calcium 9.4 mg/dL (8.4-10.2); Potassium 4.3 mmol/L (3.5-5.1)
[2021-03-14] MEDS: ISOSORBIDE MONONITRATE ER 30 MG TAB.ER.24H PO SCH (09:08)
[2021-03-14] MEDS: ESCITALOPRAM 10 MG TAB PO SCH (09:08)
[2021-03-14] MEDS: amLODIPine 5 MG TAB PO SCH (09:08)
[2021-03-14] MEDS: MAGNESIUM OXIDE 400 MG TAB PO SCH (09:08)
[2021-03-14] MEDS: TICAGRELOR 90 MG TAB PO SCH ×2 (09:08→21:03)
[2021-03-14] MEDS: HEPARIN SODIUM,PORCINE/PF 5,000 UNIT/0.5 ML SYRINGE SQ SCH ×2 (09:08→21:14)
[2021-03-14] MEDS: GABAPENTIN 400 MG CAP PO SCH ×2 (09:08→21:15)
[2021-03-14] MEDS: METOPROLOL TARTRATE 25 MG TAB PO SCH ×2 (09:09→21:15)
[2021-03-14] MEDS: OXcarbazepine 300 MG TAB PO SCH ×2 (09:09→21:15)
[2021-03-14] MEDS: MEMANTINE 10 MG TAB PO SCH ×2 (09:09→21:15)
[2021-03-14] MEDS: CYANOCOBALAMIN 500 MCG TAB PO SCH (09:12)
[2021-03-14] MEDS: ASPIRIN 81 MG PO SCH (11:59)
[2021-03-14] MEDS: FOLIC ACID 1 MG TAB PO SCH (11:59)
[2021-03-14] MEDS: ASCORBIC ACID 500 MG TAB PO SCH (11:59)
[2021-03-14] MEDS: MULTIVITAMINS, THERA 1 EACH TAB PO SCH (12:00)
[2021-03-14] MEDS: THIAMINE 100 MG TAB PO SCH (12:00)
[2021-03-14 12:07] LABS: Glucose,Whole Blood 152 mg/dL (75-99)
--- NOTE | 2021-03-14 13:33 | P.PN ---
Subjective Progress Note Date: 03/14/21 The patient seen at bedside and he stated that he is about the same today compared to when I saw him last yesterday. He stated that he still does not have any movement that he noticed in the left lower extremity and has not gotten worse or any better. He denies any neurological deficits. Objective - Vital Signs Vital signs: Vital Signs Temp 97.8 F 03/14/21 08:00 Pulse 70 03/14/21 08:00 Resp 18 03/14/21 08:00 BP 144/86 03/14/21 08:00 Pulse Ox 98 03/14/21 08:00 Intake & Output 03/13/21 03/14/21 03/14/21 18:59 06:59 18:59 Intake Total 780 240 Balance 780 240 Weight 70 kg Intake: Oral 780 240 Other: Voiding Method Diaper Diaper Incontinent Incontinent # Voids 1 2 # Bowel Movements 1 - Exam Patient is an elderly male, in no acute distress. NEUROLOGICAL EXAMINATION: Patient is alert awake oriented to time place and person. Speech and language functions are normal. Patient can name all objects, repetition is intact. No aphasia or dysarthria. Attention, concentration and fund of knowledge is adequate. Detailed cognitive function testing deferred. On cranial examination, pupils are round and reacting to light, visual irizarry are full on confrontation, extraocular muscles are intact with mild nystagmus on end gaze bilaterally. Patient has slightly droopy right corner of the mouth. His tongue protrudes to the midline. Palatal elevation and sensation normal, hearing and shoulder shrug normal, facial sensation normal. Gait is deferred. On muscle strength testing, The left upper extremity is 4+ to 5- and bilateral hand environmental engineering professor is right is 5- while left is 4+. The left lower extremity proximaly is 1 to ?2 and flicker of movement over the left toe and 2nd digits. Otherwise 0/5 over the left lower extremity. The Rigth is 5/5. Tone and bulk of muscles normal. Patient has resting tremor of the right hand. Sensory to touch is equal with no neglect. Deep tendon reflexes are symmetric, 1 in the upper limbs, 1 in the lower limbs Plantars are mute. WORK-UP: MRI Brain is reported as evolving acute 13 x 5 mm infarct high right parietal occipital region just off the midline. Mild to moderate diffuse cerebral atrophy and chronic small vessel ischemic change along with old inferior median right cerebellar infarct. Of flow-void distal right vertebral artery consistent with acute thrombus and/or marked slow flow. Correlate clinically. Retained fluid bilateral mastoid air cells favored over recurrent mastoiditis Carotid duplex was reported as no significant right internal carotid artery or common carotid artery stenosis. Finding consistent with a moderate 50-69 stenosis of the proximal left internal carotid artery secondary to calcified plaque formation. 2-D echo was reported as left ventricular size is normal. Moderate concentric left ventricular hypertrophy. Ejection fraction of 60-65%. Contrast study was performed of agitated normal saline at rest and with cough. Poor acustic respond not able to determine any shunt. CT angiography of the head and neck was reported as there is plaque formation at the carotid artery bifurcation and estimated 25% stenosis at the origin of both internal carotid arteries. No evidence of carotid dissection. No significant intercranial and angiographic abnormality. There is a decrease contrast in the right vertebral artery which is suboptimally visualized. It is not clear if this is related to proximal stenosis. The possibility of the right vertebral dissection should be also considered. I spoke with the reading radiologist today (Dr. Michael) and he stated that he does not think there is vertebral dissection but rather right vertebral stenosis approximately about 90%. Hemoglobin A1c 6.7. Triglycerides 329, cholesterol is 245, LDLs 138 and HDL 41. Vitamin B-12 307. - Labs CBC & Chem 7: 03/13/21 07:23 03/14/21 06:57 Labs: Abnormal Lab Results - Last 24 Hours (Table) 03/13/21 03/13/21 03/14/21 Range/Units 16:29 19:33 06:20 BUN (9-20) mg/dL Creatinine (0.66-1.25) mg/dL Glucose (74-99) mg/dL POC Glucose (mg/dL) 196 H 208 H 142 H (75-99) mg/dL 03/14/21 03/14/21 Range/Units 06:57 12:06 BUN 23 H (9-20) mg/dL Creatinine 1.68 H (0.66-1.25) mg/dL Glucose 141 H (74-99) mg/dL POC Glucose (mg/dL) 152 H (75-99) mg/dL Assessment and Plan Assessment: * acute ischemic stroke with left leg weakness and complaint of numbness (on MRI Brain reported as infarct over right parietal/occipital but I feel more parietal region). Patient has very minimal left facial asymmetry. Stroke seems possible embolic. 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 I don't feel this is cause of current stroke. Per reading radiologist in AM on 03/14/2021 does not seem to be vertebral dissection. * History of possible seizure disorder, on oxcarbazepine. * History of Parkinson's disease * CAD * Diabetes * Hypertension * Hyperlipidemia * Osteoarthritis * Mild renal insufficiency Plan: * Vascular surgery team is consulted. I spoke with them and they did not appreciate vertebral dissection. Regarding the right vertebral stenosis, they stated they will follow-up as outpatient and will get follow-up imaging. * Patient is already on high dose Lipitor 80 mg daily. Lipids are not controlled. Consider switching to newer agents. On fenofibrate 160mg qhs. * Because of his acute stroke, decreased ASA from 325mg to 81mg daily and placed on Brilinta 90mg 1 tab bid. * Ordered an event monitor (recommend 30 days) and patient to follow-up with cardiology as outpatient. * Patient was notified that to consider a TURNER (especially with multiple strokes) especially since he has multiple strokes and wants to puruse with it. If TURNER is negative then patient is clear from neurological perspective. * As above low vitamin B12 of 307 start the patient on vitamin B12 1000 g daily * We'll defer the rest of the medical management to the primary team. * Upon discharge the patient is to follow up with a neurologist within 1-2 weeks (He follows-up with Dr. Alford). He was notified to consider following-up with a stroke specialist as well. * I feel the patient will benefit from rehab. For DVT prophylaxis on subq heparin. The plan is discussed with the patient and his who is at bedside. Edin Maldonado MD Neuro-hospitalist Time with Patient: Less than 30
[2021-03-14] MEDS: TORSEMIDE 20 MG TAB PO SCH (14:45)
[2021-03-14] MEDS: PRIMIDONE 250 MG TAB PO SCH ×2 (14:48→21:03)
--- NOTE | 2021-03-14 15:17 | P.PN ---
Subjective Progress Note Date: 03/14/21 Patient was seen and examined with no acute changes through the night. Patient underwent a CT angiogram of the head and neck yesterday showing plaque formation at the carotid artery bifurcations an estimated 25% stenosis at the origins of both internal carotid arteries. No evidence of carotid dissection. No significant intracranial angiographic abnormality. There is decreased contrast in the right vertebral artery branches some optimally visualized is not clear if this is related to proximal stenosis. The possibility of a right vertebral dissection could also be considered. MRI of the brain shows evolving acute 13 x 5 mm infarct high right parietal occipital region just off the midline. Mild to moderate diffuse cerebral atrophy and chronic small vessel ischemic change along with old inferior medial right cerebellar infarct. New loss of flow void distal right vertebral artery consistent with acute thrombus and/or markedly slow flow. Correlate clinically. Retained fluid bilateral mastoid air cells favored over recurrent mastoiditis correlate clinically. Objective - Vital Signs Vital signs: Vital Signs Temp 97.6 F 03/14/21 04:20 Pulse 67 03/14/21 04:20 Resp 20 03/14/21 04:20 BP 158/79 03/14/21 04:20 Pulse Ox 96 03/14/21 04:20 Intake & Output 03/13/21 03/14/21 03/14/21 18:59 06:59 18:59 Intake Total 780 Balance 780 Weight 70 kg Intake: Oral 780 Other: Voiding Method Diaper Diaper Incontinent Incontinent # Voids 1 2 # Bowel Movements 1 - Exam General appearance: The patient is alert, oriented, ears in no acute distress. HET: Head is normocephalic and atraumatic. Pupils are equal and reactive. Neck: Supple without lymphadenopathy. Trachea midline. Extremities: Normal skin color and turgor. No cyanosis, rash, ulceration, clubbing, or edema. Neurological: Patient alert and oriented 3. Left lower extremity weakness. - Labs CBC & Chem 7: 03/13/21 07:23 03/14/21 06:57 Labs: Abnormal Lab Results - Last 24 Hours (Table) 03/13/21 03/13/21 03/13/21 Range/Units 11:19 11:50 16:29 BUN (9-20) mg/dL Creatinine (0.66-1.25) mg/dL Glucose (74-99) mg/dL POC Glucose (mg/dL) 164 H 153 H 196 H (75-99) mg/dL 03/13/21 03/14/21 03/14/21 Range/Units 19:33 06:20 06:57 BUN 23 H (9-20) mg/dL Creatinine 1.68 H (0.66-1.25) mg/dL Glucose 141 H (74-99) mg/dL POC Glucose (mg/dL) 208 H 142 H (75-99) mg/dL Assessment and Plan Assessment: 1. Carotid stenosis, 25% bilateral ICA stenosis per CTA 2. Left lower extremity weakness 3. Evolving acute 13 x 5 mm infarct high right parieto-occipital region just off midline. 4. Previous history of CVA with residual left-sided weakness 5. History of coronary artery disease status post stenting 6. History of diabetes mellitus 7. History of chronic kidney disease 8. History of hypertension and hyperlipidemia Plan: 1. Antiplatelet therapy per recommendations from neurology, continue high-dose statin 2. CT angiogram head and neck and MRI reviewed 3. Recommend outpatient follow-up last surveillance 4. Further recommendations to follow The impression and plan of care has been dictated as directed. Dr. Briseno I performed a history and examination of this patient, discussed the same with the dictator. I agree with the dictator's note ,documented as a scribe. Any additional findings or plans will be noted.
--- NOTE | 2021-03-14 16:27 | P.PN ---
Subjective Progress Note Date: 03/14/21 -Patient currently states he feels fine, currently denies motor strength loss, lifting his legs off the bed. Neuro workup in progress. Scheduled for swallow evaluation. Denies chest pain, palpitations or shortness of breath. Echo reported moderate concentric left ventricular hypertrophy, normal LV funct ion with EF 60-65%. Vascular consult in place regarding carotid stenosis. Brain MRI pending. 03/14/2021 this morning complaining of left lower extremity weakness. Denies lightheadedness, dizziness or focal deficits. Echo reporting normal EF, poor acoustic respond not able to determine any shunt. MRI Brain reported as evolving acute 13 x 5 mm infarct high right parietal occipital region just off the midline. Mild to moderate diffuse cerebral atrophy and chronic small vessel ischemic change along with old inferior median right cerebellar infarct. CT angiogram of head and neck reported plaque formation at the carotid artery bifurcation and estimated 25% stenosis at the origin of both internal carotid arteries. No evidence of carotid dissection. No significant intercranial and angiographic abnormality. There is a decrease contrast in the right vertebral artery which is suboptimally visualized, not clear if this is related to proximal stenosis,possibility of the right vertebral dissection should be also considered. Maintained on Lipitor, aspirin, Brilenta. Objective - Vital Signs Vital signs: Vital Signs Temp 97.8 F 03/14/21 11:00 Pulse 69 03/14/21 12:00 Resp 20 03/14/21 12:00 BP 120/75 03/14/21 12:00 Pulse Ox 96 03/14/21 12:00 Intake & Output 03/13/21 03/14/21 03/14/21 18:59 06:59 18:59 Intake Total 780 480 Balance 780 480 Weight 70 kg Intake: Oral 780 480 Other: Voiding Method Diaper Diaper Incontinent Incontinent # Voids 1 2 1 # Bowel Movements 1 - Exam PHYSICAL EXAMINATION: GENERAL:sitting up in bed, alert and oriented x3, not in any acute distress. HEENT: Pupils are round and equally reacting to light. EOMI. No conjunctival pallor. Normocephalic, atraumatic. CARDIOVASCULAR: S1 and S2 present. No murmurs, rubs, or gallops. PULMONARY:CTA, Bilateral bases diminished ABDOMEN: Soft, nontender, nondistended, normoactive bowel sounds. No palpable organomegaly. EXTREMITIES: No cyanosis, clubbing, or pedal edema. NEUROLOGICAL: Left lower extremity weakness present this morning, alert and oriented 3 SKIN: Warm and dry, No rashes. - Labs CBC & Chem 7: 03/13/21 07:23 03/14/21 06:57 Labs: Abnormal Lab Results - Last 24 Hours (Table) 03/13/21 03/13/21 03/14/21 Range/Units 16:29 19:33 06:20 BUN (9-20) mg/dL Creatinine (0.66-1.25) mg/dL Glucose (74-99) mg/dL POC Glucose (mg/dL) 196 H 208 H 142 H (75-99) mg/dL 03/14/21 03/14/21 Range/Units 06:57 12:06 BUN 23 H (9-20) mg/dL Creatinine 1.68 H (0.66-1.25) mg/dL Glucose 141 H (74-99) mg/dL POC Glucose (mg/dL) 152 H (75-99) mg/dL Assessment and Plan Assessment: -Acute CVA, right parietal, occipital as per MRI, possibly embolic, with left- leg weakness, in a patient with history of right cerebellar stroke April 2016. -Left ICA stenosis, 50-69% reported per carotid duplex, 25% stenosis bilateral ICA per CTA -Right vertebral stenosis 90%-not vertebral dissection per discussion between radiology and neurology. -COPD -Acute on Chronic kidney disease stage 3 -Hypertension -Type 2 diabetes mellitus -Diabetic peripheral neuropathy secondary to the above -Coronary artery disease with history of stenting -Prostate cancer status post radiation therapy, radiation seeds -Generalized medical debility -Vascular dementia. -Seizure disorder -Hyperlipidemia -History of mediastinal lymphadenopathy -Degenerative disc disease Plan: Continue on current medication regime ,monitoring and symptomatic treatment. Discharge planning in progress for inpatient rehab at discharge, pending final clearance/DC recommendations from neurology. The impression and plan of care has been dictated as directed. : I performed a history and examination of this patient, discussed the same with the dictator. I agree with the dictator's note ,documented as a scribe. Any additional findings or plans will be noted.
[2021-03-14 16:36] LABS: Glucose,Whole Blood 216 mg/dL (75-99)
[2021-03-14 20:07] LABS: Glucose,Whole Blood 228 mg/dL (75-99)
[2021-03-14] MEDS: SODIUM CHLORIDE 0.9% 1,000 ML IV SCH (20:20)
[2021-03-14] MEDS: ASPIRIN 325 MG TAB PO SCH (20:21)
[2021-03-14] MEDS: PANTOPRAZOLE 40 MG TABLET PO SCH (21:03)
[2021-03-14] MEDS: FENOFIBRATE 160 MG TAB PO SCH (21:15)
[2021-03-14] MEDS: DONEPEZIL 10 MG TAB PO SCH (21:15)
[2021-03-14] MEDS: ATORVASTATIN 80 MG TAB PO SCH (21:15)
[2021-03-15 05:52] LABS: Glucose,Whole Blood 163 mg/dL (75-99)
[2021-03-15] MEDS: INSULIN ASPART (NovoLOG) 100 UNIT/ML VIAL SQ SCH ×4 (06:35→21:00)
--- NOTE | 2021-03-15 10:40 | P.CRDCN ---
History of Present Illness History of present illness: HISTORY OF PRESENTING ILLNESS This is a pleasant 70-year-old male past medical history significant for coronary artery disease status post PCI to the LAD and RCA in 2015 in 2010, hypertension, dyslipidemia, diabetes mellitus and CVA in the past. He follows in the office with Dr. Pickens. We have been asked to see in consultation for TURNER. Sent into the hospital symptoms of fall and left-sided weakness. He has been diagnosed with an acute right parietal-occipital infarct thought to be embolic in nature. He is seen and examined resting comfortably lying flat in bed in no acute distress. He denies symptoms of chest pain, shortness of breath, dizziness or palpitations. Telemetry tracings throughout his hospitalization reveal sinus rhythm. EKG on arrival revealed sinus mechanism with nonspecific ST abnormalities inferiorly. Laboratory data reviewed, sodium 139, potassium 4.3, creatinine 1.68, CBC unremarkable. Current daily cardiac medications include amlodipine 5 mg daily, Demadex 5 mg daily as needed for lower extremity swelling, Effient 10 mg daily, Lopressor 25 mg twice a day, Imdur 30 mg daily, aspirin 81 mg daily and atorvastatin 80 mg daily. Echoc ardiogram obtained on this admission reveals preserved LV systolic function with ejection fraction 60-65%, mildly enlarged right ventricle, unable to assess bubble study. REVIEW OF SYSTEMS At the time of my exam: CONSTITUTIONAL: Denies fever or chills. CARDIOVASCULAR: Denies chest pain, shortness of breath, orthopnea, PND or palpitations. RESPIRATORY: Denies cough. GASTROINTESTINAL: Denies abdominal pain, diarrhea, constipation, nausea or vomiting. MUSCULOSKELETAL: Complains of left lower extremity weakness. Denies myalgias. NEUROLOGIC: Denies numbness, tingling, headache or weakness. ENDOCRINE: Denies fatigue, weight change, polydipsia or polyurina. GENITOURINARY: Denies burning, hematuria or urgency with micturation. HEMATOLOGIC: Denies history of anemia or bleeding. PHYSICAL EXAMINATION Blood pressure 133/62 heart rate 69 afebrile and maintaining oxygen saturation on nasal cannula. CONSTITUTIONAL: No apparent distress. HEENT: Head is normocephalic. Pupils are equal, round. Sclerae anicteric. Mucous membranes of the mouth are moist. No JVD. No carotid bruit. CHEST EXAMINATION: Lungs are clear to auscultation. No chest wall tenderness is noted on palpation or with deep breathing. HEART EXAMINATION: Regular rate and rhythm. S1, S2 heard. No murmurs, gallops or rub. ABDOMEN: Soft, nontender. EXTREMITIES: 2+ peripheral pulses, no lower extremity edema and no calf tende rness. NEUROLOGIC EXAMINATION: Patient is awake, alert and oriented x3. ASSESSMENT Acute CVA Coronary artery disease Hypertension Dyslipidemia Diabetes mellitus PLAN Proceed with TURNER as requested. Thank you kindly for this consultation. Nurse Practitioner note has been reviewed, I agree with a documented findings and plan of care. Patient was seen and examined. Past Medical History Past Medical History: Coronary Artery Disease (CAD), Cancer, Chest Pain / Angina, CVA/TIA, Dementia, Diabetes Mellitus, Hyperlipidemia, Hypertension, Myocardial Infarction (AL), Osteoarthritis (OA), Pneumonia, Renal Disease, Skin Disorder Additional Past Medical History / Comment(s): SEE DR BLEVINS'S NOTE FOR CARDIAC HX. HX OF SYNCOPAL EPISODES OF UNKNOWN CAUSE. Diabetes mellitus currently on insulin pump. SHORT TERM MEMORY LOSS. 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 COLONOCOSPY, LUMBAR EPIDURAL INJ, total 4 cardiac stents (2010 1 stent and 2014 3 stents),juventino cataracts/lens implants, colonoscopy, gold seed implants for prostate cancer. back surgery (11/2018) Past Anesthesia/Blood Transfusion Reactions: Motion Sickness Additional Past Anesthesia/Blood Transfusion Reaction / Comment(s): CLAUSTROPHOBIC Date of Last Stent Placement:: 2014 Past Psychological History: No Psychological Hx Reported, Depression Additional Psychological History / Comment(s): PT LIVES AT HOME WITH HIS KWAN IS INDEPENDANT WITH HIS OWN CARE. USED TO WORK FOR [employer]. SHORT TERM MEMORY LOSS. USES A WALKER. Smoking Status: Former smoker Past Alcohol Use History: None Reported Additional Past Alcohol Use History / Comment(s): STARTED SMOKING AROUND AGE 48(1998) SMOKE A PIPE OR CIGARS 2-3 times a week but quit 04/2016. Past Drug Use History: None Reported - Past Family History Father Family Medical History: Cancer Additional Family Medical History / Comment(s): FATHER HAD BLADDER CANCER AND OF THIS IN HIS 40'S Mother Family Medical History: Cancer, Dementia Additional Family Medical History / Comment(s): UTERINE CANCER. Mother of dementia at the age of 89yrs. Medications and Allergies Home Medications Medication Instructions Recorded Confirmed Type Aspirin 81 mg PO DAILY 01/12/15 03/11/21 History Atorvastatin Calcium [Lipitor] 80 mg PO HS 07/30/17 03/11/21 History Torsemide [Demadex] 5 mg PO DAILY PRN 02/20/18 03/11/21 History Magnesium Oxide 400 mg PO DAILY 12/01/18 03/11/21 History Escitalopram [Lexapro] 10 mg PO DAILY 01/06/19 03/11/21 History Thiamine [Vitamin B-1] 100 mg PO DAILY@1200 01/06/19 03/11/21 History rOPINIRole HCL [Requip] 0.25 mg PO BID 01/06/19 03/11/21 History Isosorbide Mononitrate ER [Imdur] 30 mg PO DAILY 04/02/19 03/11/21 History Prasugrel [Effient] 10 mg PO DAILY 04/02/19 03/11/21 History Fenofibrate Nanocrystallized 145 mg PO HS 06/13/20 03/11/21 History [Fenofibrate] Nitroglycerin Sl Tabs [Nitrostat] 0.4 mg SL Q5M PRN 06/13/20 03/11/21 History amLODIPine [Norvasc] 5 mg PO DAILY 06/13/20 03/11/21 History Ascorbic Acid [Vitamin C] 1,000 mg PO DAILY@1200 07/03/20 03/11/21 History Donepezil [Aricept] 10 mg PO HS@2100 07/03/20 03/11/21 History Metoprolol Tartrate [Lopressor] 25 mg PO BID 07/03/20 03/11/21 History OXcarbazepine [Trileptal] 300 mg PO BID 07/03/20 03/11/21 History Pantoprazole [Protonix] 40 mg PO HS 07/03/20 03/11/21 History Primidone [Mysoline] 125 mg PO DAILY@1400 07/03/20 03/11/21 History Primidone [Mysoline] 250 mg PO HS@2100 07/03/20 03/11/21 History Gabapentin [Neurontin] 400 mg PO BID 01/24/21 03/11/21 History INSULIN LISPRO (For Pump) [humaLOG 0.01 units SQ-PUMP CONTINUOUS 01/24/21 03/11/21 History (For Pump)] Dapagliflozin Propanediol [Farxiga] 5 mg PO DAILY 03/11/21 03/11/21 History Ergocalciferol [Vitamin D2 (1250 1,250 mcg PO Q30D 03/11/21 03/11/21 History Mcg = 85295 Iu)] Folic Acid 1 mg PO DAILY@1200 03/11/21 03/11/21 History Memantine [Namenda] 10 mg PO BID 03/11/21 03/11/21 History Multivitamins, Thera [Multivitamin 1 tab PO DAILY@1200 03/11/21 03/11/21 History (formulary)] Allergies Allergy/AdvReac Type Severity Reaction Status Date / Time No Known Allergies Allergy Verified 03/11/21 15:03 Physical Exam Vitals: Vital Signs Temp Pulse Pulse Resp BP BP Pulse Ox 03/15/21 03:44 69 18 133/62 95 03/15/21 01:20 81 18 03/14/21 23:59 98 F 81 18 129/73 96 03/14/21 20:34 98.3 F 78 18 133/74 95 03/14/21 20:00 98 F 80 16 145/82 98 03/14/21 16:00 98.1 F 62 18 111/62 98 03/14/21 14:00 20 03/14/21 12:00 69 20 120/75 96 03/14/21 11:00 97.8 F 70 18 144/86 98 Intake and Output 03/14/21 03/15/21 03/15/21 22:59 06:59 14:59 Other: Voiding Method Diaper Diaper # Voids 1 1 Weight 79.5 kg Results 03/13/21 07:23 03/14/21 06:57 Current Medications Generic Name Dose Route Start Last Admin Trade Name Freq PRN Reason Stop Dose Admin Amlodipine Besylate 5 mg 03/13/21 09:00 09/28/21 09:08 Amlodipine 5 Mg Tab PO 5 mg DAILY PA Administration Ascorbic Acid 1,000 mg 03/13/21 12:00 03/14/21 11:59 Ascorbic Acid 500 Mg Tab PO 1,000 mg DAILY@1200 PA Administration Aspirin 81 mg 03/14/21 10:30 03/14/21 11:59 Aspirin 81 Mg PO 81 mg DAILY PA Administration Atorvastatin Calcium 80 mg 03/12/21 21:00 03/14/21 21:15 Atorvastatin 80 Mg Tab PO 80 mg HS PA Administration Cyanocobalamin 1,000 mcg 03/13/21 17:30 03/14/21 09:12 Cyanocobalamin 500 Mcg Tab PO 1,000 mcg DAILY PA Administration Donepezil HCl 10 mg 03/12/21 21:00 03/14/21 21:15 Donepezil 10 Mg Tab PO 10 mg HS@2100 PA Administration Ergocalciferol 1,250 mcg 03/30/21 09:00 Ergocalciferol 1,250 Mcg (50,000 Iu) Capsule PO Q30D [facility] Escitalopram Oxalate 10 mg 03/13/21 09:00 03/14/21 09:08 Escitalopram 10 Mg Tab PO 10 mg DAILY PA Administration Fenofibrate 160 mg 03/12/21 21:00 03/14/21 21:15 Fenofibrate 160 Mg Tab PO 160 mg HS PA Administration Folic Acid 1 mg 03/13/21 12:00 03/14/21 11:59 Folic Acid 1 Mg Tab PO 1 mg DAILY@1200 PA Administration Furosemide 10 mg 03/11/21 18:18 Furosemide 10 Mg Tab PO DAILY PRN Edema Gabapentin 400 mg 03/12/21 21:00 03/14/21 21:15 Gabapentin 400 Mg Cap PO 400 mg BID PA Administration Heparin Sodium (Porcine) 5,000 unit 03/12/21 21:00 03/14/21 21:14 Heparin Sodium,Porcine/Pf 5,000 Unit/0.5 Ml Syringe SQ 5,000 unit Q12HR PA Administration Sodium Chloride 1,000 mls @ 50 mls/hr 03/11/21 18:15 03/14/21 20:20 Saline 0.9% IV Not Given .Q20H PA Insulin Aspart 0 unit 03/12/21 07:30 03/15/21 06:35 Insulin Aspart (Novolog) 100 Unit/Ml Vial SQ 2 unit ACHS PA Administration Protocol Isosorbide Mononitrate 30 mg 03/13/21 09:00 03/14/21 09:08 Isosorbide Mononitrate Er 30 Mg Tab.Er.24h PO 30 mg DAILY PA Administration Magnesium Oxide 400 mg 03/13/21 09:00 03/14/21 09:08 Magnesium Oxide 400 Mg Tab PO 400 mg DAILY PA Administration Memantine 10 mg 03/12/21 21:00 03/14/21 21:15 Memantine 10 Mg Tab PO 10 mg BID PA Administration Metoprolol Tartrate 25 mg 03/12/21 21:00 03/14/21 21:15 Metoprolol Tartrate 25 Mg Tab PO 25 mg BID PA Administration Multivitamins 1 each 03/12/21 12:00 03/14/21 12:00 Multivitamins, Thera 1 Each Tab PO 1 each DAILY@1200 PA Administration Nitroglycerin 0.4 mg 03/11/21 18:18 Nitroglycerin Sl Tabs 0.4 Mg Tab SUBLINGUAL Q5M PRN Chest Pain Dapagliflozin 5 mg 03/13/21 09:00 03/14/21 09:12 Propanediol [Farxiga PO Not Given ] 5 Mg Tablet DAILY PA Oxcarbazepine 300 mg 03/11/21 21:00 03/14/21 21:15 Oxcarbazepine 300 Mg Tab PO 300 mg BID PA Administration Pantoprazole Sodium 40 mg 03/11/21 21:00 03/14/21 21:03 Pantoprazole 40 Mg Tablet PO 40 mg HS PA Administration Primidone 250 mg 03/11/21 21:00 03/14/21 21:03 Primidone 250 Mg Tab PO 250 mg HS@2100 PA Administration Primidone 125 mg 03/12/21 14:00 03/14/21 14:48 Primidone 250 Mg Tab PO 125 mg DAILY@1400 PA Administration Ropinirole HCl 0.25 mg 03/11/21 21:00 03/14/21 21:03 Ropinirole Hcl 0.25 Mg Tab PO 0.25 mg BID PA Administration Thiamine HCl 100 mg 03/12/21 12:00 03/14/21 12:00 Thiamine 100 Mg Tab PO 100 mg DAILY@1200 PA Administration Ticagrelor 90 mg 03/14/21 09:00 03/14/21 21:03 Ticagrelor 90 Mg Tab PO 90 mg BID PA Administration Torsemide 5 mg 03/14/21 14:00 03/14/21 14:45 Torsemide 20 Mg Tab PO 5 mg DAILY PA Administration Intake and Output 03/14/21 03/15/21 03/15/21 22:59 06:59 14:59 Other: Voiding Method Diaper Diaper # Voids 1 1 Weight 79.5 kg 03/13/21 07:23 03/14/21 06:57
[2021-03-15] MEDS ORDERED: IV FLUID CONTINUATION 150 ML IV ONE (11:15)
[2021-03-15] MEDS ORDERED: BENZOCAINE SPRAY 1 CAN TOPICAL ONE (11:15)
[2021-03-15] MEDS ORDERED: fentaNYL (PF) 50 MCG/ML 2 ML AMP IV ONE (11:36)
[2021-03-15] MEDS ORDERED: MIDAZOLAM 2 MG/2 ML VIAL IV ONE (11:37)
[2021-03-15 13:02] LABS: Glucose,Whole Blood 210 mg/dL (75-99)
[2021-03-15] MEDS: MAGNESIUM OXIDE 400 MG TAB PO SCH (13:09)
[2021-03-15] MEDS: OXcarbazepine 300 MG TAB PO SCH ×2 (13:10→21:03)
[2021-03-15] MEDS: TICAGRELOR 90 MG TAB PO SCH ×2 (13:10→21:02)
[2021-03-15] MEDS: GABAPENTIN 400 MG CAP PO SCH ×2 (13:11→21:01)
[2021-03-15] MEDS: ESCITALOPRAM 10 MG TAB PO SCH (13:12)
[2021-03-15] MEDS: METOPROLOL TARTRATE 25 MG TAB PO SCH ×2 (13:12→21:01)
[2021-03-15] MEDS: ASCORBIC ACID 500 MG TAB PO SCH (13:12)
[2021-03-15] MEDS: amLODIPine 5 MG TAB PO SCH (13:13)
[2021-03-15] MEDS: THIAMINE 100 MG TAB PO SCH (13:13)
[2021-03-15] MEDS: CYANOCOBALAMIN 500 MCG TAB PO SCH (13:13)
[2021-03-15] MEDS: MEMANTINE 10 MG TAB PO SCH ×2 (13:14→21:01)
[2021-03-15] MEDS: ASPIRIN 81 MG PO SCH (13:14)
[2021-03-15] MEDS: HEPARIN SODIUM,PORCINE/PF 5,000 UNIT/0.5 ML SYRINGE SQ SCH ×2 (13:15→21:00)
[2021-03-15] MEDS: MULTIVITAMINS, THERA 1 EACH TAB PO SCH (13:15)
[2021-03-15] MEDS: FOLIC ACID 1 MG TAB PO SCH (13:15)
--- NOTE | 2021-03-15 13:15 | P.PN ---
Subjective Progress Note Date: 03/15/21 The patient was seen at bedside and he feels about the same. He continues not to have movement over the left lower extremity. He denies of any new neurological problems. Objective - Vital Signs Vital signs: Vital Signs Temp 97.8 F 03/15/21 08:00 Pulse 99 03/15/21 11:44 Resp 16 03/15/21 11:44 BP 137/63 03/15/21 11:44 Pulse Ox 96 03/15/21 11:44 Intake & Output 03/14/21 03/15/21 03/15/21 18:59 06:59 18:59 Intake Total 480 340 Balance 480 340 Weight 79.5 kg Intake: IV 100 Oral 480 240 Other: Voiding Method Diaper # Voids 1 1 1 - Exam Patient is an elderly male, in no acute distress. NEUROLOGICAL EXAMINATION: Patient is alert awake oriented to time place and person. Speech and language functions are normal. Patient can name all objects, repetition is intact. No aphasia or dysarthria. Attention, concentration and fund of knowledge is adequate. Detailed cognitive function testing deferred. On cranial examination, pupils are round and reacting to light, visual irizarry are full on confrontation, extraocular muscles are intact with mild nystagmus on end gaze bilaterally. Patient has slightly droopy right corner of the mouth. His tongue protrudes to the midline. Palatal elevation and sensation normal, he aring and shoulder shrug normal, facial sensation normal. Gait is deferred. On muscle strength testing, The left upper extremity is 4+ to 5- and bilateral hand chair inspector and leveler is right is 5- while left is 4+. The left lower extremity at thights are 1 to slight 2. Otherwise no movement noted in left lower extremity. The Rigth is 5/5. Tone and bulk of muscles normal. Sensory to touch is equal with no neglect. Deep tendon reflexes are symmetric, 1 in the upper limbs, 1 in the lower limbs Plantars are mute. WORK-UP: MRI Brain is reported as evolving acute 13 x 5 mm infarct high right parietal oc cipital region just off the midline. Mild to moderate diffuse cerebral atrophy and chronic small vessel ischemic change along with old inferior median right cerebellar infarct. Of flow-void distal right vertebral artery consistent with acute thrombus and/or marked slow flow. Correlate clinically. Retained fluid bilateral mastoid air cells favored over recurrent mastoiditis Carotid duplex was reported as no significant right internal carotid artery or common carotid artery stenosis. Finding consistent with a moderate 50-69 stenosis of the proximal left internal carotid artery secondary to calcified plaque formation. 2-D echo was reported as left ventricular size is normal. Moderate concentric left ventricular hypertrophy. Ejection fraction of 60-65%. Contrast study was performed of agitated normal saline at rest and with cough. Poor acustic respond not able to determine any shunt. CT angiography of the head and neck was reported as there is plaque formation at the carotid artery bifurcation and estimated 25% stenosis at the origin of both internal carotid arteries. No evidence of carotid dissection. No significant intercranial and angiographic abnormality. There is a decrease contrast in the right vertebral artery which is suboptimally visualized. It is not clear if this is related to proximal stenosis. The possibility of the right vertebral dissection should be also considered. I spoke with the reading radiologist today (Dr. Michael) and he stated that he does not think there is vertebral dissection but rather right vertebral stenosis approximately about 90%. Hemoglobin A1c 6.7. Triglycerides 329, cholesterol is 245, LDLs 138 and HDL 41. Vitamin B-12 307. - Labs CBC & Chem 7: 03/13/21 07:23 03/14/21 06:57 Labs: Abnormal Lab Results - Last 24 Hours (Table) 03/14/21 03/14/21 03/15/21 Range/Units 16:34 20:06 05:48 POC Glucose (mg/dL) 216 H 228 H 163 H (75-99) mg/dL 03/15/21 Range/Units 13:00 POC Glucose (mg/dL) 210 H (75-99) mg/dL Assessment and Plan Assessment: * acute ischemic stroke with left leg weakness and complaint of numbness (on MRI Brain reported as infarct over right parietal/occipital but I feel more parietal region). Patient has very minimal left facial asymmetry. Stroke seems possible embolic. 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 I don't feel this is cause of current stroke. Per reading radiologist in AM on 03/14/2021 does not seem to be vertebral dissection. * History of possible seizure disorder, on oxcarbazepine. * History of Parkinson's disease * CAD * Diabetes * Hypertension * Hyperlipidemia * Osteoarthritis * Mild renal insufficiency Plan: * Vascular surgery team is consulted. I spoke with them and they did not appreciate vertebral dissection. Regarding the right vertebral stenosis, they stated they will follow-up as outpatient and will get follow-up imaging. * Patient is already on high dose Lipitor 80 mg daily. Lipids are not controlled. Consider switching to newer agents. On fenofibrate 160mg qhs. * Continue ASA 81mg daily and placed on Brilinta 90mg 1 tab bid. * Ordered an event monitor (recommend 30 days) and patient to follow-up with cardiology as outpatient. * TURNER is already completed today and pending report. If TURNER is negative then patient is clear from neurological perspective. * Continue vitamin B12 1000 g daily * We'll defer the rest of the medical management to the primary team. * Upon discharge the patient is to follow up with a neurologist within 1-2 weeks (He follows-up with Dr. Alford). He was notified to consider following-up with a stroke specialist as well. * I feel the patient will benefit from inpatient rehab. For DVT prophylaxis on subq heparin. The plan is discussed with the patient and his nurse. Edin Maldonado MD Neuro-hospitalist Time with Patient: Less than 30
[2021-03-15] MEDS: PRIMIDONE 250 MG TAB PO SCH ×2 (13:16→21:03)
[2021-03-15] MEDS: TORSEMIDE 20 MG TAB PO SCH (13:16)
--- NOTE | 2021-03-15 13:18 | P.PN ---
Subjective Progress Note Date: 03/15/21 Patient was seen and examined with no acute changes through the night. Patient still having no use of his left lower extremity. Neurology is following closely. Is currently on Brilinta and low-dose aspirin as well as atorvastatin 80 mg daily. He is undergoing physical therapy. Patient underwent a CT angiogram of the head and neck showing plaque formation at the carotid artery bifurcations an estimated 25% stenosis at the origins of both internal carotid arteries. No evidence of carotid dissection. No significant intracranial angiographic abnormality. There is decreased contrast in the right vertebral artery branches some optimally visualized is not clear if this is related to proximal stenosis. The possibility of a right vertebral dissection could also be considered. MRI of the brain shows evolving acute 13 x 5 mm infarct high right parietal occipital region just off the midline. Mild to moderate diffuse cerebral atrophy and chronic small vessel ischemic change along with old inf erior medial right cerebellar infarct. New loss of flow void distal right vertebral artery consistent with acute thrombus and/or markedly slow flow. Correlate clinically. Retained fluid bilateral mastoid air cells favored over recurrent mastoiditis correlate clinically. There is no indication for any vascular surgical intervention at this time. Objective - Vital Signs Vital signs: Vital Signs Temp 97.8 F 03/15/21 08:00 Pulse 99 03/15/21 11:44 Resp 16 03/15/21 11:44 BP 137/63 03/15/21 11:44 Pulse Ox 96 03/15/21 11:44 Intake & Output 03/14/21 03/15/21 03/15/21 18:59 06:59 18:59 Intake Total 480 340 Balance 480 340 Weight 79.5 kg Intake: IV 100 Oral 480 240 Other: Voiding Method Diaper # Voids 1 1 1 - Exam General appearance: The patient is alert, oriented, ears in no acute distress. HET: Head is normocephalic and atraumatic. Pupils are equal and reactive. Neck: Supple without lymphadenopathy. Trachea midline. Extremities: Normal skin color and turgor. No cyanosis, rash, ulceration, clubbing, or edema. Neurological: Patient alert and oriented 3. No no focal deficits. Left lower extremity weakness. - Labs CBC & Chem 7: 03/13/21 07:23 03/14/21 06:57 Labs: Abnormal Lab Results - Last 24 Hours (Table) 03/14/21 03/14/21 03/15/21 Range/Units 16:34 20:06 05:48 POC Glucose (mg/dL) 216 H 228 H 163 H (75-99) mg/dL 03/15/21 Range/Units 13:00 POC Glucose (mg/dL) 210 H (75-99) mg/dL Assessment and Plan Assessment: 1. Carotid stenosis, 25% bilateral ICA stenosis per CTA 2. Left lower extremity weakness 3. Also flow distal right vertebral artery consistent with possible acute thrombus/or slow flow per MRI and CTA 4. Evolving acute 13 x 5 mm infarct high right parieto-occipital region just off midline. 5. Previous history of CVA with residual left-sided weakness 6. History of coronary artery disease status post stenting 7. History of diabetes mellitus 8. History of chronic kidney disease 9. History of hypertension and hyperlipidemia Plan: 1. Antiplatelet therapy per recommendations from neurology, continue high-dose statin 2. CT angiogram head and neck and MRI reviewed 3. There is no indication for any vascular surgical intervention at this time 4. Patient is cleared for discharge from vascular surgery Recommend outpatient follow-up for carotid surveillance The impression and plan of care has been dictated as directed. Dr. Hernandez I performed a history and examination of this patient, discussed the same with the dictator. I agree with the dictator's note ,documented as a scribe. Any additional findings or plans will be noted.
[2021-03-15] MEDS: ISOSORBIDE MONONITRATE ER 30 MG TAB.ER.24H PO SCH (13:22)
[2021-03-15 16:13] LABS: Glucose,Whole Blood 244 mg/dL (75-99)
--- NOTE | 2021-03-15 16:17 | P.PN ---
Subjective Progress Note Date: 03/15/21 Patient continues to have left leg weakness. He isn't currently awaiting TURNER procedure. If this is negative he will be cleared for outpatient Objective - Vital Signs Vital signs: Vital Signs Temp 97.8 F 03/15/21 08:00 Pulse 106 H 03/15/21 12:25 Resp 18 03/15/21 12:00 BP 167/76 03/15/21 12:25 Pulse Ox 96 03/15/21 12:00 Intake & Output 03/14/21 03/15/21 03/15/21 18:59 06:59 18:59 Intake Total 480 340 Balance 480 340 Weight 79.5 kg Intake: IV 100 Oral 480 240 Other: Voiding Method Diaper # Voids 1 1 1 - Exam GENERAL:sitting up in bed, alert and oriented x3, not in any acute distress. HEENT: Pupils are round and equally reacting to light. EOMI. No conjunctival pallor. Normocephalic, atraumatic. CARDIOVASCULAR: S1 and S2 present. No murmurs, rubs, or gallops. PULMONARY:CTA, Bilateral bases diminished ABDOMEN: Soft, nontender, nondistended, normoactive bowel sounds. No palpable organomegaly. EXTREMITIES: No cyanosis, clubbing, or pedal edema. NEUROLOGICAL: Left lower extremity weakness present this morning, alert and oriented 3 SKIN: Warm and dry, No rashes. - Labs CBC & Chem 7: 03/13/21 07:23 03/14/21 06:57 Labs: Abnormal Lab Results - Last 24 Hours (Table) 03/14/21 03/14/21 03/15/21 Range/Units 16:34 20:06 05:48 POC Glucose (mg/dL) 216 H 228 H 163 H (75-99) mg/dL 03/15/21 Range/Units 13:00 POC Glucose (mg/dL) 210 H (75-99) mg/dL Assessment and Plan (1) Dehydration Current Visit: Yes Status: Acute Code(s): E86.0 - DEHYDRATION SNOMED Code(s): 24950911 (2) Fall Current Visit: Yes Status: Acute Code(s): W19.XXXA - UNSPECIFIED FALL, INITIAL ENCOUNTER SNOMED Code(s): 5338108 (3) CVA (cerebral vascular accident) Current Visit: Yes Status: Chronic Code(s): I63.9 - CEREBRAL INFARCTION, UNSPECIFIED SNOMED Code(s): 783998107 (4) PADMINI (acute kidney injury) Current Visit: No Status: Acute Code(s): N17.9 - ACUTE KIDNEY FAILURE, UNSPECIFIED SNOMED Code(s): 72114107 (5) Altered mental status Current Visit: No Status: Acute Code(s): R41.82 - ALTERED MENTAL STATUS, UNSPECIFIED SNOMED Code(s): 993247047 (6) Diabetes Current Visit: No Status: Chronic Code(s): E11.9 - TYPE 2 DIABETES MELLITUS WITHOUT COMPLICATIONS SNOMED Code(s): 81079176 (7) HTN (hypertension) Current Visit: No Status: Chronic Code(s): I10 - ESSENTIAL (PRIMARY) HYPERTENSION SNOMED Code(s): 69583860 (8) History of stroke Current Visit: No Status: Chronic Code(s): Z86.73 - PRSNL HX OF TIA (TIA), AND CEREB INFRC W/O RESID DEFICITS SNOMED Code(s): 131850034 (9) Hyperlipemia Current Visit: No Status: Chronic Code(s): E78.5 - HYPERLIPIDEMIA, UNSPECIFIED SNOMED Code(s): 16853747 Plan: Continue to follow patient's progress. We will need subacute rehab post stroke. Will be cleared by neurology if TURNER is negative. He'll have follow-up with Dr. Alford after rehabilitation
[2021-03-15] MEDS: SODIUM CHLORIDE 0.9% 1,000 ML IV SCH (18:37)
[2021-03-15 19:51] LABS: Glucose,Whole Blood 238 mg/dL (75-99)
[2021-03-15] MEDS: PANTOPRAZOLE 40 MG TABLET PO SCH (21:01)
[2021-03-15] MEDS: ATORVASTATIN 80 MG TAB PO SCH (21:01)
[2021-03-15] MEDS: DONEPEZIL 10 MG TAB PO SCH (21:01)
[2021-03-15] MEDS: FENOFIBRATE 160 MG TAB PO SCH (21:03)
[2021-03-16 06:12] LABS: Glucose,Whole Blood 228 mg/dL (75-99)
[2021-03-16] MEDS: INSULIN ASPART (NovoLOG) 100 UNIT/ML VIAL SQ SCH ×3 (06:30→17:27)
--- NOTE | 2021-03-16 07:06 | P.PN ---
Progress Note - Text Patient approved for reahb, awaiting approval from insurance.
[2021-03-16] MEDS: CYANOCOBALAMIN 500 MCG TAB PO SCH (09:15)
[2021-03-16] MEDS: GABAPENTIN 400 MG CAP PO SCH (09:15)
[2021-03-16] MEDS: METOPROLOL TARTRATE 25 MG TAB PO SCH (09:16)
[2021-03-16] MEDS: ISOSORBIDE MONONITRATE ER 30 MG TAB.ER.24H PO SCH (09:16)
[2021-03-16] MEDS: HEPARIN SODIUM,PORCINE/PF 5,000 UNIT/0.5 ML SYRINGE SQ SCH (09:16)
[2021-03-16] MEDS: ESCITALOPRAM 10 MG TAB PO SCH (09:16)
[2021-03-16] MEDS: amLODIPine 5 MG TAB PO SCH (09:16)
[2021-03-16] MEDS: MEMANTINE 10 MG TAB PO SCH (09:16)
[2021-03-16] MEDS: TICAGRELOR 90 MG TAB PO SCH (09:16)
[2021-03-16] MEDS: MAGNESIUM OXIDE 400 MG TAB PO SCH (09:16)
[2021-03-16] MEDS: ASPIRIN 81 MG PO SCH (09:16)
[2021-03-16] MEDS: TORSEMIDE 20 MG TAB PO SCH (09:17)
[2021-03-16] MEDS: OXcarbazepine 300 MG TAB PO SCH (09:17)
[2021-03-16 10:22] VITALS: BMI 25.9
[2021-03-16 11:49] LABS: Glucose,Whole Blood 220 mg/dL (75-99)
--- NOTE | 2021-03-16 11:51 | PN ---
PROGRESS NOTE Mr. Paez is a gentleman history of CAD, prior PCI, and also came in with a history of CVA, acute, with left lower extremity weakness. Left upper extremity strength has come back. He had a transesophageal echo which did not reveal any PFO or thrombus. He is hemodynamically stable, resting well. Blood pressure control is optimal. No JVD or carotid bruit. S1-S2 heard normally. Short systolic murmur is audible. Lungs reveal decent air entry. Abdomen is soft. Lower extremities reveal diminished pulses. Central nervous system revealed left lower extremity weakness. The rest of the physical exam is unchanged. From a cardiac standpoint, no further intervention. He will be followed up by Dr. Pickens upon discharge. Await further input from Neurology. MMODL / IJN: [id number] /
--- NOTE | 2021-03-16 12:32 | P.DS ---
Providers Date of admission: 03/11/21 18:15 Expected date of discharge: 03/16/21 Attending physician: Cedric Gold Consults: 03/11/21 18:16 Consult Physician Routine Consulting Provider: Mariel Guaman Consult Reason/Comments: History of CVA, left-sided leg weakness Do you want consulting provider notified?: Yes 03/13/21 15:18 Consult Physician Routine Consulting Provider: Anthony Coyne Consult Reason/Comments: eval for inpatient rehab Do you want consulting provider notified?: Yes 03/14/21 11:51 Consult Physician Routine Consulting Provider: Sonny Henry Consult Reason/Comments: TURNER r/t Recurrent strokes Do you want consulting provider notified?: Yes Primary care physician: Cedric Gold - Discharge Diagnosis(es) (1) Dehydration Current Visit: Yes Status: Acute (2) Fall Current Visit: Yes Status: Acute (3) CVA (cerebral vascular accident) Current Visit: Yes Status: Chronic (4) PADMINI (acute kidney injury) Current Visit: No Status: Acute (5) Altered mental status Current Visit: No Status: Acute (6) Diabetes Current Visit: No Status: Chronic (7) HTN (hypertension) Current Visit: No Status: Chronic (8) History of stroke Current Visit: No Status: Chronic (9) Hyperlipemia Current Visit: No Status: Chronic Hospital Course: Patient was seen and examined with no acute changes through the night. Patient still having no use of his left lower extremity. Neurology is following closely. Is currently on Brilinta and low-dose aspirin as well as atorvastatin 80 mg daily. He is undergoing physical therapy. Patient underwent a CT angiogram of the head and neck showing plaque formation at the carotid artery bifurcations an estimated 25% stenosis at the origins of both internal carotid arteries. No evidence of carotid dissection. No significant intracranial angiographic abnormality. There is decreased contrast in the right vertebral artery branches some optimally visualized is not clear if this is related to proximal stenosis. The possibility of a right vertebral dissection could also be considered. MRI of the brain shows evolving acute 13 x 5 mm infarct high right parietal occipital region just off the midline. Mild to moderate diffuse cerebral atrophy and chronic small vessel ischemic change along with old inferior medial right cerebellar infarct. Patient cleared for inpt rehab today at [facility] per Dr Coyne. Patient Condition at Discharge: Fair Plan - Discharge Summary New Discharge Prescriptions: New Ticagrelor [Brilinta] 90 mg PO BID tab Cyanocobalamin [Vitamin B-12] 1,000 mcg PO DAILY tab Continue Aspirin 81 mg PO DAILY Atorvastatin Calcium [Lipitor] 80 mg PO HS Torsemide [Demadex] 5 mg PO DAILY PRN PRN Reason: Edema Magnesium Oxide 400 mg PO DAILY rOPINIRole HCL [Requip] 0.25 mg PO BID Thiamine [Vitamin B-1] 100 mg PO DAILY@1200 Escitalopram [Lexapro] 10 mg PO DAILY Prasugrel [Effient] 10 mg PO DAILY Isosorbide Mononitrate ER [Imdur] 30 mg PO DAILY amLODIPine [Norvasc] 5 mg PO DAILY Fenofibrate Nanocrystallized [Fenofibrate] 145 mg PO HS Nitroglycerin Sl Tabs [Nitrostat] 0.4 mg SL Q5M PRN PRN Reason: Chest Pain OXcarbazepine [Trileptal] 300 mg PO BID Metoprolol Tartrate [Lopressor] 25 mg PO BID Primidone [Mysoline] 250 mg PO HS@2100 Primidone [Mysoline] 125 mg PO DAILY@1400 Pantoprazole [Protonix] 40 mg PO HS Ascorbic Acid [Vitamin C] 1,000 mg PO DAILY@1200 Donepezil [Aricept] 10 mg PO HS@2100 INSULIN LISPRO (For Pump) [humaLOG (For Pump)] 0.01 units SQ-PUMP CONTINUOUS Ergocalciferol [Vitamin D2 (1250 Mcg = 75695 Iu)] 1,250 mcg PO Q30D Folic Acid 1 mg PO DAILY@1200 Memantine [Namenda] 10 mg PO BID Multivitamins, Thera [Multivitamin (formulary)] 1 tab PO DAILY@1200 Gabapentin [Neurontin] 400 mg PO BID Dapagliflozin Propanediol [Farxiga] 5 mg PO DAILY Discharge Medication List Aspirin 81 mg PO DAILY 01/12/15 [History] Atorvastatin Calcium [Lipitor] 80 mg PO HS 07/30/17 [History] Torsemide [Demadex] 5 mg PO DAILY PRN 02/20/18 [History] Magnesium Oxide 400 mg PO DAILY 12/01/18 [History] Escitalopram [Lexapro] 10 mg PO DAILY 01/06/19 [History] Thiamine [Vitamin B-1] 100 mg PO DAILY@1200 01/06/19 [History] rOPINIRole HCL [Requip] 0.25 mg PO BID 01/06/19 [History] Isosorbide Mononitrate ER [Imdur] 30 mg PO DAILY 04/02/19 [History] Prasugrel [Effient] 10 mg PO DAILY 04/02/19 [History] Fenofibrate Nanocrystallized [Fenofibrate] 145 mg PO HS 06/13/20 [History] Nitroglycerin Sl Tabs [Nitrostat] 0.4 mg SL Q5M PRN 06/13/20 [History] amLODIPine [Norvasc] 5 mg PO DAILY 06/13/20 [History] Ascorbic Acid [Vitamin C] 1,000 mg PO DAILY@1200 07/03/20 [History] Donepezil [Aricept] 10 mg PO HS@2100 07/03/20 [History] Metoprolol Tartrate [Lopressor] 25 mg PO BID 07/03/20 [History] OXcarbazepine [Trileptal] 300 mg PO BID 07/03/20 [History] Pantoprazole [Protonix] 40 mg PO HS 07/03/20 [History] Primidone [Mysoline] 125 mg PO DAILY@1400 07/03/20 [History] Primidone [Mysoline] 250 mg PO HS@2100 07/03/20 [History] Gabapentin [Neurontin] 400 mg PO BID 01/24/21 [History] INSULIN LISPRO (For Pump) [humaLOG (For Pump)] 0.01 units SQ-PUMP CONTINUOUS 01/24/21 [History] Dapagliflozin Propanediol [Farxiga] 5 mg PO DAILY 03/11/21 [History] Ergocalciferol [Vitamin D2 (1250 Mcg = 65600 Iu)] 1,250 mcg PO Q30D 03/11/21 [History] Folic Acid 1 mg PO DAILY@1200 03/11/21 [History] Memantine [Namenda] 10 mg PO BID 03/11/21 [History] Multivitamins, Thera [Multivitamin (formulary)] 1 tab PO DAILY@1200 03/11/21 [History] Cyanocobalamin [Vitamin B-12] 1,000 mcg PO DAILY tab 03/16/21 [Rx] Ticagrelor [Brilinta] 90 mg PO BID tab 03/16/21 [Rx] Follow up Appointment(s)/Referral(s): Ananya Hernandez DO [STAFF PHYSICIAN] - 1 Week Glo Alford MD [Medical Doctor] - 1 Week Mary Pickens MD [STAFF PHYSICIAN] - 2 Weeks Cedric Gold DO [Primary Care Provider] - 1 Week Patient Instructions/Handouts: Dehydration (DC), Ischemic Stroke (DC) Activity/Diet/Wound Care/Special Instructions: CVA Call your physician with any worsening symptoms of stroke such as, increased weakness, new numbness or tingling, mental status changes, visual changes or new loss of sensation. Stroke prevention methods include lowering cholesterol, thinning your blood, preventing high blood pressure, keeping tight control of your diabetes, increasing exercise/activity, smoking cessation and alcohol cessation. Warning signs of a stroke: The word F.A.S.T can help you remember and recognize the signs of a stroke F= Face: One side of your face droops A=Arm: One arm starts to drop when raised, or loss of function on one side S=Speech: Speech that is slurred or abnormal T=Time: TIME IS BRAIN. A stroke is a medical emergency and a person that is having a stroke needs to be seen immediately. Early treatment can reduce the long-term effects of a stroke. Discharge Disposition: TRANSFER TO SNF/ECF
[2021-03-16 12:41] VITALS: BP 125/62; PULSE 68; RESP 22; TEMP 97.9
[2021-03-16] MEDS: ASCORBIC ACID 500 MG TAB PO SCH (12:41)
[2021-03-16] MEDS: THIAMINE 100 MG TAB PO SCH (12:41)
[2021-03-16] MEDS: MULTIVITAMINS, THERA 1 EACH TAB PO SCH (12:41)
[2021-03-16] MEDS: FOLIC ACID 1 MG TAB PO SCH (12:41)
[2021-03-16 16:56] LABS: Glucose,Whole Blood 268 mg/dL (75-99)
[2021-03-16] MEDS: PRIMIDONE 250 MG TAB PO SCH (17:27)
--- NOTE | 2021-03-17 08:13 | P.TEE ---
Date of Procedure: 03/15/21 Preoperative Diagnosis: CVA, rule out Cardec source of emboli Postoperative Diagnosis: No evidence of cardiac source of emboli on the study Procedure(s) Performed: TURNER Description of Procedure(s): INDICATION: Rule out cardiac source of emboli CONSENT:. Informed verbal consent was obtained from the patient PROCEDURE: Patient was brought to the lab in a fasting state. He was prepped and draped in the usual fashion. The throat was sprayed with his Hurricaine. Patient was given IV sedation with 2 mg of Versed and 50 mics of fentanyl. A lubricated Omni probe was introduced into the oropharynx and Versed and was advanced into the esophagus. Multiple views were obtained. Saline contrast bubble study was done. Color, pulsed and continuous Doppler studies were performed.. Patient tolerated the procedure well FINDINGS: The aortic valve is tricuspid with normal functioning. No Sigmund stenosis or regurgitation noted. The mitral valve showed mild 1-2+ regurgitation. Otherwise seemed to be normal structurally. The tricuspid valve appeared within normal. The left atrial appendage is free of any clot. The interatrial septum is intact without any spontaneous shunt. Saline contrast bubble injection did not reveal any crossing of bubbles. The atrial sizes are normal. Ventricular size and normal with normal function. Aorta appeared to be free of any significant plaque. IMPRESSION: No cardiac source of embolism noted on the study. PLAN: Continue medical therapy. Look for other causes of CVA
[2021-03-30] MEDS ORDERED: ERGOCALCIFEROL 1,250 MCG (50,000 IU) CAPSULE PO SCH (09:00)
== END 2021-03-16 18:24 | DRG 65 ==
LOC: EC 14:52 → 3SCARD 18:15
PROVIDERS: ADMIT Family Medicine; ATTEND Family Medicine
PROC: B246ZZ4 Ultrasonography of Right and Left Heart, Transesophageal (ICD-10-PCS; principal; 2021-03-15 14:30)
DX: I63.19 Cerebral infarction due to embolism of other precerebral artery (principal); I69.354 Hemiplegia and hemiparesis following cerebral infarction affecting left non-dominant side; N17.9 Acute kidney failure, unspecified; E11.22 Type 2 diabetes mellitus with diabetic chronic kidney disease; E11.42 Type 2 diabetes mellitus with diabetic polyneuropathy; E66.9 Obesity, unspecified; E78.5 Hyperlipidemia, unspecified; E86.0 Dehydration; F01.50 Vascular dementia, unspecified severity, without behavioral disturbance, psychotic disturbance, mood disturbance, and anxiety; F32.9 Major depressive disorder, single episode, unspecified; F40.240 Claustrophobia; G20 Parkinson's disease; G40.909 Epilepsy, unspecified, not intractable, without status epilepticus; H74.93 Unspecified disorder of middle ear and mastoid, bilateral; I12.9 Hypertensive chronic kidney disease with stage 1 through stage 4 chronic kidney disease, or unspecified chronic kidney disease; I25.10 Atherosclerotic heart disease of native coronary artery without angina pectoris; I25.2 Old myocardial infarction; J44.9 Chronic obstructive pulmonary disease, unspecified; M47.9 Spondylosis, unspecified; N18.30 Chronic kidney disease, stage 3 unspecified; Z20.822 Contact with and (suspected) exposure to COVID-19; Z68.36 Body mass index [BMI] 36.0-36.9, adult; Z85.46 Personal history of malignant neoplasm of prostate; D72.810 Lymphocytopenia; W19.XXXA Unspecified fall, initial encounter; M48.07 Spinal stenosis, lumbosacral region; R29.6 Repeated falls; Y92.013 Bedroom of single-family (private) house as the place of occurrence of the external cause; Z79.02 Long term (current) use of antithrombotics/antiplatelets; Z79.4 Long term (current) use of insulin; Z79.82 Long term (current) use of aspirin; Z96.41 Presence of insulin pump (external) (internal); Z80.52 Family history of malignant neoplasm of bladder; Z79.899 Other long term (current) drug therapy; Z87.01 Personal history of pneumonia (recurrent); Z87.442 Personal history of urinary calculi; Z87.891 Personal history of nicotine dependence; Z92.3 Personal history of irradiation; Z95.5 Presence of coronary angioplasty implant and graft; Z98.42 Cataract extraction status, left eye; Z98.41 Cataract extraction status, right eye; Z96.1 Presence of intraocular lens; Z80.49 Family history of malignant neoplasm of other genital organs; Z82.0 Family history of epilepsy and other diseases of the nervous system; Z81.8 Family history of other mental and behavioral disorders
CPT/HCPCS: 36415; 70450; 70496; 70498; 70551; 71045; 72125; 80048; 80053; 80061; 81003; 82550; 82607; 83036; 83735; 84484; 85025; 87635; 93005; 93306; 93312; 93320; 93325; 93880; 96374; 99285

== ENCOUNTER 2021-04-19 14:15 | Observation (INO) | payer MEDICARE ==
[2021-04-19] MEDS ORDERED: NITROGLYCERIN OINT 1 INCH/GM PACKET TOPICAL STA (14:39)
[2021-04-19] MEDS ORDERED: ASPIRIN 81 MG PO STA (14:39)
--- NOTE | 2021-04-19 14:42 | ED ---
General Adult HPI - General Chief complaint: Chest Pain Stated complaint: Chest Pain Time Seen by Provider: 04/19/21 14:23 Source: patient, EMS, RN notes reviewed Mode of arrival: EMS Limitations: no limitations - History of Present Illness Initial comments: Patient is a pleasant 70-year-old male presenting to the emergency Department with chest discomfort. Onset of symptoms was prior to arrival. Symptoms resolved with nitroglycerin. Patient states discomfort felt like pressure. Patient had some associated dyspnea. Patient does have history of similar symptoms previously and has had 3 or 4 previous heart attacks. No leg pain or leg swelling. Patient did have a stroke not long ago and is in rehab secondary to that. Patient has left-sided weakness. No fevers. No leg pain or leg swelling. - Related Data Home Medications Medication Instructions Recorded Confirmed Aspirin 81 mg PO DAILY@1700 01/12/15 04/19/21 Atorvastatin Calcium [Lipitor] 80 mg PO HS@2100 07/30/17 04/19/21 Torsemide [Demadex] 5 mg PO DAILY PRN 02/20/18 04/19/21 Magnesium Oxide 400 mg PO DAILY@1700 12/01/18 04/19/21 Thiamine [Vitamin B-1] 100 mg PO DAILY@1700 01/06/19 04/19/21 rOPINIRole HCL [Requip] 0.25 mg PO BID@0800,17001/06/19 04/19/21 Isosorbide Mononitrate ER [Imdur] 30 mg PO DAILY@0800 04/02/19 04/19/21 Prasugrel [Effient] 10 mg PO DAILY@0800 04/02/19 04/19/21 Fenofibrate Nanocrystallized 145 mg PO HS@209906/13/20 04/19/21 [Fenofibrate] Nitroglycerin Sl Tabs [Nitrostat] 0.4 mg SL Q5M PRN 06/13/20 04/19/21 amLODIPine [Norvasc] 5 mg PO DAILY@0800 06/13/20 04/19/21 Ascorbic Acid [Vitamin C] 1,000 mg PO DAILY@1700 07/03/20 04/19/21 Donepezil [Aricept] 10 mg PO HS@2100 07/03/20 04/19/21 Metoprolol Tartrate [Lopressor] 25 mg PO BID@0800,1700 07/03/20 04/19/21 OXcarbazepine [Trileptal] 300 mg PO BID@0800,1700 07/03/20 04/19/21 Pantoprazole [Protonix] 40 mg PO DAILY@0800 07/03/20 04/19/21 Primidone [Mysoline] 125 mg PO DAILY@1400 07/03/20 04/19/21 Primidone [Mysoline] 250 mg PO HS@2100 07/03/20 04/19/21 Gabapentin [Neurontin] 400 mg PO BID@0800,2100 01/24/21 04/19/21 Dapagliflozin Propanediol [Farxiga] 5 mg PO DAILY@0800 03/11/21 04/19/21 Ergocalciferol [Vitamin D2 (1250 1,250 mcg PO Q30D 03/11/21 04/19/21 Mcg = 56434 Iu)] Folic Acid 1 mg PO DAILY@17003/11/21 04/19/21 Multivitamins, Thera [Multivitamin 1 tab PO DAILY@17003/11/21 04/19/21 (formulary)] Acetaminophen Tab [Tylenol] 650 mg PO Q4H PRN 04/19/21 04/19/21 Calcipotriene [Dovonex] 1 applic TOPICAL BID@0800,1700 04/19/21 04/19/21 Cyanocobalamin [Vitamin B-12] 1,000 mcg PO DAILY@1700 04/19/21 04/19/21 Escitalopram Oxalate [Lexapro] 10 mg PO DAILY@0800 04/19/21 04/19/21 INSULIN LISPRO (humaLOG) [humaLOG] See Protocol SQ ACHS 04/19/21 04/19/21 Insulin Glargine [Lantus Vial] 12 unit SQ DAILY@0800 04/19/21 04/19/21 Liquacel 30 ml PO BID@0800,1700 04/19/21 04/19/21 Magic Butt Paste 1 applic TOPICAL BID 04/19/21 04/19/21 Magnesium Hydroxide [Milk of 2,400 mg PO DAILY PRN 04/19/21 04/19/21 Magnesia] Memantine [Namenda] 10 mg PO BID@0800,1700 04/19/21 04/19/21 Na Phos,M-B/Na Phos,Di-Ba [Fleet 133 ml RECTAL DAILY PRN 04/19/21 04/19/21 Adult] Polyethylene Glycol 3350 [Miralax] 17 gm PO DAILY PRN 04/19/21 04/19/21 Sennosides/Docusate Sodium [Senna 2 tab PO HS@2100 04/19/21 04/19/21 Plus 8.6-50 mg Tablet] Ticagrelor [Brilinta] 90 mg PO BID@0800,1700 04/19/21 04/19/21 Triamcinolone 0.1% Cream [Kenalog 1 applicatio TOPICAL BID@0800,1700 04/19/21 04/19/21 0.1% Cream] bisacodyL [Dulcolax] 10 mg RECTAL DAILY PRN 04/19/21 04/19/21 Allergies Allergy/AdvReac Type Severity Reaction Status Date / Time No Known Allergies Allergy Verified 04/19/21 14:51 Review of Systems ROS Statement: Those systems with pertinent positive or pertinent negative responses have been documented in the HPI. ROS Other: All systems not noted in ROS Statement are negative. Constitutional: Denies: fever Eyes: Denies: eye pain ENT: Denies: ear pain Respiratory: Reports: as per HPI. Denies: cough Cardiovascular: Reports: as per HPI, chest pain Endocrine: Denies: fatigue Gastrointestinal: Denies: abdominal pain Genitourinary: Denies: dysuria Musculoskeletal: Denies: back pain Skin: Denies: rash Neurological: Denies: weakness Past Medical History Past Medical History: Coronary Artery Disease (CAD), Cancer, Chest Pain / Angina, CVA/TIA, Dementia, Diabetes Mellitus, Hyperlipidemia, Hypertension, Myocardial Infarction (CA), Osteoarthritis (OA), Pneumonia, Renal Disease, Skin Disorder Additional Past Medical History / Comment(s): SEE DR BLEVINS'S NOTE FOR CARDIAC HX. HX OF SYNCOPAL EPISODES OF UNKNOWN CAUSE. Diabetes mellitus currently on insulin pump. SHORT TERM MEMORY LOSS. 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 COLONOCOSPY, LUMBAR EPIDURAL INJ, total 4 cardiac stents (2010 1 stent and 2014 3 stents),juventino cataracts/lens implants, colonoscopy, gold seed implants for prostate cancer. back surgery (11/2018) Past Anesthesia/Blood Transfusion Reactions: Motion Sickness Additional Past Anesthesia/Blood Transfusion Reaction / Comment(s): CLAUSTROPHOBIC Date of Last Stent Placement:: 2014 Past Psychological History: No Psychological Hx Reported, Depression Smoking Status: Former smoker Past Alcohol Use History: None Reported Past Drug Use History: None Reported - Past Family History Father Family Medical History: Cancer Additional Family Medical History / Comment(s): FATHER HAD BLADDER CANCER AND OF THIS IN HIS 40'S Mother Family Medical History: Cancer, Dementia Additional Family Medical History / Comment(s): UTERINE CANCER. Mother of dementia at the age of 89yrs. General Exam Limitations: no limitations General appearance: alert, in no apparent distress Head exam: Present: normocephalic Eye exam: Present: normal appearance Neck exam: Present: normal inspection Respiratory exam: Present: normal lung sounds bilaterally Cardiovascular Exam: Present: regular rate, normal rhythm, normal heart sounds Expanded Peripheral pulses: 2+: Radial (R), Radial (L), Dorsalis Pedis (R), Dorsalis Pedis (L) GI/Abdominal exam: Present: soft. Absent: tenderness Extremities exam: Present: normal inspection. Absent: pedal edema, calf tenderness Neurological exam: Present: alert Psychiatric exam: Present: normal affect, normal mood Skin exam: Present: normal color Course Vital Signs 04/19/21 04/19/21 14:19 15:46 Temperature 97.9 F 97.6 F Pulse Rate 73 68 Respiratory 18 16 Rate Blood Pressure 112/74 123/81 O2 Sat by Pulse 97 98 Oximetry EKG Findings - EKG Comments: EKG Findings:: Normal sinus rhythm with a rate of 71. KS 186. QRS 82. QT 380. QTC 412. Left axis. Inferior Q waves. No acute ST change. Medical Decision Making - Medical Decision Making Patient reevaluated and resting comfortably in bed. Patient and family updated on results and plan. Dr. Gold has been paged for admission covering his patient. - Lab Data Result diagrams: 04/19/21 14:53 04/19/21 14:53 Lab Results 04/19/21 04/19/21 04/19/21 Range/Units 14:53 14:53 14:53 WBC 6.4 (3.8-10.6) k/uL RBC 5.16 (4.30-5.90) m/uL Hgb 15.9 (13.0-17.5) gm/dL Hct 45.9 (39.0-53.0) % MCV 89.0 (80.0-100.0) fL MCH 30.9 (25.0-35.0) pg MCHC 34.7 (31.0-37.0) g/dL RDW 15.3 (11.5-15.5) % Plt Count 271 (150-450) k/uL MPV 7.9 Neutrophils % 82 % Lymphocytes % 10 % Monocytes % 5 % Eosinophils % 1 % Basophils % 1 % Neutrophils # 5.2 (1.3-7.7) k/uL Lymphocytes # 0.7 L (1.0-4.8) k/uL Monocytes # 0.3 (0-1.0) k/uL Eosinophils # 0.1 (0-0.7) k/uL Basophils # 0.0 (0-0.2) k/uL PT 10.2 (9.0-12.0) sec INR 0.9 (<1.2) APTT 21.8 L (22.0-30.0) sec Sodium 138 (137-145) mmol/L Potassium 4.8 (3.5-5.1) mmol/L Chloride 103 (98-107) mmol/L Carbon Dioxide 25 (22-30) mmol/L Anion Gap 10 mmol/L BUN 31 H (9-20) mg/dL Creatinine 1.58 H (0.66-1.25) mg/dL Est GFR (CKD-EPI)AfAm 51 (>60 ml/min/1.73 sqM) Est GFR (CKD-EPI)NonAf 44 (>60 ml/min/1.73 sqM) Glucose 183 H (74-99) mg/dL Calcium 10.1 (8.4-10.2) mg/dL Magnesium 2.3 (1.6-2.3) mg/dL Total Bilirubin 0.5 (0.2-1.3) mg/dL AST 24 (17-59) U/L ALT 19 (4-49) U/L Alkaline Phosphatase 83 (38-126) U/L Troponin I (0.000-0.034) ng/mL Total Protein 7.5 (6.3-8.2) g/dL Albumin 4.6 (3.5-5.0) g/dL 04/19/21 Range/Units 14:53 WBC (3.8-10.6) k/uL RBC (4.30-5.90) m/uL Hgb (13.0-17.5) gm/dL Hct (39.0-53.0) % MCV (80.0-100.0) fL MCH (25.0-35.0) pg MCHC (31.0-37.0) g/dL RDW (11.5-15.5) % Plt Count (150-450) k/uL MPV Neutrophils % % Lymphocytes % % Monocytes % % Eosinophils % % Basophils % % Neutrophils # (1.3-7.7) k/uL Lymphocytes # (1.0-4.8) k/uL Monocytes # (0-1.0) k/uL Eosinophils # (0-0.7) k/uL Basophils # (0-0.2) k/uL PT (9.0-12.0) sec INR (<1.2) APTT (22.0-30.0) sec Sodium (137-145) mmol/L Potassium (3.5-5.1) mmol/L Chloride (98-107) mmol/L Carbon Dioxide (22-30) mmol/L Anion Gap mmol/L BUN (9-20) mg/dL Creatinine (0.66-1.25) mg/dL Est GFR (CKD-EPI)AfAm (>60 ml/min/1.73 sqM) Est GFR (CKD-EPI)NonAf (>60 ml/min/1.73 sqM) Glucose (74-99) mg/dL Calcium (8.4-10.2) mg/dL Magnesium (1.6-2.3) mg/dL Total Bilirubin (0.2-1.3) mg/dL AST (17-59) U/L ALT (4-49) U/L Alkaline Phosphatase (38-126) U/L Troponin I <0.012 (0.000-0.034) ng/mL Total Protein (6.3-8.2) g/dL Albumin (3.5-5.0) g/dL - Radiology Data Radiology results: image reviewed (Chest x-ray shows mild perihilar and interstitial densities in the lower lungs. Correlate to exclude interstitial infiltrate or covid Pneumonia.) Disposition Clinical Impression: Chest pain Disposition: ADMITTED IP TO THIS HOSP Is patient prescribed a controlled substance at d/c from ED?: No Referrals: Cedric Gold DO [Primary Care Provider] - 1-2 days Decision Time: 16:59
[2021-04-19 15:05] LABS: Basophils % (A) 1 %; Eosinophils # (A) 0.1 k/uL (0-0.7); Eosinophils % (A) 1 %; HCT 45.9 % (39.0-53.0); HGB 15.9 gm/dL (13.0-17.5); Lymphocytes # (A) 0.7 k/uL (1.0-4.8); Lymphocytes % (A) 10 %; MCH 30.9 pg (25.0-35.0); MCHC 34.7 g/dL (31.0-37.0); Mean Platelet Volume 7.9; Monocytes # (A) 0.3 k/uL (0-1.0); Monocytes % (A) 5 %; Neutrophils # (A) 5.2 k/uL (1.3-7.7); Neutrophils % (A) 82 %; Platelet Count 271 k/uL (150-450); RBC 5.16 m/uL (4.30-5.90); RDW 15.3 % (11.5-15.5); WBC 6.4 k/uL (3.8-10.6)
[2021-04-19 15:12] LABS: Albumin 4.6 g/dL (3.5-5.0); Calcium 10.1 mg/dL (8.4-10.2); Magnesium 2.3 mg/dL (1.6-2.3); Potassium 4.8 mmol/L (3.5-5.1); Total Bilirubin 0.5 mg/dL (0.2-1.3); Total Protein 7.5 g/dL (6.3-8.2)
[2021-04-19 15:17] LABS: INR 0.9 (<1.2); Partial Thromboplastin Time 21.8 sec (22.0-30.0); Prothrombin Time 10.2 sec (9.0-12.0)
--- NOTE | 2021-04-19 15:44 | XR ---
EXAMINATION TYPE: XR chest 1V portable DATE OF EXAM: 04/19/2021 Comparison: 03/11/2021 Clinical History: 70-year-old male chest pain Findings: Heart upper limits of normal in size. There is streaky perihilar and mild interstitial densities mid and lower lungs. No pleural effusion. Impression: Streaky perihilar and mild interstitial densities in the mid and lower lungs. Findings could represen t areas of atelectasis. Correlate to exclude subtle interstitial infiltrate such as in the setting of COVID pneumonia.
[2021-04-19] MEDS ORDERED: NITROGLYCERIN SL TABS 0.4 MG TAB SUBLINGUAL PRN (16:59)
[2021-04-19] MEDS: NITROGLYCERIN OINT 1 INCH/GM PACKET TOPICAL SCH ×2 (17:27→23:45)
[2021-04-19] MEDS ORDERED: MAGNESIUM HYDROXIDE 2,400 MG/10 ML CUP PO PRN (20:10)
[2021-04-19] MEDS ORDERED: ACETAMINOPHEN TAB 325 MG TAB PO PRN (20:10)
[2021-04-19] MEDS ORDERED: FUROSEMIDE 10 MG TAB PO PRN (20:10)
[2021-04-19] MEDS ORDERED: polyethylene glycoL 3350 17 GM POWD.PACK PO PRN (20:10)
[2021-04-19] MEDS ORDERED: bisacodyL 10 MG SUPP RECTAL PRN (20:10)
[2021-04-19] MEDS ORDERED: ERGOCALCIFEROL 1,250 MCG (50,000 IU) CAPSULE PO SCH (20:15)
[2021-04-19 20:37] LABS: Glucose,Whole Blood 210 mg/dL (75-99)
[2021-04-19] MEDS: DONEPEZIL 10 MG TAB PO SCH (21:36)
[2021-04-19] MEDS: PRIMIDONE 250 MG TAB PO SCH (21:36)
[2021-04-19] MEDS: FENOFIBRATE 160 MG TAB PO SCH (21:36)
[2021-04-19] MEDS: ATORVASTATIN 80 MG TAB PO SCH (21:36)
[2021-04-19] MEDS: SENNOSIDES-DOCUSATE SODIUM 1 EACH TAB PO SCH (21:36)
[2021-04-19] MEDS: INSULIN ASPART (NovoLOG) 100 UNIT/ML VIAL SQ SCH (21:36)
[2021-04-19] MEDS: GABAPENTIN 400 MG CAP PO SCH (21:36)
[2021-04-20] MEDS: NITROGLYCERIN OINT 1 INCH/GM PACKET TOPICAL SCH (05:26)
[2021-04-20 06:56] LABS: Glucose,Whole Blood 150 mg/dL (75-99)
[2021-04-20] MEDS ORDERED: amLODIPine 5 MG TAB PO SCH (08:00)
[2021-04-20] MEDS ORDERED: ISOSORBIDE MONONITRATE ER 30 MG TAB.ER.24H PO SCH (08:00)
[2021-04-20] MEDS ORDERED: PRASUGREL 10 MG TAB PO SCH (08:00)
[2021-04-20] MEDS: CALCIPOTRIENE 120 GM TOPICAL SCH ×2 (08:37→16:49)
[2021-04-20] MEDS: NON FORMULARY DRUG (Dapagliflozin Propanediol [Farxiga] 5 MG Tablet) PO SCH (08:37)
[2021-04-20] MEDS: INSULIN DETEMIR (LEVEMIR) 100 UNIT/ML SYR SQ SCH (08:44)
[2021-04-20] MEDS: INSULIN ASPART (NovoLOG) 100 UNIT/ML VIAL SQ SCH ×4 (08:44→20:47)
[2021-04-20] MEDS: METOPROLOL TARTRATE 25 MG TAB PO SCH ×2 (08:46→16:54)
[2021-04-20] MEDS: GABAPENTIN 400 MG CAP PO SCH ×2 (08:46→20:47)
[2021-04-20] MEDS: PANTOPRAZOLE 40 MG TABLET PO SCH (08:46)
[2021-04-20] MEDS: ISOSORBIDE MONONITRATE ER 60 MG TAB.ER.24H PO SCH (08:48)
[2021-04-20] MEDS: ESCITALOPRAM 10 MG TAB PO SCH (08:49)
[2021-04-20] MEDS: OXcarbazepine 300 MG TAB PO SCH ×2 (08:49→16:55)
[2021-04-20] MEDS: MEMANTINE 10 MG TAB PO SCH ×2 (08:49→16:56)
[2021-04-20] MEDS: TICAGRELOR 90 MG TAB PO SCH ×2 (08:51→16:55)
[2021-04-20] MEDS ORDERED: ASPIRIN 325 MG TAB PO SCH (09:00)
[2021-04-20] MEDS: TRIAMCINOLONE 0.1% CREAM 80 GM TUBE TOPICAL SCH ×2 (09:06→16:56)
--- NOTE | 2021-04-20 09:56 | P.CRDCN ---
History of Present Illness History of present illness: HISTORY OF PRESENTING ILLNESS This is a pleasant 70-year-old male past medical history significant for Recent infarct high right parietal occipital region last admission 02/2021 with left sided residual, coronary artery disease status post PCI to the mid LAD and distal RCA in 2014 and PCI to proximal LAD in 2010, hypertension, dyslipidemia, diabetes mellitus, prior CVA. He follows in the office with Dr. Pickens. We have been asked to see in consultation for chest pain. Patient states she [facility] for rehab after his stroke in February 2021. He states yesterday he was lying in bed and had an episode of chest pressure. He states it felt as if "someone was sitting on his chest". It was nonradiating, he was not exerting himself. He had associated diaphoresis. He states the pain lasted 2-3 minutes, and that the pain resolved on its own. He no longer has chest pain. He did not have any associated nausea, shortness of breath, palpitations, lightheadedness, dizziness. He has been mostly bed-bound at [facility]. He states this pain is different from his prior MIs. DIAGNOSTICS Telemetry tracings throughout his hospitalization reveal sinus rhythm HR 70s- 80s. EKG on arrival revealed sinus mechanism HR , Q waves noted inferiorly, with nonspecific ST abnormalities inferiorly. EKG appears similar to prior Laboratory data reviewed, troponin negative 3, COVID-19 PCR negative, WBC 6.4, and 115.9, platelet's 271, sodium 138, potassium 4.8, BUN 31, serum creatinine 1.5, magnesium 2.3, Pro-BNP 36 Current daily cardiac medications include amlodipine 5 mg daily, Demadex 5 mg daily as needed for lower extremity swelling, Effient 10 mg daily, Lopressor 25 mg twice a day, Imdur 30 mg daily, aspirin 81 mg daily and atorvastatin 80 mg daily. Echocardiogram obtained 02/2021 preserved LV systolic function with ejection fraction 60-65%, mildly enlarged right ventricle TURNER 03/17/21- No cardiac source of embolism noted on the study. REVIEW OF SYSTEMS At the time of my exam: CONSTITUTIONAL: Denies fever or chills. +diaphoresis CARDIOVASCULAR:+ chest pain, Denies shortness of breath, orthopnea, PND or palpitations. RESPIRATORY: Denies cough. GASTROINTESTINAL: Denies abdominal pain, diarrhea, constipation, nausea or vomiting. MUSCULOSKELETAL: Complains of left lower extremity weakness and left arm weakness Denies myalgias. NEUROLOGIC: Denies numbness, tingling, headache or weakness. ENDOCRINE: Denies fatigue, weight change, polydipsia or polyurina. GENITOURINARY: Denies burning, hematuria or urgency with micturation. HEMATOLOGIC: Denies history of anemia or bleeding. PHYSICAL EXAMINATION Blood pressure 120/73, heart 67, afebrile maintaining oxygen saturations >92% on room air CONSTITUTIONAL: No apparent distress. HEENT: Head is normocephalic. Pupils are equal, round. Sclerae anicteric. Mucous membranes of the mouth are moist. No JVD. No carotid bruit. CHEST EXAMINATION: Lungs are clear to auscultation. No chest wall tenderness is noted on palpation or with deep breathing. HEART EXAMINATION: Regular rate and rhythm. S1, S2 heard. No murmurs, gallops or rub. ABDOMEN: Soft, nontender. EXTREMITIES: 2+ peripheral pulses, no lower extremity edema and no calf tenderness. NEUROLOGIC EXAMINATION: Patient is awake, alert and oriented x3. ASSESSMENT Chest pain, atypical, acute coronary syndrome has been ruled out History of coronary disease status post PCI of the mid LAD and distal RCA in 2014 and PCI of the proximal LAD in 2010 Type 2 diabetes Hypertension Dyslipidemia CVA, most recent last admission 02/2021 with left-sided weakness PLAN -We will increase patient's Imdur to 60mg daily -Unclear why patient is on Effient and Brilinta, we will discontinue Effient -Continue aspirin, statin, metoprolol tartrate -Recommend Physical therapy consult to get patient moving and monitor chest pain with activity -At this time we recommend adjusting patient's medications -Further recommendations based on clinical course Nurse Practitioner note has been reviewed, I agree with a documented findings and plan of care. Patient was seen and examined. Past Medical History Past Medical History: Coronary Artery Disease (CAD), Cancer, Chest Pain / Angina, CVA/TIA, Dementia, Diabetes Mellitus, Hyperlipidemia, Hypertension, Myocardial Infarction (OK), Osteoarthritis (OA), Pneumonia, Renal Disease, Skin Disorder Additional Past Medical History / Comment(s): SEE DR BLEVINS'S NOTE FOR CARDIAC HX. HX OF SYNCOPAL EPISODES OF UNKNOWN CAUSE. Diabetes mellitus currently on insulin pump. SHORT TERM MEMORY LOSS. 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 COLONOCOSPY, LUMBAR EPIDURAL INJ, total 4 cardiac stents (2010 1 stent and 2014 3 stents),juventino cataracts/lens implants, colonoscopy, gold seed implants for prostate cancer. back surgery (11/2018) Past Anesthesia/Blood Transfusion Reactions: No Reported Reaction Additional Past Anesthesia/Blood Transfusion Reaction / Comment(s): ESTEFANÍA TROPHOBIC Date of Last Stent Placement:: 2014 Past Psychological History: No Psychological Hx Reported, Depression Additional Psychological History / Comment(s): PT LIVES AT HOME WITH HIS KWAN IS INDEPENDANT WITH HIS OWN CARE. 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 SHORT TERM MEMORY LOSS. USES A WALKER. Smoking Status: Former smoker Past Alcohol Use History: None Reported Additional Past Alcohol Use History / Comment(s): STARTED SMOKING AROUND AGE 48(1998) SMOKE A PIPE OR CIGARS 2-3 times a week but quit 04/2016. Past Drug Use History: None Reported - Past Family History Father Family Medical History: Cancer Additional Family Medical History / Comment(s): FATHER HAD BLADDER CANCER AND OF THIS IN HIS 40'S Mother Family Medical History: Cancer, Dementia Additional Family Medical History / Comment(s): UTERINE CANCER. Mother of dementia at the age of 89yrs. Medications and Allergies Home Medications Medication Instructions Recorded Confirmed Type Aspirin 81 mg PO DAILY@0 01/12/15 04/19/21 History Atorvastatin Calcium [Lipitor] 80 mg PO HS@2100 07/30/17 04/19/21 History Torsemide [Demadex] 5 mg PO DAILY PRN 02/20/18 04/19/21 History Magnesium Oxide 400 mg PO DAILY@169912/01/18 04/19/21 History Thiamine [Vitamin B-1] 100 mg PO DAILY@169901/06/19 04/19/21 History rOPINIRole HCL [Requip] 0.25 mg PO BID@0800,1700 01/06/19 04/19/21 History Isosorbide Mononitrate ER [Imdur] 30 mg PO DAILY@0800 04/02/19 04/19/21 History Fenofibrate Nanocrystallized 145 mg PO HS@209906/13/20 04/19/21 History [Fenofibrate] Nitroglycerin Sl Tabs [Nitrostat] 0.4 mg SL Q5M PRN 06/13/20 04/19/21 History amLODIPine [Norvasc] 5 mg PO DAILY@0800 06/13/20 04/19/21 History Ascorbic Acid [Vitamin C] 1,000 mg PO DAILY@169907/03/20 04/19/21 History Donepezil [Aricept] 10 mg PO HS@209907/03/20 04/19/21 History Metoprolol Tartrate [Lopressor] 25 mg PO BID@0800,1700 07/03/20 04/19/21 History OXcarbazepine [Trileptal] 300 mg PO BID@0800,17007/03/20 04/19/21 History Pantoprazole [Protonix] 40 mg PO DAILY@0800 07/03/20 04/19/21 History Primidone [Mysoline] 125 mg PO DAILY@1400 07/03/20 04/19/21 History Primidone [Mysoline] 250 mg PO HS@209907/03/20 04/19/21 History Gabapentin [Neurontin] 400 mg PO BID@0800,2100 01/24/21 04/19/21 History Dapagliflozin Propanediol [Farxiga] 5 mg PO DAILY@0800 03/11/21 04/19/21 History Ergocalciferol [Vitamin D2 (1250 1,250 mcg PO Q30D 03/11/21 04/19/21 History Mcg = 06830 Iu)] Folic Acid 1 mg PO DAILY@169903/11/21 04/19/21 History Multivitamins, Thera [Multivitamin 1 tab PO DAILY@169903/11/21 04/19/21 History (formulary)] Acetaminophen Tab [Tylenol] 650 mg PO Q4H PRN 04/19/21 04/19/21 History Calcipotriene [Dovonex] 1 applic TOPICAL BID@0800,1700 04/19/21 04/19/21 History Cyanocobalamin [Vitamin B-12] 1,000 mcg PO DAILY@1700 04/19/21 04/19/21 History Escitalopram Oxalate [Lexapro] 10 mg PO DAILY@0800 04/19/21 04/19/21 History INSULIN LISPRO (humaLOG) [humaLOG] See Protocol SQ ACHS 04/19/21 04/19/21 History Insulin Glargine [Lantus Vial] 12 unit SQ DAILY@0800 04/19/21 04/19/21 History Liquacel 30 ml PO BID@0800,1700 04/19/21 04/19/21 History Magic Butt Paste 1 applic TOPICAL BID 04/19/21 04/19/21 History Magnesium Hydroxide [Milk of 2,400 mg PO DAILY PRN 04/19/21 04/19/21 History Magnesia] Memantine [Namenda] 10 mg PO BID@0800,1700 04/19/21 04/19/21 History Na Phos,M-B/Na Phos,Di-Ba [Fleet 133 ml RECTAL DAILY PRN 04/19/21 04/19/21 History Adult] Polyethylene Glycol 3350 [Miralax] 17 gm PO DAILY PRN 04/19/21 04/19/21 History Sennosides/Docusate Sodium [Senna 2 tab PO HS@2100 04/19/21 04/19/21 History Plus 8.6-50 mg Tablet] Ticagrelor [Brilinta] 90 mg PO BID@0800,1700 04/19/21 04/19/21 History Triamcinolone 0.1% Cream [Kenalog 1 applicatio TOPICAL BID@0800,1700 04/19/21 04/19/21 History 0.1% Cream] bisacodyL [Dulcolax] 10 mg RECTAL DAILY PRN 04/19/21 04/19/21 History Allergies Allergy/AdvReac Type Severity Reaction Status Date / Time No Known Allergies Allergy Verified 04/19/21 14:51 Physical Exam Vitals: Vital Signs Temp Pulse Pulse Resp BP BP Pulse Ox 04/20/21 02:00 97.8 F 78 18 127/77 96 04/19/21 19:08 98.1 F 98 18 137/82 96 11/03/21 19:07 16 04/19/21 17:24 71 18 125/72 97 04/19/21 15:46 97.6 F 68 16 123/81 98 04/19/21 14:19 97.9 F 73 18 112/74 97 Intake and Output 04/19/21 04/20/21 04/20/21 22:59 06:59 14:59 Intake Total 250 Output Total 500 Balance 250 -500 Intake: Oral 250 Output: Urine 500 Other: # Voids 1 2 Weight 113.398 kg Results 04/19/21 14:53 04/19/21 14:53 Cardiac Enzymes 04/19/21 04/19/21 04/19/21 Range/Units 14:53 14:53 17:52 AST 24 (17-59) U/L Troponin I <0.012 <0.012 (0.000-0.034) ng/mL 04/19/21 Range/Units 21:05 AST (17-59) U/L Troponin I <0.012 (0.000-0.034) ng/mL Coagulation 04/19/21 Range/Units 14:53 PT 10.2 (9.0-12.0) sec APTT 21.8 L (22.0-30.0) sec CBC 04/19/21 Range/Units 14:53 WBC 6.4 (3.8-10.6) k/uL RBC 5.16 (4.30-5.90) m/uL Hgb 15.9 (13.0-17.5) gm/dL Hct 45.9 (39.0-53.0) % Plt Count 271 (150-450) k/uL Comprehensive Metabolic Panel 04/19/21 Range/Units 14:53 Sodium 138 (137-145) mmol/L Potassium 4.8 (3.5-5.1) mmol/L Chloride 103 (98-107) mmol/L Carbon Dioxide 25 (22-30) mmol/L BUN 31 H (9-20) mg/dL Creatinine 1.58 H (0.66-1.25) mg/dL Glucose 183 H (74-99) mg/dL Calcium 10.1 (8.4-10.2) mg/dL AST 24 (17-59) U/L ALT 19 (4-49) U/L Alkaline Phosphatase 83 (38-126) U/L Total Protein 7.5 (6.3-8.2) g/dL Albumin 4.6 (3.5-5.0) g/dL Current Medications Generic Name Dose Route Start Last Admin Trade Name Freq PRN Reason Stop Dose Admin Acetaminophen 650 mg 04/19/21 20:10 Acetaminophen Tab 325 Mg Tab PO Q4H PRN Fever Amlodipine Besylate 5 mg 04/20/21 08:00 Amlodipine 5 Mg Tab PO DAILY@0800 [facility] Ascorbic Acid 1,000 mg 04/20/21 17:00 Ascorbic Acid 500 Mg Tab PO DAILY@1700 [facility] Aspirin 325 mg 04/20/21 09:00 Aspirin 325 Mg Tab PO DAILY [facility] Aspirin 81 mg 04/20/21 17:00 Aspirin 81 Mg PO DAILY@1700 [facility] Atorvastatin Calcium 80 mg 04/19/21 21:00 04/19/21 21:36 Atorvastatin 80 Mg Tab PO 80 mg HS@2100 [facility] Administration Bisacodyl 10 mg 04/19/21 20:10 Bisacodyl 10 Mg Supp RECTAL DAILY PRN Constipation Cyanocobalamin 1,000 mcg 04/20/21 17:00 Cyanocobalamin 500 Mcg Tab PO DAILY@1700 [facility] Donepezil HCl 10 mg 04/19/21 21:00 04/19/21 21:36 Donepezil 10 Mg Tab PO 10 mg HS@2100 [facility] Administration Ergocalciferol 1,250 mcg 04/19/21 20:15 04/19/21 21:36 Ergocalciferol 1,250 Mcg (50,000 Iu) Capsule PO 1,250 mcg Q30D [facility] Administration Escitalopram Oxalate 10 mg 04/20/21 08:00 Escitalopram 10 Mg Tab PO DAILY@0800 [facility] Fenofibrate 160 mg 04/19/21 21:00 04/19/21 21:36 Fenofibrate 160 Mg Tab PO 160 mg HS@2100 [facility] Administration Folic Acid 1 mg 04/20/21 17:00 Folic Acid 1 Mg Tab PO DAILY@1700 [facility] Furosemide 10 mg 04/19/21 20:10 Furosemide 10 Mg Tab PO DAILY PRN Edema Gabapentin 400 mg 04/19/21 21:00 04/19/21 21:36 Gabapentin 400 Mg Cap PO 400 mg BID@0800,2100 [facility] Administration Insulin Aspart 0 unit 04/19/21 21:00 04/19/21 21:36 Insulin Aspart (Novolog) 100 Unit/Ml Vial SQ 4 unit ACHS [facility] Administration Protocol Insulin Detemir 12 unit 04/20/21 08:00 Insulin Detemir (Levemir) 100 Unit/Ml Syr SQ DAILY@0800 [facility] Isosorbide Mononitrate 30 mg 04/20/21 08:00 Isosorbide Mononitrate Er 30 Mg Tab.Er.24h PO DAILY@0800 [facility] Magnesium Hydroxide 2,400 mg 04/19/21 20:10 Magnesium Hydroxide 2,400 Mg/10 Ml Cup PO DAILY PRN Constipation Magnesium Oxide 400 mg 04/20/21 17:00 Magnesium Oxide 400 Mg Tab PO DAILY@1700 [facility] Memantine 10 mg 04/20/21 08:00 Memantine 10 Mg Tab PO BID@0800,1700 [facility] Metoprolol Tartrate 25 mg 04/20/21 08:00 Metoprolol Tartrate 25 Mg Tab PO BID@0800,1700 [facility] Multivitamins 1 each 04/20/21 17:00 Multivitamins, Thera 1 Each Tab PO DAILY@1700 [facility] Nitroglycerin 0.4 mg 04/19/21 16:59 Nitroglycerin Sl Tabs 0.4 Mg Tab SUBLINGUAL Q5M PRN Chest Pain Nitroglycerin 1 inch 04/19/21 18:00 04/20/21 05:26 Nitroglycerin Oint 1 Inch/Gm Packet TOPICAL Not Given Q6HR [facility] Non-Formulary Medication 1 applic 04/20/21 08:00 Calcipotriene [Dovonex] TOPICAL BID@0800,1700 [facility] Non-Formulary Medication 5 mg 04/20/21 08:00 Dapagliflozin Propanediol [Farxiga] PO DAILY@0800 [facility] Oxcarbazepine 300 mg 04/20/21 08:00 Oxcarbazepine 300 Mg Tab PO BID@0800,1700 [facility] Pantoprazole Sodium 40 mg 04/20/21 07:30 Pantoprazole 40 Mg Tablet PO DAILY@0730 [facility] Polyethylene Glycol 17 gm 04/19/21 20:10 Polyethylene Glycol 3350 17 Gm Powd.Pack PO DAILY PRN Constipation Prasugrel 10 mg 04/20/21 08:00 Prasugrel 10 Mg Tab PO DAILY@0800 [facility] Primidone 125 mg 04/20/21 14:00 Primidone 25 Mg Tab PO DAILY@1400 [facility] Primidone 250 mg 04/19/21 21:00 04/19/21 21:36 Primidone 250 Mg Tab PO 250 mg HS@2100 [facility] Administration Ropinirole HCl 0.25 mg 04/20/21 08:00 Ropinirole Hcl 0.25 Mg Tab PO BID@0800,1700 [facility] Senna/Docusate Sodium 2 each 04/19/21 21:00 04/19/21 21:36 Sennosides-Docusate Sodium 1 Each Tab PO 2 each HS@2100 [facility] Administration Thiamine HCl 100 mg 04/20/21 17:00 Thiamine 100 Mg Tab PO DAILY@1700 [facility] Ticagrelor 90 mg 04/20/21 08:00 Ticagrelor 90 Mg Tab PO BID@0800,1700 [facility] Triamcinolone Acetonide 1 applic 04/20/21 08:00 Triamcinolone 0.1% Cream 80 Gm Tube TOPICAL BID@0800,1700 [facility] Protocol Intake and Output 04/19/21 04/20/21 04/20/21 22:59 06:59 14:59 Intake Total 250 Output Total 500 Balance 250 -500 Intake: Oral 250 Output: Urine 500 Other: # Voids 1 2 Weight 113.398 kg 04/19/21 14:53 04/19/21 14:53
[2021-04-20 12:16] LABS: Glucose,Whole Blood 172 mg/dL (75-99)
[2021-04-20] MEDS: NON FORMULARY DRUG (Magic Butt Paste 1 APPLIC) TOPICAL SCH ×2 (13:35→20:47)
[2021-04-20] MEDS ORDERED: PRIMIDONE 25 MG TAB PO SCH (14:00)
--- NOTE | 2021-04-20 15:01 | P.HPIM ---
History of Present Illness H&P Date: 04/20/21 Chief Complaint: Chest pain History and Physical and Discharge Summary: This is a 70-year-old gentleman presented to the ER from [facility] subacute rehab. with complaints of nonradiating chest pressure accompanied by shortness of breath at rest, lasting about 3 minutes, spontaneously resolved in a patient who had a recent acute CVA March 12 2021. Denies nausea vomiting or diarrhea. Denies numbness, tingling or muscle strength loss with no worsened left leg weakness.EKG reportedly normal sinus rhythm, nonspecific ST abnormalities inferiorly-reported as similar to prior EKG per cardiology review. Troponins negative 3. Denies any lightheadedness dizziness or focal deficits. Hematology, coagulation, chemistry within normal limits with the exception of BUN and creatinine 31, 1.58, near baseline, with blood sugars 170s to 200. Echo from March 07 reported preserved LV function with EF 60-65%,TURNER of 03/17/2021 reported no cardiac source of embolism Evaluated by cardiology, patient has had no further chest pain since admission and considering patient is a recent acute CVA of about 4 weeks, decision has been made for conservative treatment pending patient remains chest pain-free with ambulation. Imdur increased, Effient discontinued as per cardiology. Review of Systems ROS Statement: Those systems with pertinent positive or pertinent negative responses have been documented in the HPI. ROS Other: All systems not noted in ROS Statement are negative. Past Medical History Past Medical History: Coronary Artery Disease (CAD), Cancer, Chest Pain / Angina, CVA/TIA, Dementia, Diabetes Mellitus, Hyperlipidemia, Hypertension, Myocardial Infarction ([place]), Osteoarthritis (OA), Pneumonia, Renal Disease, Skin Disorder Additional Past Medical History / Comment(s): SEE DR BLEVINS'S NOTE FOR CARDIAC HX. HX OF SYNCOPAL EPISODES OF UNKNOWN CAUSE. Diabetes mellitus currently on insulin pump. SHORT TERM MEMORY LOSS. 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 COLONOCOSPY, LUMBAR EPIDURAL INJ, total 4 cardiac stents (2010 1 stent and 2014 3 stents),juventino cataracts/lens implants, colonoscopy, gold seed implants for prostate cancer. back surgery (11/2018) Past Anesthesia/Blood Transfusion Reactions: No Reported Reaction Additional Past Anesthesia/Blood Transfusion Reaction / Comment(s): CLAUSTROPHOBIC Date of Last Stent Placement:: 2014 Past Psychological History: No Psychological Hx Reported, Depression Additional Psychological History / Comment(s): PT LIVES AT HOME WITH HIS KWAN IS INDEPENDANT WITH HIS OWN CARE. 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 SHORT TERM MEMORY LOSS. USES A WALKER. Smoking Status: Former smoker Past Alcohol Use History: None Reported Additional Past Alcohol Use History / Comment(s): STARTED SMOKING AROUND AGE 4 8(1998) SMOKE A PIPE OR CIGARS 2-3 times a week but quit 04/2016. Past Drug Use History: None Reported - Past Family History Father Family Medical History: Cancer Additional Family Medical History / Comment(s): FATHER HAD BLADDER CANCER AND OF THIS IN HIS 40'S Mother Family Medical History: Cancer, Dementia Additional Family Medical History / Comment(s): UTERINE CANCER. Mother of dementia at the age of 89yrs. Medications and Allergies Home Medications Medication Instructions Recorded Confirmed Type Aspirin 81 mg PO DAILY@1700 01/12/15 04/19/21 History Atorvastatin Calcium [Lipitor] 80 mg PO HS@2100 07/30/17 04/19/21 History Torsemide [Demadex] 5 mg PO DAILY PRN 02/20/18 04/19/21 History Magnesium Oxide 400 mg PO DAILY@1700 12/01/18 04/19/21 History Thiamine [Vitamin B-1] 100 mg PO DAILY@1700 01/06/19 04/19/21 History rOPINIRole HCL [Requip] 0.25 mg PO BID@0800,1700 01/06/19 04/19/21 History Fenofibrate Nanocrystallized 145 mg PO HS@2100 06/13/20 04/19/21 History [Fenofibrate] Nitroglycerin Sl Tabs [Nitrostat] 0.4 mg SL Q5M PRN 06/13/20 04/19/21 History amLODIPine [Norvasc] 5 mg PO DAILY@0800 06/13/20 04/19/21 History Ascorbic Acid [Vitamin C] 1,000 mg PO DAILY@1700 07/03/20 04/19/21 History Donepezil [Aricept] 10 mg PO HS@2100 07/03/20 04/19/21 History Metoprolol Tartrate [Lopressor] 25 mg PO BID@0800,1700 07/03/20 04/19/21 History OXcarbazepine [Trileptal] 300 mg PO BID@0800,1700 07/03/20 04/19/21 History Pantoprazole [Protonix] 40 mg PO DAILY@0800 07/03/20 04/19/21 History Primidone [Mysoline] 125 mg PO DAILY@1400 07/03/20 04/19/21 History Primidone [Mysoline] 250 mg PO HS@209907/03/20 04/19/21 History Dapagliflozin Propanediol [Farxiga] 5 mg PO DAILY@0800 03/11/21 04/19/21 History Ergocalciferol [Vitamin D2 (1250 1,250 mcg PO Q30D 03/11/21 04/19/21 History Mcg = 30182 Iu)] Folic Acid 1 mg PO DAILY@1700 03/11/21 04/19/21 History Multivitamins, Thera [Multivitamin 1 tab PO DAILY@1700 03/11/21 04/19/21 History (formulary)] Acetaminophen Tab [Tylenol] 650 mg PO Q4H PRN 04/19/21 04/19/21 History Calcipotriene [Dovonex] 1 applic TOPICAL BID@0800,1700 04/19/21 04/19/21 History Cyanocobalamin [Vitamin B-12] 1,000 mcg PO DAILY@1700 04/19/21 04/19/21 History Escitalopram Oxalate [Lexapro] 10 mg PO DAILY@0800 04/19/21 04/19/21 History INSULIN LISPRO (humaLOG) [humaLOG] See Protocol SQ ACHS 04/19/21 04/19/21 History Insulin Glargine [Lantus Vial] 12 unit SQ DAILY@0800 04/19/21 04/19/21 History Liquacel 30 ml PO BID@0800,1700 04/19/21 04/19/21 History Magic Butt Paste 1 applic TOPICAL BID 04/19/21 04/19/21 History Magnesium Hydroxide [Milk of 2,400 mg PO DAILY PRN 04/19/21 04/19/21 History Magnesia] Memantine [Namenda] 10 mg PO BID@0800,1700 04/19/21 04/19/21 History Na Phos,M-B/Na Phos,Di-Ba [Fleet 133 ml RECTAL DAILY PRN 04/19/21 04/19/21 History Adult] Polyethylene Glycol 3350 [Miralax] 17 gm PO DAILY PRN 04/19/21 04/19/21 History Sennosides/Docusate Sodium [Senna 2 tab PO HS@2100 04/19/21 04/19/21 History Plus 8.6-50 mg Tablet] Ticagrelor [Brilinta] 90 mg PO BID@0800,1700 04/19/21 04/19/21 History Triamcinolone 0.1% Cream [Kenalog 1 applicatio TOPICAL BID@0800,1700 04/19/21 04/19/21 History 0.1% Cream] bisacodyL [Dulcolax] 10 mg RECTAL DAILY PRN 04/19/21 04/19/21 History Gabapentin [Neurontin] 400 mg PO BID@0800,2100 #6 cap 04/20/21 Rx Isosorbide Mononitrate ER [Imdur] 60 mg PO DAILY@0800 tablet 04/20/21 Rx Allergies Allergy/AdvReac Type Severity Reaction Status Date / Time No Known Allergies Allergy Verified 04/19/21 14:51 Physical Exam Vitals: Vital Signs Temp Pulse Pulse Resp BP BP Pulse Ox 04/20/21 14:25 97.7 F 72 17 112/63 95 04/20/21 08:00 18 04/20/21 07:00 97.6 F 67 18 120/73 95 04/20/21 02:00 97.8 F 78 18 127/77 96 04/19/21 19:08 98.1 F 98 18 137/82 96 04/19/21 19:07 16 04/19/21 17:24 71 18 125/72 97 04/19/21 15:46 97.6 F 68 16 123/81 98 Intake and Output 04/19/21 04/20/2104/20/21 22:59 06:59 14:59 Intake Total 250 476 Output Total 500 Balance 250 -500 476 Intake: Oral 250 476 Output: Urine 500 Other: Voiding Method External Catheter # Voids 1 2 # Bowel Movements 1 Weight 113.398 kg PHYSICAL EXAMINATION: GENERAL:sitting up in bed, alert and oriented x3, not in any acute distress. HEENT: Pupils are round and equally reacting to light. EOMI. No conjunctival pallor. Normocephalic, atraumatic. CARDIOVASCULAR: S1 and S2 present. No murmurs, rubs, or gallops. PULMONARY:CTA, Bilateral bases diminished ABDOMEN: Soft, nontender, nondistended, normoactive bowel sounds. No palpable organomegaly. EXTREMITIES: No cyanosis, clubbing, or pedal edema. NEUROLOGICAL: Left lower extremity with profound weakness-improved from prior admission, alert and oriented 3 SKIN: Warm and dry, No rashes. Results CBC & Chem 7: 04/19/21 14:53 04/19/21 14:53 Labs: Abnormal Lab Results - Last 24 Hours (Table) 04/19/21 04/19/21 04/19/21 Range/Units 14:53 14:53 14:53 Lymphocytes # 0.7 L (1.0-4.8) k/uL APTT 21.8 L (22.0-30.0) sec BUN 31 H (9-20) mg/dL Creatinine 1.58 H (0.66-1.25) mg/dL Glucose 183 H (74-99) mg/dL POC Glucose (mg/dL) (75-99) mg/dL 04/19/21 04/20/21 04/20/21 Range/Units 20:36 06:55 12:15 Lymphocytes # (1.0-4.8) k/uL APTT (22.0-30.0) sec BUN (9-20) mg/dL Creatinine (0.66-1.25) mg/dL Glucose (74-99) mg/dL POC Glucose (mg/dL) 210 H 150 H 172 H (75-99) mg/dL Assessment and Plan Assessment: Chest pain, troponins negative X 3, atypical, acute coronary syndrome ruled out as per cardiology -Recent CVA, right parietal, occipital as per MRI, possibly embolic, with left- leg weakness, in a patient with history of right cerebellar stroke April 2016. -Recent Left ICA stenosis, 50-69% reported per carotid duplex, 25% stenosis bilateral ICA per CTA -Recent Right vertebral stenosis 90%-not vertebral dissection per discussion between radiology and neurology. -COPD -Chronic kidney disease stage 3 -Hypertension -Type 2 diabetes mellitus -Diabetic peripheral neuropathy secondary to the above -Coronary artery disease with history of stenting -Prostate cancer status post radiation therapy, radiation seeds -Generalized medical debility -Vascular dementia. -Seizure disorder -Hyperlipidemia -History of mediastinal lymphadenopathy -Degenerative disc disease Plan: Continue on current medication regime ,monitoring and symptomatic treatment. Discussed with Dr. Holcomb from cardiology this morning, Imdur increased to 60 mg daily, Effient discontinued, continue with Brilenta, aspirin ,statin and metoprolol; Patient Is a Recent CVA of 2020, conservative management recommended as long as patient is able to ambulate with no further chest pain upon exertion. Patient will be discharged back to [facility] subacute rehab today in a stable condition with guarded prognosis pending patient remains chest pain-free, final clearance as per cardiology. Discharge Medication List Aspirin 81 mg PO DAILY@169901/12/15 [History] Atorvastatin Calcium [Lipitor] 80 mg PO HS@209907/30/17 [History] Torsemide [Demadex] 5 mg PO DAILY PRN 02/20/18 [History] Magnesium Oxide 400 mg PO DAILY@169912/01/18 [History] Thiamine [Vitamin B-1] 100 mg PO DAILY@169901/06/19 [History] rOPINIRole HCL [Requip] 0.25 mg PO BID@08,169901/06/19 [History] Fenofibrate Nanocrystallized [Fenofibrate] 145 mg PO HS@209906/13/20 [History] Nitroglycerin Sl Tabs [Nitrostat] 0.4 mg SL Q5M PRN 06/13/20 [History] amLODIPine [Norvasc] 5 mg PO DAILY@79906/13/20 [History] Ascorbic Acid [Vitamin C] 1,000 mg PO DAILY@169907/03/20 [History] Donepezil [Aricept] 10 mg PO HS@209907/03/20 [History] Metoprolol Tartrate [Lopressor] 25 mg PO BID@0800,170 07/03/20 [History] OXcarbazepine [Trileptal] 300 mg PO BID@0800,1700 07/03/20 [History] Pantoprazole [Protonix] 40 mg PO DAILY@0800 07/03/20 [History] Primidone [Mysoline] 125 mg PO DAILY@1400 07/03/20 [History] Primidone [Mysoline] 250 mg PO HS@2100 07/03/20 [History] Dapagliflozin Propanediol [Farxiga] 5 mg PO DAILY@0800 03/11/21 [History] Ergocalciferol [Vitamin D2 (1250 Mcg = 28036 Iu)] 1,250 mcg PO Q30D 03/11/21 [History] Folic Acid 1 mg PO DAILY@169903/11/21 [History] Multivitamins, Thera [Multivitamin (formulary)] 1 tab PO DAILY@169903/11/21 [History] Acetaminophen Tab [Tylenol] 650 mg PO Q4H PRN 04/19/21 [History] Calcipotriene [Dovonex] 1 applic TOPICAL BID@0800,17004/19/21 [History] Cyanocobalamin [Vitamin B-12] 1,000 mcg PO DAILY@169904/19/21 [History] Escitalopram Oxalate [Lexapro] 10 mg PO DAILY@0804/19/21 [History] INSULIN LISPRO (humaLOG) [humaLOG] See Protocol SQ ACHS 04/19/21 [History] Insulin Glargine [Lantus Vial] 12 unit SQ DAILY@0804/19/21 [History] Liquacel 30 ml PO BID@0800,1700 04/19/21 [History] Magic Butt Paste 1 applic TOPICAL BID 04/19/21 [History] Magnesium Hydroxide [Milk of Magnesia] 2,400 mg PO DAILY PRN 04/19/21 [History] Memantine [Namenda] 10 mg PO BID@0800,1700 04/19/21 [History] Na Phos,M-B/Na Phos,Di-Ba [Fleet Adult] 133 ml RECTAL DAILY PRN 04/19/21 [History] Polyethylene Glycol 3350 [Miralax] 17 gm PO DAILY PRN 04/19/21 [History] Sennosides/Docusate Sodium [Senna Plus 8.6-50 mg Tablet] 2 tab PO HS@2100 04/19/21 [History] Ticagrelor [Brilinta] 90 mg PO BID@0800,1700 04/19/21 [History] Triamcinolone 0.1% Cream [Kenalog 0.1% Cream] 1 applicatio TOPICAL BID@0800,1700 04/19/21 [History] bisacodyL [Dulcolax] 10 mg RECTAL DAILY PRN 04/19/21 [History] Gabapentin [Neurontin] 400 mg PO BID@0800,2100 #6 cap 04/20/21 [Rx] Isosorbide Mononitrate ER [Imdur] 60 mg PO DAILY@0800 tablet 04/20/21 [Rx] The impression and plan of care has been dictated as directed. : I performed a history and examination of this patient, discussed the same with the dictator. I agree with the dictator's note ,documented as a scribe. Any additional findings or plans will be noted.
[2021-04-20 15:45] LABS: Chol/HDL Ratio 7.03 Ratio; HDL Cholesterol 45.5 mg/dL (40.00-60.00)
[2021-04-20] MEDS ORDERED: CYANOCOBALAMIN 500 MCG TAB PO SCH (17:00)
[2021-04-20] MEDS ORDERED: FOLIC ACID 1 MG TAB PO SCH (17:00)
[2021-04-20] MEDS ORDERED: MAGNESIUM OXIDE 400 MG TAB PO SCH (17:00)
[2021-04-20] MEDS ORDERED: ASCORBIC ACID 500 MG TAB PO SCH (17:00)
[2021-04-20] MEDS ORDERED: MULTIVITAMINS, THERA 1 EACH TAB PO SCH (17:00)
[2021-04-20] MEDS ORDERED: THIAMINE 100 MG TAB PO SCH (17:00)
[2021-04-20] MEDS ORDERED: ASPIRIN 81 MG PO SCH (17:00)
[2021-04-20 17:17] LABS: Glucose,Whole Blood 191 mg/dL (75-99)
[2021-04-20 20:28] LABS: Glucose,Whole Blood 202 mg/dL (75-99)
[2021-04-20] MEDS: ATORVASTATIN 80 MG TAB PO SCH (20:46)
[2021-04-20] MEDS: PRIMIDONE 250 MG TAB PO SCH (20:47)
[2021-04-20] MEDS: FENOFIBRATE 160 MG TAB PO SCH (20:47)
[2021-04-20] MEDS: DONEPEZIL 10 MG TAB PO SCH (20:47)
[2021-04-20] MEDS: SENNOSIDES-DOCUSATE SODIUM 1 EACH TAB PO SCH (20:47)
[2021-04-20] MEDS ORDERED: PRIMIDONE 250 MG TAB ONE (23:59)
[2021-04-21 07:14] LABS: Glucose,Whole Blood 144 mg/dL (75-99)
[2021-04-21 07:58] VITALS: BP 135/74; PULSE 73; RESP 18; TEMP 97.8
[2021-04-21] MEDS: INSULIN ASPART (NovoLOG) 100 UNIT/ML VIAL SQ SCH (08:42)
[2021-04-21] MEDS: INSULIN DETEMIR (LEVEMIR) 100 UNIT/ML SYR SQ SCH (08:43)
[2021-04-21] MEDS: ISOSORBIDE MONONITRATE ER 60 MG TAB.ER.24H PO SCH (08:44)
[2021-04-21] MEDS: GABAPENTIN 400 MG CAP PO SCH (08:45)
[2021-04-21] MEDS: TICAGRELOR 90 MG TAB PO SCH (08:45)
[2021-04-21] MEDS: METOPROLOL TARTRATE 25 MG TAB PO SCH (08:45)
[2021-04-21] MEDS: PANTOPRAZOLE 40 MG TABLET PO SCH (08:45)
[2021-04-21] MEDS: ESCITALOPRAM 10 MG TAB PO SCH (08:45)
[2021-04-21] MEDS: CALCIPOTRIENE 120 GM TOPICAL SCH (08:45)
[2021-04-21] MEDS: MEMANTINE 10 MG TAB PO SCH (08:45)
[2021-04-21] MEDS: OXcarbazepine 300 MG TAB PO SCH (08:45)
[2021-04-21] MEDS: TRIAMCINOLONE 0.1% CREAM 80 GM TUBE TOPICAL SCH (08:46)
[2021-04-21] MEDS: NON FORMULARY DRUG (Dapagliflozin Propanediol [Farxiga] 5 MG Tablet) PO SCH (08:46)
[2021-04-21] MEDS: NON FORMULARY DRUG (Magic Butt Paste 1 APPLIC) TOPICAL SCH (08:46)
--- NOTE | 2021-04-21 10:27 | P.PN ---
Subjective This is a pleasant 70-year-old male past medical history significant for Recent infarct high right parietal occipital region last admission 02/2021 with left sided residual, coronary artery disease status post PCI to the mid LAD and distal RCA in 2014 and PCI to proximal LAD in 2010, hypertension, dyslipidemia, diabetes mellitus, prior CVA. He follows in the office with Dr. Pickens. We have been asked to see in consultation for chest pain. Patient states she [facility] for rehab after his stroke in February 2021. He states yeste rday he was lying in bed and had an episode of chest pressure. He states it felt as if "someone was sitting on his chest". It was nonradiating, he was not exerting himself. He had associated diaphoresis. He states the pain lasted 2-3 minutes, and that the pain resolved on its own. He no longer has chest pain. He did not have any associated nausea, shortness of breath, palpitations, lightheadedness, dizziness. He has been mostly bed[facility]bound at [facility]. He states this pain is different from his prior MIs. DIAGNOSTICS EKG on arrival revealed sinus mechanism HR , Q waves noted inferiorly, with nonspecific ST abnormalities inferiorly. EKG appears similar to prior Troponin negative x 3. Echocardiogram obtained 02/2021 preserved LV systolic function with ejection fraction 60-65%, mildly enlarged right ventricle TURNER 03/17/21- No cardiac source of embolism noted on the study. 04/21/2021: Patient seen and examined at bedside, no acute distress. He no longer has any chest pain. Denies any shortness of breath. He is maintained on amlodipine 5 mg daily, Brilinta 90mg BID , Lopressor 25 mg twice a day, Imdur 60 mg daily, aspirin 81 mg daily and atorvastatin 80 mg daily. PHYSICAL EXAMINATION Blood pressure 135/74, heart rate 73, afebrile maintaining oxygen saturations >92% on room air CONSTITUTIONAL: No apparent distress. HEENT: Neck Supple. No JVD CHEST EXAMINATION: Lungs are clear to auscultation. No chest wall tenderness is noted on palpation or with deep breathing. HEART EXAMINATION: Regular rate and rhythm. S1, S2 heard. No murmurs, gallops or rub. ABDOMEN: Soft, nontender. EXTREMITIES: 2+ peripheral pulses, no lower extremity edema and no calf tenderness. NEUROLOGIC EXAMINATION: Patient is awake, alert and oriented x3. ASSESSMENT Chest pain, atypical, acute coronary syndrome has been ruled out History of coronary disease status post PCI of the mid LAD and distal RCA in 2014 and PCI of the proximal LAD in 2010 Type 2 diabetes Hypertension Dyslipidemia CVA, most recent last admission 02/2021 with left-sided weakness PLAN -Patient with no chest pain during physical therapy and no further chest pain reported. -We will continue Imdur 60mg daily -Unclear why patient is on Effient and Brilinta, we will discontinue Effient -Continue aspirin, statin, metoprolol tartrate -From cardiology perspective patient stable to be discharged home. -Recommend follow-up with Dr. Pickens. Nurse Practitioner note has been reviewed, I agree with a documented findings and plan of care. Patient was seen and examined. Objective - Vital Signs Vital signs: Vital Signs Temp 97.8 F 04/21/21 07:05 Pulse 73 04/21/21 07:05 Resp 18 04/21/21 08:00 BP 135/74 04/21/21 07:05 Pulse Ox 94 L 04/21/21 07:05 Intake & Output 04/20/21 04/21/21 04/21/21 18:59 06:59 18:59 Intake Total 476 340 Output Total 925 1150 Balance -449 -1150 340 Intake: Oral 476 340 Output: Urine 925 1150 Other: Voiding Method External Catheter External Catheter External Catheter # Voids 1 1 # Bowel Movements 2 2 1 - Labs CBC & Chem 7: 04/19/21 14:53 04/19/21 14:53 Labs: Abnormal Lab Results - Last 24 Hours (Table) 04/19/21 04/20/21 04/20/21 Range/Units 14:53 12:15 17:16 POC Glucose (mg/dL) 172 H 191 H (75-99) mg/dL Triglycerides 540.00 H (0.00-149.00) mg/dL Cholesterol 320.00 H (0.00-200.00) mg/dL 04/20/21 04/21/21 Range/Units 20:25 07:12 POC Glucose (mg/dL) 202 H 144 H (75-99) mg/dL Triglycerides (0.00-149.00) mg/dL Cholesterol (0.00-200.00) mg/dL
== END 2021-04-21 11:36 ==
LOC: EC 14:15 → 6NMEDSUR 16:59
PROVIDERS: ADMIT Family Medicine; ATTEND Family Medicine
DX: R07.89 Other chest pain (principal); R61 Generalized hyperhidrosis; I25.2 Old myocardial infarction; I25.10 Atherosclerotic heart disease of native coronary artery without angina pectoris; F03.90 Unspecified dementia, unspecified severity, without behavioral disturbance, psychotic disturbance, mood disturbance, and anxiety; I12.9 Hypertensive chronic kidney disease with stage 1 through stage 4 chronic kidney disease, or unspecified chronic kidney disease; N18.30 Chronic kidney disease, stage 3 unspecified; E11.42 Type 2 diabetes mellitus with diabetic polyneuropathy; E11.22 Type 2 diabetes mellitus with diabetic chronic kidney disease; J44.9 Chronic obstructive pulmonary disease, unspecified; I65.23 Occlusion and stenosis of bilateral carotid arteries; I65.22 Occlusion and stenosis of left carotid artery; E78.5 Hyperlipidemia, unspecified; M19.90 Unspecified osteoarthritis, unspecified site; R41.3 Other amnesia; G40.909 Epilepsy, unspecified, not intractable, without status epilepticus; I69.354 Hemiplegia and hemiparesis following cerebral infarction affecting left non-dominant side; I69.392 Facial weakness following cerebral infarction; G89.29 Other chronic pain; F40.240 Claustrophobia; M54.50 Low back pain, unspecified; R59.0 Localized enlarged lymph nodes; F01.50 Vascular dementia, unspecified severity, without behavioral disturbance, psychotic disturbance, mood disturbance, and anxiety; R53.81 Other malaise; Z20.822 Contact with and (suspected) exposure to COVID-19; Z87.442 Personal history of urinary calculi; Z87.01 Personal history of pneumonia (recurrent); Z85.46 Personal history of malignant neoplasm of prostate; Z92.3 Personal history of irradiation; Z87.891 Personal history of nicotine dependence; Z95.5 Presence of coronary angioplasty implant and graft; Z96.41 Presence of insulin pump (external) (internal); Z79.82 Long term (current) use of aspirin; Z79.899 Other long term (current) drug therapy; Z79.02 Long term (current) use of antithrombotics/antiplatelets; Z79.4 Long term (current) use of insulin; Z80.52 Family history of malignant neoplasm of bladder; Z81.8 Family history of other mental and behavioral disorders; Z80.49 Family history of malignant neoplasm of other genital organs
CPT/HCPCS: 99285; 36415; 93005; 97162; 97167; 83880; 80061; 80053; 83735; 84484; 85025; 85610; 85730; 83721; 87635; 71045; G0378 ×3

== ENCOUNTER → 2021-07-27 | Outpatient (CLI) | payer MEDICARE, OTHER ==
--- NOTE | 2021-07-27 14:15 | CT ---
EXAMINATION TYPE: CT lumbar spine wo con DATE OF EXAM: 07/27/2021 1:47 PM COMPARISON: None. HISTORY: Low back pain. CT DLP: 1687.3 mGycm Automated exposure control for dose reduction was used. Unenhanced CT of the lumbar spine was performed. Bone and soft tissue window settings are submitted as well as coronal and sagittal reconstructions. There are 5 lumbar type vertebra identified. Posterior interpedicular rods and screws transfix the L3 -S1 levels bilaterally. Artificial disc material is noted at L4-L5 and L5-S1 levels. There is grade 1 anterolisthesis of L5 on S1. Severe disc space narrowing is seen at this level. Gmjuyndz-kx-exfunt n arrowing noted at L3-L4 and L4-L5 levels. Vertebral body heights and disc space heights are maintaine d about the L3 level. Mild to moderate anterior spurring in the lower thoracic spine. Review of the axial images shows T11-T12, T12-L1, L1-L2, and L2-L3 levels all to appear within normal limits . Axial images at the L3-L4 level show mild to moderate broad disc bulge and cnbz-pi-dizjndkv facet art hropathy. There is effacement of the anterior and posterior lateral thecal sac. There is mild/moderat e bilateral neural foraminal narrowing. There is streak artifact from metallic hardware. Axial images at the L4-L5 level show streak artifact from metallic hardware and disc material. Spinal canal is preserved. Moderate to advanced facet arthropathy bilaterally is present. [id number]-[id number] bilateral neural foraminal narrowing from marginal spurring is seen. Axial images at the L5-S1 level show artifact from metallic hardware. Spondylolisthesis is seen. This level is most suboptimally evaluated due to most artifact. There is suggestion of asymmetric moderat e to borderline severe left-sided neural foraminal narrowing seen best sagittal images 46 and 47. Stone filled gallbladder is partially imaged. Cortical thinning of both kidneys is seen. IMPRESSION: As above.
== END | disposition home or self-care (01) ==
LOC: RADCTMAIN 13:23
PROVIDERS: ATTEND Psychiatry & Neurology Neurology
DX: M47.816 Spondylosis without myelopathy or radiculopathy, lumbar region (principal); M43.16 Spondylolisthesis, lumbar region; M25.78 Osteophyte, vertebrae; M51.86 Other intervertebral disc disorders, lumbar region
CPT/HCPCS: 72131

== ENCOUNTER 2021-08-25 12:58 | Inpatient (IN) | payer MEDICARE, OTHER ==
[2021-08-25 13:54] LABS: HGB 14.3 gm/dL (13.0-17.5); RBC 4.77 m/uL (4.30-5.90); WBC 6.2 k/uL (3.8-10.6)
--- NOTE | 2021-08-25 13:54 | XR ---
EXAMINATION TYPE: XR chest 1V portable DATE OF EXAM: 08/25/2021 HISTORY: Shortness of breath. COMPARISON: 04/19/21 TECHNIQUE: Single view of the chest is submitted. FINDINGS: Demonstrated are scattered senescent parenchymal change. There is a hilar prominence noted which may reflect underlying adenopathy. This is been reported on a prior CT of the chest dated 10/28/2018. Lung volumes are diminished. Linear atelectasis right lung base or parenchymal scarring. Degenerative changes are seen of the dorsal spine. IMPRESSION: 1. Chronic changes without evidence for acute pulmonary disease. Hilar adenopathy suggested.
[2021-08-25 13:55] LABS: Basophils # (A) 0.1 k/uL (0-0.2); Basophils % (A) 1 %; Eosinophils # (A) 0.1 k/uL (0-0.7); Eosinophils % (A) 2 %; Lymphocytes # (A) 0.7 k/uL (1.0-4.8); Lymphocytes % (A) 11 %; MCH 29.9 pg (25.0-35.0); MCHC 33.1 g/dL (31.0-37.0); MCV 90.2 fL (80.0-100.0); Mean Platelet Volume 8.2; Monocytes # (A) 0.4 k/uL (0-1.0); Monocytes % (A) 6 %; Neutrophils # (A) 4.8 k/uL (1.3-7.7); Neutrophils % (A) 78 %; Platelet Count 231 k/uL (150-450); RDW 14.8 % (11.5-15.5)
[2021-08-25 13:58] LABS: VBG PH 7.46 (7.31-7.41)
[2021-08-25 14:05] LABS: Albumin 3.5 g/dL (3.5-5.0); Magnesium 1.8 mg/dL (1.6-2.3); Potassium 4.2 mmol/L (3.5-5.1); Total Bilirubin 0.6 mg/dL (0.2-1.3); Total Protein 6.3 g/dL (6.3-8.2)
[2021-08-25 14:12] LABS: Partial Thromboplastin Time 24.6 sec (22.0-30.0); Prothrombin Time 10.9 sec (9.0-12.0)
--- NOTE | 2021-08-25 14:35 | CT ---
EXAMINATION TYPE: CT brain wo con DATE OF EXAM: 08/25/2021 COMPARISON: 03/11/2021 HISTORY: Altered mental status. CT DLP: 1143.[address] of the brain was performed. The ventricles, basal cisterns and sulci overlying the cerebral convexities demonstrate moderate enla rgement. There is no evidence for intracranial hemorrhage or sulcal effacement. There is decreased attenuation about the periventricular white matter and deep white matter of both c erebral hemispheres, compatible with chronic small vessel ischemia. Differential diagnosis does inclu de demyelination. No mass effects are seen.No midline shift. Osseous calvarium is intact. If symptoms persist consider MRI. IMPRESSION: 1. Age related atrophic and chronic small vessel ischemic change without acute intracranial process s een at this time.
[2021-08-25 15:20] LABS: Appearance,Urine Clear (Clear); Bilirubin,Urine Negative (Negative); Blood,Urine Negative (Negative); Color,Urine Yellow; Glucose,Urine (UA) 4+ (Negative); Ketones,Urine Negative (Negative); Leukocyte Esterase,Urine Negative (Negative); Nitrite,Urine Negative (Negative); Protein,Urine Negative (Negative); Specific Gravity,Urine 1.033 (1.001-1.035)
[2021-08-25 15:29] LABS: Amphetamine Screen,Urine Not Detected (NotDetected); Barbiturate Screen,Urine Detected (NotDetected); Benzodiazepines Screen,Urine Not Detected (NotDetected); Cocaine Screen,Urine Not Detected (NotDetected); Methadone Screen, Urine Not Detected (NotDetected); Opiate Screen,Urine Not Detected (NotDetected); Oxycodone Screen, Urine Not Detected (NotDetected); Phencyclidine Screen,Urine Not Detected (NotDetected); Tricyclic Antidepressant,Urine Not Detected (NotDetected); Urn Cannabinoid Scrn Not Detected (NotDetected)
[2021-08-25] MEDS ORDERED: FUROSEMIDE 10 MG TAB PO PRN (16:03)
[2021-08-25] MEDS ORDERED: polyethylene glycoL 3350 17 GM POWD.PACK PO PRN (16:03)
[2021-08-25] MEDS ORDERED: bisacodyL 10 MG SUPP RECTAL PRN (16:03)
[2021-08-25] MEDS ORDERED: MAGNESIUM HYDROXIDE 2,400 MG/10 ML CUP PO PRN (16:03)
[2021-08-25] MEDS ORDERED: ACETAMINOPHEN TAB 325 MG TAB PO PRN (16:04)
[2021-08-25] MEDS ORDERED: NALOXONE 0.4 MG/ML 1 ML VIAL IV PRN (16:04)
--- NOTE | 2021-08-25 16:09 | ED ---
General Adult HPI - General Chief complaint: Altered Mental Status Stated complaint: AMS Time Seen by Provider: 08/25/21 13:12 Source: patient, EMS, RN notes reviewed Mode of arrival: EMS Limitations: altered mental status - History of Present Illness Initial comments: 70-year-old male who presents for evaluation of increased confusion. Patient has had multiple CVAs in the past. He was last seen well yesterday evening. He presented for evaluation in the emergency department today. He is somewhat confused but able to answer simple questions. He denies headache. Denies pain complaints. His and daughter at bedside states that he has left-sided weakness from previous CVA. This is not new. There's been no reported fever. No vomiting. No dyspnea. No chest pain. - Related Data Home Medications Medication Instructions Recorded Confirmed Aspirin 81 mg PO DAILY@1700 01/12/15 08/25/21 Atorvastatin Calcium [Lipitor] 80 mg PO HS 07/30/17 08/25/21 Torsemide [Demadex] 5 mg PO DAILY PRN 02/20/18 08/25/21 Magnesium Oxide 400 mg PO DAILY@1700 12/01/18 08/25/21 Thiamine [Vitamin B-1] 100 mg PO DAILY@1700 01/06/19 08/25/21 rOPINIRole HCL [Requip] 0.25 mg PO BID@0800,169901/06/19 08/25/21 Fenofibrate Nanocrystallized 145 mg PO HS 06/13/20 08/25/21 [Fenofibrate] Nitroglycerin Sl Tabs [Nitrostat] 0.4 mg SL Q5M PRN 06/13/20 08/25/21 amLODIPine [Norvasc] 5 mg PO DAILY@0800 06/13/20 08/25/21 Ascorbic Acid [Vitamin C] 1,000 mg PO DAILY@1700 07/03/20 08/25/21 Donepezil [Aricept] 10 mg PO HS 07/03/20 08/25/21 Metoprolol Tartrate [Lopressor] 25 mg PO BID@0800,1700 07/03/20 08/25/21 OXcarbazepine [Trileptal] 300 mg PO BID@0800,1700 07/03/20 08/25/21 Pantoprazole [Protonix] 40 mg PO DAILY@0800 07/03/20 08/25/21 Primidone [Mysoline] 125 mg PO DAILY@1400 07/03/20 08/25/21 Primidone [Mysoline] 250 mg PO HS 07/03/20 08/25/21 Dapagliflozin Propanediol [Farxiga] 5 mg PO DAILY@0800 03/11/21 08/25/21 Ergocalciferol [Vitamin D2 (1250 1,250 mcg PO Q30D@169903/11/21 08/25/21 Mcg = 67577 Iu)] Folic Acid 1 mg PO DAILY@1700 03/11/21 08/25/21 Multivitamins, Thera [Multivitamin 1 tab PO DAILY@1700 03/11/21 08/25/21 (formulary)] Acetaminophen Tab [Tylenol] 650 mg PO Q4H PRN 04/19/21 08/25/21 Cyanocobalamin [Vitamin B-12] 1,000 mcg PO DAILY@1700 04/19/21 08/25/21 Escitalopram Oxalate [Lexapro] 10 mg PO DAILY@0800 04/19/21 08/25/21 Insulin Glargine [Lantus Vial] 16 unit SQ DAILY@0700 04/19/21 08/25/21 Memantine [Namenda] 10 mg PO BID@0800,1700 04/19/21 08/25/21 Na Phos,M-B/Na Phos,Di-Ba [Fleet 133 ml RECTAL DAILY PRN 04/19/21 08/25/21 Adult] Sennosides/Docusate Sodium [Senna 2 tab PO HS 04/19/21 08/25/21 Plus 8.6-50 mg Tablet] Ticagrelor [Brilinta] 90 mg PO BID@0800,1700 04/19/21 08/25/21 bisacodyL [Dulcolax] 10 mg RECTAL DAILY PRN 04/19/21 08/25/21 HYDROcodone/APAP 5-325MG [Damon 1 tab PO BID PRN 08/25/21 08/25/21 5-325] Magnesium Hydroxide [Milk of 7,200 mg PO Q48H PRN 08/25/21 08/25/21 Magnesia Concentrate] metFORMIN HCL [Glucophage] 500 mg PO BID@0800,1700 08/25/21 08/25/21 polyethylene glycoL 3350 [Miralax] 17 gm PO DAILY PRN 08/25/21 08/25/21 Previous Rx's Medication Instructions Recorded Gabapentin [Neurontin] 400 mg PO BID@0800,2100 #6 cap 04/20/21 Isosorbide Mononitrate ER [Imdur] 60 mg PO DAILY@0800 tablet 04/20/21 Allergies Allergy/AdvReac Type Severity Reaction Status Date / Time No Known Allergies Allergy Verified 08/25/21 15:49 Review of Systems ROS Statement: Those systems with pertinent positive or pertinent negative responses have been documented in the HPI. ROS Other: All systems not noted in ROS Statement are negative. Past Medical History Past Medical History: Coronary Artery Disease (CAD), Cancer, Chest Pain / Angina, CVA/TIA, Dementia, Diabetes Mellitus, Hyperlipidemia, Hypertension, Myocardial Infarction (ID), Osteoarthritis (OA), Pneumonia, Renal Disease, Skin Disorder Additional Past Medical History / Comment(s): SEE DR BLEVINS'S NOTE FOR CARDIAC HX. HX OF SYNCOPAL EPISODES OF UNKNOWN CAUSE. Diabetes mellitus currently on insulin pump. SHORT TERM MEMORY LOSS. 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 COLONOCOSPY, LUMBAR EPIDURAL INJ, total 4 cardiac stents (2010 1 stent and 2014 3 stents),juventino cataracts/lens implants, colonoscopy, gold seed implants for prostate cancer. back surgery (11/2018) Past Anesthesia/Blood Transfusion Reactions: No Reported Reaction Additional Past Anesthesia/Blood Transfusion Reaction / Comment(s): CLAUSTROPHOBIC Date of Last Stent Placement:: 2014 Past Psychological History: No Psychological Hx Reported, Depression Smoking Status: Former smoker Past Alcohol Use History: None Reported Past Drug Use History: None Reported - Past Family History Father Family Medical History: Cancer Additional Family Medical History / Comment(s): FATHER HAD BLADDER CANCER AND OF THIS IN HIS 40'S Mother Family Medical History: Cancer, Dementia Additional Family Medical History / Comment(s): UTERINE CANCER. Mother of dementia at the age of 89yrs. General Exam Limitations: altered mental status General appearance: alert, in no apparent distress Head exam: Present: atraumatic, normocephalic Eye exam: Present: normal appearance, PERRL ENT exam: Present: mucous membranes dry Neck exam: Present: normal inspection. Absent: tenderness, meningismus Respiratory exam: Present: normal lung sounds bilaterally. Absent: respiratory distress, wheezes Cardiovascular Exam: Present: regular rate, normal rhythm GI/Abdominal exam: Present: soft. Absent: distended, tenderness Extremities exam: Present: normal inspection, normal capillary refill Neurological exam: Present: alert, motor sensory deficit (Left leg weakness, equal tax consultant strength.). Absent: oriented X3 (2) Skin exam: Present: warm, dry, intact. Absent: cyanosis, diaphoretic Course Vital Signs 08/25/21 13:05 Temperature 97.5 F L Pulse Rate 68 Respiratory 18 Rate Blood Pressure 122/72 O2 Sat by Pulse 97 Oximetry EKG Findings - EKG Comments: EKG Findings:: EKG: Sinus rhythm rate of 64, OK interval 187, QRS duration 89, QTC 423, no ST segment elevation. Medical Decision Making - Medical Decision Making 70-year-old male previous CVA presenting with increased confusion. Patient has no complaints time my evaluation. His neurologic examination appears to be comparable to baseline. I did perform CT imaging of the brain which showed chronic ischemic changes without acute finding. His laboratory testing was essentially unremarkable. He will be admitted for further evaluation of increased confusion and encephalopathy. There is a possibility of recurrent CVA. Neurology will be placed on consult. Case discussed with Dr. Tripp who will admit. - Lab Data Result diagrams: 08/25/21 13:30 08/25/21 13:30 Lab Results 08/25/21 08/25/21 08/25/21 Range/Units 13:30 13:30 13:30 WBC 6.2 (3.8-10.6) k/uL RBC 4.77 (4.30-5.90) m/uL Hgb 14.3 (13.0-17.5) gm/dL Hct 43.0 (39.0-53.0) % MCV 90.2 (80.0-100.0) fL MCH 29.9 (25.0-35.0) pg MCHC 33.1 (31.0-37.0) g/dL RDW 14.8 (11.5-15.5) % Plt Count 231 (150-450) k/uL MPV 8.2 Neutrophils % 78 % Lymphocytes % 11 % Monocytes % 6 % Eosinophils % 2 % Basophils % 1 % Neutrophils # 4.8 (1.3-7.7) k/uL Lymphocytes # 0.7 L (1.0-4.8) k/uL Monocytes # 0.4 (0-1.0) k/uL Eosinophils # 0.1 (0-0.7) k/uL Basophils # 0.1 (0-0.2) k/uL PT 10.9 (9.0-12.0) sec INR 1.0 (<1.2) APTT 24.6 (22.0-30.0) sec VBG pH (7.31-7.41) VBG pCO2 (37-51) mmHg VBG HCO3 (24-28) mmol/L Sodium 138 (137-145) mmol/L Potassium 4.2 (3.5-5.1) mmol/L Chloride 109 H (98-107) mmol/L Carbon Dioxide 24 (22-30) mmol/L Anion Gap 5 mmol/L BUN 18 (9-20) mg/dL Creatinine 1.20 (0.66-1.25) mg/dL Est GFR (CKD-EPI)AfAm 71 (>60 ml/min/1.73 sqM) Est GFR (CKD-EPI)NonAf 61 (>60 ml/min/1.73 sqM) Glucose 134 H (74-99) mg/dL Plasma Lactic Acid Abdirizak (0.7-2.0) mmol/L Calcium 9.0 (8.4-10.2) mg/dL Magnesium 1.8 (1.6-2.3) mg/dL Total Bilirubin 0.6 (0.2-1.3) mg/dL AST 18 (17-59) U/L ALT 14 (4-49) U/L Alkaline Phosphatase 63 (38-126) U/L Troponin I (0.000-0.034) ng/mL Total Protein 6.3 (6.3-8.2) g/dL Albumin 3.5 (3.5-5.0) g/dL Urine Color Urine Appearance (Clear) Urine pH (5.0-8.0) Ur Specific [place] (1.001-1.035) Urine Protein (Negative) Urine Glucose (UA) (Negative) Urine Ketones (Negative) Urine Blood (Negative) Urine Nitrite (Negative) Urine Bilirubin (Negative) Urine Urobilinogen (<2.0) mg/dL Ur Leukocyte Esterase (Negative) Urine Opiates Screen (NotDetected) Ur Oxycodone Screen (NotDetected) Urine Methadone Screen (NotDetected) Ur Propoxyphene Screen (NotDetected) Ur Barbiturates Screen (NotDetected) U Tricyclic Antidepress (NotDetected) Ur Phencyclidine Scrn (NotDetected) Ur Amphetamines Screen (NotDetected) U Methamphetamines Scrn (NotDetected) U Benzodiazepines Scrn (NotDetected) Urine Cocaine Screen (NotDetected) U Marijuana (THC) Screen (NotDetected) 08/25/21 08/25/21 08/25/21 Range/Units 13:30 13:30 13:41 WBC (3.8-10.6) k/uL RBC (4.30-5.90) m/uL Hgb (13.0-17.5) gm/dL Hct (39.0-53.0) % MCV (80.0-100.0) fL MCH (25.0-35.0) pg MCHC (31.0-37.0) g/dL RDW (11.5-15.5) % Plt Count (150-450) k/uL MPV Neutrophils % % Lymphocytes % % Monocytes % % Eosinophils % % Basophils % % Neutrophils # (1.3-7.7) k/uL Lymphocytes # (1.0-4.8) k/uL Monocytes # (0-1.0) k/uL Eosinophils # (0-0.7) k/uL Basophils # (0-0.2) k/uL PT (9.0-12.0) sec INR (<1.2) APTT (22.0-30.0) sec VBG pH 7.46 H (7.31-7.41) VBG pCO2 24 L (37-51) mmHg VBG HCO3 16 L (24-28) mmol/L Sodium (137-145) mmol/L Potassium (3.5-5.1) mmol/L Chloride (98-107) mmol/L Carbon Dioxide (22-30) mmol/L Anion Gap mmol/L BUN (9-20) mg/dL Creatinine (0.66-1.25) mg/dL Est GFR (CKD-EPI)AfAm (>60 ml/min/1.73 sqM) Est GFR (CKD-EPI)NonAf (>60 ml/min/1.73 sqM) Glucose (74-99) mg/dL Plasma Lactic Acid Abdirizak 2.2 H* (0.7-2.0) mmol/L Calcium (8.4-10.2) mg/dL Magnesium (1.6-2.3) mg/dL Total Bilirubin (0.2-1.3) mg/dL AST (17-59) U/L ALT (4-49) U/L Alkaline Phosphatase (38-126) U/L Troponin I <0.012 (0.000-0.034) ng/mL Total Protein (6.3-8.2) g/dL Albumin (3.5-5.0) g/dL Urine Color Urine Appearance (Clear) Urine pH (5.0-8.0) Ur Specific [place] (1.001-1.035) Urine Protein (Negative) Urine Glucose (UA) (Negative) Urine Ketones (Negative) Urine Blood (Negative) Urine Nitrite (Negative) Urine Bilirubin (Negative) Urine Urobilinogen (<2.0) mg/dL Ur Leukocyte Esterase (Negative) Urine Opiates Screen (NotDetected) Ur Oxycodone Screen (NotDetected) Urine Methadone Screen (NotDetected) Ur Propoxyphene Screen (NotDetected) Ur Barbiturates Screen (NotDetected) U Tricyclic Antidepress (NotDetected) Ur Phencyclidine Scrn (NotDetected) Ur Amphetamines Screen (NotDetected) U Methamphetamines Scrn (NotDetected) U Benzodiazepines Scrn (NotDetected) Urine Cocaine Screen (NotDetected) U Marijuana (THC) Screen (NotDetected) 08/25/21 Range/Units 14:50 WBC (3.8-10.6) k/uL RBC (4.30-5.90) m/uL Hgb (13.0-17.5) gm/dL Hct (39.0-53.0) % MCV (80.0-100.0) fL MCH (25.0-35.0) pg MCHC (31.0-37.0) g/dL RDW (11.5-15.5) % Plt Count (150-450) k/uL MPV Neutrophils % % Lymphocytes % % Monocytes % % Eosinophils % % Basophils % % Neutrophils # (1.3-7.7) k/uL Lymphocytes # (1.0-4.8) k/uL Monocytes # (0-1.0) k/uL Eosinophils # (0-0.7) k/uL Basophils # (0-0.2) k/uL PT (9.0-12.0) sec INR (<1.2) APTT (22.0-30.0) sec VBG pH (7.31-7.41) VBG pCO2 (37-51) mmHg VBG HCO3 (24-28) mmol/L Sodium (137-145) mmol/L Potassium (3.5-5.1) mmol/L Chloride (98-107) mmol/L Carbon Dioxide (22-30) mmol/L Anion Gap mmol/L BUN (9-20) mg/dL Creatinine (0.66-1.25) mg/dL Est GFR (CKD-EPI)AfAm (>60 ml/min/1.73 sqM) Est GFR (CKD-EPI)NonAf (>60 ml/min/1.73 sqM) Glucose (74-99) mg/dL Plasma Lactic Acid [place] (0.7-2.0) mmol/L Calcium (8.4-10.2) mg/dL Magnesium (1.6-2.3) mg/dL Total Bilirubin (0.2-1.3) mg/dL AST (17-59) U/L ALT (4-49) U/L Alkaline Phosphatase (38-126) U/L Troponin I (0.000-0.034) ng/mL Total Protein (6.3-8.2) g/dL Albumin (3.5-5.0) g/dL Urine Color Yellow Urine Appearance Clear (Clear) Urine pH 6.0 (5.0-8.0) Ur Specific [place] 1.033 (1.001-1.035) Urine Protein Negative (Negative) Urine Glucose (UA) 4+ H (Negative) Urine Ketones Negative (Negative) Urine Blood Negative (Negative) Urine Nitrite Negative (Negative) Urine Bilirubin Negative (Negative) Urine Urobilinogen 4.0 (<2.0) mg/dL Ur Leukocyte Esterase Negative (Negative) Urine Opiates Screen Not Detected (NotDetected) Ur Oxycodone Screen Not Detected (NotDetected) Urine Methadone Screen Not Detected (NotDetected) Ur Propoxyphene Screen Not Detected (NotDetected) Ur Barbiturates Screen Detected H (NotDetected) U Tricyclic Antidepress Not Detected (NotDetected) Ur Phencyclidine Scrn Not Detected (NotDetected) Ur Amphetamines Screen Not Detected (NotDetected) U Methamphetamines Scrn Not Detected (NotDetected) U Benzodiazepines Scrn Not Detected (NotDetected) Urine Cocaine Screen Not Detected (NotDetected) U Marijuana (THC) Screen Not Detected (NotDetected) Disposition Clinical Impression: Weakness, Altered mental status, Delirium due to general medical condition Disposition: ADMITTED IP TO THIS [facility] Condition: Stable Is patient prescribed a controlled substance at d/c from ED?: No Referrals: Cedric Gold DO [Primary Care Provider] - 1-2 days Decision to Admit Reason: Admit from EC Decision Date: 08/25/21 Decision Time: 16:09
--- NOTE | 2021-08-25 17:47 | US ---
EXAMINATION TYPE: US carotid duplex BILAT DATE OF EXAM: 08/25/2021 COMPARISON: NONE CLINICAL HISTORY: stroke. multiple strokes EXAM MEASUREMENTS: RIGHT: Peak Systolic Velocity (PSV) cm/sec ----- Right CCA: 47.5 ----- Right ICA: 53.8 ----- Right ECA: 82.0 ICA/CCA ratio: 1.1 RIGHT: End Diastole cm/sec ----- Right CCA: 4.7 ----- Right ICA: 13.2 ----- Right ECA: 6.2 LEFT: Peak Systolic Velocity (PSV) cm/sec ----- Left CCA: 59.0 ----- Left ICA: 79.8 ----- Left ECA: 75.6 ICA/CCA ratio: 1.4 LEFT: End Diastole cm/sec ----- Left CCA: 10.1 ----- Left ICA: 14.9 ----- Left ECA: 10.1 VERTEBRALS (direction of flow): Right Vertebral: Antegrade Left Vertebral: Antegrade Rhythm: Normal Heterogeneous plaque bilateral bulbs with no significant stenosis IMPRESSION: Less than 50% stenosis of the bilateral carotid systems. Criteria for Assigning % of Stenosis / Diameter reduction (Estimation based on the indirect measurements of the internal carotid artery velocities (ICA PSV). 1. Normal (no stenosis)=ICA PSV < 125 cm/s: ratio < 2.0: ICA EDV<40 cm/s. 2. Less than 50% stenosis=ICA PSV < 125 cm/s: ratio < 2.0: ICA EDV<40 cm/s. 3. 50 to 69% stenosis=ICA PSV of 125 to 230 cm/s: ration 2.0 ? 4.0: ICA EDV 40-100 cm/s. 4. Greater than 70% stenosis to near occlusion= ICA PSV > 230 cm/s: ratio > 4.0: ICA EDV > 100 cm/s. 5. Near occlusion= ICA PSV velocities may be low or undetectable: variable ratio and ICA EDV. 6. Total occlusion=unable to detect flow.
--- NOTE | 2021-08-25 18:48 | HP ---
HISTORY AND PHYSICAL CHIEF COMPLAINTS: Slurring of speech and change in mental status and weakness. HISTORY OF PRESENT ILLNESS: This 70-year-old gentleman with a past medical history of CAD, multiple strokes, dementia is a halfway resident right now. The patient has bilateral strokes. Patient had an outpatient neurology evaluation yesterday but today the patient is noted to have slurring of speech also, weakness, confusion. Patient was taken to [facility]. CT scan of the brain showed no acute abnormality, which was reviewed personally by me. The patient is unable to give coherent history. Most of the history taken from my discussion with ER physician as well as review of the chart and also discussion with the family at the bedside. PAST MEDICAL HISTORY: History of CAD, CVA, TIA, dementia, multiple strokes. HOME MEDICATIONS: Reviewed and include: Requip, MiraLAX, Glucophage, Dulcolax. Doses, and other medications also reviewed. ALLERGIES: None. Family history, social history and review of systems could not be taken. PHYSICAL EXAMINATION: Pulse is 68, blood pressure 120/27 respiration 18. HEENT exam: Bilateral nystagmus present otherwise. Oral mucosa moist. NECK is no jugular venous distention. CARDIOVASCULAR: S1, S2 muffled. RESPIRATION: Breath sounds diminished in the bases. No rhonchi. No crackles. ABDOMEN: Soft, nontender. LEGS: No edema, no swelling. NERVOUS SYSTEM: The patient is dysarthric and dysphasic and also diffuse weakness, left more than the right. SKIN: No ulcer or rash. JOINTS: No active deforming arthropathy. Lymphatics: No lymph nodes palpable in the neck, axillae or groin. LABS: CBC 6.2. Other labs reviewed. Lactic acid 2.2. ASSESSMENT: 1. Slurring of speech, acute cerebrovascular accident and acute stroke. 2. History of multiple cerebrovascular accidents. 3. Gait dysfunction. 4. History of dementia. 5. Diabetes mellitus, type 2. 6. Hypertension. RECOMMENDATIONS AND DISCUSSION: In this 70-year-old gentleman who presented with multiple complex medical issues, we will monitor the patient closely. Neurovascular workup. Neuro checks. Antiplatelet agents. Neurology consultation. Otherwise prognosis guarded. Further recommendations to follow. Discussed with family. MMODL / IJN: [id number] /
[2021-08-25 19:26] LABS: Glucose,Whole Blood 102 mg/dL (75-99)
[2021-08-25] MEDS: SODIUM CHLORIDE 0.9% 1,000 ML IV SCH (19:30)
[2021-08-25] MEDS: ASCORBIC ACID 500 MG TAB PO SCH (20:10)
[2021-08-25] MEDS: ASPIRIN 81 MG PO SCH (20:10)
[2021-08-25] MEDS: CYANOCOBALAMIN 500 MCG TAB PO SCH ×2 (20:11→20:12)
[2021-08-25] MEDS: ATORVASTATIN 80 MG TAB PO SCH ×2 (20:11→20:12)
[2021-08-25] MEDS: DONEPEZIL 10 MG TAB PO SCH (20:12)
[2021-08-25] MEDS: FOLIC ACID 1 MG TAB PO SCH (22:29)
[2021-08-25] MEDS: MULTIVITAMINS, THERA 1 EACH TAB PO SCH (22:30)
[2021-08-25] MEDS: MAGNESIUM OXIDE 400 MG TAB PO SCH (22:30)
[2021-08-25] MEDS: MEMANTINE 10 MG TAB PO SCH (22:30)
[2021-08-25] MEDS: METOPROLOL TARTRATE 25 MG TAB PO SCH (22:30)
[2021-08-25] MEDS: metFORMIN 500 MG TAB PO SCH (22:30)
[2021-08-25] MEDS: THIAMINE 100 MG TAB PO SCH (22:31)
[2021-08-25] MEDS: OXcarbazepine 300 MG TAB PO SCH (22:31)
[2021-08-25] MEDS: INSULIN ASPART (NovoLOG) 100 UNIT/ML VIAL SQ SCH ×2 (22:31→22:33)
[2021-08-25] MEDS: FENOFIBRATE 160 MG TAB PO SCH (22:31)
[2021-08-25] MEDS: TICAGRELOR 90 MG TAB PO SCH (22:31)
[2021-08-25] MEDS: PRIMIDONE 250 MG TAB PO SCH (22:32)
[2021-08-25] MEDS: SENNOSIDES-DOCUSATE SODIUM 1 EACH TAB PO SCH (22:32)
[2021-08-25] MEDS: GABAPENTIN 400 MG CAP PO SCH (22:32)
[2021-08-26] MEDS: HEPARIN SODIUM,PORCINE/PF 5,000 UNIT/0.5 ML SYRINGE SQ SCH ×3 (00:07→21:01)
[2021-08-26 06:21] LABS: Glucose,Whole Blood 94 mg/dL (75-99)
[2021-08-26] MEDS: INSULIN DETEMIR (LEVEMIR) 100 UNIT/ML SYR SQ SCH (06:23)
[2021-08-26] MEDS: INSULIN ASPART (NovoLOG) 100 UNIT/ML VIAL SQ SCH ×4 (06:24→20:57)
[2021-08-26] MEDS: SODIUM CHLORIDE 0.9% 1,000 ML IV SCH ×2 (08:14→21:05)
[2021-08-26 09:18] LABS: Basophils % (A) 1 %; Eosinophils # (A) 0.1 k/uL (0-0.7); Eosinophils % (A) 2 %; HCT 45.2 % (39.0-53.0); HGB 14.9 gm/dL (13.0-17.5); Lymphocytes # (A) 0.5 k/uL (1.0-4.8); Lymphocytes % (A) 9 %; MCH 30.3 pg (25.0-35.0); MCHC 33.1 g/dL (31.0-37.0); MCV 91.7 fL (80.0-100.0); Monocytes # (A) 0.2 k/uL (0-1.0); Monocytes % (A) 5 %; Neutrophils # (A) 4.2 k/uL (1.3-7.7); Neutrophils % (A) 82 %; Platelet Count 239 k/uL (150-450); RBC 4.93 m/uL (4.30-5.90); RDW 15.4 % (11.5-15.5); WBC 5.1 k/uL (3.8-10.6)
[2021-08-26 09:25] LABS: Albumin 3.8 g/dL (3.5-5.0); Calcium 9.1 mg/dL (8.4-10.2); Potassium 3.9 mmol/L (3.5-5.1); Total Bilirubin 0.7 mg/dL (0.2-1.3); Total Protein 6.5 g/dL (6.3-8.2)
[2021-08-26] MEDS: ISOSORBIDE MONONITRATE ER 60 MG TAB.ER.24H PO SCH (11:04)
[2021-08-26] MEDS: TICAGRELOR 90 MG TAB PO SCH ×2 (11:04→17:10)
[2021-08-26] MEDS: MEMANTINE 10 MG TAB PO SCH ×2 (11:04→17:10)
[2021-08-26] MEDS: metFORMIN 500 MG TAB PO SCH ×3 (11:04→17:15)
[2021-08-26] MEDS: METOPROLOL TARTRATE 25 MG TAB PO SCH ×2 (11:04→17:11)
[2021-08-26] MEDS: PANTOPRAZOLE 40 MG TABLET PO SCH (11:04)
[2021-08-26] MEDS: amLODIPine 5 MG TAB PO SCH (11:04)
[2021-08-26] MEDS: GABAPENTIN 400 MG CAP PO SCH ×2 (11:04→21:01)
[2021-08-26] MEDS: ESCITALOPRAM 10 MG TAB PO SCH (11:04)
[2021-08-26] MEDS: NON FORMULARY DRUG (Dapagliflozin Propanediol [Farxiga] 5 MG Tablet) PO SCH (11:05)
[2021-08-26] MEDS: OXcarbazepine 300 MG TAB PO SCH ×2 (11:05→17:11)
[2021-08-26 11:08] LABS: Glucose,Whole Blood 75 mg/dL (75-99)
--- NOTE | 2021-08-26 12:43 | ECHOF ---
Referral Reason:Stroke MEASUREMENTS -------- HEIGHT: 177.8 cm WEIGHT: 98.9 kg BP: 122/72 RVIDd: 3.2 cm (< 3.3) IVSd: 1.4 cm (0.6 - 1.1) LVIDd: 4.2 cm (3.9 - 5.3) LVPWd: 1.1 cm (0.6 - 1.1) IVSs: 1.5 cm LVIDs: 2.9 cm LVPWs: 1.9 cm LA Diam: 3.4 cm (2.7 - 3.8) Ao Diam: 3.2 cm (2.0 - 3.7) AV Cusp: 2.1 cm (1.5 - 2.6) MV EXCURSION: 16.659 mm (> 18.000) MV EF SLOPE: 45 mm/s (70 - 150) EPSS: 0.5 cm MV E Morgan: 0.75 m/s MV DecT: 217 ms MV A Morgan: 1.02 m/s MV E/A Ratio: 0.74 FINDINGS -------- Sinus rhythm. This was a technically adequate study. The left ventricular size is normal. There is moderate concentric left ventricular hypertrophy. O verall left ventricular systolic function is normal with, an EF between 55 - 60 %. The right ventricle is normal in size. The left atrium is normal in size. The right atrium is normal in size. Interatrial and interventricular septum intact. There is mild aortic valve sclerosis. Mild mitral annular calcification present. The tricuspid valve appears structurally normal. Unable to estimate RVSP due to inadequate TR jet s pectral doppler profile. The pulmonic valve was not well visualized. The aortic root size is normal. Normal inferior vena cava with normal inspiratory collapse consistent with estimated right atrial pre ssure of 5 mmHg. There is no pericardial effusion. CONCLUSIONS -------- 1. The left ventricular size is normal. 2. There is moderate concentric left ventricular hypertrophy. 3. Overall left ventricular systolic function is normal with, an EF between 55 - 60 %. 4. There is mild aortic valve sclerosis. 5. Mild mitral annular calcification present. 6. There is no pericardial effusion. STOCK ORDER LISTER: Paulina Arriola RD
[2021-08-26] MEDS: PRIMIDONE 250 MG TAB PO SCH ×2 (13:35→21:02)
--- NOTE | 2021-08-26 14:51 | P.CNNES ---
History of Present Illness Consult date: 08/26/21 Reason for Consult: Acute mental status change History of Present Illness: The patient is a 70-year-old male who is seen in neurologic consultation on August 26, 2021, via telemedicine. According to the nurse at the bedside, the patient failed his swallow study in the emergency department as well as here on the floor. The patient has a history of stroke in February 2021. This stroke left the patient with left lower extremity weakness. He is unable to ambulate. The patient reports that he came into the hospital because his "speech is not very good". The patient reports that his speech is "slow and slurred". He says the symptoms were present upon awakening. The patient himself denies confusion. He reports left lower extremity weakness secondary to a previous stroke. Patient denies a history of similar symptoms. He denies weakness in his arms. He does report that his legs are weak. His left leg is weak secondary to previous stroke. He says his right leg is fine. He denies headache, visual changes, memory deficits. The patient reports that he has been living in a fdc because of his left leg weakness. In the emergency department, CT scan of the brain revealed no signs of acute hemorrhage or infarct. These images were personally reviewed. There is no evidence of large infarct involving a specific vascular territory. There are signs of chronic ischemic white matter disease as well as diffuse atrophy. Past Medical History Past Medical History: Coronary Artery Disease (CAD), Cancer, Chest Pain / Angina, CVA/TIA, Dementia, Diabetes Mellitus, Hyperlipidemia, Hypertension, Myocardial Infarction (NM), Osteoarthritis (OA), Pneumonia, Renal Disease, Skin Disorder Additional Past Medical History / Comment(s): SEE DR BLEVINS'S NOTE FOR CARDIAC HX. HX OF SYNCOPAL EPISODES OF UNKNOWN CAUSE. Diabetes mellitus currently on insulin pump. SHORT TERM MEMORY LOSS. seizure disorder, peripheral neuropathy, prostate cancer treated by radiation therapy, CVA back in April 2016 with right-sided weakness and facial droop, chronic back pain, L3 L4 L5 and S1 lumbosacral disease/fractures, nephrolithiasis, chronic renal failure, hyper tension, hyperlipidemia, coronary artery disease Last Myocardial Infarction Date:: 2014 History of Any Multi-Drug Resistant Organisms: None Reported Past Surgical History: Back Surgery, Heart Catheterization With Stent Additional Past Surgical History / Comment(s): COMPETENT TO SIGN SURGICAL CONSENT. COLONOCOSPY, LUMBAR EPIDURAL INJ, total 4 cardiac stents (2010 1 stent and 2014 3 stents),juventino cataracts/lens implants, colonoscopy, gold seed implants for prostate cancer. back surgery (11/2018) Past Anesthesia/Blood Transfusion Reactions: No Reported Reaction Additional Past Anesthesia/Blood Transfusion Reaction / Comment(s): CLAUSTROPHOBIC Date of Last Stent Placement:: 2014 Past Psychological History: No Psychological Hx Reported, Depression Smoking Status: Former smoker Past Alcohol Use History: None Reported Additional Past Alcohol Use History / Comment(s): STARTED SMOKING AROUND AGE 48(1998) SMOKE A PIPE OR CIGARS 2-3 times a week but quit 04/2016. Past Drug Use History: None Reported - Past Family History Father Family Medical History: Cancer Additional Family Medical History / Comment(s): FATHER HAD BLADDER CANCER AND OF THIS IN HIS 40'S Mother Family Medical History: Cancer, Dementia Additional Family Medical History / Comment(s): UTERINE CANCER. Mother of dementia at the age of 89yrs. Medications and Allergies Home Medications Medication Instructions Recorded Confirmed Type Aspirin 81 mg PO DAILY@1700 01/12/15 08/25/21 History Atorvastatin Calcium [Lipitor] 80 mg PO HS 07/30/17 08/25/21 History Torsemide [Demadex] 5 mg PO DAILY PRN 02/20/18 08/25/21 History Magnesium Oxide 400 mg PO DAILY@1700 12/01/18 08/25/21 History Thiamine [Vitamin B-1] 100 mg PO DAILY@1700 01/06/19 08/25/21 History rOPINIRole HCL [Requip] 0.25 mg PO BID@0800,1700 01/06/19 08/25/21 History Fenofibrate Nanocrystallized 145 mg PO HS 06/13/20 08/25/21 History [Fenofibrate] Nitroglycerin Sl Tabs [Nitrostat] 0.4 mg SL Q5M PRN 06/13/20 08/25/21 History amLODIPine [Norvasc] 5 mg PO DAILY@0800 06/13/20 08/25/21 History Ascorbic Acid [Vitamin C] 1,000 mg PO DAILY@1700 07/03/20 08/25/21 History Donepezil [Aricept] 10 mg PO HS 07/03/20 08/25/21 History Metoprolol Tartrate [Lopressor] 25 mg PO BID@0800,1700 07/03/20 08/25/21 History OXcarbazepine [Trileptal] 300 mg PO BID@0800,1700 07/03/20 08/25/21 History Pantoprazole [Protonix] 40 mg PO DAILY@0800 07/03/20 08/25/21 History Primidone [Mysoline] 125 mg PO DAILY@1400 07/03/20 08/25/21 History Primidone [Mysoline] 250 mg PO HS 07/03/20 08/25/21 History Dapagliflozin Propanediol [Farxiga] 5 mg PO DAILY@0800 03/11/21 08/25/21 History Ergocalciferol [Vitamin D2 (1250 1,250 mcg PO Q30D@169903/11/21 08/25/21 History Mcg = 03400 Iu)] Folic Acid 1 mg PO DAILY@1700 03/11/21 08/25/21 History Multivitamins, Thera [Multivitamin 1 tab PO DAILY@1700 03/11/21 08/25/21 History (formulary)] Acetaminophen Tab [Tylenol] 650 mg PO Q4H PRN 04/19/21 08/25/21 History Cyanocobalamin [Vitamin B-12] 1,000 mcg PO DAILY@1700 04/19/21 08/25/21 History Escitalopram Oxalate [Lexapro] 10 mg PO DAILY@0800 04/19/21 08/25/21 History Insulin Glargine [Lantus Vial] 16 unit SQ DAILY@0700 04/19/21 08/25/21 History Memantine [Namenda] 10 mg PO BID@0800,1700 04/19/21 08/25/21 History Na Phos,M-B/Na Phos,Di-Ba [Fleet 133 ml RECTAL DAILY PRN 04/19/21 08/25/21 History Adult] Sennosides/Docusate Sodium [Senna 2 tab PO HS 04/19/21 08/25/21 History Plus 8.6-50 mg Tablet] Ticagrelor [Brilinta] 90 mg PO BID@0800,1700 04/19/21 08/25/21 History bisacodyL [Dulcolax] 10 mg RECTAL DAILY PRN 04/19/21 08/25/21 History Gabapentin [Neurontin] 400 mg PO BID@0800,2100 #6 cap 04/20/21 08/25/21 Rx Isosorbide Mononitrate ER [Imdur] 60 mg PO DAILY@0800 tablet 04/20/21 08/25/21 Rx HYDROcodone/APAP 5-325MG [Oriental 1 tab PO BID PRN 08/25/21 08/25/21 History 5-325] Magnesium Hydroxide [Milk of 7,200 mg PO Q48H PRN 08/25/21 08/25/21 History Magnesia Concentrate] metFORMIN HCL [Glucophage] 500 mg PO BID@0800,1700 08/25/21 08/25/21 History polyethylene glycoL 3350 [Miralax] 17 gm PO DAILY PRN 08/25/21 08/25/21 History Allergies Allergy/AdvReac Type Severity Reaction Status Date / Time No Known Allergies Allergy Verified 08/25/21 15:49 Physical Examination - Vital Signs Vital Signs: Vital Signs Temp Pulse Pulse Resp BP BP Pulse Ox 08/26/21 08:17 97.5 F L 64 17 143/74 95 08/26/21 04:00 71 20 141/77 96 08/26/21 00:00 67 16 144/73 95 08/25/21 21:40 98.6 F 69 16 143/79 96 08/25/21 20:40 64 16 133/78 96 08/25/21 13:05 97.5 F L 68 18 122/72 97 Intake and Output 08/25/21 08/26/21 08/26/21 22:59 06:59 14:59 Intake Total 0 Balance 0 Intake: Oral 0 Other: Voiding Method Urinal Urinal Urinal Diaper Diaper Diaper External Catheter Weight 98.883 kg Gen.: The patient is reclining in the bed. He is well-nourished, well-developed and in no acute distress. HEENT: Head is atraumatic, normocephalic. Fundus not visualized. There is no scleral icterus. Mucous membranes are moist. Neck: Supple without carotid bruits Heart: Regular rate and rhythm Extremities: Without edema Neurological examination Mental status: The patient is awake, alert and oriented 3. His speech is dysarthric. The patient has no difficulty answering questions or following commands. Cranial nerves: Pupils are equal at 2 mm and reactive. Visual irizarry are full to confrontation. Extraocular movement assessment reveals decreased left lateral gaze. There is no nystagmus. Facial sensation is intact. There is a left lower motor neuron facial droop. There is decreased strength of left eyelid closure. There is decreased elevation of the left eyebrow. Shoulder shrug is symmetric. Tongue protrudes midline. Motor: Bilateral upper extremity strength is 5/5. Left hip flexor and ankle plantar and dorsiflexor strength is 0/5. Right hip flexor 3+/5. Right ankle plantar and dorsiflexors 5/5. Coordination: There is no pronator drift. Finger to nose testing and rapid alternating movements are intact. Sensation: Grossly intact to light touch throughout. There is no extinction with double simultaneous stimulation. Deep tendon reflexes: 2+/4+ throughout. Plantar responses are difficult to assess secondary to withdrawal. Gait: Not assessed Results - Laboratory Findings CBC and BMP: 08/26/21 08:39 08/26/21 08:39 Abnormal Lab Findings: Abnormal Labs 08/25/21 08/25/21 08/25/21 13:30 13:30 13:30 Lymphocytes # 0.7 L VBG pH VBG pCO2 VBG HCO3 Chloride 109 H Glucose 134 H POC Glucose (mg/dL) Plasma Lactic Acid Abdirizak 2.2 H* Urine Glucose (UA) Ur Barbiturates Screen 08/25/21 08/25/21 08/25/21 13:41 14:50 19:24 Lymphocytes # VBG pH 7.46 H VBG pCO2 24 L VBG HCO3 16 L Chloride Glucose POC Glucose (mg/dL) 102 H Plasma Lactic Acid Abdirizak Urine Glucose (UA) 4+ H Ur Barbiturates Screen Detected H 08/26/21 08/26/21 08:39 08:39 Lymphocytes # 0.5 L VBG pH VBG pCO2 VBG HCO3 Chloride 109 H Glucose POC Glucose (mg/dL) Plasma Lactic Acid Abdirizak Urine Glucose (UA) Ur Barbiturates Screen Assessment and Plan Assessment: 1. 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 The patient's previous neurology consult, in February 2021, at the time of his previous stroke, did not indicate evidence of a significant left-sided facial droop. This is unlikely to be secondary to his previous stroke. Previous MRI images have been reviewed. There is evidence of several prior strokes. 2. Left cranial nerve palsy, without diplopia, age of this finding is uncertain. The patient denies history of diplopia. 3. History of stroke with residual left lower extremity weakness 4. Reported history of coronary artery disease 5. Reported history of hypertension 6. Reported history of diabetes mellitus 7. Reported history of seizures 8. Reported history of vascular dementia Plan: 1. MRI of brain to further evaluate cranial nerve VII and cranial nerve palsy, to rule out brainstem infarct. The patient does have a history of several prior strokes. 2. Begin valacyclovir 500 mg twice daily for treatment of Benson's palsy, if MRI of brain is negative 3. Speech therapy consultation for swallow eval 4. May consider ordering EEG Time with Patient: Greater than 30 (spent 40 minutes with patient via telemedicine)
[2021-08-26 16:54] LABS: Glucose,Whole Blood 109 mg/dL (75-99)
[2021-08-26] MEDS: MAGNESIUM OXIDE 400 MG TAB PO SCH (17:10)
[2021-08-26] MEDS: ASCORBIC ACID 500 MG TAB PO SCH (17:10)
[2021-08-26] MEDS: CYANOCOBALAMIN 500 MCG TAB PO SCH (17:10)
[2021-08-26] MEDS: ALPRAZolam 0.5 MG TAB PO PRN (17:10)
[2021-08-26] MEDS: FOLIC ACID 1 MG TAB PO SCH (17:10)
[2021-08-26] MEDS: THIAMINE 100 MG TAB PO SCH (17:10)
[2021-08-26] MEDS: MULTIVITAMINS, THERA 1 EACH TAB PO SCH (17:11)
[2021-08-26] MEDS: ASPIRIN 81 MG PO SCH (17:13)
--- NOTE | 2021-08-26 20:08 | PN ---
PROGRESS NOTE DATE OF SERVICE: 08/26/2021 This 70-year-old gentleman who was admitted with slurring of speech and possibly acute CVA is being closely monitored at this time. No chest pain. No palpitations. Slurring of speech has improved. PHYSICAL EXAMINATION: Pulse 72, blood pressure 140/74, respiration 15. Oral mucosa moist. NECK: No jugular venous distention. CARDIOVASCULAR: S1, S2. RESPIRATORY: A few scattered rhonchi. ABDOMEN: Soft. NERVOUS SYSTEM: Minimal weakness on the left side, residual weakness. LAB: CBC noted. Other labs noted. ASSESSMENT: 1. Slurring of speech and possible acute cerebrovascular accident and acute stroke. 2. History of multiple cerebrovascular accidents. 3. Gait dysfunction. 4. History of dementia. 5. Diabetes mellitus, type 2. 6. Hypertension. RECOMMENDATION AND DISCUSSION: Recommend to continue the current management and symptomatic treatment. Continue the antiplatelet agents. Monitor blood pressure closely. Follow closely with Neurology. Prognosis guarded. Further recommendations to follow. MMODL / IJN: [id number] /
[2021-08-26 20:17] LABS: Glucose,Whole Blood 129 mg/dL (75-99)
[2021-08-26] MEDS: ATORVASTATIN 80 MG TAB PO SCH (21:01)
[2021-08-26] MEDS: FENOFIBRATE 160 MG TAB PO SCH (21:01)
[2021-08-26] MEDS: SENNOSIDES-DOCUSATE SODIUM 1 EACH TAB PO SCH (21:01)
[2021-08-26] MEDS: DONEPEZIL 10 MG TAB PO SCH (21:01)
[2021-08-26] MEDS: HYDROcodone/APAP 5-325MG 1 EACH TAB PO PRN (21:40)
[2021-08-26 23:08] LABS: Chol/HDL Ratio 7.13 Ratio; LDL Cholesterol,Calculated 149.3 mg/dL (0.0-131.0)
[2021-08-27 06:31] LABS: Glucose,Whole Blood 141 mg/dL (75-99)
[2021-08-27] MEDS: INSULIN ASPART (NovoLOG) 100 UNIT/ML VIAL SQ SCH ×4 (06:40→21:53)
[2021-08-27] MEDS: INSULIN DETEMIR (LEVEMIR) 100 UNIT/ML SYR SQ SCH (06:40)
[2021-08-27 07:49] LABS: Basophils % (A) 1 %; Eosinophils # (A) 0.1 k/uL (0-0.7); Eosinophils % (A) 1 %; HCT 44.1 % (39.0-53.0); HGB 14.5 gm/dL (13.0-17.5); Lymphocytes # (A) 0.5 k/uL (1.0-4.8); Lymphocytes % (A) 9 %; MCH 29.8 pg (25.0-35.0); MCHC 32.9 g/dL (31.0-37.0); MCV 90.8 fL (80.0-100.0); Mean Platelet Volume 8.2; Monocytes # (A) 0.3 k/uL (0-1.0); Monocytes % (A) 6 %; Neutrophils # (A) 4.1 k/uL (1.3-7.7); Neutrophils % (A) 80 %; Platelet Count 206 k/uL (150-450); RBC 4.86 m/uL (4.30-5.90); RDW 14.7 % (11.5-15.5); WBC 5.1 k/uL (3.8-10.6)
[2021-08-27 07:57] LABS: Potassium 3.9 mmol/L (3.5-5.1)
[2021-08-27] MEDS: HEPARIN SODIUM,PORCINE/PF 5,000 UNIT/0.5 ML SYRINGE SQ SCH ×2 (08:54→21:58)
[2021-08-27] MEDS: NON FORMULARY DRUG (Dapagliflozin Propanediol [Farxiga] 5 MG Tablet) PO SCH (08:54)
[2021-08-27] MEDS: PANTOPRAZOLE 40 MG TABLET PO SCH (08:55)
[2021-08-27] MEDS: ESCITALOPRAM 10 MG TAB PO SCH (08:55)
[2021-08-27] MEDS: GABAPENTIN 400 MG CAP PO SCH ×2 (08:55→21:58)
[2021-08-27] MEDS: amLODIPine 5 MG TAB PO SCH (08:55)
[2021-08-27] MEDS: METOPROLOL TARTRATE 25 MG TAB PO SCH ×2 (08:55→16:29)
[2021-08-27] MEDS: ISOSORBIDE MONONITRATE ER 60 MG TAB.ER.24H PO SCH (08:55)
[2021-08-27] MEDS: TICAGRELOR 90 MG TAB PO SCH ×2 (08:55→16:29)
[2021-08-27] MEDS: OXcarbazepine 300 MG TAB PO SCH ×2 (08:55→16:29)
[2021-08-27] MEDS: MEMANTINE 10 MG TAB PO SCH ×2 (08:55→16:30)
[2021-08-27] MEDS: metFORMIN 500 MG TAB PO SCH ×2 (08:56→16:30)
[2021-08-27] MEDS: SODIUM CHLORIDE 0.9% 1,000 ML IV SCH (11:15)
[2021-08-27] MEDS: HYDROcodone/APAP 5-325MG 1 EACH TAB PO PRN (11:15)
[2021-08-27] MEDS: valACYclovir 500 MG TAB PO SCH ×2 (11:16→21:59)
[2021-08-27 11:21] LABS: Glucose,Whole Blood 125 mg/dL (75-99)
[2021-08-27] MEDS: PRIMIDONE 250 MG TAB PO SCH ×2 (16:30→21:59)
[2021-08-27] MEDS: MAGNESIUM OXIDE 400 MG TAB PO SCH (16:30)
[2021-08-27] MEDS: ASCORBIC ACID 500 MG TAB PO SCH (16:31)
[2021-08-27] MEDS: MULTIVITAMINS, THERA 1 EACH TAB PO SCH (16:31)
[2021-08-27] MEDS: FOLIC ACID 1 MG TAB PO SCH (16:31)
[2021-08-27] MEDS: CYANOCOBALAMIN 500 MCG TAB PO SCH (16:31)
[2021-08-27] MEDS: THIAMINE 100 MG TAB PO SCH (16:31)
[2021-08-27] MEDS: ASPIRIN 81 MG PO SCH (16:31)
[2021-08-27 17:06] LABS: Glucose,Whole Blood 124 mg/dL (75-99)
--- NOTE | 2021-08-27 18:38 | PN ---
PROGRESS NOTE DATE OF SERVICE: 08/27/2021 This 70-year-old gentleman who was admitted with slurring of speech and possible acute TIA is being closely monitored. No chest pain. No palpitations. No fever. PHYSICAL EXAMINATION: Pulse is 59, blood pressure 120/71. Respirations 17. Abdomen: Soft. Nervous system: No focal deficits. Minimal diffuse weakness present. LABS: Reviewed. ASSESSMENT: 1. Slurring of speech and possible acute cerebrovascular accident and acute stroke. 2. History of multiple cerebrovascular accidents previously. 3. Gait dysfunction. 4. History of dementia. 5. Diabetes mellitus, type 2. 6. Hypertension. RECOMMENDATIONS AND DISCUSSION: Recommend to continue current medications, management and symptomatic treatment. Continue with antiplatelet agents. Closely follow with Neurology. Dr. Gold will follow tomorrow. Discussed with the family. Prognosis guarded. MMODL / IJN: [id number] / MTDD
[2021-08-27 19:58] LABS: Glucose,Whole Blood 118 mg/dL (75-99)
[2021-08-27] MEDS: DONEPEZIL 10 MG TAB PO SCH (21:58)
[2021-08-27] MEDS: FENOFIBRATE 160 MG TAB PO SCH (21:58)
[2021-08-27] MEDS: ATORVASTATIN 80 MG TAB PO SCH (21:58)
[2021-08-27] MEDS: SENNOSIDES-DOCUSATE SODIUM 1 EACH TAB PO SCH (21:58)
[2021-08-28] MEDS: SODIUM CHLORIDE 0.9% 1,000 ML IV SCH ×2 (00:41→12:23)
[2021-08-28 06:27] LABS: Glucose,Whole Blood 79 mg/dL (75-99)
[2021-08-28] MEDS: INSULIN ASPART (NovoLOG) 100 UNIT/ML VIAL SQ SCH ×4 (06:38→22:38)
[2021-08-28] MEDS: ISOSORBIDE MONONITRATE ER 60 MG TAB.ER.24H PO SCH (08:42)
[2021-08-28] MEDS: HEPARIN SODIUM,PORCINE/PF 5,000 UNIT/0.5 ML SYRINGE SQ SCH ×2 (08:42→22:45)
[2021-08-28] MEDS: valACYclovir 500 MG TAB PO SCH (08:42)
[2021-08-28] MEDS: amLODIPine 5 MG TAB PO SCH (08:42)
[2021-08-28] MEDS: TICAGRELOR 90 MG TAB PO SCH ×2 (08:42→16:03)
[2021-08-28] MEDS: GABAPENTIN 400 MG CAP PO SCH ×2 (08:42→22:45)
[2021-08-28] MEDS: METOPROLOL TARTRATE 25 MG TAB PO SCH ×2 (08:43→16:04)
[2021-08-28] MEDS: NON FORMULARY DRUG (Dapagliflozin Propanediol [Farxiga] 5 MG Tablet) PO SCH (08:43)
[2021-08-28] MEDS: MEMANTINE 10 MG TAB PO SCH ×2 (08:43→16:04)
[2021-08-28] MEDS: ESCITALOPRAM 10 MG TAB PO SCH (08:43)
[2021-08-28] MEDS: PANTOPRAZOLE 40 MG TABLET PO SCH (08:43)
[2021-08-28] MEDS: OXcarbazepine 300 MG TAB PO SCH ×2 (08:43→18:02)
--- NOTE | 2021-08-28 11:02 | P.PN ---
Subjective Progress Note Date: 08/28/21 This is a 70-year-old gentleman admitted with Benson's palsy with left facial droop, possible acute brainstem CVA, MRI pending in a patient with history of multiple prior CVAs with residual left-sided weakness-most recent in February 2021, multivessel dementia, CAD , diabetes mellitus and multiple other medical issues. Evaluated by neurology with neuro. workup in progress-Brain MRI pending. Maintained on acyclovir. Speech therapy evaluation pending. Denies diplopia. Denies chest pain, palpitations or shortness of breath. Objective - Vital Signs Vital signs: Vital Signs Temp 97.8 F 08/28/21 08:41 Pulse 69 08/28/21 08:41 Resp 17 08/28/21 08:41 BP 145/82 08/28/21 08:41 Pulse Ox 93 L 08/28/21 08:41 Intake & Output 08/27/21 08/28/21 08/28/21 18:59 06:59 18:59 Intake Total 1535 Balance 1535 Weight 119.4 kg Intake: Intake, IV Titration 900 Amount Sodium Chloride 0.9% 1, 900 000 ml @ 75 mls/hr IV . [id number] PA Rx#:[id number] Oral 635 Other: Voiding Method Diaper Diaper # Voids 2 1 - Exam PHYSICAL EXAM: VITAL SIGNS: [As above] GENERAL: Sitting up in bed, alert and oriented 3-6-Osbaywby,NAD, dysarthric HEENT: Conjunctivae normal. eyes normal. Left facial droop. NECK: No JVD. No thyroid enlargement. No LNs CARDIOVASCULAR: S1, S2 regular. No murmur RESPIRATION: Breath sounds diminished in the bases. No rhonchi or crackles. No bronchial breathing. ABDOMEN: Soft, nontender . No guarding. no masses palpable. No ascites, No hepatosplenomegaly.Bowel sounds heard. LEGS: No edema. no swelling PSYCHIATRY: Alert and oriented X3, mood and affect normal. NERVOUS SYSTEM: Left facial droop, speech dysarthric, Strength and sensation grossly intact. Skin: Warm and dry, no rash - Labs CBC & Chem 7: 08/27/21 07:33 08/27/21 07:33 Labs: Abnormal Lab Results - Last 24 Hours (Table) 08/27/21 08/27/21 08/27/21 Range/Units 11:19 17:03 19:54 POC Glucose (mg/dL) 125 H 124 H 118 H (75-99) mg/dL Assessment and Plan Assessment: -Benson's palsy, left facial droop in a patient with history of multiple CVAs, ruling out brainstem CVA, MRI pending. 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 -Seizure disorder -Hyperlipidemia -History of mediastinal lymphadenopathy -Degenerative disc disease Plan: Continue on current medication regime ,monitoring and symptomatic treatment. Brain MRI pending. Maintain valacyclovir. Prognosis guarded given multiple complex medical issues. Discharge planning in progress for return to [facility] subacute rehab. pending completion of neurology workup/clearance. The impression and plan of care has been dictated as directed. : I performed a history and examination of this patient, discussed the same with the dictator. I agree with the dictator's note ,documented as a scribe. Any additional findings or plans will be noted.
[2021-08-28 11:46] LABS: Glucose,Whole Blood 153 mg/dL (75-99)
[2021-08-28] MEDS: PRIMIDONE 250 MG TAB PO SCH ×2 (12:22→22:45)
[2021-08-28] MEDS: INSULIN DETEMIR (LEVEMIR) 100 UNIT/ML SYR SQ SCH (12:22)
[2021-08-28] MEDS: metFORMIN 500 MG TAB PO SCH ×2 (12:23→16:04)
--- NOTE | 2021-08-28 14:31 | MR ---
MR brain without contrast HISTORY: Cerebrovascular accident, altered mental status Multiplanar multisequence imaging through the brain, correlation to CT brain 08/25/2021, MR brain 03/13 Fast ranging protocol was utilized due to patient's debility There are scattered areas of restricted diffusion within the haleigh on the left, axial image #10 and 11 of series 303. There is evidence of chronic infarcts including inferior left cerebellar hemisphere a nd right cerebellar hemisphere. Corresponding hyperintensity is noted on inversion recovery and T2-we ighted sequences, encephalomalacia is present similar to prior exam, periventricular, pericallosal, s ubcortical white matter hyperintensity and inversion recovery and T2-weighted sequences is noted monet lar to prior exam, some encephalomalacia noted to the right parietal cortex towards the midline consi stent with patient's prior infarct. There is no evident hemorrhage. Prominence of the ventricles is a gain seen. There are expected vascular flow voids. Inflammatory changes are present within the mastoi d air cells bilaterally. Orbits show symmetric appearance. Corpus callosum, pituitary, cervical medul bernadette junction, cerebellopontine angles show stable appearance. IMPRESSION: Subacute infarct within the haleigh. Chronic small vessel ischemic changes, age related atro phy. Correlate to exclude normal pressure hydrocephalus. Mastoid inflammatory changes.
[2021-08-28] MEDS: ASCORBIC ACID 500 MG TAB PO SCH (16:04)
[2021-08-28] MEDS: ASPIRIN 81 MG PO SCH (16:04)
[2021-08-28] MEDS: THIAMINE 100 MG TAB PO SCH (16:04)
[2021-08-28] MEDS: FOLIC ACID 1 MG TAB PO SCH (16:04)
[2021-08-28] MEDS: CYANOCOBALAMIN 500 MCG TAB PO SCH (16:04)
[2021-08-28] MEDS: MAGNESIUM OXIDE 400 MG TAB PO SCH (16:04)
--- NOTE | 2021-08-28 16:05 | P.PN ---
Subjective Progress Note Date: 08/28/21 I am seeing the patient for the first time during this admission for neurological management. Please refer to Dr. Fischer for further details. The patient is seen at bedside and is accompanied by his who states he is weak in his right lower extremity more than baseline. Dr. Fischer had suspicion that patient has either stroke vs Benson's Palsy. Per the patient's she stated that the patient is compliant taking Berlant 90 mg a tablet twice a day and aspirin 81 mg daily. Objective - Vital Signs Vital signs: Vital Signs Temp 98.1 F 08/28/21 12:20 Pulse 68 08/28/21 12:20 Resp 19 08/28/21 12:20 BP 131/79 08/28/21 12:20 Pulse Ox 97 08/28/21 12:20 Intake & Output 08/27/21 08/28/21 08/28/21 18:59 06:59 18:59 Intake Total 1535 480 Balance 1535 480 Weight 119.4 kg Intake: Intake, IV Titration 900 Amount Sodium Chloride 0.9% 1, 900 000 ml @ 75 mls/hr IV . [id number] [facility] Rx#:[id number] Oral 635 480 Other: Voiding Method Diaper Diaper Diaper # Voids 2 1 1 - Exam Gen.: The patient is reclining in the bed. He is well-nourished, well-developed and in no acute distress. Neurological examination Mental status: The patient is awake, alert and oriented 3. The patient has no difficulty answering questions or following commands. No aphasia or neglect. Cranial nerves: Pupils are equal at 2 mm and reactive. Visual irizarry are full to confrontation. Extraocular movement assessment reveals decreased left lateral gaze. There is no nystagmus. Facial sensation is intact. There is a mild left lower motor neuron facial droop. There is mild decreased strength of left eyelid closure. Shoulder shrug is symmetric. Tongue protrudes midline. Motor: Gait is deferred because of his weakness. Bilateral upper extremity strength is 5/5. Left hip flexor and ankle plantar and dorsiflexor strength is 0/5. Right hip flexor 3+/5. Right lower extremity is 2. Left sided is 2/5 (old). Sensation: Grossly intact to light touch throughout. There is no extinction with double simultaneous stimulation. WORK-UP: Lipid panel is triglyceride of 397, cholesterol 266, LDL is 149 and HDL 37. TSH is 2.070 Hemoglobin A1c is 8.0. MRI BRAIN: Subacute infarct within the haleigh. Location is over the left haleigh. Chronic small vessel ischemic changes, age-related atrophy. Correlate to exclude normal pressure hydrocephalus. Mastoid inflammatory changes at. In the body they reported it is mentioned that there is evidence of chronic infarct including the inferior left cerebellar hemisphere and right cerebellar hemisphere. Carotid Duplex: Less than 50% stenosis of bilateral carotid systems. 2-D echo was reported as left ventricle size is normal. Moderate concentric left ventricular hypertrophy. Mild aortic valve sclerosis. - Labs CBC & Chem 7: 08/27/21 07:33 08/27/21 07:33 Labs: Abnormal Lab Results - Last 24 Hours (Table) 08/27/21 08/27/21 08/28/21 Range/Units 17:03 19:54 11:45 POC Glucose (mg/dL) 124 H 118 H 153 H (75-99) mg/dL Assessment and Plan Assessment: Acute stroke over the left pontine region (with mild left CN VII palsy) Recurrent strokes and his last stroke prior to that was in February 2021 in which he had right righ pareital/occipital. Had TURNER on 03/15/2021 and was unremarkable. Old cerebellar infarct. History of left hemiparesis over lower extremity due to stroke Dyslipidemia History of coronary artery disease Diabetes mellitus and his most recent hemoglobin A1c is 8.0 History of possible seizure History of Parkinson's disease History of vascular dementia Plan: Currently the patient is on aspirin 81 mg and Berlant 90 mg 1 tablet twice a day the patient continues to have recurrent strokes even though we continue to modify his medication. I would recommend use of eliquis since patient continues to have recurrent strokes to start within 4 days to avoid any hemorrhagic conversion. Consulted Cardiology who is known to their team for use of eliquis. Once starts on eliquis then dual antiplatelets is not warrented from neurological perspective and can discontinue ASA or Plavix and will defer that final decision to cardiology team. I spoke with the patient and his and they are in agreement of starting eliquis if needed. They were notified that risk of bleed cannot be excluded with its use. IN the past cardiology team was consulted for event monitor and not sure if he had one or not. Patient to follow-up with cardiology team as outpatient for further discussion. Continue Lipitor 80mg qhs for secondary stroke prophylaxis. Continue neuro cheks. Continue cardiac monitoring. PT, OT and [employer] are consulted. I stopped Valcylovir since this is due to stroke and not Benson's Palsy. Pending routine EEG. Will defer the rest of management to the primary team. Upon discharge, patient to follow-up with his neurologist (Dr. Alford's team) as outpatient within 1-2 weeks. The plan is discussed with the patient, his who is at bedside and his nurse. Edin Maldonado M.D. Neuro-Hospitalist Time with Patient: Less than 30
[2021-08-28 16:11] LABS: Glucose,Whole Blood 149 mg/dL (75-99)
--- NOTE | 2021-08-28 16:11 | EEG ---
ELECTROENCEPHALOGRAM REPORT DATE OF SERVICE: 08/28/2021. CLINICAL HISTORY: This is a 70-year-old gentleman with altered mental status. The video EEG is obtained to evaluate for seizure epileptiform activity. RELEVANT MEDICATION: Patient is not on any antiepileptic drug. EEG TYPE: A routine 21-channel EEG is performed with video using the 10/20 electrode system. DESCRIPTION: Only wakefulness is obtained. During awake state, the background consists of low to moderate voltage of 7 to 8 hertz that is poorly modulated, poorly sustained. There is no physiological sleep architecture seen. There is no focal slowing. Interictal and ictal is none. ACTIVATION PROCEDURE: Photic stimulation did not evoke a posterior driving response. There is no abnormality during photic stimulation. Hyperventilation is not performed. CLINICAL INTERPRETATION: This is an abnormal routine EEG. The background slowing is suggestive of mild encephalopathy of unknown etiology. There is no focal slowing, epileptiform discharge or seizure on the EEG. Clinical correlation is recommended. [place] / SAHIL: [id number] / MTDFrancisco
[2021-08-28] MEDS: MULTIVITAMINS, THERA 1 EACH TAB PO SCH (16:36)
[2021-08-28 19:51] LABS: Glucose,Whole Blood 142 mg/dL (75-99)
[2021-08-28] MEDS: SENNOSIDES-DOCUSATE SODIUM 1 EACH TAB PO SCH (22:45)
[2021-08-28] MEDS: DONEPEZIL 10 MG TAB PO SCH (22:45)
[2021-08-28] MEDS: ATORVASTATIN 80 MG TAB PO SCH (22:45)
[2021-08-28] MEDS: FENOFIBRATE 160 MG TAB PO SCH (22:45)
[2021-08-29] MEDS: SODIUM CHLORIDE 0.9% 1,000 ML IV SCH ×2 (05:12→16:34)
[2021-08-29 06:48] LABS: Glucose,Whole Blood 107 mg/dL (75-99)
[2021-08-29] MEDS: INSULIN ASPART (NovoLOG) 100 UNIT/ML VIAL SQ SCH ×4 (07:10→22:23)
[2021-08-29] MEDS: NON FORMULARY DRUG (Dapagliflozin Propanediol [Farxiga] 5 MG Tablet) PO SCH (08:20)
[2021-08-29] MEDS: TICAGRELOR 90 MG TAB PO SCH ×2 (08:24→15:52)
[2021-08-29] MEDS: metFORMIN 500 MG TAB PO SCH ×2 (08:24→15:53)
[2021-08-29] MEDS: ESCITALOPRAM 10 MG TAB PO SCH (08:24)
[2021-08-29] MEDS: MEMANTINE 10 MG TAB PO SCH ×2 (08:24→15:53)
[2021-08-29] MEDS: amLODIPine 5 MG TAB PO SCH (08:24)
[2021-08-29] MEDS: ISOSORBIDE MONONITRATE ER 60 MG TAB.ER.24H PO SCH (08:24)
[2021-08-29] MEDS: GABAPENTIN 400 MG CAP PO SCH ×2 (08:24→22:27)
[2021-08-29] MEDS: METOPROLOL TARTRATE 25 MG TAB PO SCH ×2 (08:24→15:53)
[2021-08-29] MEDS: HEPARIN SODIUM,PORCINE/PF 5,000 UNIT/0.5 ML SYRINGE SQ SCH ×2 (08:25→22:27)
[2021-08-29] MEDS: PANTOPRAZOLE 40 MG TABLET PO SCH (08:25)
[2021-08-29] MEDS: OXcarbazepine 300 MG TAB PO SCH ×2 (08:25→15:53)
[2021-08-29 11:20] LABS: Glucose,Whole Blood 111 mg/dL (75-99)
[2021-08-29] MEDS: INSULIN DETEMIR (LEVEMIR) 100 UNIT/ML SYR SQ SCH (11:22)
--- NOTE | 2021-08-29 12:26 | P.PN ---
Subjective Progress Note Date: 08/29/21 The patient is seen at bedside and per patient he feels he is doing slightly better today compared to yesterday and is able to lift up his right leg. Objective - Vital Signs Vital signs: Vital Signs Temp 98.2 F 08/29/21 08:00 Pulse 71 08/29/21 11:31 Resp 18 08/29/21 11:31 BP 111/66 08/29/21 11:31 Pulse Ox 98 08/29/21 11:31 Intake & Output 08/28/21 08/29/21 08/29/21 18:59 06:59 18:59 Intake Total 480 60 Output Total 200 Balance 480 -200 60 Weight 117.5 kg Intake: Oral 480 60 Output: Urine 200 Other: Voiding Method Diaper Diaper Diaper External Catheter External Catheter # Voids 1 # Bowel Movements 1 1 - Exam Gen.: The patient is reclining in the bed. He is well-nourished, well-developed and in no acute distress. Neurological examination Mental status: The patient is awake, alert and oriented 3. The patient has no difficulty answering questions or following commands. No aphasia or neglect. Cranial nerves: Pupils are equal at 2 mm and reactive. Visual irizarry are full to confrontation. Extraocular movement assessment reveals decreased left lateral gaze. There is no nystagmus. Facial sensation is intact. There is a mild left lower motor neuron facial droop. There is mild decreased strength of left eyelid closure. Shoulder shrug is symmetric. Tongue protrudes midline. Motor: Gait is deferred because of his weakness. Bilateral upper extremity strength is 5/5. Right lower extremity is 3-4. Left sided is 2/5 (old). Sensation: Grossly intact to light touch throughout. There is no extinction with double simultaneous stimulation. WORK-UP: Lipid panel is triglyceride of 397, cholesterol 266, LDL is 149 and HDL 37. TSH is 2.070 Hemoglobin A1c is 8.0. MRI BRAIN: Subacute infarct within the haleigh. Location is over the left haleigh. Chronic small vessel ischemic changes, age-related atrophy. Correlate to exclude normal pressure hydrocephalus. Mastoid inflammatory changes at. In the body they reported it is mentioned that there is evidence of chronic infarct including the inferior left cerebellar hemisphere and right cerebellar hemisphere. Carotid Duplex: Less than 50% stenosis of bilateral carotid systems. 2-D echo was reported as left ventricle size is normal. Moderate concentric left ventricular hypertrophy. Mild aortic valve sclerosis. Routine EEG on 08/28/2021 was abnormal. The background slowing suggestive of mild encephalopathy of unknown etiology. There is no focal slowing, epileptiform discharges or seizure on the EEG. 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 Had TURNER on 03/15/2021 and was unremarkable. Old cerebellar infarct. History of left hemiparesis over lower extremity due to stroke Dyslipidemia History of coronary artery disease Diabetes mellitus and his most recent hemoglobin A1c is 8.0 History of possible seizure History of Parkinson's disease History of vascular dementia Plan: Currently the patient is on aspirin 81 mg and Brilinta 90 mg 1 tablet twice a day the patient continues to have recurrent strokes even though we continue to modify his medication. I would recommend use of eliquis since patient continues to have recurrent strokes to start within 4 days to avoid any hemorrhagic conversion. Consulted Cardiology who is known to their team for use of eliquis. Once starts on eliquis then dual antiplatelets is not warrented from neurological perspective and can discontinue ASA or Plavix and will defer that final decision to cardiology team. I spoke with the patient and his and they are in agreement of starting eliquis if needed. They were notified that risk of bleed cannot be excluded with its use. IN the past cardiology team was consulted for event monitor and not sure if he had one or not. Patient to follow-up with cardiology team as outpatient for further discussion. Continue Lipitor 80mg qhs for secondary stroke prophylaxis. Continue neuro cheks. Continue cardiac monitoring. PT, OT and FUEL HOUSE ATTENDANT are consulted. Will defer the rest of management to the primary team. Upon discharge, patient to follow-up with his neurologist (Dr. Alford's team) as outpatient within 1-2 weeks. For DVT prophylaxis: On subq heparin 5000U every 12 hours. The plan is discussed with the patient, his and his nurse. Edin Maldonado M.D. Neuro-Hospitalist Time with Patient: Less than 30
--- NOTE | 2021-08-29 13:48 | P.CRDCN ---
History of Present Illness History of present illness: HISTORY OF PRESENTING ILLNESS This is a pleasant 70-year-old male past medical history significant for prior multiple CVAs, infarct high right parietal occipital region last admission 02/2021 with left sided residual, coronary artery disease status post PCI to the mid LAD and distal RCA in 2014 and PCI to proximal LAD in 2010, hypertension, dyslipidemia, diabetes mellitus, prior CVA. He follows in the office with Dr. Pickens. We have been asked to see in consultation for "Recurrent stroke and use of eliquis. Known to cardiology". Patient presents to the emergency department with difficulty with speech, states his speech was slowed and slurred and was present upon awakening on admission. MRI of the brain revealed subacute infarct within the haleigh, chronic small vessel ischemic changes. Neurology has been following the patient. Prior to admission patient was on Apirin and Brilinta. DIAGNOSTICS -Telemetry tracings throughout his hospitalization reveal sinus rhythm HR 60s- 70s no atrial fibrillation -EKG on arrival revealed sinus mechanism HR 64, with nonspecific ST abnormalities inferiorly. EKG appears similar to prior -Laboratory data reviewed, Sodium 139, K 3.9, BUN 16, sCr 1.13 -Current daily cardiac medications include amlodipine 5 mg daily, Brilinta 90 mg twice a day, Effient 10 mg daily, Lopressor 25 mg twice a day, Imdur 60 mg daily, aspirin 81 mg daily and atorvastatin 80 mg daily. -Echocardiogram obtained 08/26/2021 preserved LV systolic function with ejection fraction 55-60%, mildly enlarged right ventricle -TURNER 03/17/21- No cardiac source of embolism noted on the study. REVIEW OF SYSTEMS At the time of my exam: CONSTITUTIONAL: Denies fever or chills. CARDIOVASCULAR:Denies chest pain Denies shortness of breath, orthopnea, PND or palpitations. RESPIRATORY: Denies cough. GASTROINTESTINAL: Denies abdominal pain, diarrhea, constipation, nausea or vomiting. MUSCULOSKELETAL: Complains of left lower extremity weakness and left arm we akness Denies myalgias. NEUROLOGIC: Denies numbness, tingling, headache or weakness. ENDOCRINE: Denies fatigue, weight change, polydipsia or polyurina. GENITOURINARY: Denies burning, hematuria or urgency with micturation. HEMATOLOGIC: Denies history of anemia or bleeding. PHYSICAL EXAMINATION Vitals reviewed CONSTITUTIONAL: No apparent distress. HEENT: Head is normocephalic. Pupils are equal, round. Sclerae anicteric. Mucous membranes of the mouth are moist. No JVD. No carotid bruit. CHEST EXAMINATION: Lungs are clear to auscultation. No chest wall tenderness is noted on palpation or with deep breathing. HEART EXAMINATION: Regular rate and rhythm. S1, S2 heard. No murmurs, gallops or rub. ABDOMEN: Soft, nontender. EXTREMITIES: 2+ peripheral pulses, no lower extremity edema and no calf tenderness. NEUROLOGIC EXAMINATION: Patient is awake, alert and oriented x3. ASSESSMENT Acute stroke over the left pontine region CVA, 02/2021 with left-sided weakness History of coronary disease status post PCI of the mid LAD and distal RCA in 2014 and PCI of the proximal LAD in 2010 Type 2 diabetes Hypertension Dyslipidemia History of dementia History of seizure PLAN -No documentation of atrial fibrillation. From a cardiology perspective, there is no data to support any anticoagulation for non documented atrial fibrillation. A loop recorder, be discussed with patient follows up with Dr. Pickens. -Recommend continuing dual antiplatelet therapy and home cardiac medications Nurse Practitioner note has been reviewed, I agree with a documented findings and plan of care. Patient was seen and examined. Past Medical History Past Medical History: Coronary Artery Disease (CAD), Cancer, Chest Pain / Angina, CVA/TIA, Dementia, Diabetes Mellitus, Hyperlipidemia, Hypertension, Myocardial Infarction ([place]), Osteoarthritis (OA), Pneumonia, Renal Disease, Skin Disorder Additional Past Medical History / Comment(s): SEE DR BLEVINS'S NOTE FOR CARDIAC HX. HX OF SYNCOPAL EPISODES OF UNKNOWN CAUSE. Diabetes mellitus currently on insulin pump. SHORT TERM MEMORY LOSS. 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 COLONOCOSPY, LUMBAR EPIDURAL INJ, total 4 cardiac stents (2010 1 stent and 2014 3 stents),juventino cataracts/lens implants, colonoscopy, gold seed implants for prostate cancer. back surgery (11/2018) Past Anesthesia/Blood Transfusion Reactions: No Reported Reaction Additional Past Anesthesia/Blood Transfusion Reaction / Comment(s): CLAUSTROPHOBIC Date of Last Stent Placement:: 2014 Past Psychological History: No Psychological Hx Reported, Depression Smoking Status: Former smoker Past Alcohol Use History: None Reported Additional Past Alcohol Use History / Comment(s): STARTED SMOKING AROUND AGE 48( 1998) SMOKE A PIPE OR CIGARS 2-3 times a week but quit 04/2016. Past Drug Use History: None Reported - Past Family History Father Family Medical History: Cancer Additional Family Medical History / Comment(s): FATHER HAD BLADDER CANCER AND OF THIS IN HIS 40'S Mother Family Medical History: Cancer, Dementia Additional Family Medical History / Comment(s): UTERINE CANCER. Mother of dementia at the age of 89yrs. Medications and Allergies Home Medications Medication Instructions Recorded Confirmed Type Aspirin 81 mg PO DAILY@1700 01/12/15 08/25/21 History Atorvastatin Calcium [Lipitor] 80 mg PO HS 07/30/17 08/25/21 History Torsemide [Demadex] 5 mg PO DAILY PRN 02/20/18 08/25/21 History Magnesium Oxide 400 mg PO DAILY@1700 12/01/18 08/25/21 History Thiamine [Vitamin B-1] 100 mg PO DAILY@1700 01/06/19 08/25/21 History rOPINIRole HCL [Requip] 0.25 mg PO BID@0800,1700 01/06/19 08/25/21 History Fenofibrate Nanocrystallized 145 mg PO HS 06/13/20 08/25/21 History [Fenofibrate] Nitroglycerin Sl Tabs [Nitrostat] 0.4 mg SL Q5M PRN 06/13/20 08/25/21 History amLODIPine [Norvasc] 5 mg PO DAILY@0800 06/13/20 08/25/21 History Ascorbic Acid [Vitamin C] 1,000 mg PO DAILY@1700 07/03/20 08/25/21 History Donepezil [Aricept] 10 mg PO HS 07/03/20 08/25/21 History Metoprolol Tartrate [Lopressor] 25 mg PO BID@0800,1700 07/03/20 08/25/21 History OXcarbazepine [Trileptal] 300 mg PO BID@0800,1700 07/03/20 08/25/21 History Pantoprazole [Protonix] 40 mg PO DAILY@0800 07/03/20 08/25/21 History Primidone [Mysoline] 125 mg PO DAILY@1400 07/03/20 08/25/21 History Primidone [Mysoline] 250 mg PO HS 07/03/20 08/25/21 History Dapagliflozin Propanediol [Farxiga] 5 mg PO DAILY@0800 03/11/21 08/25/21 History Ergocalciferol [Vitamin D2 (1250 1,250 mcg PO Q30D@1700 03/11/21 08/25/21 History Mcg = 82903 Iu)] Folic Acid 1 mg PO DAILY@1700 03/11/21 08/25/21 History Multivitamins, Thera [Multivitamin 1 tab PO DAILY@1700 03/11/21 08/25/21 History (formulary)] Acetaminophen Tab [Tylenol] 650 mg PO Q4H PRN 04/19/21 08/25/21 History Cyanocobalamin [Vitamin B-12] 1,000 mcg PO DAILY@1700 04/19/21 08/25/21 History Escitalopram Oxalate [Lexapro] 10 mg PO DAILY@0800 04/19/21 08/25/21 History Insulin Glargine [Lantus Vial] 16 unit SQ DAILY@0700 04/19/21 08/25/21 History Memantine [Namenda] 10 mg PO BID@0800,1700 04/19/21 08/25/21 History Na Phos,M-B/Na Phos,Di-Ba [Fleet 133 ml RECTAL DAILY PRN 04/19/21 08/25/21 History Adult] Sennosides/Docusate Sodium [Senna 2 tab PO HS 04/19/21 08/25/21 History Plus 8.6-50 mg Tablet] Ticagrelor [Brilinta] 90 mg PO BID@0800,1700 04/19/21 08/25/21 History bisacodyL [Dulcolax] 10 mg RECTAL DAILY PRN 04/19/21 08/25/21 History Gabapentin [Neurontin] 400 mg PO BID@0800,2100 #6 cap 04/20/21 08/25/21 Rx Isosorbide Mononitrate ER [Imdur] 60 mg PO DAILY@0800 tablet 04/20/21 08/25/21 Rx HYDROcodone/APAP 5-325MG [Roby 1 tab PO BID PRN 08/25/21 08/25/21 History 5-325] Magnesium Hydroxide [Milk of 7,200 mg PO Q48H PRN 08/25/21 08/25/21 History Magnesia Concentrate] metFORMIN HCL [Glucophage] 500 mg PO BID@0800,1700 08/25/21 08/25/21 History polyethylene glycoL 3350 [Miralax] 17 gm PO DAILY PRN 08/25/21 08/25/21 History Allergies Allergy/AdvReac Type Severity Reaction Status Date / Time No Known Allergies Allergy Verified 08/25/21 15:49 Physical Exam Vitals: Vital Signs Temp Pulse Resp BP Pulse Ox 08/29/21 08:00 98.2 F 62 17 138/74 95 08/29/21 04:00 62 16 94 L 08/29/21 02:00 60 18 08/29/21 00:00 97.9 F 60 18 125/76 95 08/28/21 20:00 97.7 F 62 16 138/70 95 08/28/21 19:47 96 08/28/21 16:02 98.1 F 68 17 133/80 94 L 08/28/21 12:20 98.1 F 68 19 131/79 97 Intake and Output 08/28/21 08/29/21 08/29/21 22:59 06:59 14:59 Intake Total 0 60 Output Total 200 Balance 0 -200 60 Intake: Oral 0 60 Output: Urine 200 Other: Voiding Method Diaper Diaper External Catheter External Catheter # Bowel Movements 1 Weight 117.5 kg Results 08/27/21 07:33 08/27/21 07:33 Current Medications Generic Name Dose Route Start Last Admin Trade Name Freq PRN Reason Stop Dose Admin Acetaminophen 650 mg 08/25/21 16:04 Acetaminophen Tab 325 Mg Tab PO Q6HR PRN Mild Pain or Fever > 100.5 Hydrocodone Bitart/Acetaminophen 1 each 08/25/21 16:03 08/27/21 11:15 Hydrocodone/Apap 5-325mg 1 Each Tab PO 1 each BID PRN Administration Pain Alprazolam 0.5 mg 08/26/21 14:41 08/26/21 17:10 Alprazolam 0.5 Mg Tab PO 0.5 mg TID PRN Administration Anxiety Amlodipine Besylate 5 mg 08/26/21 08:00 08/29/21 08:24 Amlodipine 5 Mg Tab PO 5 mg DAILY@0800 [facility] Administration Ascorbic Acid 1,000 mg 08/25/21 17:00 08/28/21 16:04 Ascorbic Acid 500 Mg Tab PO 1,000 mg DAILY@1700 [facility] Administration Aspirin 81 mg 08/25/21 17:00 08/28/21 16:04 Aspirin 81 Mg PO 81 mg DAILY@1700 [facility] Administration Atorvastatin Calcium 80 mg 08/25/21 21:00 08/28/21 22:45 Atorvastatin 80 Mg Tab PO 80 mg HS [facility] Administration Bisacodyl 10 mg 08/25/21 16:03 Bisacodyl 10 Mg Supp RECTAL DAILY PRN Constipation Cyanocobalamin 1,000 mcg 08/25/21 17:00 08/28/21 16:04 Cyanocobalamin 500 Mcg Tab PO 1,000 mcg DAILY@1700 [facility] Administration Donepezil HCl 10 mg 08/25/21 21:00 08/28/21 22:45 Donepezil 10 Mg Tab PO 10 mg HS [facility] Administration Ergocalciferol 1,250 mcg 09/17/21 17:00 Ergocalciferol 1,250 Mcg (50,000 Iu) Capsule PO Q30D@1700 [facility] Escitalopram Oxalate 10 mg 08/26/21 08:00 08/29/21 08:24 Escitalopram 10 Mg Tab PO 10 mg DAILY@0800 [facility] Administration Fenofibrate 160 mg 08/25/21 21:00 08/28/21 22:45 Fenofibrate 160 Mg Tab PO 160 mg HS [facility] Administration Folic Acid 1 mg 08/25/21 17:00 08/28/21 16:04 Folic Acid 1 Mg Tab PO 1 mg DAILY@1700 [facility] Administration Furosemide 10 mg 08/25/21 16:03 Furosemide 10 Mg Tab PO DAILY PRN Edema Gabapentin 400 mg 08/25/21 21:00 08/29/21 08:24 Gabapentin 400 Mg Cap PO 400 mg BID@0800,2100 [facility] Administration Heparin Sodium (Porcine) 5,000 unit 08/25/21 21:00 08/29/21 08:25 Heparin Sodium,Porcine/Pf 5,000 Unit/0.5 Ml Syringe SQ 5,000 unit Q12HR [facility] Administration Sodium Chloride 1,000 mls @ 75 mls/hr 08/25/21 16:15 08/29/21 05:12 Saline 0.9% IV Not Given .[id number] [facility] Insulin Aspart 0 unit 08/25/21 17:30 08/29/21 07:10 Insulin Aspart (Novolog) 100 Unit/Ml Vial SQ Not Given ACHS [facility] Protocol Insulin Detemir 16 unit 08/26/21 07:00 08/28/21 12:22 Insulin Detemir (Levemir) 100 Unit/Ml Syr SQ 16 unit DAILY@0700 [facility] Administration Isosorbide Mononitrate 60 mg 08/26/21 08:00 08/29/21 08:24 Isosorbide Mononitrate Er 60 Mg Tab.Er.24h PO 60 mg DAILY@0800 [facility] Administration Magnesium Hydroxide 2,400 mg 08/25/21 16:03 Magnesium Hydroxide 2,400 Mg/10 Ml Cup PO Q48H PRN Constipation Magnesium Oxide 400 mg 08/25/21 17:00 08/28/21 16:04 Magnesium Oxide 400 Mg Tab PO 400 mg DAILY@1700 [facility] Administration Memantine 10 mg 08/25/21 17:00 08/29/21 08:24 Memantine 10 Mg Tab PO 10 mg BID@0800,1700 [facility] Administration Metformin HCl 500 mg 08/25/21 17:00 08/29/21 08:24 Metformin 500 Mg Tab PO 500 mg BID@0800,1700 [facility] Administration Metoprolol Tartrate 25 mg 08/25/21 17:00 08/29/21 08:24 Metoprolol Tartrate 25 Mg Tab PO 25 mg BID@0800,1700 [facility] Administration Multivitamins 1 each 08/25/21 17:00 08/28/21 16:36 Multivitamins, Thera 1 Each Tab PO Not Given DAILY@1700 [facility] Naloxone HCl 0.2 mg 08/25/21 16:04 Naloxone 0.4 Mg/Ml 1 Ml Vial IV Q2M PRN Opioid Reversal Non-Formulary Medication 5 mg 08/26/21 08:00 08/29/21 08:20 Dapagliflozin Propanediol [Farxiga] PO Not Given DAILY@0800 [facility] Oxcarbazepine 300 mg 08/25/21 17:00 08/29/21 08:25 Oxcarbazepine 300 Mg Tab PO 300 mg BID@0800,1700 [facility] Administration Pantoprazole Sodium 40 mg 08/26/21 08:00 08/29/21 08:25 Pantoprazole 40 Mg Tablet PO 40 mg DAILY@0800 [facility] Administration Polyethylene Glycol 17 gm 08/25/21 16:03 Polyethylene Glycol 3350 17 Gm Powd.Pack PO DAILY PRN Constipation Primidone 250 mg 08/25/21 21:00 08/28/21 22:45 Primidone 250 Mg Tab PO 250 mg HS PA Administration Primidone 125 mg 08/26/21 14:00 08/28/21 12:22 Primidone 250 Mg Tab PO 125 mg DAILY@1400 [facility] Administration Ropinirole HCl 0.25 mg 08/25/21 17:00 08/29/21 08:24 Ropinirole Hcl 0.25 Mg Tab PO 0.25 mg BID@0800,1700 PA Administration Senna/Docusate Sodium 2 each 08/25/21 21:00 08/28/21 22:45 Sennosides-Docusate Sodium 1 Each Tab PO Not Given HS PA Thiamine HCl 100 mg 08/25/21 17:00 08/28/21 16:04 Thiamine 100 Mg Tab PO 100 mg DAILY@1700 [facility] Administration Ticagrelor 90 mg 08/25/21 17:00 08/29/21 08:24 Ticagrelor 90 Mg Tab PO 90 mg BID@0800,1700 [facility] Administration Intake and Output 08/28/21 08/29/21 08/29/21 22:59 06:59 14:59 Intake Total 0 60 Output Total 200 Balance 0 -200 60 Intake: Oral 0 60 Output: Urine 200 Other: Voiding Method Diaper Diaper External Catheter External Catheter # Bowel Movements 1 Weight 117.5 kg 08/27/21 07:33 08/27/21 07:33
--- NOTE | 2021-08-29 14:14 | FL ---
EXAMINATION TYPE: FL barium swallow w video DATE OF EXAM: 08/29/2021 CLINICAL HISTORY: 70-year-old male rule out aspiration, gurgling at the bedside. Patient with pontine infarct. TECHNIQUE: Deglutition study is performed utilizing thin liquid barium, honey and nectar thick liqui d barium, barium thick pudding, and barium coated cracker. COMPARISON: None. Total fluoroscopy time: 3 minutes 30 seconds. Total images: None. Real-time fluoroscopy support was provided to speech pathology. FINDINGS: initiation was delayed with bolus free spilling to the level of the piriform sinuses. The oral and pharyngeal phases show satisfactory initiation and propagation with all modalities teste d. Normal mastication is seen with solid modalities tested. There is deep penetration with thin barium. There is sneha aspiration of solids while attempting a ne ctar liquid wash. This is followed by a severe fit of coughing. No significant pharyngeal residue was appreciated. IMPRESSION: 1. Delayed swallow. 2. Aspiration of solids while attempting a nectar liquid wash. 3. Deep penetration with thin liquid. 4. Please refer to speech therapist notes for further details if necessary.
--- NOTE | 2021-08-29 15:23 | P.PN ---
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 Evaluated by neurology with neuro. workup in progress-Brain MRI pending. Maintained on acyclovir. Speech therapy evaluation pending. Denies diplopia. Denies chest pain, palpitations or shortness of breath. 08/29/2021 Brain MRI completed, reporting subacute infarct within the haleigh, on the left. Extensive chronic infarcts including inferior left cerebellar hemisphere and right cerebellar hemisphere. Chronic small vessel ischemic changes, age-related atrophy. Correlate to exclude normal pressure hydrocephalus. Mastoid inflammatory changes. Cardiology consult in place as pe r neurology regarding prior event monitor/eliquis-refer to neurology PN. Significant clinical improvement. MBS pending. EEG reported abnormal, background slowing, suggestive of mild encephalopathy, etiology unclear. Reported no focal slowing, no epileptiform discharge or seizure. Currently main tained on dual antiplatelet therapy, statin. Objective - Vital Signs Vital signs: Vital Signs Temp 98.2 F 08/29/21 08:00 Pulse 71 08/29/21 11:31 Resp 18 08/29/21 11:31 BP 111/66 08/29/21 11:31 Pulse Ox 98 08/29/21 11:31 Intake & Output 08/28/21 08/29/21 08/29/21 18:59 06:59 18:59 Intake Total 480 180 Output Total 200 1000 Balance 480 -200 -820 Weight 117.5 kg Intake: Oral 480 180 Output: Urine 200 1000 Other: Voiding Method Diaper Diaper Diaper External Catheter External Catheter # Voids 1 # Bowel Movements 1 1 - Exam PHYSICAL EXAM: VITAL SIGNS: [As above] GENERAL: Sitting up in bed, alert and oriented 3,NAD HEENT: Conjunctivae normal. eyes normal. Mild Left facial droop. NECK: No JVD. No thyroid enlargement. No LNs CARDIOVASCULAR: S1, S2 regular. No murmur RESPIRATION: Breath sounds diminished in the bases. No rhonchi or crackles. No bronchial breathing. ABDOMEN: Soft, nontender . No guarding. no masses palpable. No ascites, No hepatosplenomegaly.Bowel sounds heard. LEGS: No edema. no swelling PSYCHIATRY: Alert and oriented X3, mood and affect normal. NERVOUS SYSTEM: Left facial droop, chronic left lower extremity weakness- residual. Strength and sensation grossly intact. Skin: Warm and dry, no rash - Labs CBC & Chem 7: 08/27/21 07:33 08/27/21 07:33 Labs: Abnormal Lab Results - Last 24 Hours (Table) 08/28/21 08/28/21 08/29/21 Range/Units 16:09 19:49 06:47 POC Glucose (mg/dL) 149 H 142 H 107 H (75-99) mg/dL 08/29/21 Range/Units 11:19 POC Glucose (mg/dL) 111 H (75-99) mg/dL Assessment and Plan Assessment: -Subacute infarct within the left haleigh, with mild left palsy,CN VII, in a patient with history of recurrent strokes. Chronic cerebellar infarcts reported per MRI. 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 -Seizure disorder -History of Parkinson's disease -Hyperlipidemia -History of mediastinal lymphadenopathy -Degenerative disc disease Plan: Continue on current medication regime ,monitoring and symptomatic treatment. Cardiology consult in place regarding prior event monitor/eliquis as per neurology-currently on dual antiplatelet therapy. Prognosis guarded given multiple complex medical issues. Discharge planning in progress for return to [facility] subacute rehab. pending completion of neurology workup/clearance. The impression and plan of care has been dictated as directed. : I performed a history and examination of this patient, discussed the same with the dictator. I agree with the dictator's note ,documented as a scribe. Any additional findings or plans will be noted.
[2021-08-29] MEDS: ASCORBIC ACID 500 MG TAB PO SCH (15:52)
[2021-08-29] MEDS: CYANOCOBALAMIN 500 MCG TAB PO SCH (15:52)
[2021-08-29] MEDS: PRIMIDONE 250 MG TAB PO SCH ×2 (15:52→22:27)
[2021-08-29] MEDS: ALPRAZolam 0.5 MG TAB PO PRN (15:52)
[2021-08-29] MEDS: ASPIRIN 81 MG PO SCH (15:53)
[2021-08-29] MEDS: FOLIC ACID 1 MG TAB PO SCH (15:53)
[2021-08-29] MEDS: THIAMINE 100 MG TAB PO SCH (15:53)
[2021-08-29] MEDS: MULTIVITAMINS, THERA 1 EACH TAB PO SCH (15:53)
[2021-08-29] MEDS: MAGNESIUM OXIDE 400 MG TAB PO SCH (15:54)
[2021-08-29 16:25] LABS: Glucose,Whole Blood 142 mg/dL (75-99)
[2021-08-29] MEDS: SENNOSIDES-DOCUSATE SODIUM 1 EACH TAB PO SCH (22:27)
[2021-08-29] MEDS: ATORVASTATIN 80 MG TAB PO SCH (22:27)
[2021-08-29] MEDS: DONEPEZIL 10 MG TAB PO SCH (22:27)
[2021-08-29] MEDS: FENOFIBRATE 160 MG TAB PO SCH (22:27)
[2021-08-30] MEDS: SODIUM CHLORIDE 0.9% 1,000 ML IV SCH (04:30)
[2021-08-30 06:12] LABS: Glucose,Whole Blood 135 mg/dL (75-99)
[2021-08-30] MEDS: INSULIN ASPART (NovoLOG) 100 UNIT/ML VIAL SQ SCH ×2 (06:29→13:35)
[2021-08-30 08:28] VITALS: RESP 16; TEMP 98
[2021-08-30] MEDS: ISOSORBIDE MONONITRATE ER 60 MG TAB.ER.24H PO SCH (08:30)
[2021-08-30] MEDS: amLODIPine 5 MG TAB PO SCH (08:30)
[2021-08-30] MEDS: PANTOPRAZOLE 40 MG TABLET PO SCH (08:30)
[2021-08-30] MEDS: METOPROLOL TARTRATE 25 MG TAB PO SCH (08:30)
[2021-08-30] MEDS: MEMANTINE 10 MG TAB PO SCH (08:31)
[2021-08-30] MEDS: metFORMIN 500 MG TAB PO SCH (08:31)
[2021-08-30] MEDS: TICAGRELOR 90 MG TAB PO SCH (08:31)
[2021-08-30] MEDS: HEPARIN SODIUM,PORCINE/PF 5,000 UNIT/0.5 ML SYRINGE SQ SCH (08:31)
[2021-08-30] MEDS: GABAPENTIN 400 MG CAP PO SCH (08:31)
[2021-08-30] MEDS: ESCITALOPRAM 10 MG TAB PO SCH (08:31)
[2021-08-30] MEDS: OXcarbazepine 300 MG TAB PO SCH (08:32)
[2021-08-30] MEDS: NON FORMULARY DRUG (Dapagliflozin Propanediol [Farxiga] 5 MG Tablet) PO SCH (08:32)
[2021-08-30 10:27] VITALS: BMI 37.1
--- NOTE | 2021-08-30 11:07 | P.DS ---
Providers Date of admission: 08/25/21 16:04 Expected date of discharge: 08/30/21 Attending physician: Cedric Gold Consults: 08/25/21 16:09 Consult Physician Routine Consulting Provider: Mariel Guaman Consult Reason/Comments: AMS Do you want consulting provider notified?: Yes 08/28/21 15:56 Consult Physician Routine Consulting Provider: Paramjit Holcomb Consult Reason/Comments: Recurrent stroke and use of eliquis. Known to cardiology Do you want consulting provider notified?: Yes Primary care physician: Cedric Gold [facility] Course: Final Diagnoses: -Subacute infarct within the left haleigh, with mild left palsy,CN VII, in a patient with history of recurrent strokes. Chronic cerebellar infarcts reported per MRI. 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 -Seizure disorder -History of Parkinson's disease -Hyperlipidemia -History of mediastinal lymphadenopathy -Degenerative disc disease Hospital course:This is a 70-year-old gentleman admitted with Benson's palsy with left facial droop, possible acute brainstem CVA, MRI pending in a patient with history of multiple prior CVAs with residual left-sided weakness-most recent in February 2021, multivessel dementia, CAD , diabetes mellitus and multiple other medical issues. Evaluated by neurology with neuro. workup in progress-Brain MRI pending. Maintained on acyclovir. Speech therapy evaluation pending. Denies diplopia. Denies chest pain, palpitations or shortness of breath. Brain MRI completed, reporting subacute infarct within the haleigh, on the left. Extensive chronic infarcts including inferior left cerebellar hemisphere and right cerebellar hemisphere. Chronic small vessel ischemic changes, age-related atrophy. Correlate to exclude normal pressure hydrocephalus. Mastoid inflammatory changes. Cardiology consult in place as per neurology regarding eliquis-refer to neurology PN. Significant clinical improvement. Patient will be discharged to [facility] subacute rehab. Pending final DC recommendations/anticoagulation/antiplatelet tx, dc clearance as per cardiology and neurology. Significant clinical improvement. Per cardiology, no documentation of atrial fibrillation therefore not recommending eliquis AT this time, recommending to continue with dual antiplatelet therapy as per neurology; loop recorder will be discussed with the patient at follow-up visit with . Patient will be discharged to [facility] subacute rehab today in a stable condition with guarded prognosis pending final clearance per neurology. The impression and plan of care has been dictated as directed. : I performed a history and examination of this patient, discussed the same with the dictator. I agree with the dictator's note ,documented as a scribe. Any additional findings or plans will be noted. Patient Condition at Discharge: Stable Plan - Discharge Summary Discharge Rx Participant: Yes New Discharge Prescriptions: New INSULIN LISPRO (HumaLOG) [humaLOG] 0 unit SQ ACHS #10 ml Continue Aspirin 81 mg PO DAILY@1700 Atorvastatin Calcium [Lipitor] 80 mg PO HS Torsemide [Demadex] 5 mg PO DAILY PRN PRN Reason: Edema Magnesium Oxide 400 mg PO DAILY@1700 rOPINIRole HCL [Requip] 0.25 mg PO BID@0800,1700 Thiamine [Vitamin B-1] 100 mg PO DAILY@1700 amLODIPine [Norvasc] 5 mg PO DAILY@0800 Fenofibrate Nanocrystallized [Fenofibrate] 145 mg PO HS Nitroglycerin Sl Tabs [Nitrostat] 0.4 mg SL Q5M PRN PRN Reason: Chest Pain OXcarbazepine [Trileptal] 300 mg PO BID@0800,1700 Metoprolol Tartrate [Lopressor] 25 mg PO BID@0800,1700 Primidone [Mysoline] 250 mg PO HS Primidone [Mysoline] 125 mg PO DAILY@1400 Pantoprazole [Protonix] 40 mg PO DAILY@0800 Ascorbic Acid [Vitamin C] 1,000 mg PO DAILY@1700 Donepezil [Aricept] 10 mg PO HS Ergocalciferol [Vitamin D2 (1250 Mcg = 74239 Iu)] 1,250 mcg PO Q30D@1700 Folic Acid 1 mg PO DAILY@1700 Multivitamins, Thera [Multivitamin (formulary)] 1 tab PO DAILY@1700 Acetaminophen Tab [Tylenol] 650 mg PO Q4H PRN PRN Reason: Fever bisacodyL [Dulcolax] 10 mg RECTAL DAILY PRN PRN Reason: Constipation Escitalopram Oxalate [Lexapro] 10 mg PO DAILY@0800 Memantine [Namenda] 10 mg PO BID@0800,1700 Sennosides/Docusate Sodium [Senna Plus 8.6-50 mg Tablet] 2 tab PO HS metFORMIN HCL [Glucophage] 500 mg PO BID@0800,1700 Magnesium Hydroxide [Milk of Magnesia Concentrate] 7,200 mg PO Q48H PRN PRN Reason: Constipation Gabapentin [Neurontin] 400 mg PO BID@0800,2100 #6 cap Dapagliflozin Propanediol [Farxiga] 5 mg PO DAILY@0800 Cyanocobalamin [Vitamin B-12] 1,000 mcg PO DAILY@1700 Insulin Glargine [Lantus Vial] 16 unit SQ DAILY@0700 Na Phos,M-B/Na Phos,Di-Ba [Fleet Adult] 133 ml RECTAL DAILY PRN PRN Reason: Constipation Ticagrelor [Brilinta] 90 mg PO BID@0800,1700 Isosorbide Mononitrate ER [Imdur] 60 mg PO DAILY@0800 tablet polyethylene glycoL 3350 [Miralax] 17 gm PO DAILY PRN PRN Reason: Constipation HYDROcodone/APAP 5-325MG [[place] 5-325] 1 tab PO BID PRN #6 tab PRN Reason: Pain Discharge Medication List Aspirin 81 mg PO DAILY@1700 01/12/15 [History] Atorvastatin Calcium [Lipitor] 80 mg PO HS 07/30/17 [History] Torsemide [Demadex] 5 mg PO DAILY PRN 02/20/18 [History] Magnesium Oxide 400 mg PO DAILY@1700 12/01/18 [History] Thiamine [Vitamin B-1] 100 mg PO DAILY@17001/06/19 [History] rOPINIRole HCL [Requip] 0.25 mg PO BID@0800,1700 01/06/19 [History] Fenofibrate Nanocrystallized [Fenofibrate] 145 mg PO HS 06/13/20 [History] Nitroglycerin Sl Tabs [Nitrostat] 0.4 mg SL Q5M PRN 06/13/20 [History] amLODIPine [Norvasc] 5 mg PO DAILY@0800 06/13/20 [History] Ascorbic Acid [Vitamin C] 1,000 mg PO DAILY@1700 07/03/20 [History] Donepezil [Aricept] 10 mg PO HS 07/03/20 [History] Metoprolol Tartrate [Lopressor] 25 mg PO BID@0800,1700 07/03/20 [History] OXcarbazepine [Trileptal] 300 mg PO BID@0800,1700 07/03/20 [History] Pantoprazole [Protonix] 40 mg PO DAILY@0800 07/03/20 [History] Primidone [Mysoline] 125 mg PO DAILY@1400 07/03/20 [History] Primidone [Mysoline] 250 mg PO HS 07/03/20 [History] Dapagliflozin Propanediol [Farxiga] 5 mg PO DAILY@0800 03/11/21 [History] Ergocalciferol [Vitamin D2 (1250 Mcg = 27918 Iu)] 1,250 mcg PO Q30D@169903/11/21 [History] Folic Acid 1 mg PO DAILY@169903/11/21 [History] Multivitamins, Thera [Multivitamin (formulary)] 1 tab PO DAILY@17003/11/21 [History] Acetaminophen Tab [Tylenol] 650 mg PO Q4H PRN 04/19/21 [History] Cyanocobalamin [Vitamin B-12] 1,000 mcg PO DAILY@17004/19/21 [History] Escitalopram Oxalate [Lexapro] 10 mg PO DAILY@0800 04/19/21 [History] Insulin Glargine [Lantus Vial] 16 unit SQ DAILY@0700 04/19/21 [History] Memantine [Namenda] 10 mg PO BID@0800,1700 04/19/21 [History] Na Phos,M-B/Na Phos,Di-Ba [Fleet Adult] 133 ml RECTAL DAILY PRN 04/19/21 [History] Sennosides/Docusate Sodium [Senna Plus 8.6-50 mg Tablet] 2 tab PO HS 04/19/21 [History] Ticagrelor [Brilinta] 90 mg PO BID@0800,1700 04/19/21 [History] bisacodyL [Dulcolax] 10 mg RECTAL DAILY PRN 04/19/21 [History] Isosorbide Mononitrate ER [Imdur] 60 mg PO DAILY@0800 tablet 04/20/21 [Rx] Magnesium Hydroxide [Milk of Magnesia Concentrate] 7,200 mg PO Q48H PRN 08/25/21 [History] metFORMIN HCL [Glucophage] 500 mg PO BID@0800,1700 08/25/21 [History] polyethylene glycoL 3350 [Miralax] 17 gm PO DAILY PRN 08/25/21 [History] Gabapentin [Neurontin] 400 mg PO BID@0800,2100 #6 cap 08/29/21 [Rx] HYDROcodone/APAP 5-325MG [[place] 5-325] 1 tab PO BID PRN #6 tab 08/29/21 [Rx] INSULIN LISPRO (HumaLOG) [humaLOG] 0 unit SQ ACHS #10 ml 08/30/21 [Rx] Follow up Appointment(s)/Referral(s): Cedric Gold DO [Primary Care Provider] - 1 Week (After discharge from [facility]) Tato Milton, [NON-STAFF] - As Needed Glo Alford MD [Medical Doctor] - 1 Week Mary Pickens MD [STAFF PHYSICIAN] - 1 Week Activity/Diet/Wound Care/Special Instructions: Tato CBC,BMP in 3 days Discharge Disposition: TRANSFER TO SNF/ECF
[2021-08-30 13:20] LABS: Glucose,Whole Blood 179 mg/dL (75-99)
[2021-08-30] MEDS: INSULIN DETEMIR (LEVEMIR) 100 UNIT/ML SYR SQ SCH (13:22)
--- NOTE | 2021-08-30 13:25 | P.PN ---
Subjective Progress Note Date: 08/30/21 The patient is seen at bedside and is accompanied by his . He feels about the same as yesterday. Objective - Vital Signs Vital signs: Vital Signs Temp 98.0 F 08/30/21 08:00 Pulse 62 08/30/21 04:00 Resp 16 08/30/21 08:00 BP 143/80 08/30/21 08:00 Pulse Ox 97 08/30/21 08:00 Intake & Output 08/29/21 08/30/21 08/30/21 18:59 06:59 18:59 Intake Total 180 Output Total 1000 Balance -820 Weight 117.5 kg 117.5 kg Intake: Oral 180 Output: Urine 1000 Other: Voiding Method Diaper Diaper Diaper External Catheter External Catheter External Catheter # Voids 1 - Exam Gen.: The patient is reclining in the bed. He is well-nourished, well-developed and in no acute distress. Neurological examination Mental status: The patient is awake, alert and oriented 3. The patient has no difficulty answering questions or following commands. No aphasia or neglect. Cranial nerves: Pupils are equal at 2 mm and reactive. Visual irizarry are full to confrontation. Extraocular movement assessment reveals decreased left lateral gaze. There is no nystagmus. Facial sensation is intact. There is a mild left lower motor neuron facial droop. There is mild decreased strength of left eyelid closure. Shoulder shrug is symmetric. Tongue protrudes midline. Motor: Gait is deferred because of his weakness. Bilateral upper extremity strength is 5/5. Right lower extremity is 3-4. Left sided is 2/5 (old). Sensation: Grossly intact to light touch throughout. There is no extinction with double simultaneous stimulation. WORK-UP: Lipid panel is triglyceride of 397, cholesterol 266, LDL is 149 and HDL 37. TSH is 2.070 Hemoglobin A1c is 8.0. MRI BRAIN: Subacute infarct within the haleigh. Location is over the left haleigh. Chronic small vessel ischemic changes, age-related atrophy. Correlate to exclude normal pressure hydrocephalus. Mastoid inflammatory changes at. In the body they reported it is mentioned that there is evidence of chronic infarct including the inferior left cerebellar hemisphere and right cerebellar lars sphere. Carotid Duplex: Less than 50% stenosis of bilateral carotid systems. 2-D echo was reported as left ventricle size is normal. Moderate concentric left ventricular hypertrophy. Mild aortic valve sclerosis. Routine EEG on 08/28/2021 was abnormal. The background slowing suggestive of mild encephalopathy of unknown etiology. There is no focal slowing, epileptiform discharges or seizure on the EEG. - Labs CBC & Chem 7: 08/27/21 07:33 08/27/21 07:33 Labs: Abnormal Lab Results - Last 24 Hours (Table) 08/29/21 08/30/21 Range/Units 16:23 06:10 POC Glucose (mg/dL) 142 H 135 H (75-99) mg/dL Assessment and Plan Assessment: Acute stroke over the left pontine region (with mild left CN VII palsy) Recurrent strokes and his last stroke prior to that was in February 2021 in which he had right righ pareital/occipital. Had TURNER on 03/15/2021 and was unremarkable. Old cerebellar infarct. History of left hemiparesis over lower extremity due to stroke Dyslipidemia History of coronary artery disease Diabetes mellitus and his most recent hemoglobin A1c is 8.0 History of possible seizure History of Parkinson's disease History of vascular dementia Plan: Currently the patient is on aspirin 81 mg and Brilinta 90 mg 1 tablet twice a day the patient continues to have recurrent strokes even though we continue to modify his medication. Cardiology stated patient does not have atrial fibrillation and no need for anticoagulation from cardiac perspective. I spoke with the patient and his and notified that he continues to have strokes even though we modified his medication. He is in agreement in starting anticoagulant. He was notified that there could be risk of bleed and he understand. Therefore on 09/01/21, recommend to start Eliquis 2.5mg 1 tab bid and stop ASA but to continue Brilinta 90mg 1 tab bid. Patient to follow-up with cardiology as outpatient regarding possible loop recorder. Continue Lipitor 80mg qhs for secondary stroke prophylaxis. Continue neuro cheks. Continue cardiac monitoring. PT, OT and AUTOPSY PATHOLOGIST are consulted. Will defer the rest of management to the primary team. Upon discharge, patient to follow-up with his neurologist (Dr. Alford's team) as outpatient within 1-2 weeks. For DVT prophylaxis: On subq heparin 5000U every 12 hours. The plan is discussed with the patient, his and his nurse. There is no further neurological work-up. Patient is clear from neurological perspective. Edin Maldonado M.D. Neuro-Hospitalist Time with Patient: Less than 30
[2021-08-30] MEDS: PRIMIDONE 250 MG TAB PO SCH (13:36)
[2021-08-30 13:53] VITALS: BP 117/70; PULSE 67
[2021-09-17] MEDS ORDERED: ERGOCALCIFEROL 1,250 MCG (50,000 IU) CAPSULE PO SCH (17:00)
== END 2021-08-30 14:34 | DRG 65 ==
LOC: EC 12:58 → 3SCARD 16:04
PROVIDERS: ADMIT Family Medicine; ATTEND Family Medicine
DX: I63.9 Cerebral infarction, unspecified (principal); I69.354 Hemiplegia and hemiparesis following cerebral infarction affecting left non-dominant side; H49.22 Sixth [abducent] nerve palsy, left eye; E11.22 Type 2 diabetes mellitus with diabetic chronic kidney disease; E11.42 Type 2 diabetes mellitus with diabetic polyneuropathy; G20 Parkinson's disease; F01.50 Vascular dementia, unspecified severity, without behavioral disturbance, psychotic disturbance, mood disturbance, and anxiety; G40.909 Epilepsy, unspecified, not intractable, without status epilepticus; N18.30 Chronic kidney disease, stage 3 unspecified; J44.9 Chronic obstructive pulmonary disease, unspecified; Z79.4 Long term (current) use of insulin; Z20.822 Contact with and (suspected) exposure to COVID-19; R47.81 Slurred speech; R47.1 Dysarthria and anarthria; I12.9 Hypertensive chronic kidney disease with stage 1 through stage 4 chronic kidney disease, or unspecified chronic kidney disease; I25.10 Atherosclerotic heart disease of native coronary artery without angina pectoris; E78.5 Hyperlipidemia, unspecified; I25.2 Old myocardial infarction; F32.A Depression, unspecified; G89.29 Other chronic pain; M54.9 Dorsalgia, unspecified; M19.90 Unspecified osteoarthritis, unspecified site; R26.9 Unspecified abnormalities of gait and mobility; R59.0 Localized enlarged lymph nodes; Z79.82 Long term (current) use of aspirin; Z79.84 Long term (current) use of oral hypoglycemic drugs; Z79.02 Long term (current) use of antithrombotics/antiplatelets; Z79.899 Other long term (current) drug therapy; Z87.01 Personal history of pneumonia (recurrent); Z96.41 Presence of insulin pump (external) (internal); Z92.3 Personal history of irradiation; Z85.46 Personal history of malignant neoplasm of prostate; Z87.81 Personal history of (healed) traumatic fracture; Z87.442 Personal history of urinary calculi; Z95.5 Presence of coronary angioplasty implant and graft; Z96.1 Presence of intraocular lens; Z98.42 Cataract extraction status, left eye; Z98.41 Cataract extraction status, right eye; Z87.891 Personal history of nicotine dependence; Z87.2 Personal history of diseases of the skin and subcutaneous tissue; Z98.890 Other specified postprocedural states; Z80.52 Family history of malignant neoplasm of bladder; Z82.0 Family history of epilepsy and other diseases of the nervous system; Z80.49 Family history of malignant neoplasm of other genital organs
CPT/HCPCS: 36415; 70450; 70551; 71045; 74230; 80048; 80053; 80061; 80171; 80306; 81003; 82803; 83036; 83605; 83735; 84443; 84484; 85025; 85610; 85730; 87635; 93005; 93306; 93880; 94760; 95816; 99285